=== PATIENT | female | born 1930 | race American Indian/Alaskan Native ===

== ENCOUNTER 2017-04-06 13:00 | Inpatient (IN) | payer MEDICARE, BC ==
[2017-04-06] MEDS ORDERED: Lidocaine 5% Patch TD STA (13:55)
--- NOTE | 2017-04-06 14:09 | ED PDOC ---
Arrival/HPI - General Chief Complaint: Back Pain Time Seen by Provider: 04/06/17 13:21 Historian: Patient, Family - History of Present Illness Narrative History of Present Illness (Text): 04/06/17 13:48 A 87 year old female, whose past medical history includes Parkinson's, hypertension and hyperlipidemia, presents to the emergency department complaining of lower back pain. Per family, patient had trouble getting up yesterday due to sudden back pain. Family contacted PMD and was told to receive X-Rays and MRI. While patient was about to have MRI done, she began experiencing severe pain and fell straight down to the floor and was assisted by family member. Also, when patient had to lay back for X-Ray process, patient was unable to lay flat down due to back pain. PMD was contacted afterwards and directed them to go to the ER. Patient was brought in by wheelchair and does not use a walker. Patient denies of any loss of consciousness, chest pain, shortness of breath, urinary output changes, or any other complaints. Family is uncertain if patient has had any prior injuries. Also, family states patient last had bloodwork done in July and has no history of kidney problems. PMD: Dr. Codie Chowdary Time/Duration: 24 hours Symptom Onset: Sudden Symptom Course: Unchanged Past Medical History - Provider Review Nursing Documentation Reviewed: Yes - Cardiac Hx Cardiac Disorders: Yes Hx Hypertension: Yes - Pulmonary Hx Respiratory Disorders: No - Neurological Hx Neurological Disorder: Yes Hx Parkinson's Disease: Yes - HEENT Hx HEENT Disorder: No - Renal Hx Renal Disorder: No - Endocrine/Metabolic Hx Endocrine Disorders: No - Hematological/Oncological Hx Blood Disorders: No - Integumentary Hx Dermatological Disorder: No - Musculoskeletal/Rheumatological Hx Falls: No - Gastrointestinal Hx Gastrointestinal Disorders: No - Genitourinary/Gynecological Hx Genitourinary Disorders: No - Psychiatric Hx Psychophysiologic Disorder: No Hx Substance Use: No - Surgical History Other/Comment: eye surgeryfatty tissue removed from both eyelids Family/Social History - Physician Review Nursing Documentation Reviewed: Yes Family/Social History: No Known Family HX Smoking Status: Never Smoked Hx Alcohol Use: No Hx Substance Use: No Allergies/Home Meds Allergies/Adverse Reactions: Allergies No Known Allergies Allergy (Verified 10/08/15 12:55) Home Medications: Home Meds Medication Instructions Recorded Confirmed Carbidopa/Levodopa 50/200 CR 50 mg PO DAILY 10/08/15 04/06/17 [Sinemet CR] Losartan/Hydrochlorothiazide 100 mg PO DAILY 10/08/15 04/06/17 [Losartan-Hctz 100-12.5 mg Tab] Simvastatin 20 mg PO DAILY 10/08/15 04/06/17 Aspirin 81 mg PO DAILY 04/06/17 04/06/17 Review of Systems - Physician Review All systems were reviewed & negative as marked: Yes - Review of Systems Respiratory: absent: SOB Cardiovascular: absent: Chest Pain Genitourinary Female: absent: Urine Output Changes Musculoskeletal: Back Pain (lower back pain) Neurological: absent: Other (no loss of consciousness) Physical Exam Vital Signs Reviewed: Yes Vital Signs Temp Pulse Resp BP Pulse Ox 04/06/17 18:35 59 L 16 140/82 17 L 04/06/17 16:00 56 L 16 164/87 H 97 04/06/17 13:17 97.7 F 59 L 20 118/74 99 Temperature: Afebrile Blood Pressure: Normal Pulse: Regular Respiratory Rate: Normal Appearance: Positive for: Well-Appearing Pain Distress: None Mental Status: Positive for: Alert and Oriented X 3 - Systems Exam Head: Present: Atraumatic, Normocephalic Pupils: Present: PERRL Extroacular Muscles: Present: EOMI Conjunctiva: Present: Normal Mouth: Present: Moist Mucous Membranes Nose (External): Present: Atraumatic Nose (Internal): Present: Normal Inspection Neck: Present: Normal Range of Motion. No: MIDLINE TENDERNESS Respiratory/Chest: Present: Clear to Auscultation, Good Air Exchange. No: Respiratory Distress, Accessory Muscle Use Cardiovascular: Present: Regular Rate and Rhythm, Normal S1, S2. No: Murmurs Abdomen: Present: Normal Bowel Sounds. No: Tenderness, Distention, Peritoneal Signs Back: Present: Midline Tenderness (Lumbar midline tenderness), Paraspinal Tenderness (Lumbar) Upper Extremity: Present: Normal Inspection, Normal ROM, NORMAL PULSES. No: Cyanosis, Edema Lower Extremity: Present: Normal Inspection, NORMAL PULSES, Normal ROM Neurological: Present: GCS=15, CN II-XII Intact, Speech Normal, Motor Func Grossly Intact, Normal Sensory Function. No: Gait Normal Skin: Present: Warm, Dry, Normal Color. No: Rashes Psychiatric: Present: Alert, Oriented x 3, Normal Insight, Normal Concentration Medical Decision Making ED Course and Treatment: 04/06/17 13:54 Impression: 87 year old female with lower back pain. Physical exam shows lumbar midline tenderness; and ROM decreased. Differential Diagnosis included but are not limited to: Lumbar Herniation vs. Strain Plan: -- Tylenol -- Toradol -- Lidoderm -- Reassess and disposition Prior Visits: Notes and results from previous visits were reviewed. Patient was last seen here in the emergency department on 10/08/2015 for right-sided numbness and generalized weakness. Patient was admitted. Progress Notes: Lumbar and Pelvis xray negative for acute fracture. MRI lumbar negative for acute fracture. I attempted to have patient walk and she was unable to walk at her baseline and continued to have pain. Tramadol was ordered for additional pain control. Dr. Thorne agreed to place her on her service but she will admit to Dr. Hernandez who admits to the hospitalists. I discussed case with Dr. Beth Ruiz who accepted the case. Oxy sat is not 17. That is a type. 97%RA oxy sat - Medication Orders Current Medication Orders: Heparin Sodium (Porcine) (Heparin) 5,000 units SC Q12 [facility] PRN Reason: Protocol Ketorolac Tromethamine (Toradol) 15 mg IVP Q6 PRN PRN Reason: Pain, severe (8-10) Lidocaine (Lidoderm) 1 ea TD DAILY [facility] Naproxen (Anaprox Ds) 550 mg PO BID PRN PRN Reason: Pain, moderate (4-7) Pantoprazole Sodium (Protonix Ec Tab) 40 mg PO 0600 [facility] Discontinued Medications Acetaminophen (Tylenol 325mg Tab) 975 mg PO STAT STA Stop: 04/06/17 13:56 Last Admin: 04/06/17 14:12 Dose: 975 mg [facility] Pain/Vitals Document 04/06/17 14:12 SF (Rec: 04/06/17 14:12 [place] [facility] [id number][place] Pain Reassessment Is This A Pain ReAssessment? Yes Sleep Is patient sleeping during reassessment? No Presence of Pain Presence of Pain Yes Location Pain Location Body Site Back Re-Assess: MAR Pain/Vitals Document 04/06/17 15:12 SF (Rec: 04/06/17 18:09 SF [facility] [id number]) Pain Reassessment Is This A Pain ReAssessment? Yes Sleep Is patient sleeping during reassessment? No Presence of Pain Presence of Pain No Ketorolac Tromethamine (Toradol) 30 mg IM STAT STA Stop: 04/06/17 13:56 Last Admin: 04/06/17 14:13 Dose: 30 mg MAR Pain Assessment Document 04/06/17 14:13 SF (Rec: 04/06/17 14:13 SF [facility] [id number]) Pain Reassessment Is this a pain reassessment? Yes Sleep Is patient sleeping during reassessment? No Presence of Pain Presence of Pain Yes IM Administration Charges Document 04/06/17 14:13 SF (Rec: 04/06/17 14:13 SF [facility] [id number]) Injection Site MAR Injection Site Left Deltoid Charges for Administration # of IM Administrations 1 Re-Assess: MAR Pain Assessment Document 04/06/17 15:13 SF (Rec: 04/06/17 18:09 SF [facility] [id number]) Pain Reassessment Is this a pain reassessment? Yes Sleep Is patient sleeping during reassessment? No Presence of Pain Presence of Pain No Lidocaine (Lidoderm) 1 ea TD STAT STA Stop: 04/06/17 13:56 Last Admin: 04/06/17 14:12 Dose: 1 ea MAR Transdermal Patch Site Document 04/06/17 14:12 SF (Rec: 04/06/17 14:13 SF [facility] [id number]) Transdermal Patch Site Transdermal Patch Site Left Lower Back - Scribe Statement The provider has reviewed the documentation as recorded by the Buzz Morelos Provider Scribe Attestation: All medical record entries made by the Buzz were at my direction and personally dictated by me. I have reviewed the chart and agree that the record accurately reflects my personal performance of the history, physical exam, medical decision making, and the department course for this patient. I have also personally directed, reviewed, and agree with the discharge instructions and disposition. Disposition/Present on Arrival - Present on Arrival Any Indicators Present on Arrival: No History of DVT/PE: No History of Uncontrolled Diabetes: No Urinary Catheter: No History of Decub. Ulcer: No History Surgical Site Infection Following: None - Disposition Have Diagnosis and Disposition been Completed?: Yes Diagnosis: Intractable back pain Disposition: HOSPITALIZED Disposition Time: 15:22 Patient Plan: Admission Patient Problems: Current Active Problems Problem Status Onset Intractable back pain Acute Condition: FAIR
[2017-04-06] MEDS ORDERED: Naproxen 550 mg Tab PO PRN (17:36)
--- NOTE | 2017-04-06 17:59 | CP.PCM.HP ---
<Bryan Lnua - Last Filed: 04/06/17 17:50> History of Present Illness - History of Present Illness History of Present Illness: Dr. Nieves Service CC: Low Back Pain Pt is a 87 F with a PMHx of Parkinsons, HTN, and HLD that [place] [facility] [place] with complaints of acute low back pain. Pt states that the low back pain began last night in the evening while trying to stand up from a seated position at which time she felt a sharp pain in her lower back rated at a 8/10 without radiation that hindered her from being able to get up on her own. Pt has a good support system, and her son was able to help ambulate her to the bed where she was again unable to find a comfortable position due to the pain. Pt was previously scheduled for a flushot at her PMD and during the visit was suggested that she go [place] [facility] [place]. While at the imaging center, the patient stated that her legs "gave out" due to the pain and was brought to the floor to her kneed by her son without hitting her head or loss of consciousness. Pt was seen and examined in the ER. Pt denied fever, chills, sob , chest pains, abdominal pains, n/v/d/c, urinary or fecal incontinence or any alarm symptoms. PMHx: Parkinsons, HTN, and HLD PSHx: Eyelid surgery Famhx: Noncontributory SHx: Denied tobacco/etoh/ illicits. Lives home alone with good support system with family nearby. Ambulates on her own with shuffling Allergies: NKDA Meds: Sinemet, lipitor, asa, losartan/hctz, PMD: Dr. Desouza Present on Admission - Present on Admission Any Indicators Present on Admission: No Review of Systems - Review of Systems Review of Systems: as per HPI otherwise Negative Past Patient History - Past Social History Smoking Status: Never Smoked - CARDIAC Hx Cardiac Disorders: Yes Hx Hypertension: Yes - PULMONARY Hx Respiratory Disorders: No - NEUROLOGICAL Hx Neurological Disorder: Yes Hx Parkinson's Disease: Yes - HEENT Hx HEENT Problems: No - RENAL Hx Chronic Kidney Disease: No - ENDOCRINE/METABOLIC Hx Endocrine Disorders: No - HEMATOLOGICAL/ONCOLOGICAL Hx Blood Disorders: No - INTEGUMENTARY Hx Dermatological Problems: No - MUSCULOSKELETAL/RHEUMATOLOGICAL Hx Falls: No - GASTROINTESTINAL Hx Gastrointestinal Disorders: No - GENITOURINARY/GYNECOLOGICAL Hx Genitourinary Disorders: No - PSYCHIATRIC Hx Psychophysiologic Disorder: No Hx Substance Use: No - SURGICAL HISTORY Other/Comment: eye surgeryfatty tissue removed from both eyelids Meds Allergies/Adverse Reactions: Allergies Allergy/AdvReac Type Severity Reaction Status Date / Time No Known Allergies Allergy Verified 10/08/15 12:55 Physical Exam - Constitutional Appears: No Acute Distress - Head Exam Head Exam: ATRAUMATIC, NORMAL INSPECTION, NORMOCEPHALIC - Eye Exam Eye Exam: EOMI, Normal appearance, PERRL - ENT Exam ENT Exam: Mucous Membranes Moist, Normal Exam - Neck Exam Neck exam: Positive for: Normal Inspection - Respiratory Exam Respiratory Exam: Clear to Auscultation Bilateral, NORMAL BREATHING PATTERN - Cardiovascular Exam Cardiovascular Exam: REGULAR RHYTHM, +S1, +S2 - GI/Abdominal Exam GI & Abdominal Exam: Normal Bowel Sounds, Soft. absent: Tenderness - Extremities Exam Extremities exam: Positive for: normal inspection - Back Exam Back exam: paraspinal tenderness, tenderness, vertebral tenderness - Neurological Exam Neurological exam: Alert, CN II-XII Intact, Normal Gait, Oriented x3, Reflexes Normal - Psychiatric Exam Psychiatric exam: Normal Affect, Normal Mood - Skin Skin Exam: Dry, Intact, Normal Color, Warm Results - Vital Signs Recent Vital Signs: Last Vital Signs Temp 97.7 F 04/06/17 13:17 Pulse 56 L 04/06/17 16:00 Resp 16 04/06/17 16:00 BP 164/87 H 04/06/17 16:00 Pulse Ox 97 04/06/17 16:00 Assessment & Plan - Assessment and Plan (Free Text) Assessment: 87 F with PMHx of HTN, Parkinsons, and HLD, admitted for intractable low back pain Intractable Low back pain - MRI/Lumbar XRay demonstrated chronic L3 compression deformity at endplate - Pain control: naproxen, toradol, lidoderm patch - Reassess, consider pain management - PT/OT Eval HTN - Stable, continue to monitor - Continue home meds - losartan/hctz HLD - fu lipid panel - continue home meds - lipitor Parkinson's - continue home meds - Sinemet GI/DVT ppx: Protonix, Heparin Seen reviewed and discussed with attending <Artemio Nieves - Last Filed: 04/06/17 19:02> Results - Vital Signs Recent Vital Signs: Last Vital Signs Temp 97.7 F 04/06/17 13:17 Pulse 59 L 04/06/17 18:35 Resp 16 04/06/17 18:35 BP 140/82 04/06/17 18:35 Pulse Ox 17 L 04/06/17 18:35 - Labs Result Diagrams: 04/06/17 18:20 04/06/17 18:08 Labs: Laboratory Results - last 24 hr 04/06/17 04/06/17 04/06/17 18:08 18:20 18:20 WBC 11.2 H D RBC 4.47 Hgb 13.5 Hct 40.1 MCV 89.7 MCH 30.2 MCHC 33.7 RDW 13.1 Plt Count 161 MPV 10.3 Gran % 60.6 Lymph % (Auto) 28.5 Hamilton % (Auto) 7.9 H Eos % (Auto) 2.8 Baso % (Auto) 0.2 Gran # 6.80 H Lymph # 3.2 Hamilton # 0.9 H Eos # 0.3 Baso # 0.02 APTT 33.1 H Sodium 141 Potassium 3.6 Chloride 102 Carbon Dioxide 31 Anion Gap 12 BUN 31 H Creatinine 1.2 Est GFR ( Amer) 52 Est GFR (Non-Af Amer) 43 Random Glucose 95 Calcium 9.5 Phosphorus 3.8 Magnesium 1.8 Triglycerides 88 Cholesterol 177 HDL Cholesterol 80 H Attending/Attestation - Attestation I have personally seen and examined this patient.: Yes I have fully participated in the care of the patient.: Yes I have reviewed all pertinent clinical information: Yes Notes (Text): 04/06/17 18:58 87 year old female with past medical history of hypertension, dyslipidemia and Parkinson's who presents with acute onset of low back pain. LXR and MRI reviewed showing mild chronic L3 compression deformity. Will continue with analgesics as above. PT evaluation requested as well. Continue with home medications for hypertension and dyslipidemia. Family is at bedside and questions were answered. Artemio Nieves MD Hospitalist.
[2017-04-06 18:29] LABS: BASO # 0.02 K/mm3 (0.0-2.0); BASO % 0.2 % (0.0-3.0); EOS # 0.3 (0.0-0.7); EOS % 2.8 % (1.5-5.0); GRAN # 6.8 (1.4-6.5); GRAN % 60.6 % (50.0-68.0); HEMATOCRIT 40.1 % (36.0-48.0); LYMPH # 3.2 (1.2-3.4); LYMPH % 28.5 % (22.0-35.0); MEAN CELL VOLUME 89.7 fl (80.0-105.0); MEAN CORPUSCULAR HEMOGLOBIN 30.2 pg (25.0-35.0); MEAN CORPUSCULAR HGB CONC 33.7 g/dl (31.0-37.0); MEAN PLATELET VOLUME 10.3 fl (7.0-11.0); MONO # 0.9 (0.1-0.6); MONO % 7.9 % (1.0-6.0); RED CELL DISTRIBUTION WIDTH 13.1 % (11.5-14.5); WHITE BLOOD COUNT 11.2 10^3/ul (4.5-11.0)
[2017-04-06 18:52] LABS: CALCIUM 9.5 mg/dL (8.4-10.5); MAGNESIUM 1.8 mg/dL (1.7-2.2); PHOSPHOROUS 3.8 mg/dL (2.5-4.5); POTASSIUM 3.6 mmol/L (3.6-5.0)
[2017-04-06 20:53] VITALS: BMI 23.9
[2017-04-06] MEDS ORDERED: Influenza Vaccine 60 mcg/0.5 mL SYR (4YR UP) IM ONE (20:54)
[2017-04-06] MEDS ORDERED: Pneumococcal 23-Valent Vaccine IM ONE (20:54)
[2017-04-07] MEDS: Pantoprazole 40 mg EC Tab PO SCH (05:56)
[2017-04-07 07:30] LABS: BASO # 0.02 K/mm3 (0.0-2.0); BASO % 0.3 % (0.0-3.0); EOS # 0.3 (0.0-0.7); EOS % 3.9 % (1.5-5.0); GRAN # 4.9 (1.4-6.5); GRAN % 63.2 % (50.0-68.0); HEMATOCRIT 35.9 % (36.0-48.0); LYMPH % 25.4 % (22.0-35.0); MEAN CELL VOLUME 89.1 fl (80.0-105.0); MEAN CORPUSCULAR HEMOGLOBIN 29.8 pg (25.0-35.0); MEAN CORPUSCULAR HGB CONC 33.4 g/dl (31.0-37.0); MEAN PLATELET VOLUME 10.4 fl (7.0-11.0); MONO # 0.6 (0.1-0.6); MONO % 7.2 % (1.0-6.0); RED CELL DISTRIBUTION WIDTH 13.1 % (11.5-14.5); WHITE BLOOD COUNT 7.8 10^3/ul (4.5-11.0)
[2017-04-07 07:40] LABS: ALB/GLOB RATIO 1.2 (1.1-1.8); BILIRUBIN,TOTAL 0.8 mg/dL (0.2-1.3); CALCIUM 9.2 mg/dL (8.4-10.5); MAGNESIUM 1.9 mg/dL (1.7-2.2); PHOSPHOROUS 4.9 mg/dL (2.5-4.5); TOTAL PROTEIN 7.1 g/dL (5.8-8.3)
[2017-04-07] MEDS: Carbidopa/Levodopa 50/200 CR PO SCH (09:39)
[2017-04-07] MEDS: Lidocaine 5% Patch TD SCH (09:43)
--- NOTE | 2017-04-07 10:44 | RAD ---
HISTORY: ro pna COMPARISON: 10/08/2015 FINDINGS: LUNGS: No active pulmonary disease. Linear scarring at the left lung base PLEURA: No significant pleural effusion identified, no pneumothorax apparent. CARDIOVASCULAR: Normal. OSSEOUS STRUCTURES: No significant abnormalities. VISUALIZED UPPER ABDOMEN: Normal. OTHER FINDINGS: None. IMPRESSION: No active disease.
--- NOTE | 2017-04-07 12:59 | CP.PCM.PN ---
<Mustapha Herrera - Last Filed: 04/07/17 12:53> Subjective - Date & Time of Evaluation Date of Evaluation: 04/07/17 Time of Evaluation: 12:53 - Subjective Subjective: Pt seen and examined at bedside. Pt doing well overnight with no acute complaints. Pt reports improvement in back pain on her pain medication. Denies CP, SOB, N/V/D, fever, chills. Objective - Vital Signs/Intake and Output Vital Signs (last 24 hours): Temp Pulse Resp BP Pulse Ox 98.9 F 82 18 149/72 94 L 04/07/17 07:00 04/07/17 07:00 04/07/17 07:00 04/07/17 07:00 04/07/17 07:00 Intake and Output: 04/07/17 04/07/17 06:59 18:59 Intake Total 360 Balance 360 - Medications Medications: Current Medications Aspirin (Ecotrin) 81 mg PO DAILY [facility] Last Admin: 04/07/17 09:39 Dose: 81 mg Atorvastatin Calcium (Lipitor) 10 mg PO DIN [facility] Carbidopa/Levodopa (Sinemet Cr) 1 tab PO DAILY [facility] Last Admin: 04/07/17 09:39 Dose: 1 tab Heparin Sodium (Porcine) (Heparin) 5,000 units SC Q12 [facility] PRN Reason: Protocol Last Admin: 04/06/17 22:00 Dose: Not Given Ketorolac Tromethamine (Toradol) 15 mg IVP Q6 PRN PRN Reason: Pain, severe (8-10) Lidocaine (Lidoderm) 1 ea TD DAILY [facility] Last Admin: 04/07/17 09:43 Dose: 1 ea Naproxen (Anaprox Ds) 550 mg PO BID PRN PRN Reason: Pain, moderate (4-7) Pantoprazole Sodium (Protonix Ec Tab) 40 mg PO 0600 [facility] Last Admin: 04/07/17 05:56 Dose: Not Given - Labs Labs: 04/07/17 07:27 04/07/17 07:27 APTT 33.1 Seconds (23.7-30.8) H 04/06/17 18:20 - Constitutional Appears: Non-toxic, No Acute Distress - Head Exam Head Exam: ATRAUMATIC, NORMAL INSPECTION, NORMOCEPHALIC - ENT Exam ENT Exam: Mucous Membranes Moist - Respiratory Exam Respiratory Exam: Clear to Ausculation Bilateral, NORMAL BREATHING PATTERN. absent: Rales, Rhonchi, Wheezes - Cardiovascular Exam Cardiovascular Exam: RRR, +S1, +S2 - GI/Abdominal Exam GI & Abdominal Exam: Soft, Normal Bowel Sounds. absent: Tenderness - Extremities Exam Extremities Exam: Normal Inspection. absent: Calf Tenderness, Pedal Edema - Back Exam Back Exam: paraspinal tenderness (On left lumbar area. Hypertonic paraspinal muscles) - Neurological Exam Neurological Exam: Alert, Awake, Oriented x3 - Psychiatric Exam Psychiatric exam: Normal Affect, Normal Mood - Skin Skin Exam: Intact, Normal Color, Warm Assessment and Plan - Assessment and Plan (Free Text) Plan: 87 y/o F with PMH of HTN, Parkinsons, and HLD presented with intractable low back pain. Pt will also continue IV pain medications. Pt will require TCU stay for further rehabilitation. Intractable Low back pain - MRI/Lumbar XRay demonstrated chronic L3 compression deformity at endplate - Continue naproxen, toradol, lidoderm patch - Continue PT HTN - BP stable - Continue losartan/hctz HLD - WNL - Continue Lipitor Parkinson's - Restart Sinemet - Continue to monitor GI/DVT ppx - Protonix - Heparin Sharon, PGY-2 <Artemio Nieves - Last Filed: 04/07/17 14:03> Objective - Vital Signs/Intake and Output Vital Signs (last 24 hours): Temp Pulse Resp BP Pulse Ox 98.9 F 82 18 149/72 94 L 04/07/17 07:00 04/07/17 07:00 04/07/17 07:00 04/07/17 07:00 04/07/17 07:00 - Medications Medications: Current Medications Aspirin (Ecotrin) 81 mg PO DAILY [facility] Last Admin: 04/07/17 09:39 Dose: 81 mg Atorvastatin Calcium (Lipitor) 10 mg PO DIN [facility] Carbidopa/Levodopa (Sinemet Cr) 1 tab PO DAILY [facility] Last Admin: 04/07/17 09:39 Dose: 1 tab Heparin Sodium (Porcine) (Heparin) 5,000 units SC Q12 [facility] PRN Reason: Protocol Last Admin: 04/06/17 22:00 Dose: Not Given Ketorolac Tromethamine (Toradol) 15 mg IVP Q6 PRN PRN Reason: Pain, severe (8-10) Lidocaine (Lidoderm) 1 ea TD DAILY [facility] Last Admin: 04/07/17 09:43 Dose: 1 ea Naproxen (Anaprox Ds) 550 mg PO BID PRN PRN Reason: Pain, moderate (4-7) Pantoprazole Sodium (Protonix Ec Tab) 40 mg PO 0600 [facility] Last Admin: 04/07/17 05:56 Dose: Not Given - Labs Labs: APTT 33.1 Seconds (23.7-30.8) H 04/06/17 18:20 Attending/Attestation - Attestation I have personally seen and examined this patient.: Yes I have fully participated in the care of the patient.: Yes I have reviewed all pertinent clinical information, including history, physical exam and plan: Yes Notes (Text): 04/07/17 14:01 87 year old female with past medical history of hypertension, dyslipidemia and Parkinson's who presented with acute onset of low back pain. LXR and MRI showed mild chronic L3 compression deformity. Continue with analgesics as above. She reports pain has improved but complains of weakness. She was seen by PT this morning who is currently recommending TCU. Continue with home medications for hypertension and dyslipidemia. She is on sinemet for history of Parkinson's. Artemio Nieves MD Hospitalist.
[2017-04-08] MEDS: Pantoprazole 40 mg EC Tab PO SCH (05:30)
--- NOTE | 2017-04-08 09:47 | CP.PCM.PN ---
<LisandraNicoletten - Last Filed: 04/08/17 09:48> Subjective - Date & Time of Evaluation Date of Evaluation: 04/08/17 Time of Evaluation: 08:45 - Subjective Subjective: Patient was seen and examined at bedside. Per nursing no acute events occurred overnight. The patient denies any chest pain, shortness of breath, nausea, vomiting, changes in vision, lightheadedness, dizziness, abdominal pain or any other complaints. Objective - Vital Signs/Intake and Output Vital Signs (last 24 hours): Temp Pulse Resp BP Pulse Ox 97.9 F 87 20 164/84 H 95 04/08/17 08:00 04/08/17 08:00 04/08/17 08:00 04/08/17 08:00 04/08/17 08:00 Intake and Output: 04/08/17 04/08/17 06:59 18:59 Intake Total 120 Balance 120 - Medications Medications: Current Medications Aspirin (Ecotrin) 81 mg PO DAILY [facility] Last Admin: 04/07/17 09:39 Dose: 81 mg Atorvastatin Calcium (Lipitor) 10 mg PO DIN [facility] Last Admin: 04/07/17 17:21 Dose: 10 mg Carbidopa/Levodopa (Sinemet Cr) 1 tab PO DAILY [facility] Last Admin: 04/07/17 09:39 Dose: 1 tab Heparin Sodium (Porcine) (Heparin) 5,000 units SC Q12 [facility] PRN Reason: Protocol Last Admin: 04/06/17 22:00 Dose: Not Given Ketorolac Tromethamine (Toradol) 15 mg IVP Q6 PRN PRN Reason: Pain, severe (8-10) Lidocaine (Lidoderm) 1 ea TD DAILY [facility] Last Admin: 04/07/17 09:43 Dose: 1 ea Naproxen (Anaprox Ds) 550 mg PO BID PRN PRN Reason: Pain, moderate (4-7) Pantoprazole Sodium (Protonix Ec Tab) 40 mg PO 0600 [facility] Last Admin: 04/08/17 05:30 Dose: 40 mg - Labs Labs: APTT 33.1 Seconds (23.7-30.8) H 04/06/17 18:20 - Head Exam Head Exam: ATRAUMATIC, NORMAL INSPECTION, NORMOCEPHALIC - Eye Exam Eye Exam: EOMI, Normal appearance, PERRL. absent: Periorbital tenderness Pupil Exam: NORMAL ACCOMODATION, PERRL. absent: Irregular, Unequal - ENT Exam ENT Exam: Mucous Membranes Moist, Normal Exam. absent: Normal External Ear Exam , Normal Oropharynx, TM's Normal Bilaterally - Neck Exam Neck Exam: Normal Inspection. absent: Lymphadenopathy, Thyromegaly - Respiratory Exam Respiratory Exam: Clear to Ausculation Bilateral, NORMAL BREATHING PATTERN. absent: Chest Wall Tenderness, Prolonged Expiratory Phase, Respiratory Distress - Cardiovascular Exam Cardiovascular Exam: REGULAR RHYTHM, RRR, +S1, +S2. absent: Gallop, Rubs - GI/Abdominal Exam GI & Abdominal Exam: Soft, Normal Bowel Sounds. absent: Rigid, Tenderness, Hyperactive Bowel Sounds - Extremities Exam Extremities Exam: Full ROM, Normal Capillary Refill, Normal Inspection. absent : Joint Swelling, Pedal Edema, Tenderness - Back Exam Back Exam: NORMAL INSPECTION. absent: CVA tenderness (L), CVA tenderness (R), paraspinal tenderness - Neurological Exam Neurological Exam: Alert, Awake - Psychiatric Exam Psychiatric exam: Normal Affect, Normal Mood - Skin Skin Exam: Dry, Intact Assessment and Plan - Assessment and Plan (Free Text) Assessment: 87 y/o F with PMH of HTN, Parkinsons, and HLD presented with intractable low back pain. Pt will also continue IV pain medications. Pt will require TCU stay for further rehabilitation. Plan: Intractable Low back pain - MRI/Lumbar XRay demonstrated chronic L3 compression deformity at endplate - Continue naproxen, toradol, lidoderm patch - Continue PT -Awaiting placement for rehab. HTN - BP stable - Continue losartan/hctz HLD - WNL - Continue Lipitor Parkinson's - Continue Sinemet - Continue to monitor GI/DVT ppx - Protonix - Heparin <Artemio Nieves - Last Filed: 04/08/17 19:04> Objective - Vital Signs/Intake and Output Vital Signs (last 24 hours): Temp Pulse Resp BP Pulse Ox 98.5 F 60 18 118/63 98 04/08/17 16:00 04/08/17 16:00 04/08/17 16:00 04/08/17 16:00 04/08/17 16:00 Intake and Output: 04/08/17 04/09/17 18:59 06:59 Intake Total 480 Balance 480 - Medications Medications: Current Medications Aspirin (Ecotrin) 81 mg PO DAILY [facility] Last Admin: 04/08/17 10:28 Dose: 81 mg Atorvastatin Calcium (Lipitor) 10 mg PO DIN [facility] Last Admin: 04/08/17 16:51 Dose: 10 mg Carbidopa/Levodopa (Sinemet Cr) 1 tab PO DAILY [facility] Last Admin: 04/08/17 10:32 Dose: 1 tab Heparin Sodium (Porcine) (Heparin) 5,000 units SC Q12 [facility] PRN Reason: Protocol Last Admin: 04/08/17 10:30 Dose: 5,000 units Ketorolac Tromethamine (Toradol) 15 mg IVP Q6 PRN PRN Reason: Pain, severe (8-10) Lidocaine (Lidoderm) 1 ea TD DAILY [facility] Last Admin: 04/08/17 10:29 Dose: 1 ea Naproxen (Anaprox Ds) 550 mg PO BID PRN PRN Reason: Pain, moderate (4-7) Pantoprazole Sodium (Protonix Ec Tab) 40 mg PO 0600 [facility] Last Admin: 04/08/17 05:30 Dose: 40 mg - Labs Labs: APTT 33.1 Seconds (23.7-30.8) H 04/06/17 18:20 Attending/Attestation - Attestation I have personally seen and examined this patient.: Yes I have fully participated in the care of the patient.: Yes I have reviewed all pertinent clinical information, including history, physical exam and plan: Yes Notes (Text): 04/08/17 19:03 87 year old female with past medical history of hypertension, dyslipidemia and Parkinson's who presented with acute onset of low back pain. Lumbar xray and MRI showed mild chronic L3 compression deformity. Continue with analgesics as above. PT is recommending TCU. Continue with home medications for hypertension and dyslipidemia. She is on sinemet for history of Parkinson's. Artemio Nieves MD Hospitalist.
[2017-04-08] MEDS: Lidocaine 5% Patch TD SCH (10:29)
[2017-04-08] MEDS: Carbidopa/Levodopa 50/200 CR PO SCH (10:32)
[2017-04-09] MEDS: Pantoprazole 40 mg EC Tab PO SCH (08:36)
--- NOTE | 2017-04-09 08:59 | CP.PCM.PN ---
<LisandraNicoletten - Last Filed: 04/09/17 09:02> Subjective - Date & Time of Evaluation Date of Evaluation: 04/09/17 Time of Evaluation: 07:57 - Subjective Subjective: Patient seen and examined at bedside. Per nursing staff no acute events occurred overnight. The patient is tolerating diet with no complaints. The patient denies any chest pain, shortness of breath, lightheadedness, dizziness, changes in vision, headaches, syncopal episodes, nausea, vomiting, or any other complaints. Objective - Vital Signs/Intake and Output Vital Signs (last 24 hours): Temp Pulse Resp BP Pulse Ox 98.5 F 60 18 118/63 98 04/08/17 16:00 04/08/17 16:00 04/08/17 16:00 04/08/17 16:00 04/08/17 16:00 Intake and Output: 04/09/17 04/09/17 06:59 18:59 Intake Total 240 Balance 240 - Medications Medications: Current Medications Aspirin (Ecotrin) 81 mg PO DAILY [facility] Last Admin: 04/08/17 10:28 Dose: 81 mg Atorvastatin Calcium (Lipitor) 10 mg PO DIN [facility] Last Admin: 04/08/17 16:51 Dose: 10 mg Carbidopa/Levodopa (Sinemet Cr) 1 tab PO DAILY [facility] Last Admin: 04/08/17 10:32 Dose: 1 tab Heparin Sodium (Porcine) (Heparin) 5,000 units SC Q12 [facility] PRN Reason: Protocol Last Admin: 04/08/17 21:27 Dose: 5,000 units Ketorolac Tromethamine (Toradol) 15 mg IVP Q6 PRN PRN Reason: Pain, severe (8-10) Lidocaine (Lidoderm) 1 ea TD DAILY [facility] Last Admin: 04/08/17 10:29 Dose: 1 ea Naproxen (Anaprox Ds) 550 mg PO BID PRN PRN Reason: Pain, moderate (4-7) Pantoprazole Sodium (Protonix Ec Tab) 40 mg PO 0600 [facility] Last Admin: 04/09/17 08:36 Dose: 40 mg - Labs Labs: APTT 33.1 Seconds (23.7-30.8) H 04/06/17 18:20 - Head Exam Head Exam: ATRAUMATIC, NORMAL INSPECTION, NORMOCEPHALIC - Eye Exam Eye Exam: EOMI, Normal appearance, PERRL Pupil Exam: NORMAL ACCOMODATION, PERRL. absent: Irregular, Unequal - ENT Exam ENT Exam: Mucous Membranes Moist, Normal Exam. absent: Normal Oropharynx, TM's Normal Bilaterally - Neck Exam Neck Exam: Full ROM, Normal Inspection. absent: Lymphadenopathy, Thyromegaly - Respiratory Exam Respiratory Exam: Clear to Ausculation Bilateral, NORMAL BREATHING PATTERN. absent: Chest Wall Tenderness, Prolonged Expiratory Phase, Respiratory Distress - Cardiovascular Exam Cardiovascular Exam: REGULAR RHYTHM, RRR, +S1, +S2. absent: Gallop, Rubs - GI/Abdominal Exam GI & Abdominal Exam: Soft, Normal Bowel Sounds. absent: Rigid, Hyperactive Bowel Sounds - Extremities Exam Extremities Exam: absent: Full ROM - Back Exam Back Exam: NORMAL INSPECTION. absent: CVA tenderness (L), CVA tenderness (R), paraspinal tenderness - Neurological Exam Neurological Exam: Alert, Awake, Oriented x3. absent: Normal Gait - Psychiatric Exam Psychiatric exam: Normal Affect, Normal Mood - Skin Skin Exam: Dry, Intact Assessment and Plan - Assessment and Plan (Free Text) Assessment: 87 y/o F with PMH of HTN, Parkinsons, and HLD presented with intractable low back pain. Pt will also continue IV pain medications. Pt will require TCU stay for further rehabilitation. Plan: Intractable Low back pain - MRI/Lumbar XRay demonstrated chronic L3 compression deformity at endplate - Continue naproxen, toradol, lidoderm patch - Continue PT -Awaiting placement for rehab. HTN - BP stable - Continue losartan/hctz HLD - WNL - Continue Lipitor Parkinson's - Continue Sinemet - Continue to monitor GI/DVT ppx - Protonix - Heparin <Artemio Nieves - Last Filed: 04/09/17 18:32> Objective - Vital Signs/Intake and Output Vital Signs (last 24 hours): Temp Pulse Resp BP Pulse Ox 98.2 F 82 18 142/81 99 04/09/17 16:00 04/09/17 16:00 04/09/17 16:00 04/09/17 16:00 04/09/17 16:00 Intake and Output: 04/09/17 04/09/17 06:59 18:59 Intake Total 240 480 Balance 240 480 - Medications Medications: Current Medications Aspirin (Ecotrin) 81 mg PO DAILY [facility] Last Admin: 04/09/17 10:30 Dose: 81 mg Atorvastatin Calcium (Lipitor) 10 mg PO DIN [facility] Last Admin: 04/09/17 17:35 Dose: 10 mg Carbidopa/Levodopa (Sinemet Cr) 1 tab PO DAILY [facility] Last Admin: 04/09/17 10:30 Dose: 1 tab Heparin Sodium (Porcine) (Heparin) 5,000 units SC Q12 [facility] PRN Reason: Protocol Last Admin: 04/09/17 10:30 Dose: 5,000 units Ketorolac Tromethamine (Toradol) 15 mg IVP Q6 PRN PRN Reason: Pain, severe (8-10) Lidocaine (Lidoderm) 1 ea TD DAILY [facility] Last Admin: 04/09/17 10:31 Dose: 1 ea Naproxen (Anaprox Ds) 550 mg PO BID PRN PRN Reason: Pain, moderate (4-7) Pantoprazole Sodium (Protonix Ec Tab) 40 mg PO 0600 [facility] Last Admin: 04/09/17 08:36 Dose: 40 mg - Labs Labs: APTT 33.1 Seconds (23.7-30.8) H 04/06/17 18:20 Attending/Attestation - Attestation I have personally seen and examined this patient.: Yes I have fully participated in the care of the patient.: Yes I have reviewed all pertinent clinical information, including history, physical exam and plan: Yes Notes (Text): 04/09/17 18:31 87 year old female with past medical history of hypertension, dyslipidemia and Parkinson's who presented with acute onset of low back pain. Lumbar xray and MRI showed mild chronic L3 compression deformity. Continue with analgesics as above. She reports her pain has improved. However still complains of weakness. Pending TCU placement tomorrow. Continue with home medications for hypertension and dyslipidemia. She is on sinemet for history of Parkinson's. Artemio Nieves MD Hospitalist.
[2017-04-09] MEDS: Carbidopa/Levodopa 50/200 CR PO SCH (10:30)
[2017-04-09] MEDS: Lidocaine 5% Patch TD SCH (10:31)
[2017-04-10 01:17] VITALS: RESP 20
[2017-04-10] MEDS: Pantoprazole 40 mg EC Tab PO SCH (05:47)
[2017-04-10 07:50] VITALS: BP 158/81; PULSE 60; TEMP 98.1; O2SAT 97
--- NOTE | 2017-04-10 08:11 | PQF GENQUE ---
This form is a permanent part of the medical record Dr. Nieves, Patient admitted with c/o severe low back pain. Your documentation notes chronic L3 compression deformity. Could you clarify if you suspect this as the cause of back pain, unable to determine? Clarification of your documentation is requested to better reflect the severity of illness and intensity of treatment of your patient. Indicators present [] Specify: [] [] Specify: [] [] Specify: [] [] Specify: [] Location in the medical record that reflects the above clinical findings: [] Treatment Provided: [] PHYSICIAN'S RESPONSE Based on your medical judgment of the clinical indicators outlined above please clarify the following: [] Practitioner response [] If unable to determine, please check the box, sign and date. Present On Admission (POA) Indicator: [] Present at the time of admission [] Not present at the time of admission [] Clinically Undetermined MRI findings likely causing or contributing to her back pain. In responding to this query, please exercise your independent professional judgment. The fact that a question is asked does not imply that any particular answer is desired or expected. Thank you for your clarification on this documentation. If you have any questions please call:[ ] * Thank you, [ ]Sheba Davila [facility] #[id number] professor of poultry science [employer]
[2017-04-10] MEDS: Lidocaine 5% Patch TD SCH (10:22)
[2017-04-10] MEDS: Carbidopa/Levodopa 50/200 CR PO SCH (10:23)
--- NOTE | 2017-04-10 10:56 | CP.PCM.DIS ---
<Mustapha Herrera - Last Filed: 04/10/17 10:44> Provider - Provider Date of Admission: 04/07/17 12:52 Attending physician: Yenny Cavanaugh MD Primary care physician: Codie Desouza MD Time Spent in preparation of Discharge (in minutes): 45 Diagnosis - Discharge Diagnosis (1) Muscular deconditioning Status: Acute (2) Hyperlipidemia Status: Chronic (3) Hypertension Status: Chronic (4) Parkinson disease Status: Chronic Hospital Course - Lab Results Lab Results: Most Recent Lab Values WBC 7.8 10^3/ul (4.5-11.0) D 04/07/17 07:27 RBC 4.03 10^6/uL (3.5-6.1) 04/07/17 07:27 Hgb 12.0 g/dL (12.0-16.0) 04/07/17 07:27 Hct 35.9 % (36.0-48.0) L 04/07/17 07:27 MCV 89.1 fl (80.0-105.0) 04/07/17 07:27 MCH 29.8 pg (25.0-35.0) 04/07/17 07:27 MCHC 33.4 g/dl (31.0-37.0) 04/07/17 07:27 RDW 13.1 % (11.5-14.5) 04/07/17 07:27 Plt Count 214 10^3/uL (120.0-450.0) 04/07/17 07:27 MPV 10.4 fl (7.0-11.0) 04/07/17 07:27 Gran % 63.2 % (50.0-68.0) 04/07/17 07:27 Lymph % (Auto) 25.4 % (22.0-35.0) 04/07/17 07:27 [place] % (Auto) 7.2 % (1.0-6.0) H 04/07/17 07:27 Eos % (Auto) 3.9 % (1.5-5.0) 04/07/17 07:27 Baso % (Auto) 0.3 % (0.0-3.0) 04/07/17 07:27 Gran # 4.90 (1.4-6.5) 04/07/17 07:27 Lymph # 2.0 (1.2-3.4) 04/07/17 07:27 [place] # 0.6 (0.1-0.6) 04/07/17 07:27 Eos # 0.3 (0.0-0.7) 04/07/17 07:27 Baso # 0.02 K/mm3 (0.0-2.0) 04/07/17 07:27 APTT 33.1 Seconds (23.7-30.8) H 04/06/17 18:20 Sodium 142 mmol/L (132-148) 04/07/17 07:27 Potassium 4.0 mmol/L (3.6-5.0) 04/07/17 07:27 Chloride 105 mmol/L (95-110) 04/07/17 07:27 Carbon Dioxide 30 mmol/L (21-33) 04/07/17 07:27 Anion Gap 11 (10-20) 04/07/17 07:27 BUN 34 mg/dL (7-21) H 04/07/17 07:27 Creatinine 1.2 mg/dL (0.7-1.2) 04/07/17 07:27 Est GFR ( Amer) 52 04/07/17 07:27 Est GFR (Non-Af Amer) 43 04/07/17 07:27 Random Glucose 91 mg/dL (70-110) 04/07/17 07:27 Calcium 9.2 mg/dL (8.4-10.5) 04/07/17 07:27 Phosphorus 4.9 mg/dL (2.5-4.5) H 04/07/17 07:27 Magnesium 1.9 mg/dL (1.7-2.2) 04/07/17 07:27 Total Bilirubin 0.8 mg/dL (0.2-1.3) 04/07/17 07:27 AST 34 U/L (14-36) 04/07/17 07:27 ALT 29 U/L (7-56) 04/07/17 07:27 Alkaline Phosphatase 65 U/L (38-126) 04/07/17 07:27 Total Protein 7.1 g/dL (5.8-8.3) 04/07/17 07:27 Albumin 3.9 g/dL (3.0-4.8) 04/07/17 07:27 Globulin 3.2 gm/dL 04/07/17 07:27 Albumin/Globulin Ratio 1.2 (1.1-1.8) 04/07/17 07:27 Triglycerides 88 mg/dL (35-160) 04/06/17 18:08 Cholesterol 177 mg/dL (130-200) 04/06/17 18:08 LDL Cholesterol Direct 58 mg/dL (0-129) 04/06/17 18:08 HDL Cholesterol 80 mg/dL (29-60) H 04/06/17 18:08 - Hospital Course Hospital Course: 87 y/o F with PMH of HTN, HLD, and Parkinson's disease initially presented with acute lower back pain. Lumbar X-ray and Lumbar MRI displayed a chronic L3 compression deformity. The day after admission patient admitted to resolution of back pain. Patient was seen by physical therapy who recommended patient go to TCU for further therapy for her deconditioning. Pt will continue Sinemet for Parkinson's disease. Discharge Exam - Head Exam Head Exam: ATRAUMATIC, NORMAL INSPECTION, NORMOCEPHALIC - Eye Exam Eye Exam: EOMI, Normal appearance - Respiratory Exam Respiratory Exam: NORMAL BREATHING PATTERN, UNREMARKABLE - Cardiovascular Exam Cardiovascular Exam: RRR, +S1, +S2 - GI/Abdominal Exam GI & Abdominal Exam: Normal Bowel Sounds, Soft. absent: Tenderness - Extremities Exam Extremities exam: normal inspection - Neurological Exam Neurological exam: Alert, CN II-XII Intact, Oriented x3 - Psychiatric Exam Psychiatric exam: Normal Affect, Normal Mood - Skin Skin Exam: Intact, Normal Color, Warm Discharge Plan - Follow Up Plan Condition: FAIR Disposition: TRANSF TO SNF Instructions: Pneumococcal Vaccine for Adults (DC), Pain Management in the Elderly (DC), Parkinson Disease (DC), Non-pharmacological Pain Management Therapies for Adults (GEN), Chronic Pain (DC), Influenza Vaccine (DC), Chronic Hypertension (DC), Hypertension (DC), Hypertension (GEN), Fall Prevention (DC) Additional Instructions: Discharge to TCU Referrals: Codie Chowdary MD [Primary Care Provider] - <Yenny Cavanaugh - Last Filed: 04/11/17 12:36> Provider - Provider Date of Admission: 04/07/17 12:52 Attending physician: Yenny Cavanaugh MD Primary care physician: Codie Desouza MD Hospital Course - Lab Results Lab Results: Most Recent Lab Values WBC 7.8 10^3/ul (4.5-11.0) D 04/07/17 07: RBC 4.03 10^6/uL (3.5-6.1) 04/07/17 07: Hgb 12.0 g/dL (12.0-16.0) 04/07/17 07: Hct 35.9 % (36.0-48.0) L 04/07/17 07: MCV 89.1 fl (80.0-105.0) 04/07/17 07: MCH 29.8 pg (25.0-35.0) 04/07/17 07: MCHC 33.4 g/dl (31.0-37.0) 04/07/17: RDW 13.1 % (11.5-14.5) 04/07/17: Plt Count 214 10^3/uL (120.0-450.0) 04/07/17 07: MPV 10.4 fl (7.0-11.0) 04/07/17 07: Gran % 63.2 % (50.0-68.0) 04/07/17 07: Lymph % (Auto) 25.4 % (22.0-35.0) 04/07/17 07: [place] % (Auto) 7.2 % (1.0-6.0) H 04/07/17: Eos % (Auto) 3.9 % (1.5-5.0) 04/07/17 07: Baso % (Auto) 0.3 % (0.0-3.0) 04/07/17 07: Gran # 4.90 (1.4-6.5) 04/07/17 07: Lymph # 2.0 (1.2-3.4) 04/07/17 07:27 [place] # 0.6 (0.1-0.6) 04/07/17 07: Eos # 0.3 (0.0-0.7) 04/07/17 07: Baso # 0.02 K/mm3 (0.0-2.0) 04/07/17 07:27 APTT 33.1 Seconds (23.7-30.8) H 04/06/17 18:20 Sodium 142 mmol/L (132-148) 04/07/17 07:27 Potassium 4.0 mmol/L (3.6-5.0) 04/07/17 07:27 Chloride 105 mmol/L (95-110) 04/07/17 07:27 Carbon Dioxide 30 mmol/L (21-33) 04/07/17 07:27 Anion Gap 11 (10-20) 04/07/17 07:27 BUN 34 mg/dL (7-21) H 04/07/17 07:27 Creatinine 1.2 mg/dL (0.7-1.2) 04/07/17 07:27 Est GFR ( Amer) 52 04/07/17 07:27 Est GFR (Non-Af Amer) 43 04/07/17 07:27 Random Glucose 91 mg/dL (70-110) 04/07/17 07:27 Calcium 9.2 mg/dL (8.4-10.5) 04/07/17 07:27 Phosphorus 4.9 mg/dL (2.5-4.5) H 04/07/17 07:27 Magnesium 1.9 mg/dL (1.7-2.2) 04/07/17 07:27 Total Bilirubin 0.8 mg/dL (0.2-1.3) 04/07/17 07:27 AST 34 U/L (14-36) 04/07/17 07:27 ALT 29 U/L (7-56) 04/07/17 07:27 Alkaline Phosphatase 65 U/L (38-126) 04/07/17 07:27 Total Protein 7.1 g/dL (5.8-8.3) 04/07/17 07:27 Albumin 3.9 g/dL (3.0-4.8) 04/07/17 07:27 Globulin 3.2 gm/dL 04/07/17 07:27 Albumin/Globulin Ratio 1.2 (1.1-1.8) 04/07/17 07:27 Triglycerides 88 mg/dL (35-160) 04/06/17 18:08 Cholesterol 177 mg/dL (130-200) 04/06/17 18:08 LDL Cholesterol Direct 58 mg/dL (0-129) 04/06/17 18:08 HDL Cholesterol 80 mg/dL (29-60) H 04/06/17 18:08 Attending/Attestation - Attestation I have personally seen and examined this patient.: Yes I have fully participated in the care of the patient.: Yes I have reviewed all pertinent clinical information, including history, physical exam and plan: Yes Notes (Text): 04/11/17 12:34 Patient was seen and examined with medical information officer. Agreed with resident assessment and plan. 87 year old female with past medical history of hypertension, dyslipidemia and Parkinson's who presented with acute onset of low back pain. Lumbar xray and MRI showed mild chronic L3 compression deformity. Her pain has improved. However still complains of weakness. Patient will be discharged to TCU for rehabilitation. Continue with home medications for hypertension , dyslipidemia. and Parkinson's. Management plan was discussed in detail with patient Education was provided.
--- NOTE | 2017-04-13 06:32 | PQF GENQUE ---
This form is a permanent part of the medical record Dr. Cavanaugh, Clarification of your documentation is requested to better reflect the severity of illness and intensity of treatment of your patient. Indicators present: Patient admitted with c/o low back pain. Your documentation note in the D/S chronic compression deformity. Could you clarify if you suspect this as the cause of back pain. [] Specify: [] [] Specify: [] [] Specify: [] [] Specify: [] Location in the medical record that reflects the above clinical findings: [] Treatment Provided: [] PHYSICIAN'S RESPONSE yes Mild compression deformity of L 1 is most likely the cause of back pain Based on your medical judgment of the clinical indicators outlined above please clarify the following: [] Practitioner response [] If unable to determine, please check the box, sign and date. Present On Admission (POA) Indicator: yes [] Present at the time of admission [] Not present at the time of admission [] Clinically Undetermined In responding to this query, please exercise your independent professional judgment. The fact that a question is asked does not imply that any particular answer is desired or expected. Thank you for your clarification on this documentation. If you have any questions please call:[ ] * Thank you, [ ]BERNARD CARLISLEcasualty claims supervisor ALDAIR
== END 2017-04-10 16:00 | DRG 552 ==
LOC: ED 13:00 → ERH 15:22 → 5RSO 19:24 → OBSVTOIN 04-07 12:52
PROVIDERS: ADMIT Hospitalist; ATTEND Internal Medicine
DX: M43.8X6 Other specified deforming dorsopathies, lumbar region (principal); G20 Parkinson's disease; I10 Essential (primary) hypertension; E78.5 Hyperlipidemia, unspecified

== ENCOUNTER 2017-04-10 16:03 | Inpatient (IN) | payer OTHER, BC ==
[2017-04-10 16:48] VITALS: BMI 24.7
[2017-04-10] MEDS: Naproxen 550 mg Tab PO SCH (18:27)
[2017-04-10] MEDS ORDERED: Influenza Vaccine 60 mcg/0.5 mL SYR (4YR UP) IM ONE (20:18)
[2017-04-10] MEDS ORDERED: Pneumococcal 23-Valent Vaccine IM ONE (20:18)
[2017-04-11] MEDS: Pantoprazole 40 mg EC Tab PO SCH (06:03)
[2017-04-11] MEDS: Naproxen 550 mg Tab PO SCH ×2 (10:47→17:12)
[2017-04-11] MEDS: Lidocaine 5% Patch TD SCH (10:49)
[2017-04-11] MEDS: Carbidopa/Levodopa 50/200 CR PO SCH (10:53)
--- NOTE | 2017-04-11 13:11 | CP.PCM.HP ---
<Josue House - Last Filed: 04/11/17 13:18> History of Present Illness - History of Present Illness History of Present Illness: 87 F with a PMHx of Parkinsons, HTN, and HLD that presented to the [facility] ED with complaints of acute low back pain. Pt states that the low back pain began the other night in the evening while trying to stand up from a seated position at which time she felt a sharp pain in her lower back rated at a 8/10 without radiation that hindered her from being able to get up on her own. Pt has a good support system, and her son was able to help ambulate her to the bed where she was again unable to find a comfortable position due to the pain. Pt was previously scheduled for a flushot at her [facility] and during the visit was suggested that she go to [facility] for lumbar imaging. While at the imaging center, the patient stated that her legs "gave out" due to the pain and was brought to the floor to her kneed by her son without hitting her head or loss of consciousness. Pt was seen and examined in the ER. Pt denied fever, chills, sob , chest pains, abdominal pains, n/v/d/c, urinary or fecal incontinence or any alarm symptoms. Lumbar X-ray and Lumbar MRI displayed a chronic L3 compression deformity. The day after admission patient admitted to resolution of back pain. Patient was seen by physical therapy who recommended patient go to TCU for further therapy for her deconditioning. Pt will continue Sinemet for Parkinson's disease. PMHx: Parkinsons, HTN, and HLD PSHx: Eyelid surgery Famhx: Noncontributory SHx: Denied tobacco/etoh/ illicits. Lives home alone with good support system with family nearby. Ambulates on her own with shuffling Allergies: NKDA Meds: Sinemet, lipitor, asa, losartan/hctz, PMD: Dr. Desouza Present on Admission - Present on Admission Any Indicators Present on Admission: No Review of Systems - Review of Systems All systems: reviewed and no additional remarkable complaints except - Constitutional Constitutional: As Per HPI Past Patient History - Past Social History Smoking Status: Never Smoked - CARDIAC Hx Hypercholesterolemia: Yes Hx Hypertension: Yes - PULMONARY Hx Respiratory Disorders: No - NEUROLOGICAL Hx Neurological Disorder: Yes Hx Parkinson's Disease: Yes - HEENT Hx HEENT Problems: Yes (eyeglasses) Other/Comment: eye sx fatty tissue removed from both eyelids - RENAL Hx Chronic Kidney Disease: No - ENDOCRINE/METABOLIC Hx Endocrine Disorders: No - HEMATOLOGICAL/ONCOLOGICAL Hx Blood Disorders: No - INTEGUMENTARY Hx Dermatological Problems: No - MUSCULOSKELETAL/RHEUMATOLOGICAL Hx Falls: No - GASTROINTESTINAL Hx Gastrointestinal Disorders: No - GENITOURINARY/GYNECOLOGICAL Hx Genitourinary Disorders: No Hx Reproductive Disorders: No - PSYCHIATRIC Hx Substance Use: No - SURGICAL HISTORY Other/Comment: eye surgeryfatty tissue removed from both eyelids Meds Allergies/Adverse Reactions: Allergies Allergy/AdvReac Type Severity Reaction Status Date / Time No Known Allergies Allergy Verified 04/10/17 17:21 Physical Exam - Constitutional Appears: Non-toxic, No Acute Distress - Eye Exam Eye Exam: EOMI. absent: Scleral icterus - ENT Exam ENT Exam: Mucous Membranes Moist - Respiratory Exam Respiratory Exam: NORMAL BREATHING PATTERN. absent: Accessory Muscle Use, Respiratory Distress - Cardiovascular Exam Cardiovascular Exam: +S1, +S2. absent: Bradycardia, Tachycardia - GI/Abdominal Exam GI & Abdominal Exam: Normal Bowel Sounds, Soft. absent: Distended, Rigid, Tenderness - Extremities Exam Extremities exam: Positive for: normal inspection. Negative for: calf tenderness - Neurological Exam Neurological exam: Alert - Psychiatric Exam Psychiatric exam: Flat Affect - Skin Skin Exam: Normal Color Results - Vital Signs Recent Vital Signs: Last Vital Signs Temp 98.7 F 04/10/17 20:07 Pulse 65 04/10/17 20:07 Resp 16 04/10/17 20:07 BP 174/84 H 04/10/17 20:07 Pulse Ox Assessment & Plan - Assessment and Plan (Free Text) Assessment: 87F admitted to TCU 2/2 deconditioning Intractable Low back pain MRI/Lumbar XRay demonstrated chronic L3 compression deformity at endplate Continue naproxen, toradol, lidoderm patch Continue PT In Transitional Care Unit for deconditioning HTN BP stable Continue losartan/hctz HLD WNL Continue Lipitor Parkinson's Continue Sinemet Continue to monitor GI/DVT ppx Protonix Heparin <Yenny Cavanaugh - Last Filed: 04/11/17 13:35> Results - Vital Signs Recent Vital Signs: Last Vital Signs Temp 98.7 F 04/10/17 20:07 Pulse 65 04/10/17 20:07 Resp 16 04/10/17 20:07 BP 174/84 H 04/10/17 20:07 Pulse Ox Attending/Attestation - Attestation I have personally seen and examined this patient.: Yes I have fully participated in the care of the patient.: Yes I have reviewed all pertinent clinical information: Yes Notes (Text): 04/11/17 13:35 Patient was seen and examined with medical sales associate. Agreed with resident assessment and plan. 87 year old female with past medical history of hypertension, dyslipidemia and Parkinson's who presented with acute onset of low back pain. Lumbar xray and MRI showed mild chronic L3 compression deformity. Her pain has improved. However still complains of weakness. Patient will be discharged to TCU for rehabilitation. Continue with home medications for hypertension , dyslipidemia. and Parkinson's. Management plan was discussed in detail with patient Education was provided.
[2017-04-11 17:46] LABS: BASO # 0.02 K/mm3 (0.0-2.0); BASO % 0.2 % (0.0-3.0); EOS # 0.4 (0.0-0.7); EOS % 4.7 % (1.5-5.0); GRAN # 5.5 (1.4-6.5); GRAN % 58.3 % (50.0-68.0); HEMATOCRIT 34.1 % (36.0-48.0); LYMPH % 31.5 % (22.0-35.0); MEAN CELL VOLUME 89.3 fl (80.0-105.0); MEAN CORPUSCULAR HEMOGLOBIN 29.8 pg (25.0-35.0); MEAN CORPUSCULAR HGB CONC 33.4 g/dl (31.0-37.0); MEAN PLATELET VOLUME 9.5 fl (7.0-11.0); MONO # 0.5 (0.1-0.6); MONO % 5.3 % (1.0-6.0); RED CELL DISTRIBUTION WIDTH 13.1 % (11.5-14.5); WHITE BLOOD COUNT 9.4 10^3/ul (4.5-11.0)
[2017-04-11 17:55] LABS: ALB/GLOB RATIO 1.1 (1.1-1.8); BILIRUBIN,TOTAL 0.4 mg/dL (0.2-1.3); MAGNESIUM 1.7 mg/dL (1.7-2.2); PHOSPHOROUS 3.5 mg/dL (2.5-4.5); POTASSIUM 4.3 mmol/L (3.6-5.0); TOTAL PROTEIN 6.5 g/dL (5.8-8.3)
[2017-04-12] MEDS: Pantoprazole 40 mg EC Tab PO SCH (06:18)
[2017-04-12] MEDS ORDERED: [UNRECOGNIZED DRUG - OTHER] PO SCH (10:00)
[2017-04-12] MEDS ORDERED: LOSARTAN PO SCH (10:00)
[2017-04-12] MEDS ORDERED: HYDROCHLOROTHIAZIDE PO SCH (10:00)
[2017-04-12] MEDS: Lidocaine 5% Patch TD SCH (11:25)
[2017-04-12] MEDS: Carbidopa/Levodopa 50/200 CR PO SCH (11:29)
[2017-04-12] MEDS: Naproxen 550 mg Tab PO SCH (18:05)
[2017-04-13] MEDS: Pantoprazole 40 mg EC Tab PO SCH (05:44)
[2017-04-13] MEDS: Naproxen 550 mg Tab PO SCH ×2 (09:49→17:28)
[2017-04-13] MEDS: Carbidopa/Levodopa 50/200 CR PO SCH (09:50)
[2017-04-13] MEDS: Lidocaine 5% Patch TD SCH (11:39)
--- NOTE | 2017-04-13 13:11 | CP.PCM.PN ---
<Josue House - Last Filed: 04/13/17 13:11> Subjective - Date & Time of Evaluation Date of Evaluation: 04/13/17 Time of Evaluation: 10:00 - Subjective Subjective: Medicine Note Patient Seen and examined at bedside this morning. no acute events overnight. tolerating current diet. denies pain. states she is actively participating in physical therapy in the transitional care unit. denies fevers chills chest pain shortness of breath nausea vomiting diarrhea. Objective - Vital Signs/Intake and Output Vital Signs (last 24 hours): Temp Pulse Resp BP Pulse Ox 97.8 F 61 12 171/77 H 98 04/13/17 10:57 04/13/17 10:57 04/13/17 10:57 04/13/17 10:57 04/13/17 10:57 - Medications Medications: Current Medications Aspirin (Ecotrin) 81 mg PO 0800 [facility] Last Admin: 04/13/17 09:49 Dose: 81 mg Atorvastatin Calcium (Lipitor) 10 mg PO DIN [facility] Last Admin: 04/12/17 18:04 Dose: 10 mg Carbidopa/Levodopa (Sinemet Cr) 1 tab PO DAILY [facility] Last Admin: 04/13/17 09:50 Dose: 1 tab Heparin Sodium (Porcine) (Heparin) 5,000 units SC Q12 [facility] PRN Reason: Protocol Last Admin: 04/13/17 09:57 Dose: 5,000 units Hydrochlorothiazide (Microzide) 12.5 mg PO DAILY [facility] Last Admin: 04/13/17 09:50 Dose: 12.5 mg Ketorolac Tromethamine (Toradol) 15 mg IVP Q6 PRN PRN Reason: Pain, severe (8-10) Lidocaine (Lidoderm) 1 ea TD DAILY [facility] Last Admin: 04/13/17 11:39 Dose: 1 ea Losartan Potassium (Cozaar) 100 mg PO DAILY [facility] Last Admin: 04/13/17 09:49 Dose: 100 mg Naproxen (Anaprox Ds) 550 mg PO 0800,1800 [facility] Last Admin: 04/13/17 09:49 Dose: 550 mg Pantoprazole Sodium (Protonix Ec Tab) 40 mg PO 0600 [facility] Last Admin: 04/13/17 05:44 Dose: 40 mg - Labs Labs: 04/11/17 17:35 04/11/17 17:35 - Constitutional Appears: Non-toxic, No Acute Distress - Head Exam Head Exam: ATRAUMATIC - Eye Exam Eye Exam: EOMI. absent: Scleral icterus - ENT Exam ENT Exam: Mucous Membranes Moist - Respiratory Exam Respiratory Exam: NORMAL BREATHING PATTERN. absent: Accessory Muscle Use, Chest Wall Tenderness, Respiratory Distress - Cardiovascular Exam Cardiovascular Exam: +S1, +S2. absent: Bradycardia, Tachycardia - GI/Abdominal Exam GI & Abdominal Exam: Soft. absent: Distended, Tenderness - Neurological Exam Neurological Exam: Alert, Awake - Psychiatric Exam Psychiatric exam: Flat Affect - Skin Skin Exam: Normal Color, Warm Assessment and Plan - Assessment and Plan (Free Text) Assessment: 87 year old female with past medical history of hypertension, dyslipidemia and Parkinson's who presented with acute onset of low back pain. Lumbar xray and MRI showed mild chronic L3 compression deformity. patient in TCU for rehab. Plan: Intractable Low back pain MRI/Lumbar XRay demonstrated chronic L3 compression deformity at endplate Continue naproxen, toradol, lidoderm patch Continue PT In Transitional Care Unit for physical rehabilitation HTN BP stable Continue losartan/hctz HLD WNL Continue Lipitor Parkinson's Continue Sinemet Continue to monitor GI/DVT ppx Protonix Heparin labs q2-3 days Josue House PGY1 <Yenny Cavanaugh - Last Filed: 04/13/17 14:50> Objective - Vital Signs/Intake and Output Vital Signs (last 24 hours): Temp Pulse Resp BP Pulse Ox 97.8 F 61 12 171/77 H 98 04/13/17 14:00 04/13/17 14:00 04/13/17 14:00 04/13/17 14:00 04/13/17 10:57 - Medications Medications: Current Medications Aspirin (Ecotrin) 81 mg PO 0800 [facility] Last Admin: 04/13/17 09:49 Dose: 81 mg Atorvastatin Calcium (Lipitor) 10 mg PO DIN [facility] Last Admin: 04/12/17 18:04 Dose: 10 mg Carbidopa/Levodopa (Sinemet Cr) 1 tab PO DAILY [facility] Last Admin: 04/13/17 09:50 Dose: 1 tab Heparin Sodium (Porcine) (Heparin) 5,000 units SC Q12 [facility] PRN Reason: Protocol Last Admin: 04/13/17 09:57 Dose: 5,000 units Hydrochlorothiazide (Microzide) 12.5 mg PO DAILY [facility] Last Admin: 04/13/17 09:50 Dose: 12.5 mg Lidocaine (Lidoderm) 1 ea TD DAILY [facility] Last Admin: 04/13/17 11:39 Dose: 1 ea Losartan Potassium (Cozaar) 100 mg PO DAILY [facility] Last Admin: 04/13/17 09:49 Dose: 100 mg Naproxen (Anaprox Ds) 550 mg PO 0800,1800 [facility] Last Admin: 04/13/17 09:49 Dose: 550 mg Pantoprazole Sodium (Protonix Ec Tab) 40 mg PO 0600 [facility] Last Admin: 04/13/17 05:44 Dose: 40 mg - Labs Labs: 04/11/17 17:35 04/11/17 17:35 Attending/Attestation - Attestation I have personally seen and examined this patient.: Yes I have fully participated in the care of the patient.: Yes I have reviewed all pertinent clinical information, including history, physical exam and plan: Yes Notes (Text): 04/13/17 14:49 Patient was seen and examined with medical laboratory assistant. Agreed with resident assessment and plan. Patient blood pressure is running high this morning, we will stop NSAID. We will monitor and adjust medications. Management plan was discussed in detail with patient Education was provided.
[2017-04-14] MEDS: Pantoprazole 40 mg EC Tab PO SCH (05:18)
[2017-04-14 07:56] LABS: BASO # 0.02 K/mm3 (0.0-2.0); BASO % 0.2 % (0.0-3.0); EOS # 0.5 (0.0-0.7); EOS % 5.8 % (1.5-5.0); GRAN # 4.51 (1.4-6.5); GRAN % 50.3 % (50.0-68.0); HEMATOCRIT 35.6 % (36.0-48.0); LYMPH # 3.2 (1.2-3.4); LYMPH % 35.8 % (22.0-35.0); MEAN CELL VOLUME 89.7 fl (80.0-105.0); MEAN CORPUSCULAR HEMOGLOBIN 29.5 pg (25.0-35.0); MEAN CORPUSCULAR HGB CONC 32.9 g/dl (31.0-37.0); MEAN PLATELET VOLUME 9.4 fl (7.0-11.0); MONO # 0.7 (0.1-0.6); MONO % 7.9 % (1.0-6.0); RED CELL DISTRIBUTION WIDTH 13.2 % (11.5-14.5)
[2017-04-14 08:03] LABS: ALB/GLOB RATIO 1.2 (1.1-1.8); BILIRUBIN,TOTAL 0.3 mg/dL (0.2-1.3); CALCIUM 9.2 mg/dL (8.4-10.5); POTASSIUM 4.3 mmol/L (3.6-5.0); TOTAL PROTEIN 6.7 g/dL (5.8-8.3)
[2017-04-14] MEDS: Carbidopa/Levodopa 50/200 CR PO SCH (10:11)
[2017-04-14] MEDS: Lidocaine 5% Patch TD SCH (10:11)
[2017-04-15] MEDS: Pantoprazole 40 mg EC Tab PO SCH (06:22)
[2017-04-15] MEDS: Carbidopa/Levodopa 50/200 CR PO SCH (09:01)
[2017-04-15] MEDS: Lidocaine 5% Patch TD SCH (09:01)
--- NOTE | 2017-04-15 11:25 | CP.PCM.PN ---
<Pierce Ortiz - Last Filed: 04/15/17 11:26> Subjective - Date & Time of Evaluation Date of Evaluation: 04/15/17 Time of Evaluation: 08:15 - Subjective Subjective: Medicine Progress Note: Pt seen and examined at bedside. No Acute events overnight. Pt states that she is doing well with P.T. Denies any hip pain. Pt denies any f/c, sob, palpitations, cp, abd pain, n/v/d. Objective - Vital Signs/Intake and Output Vital Signs (last 24 hours): Temp Pulse Resp BP Pulse Ox 97.5 F L 61 20 90/60 L 95 04/14/17 22:00 04/14/17 22:00 04/14/17 22:00 04/14/17 22:00 04/14/17 22:00 - Medications Medications: Current Medications Acetaminophen (Tylenol 325mg Tab) 650 mg PO Q6H PRN PRN Reason: Pain, moderate (4-7) Aspirin (Ecotrin) 81 mg PO 0800 [facility] Last Admin: 04/15/17 09:00 Dose: 81 mg Atorvastatin Calcium (Lipitor) 10 mg PO DIN [facility] Last Admin: 04/14/17 17:10 Dose: 10 mg Carbidopa/Levodopa (Sinemet Cr) 1 tab PO DAILY [facility] Last Admin: 04/15/17 09:01 Dose: 1 tab Heparin Sodium (Porcine) (Heparin) 5,000 units SC 0600,1800 [facility] PRN Reason: Protocol Last Admin: 04/15/17 06:20 Dose: 5,000 units Hydrochlorothiazide (Microzide) 12.5 mg PO DAILY [facility] Last Admin: 04/14/17 10:11 Dose: 12.5 mg Lidocaine (Lidoderm) 1 ea TD DAILY [facility] Last Admin: 04/15/17 09:01 Dose: 1 ea Losartan Potassium (Cozaar) 100 mg PO DAILY [facility] Last Admin: 04/15/17 09:01 Dose: 100 mg Pantoprazole Sodium (Protonix Ec Tab) 40 mg PO 0600 [facility] Last Admin: 04/15/17 06:22 Dose: 40 mg - Labs Labs: 04/14/17 07:48 04/14/17 07:48 - Constitutional Appears: No Acute Distress - Head Exam Head Exam: ATRAUMATIC, NORMOCEPHALIC - Eye Exam Eye Exam: EOMI, PERRL - ENT Exam ENT Exam: Mucous Membranes Moist - Respiratory Exam Respiratory Exam: Clear to Ausculation Bilateral. absent: Rales, Rhonchi, Wheezes - Cardiovascular Exam Cardiovascular Exam: REGULAR RHYTHM, RRR, +S1, +S2 - GI/Abdominal Exam GI & Abdominal Exam: Soft. absent: Tenderness - Extremities Exam Extremities Exam: absent: Calf Tenderness, Pedal Edema - Neurological Exam Neurological Exam: Alert, Awake, Oriented x3 - Psychiatric Exam Psychiatric exam: Normal Affect, Normal Mood - Skin Skin Exam: Intact, Warm Assessment and Plan - Assessment and Plan (Free Text) Assessment: 87 year old female with past medical history of hypertension, dyslipidemia and Parkinson's who presented with acute onset of low back pain. Lumbar xray and MRI showed mild chronic L3 compression deformity. Patient in TCU for rehab and deconditioning. 1. TCU for Weakness and deconditioning - Cont PT 2. Intractable Low back pain -MRI/Lumbar XRay demonstrated chronic L3 compression deformity at endplate -Continue naproxen, toradol, lidoderm patch 3. HTN -BP 90s/60s -Will dec Losartan from 100mg --> 75mg -Continue losartan/hctz 4. HLD -WNL -Continue Lipitor 5. Parkinson's -Continue Sinemet -Continue to monitor 6. GI/DVT ppx -Protonix -HSQ Pt and plan was seen, reviewed and discussed in detail with Dr Cavanaugh. <Yenny Cavanaugh - Last Filed: 04/16/17 11:43> Objective - Vital Signs/Intake and Output Vital Signs (last 24 hours): Temp Pulse Resp BP Pulse Ox 98.4 F 69 14 121/92 H 97 04/15/17 16:00 04/15/17 16:00 04/15/17 16:00 04/15/17 16:00 04/15/17 16:00 - Labs Labs: 04/14/17 07:48 04/14/17 07:48 Attending/Attestation - Attestation I have personally seen and examined this patient.: Yes I have fully participated in the care of the patient.: Yes I have reviewed all pertinent clinical information, including history, physical exam and plan: Yes Notes (Text): 04/16/17 11:41 Patient was seen and examined with medical director/head team physician. 87 year old female with past medical history of hypertension, dyslipidemia and Parkinson's was admitted to hospital with acute onset of low back pain. Lumbar xray and MRI showed mild chronic L3 compression deformity. Her pain has improved. However still complains of weakness. Patient was admitted to TCU for rehabilitation. Blood pressure is running low, we will DC HCTZ.We will reduce Losartan dose to 50 mg po daily. Management plan was discussed in detail with patient Education was provided.
--- NOTE | 2017-04-15 16:41 | CP.PCM.DIS ---
<Pierce Ortiz - Last Filed: 04/15/17 16:36> Provider - Provider Date of Admission: 04/10/17 16:03 Attending physician: Yenny Cavanaugh MD Primary care physician: Codie Desouza MD Time Spent in preparation of Discharge (in minutes): 40 Hospital Course - Lab Results Lab Results: Most Recent Lab Values WBC 9.0 10^3/ul (4.5-11.0) 04/14/17 07:48 RBC 3.97 10^6/uL (3.5-6.1) 04/14/17 07:48 Hgb 11.7 g/dL (12.0-16.0) L 04/14/17 07:48 Hct 35.6 % (36.0-48.0) L 04/14/17 07:48 MCV 89.7 fl (80.0-105.0) 04/14/17 07:48 MCH 29.5 pg (25.0-35.0) 04/14/17 07:48 MCHC 32.9 g/dl (31.0-37.0) 04/14/17 07:48 RDW 13.2 % (11.5-14.5) 04/14/17 07:48 Plt Count 235 10^3/uL (120.0-450.0) 04/14/17 07:48 MPV 9.4 fl (7.0-11.0) 04/14/17 07:48 Gran % 50.3 % (50.0-68.0) 04/14/17 07:48 Lymph % (Auto) 35.8 % (22.0-35.0) H 04/14/17 07:48 [place] % (Auto) 7.9 % (1.0-6.0) H 04/14/17 07:48 Eos % (Auto) 5.8 % (1.5-5.0) H 04/14/17 07:48 Baso % (Auto) 0.2 % (0.0-3.0) 04/14/17 07:48 Gran # 4.51 (1.4-6.5) 04/14/17 07:48 Lymph # 3.2 (1.2-3.4) 04/14/17 07:48 [place] # 0.7 (0.1-0.6) H 04/14/17 07:48 Eos # 0.5 (0.0-0.7) 04/14/17 07:48 Baso # 0.02 K/mm3 (0.0-2.0) 04/14/17 07:48 Sodium 140 mmol/L (132-148) 04/14/17 07:48 Potassium 4.3 mmol/L (3.6-5.0) 04/14/17 07:48 Chloride 103 mmol/L (98-107) 04/14/17 07:48 Carbon Dioxide 29 mmol/L (21-33) 04/14/17 07:48 Anion Gap 12 (-20) 04/14/17 07:48 BUN 30 mg/dL (7-21) H 04/14/17 07:48 Creatinine 1.1 mg/dL (0.7-1.2) 04/14/17 07:48 Est GFR ( Amer) 57 04/14/17 07:48 Est GFR (Non-Af Amer) 47 04/14/17 07:48 Random Glucose 106 mg/dL (70-110) 04/14/17 07:48 Calcium 9.2 mg/dL (8.4-10.5) 04/14/17 07:48 Phosphorus 3.5 mg/dL (2.5-4.5) 04/11/17 17:35 Magnesium 1.7 mg/dL (1.7-2.2) 04/11/17 17:35 Total Bilirubin 0.3 mg/dL (0.2-1.3) 04/14/17 07:48 AST 88 U/L (14-36) H D 04/14/17 07:48 ALT 70 U/L (7-56) H 04/14/17 07:48 Alkaline Phosphatase 69 U/L (38-126) 04/14/17 07:48 Total Protein 6.7 g/dL (5.8-8.3) 04/14/17 07:48 Albumin 3.6 g/dL (3.0-4.8) 04/14/17 07:48 Globulin 3.1 gm/dL 04/14/17 07:48 Albumin/Globulin Ratio 1.2 (1.1-1.8) 04/14/17 07:48 - Hospital Course Hospital Course: 87 y/o F with PMH of HTN, HLD, and Parkinson's disease initially presented to the ED with acute onset lower back pain. Lumbar X-ray and Lumbar MRI displayed a chronic L3 compression deformity. Following day after the admission to the hospital the patient admitted to resolution of her back pain. Pt was subsequently evaluated and treated by physical therapy who recommended patient go to TCU for further therapy due to her weakness and deconditioning. PT completed a few days at the TCU. Pt blood pressure has been running low 100/70 and Losartan was reduced to 50mg daily. Today the pt states that she feels much better and want to go home accompanied byt her family members. No complaints at this time. Discharge Exam - Head Exam Head Exam: ATRAUMATIC, NORMOCEPHALIC - Eye Exam Eye Exam: EOMI, PERRL - ENT Exam ENT Exam: Mucous Membranes Moist - Respiratory Exam Respiratory Exam: Clear to PA & Lateral. absent: Rales, Rhonchi, Wheezes - Cardiovascular Exam Cardiovascular Exam: REGULAR RHYTHM, RRR, +S1, +S2 - GI/Abdominal Exam GI & Abdominal Exam: Soft. absent: Tenderness - Neurological Exam Neurological exam: Alert, Oriented x3 - Psychiatric Exam Psychiatric exam: Normal Affect, Normal Mood - Skin Skin Exam: Dry, Intact, Warm Discharge Plan - Discharge Medications Prescriptions: Losartan [Cozaar] 50 mg PO DAILY #30 tab - Follow Up Plan Condition: IMPROVED Disposition: HOME/ ROUTINE Instructions: Transient Ischemic Attack (DC), Hypertension (DC), Fall Prevention (DC) Additional Instructions: Continue prescribed medications by MD. Follow up within 3-4 days. If your symptoms recur come back to the ED. Take your BP twice daily and if systolic BP is greater than 110 than hold the Losartan 50mg that day. Discontinue HCTZ. Referrals: Codie Chowdary MD [Primary Care Provider] - <Yenny Cavanaugh - Last Filed: 04/16/17 11:46> Provider - Provider Date of Admission: 04/10/17 16:03 Attending physician: Yenny Cavanaugh MD Primary care physician: Codie Desouza MD Hospital Course - Lab Results Lab Results: Most Recent Lab Values WBC 9.0 10^3/ul (4.5-11.0) 04/14/17 07:48 RBC 3.97 10^6/uL (3.5-6.1) 04/14/17 07:48 Hgb 11.7 g/dL (12.0-16.0) L 04/14/17 07:48 Hct 35.6 % (36.0-48.0) L 04/14/17 07:48 MCV 89.7 fl (80.0-105.0) 04/14/17 07:48 MCH 29.5 pg (25.0-35.0) 04/14/17 07:48 MCHC 32.9 g/dl (31.0-37.0) 04/14/17 07:48 RDW 13.2 % (11.5-14.5) 04/14/17 07:48 Plt Count 235 10^3/uL (120.0-450.0) 04/14/17 07:48 MPV 9.4 fl (7.0-11.0) 04/14/17 07:48 Gran % 50.3 % (50.0-68.0) 04/14/17 07:48 Lymph % (Auto) 35.8 % (22.0-35.0) H 04/14/17 07:48 [place] % (Auto) 7.9 % (1.0-6.0) H 04/14/17 07:48 Eos % (Auto) 5.8 % (1.5-5.0) H 04/14/17 07:48 Baso % (Auto) 0.2 % (0.0-3.0) 04/14/17 07:48 Gran # 4.51 (1.4-6.5) 04/14/17 07:48 Lymph # 3.2 (1.2-3.4) 04/14/17 07:48 [place] # 0.7 (0.1-0.6) H 04/14/17 07:48 Eos # 0.5 (0.0-0.7) 04/14/17 07:48 Baso # 0.02 K/mm3 (0.0-2.0) 04/14/17 07:48 Sodium 140 mmol/L (132-148) 04/14/17 07:48 Potassium 4.3 mmol/L (3.6-5.0) 04/14/17 07:48 Chloride 103 mmol/L (98-107) 04/14/17 07:48 Carbon Dioxide 29 mmol/L (21-33) 04/14/17 07:48 Anion Gap 12 (-20) 04/14/17 07:48 BUN 30 mg/dL (7-21) H 04/14/17 07:48 Creatinine 1.1 mg/dL (0.7-1.2) 04/14/17 07:48 Est GFR ( Amer) 57 04/14/17 07:48 Est GFR (Non-Af Amer) 47 04/14/17 07:48 Random Glucose 106 mg/dL (70-110) 04/14/17 07:48 Calcium 9.2 mg/dL (8.4-10.5) 04/14/17 07:48 Phosphorus 3.5 mg/dL (2.5-4.5) 04/11/17 17:35 Magnesium 1.7 mg/dL (1.7-2.2) 04/11/17 17:35 Total Bilirubin 0.3 mg/dL (0.2-1.3) 04/14/17 07:48 AST 88 U/L (14-36) H D 04/14/17 07:48 ALT 70 U/L (7-56) H 04/14/17 07:48 Alkaline Phosphatase 69 U/L (38-126) 04/14/17 07:48 Total Protein 6.7 g/dL (5.8-8.3) 04/14/17 07:48 Albumin 3.6 g/dL (3.0-4.8) 04/14/17 07:48 Globulin 3.1 gm/dL 04/14/17 07:48 Albumin/Globulin Ratio 1.2 (1.1-1.8) 04/14/17 07:48 Attending/Attestation - Attestation I have personally seen and examined this patient.: Yes I have fully participated in the care of the patient.: Yes I have reviewed all pertinent clinical information, including history, physical exam and plan: Yes Notes (Text): 04/16/17 11:44 Patient was seen and examined with director medical surgical. 87 year old female with past medical history of hypertension, dyslipidemia and Parkinson's was admitted to hospital with acute onset of low back pain. Lumbar xray and MRI showed mild chronic L3 compression deformity. Her pain has improved. Patient was admitted to TCU for rehabilitation. Blood pressure is running low,Patient is asymptomatic, we have discontinued HCTZ, Losartan dose is reduced to 50 mg po daily. Patient has been advised to check her blood pressure every day and keep record for PCP. Management plan was discussed in detail with patient Education was provided.
[2017-04-15 16:56] VITALS: BP 121/92; PULSE 69; RESP 14; TEMP 98.4; O2SAT 97
== END 2017-04-15 17:13 | disposition home or self-care (01) | DRG 561 ==
LOC: TRCU 16:03
PROVIDERS: ADMIT Internal Medicine; ATTEND Internal Medicine
PROC: F07Z9FZ Gait Training/Functional Ambulation Treatment using Assistive, Adaptive, Supportive or Protective Equipment (ICD-10-PCS; principal; 2017-04-11)
PROC: F07M6ZZ Therapeutic Exercise Treatment of Musculoskeletal System - Whole Body (ICD-10-PCS; 2017-04-11)
PROC: F08Z2ZZ Grooming/Personal Hygiene Treatment (ICD-10-PCS; 2017-04-11)
PROC: F08Z1ZZ Dressing Techniques Treatment (ICD-10-PCS; 2017-04-11)
PROC: F08Z0ZZ Bathing/Showering Techniques Treatment (ICD-10-PCS; 2017-04-11)
DX: M48.56XD Collapsed vertebra, not elsewhere classified, lumbar region, subsequent encounter for fracture with routine healing (principal); G20 Parkinson's disease; E78.5 Hyperlipidemia, unspecified; I10 Essential (primary) hypertension; E78.00 Pure hypercholesterolemia, unspecified

== ENCOUNTER 2017-05-21 10:51 | Inpatient (IN) | payer MEDICARE, BC ==
[2017-05-21 11:49] LABS: BASO # 0.01 K/mm3 (0.0-2.0); BASO % 0.1 % (0.0-3.0); EOS # 0.1 (0.0-0.7); EOS % 0.7 % (1.5-5.0); GRAN % 76.7 % (50.0-68.0); HEMATOCRIT 39.7 % (36.0-48.0); LYMPH # 1.9 (1.2-3.4); LYMPH % 16.5 % (22.0-35.0); MEAN CELL VOLUME 90.8 fl (80.0-105.0); MEAN CORPUSCULAR HEMOGLOBIN 30.2 pg (25.0-35.0); MEAN CORPUSCULAR HGB CONC 33.2 g/dl (31.0-37.0); MEAN PLATELET VOLUME 9.6 fl (7.0-11.0); MONO # 0.7 (0.1-0.6); RED CELL DISTRIBUTION WIDTH 13.4 % (11.5-14.5); WHITE BLOOD COUNT 11.7 10^3/ul (4.5-11.0)
[2017-05-21 11:54] LABS: INR 1.08 (0.93-1.08)
--- NOTE | 2017-05-21 11:57 | ED PDOC ---
Arrival/HPI - History of Present Illness Time/Duration: 1-3 hours Symptom Onset: Sudden Symptom Course: Unchanged Activities at Onset: Rest, Light Context: Home <Carlos Manuel Matthews - Last Filed: 05/21/17 14:28> <Surjit Hart DO - Last Filed: 05/21/17 18:58> - General Chief Complaint: Weakness/Neurological Deficit Time Seen by Provider: 05/21/17 10:55 - History of Present Illness Narrative History of Present Illness (Text): 05/21/17 11:49 Mrs. Caldwell is an 87 year old AA female with a past medical history significant for Parkinson's Disease, HTN, HLD and chronic back pain who [place] [facility] [place] after she was found to be generally weak, leaning on her left side and unable to lift herself up from her bed. Patient was accompanied by her son, [id number] and niece who report that this AM at approximately 0915 they woke patient from her sleep at which point they noticed that patient was leaning on her left side and with difficulty lifting herself from her bed. Family also reports that once they assisted patient to her feet, she was unable to put her right foot into her slipper. Family notes that at 2030 last evening, patient was at her baseline health status with none of the previously mentioned symptoms present. Of note, at baseline patient is able to ambulate with some assistance on an occasional basis but has no difficulty getting out of bed or dressing herself. Family endorses left sided facial droop but denies any confusion, changes in behavior or slurred speech. Patient denies any fever, chills, headache, changes in her hearing/smell/vision, numbness/tingling/ weakness of her face or extremities, neck pain, neck stiffness, dysphagia, chest pain, palpitation, SOB, cough, abdominal pain, N/V/D/C, or any burning/ pain with urination. (Carlos Manuel Matthews) Past Medical History - Provider Review Nursing Documentation Reviewed: Yes - Travel History Have you recently traveled outside [place] w/in the past 3 mons?: No - Past History Past History: No Previous - Infectious Disease Hx of Infectious Diseases: None - Reproductive Menopause: Yes - Cardiac Hx Hypertension: Yes - Pulmonary Hx Respiratory Disorders: No - Neurological Hx Neurological Disorder: Yes Hx Parkinson's Disease: Yes - HEENT Hx HEENT Disorder: Yes (eyeglasses) Other/Comment: eye sx fatty tissue removed from both eyelids - Renal Hx Renal Disorder: No - Endocrine/Metabolic Hx Endocrine Disorders: No - Hematological/Oncological Hx Blood Disorders: No - Integumentary Hx Dermatological Disorder: No - Musculoskeletal/Rheumatological Hx Falls: No - Gastrointestinal Hx Gastrointestinal Disorders: No - Genitourinary/Gynecological Hx Genitourinary Disorders: No Hx Reproductive Disorders: No - Psychiatric Hx Psychophysiologic Disorder: No Hx Substance Use: No - Surgical History Other/Comment: eye surgeryfatty tissue removed from both eyelids - Anesthesia Hx Anesthesia Reactions: No <Carlos Manuel Matthews - Last Filed: 05/21/17 14:28> Family/Social History - Physician Review Nursing Documentation Reviewed: Yes Family/Social History: No Known Family HX Smoking Status: Never Smoked Hx Alcohol Use: No Hx Substance Use: No <Carlos Manuel Matthews - Last Filed: 05/21/17 14:28> Allergies/Home Meds <Carlos Manuel aMtthews - Last Filed: 05/21/17 14:28> <Surjit Hart DO - Last Filed: 05/21/17 18:58> Allergies/Adverse Reactions: Allergies No Known Allergies Allergy (Verified 05/21/17 11:09) Home Medications: Home Meds Medication Instructions Recorded Confirmed Carbidopa/Levodopa 50/200 CR 50 mg PO DAILY 10/08/15 05/21/17 [Sinemet CR] Simvastatin 20 mg PO DAILY 10/08/15 05/21/17 Aspirin 81 mg PO DAILY 04/06/17 05/21/17 Review of Systems - Physician Review All systems were reviewed & negative as marked: Yes - Review of Systems Constitutional: Normal. absent: Fevers, Night Sweats Eyes: Normal. absent: Vision Changes ENT: Normal. absent: Hearing Changes, Voice Changes Respiratory: Normal. absent: SOB Cardiovascular: Normal. absent: Chest Pain, Palpitations, Syncope Gastrointestinal: Normal. absent: Abdominal Pain, Constipation, Diarrhea, Nausea, Vomiting Genitourinary Female: Normal. absent: Dysuria Musculoskeletal: Normal. absent: Arthralgias, Back Pain, Neck Pain, Myalgias Skin: Normal. absent: Rash Neurological: Focal Weakness (R foot), Gait Changes (Unable to lift herself from bed), Facial Droop (L side). absent: Normal, Headache, Dizziness, Speech Changes, Seizure Endocrine: Normal Hemo/Lymphatic: Normal Psychiatric: Normal <Carlos Manuel Matthews - Last Filed: 05/21/17 14:28> Physical Exam Vital Signs Reviewed: Yes Temperature: Afebrile Blood Pressure: Hypertensive Pulse: Regular Respiratory Rate: Normal Appearance: Positive for: Well-Appearing, Non-Toxic, Comfortable Pain Distress: None Mental Status: Positive for: Alert and Oriented X 3 Finger Stick Blood Glucose: 122 - Systems Exam Head: Present: Atraumatic, Normocephalic. No: Tenderness, Contusion, Swelling, Ecchymosis, Abrasion, Laceration Pupils: Present: PERRL. No: Sluggish, Non-Reactive, Pinpoint Extroacular Muscles: Present: EOMI. No: Gaze Palsy, Entrapment Conjunctiva: Present: Normal. No: Injected, Icteric Mouth: Present: Moist Mucous Membranes. No: Drooling Pharnyx: Present: Normal. No: ERYTHEMA, EXUDATE, TONSILS ENLARGED, Uvular Deviation Nose (External): Present: Atraumatic Nose (Internal): Present: Normal Inspection Neck: Present: Normal Range of Motion, Trachea Midline. No: Meningeal Signs, MIDLINE TENDERNESS, Paraspinal Tenderness, JVD, Lymphadenopathy Respiratory/Chest: Present: Clear to Auscultation, Good Air Exchange. No: Respiratory Distress, Accessory Muscle Use Cardiovascular: Present: Regular Rate and Rhythm, Normal S1, S2, Peripheal Pulses Present. No: Murmurs Abdomen: Present: Normal Bowel Sounds. No: Tenderness, Distention, Peritoneal Signs Back: Present: Normal Inspection. No: CVA Tenderness, Midline Tenderness, Paraspinal Tenderness Upper Extremity: Present: NORMAL PULSES, Neurovascularly Intact, Capillary Refill < 2s, Other (Resting tremor of R hand). No: Normal Inspection, Cyanosis , Edema, Tenderness, Swelling, Erythema, Temperature Abnormalties, Deformity Lower Extremity: Present: Normal Inspection, NORMAL PULSES, Capillary Refill < 2 s. No: Edema, CALF TENDERNESS, Cyanosis, Aleksander's Sign, Tenderness, Swelling, Erythema, Deformity, Temperature Abnormalties, Neurovascularly Intact Neurological: Present: GCS=15, CN II-XII Intact, Speech Normal, Motor Func Grossly Intact, Normal Sensory Function. No: Memory Normal (Difficulty with orientation to place) Skin: Present: Warm, Dry, Normal Color. No: Rashes Lymphatic: No: Cervical Adenopathy Psychiatric: Present: Alert, Normal Insight, Normal Concentration. No: Oriented x 3 (Difficulty with orientation to place) <Carlos Manuel Matthews - Last Filed: 05/21/17 14:28> Vital Signs Temp Pulse Resp BP Pulse Ox 05/21/17 14:31 87 18 180/88 H 05/21/17 14:05 87 17 180/88 H 98 05/21/17 12:55 89 183/102 H 05/21/17 12:39 88 18 209/113 H 100 05/21/17 11:15 97 F L 81 17 191/100 H 100 Medical Decision Making - Lab Interpretations I have reviewed the lab results: Yes Interpretation: All labs normal - RAD Interpretation Obstetrics Technician: ED Physician, Radiologist - EKG Interpretation Interpreted by ED Physician: Yes Type: 12 lead EKG <ByronCarlos Manuel - Last Filed: 05/21/17 14:28> - Critical Care Critical Care Minutes: 60 minutes <Surjit Hart DO - Last Filed: 05/21/17 18:58> ED Course and Treatment: 05/21/17 12:05 Impression: 87 year old AA female with a past medical history significant for Parkinson's Disease, HTN, HLD and chronic back pain who [place] [facility] [place] after she was found to be generally weak, leaning on her left side and unable to lift herself up from her bed Plan: -CBC, CMP, Coags, UA, Troponin -EKG -Chest X-Ray -CT Head w/o contrast -Reassess and disposition Prior Visits: 03/2017: Patient seen and evaluated for back pain 09/2015: Patient seen and evaluated for TIA 05/21/17 13:[address] Floyd Estrada and his recommendations are to give patient full aspirin (325mg) and to send patient for Carotid Doppler US and Brain MRI. Dr. Abhishek Estrada to follow up with patient while admitted [place] [facility] 05/21/17 13:[address] Hernandez who is covering for patients PMD, Dr. Desouza. Dr. Hernandez stated that she be admitted under hospitalist team. Spoke to Dr. Nieves and he agreed to admit patient to tele with the previously mentioned workup recommended by Dr. Floyd Estrada. (Carlos Manuel Matthews) Patient Seen With Resident: In agreement with resident note which contains more details about the patient. Patient was seen and evaluated with resident. Came up with plan and treatment together. (Surjit Hart DO) - Lab Interpretations Lab Results: 05/21/17 11:12 05/21/17 11:12 Lab Results 05/21/17 11:12: PT 11.9, INR 1.08, APTT 34.0 05/21/17 11:12: WBC 11.7 H D, RBC 4.37, Hgb 13.2, Hct 39.7, MCV 90.8, MCH 30.2, MCHC 33.2, RDW 13.4, Plt Count 264, MPV 9.6, Gran % 76.7 H, Lymph % (Auto) 16.5 L, [place] % (Auto) 6.0, Eos % (Auto) 0.7 L, Baso % (Auto) 0.1, Gran # 9.00 H, Lymph # 1.9, Alpine # 0.7 H, Eos # 0.1, Baso # 0.01 05/21/17 11:12: Sodium 141, Potassium 4.0, Chloride 105, Carbon Dioxide 28, Anion Gap 12, BUN 20, Creatinine 0.9, Est GFR ( Amer) > 60, Est GFR (Non- Af Amer) 60, Random Glucose 107, Calcium 9.7, Total Bilirubin 0.8, AST 35, ALT 35, Alkaline Phosphatase 87, Troponin I 0.02 D, Total Protein 7.8, Albumin 4.2 , Globulin 3.6, Albumin/Globulin Ratio 1.2 - RAD Interpretation Radiology Orders: 05/21/17 11:14 HEAD W/O CONTRAST [CT] Stat 05/21/17 11:15 CHEST PORTABLE [RAD] Stat 05/21/17 13:29 BRAIN WITHOUT CONTRAST [MRI] Stat CAROTID & VERTEBRAL DUPLEX [US] Stat - EKG Interpretation EKG Interpretation (Text): 05/21/17 12:08 NSR, Normal Intervals, No ST-T segment changes, No T-Wave abnormalities (Carlos Manuel Matthews) - Medication Orders Current Medication Orders: Aspirin (Aspirin) 325 mg PO DAILY ELLE Atorvastatin Calcium (Lipitor) 20 mg PO DIN ELLE Carbidopa/Levodopa (Sinemet Cr) 1 tab PO DAILY ELLE Enoxaparin Sodium (Lovenox) 40 mg SC DAILY ELLE PRN Reason: Protocol Hydralazine HCl (Apresoline) 10 mg IVP Q6 PRN PRN Reason: Systolic Blood Pressure Losartan Potassium (Cozaar) 50 mg PO DAILY ELLE Pantoprazole Sodium (Protonix Inj) 40 mg IVP DAILY ELLE Discontinued Medications Aspirin (Aspirin) 325 mg PO STAT STA Stop: 05/21/17 13:19 Last Admin: 05/21/17 13:28 Dose: 325 mg Carbidopa/Levodopa (Sinemet Cr) 1 tab PO STAT STA Stop: 05/21/17 13:21 Last Admin: 05/21/17 13:32 Dose: 1 tab Losartan Potassium (Cozaar) 50 mg PO STAT STA Stop: 05/21/17 12:49 Last Admin: 05/21/17 12:55 Dose: 50 mg MAR Pulse and Blood Pressure Document 05/21/17 12:55 SE (Rec: 05/21/17 12:55 SE [id number]) Pulse Pulse Rate (60-90) 89 Blood Pressure Blood Pressure (100/60-150/90) 183/102 NIHSS Scale (Mcgrann) Time Performed: 11:30 - How Severe is the Stoke Baseline Level of Consciousness: 0=Alert LOC to Questions: 0=Both comments correct LOC to commands: 0=Obeys both correctly Best Gaze: 0=Normal Visual: 0=No visual loss Facial: 1=Minor asymmetry Motor Arm - Left: 0=No drift Motor Arm - Right: 1=Drift noted before 10 sec Motor Leg - Left: 1=Drift before 5 sec Motor Leg - Right: 1=Drift before 5 sec Limb Ataxia: 1=Present Upper or Lower Sensory: 0=Normal Best Language: 0=No aphasia Dysarthia: 0=Normal articulation Extinction & Inattention (Neglect): 0=Normal, no object Score: 5 Risk Level: Mod Stroke Risk <Carlos Manuel Matthews - Last Filed: 05/21/17 14:28> rTPA Inclusion/Exclusion - Refusal of Treatment Patient Refused Treatment: No - Inclusion Criteria for Altepase Patient is 18 years or Older: Yes The Clinical Diagnosis of Ischemic Stroke That is Causing a Potentially Disabling Neurological Deficit: No Time of Onset is Well Established to be Less Than 270 Minute Before Treatment Would Begin: No Risk/Benefit Discussed With Patient/Family Member Present: Yes <Carlos Manuel Matthews - Last Filed: 05/21/17 14:28> - Exclusion Criteria for Altepase Uncontrolled Hypertension at Time of Treatment (Systolic BP above 185 or Diastolic BP above 110 mmHg): No Less Than 3 Months Had a Recent: Intracranial (DENIES) History of: Intracranial hemorrhage (DENIES) Active Internal Bleeding: No Known Bleeding Diathesis Including but Not Limited to: Platelets Below 100,000/ mm,PTT Above 40 sec After Heparin Use, Current Use of Oral Anitcoagulant With INR Greater Than 1.7 or PT Greater Than 15 secs: No Evidence of an Intracranial Hemorrhage: No Evidence of Major Acute Infarct With Signs Greater Than 1/3 MCA Territory: No Suspicion of Subarachnoid Hemorrhage on Pretreatment Evaluation Even if CT Head Negative For Hemorrhage: No <Surjit Hart DO - Last Filed: 05/21/17 18:58> - PA / OPERATIONS LIEUTENANT / Resident Statement JONH has reviewed & agrees with the documentation as recorded. JONH has examined the patient and agrees with the treatment plan. <Surjit Hart DO - Last Filed: 05/21/17 18:58> Disposition/Present on Arrival - Present on Arrival Any Indicators Present on Arrival: No History of DVT/PE: No History of Uncontrolled Diabetes: No Urinary Catheter: No History of Decub. Ulcer: No History Surgical Site Infection Following: None - Disposition Have Diagnosis and Disposition been Completed?: Yes Disposition Time: 13:46 Patient Plan: Admission, Telemetry <Carlos Manuel Matthews - Last Filed: 05/21/17 14:28> <Surjit Hart DO - Last Filed: 05/21/17 18:58> - Disposition Diagnosis: Stroke-like symptoms Disposition: HOSPITALIZED Patient Problems: Current Active Problems Problem Status Onset Stroke-like symptoms Acute Condition: STABLE
[2017-05-21 12:05] LABS: ALB/GLOB RATIO 1.2 (1.1-1.8); ALKALINE PHOSPHATASE 87 U/L (38-126); ALT/SGPT 35 U/L (7-56); AST/SGOT 35 U/L (14-36); BILIRUBIN,TOTAL 0.8 mg/dL (0.2-1.3); BLOOD UREA NITROGEN 20 mg/dL (7-21); CALCIUM 9.7 mg/dL (8.4-10.5); CARBON DIOXIDE 28 mmol/L (21-33); CHLORIDE 105 mmol/L (98-107); GFR AFRICAN-AMERICAN > 60; GLUCOSE,RANDOM 107 mg/dL (70-110); SODIUM 141 mmol/L (132-148); TOTAL PROTEIN 7.8 g/dL (5.8-8.3)
[2017-05-21 12:15] LABS: TROPONIN I 0.02 ng/mL
--- NOTE | 2017-05-21 12:22 | RAD ---
HISTORY: weakness COMPARISON: 04/07/2017 FINDINGS: LUNGS: No active pulmonary disease. PLEURA: No significant pleural effusion identified, no pneumothorax apparent. CARDIOVASCULAR: Normal. OSSEOUS STRUCTURES: No significant abnormalities. VISUALIZED UPPER ABDOMEN: Normal. OTHER FINDINGS: None. IMPRESSION: No active disease.
--- NOTE | 2017-05-21 12:45 | CT ---
PROCEDURE: CT HEAD WITHOUT CONTRAST. HISTORY: left sided weakness-last known well was last night COMPARISON: None available. TECHNIQUE: Axial computed tomography images were obtained through the head/brain without intravenous contrast. Radiation dose: Total exam DLP = 792 mGy-cm. This CT exam was performed using one or more of the following dose reduction techniques: Automated exposure control, adjustment of the mA and/or kV according to patient size, and/or use of iterative reconstruction technique. FINDINGS: HEMORRHAGE: No intracranial hemorrhage. BRAIN: No mass effect or edema. There is atrophy of the left anterior temporal lobe. Chronic microvascular changes are seen. No acute findings VENTRICLES: Unremarkable. No hydrocephalus. CALVARIUM: Unremarkable. PARANASAL SINUSES: Unremarkable as visualized. No significant inflammatory changes. MASTOID AIR CELLS: Unremarkable as visualized. No inflammatory changes. OTHER FINDINGS: None. IMPRESSION: No acute intracranial findings
[2017-05-21] MEDS ORDERED: Carbidopa/Levodopa 50/200 CR PO STA (13:20)
[2017-05-21 14:12] LABS: URINE BILIRUBIN NEGATIVE (NEGATIVE); URINE BLOOD MODERATE (NEGATIVE); URINE GLUCOSE (UA) NEGATIVE (NEGATIVE); URINE KETONE NEGATIVE (NEGATIVE); URINE LEUKOCYTE ESTERASE NEGATIVE Leu/uL (NEGATIVE); URINE PROTEIN TRACE mg/dL (<30 mg/dL); URINE UROBILINOGEN 0.2 E.U./dL (<1 E.U./dL)
[2017-05-21 14:15] LABS: URINE APPEARANCE CLEAR (CLEAR); URINE COLOR YELLOW (YELLOW)
[2017-05-21 14:21] LABS: URINE BACTERIA FEW (NEG); URINE EPITHELIAL CELLS 0 - 2 /hpf (0-5); URINE RBC 15 - 20 /hpf (0-2); URINE WBC 0 - 2 /hpf (0-6)
[2017-05-21 14:36] VITALS: BMI 27.2
--- NOTE | 2017-05-21 14:52 | CP.PCM.HP ---
<Bob Amin - Last Filed: 05/21/17 15:15> History of Present Illness - History of Present Illness History of Present Illness: H&P Hospitalist Service - Lisa Amin PGY2 HPI: Patient is a 87 year-old female with past medical history of Parkinson's, hypertension, hyperlipidemia, TIA and chronic low back pain that presented to [facility] accompanied by family with complaint of generalized weakness. Family reported that this morning they found Ms. Caldwell laying in bed slumped over to her left side and unable to get out of bed. They reported assisting her to her feet and she was able to ambulate with assistance however they noted she had a shuffling gait and left-sided facial droop. Family reported that the night prior she had no issues or complaints and is normally ambulates independently with occasional assistance and is able to dress and feed herself. Patient denied chest pain, palpitations, SOB, abdominal pain, nausea, vomiting, fever, chills, cough, headaches, blurry vision, focal weakness , numbness, tingling. 12point ROS as per HPI above otherwise negative PMHx: Parkinsons, HTN, HLD, TIA, Chronic low back pain PSHx: Eyelid surgery Allergies: NKDA Family Hx: Reviewed, non-contributory Social Hx: Denied tobacco, alcohol and illicit drug use; Lives with good support system with family nearby PMD: Dr. Desouza Present on Admission - Present on Admission Any Indicators Present on Admission: No Past Patient History - Infectious Disease Hx of Infectious Diseases: None - Past Social History Smoking Status: Never Smoked - CARDIAC Hx Hypertension: Yes - PULMONARY Hx Respiratory Disorders: No - NEUROLOGICAL Hx Neurological Disorder: Yes Hx Parkinson's Disease: Yes - HEENT Hx HEENT Problems: Yes (eyeglasses) Other/Comment: eye sx fatty tissue removed from both eyelids - RENAL Hx Chronic Kidney Disease: No - ENDOCRINE/METABOLIC Hx Endocrine Disorders: No - HEMATOLOGICAL/ONCOLOGICAL Hx Blood Disorders: No - INTEGUMENTARY Hx Dermatological Problems: No - MUSCULOSKELETAL/RHEUMATOLOGICAL Hx Falls: No - GASTROINTESTINAL Hx Gastrointestinal Disorders: No - GENITOURINARY/GYNECOLOGICAL Hx Genitourinary Disorders: No - PSYCHIATRIC Hx Psychophysiologic Disorder: No - SURGICAL HISTORY Other/Comment: eye surgeryfatty tissue removed from both eyelids - ANESTHESIA Hx Anesthesia Reactions: No Meds Allergies/Adverse Reactions: Allergies Allergy/AdvReac Type Severity Reaction Status Date / Time No Known Allergies Allergy Verified 05/21/17 11:09 Physical Exam - Constitutional Appears: Non-toxic, No Acute Distress - Head Exam Head Exam: ATRAUMATIC, NORMAL INSPECTION, NORMOCEPHALIC - Eye Exam Eye Exam: EOMI, PERRL - ENT Exam ENT Exam: Mucous Membranes Moist - Neck Exam Neck exam: Positive for: Normal Inspection. Negative for: Lymphadenopathy, Tenderness, Thyromegaly - Respiratory Exam Respiratory Exam: Clear to Auscultation Bilateral. absent: Rales, Rhonchi, Wheezes - Cardiovascular Exam Cardiovascular Exam: RRR, +S1, +S2. absent: Gallop, JVD, Rubs, Systolic Murmur - GI/Abdominal Exam GI & Abdominal Exam: Normal Bowel Sounds, Soft. absent: Distended, Firm, Guarding, Rigid, Tenderness - Extremities Exam Extremities exam: Positive for: normal inspection. Negative for: calf tenderness, pedal edema, tenderness - Neurological Exam Neurological exam: Alert, CN II-XII Intact, Oriented x3 Additional comments: awake, alert, oriented; answering questions appropriately CN2-12 grossly intact moves all extremities spontaneously no visible facial droop sensory intact throughout babinski downward going bilaterally gait deferred - Psychiatric Exam Psychiatric exam: Normal Affect, Normal Mood - Skin Skin Exam: Dry, Intact, Normal Color, Warm Results - Vital Signs Recent Vital Signs: Last Vital Signs Temp 97 F L 05/21/17 11:15 Pulse 87 05/21/17 14:31 Resp 18 05/21/17 14:31 BP 180/88 H 05/21/17 14:31 Pulse Ox 98 05/21/17 14:05 - Labs Result Diagrams: 05/21/17 11:12 05/21/17 11:12 Labs: Laboratory Results - last 24 hr 05/21/17 14:00 Urine Color Yellow Urine Appearance Clear Urine pH 6.0 Ur Specific [place] >= 1.030 Urine Protein Trace H Urine Glucose (UA) Negative Urine Ketones Negative Urine Blood Moderate H Urine Nitrate Negative Urine Bilirubin Negative Urine Urobilinogen 0.2 Ur Leukocyte Esterase Negative Urine RBC 15 - 20 Urine WBC 0 - 2 Ur Epithelial Cells 0 - 2 Urine Bacteria Few Assessment & Plan - Assessment and Plan (Free Text) Plan: 87 year-old female with history of Parkinson's, HTN, HLD and TIA presents with complaints of generalized weakness and left-sided facial droop 1. Rule out CVA vs TIA -CT Head reviewed; no acute intracranial abnormalities -CXR reviewed; no active disease -EKG reviewed; normal sinus rhythm with no acute ST-T wave changes -Brain MRI pending -Carotid doppler pending -Lipid panel and A1C pending -Patient given full dose aspirin in the ED, continue with ASA 325mg PO daily -Heart healthy diet -Neurochecks -Fall precautions -Physical therapy/Occupational therapy evaluation 2. Hypertension -Continue with losartan 50mg PO daily -Continue with hydralazine PRN with BP parameters 3. Hyperlipidemia -Continue with Lipitor 20mg PO daily pending lipid panel 4. Parkinson's -Resumed patient's home sinemet 5. GI/DVT Prophylaxis -Protonix/Lovenox Patient seen and case discussed/reviewed with attending physician, Dr. Nieves <Artemio Nieves - Last Filed: 05/21/17 15:41> Results - Vital Signs Recent Vital Signs: Last Vital Signs Temp 97 F L 05/21/17 11:15 Pulse 87 05/21/17 14:31 Resp 18 05/21/17 14:31 BP 180/88 H 05/21/17 14:31 Pulse Ox 98 05/21/17 14:05 - Labs Result Diagrams: 05/21/17 11:12 05/21/17 11:12 Labs: Laboratory Results - last 24 hr 05/21/17 05/21/17 14:00 14:35 Triglycerides 61 Cholesterol 202 H LDL Cholesterol Direct 71 HDL Cholesterol 96 H Urine Color Yellow Urine Appearance Clear Urine pH 6.0 Ur Specific [place] >= 1.030 Urine Protein Trace H Urine Glucose (UA) Negative Urine Ketones Negative Urine Blood Moderate H Urine Nitrate Negative Urine Bilirubin Negative Urine Urobilinogen 0.2 Ur Leukocyte Esterase Negative Urine RBC 15 - 20 Urine WBC 0 - 2 Ur Epithelial Cells 0 - 2 Urine Bacteria Few Attending/Attestation - Attestation I have personally seen and examined this patient.: Yes I have fully participated in the care of the patient.: Yes I have reviewed all pertinent clinical information: Yes Notes (Text): 05/21/17 15:38 87 year old female with past medical history of Parkinson's, hypertension, dyslipidemia and TIA who presents today with complaint of weakness and left sided facial droop. Admitted to rule out TIA/CVA. CT head was negative for acute findings. Carotid dopplers and MRI brain are ordered. PT evaluation and neurology evaluation is requested. Patient is already on aspirin and statin, doses will be increased. She is on losartan for hypertension; will add prn hydralazine. Family is at bedside and questions were answered. Artemio Nieves MD Hospitalist.
--- NOTE | 2017-05-21 15:10 | MRI ---
PROCEDURE: MRI BRAIN WITHOUT CONTRAST HISTORY: TIA COMPARISON: 10/09/2015 MRI of the brain TECHNIQUE: Multiplanar, multisequence MR images of the brain were obtained without intravenous contrast enhancement. FINDINGS: HEMORRHAGE: None DWI: No evidence of an acute or early subacute infarction. BRAIN PARENCHYMA: No mass effect or edema. There is focal atrophy in the left anterior temporal lobe. This is unchanged. Chronic microvascular changes are seen in the periventricular white matter. VENTRICLES: Unremarkable. No hydrocephalus. CRANIUM: Unremarkable. ORBITS: Grossly unremarkable. PARANASAL SINUSES/MASTOIDS: Clear VASCULAR SYSTEM: Skull base flow voids intact. OTHER FINDINGS: None. IMPRESSION: No acute findings
[2017-05-21 15:12] LABS: CHOLESTEROL 202 mg/dL (130-200)
--- NOTE | 2017-05-21 20:56 | CON ---
DATE: HISTORY OF PRESENT ILLNESS: This is an 87-year-old female with a past medical history of hypertension, Parkinson, hyperlipidemia, TIA and chronic back pain, brought to [facility] by a family member and found the patient was lying in bed, slept over to her left side and unable to get out of the bed and the patient also had a difficulty ambulating and left facial droop, brought to the [facility], MRI of the head was done which was negative for any acute infarct or bleed. PAST MEDICAL HISTORY: Parkinson, hypertension, TIA, chronic low back pain. PAST SURGICAL HISTORY: Eyelid surgery. ALLERGIES: NO KNOWN DRUG ALLERGIES. SOCIAL HISTORY: Does not smoke and does not drink. PHYSICAL EXAMINATION VITAL SIGNS: Blood pressure 180/88. HEENT: Normocephalic, atraumatic. NECK: Supple. NEUROLOGIC: Cranial nerve II-XII were tested. Pupils reactive. Masked face. Mild rigidity. Spontaneous movement of the extremities noted. Deep tendon reflexes are 1+. Both plantaris are downgoing. Sensory appears intact. Cerebellar and gait deferred. LABORATORY DATA: WBC 11.7, hemoglobin 13.2, hematocrit 39.7, platelets 264. Sodium 141, potassium 4, chloride 105, CO2 of 26, glucose 107, BUN 20, creatinine 0.9, and MRI of the head was done which was reported negative. Continue present management. The patient is on Sinemet. We will follow up. Dudley Estrada MD
[2017-05-22 06:25] LABS: BASO # 0.01 K/mm3 (0.0-2.0); BASO % 0.1 % (0.0-3.0); EOS # 0.2 (0.0-0.7); EOS % 2.7 % (1.5-5.0); GRAN # 4.64 (1.4-6.5); GRAN % 57.9 % (50.0-68.0); HEMATOCRIT 34.8 % (36.0-48.0); LYMPH # 2.5 (1.2-3.4); LYMPH % 31.3 % (22.0-35.0); MEAN CELL VOLUME 92.1 fl (80.0-105.0); MEAN CORPUSCULAR HEMOGLOBIN 30.4 pg (25.0-35.0); MEAN PLATELET VOLUME 9.6 fl (7.0-11.0); MONO # 0.6 (0.1-0.6); RED CELL DISTRIBUTION WIDTH 14.1 % (11.5-14.5)
[2017-05-22 07:58] LABS: ALB/GLOB RATIO 1.2 (1.1-1.8); ALKALINE PHOSPHATASE 68 U/L (38-126); ALT/SGPT 30 U/L (7-56); AST/SGOT 30 U/L (14-36); BILIRUBIN,TOTAL 0.7 mg/dL (0.2-1.3); BLOOD UREA NITROGEN 22 mg/dL (7-21); CALCIUM 9.2 mg/dL (8.4-10.5); CARBON DIOXIDE 28 mmol/L (21-33); CHLORIDE 107 mmol/L (98-107); GFR AFRICAN-AMERICAN > 60; GLUCOSE,RANDOM 87 mg/dL (70-110); POTASSIUM 4.3 mmol/L (3.6-5.0); SODIUM 140 mmol/L (132-148); TOTAL PROTEIN 6.3 g/dL (5.8-8.3)
[2017-05-22] MEDS: Dextrose 5%/0.9% NS 1,000 ML IV SCH (08:00)
[2017-05-22 08:24] LABS: ARTERIAL BLOOD GAS HCO3 28.4 mmol/L (21-28); ARTERIAL BLOOD GAS PH 7.46 (7.35-7.45)
--- NOTE | 2017-05-22 08:47 | CT ---
PROCEDURE: CT HEAD WITHOUT CONTRAST. HISTORY: RRP COMPARISON: 05/21/2017. TECHNIQUE: Axial computed tomography images were obtained through the head/brain without intravenous contrast. Radiation dose: Total exam DLP = 681.32 mGy-cm. This CT exam was performed using one or more of the following dose reduction techniques: Automated exposure control, adjustment of the mA and/or kV according to patient size, and/or use of iterative reconstruction technique. FINDINGS: HEMORRHAGE: No intracranial hemorrhage. BRAIN: Again seen are mild chronic microangiopathic changes. There is cystic encephalomalacia in the left anterior temporal lobe and ex vacuo dilatation of the left frontal horn. There is no mass, mass effect or abnormal extra-axial fluid collection. VENTRICLES: There is mild age-related global parenchymal volume loss and proportionate enlargement of the ventricles and cortical sulci. CALVARIUM: The skull base and calvarium are normal. PARANASAL SINUSES: Predominantly clear. MASTOID AIR CELLS: Predominantly clear. OTHER FINDINGS: None. IMPRESSION: No acute intracranial abnormality. Left anterior temporal cystic encephalomalacia, sequela of remote infarction. Mild chronic microangiopathic changes and mild age-related global parenchymal volume loss.
--- NOTE | 2017-05-22 09:49 | CARD ---
APPROVED REPORT EKG Measurement Heart [id number] <Conclusion> Normal sinus rhythm Mild NSSTW changes No change
[2017-05-22] MEDS ORDERED: Enoxaparin 30 mg Syringe SC SCH (10:00)
--- NOTE | 2017-05-22 10:05 | CP.PCM.PN ---
<Aj Thomson - Last Filed: 05/22/17 11:57> Subjective - Date & Time of Evaluation Date of Evaluation: 05/22/17 Time of Evaluation: 09:15 - Subjective Subjective: Subjective: Patient seen and examined at bedside. Resting comfortably in bed. [employer] was called on patient this AM for AMS. Patient was taken to CT. CT read showed no acute intracranial abnormality, left anterior temporal cystic encephalomalacia, sequela of remote infarction,and mild chronic microangiopathic changes and mild age-related global parenchymal volume loss. Patient states that her cognition has improved relative to baseline. Offers no new complaints at this time. As per patients daughter in law, Melody Caldwell, the patient is back at her baseline. Denies fever, chills, chest pain, shortness of breath, abdominal pain , nausea, vomiting, diarrhea, constipation, and urinary symptoms. Physical Examination: - Constitutional Appears: Non-toxic, No Acute Distress - Head Exam Head Exam: ATRAUMATIC, NORMAL INSPECTION, NORMOCEPHALIC - Eye Exam Eye Exam: EOMI, PERRL - ENT Exam ENT Exam: Mucous Membranes Moist - Neck Exam Neck exam: Positive for: Normal Inspection. Negative for: Lymphadenopathy, Tenderness, Thyromegaly - Respiratory Exam Respiratory Exam: Clear to Auscultation Bilateral. absent: Rales, Rhonchi, Wheezes - Cardiovascular Exam Cardiovascular Exam: RRR, +S1, +S2. absent: Gallop, JVD, Rubs, Systolic Murmur - GI/Abdominal Exam GI & Abdominal Exam: Normal Bowel Sounds, Soft. absent: Distended, Firm, Guarding, Rigid, Tenderness - Extremities Exam Extremities exam: Positive for: normal inspection. Negative for: calf tenderness, pedal edema, tenderness - Neurological Exam Neurological exam: Patient is awake, alert, aao x [address], responds to verbal stimuli, answers questions appropriately, follows commands, and moves extremities spontaneously, CN II-XII grossly intact, no visible facial droop, sensory intact throughout - Psychiatric Exam Psychiatric exam: Normal Affect, Normal Mood - Skin Skin Exam: Dry, Intact, Normal Color, Warm Assessment and Plan: Patient is a 87 year-old female with a past medical history of Parkinson's disease, HTN, HLD and TIA who is admitted for evaluation and treatment of generalized weakness and left-sided facial droop Altered Mental Status - CT Head reviewed 05/17/17- no acute intracranial abnormalities - CXR reviewed; no active disease - Brain MRI- no acute findings - Brain MRA pending - Carotid doppler pending - Lipid panel reviewed- elevated CHL and high HDL - continue with ASA 325mg PO daily - Heart healthy diet - Neurochecks - Fall precautions - Physical therapy/Occupational therapy evaluation- appreciate recommendations - neurology consulted- appreciate recommendations Hypertension - BPs trended, reviewed, and appreciated, will continue to monitor closely - Continue with losartan 50mg PO daily - Continue with hydralazine PRN with BP parameters Hyperlipidemia - Continue with Lipitor 20mg PO Parkinson's - c/w sinemet GI/DVT Prophylaxis - Protonix - Lovenox Deconditioning - physical therapy consulted- appreciate recommendations Patient seen, case discussed with, and plan approved by attending physician, Dr. Zuniga. Objective - Vital Signs/Intake and Output Vital Signs (last 24 hours): Temp Pulse Resp BP Pulse Ox 98.2 F 78 18 130/73 96 05/22/17 06:00 05/22/17 06:00 05/22/17 06:00 05/22/17 06:00 05/22/17 06:00 Intake and Output: 05/22/17 05/22/17 06:59 18:59 Intake Total 0 Output Total 0 Balance 0 - Medications Medications: Current Medications Aspirin (Aspirin) 325 mg PO DAILY [facility] Atorvastatin Calcium (Lipitor) 20 mg PO DIN [facility] Carbidopa/Levodopa (Sinemet Cr) 1 tab PO DAILY [facility] Enoxaparin Sodium (Lovenox) 40 mg SC DAILY [facility] PRN Reason: Protocol Hydralazine HCl (Apresoline) 10 mg IVP Q6 PRN PRN Reason: Systolic Blood Pressure Dextrose/Sodium Chloride (Dextrose 5%/0.9% Ns 1000 Ml) 1,000 mls @ 75 mls/hr IV .[id number] [facility] Losartan Potassium (Cozaar) 50 mg PO DAILY [facility] Pantoprazole Sodium (Protonix Inj) 40 mg IVP DAILY [facility] - Labs Labs: 05/22/17 05:30 05/22/17 05:30 PT 11.9 SECONDS (9.4-12.5) 05/21/17 11:12 INR 1.08 (0.93-1.08) 05/21/17 11:12 APTT 34.0 Seconds (25.1-36.5) 05/21/17 11:12 <Aldair Zuniga - Last Filed: 05/22/17 16:48> Objective - Vital Signs/Intake and Output Vital Signs (last 24 hours): Temp Pulse Resp BP Pulse Ox 97.9 F 64 19 135/65 96 05/22/17 12:00 05/22/17 15:33 05/22/17 12:00 05/22/17 15:33 05/22/17 06:00 Intake and Output: 05/22/17 05/22/17 06:59 18:59 Intake Total 0 Output Total 0 Balance 0 - Medications Medications: Current Medications Aspirin (Aspirin) 325 mg PO DAILY [facility] Last Admin: 05/22/17 12:28 Dose: 325 mg Atorvastatin Calcium (Lipitor) 20 mg PO DIN [facility] Carbidopa/Levodopa (Sinemet Cr) 1 tab PO DAILY [facility] Last Admin: 05/22/17 12:28 Dose: 1 tab Enoxaparin Sodium (Lovenox) 40 mg SC DAILY [facility] PRN Reason: Protocol Last Admin: 05/22/17 12:35 Dose: 40 mg Hydralazine HCl (Apresoline) 10 mg IVP Q6 PRN PRN Reason: Systolic Blood Pressure Dextrose/Sodium Chloride (Dextrose 5%/0.9% Ns 1000 Ml) 1,000 mls @ 75 mls/hr IV .[id number] [facility] Last Admin: 05/22/17 08:00 Dose: 75 mls/hr Losartan Potassium (Cozaar) 50 mg PO DAILY [facility] Last Admin: 05/22/17 12:29 Dose: 50 mg Pantoprazole Sodium (Protonix Inj) 40 mg IVP DAILY [facility] Last Admin: 05/22/17 12:33 Dose: 40 mg - Labs Labs: 05/22/17 05:30 05/22/17 05:30 PT 11.9 SECONDS (9.4-12.5) 05/21/17 11:12 INR 1.08 (0.93-1.08) 05/21/17 11:12 APTT 34.0 Seconds (25.1-36.5) 05/21/17 11:12 Attending/Attestation - Attestation I have personally seen and examined this patient.: Yes I have fully participated in the care of the patient.: Yes I have reviewed all pertinent clinical information, including history, physical exam and plan: Yes Notes (Text): 05/22/17 16:39 Attending note; Patient seen and examined with resident this morning for rapid response. Patient had an episode of unresponsiveness. Vitals stable. Lab work reviewed. Stat CT scan showed no acute infarct. 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 Chronic microangiopathic changes with global volume loss noted. MRI and MRA is did not show any acute event. Case discussed with neurologist Dr. Estrada in detail. Parkinson's with gait instability/and dementia; continue Sinemet. Physical therapy evaluation requested. Possible subacute rehabilitation placement. case management social worker evaluation appreciated for discharge planning. The diagnosis and treatment plan discussed with patient's son, [id number] in detail. Upon discharge the patient will follow-up with PMD DR. Desouza. 05/22/17 16:48
--- NOTE | 2017-05-22 10:25 | CP.PCM.CON ---
<Queenie Ansari - Last Filed: 05/22/17 10:11> History of Present Illness - History of Present Illness History of Present Illness: Patient was seen at bedside with her daughter in attendance. She had an episode of unresponsiveness this AM and is lethargic and disoriented. She is able to recall the year and her name, but not where she is, the date, or who the president is. Patient has no history of psychiatric difficulties or ever being on any psychiatric medication. She denies any current psychiatric symptoms. She has been diagnosed in the past with Alzheimer's and has been living independently with almost constant family support. Daughter concurs that her mother has been doing well and does not have any need for psychiatric intervention at this time. Will sign off on this patient, please call if there are any further needs. Past Patient History - Infectious Disease Hx of Infectious Diseases: None - Past Social History Smoking Status: Never Smoked - CARDIAC Hx Hypertension: Yes - PULMONARY Hx Respiratory Disorders: No - NEUROLOGICAL Hx Neurological Disorder: Yes Hx Parkinson's Disease: Yes - HEENT Hx HEENT Problems: Yes (eyeglasses) Other/Comment: eye sx fatty tissue removed from both eyelids - RENAL Hx Chronic Kidney Disease: No - ENDOCRINE/METABOLIC Hx Endocrine Disorders: No - HEMATOLOGICAL/ONCOLOGICAL Hx Blood Disorders: No - INTEGUMENTARY Hx Dermatological Problems: No - MUSCULOSKELETAL/RHEUMATOLOGICAL Hx Falls: No - GASTROINTESTINAL Hx Gastrointestinal Disorders: No - GENITOURINARY/GYNECOLOGICAL Hx Genitourinary Disorders: No - PSYCHIATRIC Hx Psychophysiologic Disorder: No - SURGICAL HISTORY Other/Comment: eye surgeryfatty tissue removed from both eyelids - ANESTHESIA Hx Anesthesia Reactions: No Meds Allergies/Adverse Reactions: Allergies Allergy/AdvReac Type Severity Reaction Status Date / Time No Known Allergies Allergy Verified 05/21/17 11:09 - Medications Medications: Current Medications Aspirin (Aspirin) 325 mg PO DAILY [facility] Atorvastatin Calcium (Lipitor) 20 mg PO DIN [facility] Carbidopa/Levodopa (Sinemet Cr) 1 tab PO DAILY [facility] Enoxaparin Sodium (Lovenox) 40 mg SC DAILY [facility] PRN Reason: Protocol Hydralazine HCl (Apresoline) 10 mg IVP Q6 PRN PRN Reason: Systolic Blood Pressure Dextrose/Sodium Chloride (Dextrose 5%/0.9% Ns 1000 Ml) 1,000 mls @ 75 mls/hr IV .[id number] [facility] Losartan Potassium (Cozaar) 50 mg PO DAILY [facility] Pantoprazole Sodium (Protonix Inj) 40 mg IVP DAILY [facility] Results - Vital Signs Recent Vital Signs: Last Vital Signs Temp 98.2 F 05/22/17 06:00 Pulse 78 05/22/17 06:00 Resp 18 05/22/17 06:00 BP 130/73 05/22/17 06:00 Pulse Ox 96 05/22/17 06:00 - Labs Result Diagrams: 05/22/17 05:30 05/22/17 05:30 Labs: Laboratory Results - last 24 hr 05/21/17 05/21/17 05/22/17 14:00 14:35 05:30 WBC 8.0 D RBC 3.78 Hgb 11.5 L Hct 34.8 L MCV 92.1 MCH 30.4 MCHC 33.0 RDW 14.1 Plt Count 263 MPV 9.6 Gran % 57.9 Lymph % (Auto) 31.3 [place] % (Auto) 8.0 H Eos % (Auto) 2.7 Baso % (Auto) 0.1 Gran # 4.64 Lymph # 2.5 [place] # 0.6 Eos # 0.2 Baso # 0.01 pCO2 pO2 HCO3 ABG pH ABG Total CO2 ABG O2 Saturation ABG Base Excess ABG Potassium Glucose Lactate FiO2 Sodium Potassium Chloride Carbon Dioxide Anion Gap BUN Creatinine Est GFR ( Amer) Est GFR (Non-Af Amer) Random Glucose Calcium Total Bilirubin AST ALT Alkaline Phosphatase Total Protein Albumin Globulin Albumin/Globulin Ratio Triglycerides 61 Cholesterol 202 H LDL Cholesterol Direct 71 HDL Cholesterol 96 H Arterial Blood Potassium Urine Color Yellow Urine Appearance Clear Urine pH 6.0 Ur Specific [place] >= 1.030 Urine Protein Trace H Urine Glucose (UA) Negative Urine Ketones Negative Urine Blood Moderate H Urine Nitrate Negative Urine Bilirubin Negative Urine Urobilinogen 0.2 Ur Leukocyte Esterase Negative Urine RBC 15 - 20 Urine WBC 0 - 2 Ur Epithelial Cells 0 - 2 Urine Bacteria Few 05/22/17 05/22/17 05:30 08:20 WBC RBC Hgb Hct MCV MCH MCHC RDW Plt Count MPV Gran % Lymph % (Auto) [place] % (Auto) Eos % (Auto) Baso % (Auto) Gran # Lymph # [place] # Eos # Baso # pCO2 40 pO2 100.0 HCO3 28.4 H ABG pH 7.46 H ABG Total CO2 29.6 H ABG O2 Saturation 98.6 H ABG Base Excess 4.2 H ABG Potassium 3.7 Glucose 96 Lactate 0.9 FiO2 28.0 Sodium 140 141.0 Potassium 4.3 Chloride 107 109.0 H Carbon Dioxide 28 Anion Gap 10 BUN 22 H Creatinine 0.9 Est GFR ( Amer) > 60 Est GFR (Non-Af Amer) 60 Random Glucose 87 Calcium 9.2 Total Bilirubin 0.7 AST 30 ALT 30 Alkaline Phosphatase 68 Total Protein 6.3 Albumin 3.4 Globulin 2.9 Albumin/Globulin Ratio 1.2 Triglycerides Cholesterol LDL Cholesterol Direct HDL Cholesterol Arterial Blood Potassium 3.7 Urine Color Urine Appearance Urine pH Ur Specific [place] Urine Protein Urine Glucose (UA) Urine Ketones Urine Blood Urine Nitrate Urine Bilirubin Urine Urobilinogen Ur Leukocyte Esterase Urine RBC Urine WBC Ur Epithelial Cells Urine Bacteria <Symone Castro - Last Filed: 05/23/17 09:17> History of Present Illness - History of Present Illness History of Present Illness: [employer]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 pt is slowly improving there is no agitation/aggression pt's family does not want psychiatric services at this time. Temp Pulse Resp BP Pulse Ox 98.5 F 77 16 174/86 H 95 05/23/17 06:00 05/23/17 06:00 05/23/17 06:00 05/23/17 06:00 05/23/17 06:00 05/23/17 06:00 05/23/17 06:00 Lab Results 05/23/17 06:00: Sodium 141, Potassium 3.9, Chloride 108 H, Carbon Dioxide 26, Anion Gap 11, BUN 19, Creatinine 1.0, Est GFR ( Amer) > 60, Est GFR (Non- Af Amer) 53, Random Glucose 127 H, Calcium 8.5, Total Bilirubin 0.4, AST 31, ALT 39, Alkaline Phosphatase 59, Total Protein 6.5, Albumin 3.3, Globulin 3.2, Albumin/Globulin Ratio 1.0 L 05/23/17 06:00: WBC 9.3, RBC 3.80, Hgb 11.3 L, Hct 34.9 L, MCV 91.8, MCH 29.7, MCHC 32.4, RDW 13.9, Plt Count 238, MPV 9.7, Gran % 65.4, Lymph % (Auto) 24.5, [place] % (Auto) 6.8 H, Eos % (Auto) 3.1, Baso % (Auto) 0.2, Gran # 6.07, Lymph # 2.3, [place] # 0.6, Eos # 0.3, Baso # 0.02 05/22/17 08:20: pCO2 40, pO2 100.0, HCO3 28.4 H, ABG pH 7.46 H, ABG Total CO2 29.6 H, ABG O2 Saturation 98.6 H, ABG Base Excess 4.2 H, ABG Potassium 3.7, Glucose 96, Lactate 0.9, FiO2 28.0, Sodium 141.0, Chloride 109.0 H, Arterial Blood Potassium 3.7 05/22/17 06:00: Troponin I < 0.01 D 05/22/17 05:30: Sodium 140, Potassium 4.3, Chloride 107, Carbon Dioxide 28, Anion Gap 10, BUN 22 H, Creatinine 0.9, Est GFR ( Amer) > 60, Est GFR ( Non-Af Amer) 60, Random Glucose 87, Calcium 9.2, Total Bilirubin 0.7, AST 30, ALT 30, Alkaline Phosphatase 68, Total Protein 6.3, Albumin 3.4, Globulin 2.9, Albumin/Globulin Ratio 1.2 05/22/17 05:30: WBC 8.0 D, RBC 3.78, Hgb 11.5 L, Hct 34.8 L, MCV 92.1, MCH 30.4 , MCHC 33.0, RDW 14.1, Plt Count 263, MPV 9.6, Gran % 57.9, Lymph % (Auto) 31.3 , [place] % (Auto) 8.0 H, Eos % (Auto) 2.7, Baso % (Auto) 0.1, Gran # 4.64, Lymph # 2.5, [place] # 0.6, Eos # 0.2, Baso # 0.01 05/21/17 14:35: Hemoglobin A1c 5.5 05/21/17 14:35: Triglycerides 61, Cholesterol 202 H, LDL Cholesterol Direct 71, HDL Cholesterol 96 H 05/21/17 14:00: Urine Color Yellow, Urine Appearance Clear, Urine pH 6.0, Ur Specific [place] >= 1.030, Urine Protein Trace H, Urine Glucose (UA) Negative, Urine Ketones Negative, Urine Blood Moderate H, Urine Nitrate Negative, Urine Bilirubin Negative, Urine Urobilinogen 0.2, Ur Leukocyte Esterase Negative, Urine RBC 15 - 20, Urine WBC 0 - 2, Ur Epithelial Cells 0 - 2, Urine Bacteria Few 05/21/17 11:12: PT 11.9, INR 1.08, APTT 34.0 05/21/17 11:12: WBC 11.7 H D, RBC 4.37, Hgb 13.2, Hct 39.7, MCV 90.8, MCH 30.2, MCHC 33.2, RDW 13.4, Plt Count 264, MPV 9.6, Gran % 76.7 H, Lymph % (Auto) 16.5 L, [place] % (Auto) 6.0, Eos % (Auto) 0.7 L, Baso % (Auto) 0.1, Gran # 9.00 H, Lymph # 1.9, [place] # 0.7 H, Eos # 0.1, Baso # 0.01 05/21/17 11:12: Sodium 141, Potassium 4.0, Chloride 105, Carbon Dioxide 28, Anion Gap 12, BUN 20, Creatinine 0.9, Est GFR ( Amer) > 60, Est GFR (Non- Af Amer) 60, Random Glucose 107, Calcium 9.7, Total Bilirubin 0.8, AST 35, ALT 35, Alkaline Phosphatase 87, Troponin I 0.02 D, Total Protein 7.8, Albumin 4.2 , Globulin 3.6, Albumin/Globulin Ratio 1.2 Dx: delirium due to a multiple medical issues. discuss with tx plan. should you have any questions please call me back. Meds - Medications Medications: Current Medications Aspirin (Aspirin) 325 mg PO DAILY [facility] Last Admin: 05/22/17 12:28 Dose: 325 mg Atorvastatin Calcium (Lipitor) 20 mg PO DIN [facility] Last Admin: 05/22/17 18:14 Dose: 20 mg Carbidopa/Levodopa (Sinemet Cr) 1 tab PO DAILY [facility] Last Admin: 05/22/17 12:28 Dose: 1 tab Enoxaparin Sodium (Lovenox) 40 mg SC DAILY [facility] PRN Reason: Protocol Last Admin: 05/22/17 12:35 Dose: 40 mg Hydralazine HCl (Apresoline) 10 mg IVP Q6 PRN PRN Reason: Systolic Blood Pressure Dextrose/Sodium Chloride (Dextrose 5%/0.9% Ns 1000 Ml) 1,000 mls @ 75 mls/hr IV .[id number] [facility] Last Admin: 05/23/17 06:25 Dose: 75 mls/hr Losartan Potassium (Cozaar) 50 mg PO DAILY [facility] Last Admin: 05/22/17 12:29 Dose: 50 mg Pantoprazole Sodium (Protonix Inj) 40 mg IVP DAILY [facility] Last Admin: 05/22/17 12:33 Dose: 40 mg Results - Vital Signs Recent Vital Signs: Last Vital Signs Temp 98.5 F 05/23/17 06:00 Pulse 77 05/23/17 06:00 Resp 16 05/23/17 06:00 BP 174/86 H 05/23/17 06:00 Pulse Ox 95 05/23/17 06:00 - Labs Result Diagrams: 05/23/17 06:00 05/23/17 06:00 Labs: Laboratory Results - last 24 hr 05/21/17 05/22/17 05/23/17 14:35 06:00 06:00 WBC 9.3 RBC 3.80 Hgb 11.3 L Hct 34.9 L MCV 91.8 MCH 29.7 MCHC 32.4 RDW 13.9 Plt Count 238 MPV 9.7 Gran % 65.4 Lymph % (Auto) 24.5 [place] % (Auto) 6.8 H Eos % (Auto) 3.1 Baso % (Auto) 0.2 Gran # 6.07 Lymph # 2.3 [place] # 0.6 Eos # 0.3 Baso # 0.02 Sodium Potassium Chloride Carbon Dioxide Anion Gap BUN Creatinine Est GFR ( Amer) Est GFR (Non-Af Amer) Random Glucose Hemoglobin A1c 5.5 Calcium Total Bilirubin AST ALT Alkaline Phosphatase Troponin I < 0.01 D Total Protein Albumin Globulin Albumin/Globulin Ratio 05/23/17 06:00 WBC RBC Hgb Hct MCV MCH MCHC RDW Plt Count MPV Gran % Lymph % (Auto) [place] % (Auto) Eos % (Auto) Baso % (Auto) Gran # Lymph # [place] # Eos # Baso # Sodium 141 Potassium 3.9 Chloride 108 H Carbon Dioxide 26 Anion Gap 11 BUN 19 Creatinine 1.0 Est GFR ( Amer) > 60 Est GFR (Non-Af Amer) 53 Random Glucose 127 H Hemoglobin A1c Calcium 8.5 Total Bilirubin 0.4 AST 31 ALT 39 Alkaline Phosphatase 59 Troponin I Total Protein 6.5 Albumin 3.3 Globulin 3.2 Albumin/Globulin Ratio 1.0 L
--- NOTE | 2017-05-22 10:25 | CP.PCM.PN ---
Addendum entered and electronically signed by Daisy Palumbo DO 05/22/17 17:42 : EEG reviewed, normal Original Note: <Daisy Palumbo - Last Filed: 05/22/17 17:35> Subjective - Date & Time of Evaluation Date of Evaluation: 05/22/17 Time of Evaluation: 10:16 - Subjective Subjective: PGY-2 Neurology progress note for Dr. Estrada's service Patient seen and examined at bedside. 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 Patient was not responding to verbal or pain stimuli. Vitals and AM lab reviewed. Head CT was done which showed no abnormalities, and chronic changes. Patient became responsive after some time. She was alert and oriented to person, place. Objective - Vital Signs/Intake and Output Vital Signs (last 24 hours): Temp Pulse Resp BP Pulse Ox 98.2 F 78 18 130/73 96 05/22/17 06:00 05/22/17 06:00 05/22/17 06:00 05/22/17 06:00 05/22/17 06:00 Intake and Output: 05/22/17 05/22/17 06:59 18:59 Intake Total 0 Output Total 0 Balance 0 - Medications Medications: Current Medications Aspirin (Aspirin) 325 mg PO DAILY [facility] Atorvastatin Calcium (Lipitor) 20 mg PO DIN [facility] Carbidopa/Levodopa (Sinemet Cr) 1 tab PO DAILY [facility] Enoxaparin Sodium (Lovenox) 40 mg SC DAILY [facility] PRN Reason: Protocol Hydralazine HCl (Apresoline) 10 mg IVP Q6 PRN PRN Reason: Systolic Blood Pressure Dextrose/Sodium Chloride (Dextrose 5%/0.9% Ns 1000 Ml) 1,000 mls @ 75 mls/hr IV .[id number] [facility] Losartan Potassium (Cozaar) 50 mg PO DAILY [facility] Pantoprazole Sodium (Protonix Inj) 40 mg IVP DAILY [facility] - Labs Labs: 05/22/17 05:30 05/22/17 05:30 PT 11.9 SECONDS (9.4-12.5) 05/21/17 11:12 INR 1.08 (0.93-1.08) 05/21/17 11:12 APTT 34.0 Seconds (25.1-36.5) 05/21/17 11:12 Assessment and Plan - Assessment and Plan (Free Text) Assessment: 87 yo female with PMH of Parkinson, HTN, TIA, chronic back pain presents with left sided weakness and had episode of unresponsiveness most likely due to cognitive impairment secondary to Parkinson. - MRA was unremarkable - MRI unremarkable - CT was unchanged - avoid sedative medication - PT/OT - consider Subacute rehab - continue asa and Lipitor - psych evaluation thank you for the consult, please reconsult in needed case reviewed and discussed with attending, Dr Estrada <Too Estrada - Last Filed: 05/22/17 21:57> Objective - Vital Signs/Intake and Output Vital Signs (last 24 hours): Temp Pulse Resp BP Pulse Ox 97.9 F 73 17 135/65 96 05/22/17 18:00 05/22/17 18:00 05/22/17 18:00 05/22/17 15:33 05/22/17 06:00 - Medications Medications: Current Medications Aspirin (Aspirin) 325 mg PO DAILY [facility] Last Admin: 05/22/17 12:28 Dose: 325 mg Atorvastatin Calcium (Lipitor) 20 mg PO DIN [facility] Last Admin: 05/22/17 18:14 Dose: 20 mg Carbidopa/Levodopa (Sinemet Cr) 1 tab PO DAILY [facility] Last Admin: 05/22/17 12:28 Dose: 1 tab Enoxaparin Sodium (Lovenox) 40 mg SC DAILY [facility] PRN Reason: Protocol Last Admin: 05/22/17 12:35 Dose: 40 mg Hydralazine HCl (Apresoline) 10 mg IVP Q6 PRN PRN Reason: Systolic Blood Pressure Dextrose/Sodium Chloride (Dextrose 5%/0.9% Ns 1000 Ml) 1,000 mls @ 75 mls/hr IV .[id number] [facility] Last Admin: 05/22/17 08:00 Dose: 75 mls/hr Losartan Potassium (Cozaar) 50 mg PO DAILY [facility] Last Admin: 05/22/17 12:29 Dose: 50 mg Pantoprazole Sodium (Protonix Inj) 40 mg IVP DAILY [facility] Last Admin: 05/22/17 12:33 Dose: 40 mg - Labs Labs: 05/22/17 05:30 05/22/17 05:30 PT 11.9 SECONDS (9.4-12.5) 05/21/17 11:12 INR 1.08 (0.93-1.08) 05/21/17 11:12 APTT 34.0 Seconds (25.1-36.5) 05/21/17 11:12 Attending/Attestation - Attestation I have personally seen and examined this patient.: Yes I have fully participated in the care of the patient.: Yes I have reviewed all pertinent clinical information, including history, physical exam and plan: Yes
--- NOTE | 2017-05-22 11:04 | MRI ---
PROCEDURE: MRI BRAIN WITHOUT CONTRAST HISTORY: unresponsive COMPARISON: MRI 05/21/2017 TECHNIQUE: Multiplanar, multisequence MR images of the brain were obtained without intravenous contrast enhancement. FINDINGS: HEMORRHAGE: None DWI: No evidence of an acute or early subacute infarction. BRAIN PARENCHYMA: No mass effect or edema. Mild chronic microvascular changes are seen in the periventricular white matter. Chronic atrophy in the left anterior temporal lobe. VENTRICLES: Unremarkable. No hydrocephalus. CRANIUM: Unremarkable. ORBITS: Grossly unremarkable. PARANASAL SINUSES/MASTOIDS: Clear VASCULAR SYSTEM: Skull base flow voids intact. OTHER FINDINGS: None. IMPRESSION: No acute findings
--- NOTE | 2017-05-22 11:10 | MRI ---
PROCEDURE: Magnetic Resonance Angiography Brain HISTORY: unresponsive COMPARISON: None available. TECHNIQUE: 3D time of flight MR angiography of the intracranial arteries was performed. Rotating maximum intensity projection images were generated. FINDINGS: INTERNAL CAROTID ARTERIES: Unremarkable. The skull base, petrous, cavernous and supraclinoid segments are bilaterally widely patient. ANTERIOR CEREBRAL ARTERIES: The anterior cerebral arteries are small in caliber and faintly visualized. MIDDLE CEREBRAL ARTERIES: Unremarkable. M1 and M2 segments are widely patent. Perisylvian branches grossly symmetric. POSTERIOR CIRCULATION: Basilar Artery: Unremarkable. Distal Vertebral Arteries: Unremarkable. Posterior Cerebral Arteries: Unremarkable. Posterior Inferior Cerebellar Arteries: Unremarkable. ANEURYSM/ VASCULAR MALFORMATIONS: None. OTHER FINDINGS: None. IMPRESSION: The anterior cerebral arteries are small in caliber and faintly visualized. The remainder the study is unremarkable
[2017-05-22] MEDS: Carbidopa/Levodopa 50/200 CR PO SCH (12:28)
[2017-05-22] MEDS: Enoxaparin 40 mg Syringe SC SCH (12:35)
--- NOTE | 2017-05-22 16:45 | US ---
PROCEDURE: Bilateral carotid artery duplex ultrasound HISTORY: Carotid stenosis TIA PHYSICIAN(S): Ministerio George MD. TECHNIQUE: Duplex sonography and color-flow Doppler were used to evaluate the carotid bifurcations and limited segments of the vertebral arteries bilaterally. FINDINGS: There is mild focal heterogeneous echogenic plaque noted at the carotid bifurcations bilaterally. The peak systolic velocity in the proximal right internal carotid artery is 59 cm/sec. This corresponds to a 20 to 39% proximal right ICA stenosis. Normal systolic velocities are noted in the proximal right external carotid artery. There is antegrade flow in the right vertebral artery. The peak systolic velocity in the proximal left internal carotid artery is 61 cm/sec. This corresponds to a 20 to 39% proximal left ICA stenosis. Normal systolic velocities are noted in the proximal left external carotid artery. There is antegrade flow in the left vertebral artery. IMPRESSION: 1. Bilateral 20-39% proximal ICA stenoses. 2. Antegrade flow in both vertebral arteries.
--- NOTE | 2017-05-22 18:24 | EEG ---
DATE: 05/22/2017 CONDITION OF THE RECORDING: Drowsy EEG. DIAGNOSIS: Altered mental status. MEDICATIONS: Reviewed by nurse's reconciliation sheet. INTERPRETATION: This is a 16-channel [employer] recording. The background activity was composed of 8 cycles per second. There was small amount of beta activity of 16 to 20 cycles per second seen in this recording. There was small amount of theta activity of 5 to 7 cycles per second seen in this tracing. Drowsiness was characterized by mixed beta and theta activities. Sleep was characterized by vertex transient waves, sleep spindles, and bilateral slowing. Photic stimulation showed no change in the tracing. No paroxysmal activity is noted in this recording. CONCLUSION: This is a normal drowsy EEG. No evidence of any epileptiform activity. Please clinically correlate. Too Estrada MD
--- NOTE | 2017-05-22 18:26 | PCM.RRT ---
OTHER SPATIAL SCIENTIST Nurse Assessment - Situation Date: 05/22/17 Time OTHER SPATIAL SCIENTIST was called: 07:46 OTHER SPATIAL SCIENTIST Responder Arrival Time: 07:47 OTHER SPATIAL SCIENTIST Location:: [address] [place] [address] Room Number: 270-1 OTHER SPATIAL SCIENTIST Reason for Call: Not Responding to Urgent Treatment, Change in Mental Status OTHER SPATIAL SCIENTIST Called By: RN - IV IV Inserted during OTHER SPATIAL SCIENTIST?: No IV Fluids Initiated During OTHER SPATIAL SCIENTIST?: D50.9NS@75ml/hr - Respiratory Oxygen Delivery Method: Nasal Cannula @L/min Oxygen Flow Rate: 2 Received Nebulizer Treatments:: No Was the Patient Ventilated with Bag/Mask 100% O2?: No Secretions Suctioned?: No Was the Patient Intubated?: No Was the Patient Placed on a Ventilator?: No - Medication Medications Administered During OTHER SPATIAL SCIENTIST: n/a - Diagnostic Test Ordered EKG: Yes Chest X-Ray: No CT Scan: Yes - Stat Labs Ordered OTHER SPATIAL SCIENTIST Stat Labs Ordered: TROPONIN CPR started during OTHER SPATIAL SCIENTIST?: No - Vital Signs Vital Sign: Rapid Response Vital Sign Blood Pressure 143/62 Pulse Rate 74 Respiratory Rate 20 Temperature 98.4 F Oxygen Saturation 97 - Finger Stick Blood Glucose Finger Stick Blood Glucose: 100 - Time OTHER SPATIAL SCIENTIST Ended Time OTHER SPATIAL SCIENTIST Ended: 08:00 - Vital Signs at end of OTHER SPATIAL SCIENTIST Vital Signs at end of OTHER SPATIAL SCIENTIST: Rapid Response End Vital Sign Blood Pressure 145/75 Pulse Rate 74 Respiratory Rate 18 Temperature 98.4 F O2 Sat by Pulse Oximetry 100 - Recommendations Notifications: Attending Physician - Respiratory Oxygen Delivery Method: Nasal Cannula @L/min Oxygen Flow Rate: 2 - Head Head Exam: ATRAUMATIC, NORMAL INSPECTION, NORMOCEPHALIC - Eyes Eye Exam: EOMI, Normal appearance, PERRL. absent: Periorbital tenderness - Respiratory Exam Respiratory Exam: Clear to Ausculation Bilateral, NORMAL BREATHING PATTERN. absent: Chest Wall Tenderness, Prolonged Expiratory Phase, Respiratory Distress - Cardiovascular Exam Cardiovascular Exam: REGULAR RHYTHM, +S1, +S2 - GI/Abdominal Exam GI & Abdominal Exam: Soft, Normal Bowel Sounds. absent: Hyperactive Bowel Sounds - Neurological Exam Neurological Exam: Altered - Extremities Exam Extremities Exam: absent: Joint Swelling, Pedal Edema, Tenderness Plan - Assessment of Findings&Treatment Plan 87 yo female with PMH of Parkinson, HTN, TIA, chronic back pain presents with left sided weakness and had episode of unresponsiveness most likely due to cognitive impairment secondary to Parkinson. As a result a rapid response was called. The patient was reassessed with a new set of vitals and labs including: -STAT Head CT -Repeat CBC, CMP -Repeat vital signs. -STAT EKG -Neurology was consulted. -Patient's PMD was notified. -IV fluids started D5 ns @75mls/hr
--- NOTE | 2017-05-22 19:05 | CARD ---
APPROVED REPORT EKG Measurement Heart [id number] <Conclusion> Sinus rhythm with aberrantly conducted APCs Otherwise normal ECG
[2017-05-23] MEDS: Dextrose 5%/0.9% NS 1,000 ML IV SCH ×2 (06:25→11:57)
[2017-05-23 06:58] LABS: BASO # 0.02 K/mm3 (0.0-2.0); BASO % 0.2 % (0.0-3.0); EOS # 0.3 (0.0-0.7); EOS % 3.1 % (1.5-5.0); GRAN # 6.07 (1.4-6.5); GRAN % 65.4 % (50.0-68.0); HEMATOCRIT 34.9 % (36.0-48.0); LYMPH # 2.3 (1.2-3.4); LYMPH % 24.5 % (22.0-35.0); MEAN CELL VOLUME 91.8 fl (80.0-105.0); MEAN CORPUSCULAR HEMOGLOBIN 29.7 pg (25.0-35.0); MEAN CORPUSCULAR HGB CONC 32.4 g/dl (31.0-37.0); MEAN PLATELET VOLUME 9.7 fl (7.0-11.0); MONO # 0.6 (0.1-0.6); MONO % 6.8 % (1.0-6.0); RED CELL DISTRIBUTION WIDTH 13.9 % (11.5-14.5); WHITE BLOOD COUNT 9.3 10^3/ul (4.5-11.0)
[2017-05-23 07:29] LABS: ALKALINE PHOSPHATASE 59 U/L (38-126); ALT/SGPT 39 U/L (7-56); AST/SGOT 31 U/L (14-36); BILIRUBIN,TOTAL 0.4 mg/dL (0.2-1.3); BLOOD UREA NITROGEN 19 mg/dL (7-21); CALCIUM 8.5 mg/dL (8.4-10.5); CARBON DIOXIDE 26 mmol/L (21-33); CHLORIDE 108 mmol/L (98-107); GFR AFRICAN-AMERICAN > 60; GLUCOSE,RANDOM 127 mg/dL (70-110); POTASSIUM 3.9 mmol/L (3.6-5.0); SODIUM 141 mmol/L (132-148); TOTAL PROTEIN 6.5 g/dL (5.8-8.3)
[2017-05-23] MEDS: Carbidopa/Levodopa 50/200 CR PO SCH (10:19)
[2017-05-23] MEDS: Enoxaparin 40 mg Syringe SC SCH (10:21)
--- NOTE | 2017-05-23 11:26 | CP.PCM.PN ---
<Aj Thomson - Last Filed: 05/23/17 11:19> Subjective - Date & Time of Evaluation Date of Evaluation: 05/23/17 Time of Evaluation: 07:40 - Subjective Subjective: Subjective: Patient seen and examined at bedside. Resting comfortably in bed eating breakfast. No acute events overnight. Patient states she is doing well. Offers no new complaints at this time. Denies fever, chills, chest pain, shortness of breath, abdominal pain, nausea, vomiting, diarrhea, constipation, and urinary symptoms. 12-point review of systems negative except as indicated in the HPI Physical Examination: - Constitutional Appears: Non-toxic, No Acute Distress - Head Exam Head Exam: ATRAUMATIC, NORMAL INSPECTION, NORMOCEPHALIC - Eye Exam Eye Exam: EOMI, PERRL - ENT Exam ENT Exam: Mucous Membranes Moist - Neck Exam Neck exam: Positive for: Normal Inspection. Negative for: Lymphadenopathy, Tenderness, Thyromegaly - Respiratory Exam Respiratory Exam: Clear to Auscultation Bilateral. absent: Rales, Rhonchi, Wheezes - Cardiovascular Exam Cardiovascular Exam: RRR, +S1, +S2. absent: Gallop, JVD, Rubs, Systolic Murmur - GI/Abdominal Exam GI & Abdominal Exam: Normal Bowel Sounds, Soft. absent: Distended, Firm, Guarding, Rigid, Tenderness - Extremities Exam Extremities exam: Positive for: normal inspection. Negative for: calf tenderness, pedal edema, tenderness - Neurological Exam Neurological exam: Patient is awake, alert, aao x [address], responds to verbal stimuli, answers questions appropriately, follows commands, and moves extremities spontaneously, CN II-XII grossly intact, no visible facial droop, sensory intact throughout - Psychiatric Exam Psychiatric exam: Normal Affect, Normal Mood - Skin Skin Exam: Dry, Intact, Normal Color, Warm Assessment and Plan: Patient is a 87 year-old female with a past medical history of Parkinson's disease, HTN, HLD and TIA who is admitted for evaluation and treatment of generalized weakness and left-sided facial droop Altered Mental Status - CT Head reviewed 05/17/17- no acute intracranial abnormalities - CXR reviewed; no active disease - Brain MRI- no acute findings - Brain MRA- no acute findings - Carotid Doppler- pending - Lipid panel reviewed- elevated CHL and high HDL - continue with ASA 325mg PO daily - Heart healthy diet - Neurochecks - Fall precautions - Physical therapy/Occupational therapy evaluation- appreciate recommendations - Neurology consulted- appreciate recommendations, EEG- normal drowsy results, no epileptic activity noted - Psychiatry consulted- no acute psych intervention needed Hypertension - BPs trended, reviewed, and appreciated, will continue to monitor closely - Continue with losartan 50mg PO daily - Continue with hydralazine PRN with BP parameters Hyperlipidemia - Continue with Lipitor 20mg PO Parkinson's - c/w sinemet GI/DVT Prophylaxis - Protonix - Lovenox Deconditioning - physical therapy consulted- recommend LUIS - case management consulted- appreciate recommendations Patient seen, case discussed with, and plan approved by attending physician, Dr. Zuniga. Objective - Vital Signs/Intake and Output Vital Signs (last 24 hours): Temp Pulse Resp BP Pulse Ox 98.5 F 84 16 154/90 H 95 05/23/17 06:00 05/23/17 10:24 05/23/17 06:00 05/23/17 10:24 05/23/17 06:00 Intake and Output: 05/23/17 05/23/17 06:59 18:59 Intake Total 1200 Balance 1200 - Medications Medications: Current Medications Aspirin (Aspirin) 325 mg PO DAILY [facility] Last Admin: 05/23/17 10:19 Dose: 325 mg Atorvastatin Calcium (Lipitor) 20 mg PO DIN [facility] Last Admin: 05/22/17 18:14 Dose: 20 mg Carbidopa/Levodopa (Sinemet Cr) 1 tab PO DAILY [facility] Last Admin: 05/23/17 10:19 Dose: 1 tab Enoxaparin Sodium (Lovenox) 40 mg SC DAILY [facility] PRN Reason: Protocol Last Admin: 05/23/17 10:21 Dose: 40 mg Hydralazine HCl (Apresoline) 10 mg IVP Q6 PRN PRN Reason: Systolic Blood Pressure Dextrose/Sodium Chloride (Dextrose 5%/0.9% Ns 1000 Ml) 1,000 mls @ 75 mls/hr IV .[id number] [facility] Last Admin: 05/23/17 06:25 Dose: 75 mls/hr Losartan Potassium (Cozaar) 50 mg PO DAILY [facility] Last Admin: 05/23/17 10:24 Dose: 50 mg Pantoprazole Sodium (Protonix Inj) 40 mg IVP DAILY [facility] Last Admin: 05/23/17 10:21 Dose: 40 mg - Labs Labs: 05/23/17 06:00 05/23/17 06:00 PT 11.9 SECONDS (9.4-12.5) 05/21/17 11:12 INR 1.08 (0.93-1.08) 05/21/17 11:12 APTT 34.0 Seconds (25.1-36.5) 05/21/17 11:12 <Aldair Zuniga - Last Filed: 05/23/17 13:49> Objective - Vital Signs/Intake and Output Vital Signs (last 24 hours): Temp Pulse Resp BP Pulse Ox 97.4 F L 91 H 16 143/78 95 05/23/17 12:00 05/23/17 12:00 05/23/17 12:00 05/23/17 12:00 05/23/17 06:00 Intake and Output: 05/23/17 05/23/17 06:59 18:59 Intake Total 1200 Balance 1200 - Medications Medications: Current Medications Aspirin (Aspirin) 325 mg PO DAILY [facility] Last Admin: 05/23/17 10:19 Dose: 325 mg Atorvastatin Calcium (Lipitor) 20 mg PO DIN [facility] Last Admin: 05/22/17 18:14 Dose: 20 mg Carbidopa/Levodopa (Sinemet Cr) 1 tab PO DAILY [facility] Last Admin: 05/23/17 10:19 Dose: 1 tab Enoxaparin Sodium (Lovenox) 40 mg SC DAILY [facility] PRN Reason: Protocol Last Admin: 05/23/17 10:21 Dose: 40 mg Hydralazine HCl (Apresoline) 10 mg IVP Q6 PRN PRN Reason: Systolic Blood Pressure Dextrose/Sodium Chloride (Dextrose 5%/0.9% Ns 1000 Ml) 1,000 mls @ 75 mls/hr IV .[id number] [facility] Last Admin: 05/23/17 11:57 Dose: 75 mls/hr Losartan Potassium (Cozaar) 50 mg PO DAILY [facility] Last Admin: 05/23/17 10:24 Dose: 50 mg Pantoprazole Sodium (Protonix Ec Tab) 40 mg PO DAILY [facility] - Labs Labs: 05/23/17 06:00 05/23/17 06:00 PT 11.9 SECONDS (9.4-12.5) 05/21/17 11:12 INR 1.08 (0.93-1.08) 05/21/17 11:12 APTT 34.0 Seconds (25.1-36.5) 05/21/17 11:12 Attending/Attestation - Attestation I have personally seen and examined this patient.: Yes I have fully participated in the care of the patient.: Yes I have reviewed all pertinent clinical information, including history, physical exam and plan: Yes Notes (Text): Attending note; Patient seen and examined with resident. Patient is a 87 year old female with past medical history of Parkinson's, hypertension, dyslipidemia and CVA who presents today with complaint of weakness and left sided facial droop. CT scan showed no acute infarct. 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 Chronic microangiopathic changes with global volume loss noted. MRI Showed no acute infarct and MRA is normal. Case discussed with neurologist Dr. Estrada in detail. Parkinson's with gait instability/and dementia; continue Sinemet. Physical therapy evaluation appreciated. warm in worker evaluation appreciated for discharge planning. possible transfer to [facility] tomorrow. Upon discharge the patient will follow-up with PMD DR. Desouza.
[2017-05-24 06:02] LABS: BASO # 0.02 K/mm3 (0.0-2.0); BASO % 0.2 % (0.0-3.0); EOS # 0.4 (0.0-0.7); EOS % 5.3 % (1.5-5.0); GRAN # 5.17 (1.4-6.5); GRAN % 61.7 % (50.0-68.0); HEMATOCRIT 34.6 % (36.0-48.0); LYMPH # 2.1 (1.2-3.4); LYMPH % 24.8 % (22.0-35.0); MEAN CELL VOLUME 92.5 fl (80.0-105.0); MEAN CORPUSCULAR HEMOGLOBIN 29.7 pg (25.0-35.0); MEAN CORPUSCULAR HGB CONC 32.1 g/dl (31.0-37.0); MEAN PLATELET VOLUME 9.9 fl (7.0-11.0); MONO # 0.7 (0.1-0.6); RED CELL DISTRIBUTION WIDTH 13.9 % (11.5-14.5); WHITE BLOOD COUNT 8.4 10^3/ul (4.5-11.0)
[2017-05-24 06:27] VITALS: O2SAT 98
[2017-05-24 07:26] LABS: ALKALINE PHOSPHATASE 56 U/L (38-126); ALT/SGPT 30 U/L (7-56); AST/SGOT 34 U/L (14-36); BILIRUBIN,TOTAL 0.5 mg/dL (0.2-1.3); BLOOD UREA NITROGEN 14 mg/dL (7-21); CALCIUM 8.4 mg/dL (8.4-10.5); CARBON DIOXIDE 27 mmol/L (21-33); CHLORIDE 108 mmol/L (98-107); GFR AFRICAN-AMERICAN > 60; GLUCOSE,RANDOM 114 mg/dL (70-110); POTASSIUM 3.9 mmol/L (3.6-5.0); SODIUM 139 mmol/L (132-148); TOTAL PROTEIN 6.2 g/dL (5.8-8.3)
[2017-05-24] MEDS: Enoxaparin 40 mg Syringe SC SCH (09:02)
[2017-05-24] MEDS: Carbidopa/Levodopa 50/200 CR PO SCH (09:02)
[2017-05-24] MEDS ORDERED: Pantoprazole 40 mg EC Tab PO SCH (10:00)
--- NOTE | 2017-05-24 11:24 | CP.PCM.DIS ---
<Aj Thomson - Last Filed: 05/24/17 11:17> Provider - Provider Date of Admission: 05/21/17 13:43 Attending physician: Aldair Zuniga MD Time Spent in preparation of Discharge (in minutes): 45 Diagnosis - Discharge Diagnosis (1) Muscular deconditioning Status: Chronic Priority: Medium (2) TIA (transient ischemic attack) Status: Acute Priority: High (3) Hyperlipidemia Status: Chronic Priority: Medium (4) Hypertension Status: Chronic Priority: Medium (5) Parkinson disease Status: Chronic Priority: Medium Hospital Course - Lab Results Lab Results: Micro Results 05/21/17 14:00 Urine Urine Culture - Final Corynebacterium Species Most Recent Lab Values WBC 8.4 10^3/ul (4.5-11.0) 05/24/17 05:30 RBC 3.74 10^6/uL (3.5-6.1) 05/24/17 05:30 Hgb 11.1 g/dL (12.0-16.0) L 05/24/17 05:30 Hct 34.6 % (36.0-48.0) L 05/24/17 05:30 MCV 92.5 fl (80.0-105.0) 05/24/17 05:30 MCH 29.7 pg (25.0-35.0) 05/24/17 05:30 MCHC 32.1 g/dl (31.0-37.0) 05/24/17 05:30 RDW 13.9 % (11.5-14.5) 05/24/17 05:30 Plt Count 239 10^3/uL (120.0-450.0) 05/24/17 05:30 MPV 9.9 fl (7.0-11.0) 05/24/17 05:30 Gran % 61.7 % (50.0-68.0) 05/24/17 05:30 Lymph % (Auto) 24.8 % (22.0-35.0) 05/24/17 05:30 [place] % (Auto) 8.0 % (1.0-6.0) H 05/24/17 05:30 Eos % (Auto) 5.3 % (1.5-5.0) H 05/24/17 05:30 Baso % (Auto) 0.2 % (0.0-3.0) 05/24/17 05:30 Gran # 5.17 (1.4-6.5) 05/24/17 05:30 Lymph # 2.1 (1.2-3.4) 05/24/17 05:30 [place] # 0.7 (0.1-0.6) H 05/24/17 05:30 Eos # 0.4 (0.0-0.7) 05/24/17 05:30 Baso # 0.02 K/mm3 (0.0-2.0) 05/24/17 05:30 PT 11.9 SECONDS (9.4-12.5) 05/21/17 11:12 INR 1.08 (0.93-1.08) 05/21/17 11:12 APTT 34.0 Seconds (25.1-36.5) 05/21/17 11:12 pCO2 40 mm/Hg (35-45) 05/22/17 08:20 pO2 100.0 mm/Hg (80-100) 05/22/17 08:20 HCO3 28.4 mmol/L (21-28) H 05/22/17 08:20 ABG pH 7.46 (7.35-7.45) H 05/22/17 08:20 ABG Total CO2 29.6 mmol.L (22-28) H 05/22/17 08:20 ABG O2 Saturation 98.6 % (95-98) H 05/22/17 08:20 ABG Base Excess 4.2 mmol/L (-2.0-3.0) H 05/22/17 08:20 ABG Potassium 3.7 mmol/L (3.6-5.2) 05/22/17 08:20 Sodium 141.0 mmol/L (132-148) 05/22/17 08:20 Chloride 109.0 mmol/L (98-107) H 05/22/17 08:20 Glucose 96 mg/dl (65-105) 05/22/17 08:20 Lactate 0.9 mmol/L (0.7-2.1) 05/22/17 08:20 FiO2 28.0 % 05/22/17 08:20 Sodium 139 mmol/L (132-148) 05/24/17 05:30 Potassium 3.9 mmol/L (3.6-5.0) 05/24/17 05:30 Chloride 108 mmol/L (98-107) H 05/24/17 05:30 Carbon Dioxide 27 mmol/L (21-33) 05/24/17 05:30 Anion Gap 9 (10-20) L 05/24/17 05:30 BUN 14 mg/dL (7-21) 05/24/17 05:30 Creatinine 0.9 mg/dl (0.7-1.2) 05/24/17 05:30 Est GFR ( Amer) > 60 05/24/17 05:30 Est GFR (Non-Af Amer) 60 05/24/17 05:30 Random Glucose 114 mg/dL (70-110) H 05/24/17 05:30 Hemoglobin A1c 5.5 % (4.2-6.5) 05/21/17 14:35 Calcium 8.4 mg/dL (8.4-10.5) 05/24/17 05:30 Total Bilirubin 0.5 mg/dL (0.2-1.3) 05/24/17 05:30 AST 34 U/L (14-36) 05/24/17 05:30 ALT 30 U/L (7-56) 05/24/17 05:30 Alkaline Phosphatase 56 U/L (38-126) 05/24/17 05:30 Troponin I < 0.01 ng/mL D 05/22/17 06:00 Total Protein 6.2 g/dL (5.8-8.3) 05/24/17 05:30 Albumin 3.1 g/dL (3.0-4.8) 05/24/17 05:30 Globulin 3.1 gm/dL 05/24/17 05:30 Albumin/Globulin Ratio 1.0 (1.1-1.8) L 05/24/17 05:30 Triglycerides 61 mg/dL (35-160) 05/21/17 14:35 Cholesterol 202 mg/dL (130-200) H 05/21/17 14:35 LDL Cholesterol Direct 71 mg/dL (0-129) 05/21/17 14:35 HDL Cholesterol 96 mg/dL (29-60) H 05/21/17 14:35 Arterial Blood Potassium 3.7 mmol/L (3.6-5.2) 05/22/17 08:20 Urine Color Yellow (YELLOW) 05/21/17 14:00 Urine Appearance Clear (CLEAR) 05/21/17 14:00 Urine pH 6.0 (4.7-8.0) 05/21/17 14:00 Ur Specific [place] >= 1.030 (1.005-1.035) 05/21/17 14:00 Urine Protein Trace mg/dL (<30 mg/dL) H 05/21/17 14:00 Urine Glucose (UA) Negative mg/dL (NEGATIVE) 05/21/17 14:00 Urine Ketones Negative mg/dL (NEGATIVE) 05/21/17 14:00 Urine Blood Moderate (NEGATIVE) H 05/21/17 14:00 Urine Nitrate Negative (NEGATIVE) 05/21/17 14:00 Urine Bilirubin Negative (NEGATIVE) 05/21/17 14:00 Urine Urobilinogen 0.2 E.U./dL (<1 E.U./dL) 05/21/17 14:00 Ur Leukocyte Esterase Negative Yoselyn/uL (NEGATIVE) 05/21/17 14:00 Urine RBC 15 - 20 /hpf (0-2) 05/21/17 14:00 Urine WBC 0 - 2 /hpf (0-6) 05/21/17 14:00 Ur Epithelial Cells 0 - 2 /hpf (0-5) 05/21/17 14:00 Urine Bacteria Few (NEG) 05/21/17 14:00 - Hospital Course Hospital Course: Patient is a 87 year-old female with a past medical history of Parkinson's disease, HTN, HLD and TIA who is admitted for evaluation and treatment of generalized weakness and left-sided facial droop. With the use of physical examinations, lab work, and imaging the patient was diagnosed with and treated for altered mental status, TIA, along with the patients chronic medical conditions. During their hospital stay the patient was seen by neurology, psychiatry, and physical therapy whose recommendations were both appreciated and utilized in the care for this patient. During their hospital stay the patient underwent a head CT, chest x-ray, brain MRI, head MRA, carotid artery ultrasound, and EEG which were reviewed, appreciated, and utilized in the management of the patients clinical course. Patient was treated with antihypertensive medications, anticogulants, amongst other empiric/therapeutic medications. During the hospital stay there was a rapid response that was called on the patient for AMS. Patient was taken to CT. CT read showed no acute intracranial abnormality, left anterior temporal cystic encephalomalacia, sequela of remote infarction,and mild chronic microangiopathic changes and mild age-related global parenchymal volume loss. Patient's cognition improved to baseline. Physicla therapy recommended subacute rehabilitation and patient has been accepted. At this time the patient is medically stable for discharge to [facility]. Patient understands and appreciates discharge plan. Patient instructed to follow up with primary care physicians and referrals within three to five days from discharge. Furthermore, the patient is instructed to take medications as prescribed and to return to emergency room for evaluation of intractable headache, fever, chills, dizziness, chest pain, shortness of breath, abdominal pain, nausea, vomiting, diarrhea, constipation, and urinary symptoms. This is a brief summary of the patients hospital course. Please see patient chart for full details. Discharge Exam - Head Exam Head Exam: ATRAUMATIC, NORMAL INSPECTION, NORMOCEPHALIC - Additional Findings Additional findings: - Constitutional Appears: Non-toxic, No Acute Distress - Head Exam Head Exam: ATRAUMATIC, NORMAL INSPECTION, NORMOCEPHALIC - Eye Exam Eye Exam: EOMI, PERRL - ENT Exam ENT Exam: Mucous Membranes Moist - Neck Exam Neck exam: Positive for: Normal Inspection. Negative for: Lymphadenopathy, Tenderness, Thyromegaly - Respiratory Exam Respiratory Exam: Clear to Auscultation Bilateral. absent: Rales, Rhonchi, Wheezes - Cardiovascular Exam Cardiovascular Exam: RRR, +S1, +S2. absent: Gallop, JVD, Rubs, Systolic Murmur - GI/Abdominal Exam GI & Abdominal Exam: Normal Bowel Sounds, Soft. absent: Distended, Firm, Guarding, Rigid, Tenderness - Extremities Exam Extremities exam: Positive for: normal inspection. Negative for: calf tenderness, pedal edema, tenderness - Neurological Exam Neurological exam: Patient is awake, alert, responds to verbal stimuli, answers questions appropriately, follows commands, and moves extremities spontaneously, CN II-XII grossly intact, no visible facial droop, sensory intact throughout - Psychiatric Exam Psychiatric exam: Normal Affect, Normal Mood - Skin Skin Exam: Dry, Intact, Normal Color, Warm Discharge Plan - Discharge Medications Prescriptions: Aspirin [Adult Low Dose Aspirin EC] 81 mg PO DAILY 30 Days tablet. Memantine [Namenda] 5 mg PO BID #30 tab - Follow Up Plan Condition: STABLE Disposition: TRANSF TO SNF Patient education suggested?: Yes Instructions: Transient Ischemic Attack (DC) Additional Instructions: Patient Instructions: Take medications as prescribed. New medication includes Memantine 5mg 1 tablet orally twice a day Follow up with PMD and referrals within three to five days from discharge. Return to the emergency room for evaluation of intractable headache, fever, chills, dizziness, chest pain, shortness of breath, abdominal pain, nausea, vomiting, diarrhea, constipation, and urinary symptoms. <Aldair Zuniga - Last Filed: 05/24/17 15:33> Provider - Provider Date of Admission: 05/21/17 13:43 Attending physician: Aldair Zuniga MD Hospital Course - Lab Results Lab Results: Micro Results 05/21/17 14:00 Urine Urine Culture - Final Corynebacterium Species Most Recent Lab Values WBC 8.4 10^3/ul (4.5-11.0) 05/24/17 05:30 RBC 3.74 10^6/uL (3.5-6.1) 05/24/17 05:30 Hgb 11.1 g/dL (12.0-16.0) L 05/24/17 05:30 Hct 34.6 % (36.0-48.0) L 05/24/17 05:30 MCV 92.5 fl (80.0-105.0) 05/24/17 05:30 MCH 29.7 pg (25.0-35.0) 05/24/17 05:30 MCHC 32.1 g/dl (31.0-37.0) 05/24/17 05:30 RDW 13.9 % (11.5-14.5) 05/24/17 05:30 Plt Count 239 10^3/uL (120.0-450.0) 05/24/17 05:30 MPV 9.9 fl (7.0-11.0) 05/24/17 05:30 Gran % 61.7 % (50.0-68.0) 05/24/17 05:30 Lymph % (Auto) 24.8 % (22.0-35.0) 05/24/17 05:30 [place] % (Auto) 8.0 % (1.0-6.0) H 05/24/17 05:30 Eos % (Auto) 5.3 % (1.5-5.0) H 05/24/17 05:30 Baso % (Auto) 0.2 % (0.0-3.0) 05/24/17 05:30 Gran # 5.17 (1.4-6.5) 05/24/17 05:30 Lymph # 2.1 (1.2-3.4) 05/24/17 05:30 [place] # 0.7 (0.1-0.6) H 05/24/17 05:30 Eos # 0.4 (0.0-0.7) 05/24/17 05:30 Baso # 0.02 K/mm3 (0.0-2.0) 05/24/17 05:30 PT 11.9 SECONDS (9.4-12.5) 05/21/17 11:12 INR 1.08 (0.93-1.08) 05/21/17 11:12 APTT 34.0 Seconds (25.1-36.5) 05/21/17 11:12 pCO2 40 mm/Hg (35-45) 05/22/17 08:20 pO2 100.0 mm/Hg (80-100) 05/22/17 08:20 HCO3 28.4 mmol/L (21-28) H 05/22/17 08:20 ABG pH 7.46 (7.35-7.45) H 05/22/17 08:20 ABG Total CO2 29.6 mmol.L (22-28) H 05/22/17 08:20 ABG O2 Saturation 98.6 % (95-98) H 05/22/17 08:20 ABG Base Excess 4.2 mmol/L (-2.0-3.0) H 05/22/17 08:20 ABG Potassium 3.7 mmol/L (3.6-5.2) 05/22/17 08:20 Sodium 141.0 mmol/L (132-148) 05/22/17 08:20 Chloride 109.0 mmol/L (98-107) H 05/22/17 08:20 Glucose 96 mg/dl (65-105) 05/22/17 08:20 Lactate 0.9 mmol/L (0.7-2.1) 05/22/17 08:20 FiO2 28.0 % 05/22/17 08:20 Sodium 139 mmol/L (132-148) 05/24/17 05:30 Potassium 3.9 mmol/L (3.6-5.0) 05/24/17 05:30 Chloride 108 mmol/L (98-107) H 05/24/17 05:30 Carbon Dioxide 27 mmol/L (21-33) 05/24/17 05:30 Anion Gap 9 (10-20) L 05/24/17 05:30 BUN 14 mg/dL (7-21) 05/24/17 05:30 Creatinine 0.9 mg/dl (0.7-1.2) 05/24/17 05:30 Est GFR ( Amer) > 60 05/24/17 05:30 Est GFR (Non-Af Amer) 60 05/24/17 05:30 Random Glucose 114 mg/dL (70-110) H 05/24/17 05:30 Hemoglobin A1c 5.5 % (4.2-6.5) 05/21/17 14:35 Calcium 8.4 mg/dL (8.4-10.5) 05/24/17 05:30 Total Bilirubin 0.5 mg/dL (0.2-1.3) 05/24/17 05:30 AST 34 U/L (14-36) 05/24/17 05:30 ALT 30 U/L (7-56) 05/24/17 05:30 Alkaline Phosphatase 56 U/L (38-126) 05/24/17 05:30 Troponin I < 0.01 ng/mL D 05/22/17 06:00 Total Protein 6.2 g/dL (5.8-8.3) 05/24/17 05:30 Albumin 3.1 g/dL (3.0-4.8) 05/24/17 05:30 Globulin 3.1 gm/dL 05/24/17 05:30 Albumin/Globulin Ratio 1.0 (1.1-1.8) L 05/24/17 05:30 Triglycerides 61 mg/dL (35-160) 05/21/17 14:35 Cholesterol 202 mg/dL (130-200) H 05/21/17 14:35 LDL Cholesterol Direct 71 mg/dL (0-129) 05/21/17 14:35 HDL Cholesterol 96 mg/dL (29-60) H 05/21/17 14:35 Arterial Blood Potassium 3.7 mmol/L (3.6-5.2) 05/22/17 08:20 Urine Color Yellow (YELLOW) 05/21/17 14:00 Urine Appearance Clear (CLEAR) 05/21/17 14:00 Urine pH 6.0 (4.7-8.0) 05/21/17 14:00 Ur Specific [place] >= 1.030 (1.005-1.035) 05/21/17 14:00 Urine Protein Trace mg/dL (<30 mg/dL) H 05/21/17 14:00 Urine Glucose (UA) Negative mg/dL (NEGATIVE) 05/21/17 14:00 Urine Ketones Negative mg/dL (NEGATIVE) 05/21/17 14:00 Urine Blood Moderate (NEGATIVE) H 05/21/17 14:00 Urine Nitrate Negative (NEGATIVE) 05/21/17 14:00 Urine Bilirubin Negative (NEGATIVE) 05/21/17 14:00 Urine Urobilinogen 0.2 E.U./dL (<1 E.U./dL) 05/21/17 14:00 Ur Leukocyte Esterase Negative Yoselyn/uL (NEGATIVE) 05/21/17 14:00 Urine RBC 15 - 20 /hpf (0-2) 05/21/17 14:00 Urine WBC 0 - 2 /hpf (0-6) 05/21/17 14:00 Ur Epithelial Cells 0 - 2 /hpf (0-5) 05/21/17 14:00 Urine Bacteria Few (NEG) 05/21/17 14:00 Attending/Attestation - Attestation I have personally seen and examined this patient.: Yes I have fully participated in the care of the patient.: Yes I have reviewed all pertinent clinical information, including history, physical exam and plan: Yes Notes (Text): 05/24/17 15:29 Attending note; Patient seen and examined with resident. Patient is a 87 year old female with past medical history of Parkinson's, hypertension, dyslipidemia and CVA who presents today with complaint of weakness and left sided facial droop. CT scan showed no acute infarct. 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 Chronic microangiopathic changes with global volume loss noted. MRI Showed no acute infarct and MRA is normal. Case discussed with neurologist Dr. Estrada in detail. Parkinson's with gait instability/and dementia; continue Sinemet. Physical therapy evaluation appreciated. workers compensation examiner evaluation appreciated for discharge planning. transfer to [facility] today. Upon discharge the patient will follow-up with PMD DR. Desouza. diagnosis; Parkinson's disease Dementia Gait instability hypertension CVA
[2017-05-24 12:16] VITALS: BP 120/70; PULSE 95; RESP 20; TEMP 97.9
== END 2017-05-24 13:39 | DRG 69 ==
LOC: ED 10:51 → ERH 13:43 → 2RSO 15:10
PROVIDERS: ADMIT Internal Medicine; ATTEND Internal Medicine
DX: G45.9 Transient cerebral ischemic attack, unspecified (principal); G20 Parkinson's disease; G93.89 Other specified disorders of brain; G30.9 Alzheimer's disease, unspecified; F02.80 Dementia in other diseases classified elsewhere, unspecified severity, without behavioral disturbance, psychotic disturbance, mood disturbance, and anxiety; E78.5 Hyperlipidemia, unspecified; I10 Essential (primary) hypertension; Z86.73 Personal history of transient ischemic attack (TIA), and cerebral infarction without residual deficits; Z79.82 Long term (current) use of aspirin; Z79.899 Other long term (current) drug therapy; R40.2411 Glasgow coma scale score 13-15, in the field [EMT or ambulance]; R53.1 Weakness; G89.29 Other chronic pain; M54.9 Dorsalgia, unspecified

== ENCOUNTER 2017-08-07 06:50 | Inpatient (IN) | payer MEDICARE, BC ==
[2017-08-07] MEDS ORDERED: Vancomycin 1gm in NS 250ml 1 GM/250 ML BAG IVPB STA (07:37)
[2017-08-07] MEDS ORDERED: Piperacillin/Tazobact 3.375 gm 100 ML IVPB STA (07:37)
--- NOTE | 2017-08-07 07:46 | ED PDOC ---
Arrival/HPI - General Chief Complaint: Weakness/Neurological Deficit Time Seen by Provider: 08/07/17 07:11 Historian: Family - History of Present Illness Narrative History of Present Illness (Text): 08/07/17 07:42 87 year old female, with past medical history of Parkinson's, hypertension, TIA , chronic back pain, and hyperlipidemia, presents to the Emergency department with daughter complaining of increased confusion, generalized weakness and poor appetite for past 2 days. As per daughter patient appear to be more confused than baseline bringing her to the Emergency department today. Limited history provided. Patient is verbal but confused according to daughter. Patient lives at home with daughter. PMD: Protoczek Time/Duration: < week Symptom Onset: Gradual Symptom Course: Unchanged Activities at Onset: Light Context: Home Past Medical History - Provider Review Nursing Documentation Reviewed: Yes - Past History Past History: No Previous - Infectious Disease Hx of Infectious Diseases: None - Cardiac Hx Hypertension: Yes - Pulmonary Hx Respiratory Disorders: No - Neurological Hx Neurological Disorder: Yes Hx Parkinson's Disease: Yes - HEENT Hx HEENT Disorder: Yes (eyeglasses) Other/Comment: eye sx fatty tissue removed from both eyelids - Renal Hx Renal Disorder: No - Endocrine/Metabolic Hx Endocrine Disorders: No - Hematological/Oncological Hx Blood Disorders: No - Integumentary Hx Dermatological Disorder: No - Musculoskeletal/Rheumatological Hx Falls: No - Gastrointestinal Hx Gastrointestinal Disorders: No - Genitourinary/Gynecological Hx Genitourinary Disorders: No - Psychiatric Hx Psychophysiologic Disorder: No Hx Substance Use: No - Surgical History Other/Comment: eye surgeryfatty tissue removed from both eyelids - Anesthesia Hx Anesthesia Reactions: No Family/Social History - Physician Review Nursing Documentation Reviewed: Yes Family/Social History: No Known Family HX Smoking Status: Never Smoked Hx Alcohol Use: No Hx Substance Use: No Allergies/Home Meds Allergies/Adverse Reactions: Allergies No Known Allergies Allergy (Verified 05/21/17 11:09) Home Medications: Home Meds Medication Instructions Recorded Confirmed Carbidopa/Levodopa 50/200 CR 50 mg PO DAILY 10/08/15 08/07/17 [Sinemet CR] Simvastatin 20 mg PO DAILY 10/08/15 08/07/17 Cefuroxime Axetil [Cefuroxime] 500 mg PO BID 08/07/17 08/07/17 Pantoprazole [Protonix] 40 mg PO DAILY 08/07/17 08/07/17 hydrALAZINE [hydralazine 10 mg PO QID 08/07/17 08/07/17 Hydrochloride] Review of Systems - Physician Review All systems were reviewed & negative as marked: Yes - Review of Systems Systems not reviewed;Unavailable: Other (Confusion) Constitutional: Normal Eyes: Normal Respiratory: Normal Cardiovascular: Normal Gastrointestinal: Appetite Changes (poor appetite ) Musculoskeletal: Other (generalized weakness) Skin: Normal Neurological: Other (Increased confusion) Physical Exam Vital Signs Reviewed: Yes Vital Signs Temp Pulse Pulse Resp BP Pulse Ox 08/07/17 14:00 89 18 117/52 L 96 08/07/17 12:00 92 H 18 110/59 L 96 08/07/17 11:00 86 18 100/59 L 97 08/07/17 10:45 92 H 18 108/44 L 97 08/07/17 10:20 98.9 F 96 H 16 107/55 L 108 H 08/07/17 09:00 90 18 117/70 98 08/07/17 07:35 92 H 08/07/17 07:12 97.8 F 08/07/17 07:09 95 H 18 128/80 97 Temperature: Afebrile Blood Pressure: Normal Pulse: Regular Respiratory Rate: Normal Appearance: Positive for: Well-Appearing, Non-Toxic, Comfortable Pain Distress: None Mental Status: Positive for: Confused Finger Stick Blood Glucose: 168 - Systems Exam Head: Present: Atraumatic, Normocephalic Pupils: Present: PERRL Extroacular Muscles: Present: EOMI Conjunctiva: Present: Normal Mouth: Present: Moist Mucous Membranes Neck: Present: Normal Range of Motion Respiratory/Chest: Present: Clear to Auscultation, Good Air Exchange. No: Respiratory Distress, Accessory Muscle Use Cardiovascular: Present: Regular Rate and Rhythm, Normal S1, S2. No: Murmurs Abdomen: Present: Normal Bowel Sounds. No: Tenderness, Distention, Peritoneal Signs Back: Present: Decubitus Ulcer (stage 4 sacral decubitus with purulent discharge ) Upper Extremity: Present: Normal Inspection. No: Cyanosis, Edema Lower Extremity: Present: Normal Inspection. No: Edema Neurological: Present: GCS=15, CN II-XII Intact, Speech Normal, Other (awake but slow confused responses. No nonfocal deficits.) Skin: Present: Warm, Dry, Normal Color. No: Rashes Psychiatric: Present: Alert, Other (Confused) Medical Decision Making ED Course and Treatment: 08/07/17 08:01 Impression: 87 year old female presents to the Emergency department for generalized weakness and confusion. Plan: -- CT of Head -- EKG -- Labs -- Chest X-ray -- IV Fluids -- Blood Culture -- Urine Culture -- Wound Culture -- Reassess and disposition Progress Notes: 08/07/17 10:21 Code Sepsis called. 08/07/17 10:23 Chest X-ray reviewed by radiologist, shows no active pulmonary disease. CT of head reviewed by radiologist, shows no acute intracranial abnormality. Moderate chronic microangiopathic changes and mild age-related global parenchymal volume loss. 08/08/17 11:07 pt seen with resident. ams.sacral descrub. tx iv antibotics, hemodynamic stable for telel. accepted by hospitilis.t - Lab Interpretations Microbiology Results: Microbiology Results 08/07/17 09:30 Blood Blood Culture - Preliminary NO GROWTH AFTER 24 HOURS 08/07/17 09:20 Blood Blood Culture - Preliminary NO GROWTH AFTER 24 HOURS Lab Results: 08/07/17 09:30 08/07/17 09:30 Lab Results 08/07/17 09:30: pO2 27 L, VBG pH 7.37, VBG pCO2 52.0, VBG HCO3 30.1 H, VBG Total CO2 31.7 H, VBG O2 Sat (Calc) 50.7, VBG Base Excess 3.6 H, VBG Potassium 3.4 L, Sodium 153.0 H, Chloride 115.0 H, Glucose 194 H, Lactate 3.3 H, FiO2 21.0 , Venous Blood Potassium 3.4 L 08/07/17 09:30: Sodium 155 H, Chloride 112 H, Potassium 3.4 L, Carbon Dioxide 30 , Anion Gap 18, BUN 42 H, Creatinine 1.3 H, Est GFR ( Amer) 47, Est GFR ( Non-Af Amer) 39, Random Glucose 185 H, Calcium 9.1, Magnesium 2.4 H, Total Bilirubin 0.7, AST 86 H D, ALT 15, Alkaline Phosphatase 174 H D, Lactate Dehydrogenase 817 H, Total Creatine Kinase 350 H, CK-MB (CK-2) 1.9, CK-MB (CK-2 ) % Cancelled, Troponin I < 0.01, Total Protein 7.7, Albumin 3.2, Globulin 4.6, Albumin/Globulin Ratio 0.7 L 08/07/17 09:30: PT 16.3 H, INR 1.41 H, APTT 42.8 H 08/07/17 09:30: WBC 35.0 H* D, RBC 4.19, Hgb 12.1, Hct 37.6, MCV 89.7, MCH 28.9 , MCHC 32.2, RDW 14.4, Plt Count 410, MPV 9.6, Gran % 94.8 H, Lymph % (Auto) 3.4 L, [place] % (Auto) 1.7, Eos % (Auto) 0.0 L, Baso % (Auto) 0.1, Gran # 33.12 H , Lymph # (Auto) 1.2, [place] # (Auto) 0.6, Eos # (Auto) 0.0, Baso # (Auto) 0.04, Neutrophils % (Manual) 92 H, Band Neutrophils % 3 H, Lymphocytes % (Manual) 4 L , Monocytes % (Manual) 1, Platelet Evaluation Normal, Anisocytosis (manual) Slight, ESR 124 H - RAD Interpretation Radiology Orders: 08/07/17 07:35 HEAD W/O CONTRAST [CT] Stat CHEST PORTABLE [RAD] Stat Formwork Carpenter: Radiologist - Medication Orders Current Medication Orders: Acetaminophen (Tylenol 325mg Tab) 650 mg PO Q6H PRN PRN Reason: Fever >100.4 F Albuterol Sulfate (Albuterol 0.083% Inhal Kerri (2.5 Mg/3 Ml) Ud) 2.5 mg IH Q2H PRN PRN Reason: Shortness of Breath Aspirin (Ecotrin) 81 mg PO DAILY [facility] Last Admin: 08/08/17 10:11 Dose: Not Given Non-Admin Reason: Patient Lethargic Atorvastatin Calcium (Lipitor) 10 mg PO DIN [facility] Carbidopa/Levodopa (Sinemet Cr) 1 tab PO DAILY [facility] Last Admin: 08/08/17 10:12 Dose: Not Given Non-Admin Reason: Patient Lethargic Collagenase (Santyl) 0 gm TOP DAILY [facility] Last Admin: 08/08/17 10:12 Dose: 1 applic Heparin Sodium (Porcine) (Heparin) 5,000 units SC Q12 [facility] PRN Reason: Protocol Last Admin: 08/08/17 09:52 Dose: 5,000 units Subcutaneous Administrations Document 08/08/17 09:52 KMS (Rec: 08/08/17 09:[id number]) Charges for Administration # of Subcutaneous Administrations 1 Meropenem/Sodium Chloride (Meropenem 1g/Ns 100ml Ivpb) 1 gm in 100 mls @ 100 mls/hr IVPB Q12 [facility] PRN Reason: Protocol Last Admin: 08/08/17 09:54 Dose: 100 mls/hr eMAR Start Stop Document 08/08/17 09:54 KMS (Rec: 08/08/17 09:54 [id number]) Intravenous Solution Start Date 08/08/17 Start Time 09:54 End Date 08/08/17 End time 11:24 Total Infusion Time 90 Dextrose/Sodium Chloride (Dextrose 5%/0.45% Ns 1000 Ml) 1,000 mls @ 100 mls/hr IV .Q10H [facility] Losartan Potassium (Cozaar) 50 mg PO DAILY [facility] Memantine (Namenda) 5 mg PO BID [facility] Last Admin: 08/08/17 10:11 Dose: Not Given Non-Admin Reason: Patient Lethargic Multivitamins/Minerals (Therapeutic-M Tab) 1 tab PO 0800 [facility] Last Admin: 08/08/17 08:00 Dose: Not Given Non-Admin Reason: Patient Lethargic Pantoprazole Sodium (Protonix Inj) 40 mg IVP DAILY [facility] Last Admin: 08/08/17 09:55 Dose: 40 mg IVP Administration Document 08/08/17 09:55 KMS (Rec: 08/08/17 09:55 [id number]) Charges for Administration # of IVP Administrations 1 Zinc Sulfate (Zinc Sulfate 220 Mg Cap) 220 mg PO DAILY [facility] Last Admin: 08/08/17 10:13 Dose: Not Given Non-Admin Reason: Patient Lethargic Discontinued Medications Vancomycin HCl (Vancomycin 1gm) 1 gm in 250 mls @ 167 mls/hr IVPB STAT STA PRN Reason: Protocol Stop: 08/07/17 09:06 Last Admin: 08/07/17 12:03 Dose: 167 mls/hr eMAR Start Stop Document 08/07/17 12:03 CONSUMER LOAN SPECIALIST (Rec: 08/07/17 12:07 CONSUMER LOAN SPECIALIST [id number]) Intravenous Solution Start Date 08/07/17 Start Time 12:07 End Date 08/07/17 End time 13:37 Total Infusion Time 90 Piperacillin Sod/Tazobactam Sod (Zosyn 3.375 In Ns 100ml) 100 mls @ 200 mls/hr IVPB STAT STA PRN Reason: Protocol Stop: 08/07/17 08:06 Last Admin: 08/07/17 10:31 Dose: 200 mls/hr eMAR Start Stop Document 08/07/17 10:31 CON[employer] LOAN SPECIALIST (Rec: 08/07/17 10:32 [id number] Intravenous Solution Start Date 08/07/17 Start Time 10:32 End Date 08/07/17 End time 11:02 Total Infusion Time 30 Sodium Chloride (Sodium Chloride 0.9%) 500 mls @ 999 mls/hr IV .Q31M STA Stop: 08/07/17 08:20 Last Admin: 08/07/17 10:32 Dose: 999 mls/hr eMAR Start Stop Document 08/07/17 10:32 [facility] (Rec: 08/07/17 10:33 [id number][facility] Intravenous Solution Start Date 08/07/17 Start Time 10:33 End Date 08/07/17 End time 11:02 Total Infusion Time 29 Sodium Chloride (Sodium Chloride 0.9%) 1,000 mls @ 100 mls/hr IV .Q10H [facility] Last Admin: 08/08/17 10:13 Dose: 100 mls/hr eMAR Start Stop Document 08/08/17 10:13 KM (Rec: 08/08/17 10:13 KMS [id number]) Intravenous Solution Start Date 08/08/17 Start Time 10:13 Sodium Chloride (Sodium Chloride 0.9%) 500 mls @ 999 mls/hr IV .Q31M STA Stop: 08/07/17 13:34 Last Admin: 08/07/17 13:44 Dose: 999 mls/hr eMAR Start Stop Document 08/07/17 13:44 [facility] (Rec: 08/07/17 13:44 [id number]) Intravenous Solution Start Date 08/07/17 Start Time 13:44 End Date 08/07/17 End time 14:44 Total Infusion Time 60 Potassium Chloride (Potassium Chloride 10 Meq/100 Ml) 10 meq in 100 mls @ 50 mls/hr IVPB ONCE ONE Stop: 08/07/17 16:53 Last Admin: 08/07/17 16:18 Dose: 50 mls/hr eMAR Start Stop Document 08/07/17 16:18 KMS (Rec: 08/07/17 16:18 KMS [id number]) Intravenous Solution Start Date 08/07/17 Start Time 16:18 End Date 08/07/17 End time 18:18 Total Infusion Time 120 Potassium Chloride (Potassium Chloride 10 Meq/100 Ml) 10 meq in 100 mls @ 50 mls/hr IVPB ONCE ONE Stop: 08/08/17 10:37 Last Admin: 08/08/17 09:53 Dose: 50 mls/hr eMAR Start Stop Document 08/08/17 09:53 KMS (Rec: 08/08/17 09:53 KMS [id number]) Intravenous Solution Start Date 08/08/17 Start Time 09:53 End Date 08/08/17 End time 11:53 Total Infusion Time 120 Potassium Chloride (Potassium Chloride 10 Meq/100 Ml) 10 meq in 100 mls @ 50 mls/hr IVPB ONCE ONE Stop: 08/08/17 10:37 Pneumococcal Polyvalent Vaccine (Pneumovax 23 Vaccine) 0.5 ml IM .ONCE ONE Stop: 08/07/17 17:37 - PA / DOCTOR OF NAPRAPATHY / Resident Statement MD/DO has examined the patient and agrees with the treatment plan. - Scribe Statement The provider has reviewed the documentation as recorded by the Josephibjayant Fernandez. All medical record entries made by the Josephibjayant were at my direction and personally dictated by me. I have reviewed the chart and agree that the record accurately reflects my personal performance of the history, physical exam, medical decision making, and the department course for this patient. I have also personally directed, reviewed, and agree with the discharge instructions and disposition. Disposition/Present on Arrival - Present on Arrival Any Indicators Present on Arrival: No History of DVT/PE: No History of Uncontrolled Diabetes: No Urinary Catheter: No History of Decub. Ulcer: No History Surgical Site Infection Following: None - Disposition Have Diagnosis and Disposition been Completed?: Yes Diagnosis: Altered mental status, Sepsis Disposition: HOSPITALIZED Disposition Time: 10:00 Condition: FAIR
[2017-08-07] MEDS ORDERED: Sodium Chloride 0.9% 500 ML IV STA ×2 (07:50→13:04)
[2017-08-07 09:54] LABS: VENOUS BLOOD GAS BASE EXCESS 3.6 mmol/L (0.0-2.0); VENOUS BLOOD GAS PO2 27 mm/Hg (30-55); VENOUS BLOOD PH 7.37 (7.32-7.43)
[2017-08-07 09:57] LABS: BASO # 0.04 K/mm3 (0.0-2.0); BASO % 0.1 % (0.0-3.0); GRAN # 33.12 (1.4-6.5); GRAN % 94.8 % (50.0-68.0); HEMOGLOBIN 12.1 g/dL (12.0-16.0); LYMPH # 1.2 (1.2-3.4); LYMPH % 3.4 % (22.0-35.0); MEAN CELL VOLUME 89.7 fl (80.0-105.0); MEAN CORPUSCULAR HEMOGLOBIN 28.9 pg (25.0-35.0); MEAN CORPUSCULAR HGB CONC 32.2 g/dl (31.0-37.0); MEAN PLATELET VOLUME 9.6 fl (7.0-11.0); MONO # 0.6 (0.1-0.6); MONO % 1.7 % (1.0-6.0); PLATELET COUNT 410 10^3/uL (120.0-450.0); RBC 4.19 10^6/uL (3.5-6.1); RED CELL DISTRIBUTION WIDTH 14.4 % (11.5-14.5)
--- NOTE | 2017-08-07 10:08 | RAD ---
HISTORY: Weakness COMPARISON: 05/21/2017. FINDINGS: LUNGS: The lungs are well inflated. There is atelectasis/scarring in the lower lobes. No focal consolidation. PLEURA: No significant pleural effusion identified, no pneumothorax apparent. CARDIOVASCULAR: The heart is normal in size. Atherosclerotic aortic arch calcifications are present. OSSEOUS STRUCTURES: No significant abnormalities. VISUALIZED UPPER ABDOMEN: Normal. OTHER FINDINGS: None. IMPRESSION: No active pulmonary disease.
[2017-08-07 10:15] LABS: ALB/GLOB RATIO 0.7 (1.1-1.8); ALBUMIN 3.2 g/dL (3.0-4.8); ALT/SGPT 15 U/L (7-56); AST/SGOT 86 U/L (14-36); BLOOD UREA NITROGEN 42 mg/dL (7-21); CALCIUM 9.1 mg/dL (8.4-10.5); GFR AFRICAN-AMERICAN 47; GFR NON-AFRICAN AMERICAN 39; INR 1.41 (0.93-1.08); MAGNESIUM 2.4 mg/dL (1.7-2.2); PARTIAL THROMBOPLASTIN TIME 42.8 Seconds (25.1-36.5); PROTHROMBIN TIME 16.3 SECONDS (9.4-12.5)
--- NOTE | 2017-08-07 10:16 | CT ---
PROCEDURE: CT HEAD WITHOUT CONTRAST. HISTORY: Altered mental status COMPARISON: 05/22/2017. TECHNIQUE: Axial computed tomography images were obtained through the head/brain without intravenous contrast. Radiation dose: Total exam DLP = 681.32 mGy-cm. This CT exam was performed using one or more of the following dose reduction techniques: Automated exposure control, adjustment of the mA and/or kV according to patient size, and/or use of iterative reconstruction technique. FINDINGS: HEMORRHAGE: No intracranial hemorrhage. BRAIN: Again seen is cystic encephalomalacia in the left anterior temporal lobe and mild ex vacuo dilatation of the temporal horn. There are moderate chronic microangiopathic changes. There is no mass, mass effect or abnormal extra-axial fluid collection. VENTRICLES: There is mild global parenchymal volume loss and proportionate enlargement of the ventricles and cortical sulci. CALVARIUM: Unremarkable. PARANASAL SINUSES: Predominantly clear. MASTOID AIR CELLS: Predominantly clear. OTHER FINDINGS: None. IMPRESSION: No acute intracranial abnormality. Moderate chronic microangiopathic changes and mild age-related global parenchymal volume loss.
[2017-08-07 10:19] LABS: TROPONIN I < 0.01 ng/mL
[2017-08-07 10:30] LABS: BAND 3 % (0-2); LYMPHOCYTE 4 % (22.0-35.0); MONOCYTE 1 % (1.0-6.0); NEUTROPHIL 92 % (50.0-70.0)
[2017-08-07 10:31] LABS: ANISOCYTOSIS SLIGHT
[2017-08-07 10:32] LABS: PLATELET ESTIMATE NORMAL (NORMAL)
[2017-08-07 10:40] LABS: CK-MB 1.9 ng/mL (0.0-3.6)
[2017-08-07] MEDS ORDERED: Albuterol 0.083% Inhal Sol (2.5 mg/3 mL) UD IH PRN (11:24)
[2017-08-07 11:35] LABS: PH,URINE 5.5 (4.7-8.0); URINE BILIRUBIN NEGATIVE (NEGATIVE); URINE BLOOD TRACE-INTACT (NEGATIVE); URINE GLUCOSE (UA) 250 mg/dL (NEGATIVE); URINE LEUKOCYTE ESTERASE NEGATIVE Leu/uL (NEGATIVE); URINE NITRATE NEGATIVE (NEGATIVE); URINE PROTEIN 30 mg/dL (<30 mg/dL); URINE UROBILINOGEN 0.2 E.U./dL (<1 E.U./dL)
[2017-08-07 11:36] LABS: URINE APPEARANCE CLEAR (CLEAR); URINE COLOR YELLOW (YELLOW)
[2017-08-07 11:38] LABS: URINE BACTERIA MANY (NEG); URINE WBC 0 - 2 /hpf (0-6)
[2017-08-07 11:39] LABS: URINE AMORPHOUS SEDIMENT FEW; URINE COARSE GRANULAR CAST TRACE /hpf (0-2)
[2017-08-07] MEDS: Sodium Chloride 0.9% 1,000 ML IV SCH ×2 (12:07→22:39)
[2017-08-07 12:52] LABS: VENOUS BLOOD GAS BASE EXCESS 2.8 mmol/L (0.0-2.0); VENOUS BLOOD GAS PO2 70 mm/Hg (30-55); VENOUS BLOOD PH 7.39 (7.32-7.43)
--- NOTE | 2017-08-07 13:14 | CP.PCM.HP ---
<CherylValeri - Last Filed: 08/07/17 14:16> History of Present Illness - History of Present Illness History of Present Illness: H&P for Hospitalist, Curry Luna PGY2 This is an 87yo female with past medical history of Parkinson's, HTN, HLD, TIA who came to ED for AMS x 1 day. As per family, patient has been having subjective fevers and sweats for 1 week. The patient has noted to have sacral decubitus ulcer. She saw her PMD, Dr. Desouza who put who on Cefuroxime 500mg BID and has been on it for 1 week for her ulcer. Since then, the patient has not been feeling well. She has been lethargic with poor PO intake. As per family , who is at bedside, said her baseline mentation is A&O x 1, but has been lethargic and sleeping all day. Patient is resting in bed and arousable and following commands, but not answering to questions. DEBBI could not be obtained. Past medical history: Dementia, Parkinson's, HTN, HLD, TIA, Chronic low back pain Past surgical history: Eyelid surgery Home meds: Hydralazine 10mg QID, ASA 81mg, Sinement 50/200 1 tab daily, Losartan 50mg daily, Namenda 5mg BID, Simvastatin 20mg daily Allergies: NKDA Social Hx: Denied tobacco, alcohol and illicit drug use; Lives with family PMD: Dr. Desouza [facility] Present on Admission - Present on Admission Any Indicators Present on Admission: Yes Decubitus Ulcer Present: Yes Decubitus Ulcer Stage: Unstageable Review of Systems - Review of Systems All systems: reviewed and no additional remarkable complaints except Review of Systems: Pt lethargic. ROS could not be obtained. As per family, patient was having subjective fevers, sweating and poor po intake. Past Patient History - Infectious Disease Hx of Infectious Diseases: None - Past Social History Smoking Status: Never Smoked - CARDIAC Hx Hypertension: Yes - PULMONARY Hx Respiratory Disorders: No - NEUROLOGICAL Hx Neurological Disorder: Yes Hx Parkinson's Disease: Yes - HEENT Hx HEENT Problems: Yes (eyeglasses) Other/Comment: eye sx fatty tissue removed from both eyelids - RENAL Hx Chronic Kidney Disease: No - ENDOCRINE/METABOLIC Hx Endocrine Disorders: No - HEMATOLOGICAL/ONCOLOGICAL Hx Blood Disorders: No - INTEGUMENTARY Hx Dermatological Problems: No - MUSCULOSKELETAL/RHEUMATOLOGICAL Hx Falls: No - GASTROINTESTINAL Hx Gastrointestinal Disorders: No - GENITOURINARY/GYNECOLOGICAL Hx Genitourinary Disorders: No - PSYCHIATRIC Hx Psychophysiologic Disorder: No Hx Substance Use: No - SURGICAL HISTORY Other/Comment: eye surgeryfatty tissue removed from both eyelids - ANESTHESIA Hx Anesthesia Reactions: No Meds Allergies/Adverse Reactions: Allergies Allergy/AdvReac Type Severity Reaction Status Date / Time No Known Allergies Allergy Verified 05/21/17 11:09 Physical Exam - Constitutional Appears: No Acute Distress - Head Exam Head Exam: ATRAUMATIC, NORMAL INSPECTION, NORMOCEPHALIC - Eye Exam Eye Exam: PERRL Pupil Exam: NORMAL ACCOMODATION, PERRL - ENT Exam ENT Exam: Mucous Membranes Dry - Respiratory Exam Respiratory Exam: Clear to Auscultation Bilateral, NORMAL BREATHING PATTERN. absent: Rales, Rhonchi, Wheezes - Cardiovascular Exam Cardiovascular Exam: REGULAR RHYTHM, +S1, +S2. absent: Gallop, Rubs, Systolic Murmur - GI/Abdominal Exam GI & Abdominal Exam: Normal Bowel Sounds, Soft, Tenderness. absent: Mass, Rebound, Rigid - Extremities Exam Extremities exam: Negative for: calf tenderness, pedal edema Additional comments: R heel bed sore - Back Exam Additional comments: sacral decubitus ulcer- unstageable - Neurological Exam Neurological exam: CN II-XII Intact - Skin Skin Exam: Dry, Warm Results - Vital Signs Recent Vital Signs: Last Vital Signs Temp 97.8 F 08/07/17 07:12 Pulse 95 H 08/07/17 07:09 Resp 18 08/07/17 07:09 BP 128/80 08/07/17 07:09 Pulse Ox 97 08/07/17 07:09 - Labs Result Diagrams: 08/07/17 09:30 08/07/17 09:30 Labs: Laboratory Results - last 24 hr 08/07/17 08/07/17 11:00 12:45 pO2 70 H VBG pH 7.39 VBG pCO2 47.0 VBG HCO3 28.5 H VBG Total CO2 29.9 H VBG O2 Sat (Calc) 94.8 H VBG Base Excess 2.8 H VBG Potassium 3.6 Sodium 153.0 H Chloride 118.0 H Glucose 184 H Lactate 3.2 H FiO2 21.0 Venous Blood Potassium 3.6 Urine Color Yellow Urine Appearance Clear Urine pH 5.5 Ur Specific [place] 1.025 Urine Protein 30 H Urine Glucose (UA) 250 H Urine Ketones Negative Urine Blood Trace-intact H Urine Nitrate Negative Urine Bilirubin Negative Urine Urobilinogen 0.2 Ur Leukocyte Esterase Negative Urine RBC 2 - 5 Urine WBC 0 - 2 Ur Epithelial Cells 6 - 8 Amorphous Sediment Few Urine Bacteria Many Coarse Granular Casts Trace H Urine Other Uyeast Assessment & Plan - Assessment and Plan (Free Text) Assessment: This is an 87yo female with past medical history of Parkinson's, HTN, HLD, TIA admitted for sepsis secondary to sacral decubitus ulcer as well as hypernatremia secondary to poor PO intake. Plan: 1. Sepsis - secondary to sacral decubitus ulcer unstageable - Lactate: 3.2 - ID consulted- recommended Merrem and Vanc - Surgery consulted for wound debridement - Pt passed bedside swallow-NPO for now- will start diet once more awake - NS@100 - will check for flu - PCT, wound culture, blood culture pending - Multivitamin, Zinc - Tylenol prn fever 2. LEONARDA and Hypernatremia - Secondary to poor PO intake - Will continue NS@100 - Cr: 1.3- will continue to monitor 3. HTN - BP normal - Will hold BP meds for now (Losartan and Hydralazine) 4. HLD - Continue ASA and Lipitor 5. Parkinson's - Sinemet, Namenda - PT eval GI ppx: Protonix DVT ppx: SCDs Case seen, discussed and reviewed with attending. Curry Luna PGY2 - Date & Time Date: 08/07/17 Time: 14:51 <Bill Ruiz - Last Filed: 08/08/17 17:17> Results - Vital Signs Recent Vital Signs: Last Vital Signs Temp 98.4 F 08/08/17 12:00 Pulse 90 08/08/17 09:00 Resp 19 08/08/17 12:00 BP 116/65 08/08/17 12:00 Pulse Ox 97 08/08/17 09:00 - Labs Result Diagrams: 08/08/17 06:30 08/08/17 06:30 Labs: Laboratory Results - last 24 hr 02/12/18 02/13/18 02/13/18 12:35 06:30 06:30 WBC 25.4 H* D RBC 3.71 Hgb 10.2 L Hct 32.9 L MCV 88.7 MCH 27.5 MCHC 31.0 RDW 14.6 H Plt Count 369 MPV 9.7 Gran % 92.2 H Lymph % (Auto) 5.6 L [place] % (Auto) 2.1 Eos % (Auto) 0.0 L Baso % (Auto) 0.1 Gran # 23.39 H Lymph # (Auto) 1.4 [place] # (Auto) 0.5 Eos # (Auto) 0.0 Baso # (Auto) 0.03 Sodium 158 H* Potassium 3.2 L Chloride 121 H Carbon Dioxide 25 Anion Gap 15 BUN 38 H Creatinine 1.0 Est GFR ( Amer) > 60 Est GFR (Non-Af Amer) 53 Random Glucose 152 H Serum Osmolality Calcium 8.4 Total Bilirubin 0.4 AST 60 H D ALT 23 Alkaline Phosphatase 125 Total Protein 6.2 Albumin 2.4 L Globulin 3.8 Albumin/Globulin Ratio 0.6 L Procalcitonin 1.87 H 08/08/17 12:00 WBC RBC Hgb Hct MCV MCH MCHC RDW Plt Count MPV Gran % Lymph % (Auto) [place] % (Auto) Eos % (Auto) Baso % (Auto) Gran # Lymph # (Auto) [place] # (Auto) Eos # (Auto) Baso # (Auto) Sodium Potassium Chloride Carbon Dioxide Anion Gap BUN Creatinine Est GFR ( Amer) Est GFR (Non-Af Amer) Random Glucose Serum Osmolality 339 H Calcium Total Bilirubin AST ALT Alkaline Phosphatase Total Protein Albumin Globulin Albumin/Globulin Ratio Procalcitonin Attending/Attestation - Attestation I have personally seen and examined this patient.: Yes I have fully participated in the care of the patient.: Yes I have reviewed all pertinent clinical information: Yes Notes (Text): I have seen and examined the patient at bedside. Agree with the above note with the following additions/ exceptions: Briefly this is 87 year old female with history of Parkinson's, advanced dementia, HTN, HLD, TIA who was admitted for AMS. Family also reports fever, chills, diaphoresis and found to have sacral decubitus ulcer (unstageable) which is most likely the source of fever. Will do panculture. Will check procal, blood culture, urine culture. Start meropenem and vancomycin. Will consult ID and surgery. She also has LEONARDA, dehydration and hypernatremia. Will start IVF. Will consult palliative care. Prior to admission , she needed assistance with ADL's and IADL's. Upon discharge patient will follow up with Dr Carter.
[2017-08-07] MEDS: Meropenem 1g/NS 100mL IVPB 1 GM/100 ML PIGGYBACK IVPB SCH (13:40)
[2017-08-07] MEDS ORDERED: Albuterol 0.083% Inhal Sol (2.5 mg/3 mL) UD IH SCH (14:00)
--- NOTE | 2017-08-07 14:22 | PCM.SEPTIC ---
Sepsis Progress Note - Reassessment Type Date of Evaluation: 08/07/17 Time of Evaluation: 14:20 Reassessment Type: Non-invasive reassessment - Non Invasive Reassessment Were the most recent vital sign reviewed: Yes Vital Sign (Latest): Temp Pulse Resp BP Pulse Ox 97.8 F 95 H 18 128/80 97 08/07/17 07:12 08/07/17 07:09 08/07/17 07:09 08/07/17 07:09 08/07/17 07:09 Cardiovascular: Yes: Regular Rate, Rhythm Respiratory: Yes: Normal Breath Sounds. No: Crackles, Rhonchi, Wheezing Capillary Refill: Normal (Less than 2 sec) Pulses: Normal Posterior Tibialis Skin: Warm, Dry
--- NOTE | 2017-08-07 15:08 | CARD ---
APPROVED REPORT EKG Measurement Heart [id number] <Conclusion> Normal sinus rhythm NSSTW changes
--- NOTE | 2017-08-07 15:37 | CP.PCM.PN ---
Objective - Vital Signs/Intake and Output Vital Signs (last 24 hours): Temp Pulse Resp BP Pulse Ox 98.9 F 89 18 117/52 L 96 08/07/17 10:20 08/07/17 14:00 08/07/17 14:00 08/07/17 14:00 08/07/17 14:00 - Medications Medications: Current Medications Acetaminophen (Tylenol 650 Mg Supp) 650 mg RC Q6H PRN PRN Reason: Fever >100.4 F Albuterol Sulfate (Albuterol 0.083% Inhal Kerri (2.5 Mg/3 Ml) Ud) 2.5 mg IH Q2H PRN PRN Reason: Shortness of Breath Aspirin (Ecotrin) 81 mg PO DAILY [facility] Atorvastatin Calcium (Lipitor) 10 mg PO DIN [facility] Carbidopa/Levodopa (Sinemet Cr) 1 tab PO DAILY [facility] Heparin Sodium (Porcine) (Heparin) 5,000 units SC Q12 [facility] PRN Reason: Protocol Sodium Chloride (Sodium Chloride 0.9%) 1,000 mls @ 100 mls/hr IV .Q10H [facility] Last Admin: 08/07/17 12:07 Dose: 100 mls/hr Meropenem/Sodium Chloride (Meropenem 1g/Ns 100ml Ivpb) 1 gm in 100 mls @ 100 mls/hr IVPB Q12 [facility] PRN Reason: Protocol Last Admin: 08/07/17 13:40 Dose: 100 mls/hr Potassium Chloride (Potassium Chloride 10 Meq/100 Ml) 10 meq in 100 mls @ 50 mls/hr IVPB ONCE ONE Stop: 08/07/17 16:53 Losartan Potassium (Cozaar) 50 mg PO DAILY [facility] Memantine (Namenda) 5 mg PO BID [facility] Multivitamins/Minerals (Therapeutic-M Tab) 1 tab PO 0800 [facility] Pantoprazole Sodium (Protonix Inj) 40 mg IVP DAILY [facility] Zinc Sulfate (Zinc Sulfate 220 Mg Cap) 220 mg PO DAILY [facility] - Labs Labs: PT 16.3 SECONDS (9.4-12.5) H 08/07/17 09:30 INR 1.41 (0.93-1.08) H 08/07/17 09:30 APTT 42.8 Seconds (25.1-36.5) H 08/07/17 09:30
--- NOTE | 2017-08-07 15:40 | CP.PCM.CON ---
<Marcus Valderrama Vikas - Last Filed: 08/07/17 17:01> History of Present Illness - History of Present Illness History of Present Illness: Surgery consult note for Dr. Guzman - Marcus Valderrama DO, PGY - 1 Reason For Consult: Sacral Decubitus Ulcer HPI: 87 year old female with a past medical history of HTN, HLD, TIA and Parkinson's presents with altered mental status X 1 day. Surgery was consulted for evaluation of a sacral decubitus ulcer. Patient history is limited 2/2 mental status. Patient's primary doctor gave her cefuroxime 500 bid for the ulcer about a week ago, but patient has since become lethargic and has been sleeping much of the day (per chart review and per family). Past medical history: Dementia, Parkinson's, HTN, HLD, TIA, Chronic low back pain Past surgical history: Eyelid surgery Home meds: Hydralazine 10mg QID, ASA 81mg, Sinement 50/200 1 tab daily, Losartan 50mg daily, Namenda 5mg BID, Simvastatin 20mg daily Allergies: NKDA Social Hx: Denied tobacco, alcohol and illicit drug use; Lives with family PMD: Dr. Desouza Pharm: [facility] Review of Systems: Limited 2/2 patient's mental status. Past Patient History - Infectious Disease Hx of Infectious Diseases: None - Past Social History Smoking Status: Never Smoked - CARDIAC Hx Hypertension: Yes - PULMONARY Hx Respiratory Disorders: No - NEUROLOGICAL Hx Neurological Disorder: Yes Hx Parkinson's Disease: Yes - HEENT Hx HEENT Problems: Yes (eyeglasses) Other/Comment: eye sx fatty tissue removed from both eyelids - RENAL Hx Chronic Kidney Disease: No - ENDOCRINE/METABOLIC Hx Endocrine Disorders: No - HEMATOLOGICAL/ONCOLOGICAL Hx Blood Disorders: No - INTEGUMENTARY Hx Dermatological Problems: No - MUSCULOSKELETAL/RHEUMATOLOGICAL Hx Falls: No - GASTROINTESTINAL Hx Gastrointestinal Disorders: No - GENITOURINARY/GYNECOLOGICAL Hx Genitourinary Disorders: No - PSYCHIATRIC Hx Psychophysiologic Disorder: No Hx Substance Use: No - SURGICAL HISTORY Other/Comment: eye surgeryfatty tissue removed from both eyelids - ANESTHESIA Hx Anesthesia Reactions: No Meds Allergies/Adverse Reactions: Allergies Allergy/AdvReac Type Severity Reaction Status Date / Time No Known Allergies Allergy Verified 05/21/17 11:09 - Medications Medications: Current Medications Acetaminophen (Tylenol 325mg Tab) 650 mg PO Q6H PRN PRN Reason: Fever >100.4 F Albuterol Sulfate (Albuterol 0.083% Inhal Kerri (2.5 Mg/3 Ml) Ud) 2.5 mg IH Q2H PRN PRN Reason: Shortness of Breath Aspirin (Ecotrin) 81 mg PO DAILY [facility] Atorvastatin Calcium (Lipitor) 10 mg PO DIN [facility] Carbidopa/Levodopa (Sinemet Cr) 1 tab PO DAILY [facility] Heparin Sodium (Porcine) (Heparin) 5,000 units SC Q12 [facility] PRN Reason: Protocol Sodium Chloride (Sodium Chloride 0.9%) 1,000 mls @ 100 mls/hr IV .Q10H [facility] Last Admin: 08/07/17 12:07 Dose: 100 mls/hr Meropenem/Sodium Chloride (Meropenem 1g/Ns 100ml Ivpb) 1 gm in 100 mls @ 100 mls/hr IVPB Q12 [facility] PRN Reason: Protocol Last Admin: 08/07/17 13:40 Dose: 100 mls/hr Potassium Chloride (Potassium Chloride 10 Meq/100 Ml) 10 meq in 100 mls @ 50 mls/hr IVPB ONCE ONE Stop: 08/07/17 16:53 Losartan Potassium (Cozaar) 50 mg PO DAILY [facility] Memantine (Namenda) 5 mg PO BID [facility] Multivitamins/Minerals (Therapeutic-M Tab) 1 tab PO 0800 [facility] Pantoprazole Sodium (Protonix Inj) 40 mg IVP DAILY [facility] Zinc Sulfate (Zinc Sulfate 220 Mg Cap) 220 mg PO DAILY [facility] Physical Exam - Additional Findings Additional findings: Physical Exam: Vital Signs as below Const'l: awake alert & oriented x 1, no acute distress Head/Neck: neck supple, no jvd, trachea midline, carotid midline, no cervical/head mass Eyes: pupils equally reactive to light and accommodation, nonicteric sclera, extraocular intact ENT: auditory acuity grossly intact, throat not congested, no nasal deformity Cardio: regular rate, regular rhythm, no murmurs rubs gallops, no carotid bruit, normal s1, s2 Pulm: no accessory muscle use, equal normal breath sounds bilaterally, clear to ausculation bilaterally Abd: soft non tender non-distended, normal bowel sounds x 4 quadrants, no palpable masses Derm: +Patient has an unstageable decubitus ulcer in the sacral and lower lumbar area (L4-S2 region) Extr: no edema, no cyanosis, no calf tenderness, no lesions, no varicosities Neuro: cranial nerves II-XII grossly intact, upper extremity and lower extremity 5/5 muscle strength bilaterally, no loss of sensation in upper extremities, lower extremities bilaterally Results - Vital Signs Recent Vital Signs: Last Vital Signs Temp 98.9 F 08/07/17 10:20 Pulse 89 08/07/17 14:00 Resp 18 08/07/17 14:00 BP 117/52 L 08/07/17 14:00 Pulse Ox 96 08/07/17 14:00 - Labs Result Diagrams: 08/07/17 09:30 08/07/17 09:30 Labs: Laboratory Results - last 24 hr 08/07/17 08/07/17 08/07/17 11:00 12:45 13:00 pO2 70 H VBG pH 7.39 VBG pCO2 47.0 VBG HCO3 28.5 H VBG Total CO2 29.9 H VBG O2 Sat (Calc) 94.8 H VBG Base Excess 2.8 H VBG Potassium 3.6 Sodium 153.0 H Chloride 118.0 H Glucose 184 H Lactate 3.2 H FiO2 21.0 Phosphorus TSH 3rd Generation 2.86 Venous Blood Potassium 3.6 Urine Color Yellow Urine Appearance Clear Urine pH 5.5 Ur Specific [place] 1.025 Urine Protein 30 H Urine Glucose (UA) 250 H Urine Ketones Negative Urine Blood Trace-intact H Urine Nitrate Negative Urine Bilirubin Negative Urine Urobilinogen 0.2 Ur Leukocyte Esterase Negative Urine RBC 2 - 5 Urine WBC 0 - 2 Ur Epithelial Cells 6 - 8 Amorphous Sediment Few Urine Bacteria Many Coarse Granular Casts Trace H Urine Other Uyeast 08/07/17 13:15 pO2 VBG pH VBG pCO2 VBG HCO3 VBG Total CO2 VBG O2 Sat (Calc) VBG Base Excess VBG Potassium Sodium Chloride Glucose Lactate FiO2 Phosphorus 4.0 TSH 3rd Generation Venous Blood Potassium Urine Color Urine Appearance Urine pH Ur Specific [place] Urine Protein Urine Glucose (UA) Urine Ketones Urine Blood Urine Nitrate Urine Bilirubin Urine Urobilinogen Ur Leukocyte Esterase Urine RBC Urine WBC Ur Epithelial Cells Amorphous Sediment Urine Bacteria Coarse Granular Casts Urine Other Assessment & Plan - Assessment and Plan (Free Text) Assessment: Assessment and Plan 85 year old female with past medical history of Parkinson's, HTN, HLD, and TIA is presenting with unstageable sacral decubitus ulcer in the L4-S2 region s/p being put on Cefuroxime for one week. Patient was septic on admission, with SIRS criteria of Tachycardia and elevated WBC count. Plan - F/u wound culture - Pain control - Wound care, dressing changes - OR for debridement - Turn Q2 - Santyl with Optiform <Edilson Guzman - Last Filed: 08/10/17 21:11> Meds - Medications Medications: Current Medications Acetaminophen (Tylenol 325mg Tab) 650 mg PO Q6H PRN PRN Reason: Fever >100.4 F Albuterol Sulfate (Albuterol 0.083% Inhal Kerri (2.5 Mg/3 Ml) Ud) 2.5 mg IH Q2H PRN PRN Reason: Shortness of Breath Aspirin (Ecotrin) 81 mg PO DAILY [facility] Last Admin: 08/08/17 10:11 Dose: Not Given Atorvastatin Calcium (Lipitor) 10 mg PO DIN [facility] Last Admin: 08/10/17 17:44 Dose: 10 mg Carbidopa/Levodopa (Sinemet Cr) 1 tab PO DAILY [facility] Last Admin: 08/10/17 09:54 Dose: Not Given Collagenase (Santyl) 0 gm TOP DAILY [facility] Last Admin: 08/10/17 09:54 Dose: Not Given Heparin Sodium (Porcine) (Heparin) 5,000 units SC Q12 [facility] PRN Reason: Protocol Last Admin: 08/10/17 21:02 Dose: 5,000 units Meropenem/Sodium Chloride (Meropenem 1g/Ns 100ml Ivpb) 1 gm in 100 mls @ 100 mls/hr IVPB Q12 [facility] PRN Reason: Protocol Last Admin: 08/10/17 21:02 Dose: 100 mls/hr Potassium Phosphate 15 mmole/ (Dextrose) 1,005 mls @ 100 mls/hr IV .Q10H3M [facility] Last Admin: 08/10/17 17:39 Dose: 100 mls/hr Losartan Potassium (Cozaar) 50 mg PO DAILY [facility] Memantine (Namenda) 5 mg PO BID [facility] Last Admin: 08/10/17 17:44 Dose: 5 mg Morphine Sulfate (Morphine) 2 mg IVP Q4H PRN PRN Reason: Pain, severe (8-10) Multivitamins/Minerals (Therapeutic-M Tab) 1 tab PO 0800 [facility] Last Admin: 08/10/17 08:27 Dose: Not Given Pantoprazole Sodium (Protonix Inj) 40 mg IVP DAILY [facility] Last Admin: 08/10/17 09:18 Dose: 40 mg Zinc Sulfate (Zinc Sulfate 220 Mg Cap) 220 mg PO DAILY [facility] Last Admin: 08/10/17 09:54 Dose: Not Given Results - Vital Signs Recent Vital Signs: Last Vital Signs Temp 98.4 F 08/10/17 18:00 Pulse 86 08/10/17 18:00 Resp 21 08/10/17 18:00 BP 124/69 08/10/17 18:00 Pulse Ox 100 08/10/17 18:00 - Labs Result Diagrams: 08/10/17 06:00 08/10/17 06:00 Labs: Laboratory Results - last 24 hr 08/09/17 08/10/17 08/10/17 12:30 05:58 06:00 WBC 25.8 H* RBC 3.35 L Hgb 9.3 L Hct 29.9 L MCV 89.3 MCH 27.8 MCHC 31.1 RDW 15.0 H Plt Count 388 MPV 9.7 Gran % 89.7 H Lymph % (Auto) 8.2 L [place] % (Auto) 1.7 Eos % (Auto) 0.3 L Baso % (Auto) 0.1 Gran # 23.12 H Lymph # (Auto) 2.1 [place] # (Auto) 0.4 Eos # (Auto) 0.1 Baso # (Auto) 0.02 Sodium Potassium Chloride Carbon Dioxide Anion Gap BUN Creatinine Est GFR ( Amer) Est GFR (Non-Af Amer) POC Glucose (mg/dL) 199 H Random Glucose Calcium Phosphorus Magnesium Total Bilirubin AST ALT Alkaline Phosphatase Total Protein Albumin Globulin Albumin/Globulin Ratio Urine Osmolality 851 Influenza Typ A,B (EIA) 08/10/17 08/10/17 08/10/17 06:00 07:30 10:04 WBC RBC Hgb Hct MCV MCH MCHC RDW Plt Count MPV Gran % Lymph % (Auto) [place] % (Auto) Eos % (Auto) Baso % (Auto) Gran # Lymph # (Auto) [place] # (Auto) Eos # (Auto) Baso # (Auto) Sodium 150 H Potassium 3.7 Chloride 117 H Carbon Dioxide 25 Anion Gap 11 BUN 27 H Creatinine 0.8 Est GFR ( Amer) > 60 Est GFR (Non-Af Amer) > 60 POC Glucose (mg/dL) 150 H Random Glucose 188 H Calcium 8.5 Phosphorus 2.4 L Magnesium 2.0 Total Bilirubin 0.2 AST 31 ALT 33 Alkaline Phosphatase 111 Total Protein 5.5 L Albumin 2.1 L Globulin 3.4 Albumin/Globulin Ratio 0.6 L Urine Osmolality Influenza Typ A,B (EIA) Negative for flu a/b Attending/Attestation - Attestation I have personally seen and examined this patient.: Yes I have fully participated in the care of the patient.: Yes I have reviewed all pertinent clinical information: Yes Notes (Text): Pt was seen and examined at bedside Agree with above note and assessment Pt with Stage 4 Sacral decubitus ulcer Labs reviewed Ass: Stage 4 Sacral decubitus ulcer Plan : Wound Debridement IV antibiotics Consent c.w current mx Plan d.w primary team in detail Risk and benefit explained in detail
--- NOTE | 2017-08-07 17:24 | CP.PCM.CON ---
History of Present Illness - History of Present Illness History of Present Illness: 87 year old female with PMH of Parkinson's disease, history of TIA, HTN, dyslipidemia, decubitus ulcer, dementia, history of eyelid surgery was brought in by family to [facility] because of decreased appetite, confusion, and weakness for the past 2-3 days. The patient has baseline confusion as per family but she is more confused and lethargic this time. They did not note any fevers, no convulsions, no vomiting, no diarrhea, no loss of consciousness. Full review of systems is unobtainable because of the patient's mental status. The patient is noted to have a sacral decubitus ulcer and was given antibiotics (cefuroxime) for this for about a week. The family notes that foul smell emanates from the ulcer. In the ED, the patient was noted to have a WBC count of 35k. Infectious Diseases consult is requested to further evaluate and manage. Review of Systems - Review of Systems All systems: reviewed and no additional remarkable complaints except (as per hPI ) Past Patient History - Infectious Disease Hx of Infectious Diseases: None - Past Social History Smoking Status: Never Smoked - CARDIAC Hx Hypertension: Yes - PULMONARY Hx Respiratory Disorders: No - NEUROLOGICAL Hx Neurological Disorder: Yes Hx Parkinson's Disease: Yes - HEENT Hx HEENT Problems: Yes (eyeglasses) Other/Comment: eye sx fatty tissue removed from both eyelids - RENAL Hx Chronic Kidney Disease: No - ENDOCRINE/METABOLIC Hx Endocrine Disorders: No - HEMATOLOGICAL/ONCOLOGICAL Hx Blood Disorders: No - INTEGUMENTARY Hx Dermatological Problems: No - MUSCULOSKELETAL/RHEUMATOLOGICAL Hx Falls: No - GASTROINTESTINAL Hx Gastrointestinal Disorders: No - GENITOURINARY/GYNECOLOGICAL Hx Genitourinary Disorders: No - PSYCHIATRIC Hx Psychophysiologic Disorder: No Hx Substance Use: No - SURGICAL HISTORY Other/Comment: eye surgeryfatty tissue removed from both eyelids - ANESTHESIA Hx Anesthesia Reactions: No Meds Allergies/Adverse Reactions: Allergies Allergy/AdvReac Type Severity Reaction Status Date / Time No Known Allergies Allergy Verified 05/21/17 11:09 - Medications Medications: Current Medications Acetaminophen (Tylenol 325mg Tab) 650 mg PO Q6H PRN PRN Reason: Fever >100.4 F Albuterol Sulfate (Albuterol 0.083% Inhal Kerri (2.5 Mg/3 Ml) Ud) 2.5 mg IH Q2H PRN PRN Reason: Shortness of Breath Albuterol Sulfate (Albuterol 0.083% Inhal Kerri (2.5 Mg/3 Ml) Ud) 2.5 mg IH [id number] [facility] Sodium Chloride (Sodium Chloride 0.9%) 1,000 mls @ 100 mls/hr IV .Q10H [facility] Pantoprazole Sodium (Protonix Inj) 40 mg IVP DAILY [facility] Physical Exam - Constitutional Appears: Other (lethargic) - Head Exam Head Exam: NORMAL INSPECTION - Respiratory Exam Respiratory Exam: Decreased Breath Sounds - Cardiovascular Exam Cardiovascular Exam: +S1, +S2 - GI/Abdominal Exam GI & Abdominal Exam: Soft. absent: Tenderness Additional comments: unstageable sacral decubitus ulcer with foul smell and areas of necrosis Results - Vital Signs Recent Vital Signs: Last Vital Signs Temp 97.8 F 08/07/17 07:12 Pulse 95 H 08/07/17 07:09 Resp 18 08/07/17 07:09 BP 128/80 08/07/17 07:09 Pulse Ox 97 08/07/17 07:09 - Labs Result Diagrams: 08/07/17 09:30 08/07/17 09:30 Labs: Laboratory Results - last 24 hr 08/07/17 11:00 Urine Color Yellow Urine Appearance Clear Urine pH 5.5 Ur Specific [place] 1.025 Urine Protein 30 H Urine Glucose (UA) 250 H Urine Ketones Negative Urine Blood Trace-intact H Urine Nitrate Negative Urine Bilirubin Negative Urine Urobilinogen 0.2 Ur Leukocyte Esterase Negative Urine RBC 2 - 5 Urine WBC 0 - 2 Ur Epithelial Cells 6 - 8 Amorphous Sediment Few Urine Bacteria Many Coarse Granular Casts Trace H Urine Other Uyeast Assessment & Plan - Assessment and Plan (Free Text) Plan: Assessment Systemic Inflammatory response Syndrome, consider severe sepsis with acute renal failure due to severe infection of sacral decubitus ulcer, R/O osteomyelitis Parkinson's disease history of TIA HTN dyslipidemia decubitus ulcer dementia history of eyelid surgery Plan Started the patient on a dose of IV Vanco and begun Merrem pending blood cx, wound cx, urine cx follow up surgery evaluation and plans for debridement, and colostomy should also be considered will monitor clinically
[2017-08-07 17:36] VITALS: BMI 21.7
[2017-08-07] MEDS ORDERED: Pneumococcal 23-Valent Vaccine IM ONE (17:36)
[2017-08-07] MEDS ORDERED: Influenza Vaccine 60 mcg/0.5 mL SYR (4YR UP) IM ONE (17:36)
[2017-08-07] MEDS: Collagenase 250 Units/gm Ointment(30 gm) TOP SCH (18:36)
[2017-08-08] MEDS: Meropenem 1g/NS 100mL IVPB 1 GM/100 ML PIGGYBACK IVPB SCH ×3 (00:01→21:27)
[2017-08-08 07:19] LABS: BASO # 0.03 K/mm3 (0.0-2.0); BASO % 0.1 % (0.0-3.0); GRAN # 23.39 (1.4-6.5); GRAN % 92.2 % (50.0-68.0); HEMOGLOBIN 10.2 g/dL (12.0-16.0); LYMPH # 1.4 (1.2-3.4); LYMPH % 5.6 % (22.0-35.0); MEAN CELL VOLUME 88.7 fl (80.0-105.0); MEAN CORPUSCULAR HEMOGLOBIN 27.5 pg (25.0-35.0); MEAN PLATELET VOLUME 9.7 fl (7.0-11.0); MONO # 0.5 (0.1-0.6); MONO % 2.1 % (1.0-6.0); RBC 3.71 10^6/uL (3.5-6.1); RED CELL DISTRIBUTION WIDTH 14.6 % (11.5-14.5)
[2017-08-08] MEDS: Sodium Chloride 0.9% 1,000 ML IV SCH ×2 (07:30→10:13)
[2017-08-08 07:33] LABS: WHITE BLOOD COUNT 25.4 10^3/ul (4.5-11.0)
[2017-08-08] MEDS: Multivitamin With Minerals Tab PO SCH (08:00)
[2017-08-08 08:07] LABS: ALB/GLOB RATIO 0.6 (1.1-1.8); ALBUMIN 2.4 g/dL (3.0-4.8); ALT/SGPT 23 U/L (7-56); AST/SGOT 60 U/L (14-36); BLOOD UREA NITROGEN 38 mg/dL (7-21); CALCIUM 8.4 mg/dL (8.4-10.5); GFR AFRICAN-AMERICAN > 60; GFR NON-AFRICAN AMERICAN 53
[2017-08-08] MEDS ORDERED: Potassium Chloride 40 mEq/30 ml LIQ UD PO ONE (08:12)
[2017-08-08] MEDS: Carbidopa/Levodopa 50/200 CR PO SCH (10:12)
[2017-08-08] MEDS: Collagenase 250 Units/gm Ointment(30 gm) TOP SCH ×2 (10:12→15:39)
--- NOTE | 2017-08-08 10:44 | CP.PCM.PN ---
<Ingris Ortiz - Last Filed: 08/08/17 19:21> Subjective - Date & Time of Evaluation Date of Evaluation: 08/08/17 Time of Evaluation: 07:00 - Subjective Subjective: Patient seen and examined at bedside this AM. Patient was awake but not interactive. Patient did not exibit any acute distress Objective - Vital Signs/Intake and Output Vital Signs (last 24 hours): Temp Pulse Resp BP Pulse Ox 98.3 F 91 H 19 109/59 L 96 08/08/17 06:00 08/08/17 06:00 08/08/17 06:00 08/08/17 06:00 08/08/17 06:00 Intake and Output: 08/08/17 08/08/17 06:59 18:59 Intake Total 1200 Output Total 1150 Balance 50 - Medications Medications: Current Medications Acetaminophen (Tylenol 325mg Tab) 650 mg PO Q6H PRN PRN Reason: Fever >100.4 F Albuterol Sulfate (Albuterol 0.083% Inhal Kerri (2.5 Mg/3 Ml) Ud) 2.5 mg IH Q2H PRN PRN Reason: Shortness of Breath Aspirin (Ecotrin) 81 mg PO DAILY [facility] Last Admin: 08/08/17 10:11 Dose: Not Given Atorvastatin Calcium (Lipitor) 10 mg PO DIN [facility] Carbidopa/Levodopa (Sinemet Cr) 1 tab PO DAILY [facility] Last Admin: 08/08/17 10:12 Dose: Not Given Collagenase (Santyl) 0 gm TOP DAILY [facility] Last Admin: 08/08/17 10:12 Dose: 1 applic Heparin Sodium (Porcine) (Heparin) 5,000 units SC Q12 [facility] PRN Reason: Protocol Last Admin: 08/08/17 09:52 Dose: 5,000 units Sodium Chloride (Sodium Chloride 0.9%) 1,000 mls @ 100 mls/hr IV .Q10H [facility] Last Admin: 08/08/17 10:13 Dose: 100 mls/hr Meropenem/Sodium Chloride (Meropenem 1g/Ns 100ml Ivpb) 1 gm in 100 mls @ 100 mls/hr IVPB Q12 [facility] PRN Reason: Protocol Last Admin: 08/08/17 09:54 Dose: 100 mls/hr Losartan Potassium (Cozaar) 50 mg PO DAILY [facility] Memantine (Namenda) 5 mg PO BID [facility] Last Admin: 08/08/17 10:11 Dose: Not Given Multivitamins/Minerals (Therapeutic-M Tab) 1 tab PO 0800 [facility] Last Admin: 08/08/17 08:00 Dose: Not Given Pantoprazole Sodium (Protonix Inj) 40 mg IVP DAILY [facility] Last Admin: 08/08/17 09:55 Dose: 40 mg Zinc Sulfate (Zinc Sulfate 220 Mg Cap) 220 mg PO DAILY [facility] Last Admin: 08/08/17 10:13 Dose: Not Given - Labs Labs: 08/08/17 06:30 08/08/17 06:30 PT 16.3 SECONDS (9.4-12.5) H 08/07/17 09:30 INR 1.41 (0.93-1.08) H 08/07/17 09:30 APTT 42.8 Seconds (25.1-36.5) H 08/07/17 09:30 - Constitutional Appears: Non-toxic, No Acute Distress - Head Exam Head Exam: ATRAUMATIC, NORMOCEPHALIC - Eye Exam Eye Exam: Normal appearance. absent: Conjunctival injection, Scleral icterus - ENT Exam ENT Exam: Mucous Membranes Moist, Normal Oropharynx - Respiratory Exam Respiratory Exam: NORMAL BREATHING PATTERN. absent: Accessory Muscle Use, Respiratory Distress - GI/Abdominal Exam GI & Abdominal Exam: absent: Distended - Rectal Exam Additional comments: Stage 4 sacral decubitus ulcer with necrotic tissue and foul odor - Extremities Exam Extremities Exam: absent: Calf Tenderness, Pedal Edema - Neurological Exam Neurological Exam: Altered, Awake - Psychiatric Exam Psychiatric exam: Flat Affect - Skin Skin Exam: Dry, Intact (except as noted above), Normal Color, Warm Assessment and Plan - Assessment and Plan (Free Text) Assessment: 87F with stage 4 sacral decubitus ulcer Plan: OR on 08/09 for sacral decubitus ulcer debridement NPO aftermidnight antibiotics per ID medical management per primary PRN pain medication BID dressing changes with santtrinidad Discussed with Dr. Megan Ortiz, PGY2 <Edilson Guzman - Last Filed: 08/10/17 21:10> Objective - Vital Signs/Intake and Output Vital Signs (last 24 hours): Temp Pulse Resp BP Pulse Ox 98.4 F 86 21 124/69 100 08/10/17 18:00 08/10/17 18:00 08/10/17 18:00 08/10/17 18:00 08/10/17 18:00 - Medications Medications: Current Medications Acetaminophen (Tylenol 325mg Tab) 650 mg PO Q6H PRN PRN Reason: Fever >100.4 F Albuterol Sulfate (Albuterol 0.083% Inhal Kerri (2.5 Mg/3 Ml) Ud) 2.5 mg IH Q2H PRN PRN Reason: Shortness of Breath Aspirin (Ecotrin) 81 mg PO DAILY [facility] Last Admin: 08/08/17 10:11 Dose: Not Given Atorvastatin Calcium (Lipitor) 10 mg PO DIN [facility] Last Admin: 08/10/17 17:44 Dose: 10 mg Carbidopa/Levodopa (Sinemet Cr) 1 tab PO DAILY [facility] Last Admin: 08/10/17 09:54 Dose: Not Given Collagenase (Santyl) 0 gm TOP DAILY [facility] Last Admin: 08/10/17 09:54 Dose: Not Given Heparin Sodium (Porcine) (Heparin) 5,000 units SC Q12 [facility] PRN Reason: Protocol Last Admin: 08/10/17 21:02 Dose: 5,000 units Meropenem/Sodium Chloride (Meropenem 1g/Ns 100ml Ivpb) 1 gm in 100 mls @ 100 mls/hr IVPB Q12 [facility] PRN Reason: Protocol Last Admin: 08/10/17 21:02 Dose: 100 mls/hr Potassium Phosphate 15 mmole/ (Dextrose) 1,005 mls @ 100 mls/hr IV .Q10H3M [facility] Last Admin: 08/10/17 17:39 Dose: 100 mls/hr Losartan Potassium (Cozaar) 50 mg PO DAILY [facility] Memantine (Namenda) 5 mg PO BID [facility] Last Admin: 08/10/17 17:44 Dose: 5 mg Morphine Sulfate (Morphine) 2 mg IVP Q4H PRN PRN Reason: Pain, severe (8-10) Multivitamins/Minerals (Therapeutic-M Tab) 1 tab PO 0800 [facility] Last Admin: 08/10/17 08:27 Dose: Not Given Pantoprazole Sodium (Protonix Inj) 40 mg IVP DAILY [facility] Last Admin: 08/10/17 09:18 Dose: 40 mg Zinc Sulfate (Zinc Sulfate 220 Mg Cap) 220 mg PO DAILY [facility] Last Admin: 08/10/17 09:54 Dose: Not Given - Labs Labs: 08/10/17 06:00 08/10/17 06:00 PT 16.3 SECONDS (9.4-12.5) H 08/07/17 09:30 INR 1.41 (0.93-1.08) H 08/07/17 09:30 APTT 42.8 Seconds (25.1-36.5) H 08/07/17 09:30 Attending/Attestation - Attestation I have personally seen and examined this patient.: Yes I have fully participated in the care of the patient.: Yes I have reviewed all pertinent clinical information, including history, physical exam and plan: Yes Notes (Text): Pt was seen and examined at bedside Agree with above note and assessment Pt with Stage 4 sacral decubitus ulcer OR for Debridement IV antibiotics Consent NPO, IVF c.w current mx Plan d.w primary team in detail Risk and benefit explained in detail
[2017-08-08] MEDS ORDERED: Dextrose 5%/0.45% NS 1,000 ML IV SCH (11:00)
--- NOTE | 2017-08-08 13:39 | CP.PCM.CON ---
History of Present Illness - History of Present Illness History of Present Illness: Palliative consult requested by Dr Colby Cavanaugh Goals of care/advance care planning 87 year old female with hsitoy of Parkinson's disease,TIA HTN, HLD who prensented with altered mental status, weakness and decreased of 2 days duration. PMHx: Parkinson disease, HTA, HTN, HLD, chronic back pain. Social History: Non smoker, no alcohol or drug use. Lives with daughter. Family History: Non contributory. Advance Care Planning: The patient does not have ab Advanced Directive. Review of Systems: As per HPI, patient is altered unable to complete review. Past Patient History - Infectious Disease Hx of Infectious Diseases: None - Past Social History Smoking Status: Never Smoked - CARDIAC Hx Hypertension: Yes - PULMONARY Hx Respiratory Disorders: No - NEUROLOGICAL Hx Neurological Disorder: Yes Hx Parkinson's Disease: Yes - HEENT Hx HEENT Problems: Yes (eyeglasses) Other/Comment: eye sx fatty tissue removed from both eyelids - RENAL Hx Chronic Kidney Disease: No - ENDOCRINE/METABOLIC Hx Endocrine Disorders: No - HEMATOLOGICAL/ONCOLOGICAL Hx Blood Disorders: No - INTEGUMENTARY Hx Dermatological Problems: No - MUSCULOSKELETAL/RHEUMATOLOGICAL Hx Falls: No - GASTROINTESTINAL Hx Gastrointestinal Disorders: No - GENITOURINARY/GYNECOLOGICAL Hx Genitourinary Disorders: No - PSYCHIATRIC Hx Psychophysiologic Disorder: No Hx Substance Use: No - SURGICAL HISTORY Other/Comment: eye surgeryfatty tissue removed from both eyelids - ANESTHESIA Hx Anesthesia Reactions: No Meds Allergies/Adverse Reactions: Allergies Allergy/AdvReac Type Severity Reaction Status Date / Time No Known Allergies Allergy Verified 05/21/17 11:09 - Medications Medications: Current Medications Acetaminophen (Tylenol 325mg Tab) 650 mg PO Q6H PRN PRN Reason: Fever >100.4 F Albuterol Sulfate (Albuterol 0.083% Inhal Kerri (2.5 Mg/3 Ml) Ud) 2.5 mg IH Q2H PRN PRN Reason: Shortness of Breath Aspirin (Ecotrin) 81 mg PO DAILY [facility] Last Admin: 08/08/17 10:11 Dose: Not Given Atorvastatin Calcium (Lipitor) 10 mg PO DIN [facility] Carbidopa/Levodopa (Sinemet Cr) 1 tab PO DAILY [facility] Last Admin: 08/08/17 10:12 Dose: Not Given Collagenase (Santyl) 0 gm TOP DAILY [facility] Last Admin: 08/08/17 10:12 Dose: 1 applic Heparin Sodium (Porcine) (Heparin) 5,000 units SC Q12 ELLE PRN Reason: Protocol Last Admin: 08/08/17 09:52 Dose: 5,000 units Meropenem/Sodium Chloride (Meropenem 1g/Ns 100ml Ivpb) 1 gm in 100 mls @ 100 mls/hr IVPB Q12 ELLE PRN Reason: Protocol Last Admin: 08/08/17 09:54 Dose: 100 mls/hr Potassium Chloride 20 meq/ (Dextrose) 1,010 mls @ 80 mls/hr IV .[id number] [facility] Losartan Potassium (Cozaar) 50 mg PO DAILY [facility] Memantine (Namenda) 5 mg PO BID [facility] Last Admin: 08/08/17 10:11 Dose: Not Given Multivitamins/Minerals (Therapeutic-M Tab) 1 tab PO 0800 [facility] Last Admin: 08/08/17 08:00 Dose: Not Given Pantoprazole Sodium (Protonix Inj) 40 mg IVP DAILY [facility] Last Admin: 08/08/17 09:55 Dose: 40 mg Zinc Sulfate (Zinc Sulfate 220 Mg Cap) 220 mg PO DAILY [facility] Last Admin: 08/08/17 10:13 Dose: Not Given Physical Exam - Constitutional Appears: Cachectic, Chronically Ill - Head Exam Head Exam: NORMAL INSPECTION - ENT Exam ENT Exam: Mucous Membranes Moist, Normal Oropharynx - Neck Exam Neck exam: Positive for: Normal Inspection - Respiratory Exam Respiratory Exam: Decreased Breath Sounds, NORMAL BREATHING PATTERN - Cardiovascular Exam Cardiovascular Exam: REGULAR RHYTHM, +S1, +S2 - GI/Abdominal Exam GI & Abdominal Exam: Normal Bowel Sounds, Soft Results - Vital Signs Recent Vital Signs: Last Vital Signs Temp 98.3 F 08/08/17 06:00 Pulse 91 H 08/08/17 06:00 Resp 19 08/08/17 06:00 BP 109/59 L 08/08/17 06:00 Pulse Ox 96 08/08/17 06:00 - Labs Result Diagrams: 08/08/17 06:30 08/08/17 06:30 Labs: Laboratory Results - last 24 hr 08/07/17 08/07/17 08/07/17 12:35 13:00 13:15 WBC RBC Hgb Hct MCV MCH MCHC RDW Plt Count MPV Gran % Lymph % (Auto) Cuming % (Auto) Eos % (Auto) Baso % (Auto) Gran # Lymph # (Auto) Cuming # (Auto) Eos # (Auto) Baso # (Auto) Sodium Potassium Chloride Carbon Dioxide Anion Gap BUN Creatinine Est GFR ( Amer) Est GFR (Non-Af Amer) Random Glucose Calcium Phosphorus 4.0 Total Bilirubin AST ALT Alkaline Phosphatase Total Protein Albumin Globulin Albumin/Globulin Ratio Procalcitonin 1.87 H TSH 3rd Generation 2.86 08/08/17 08/08/17 06:30 06:30 WBC 25.4 H* D RBC 3.71 Hgb 10.2 L Hct 32.9 L MCV 88.7 MCH 27.5 MCHC 31.0 RDW 14.6 H Plt Count 369 MPV 9.7 Gran % 92.2 H Lymph % (Auto) 5.6 L Cuming % (Auto) 2.1 Eos % (Auto) 0.0 L Baso % (Auto) 0.1 Gran # 23.39 H Lymph # (Auto) 1.4 Cuming # (Auto) 0.5 Eos # (Auto) 0.0 Baso # (Auto) 0.03 Sodium 158 H* Potassium 3.2 L Chloride 121 H Carbon Dioxide 25 Anion Gap 15 BUN 38 H Creatinine 1.0 Est GFR ( Amer) > 60 Est GFR (Non-Af Amer) 53 Random Glucose 152 H Calcium 8.4 Phosphorus Total Bilirubin 0.4 AST 60 H D ALT 23 Alkaline Phosphatase 125 Total Protein 6.2 Albumin 2.4 L Globulin 3.8 Albumin/Globulin Ratio 0.6 L Procalcitonin TSH 3rd Generation Assessment & Plan - Assessment and Plan (Free Text) Assessment: 87 year old female with history of Parkinson, TIA, dementia who is admitted with sepsis, unstageable decubiti ulcer of sacrum, leukocytosis. Patient very lethargic. Not communicative. She is scheduled for debridement of sacral wound tomorrow. VM left for son, intent to discus advance care planning and future goals of care Plan: Advance care planning
--- NOTE | 2017-08-08 13:44 | CP.PCM.PN ---
<Andrey Leiva - Last Filed: 08/08/17 15:54> Subjective - Date & Time of Evaluation Date of Evaluation: 08/08/17 Time of Evaluation: 07:50 - Subjective Subjective: Medicine progress note for Dr. Bill Ruiz Hospitalist Service Patient seen and examined at bedside. Patient remains lethargic. When asked how she was doing, she nodded her head. When asked if she had any pain, patient responded in a low voice "I don't know." Full ROS cannot be obtained. Per phone call with the patient's son, at baseline she will communicate if there is something that she needs or if something is bothering her. Per son, she has mild dementia at baseline. Objective - Vital Signs/Intake and Output Vital Signs (last 24 hours): Temp Pulse Resp BP Pulse Ox 98.3 F 91 H 19 109/59 L 96 08/08/17 06:00 08/08/17 06:00 08/08/17 06:00 08/08/17 06:00 08/08/17 06:00 Intake and Output: 08/08/17 08/08/17 06:59 18:59 Intake Total 1200 Output Total 1150 Balance 50 - Medications Medications: Current Medications Acetaminophen (Tylenol 325mg Tab) 650 mg PO Q6H PRN PRN Reason: Fever >100.4 F Albuterol Sulfate (Albuterol 0.083% Inhal Kerri (2.5 Mg/3 Ml) Ud) 2.5 mg IH Q2H PRN PRN Reason: Shortness of Breath Aspirin (Ecotrin) 81 mg PO DAILY [facility] Last Admin: 08/08/17 10:11 Dose: Not Given Atorvastatin Calcium (Lipitor) 10 mg PO DIN [facility] Carbidopa/Levodopa (Sinemet Cr) 1 tab PO DAILY [facility] Last Admin: 08/08/17 10:12 Dose: Not Given Collagenase (Santyl) 0 gm TOP DAILY [facility] [place] Last Admin: 08/08/17 10:12 Dose: 1 applic Heparin Sodium (Porcine) (Heparin) 5,000 units SC Q12 ELLE PRN Reason: Protocol Last Admin: 08/08/17 09:52 Dose: 5,000 units Meropenem/Sodium Chloride (Meropenem 1g/Ns 100ml Ivpb) 1 gm in 100 mls @ 100 mls/hr IVPB Q12 ELLE PRN Reason: Protocol Last Admin: 08/08/17 09:54 Dose: 100 mls/hr Potassium Chloride 20 meq/ (Dextrose) 1,010 mls @ 80 mls/hr IV .[id number] [facility] [place] Losartan Potassium (Cozaar) 50 mg PO DAILY [facility] Memantine (Namenda) 5 mg PO BID [facility] Last Admin: 08/08/17 10:11 Dose: Not Given Multivitamins/Minerals (Therapeutic-M Tab) 1 tab PO 0800 [facility] [place] Last Admin: 08/08/17 08:00 Dose: Not Given Pantoprazole Sodium (Protonix Inj) 40 mg IVP DAILY [facility] [place] Last Admin: 08/08/17 09:55 Dose: 40 mg Zinc Sulfate (Zinc Sulfate 220 Mg Cap) 220 mg PO DAILY [facility] Last Admin: 08/08/17 10:13 Dose: Not Given - Labs Labs: 08/08/17 06:30 08/08/17 06:30 PT 16.3 SECONDS (9.4-12.5) H 08/07/17 09:30 INR 1.41 (0.93-1.08) H 08/07/17 09:30 APTT 42.8 Seconds (25.1-36.5) H 08/07/17 09:30 - Constitutional Appears: No Acute Distress, Chronically Ill - Head Exam Head Exam: ATRAUMATIC, NORMOCEPHALIC - Eye Exam Eye Exam: Normal appearance - ENT Exam ENT Exam: Mucous Membranes Dry - Respiratory Exam Respiratory Exam: Clear to Ausculation Bilateral, NORMAL BREATHING PATTERN. absent: Rales, Rhonchi, Wheezes - Cardiovascular Exam Cardiovascular Exam: REGULAR RHYTHM, +S1, +S2 - GI/Abdominal Exam GI & Abdominal Exam: Soft, Normal Bowel Sounds. absent: Distended, Tenderness - Extremities Exam Extremities Exam: absent: Pedal Edema Additional comments: Bed sore on the right heel - Back Exam Additional comments: unstageable decubitus ulcer - Neurological Exam Neurological Exam: Alert, Awake, Oriented x3 - Skin Skin Exam: Dry, Warm Assessment and Plan - Assessment and Plan (Free Text) Plan: This is an 87yo female with past medical history of Parkinson's, HTN, HLD, TIA admitted for sepsis secondary to sacral decubitus ulcer as well as hypernatremia secondary to poor PO intake. Plan for debridement tomorrow. 1. Sepsis - secondary to sacral decubitus ulcer unstageable - Lactate: 3.2 - ID consulted- Daniel on board - Surgery consulted for wound debridement. Scheduled for 08/09/17. - Pt passed bedside swallow-NPO for now- will start diet once more awake - D5 half NS@100 mL/hour - will check for flu - PCT, wound culture pending - Blood cultures with gram negative rods - Multivitamin, Zinc - Tylenol prn fever 2. LEONARDA and Hypernatremia - Secondary to poor PO intake - Will continue D5 half NS@100 - continue to monitor 3. HTN - BP normal - Will hold BP meds for now 4. HLD - Continue ASA and Lipitor 5. Parkinson's - Sinemet, Namenda - PT eval 6. Hypokalemia - repleted - continue to monitor GI ppx: Protonix DVT ppx: Heparin (held after midnight due to procedure) SCDs Disposition: Planned for debridement in the OR tomorrow. Patient's son Zack was spoken with over the phone and updated on patient's present situation. Discussed and seen with Dr. Bill Ruiz <Bill Ruiz - Last Filed: 08/09/17 18:39> Objective - Vital Signs/Intake and Output Vital Signs (last 24 hours): Temp Pulse Resp BP Pulse Ox 98.4 F 90 15 117/88 99 08/09/17 17:04 08/09/17 17:04 08/09/17 17:04 08/09/17 17:04 08/09/17 17:04 Intake and Output: 08/09/17 08/09/17 06:59 18:59 Intake Total 0 75 Output Total 100 Balance -100 75 - Medications Medications: Current Medications Acetaminophen (Tylenol 325mg Tab) 650 mg PO Q6H PRN PRN Reason: Fever >100.4 F Albuterol Sulfate (Albuterol 0.083% Inhal Kerri (2.5 Mg/3 Ml) Ud) 2.5 mg IH Q2H PRN PRN Reason: Shortness of Breath Aspirin (Ecotrin) 81 mg PO DAILY [facility] Last Admin: 08/08/17 10:11 Dose: Not Given Atorvastatin Calcium (Lipitor) 10 mg PO DIN [facility] [place] Last Admin: 08/09/17 17:21 Dose: Not Given Carbidopa/Levodopa (Sinemet Cr) 1 tab PO DAILY [facility] Last Admin: 08/09/17 09:24 Dose: Not Given Collagenase (Santyl) 0 gm TOP DAILY [facility] [place] Last Admin: 08/09/17 11:35 Dose: Not Given Heparin Sodium (Porcine) (Heparin) 5,000 units SC Q12 ELLE PRN Reason: Protocol Last Admin: 08/08/17 21:39 Dose: 5,000 units Meropenem/Sodium Chloride (Meropenem 1g/Ns 100ml Ivpb) 1 gm in 100 mls @ 100 mls/hr IVPB Q12 ELLE PRN Reason: Protocol Last Admin: 08/09/17 09:48 Dose: 100 mls/hr Potassium Chloride 10 meq/ (Dextrose) 1,005 mls @ 100 mls/hr IV .[id number] [facility] [place] Last Admin: 08/09/17 14:06 Dose: 100 mls/hr Sodium Chloride (Sodium Chloride 0.9%) 1,000 mls @ 75 mls/hr IV .[id number] [facility] Stop: 08/09/17 19:01 Losartan Potassium (Cozaar) 50 mg PO DAILY [facility] Memantine (Namenda) 5 mg PO BID [facility] Last Admin: 08/09/17 17:21 Dose: Not Given Morphine Sulfate (Morphine) 2 mg IVP Q4H PRN PRN Reason: Pain, severe (8-10) Multivitamins/Minerals (Therapeutic-M Tab) 1 tab PO 0800 [facility] [place] Last Admin: 08/09/17 08:25 Dose: Not Given Pantoprazole Sodium (Protonix Inj) 40 mg IVP DAILY [facility] Last Admin: 08/09/17 09:48 Dose: 40 mg Zinc Sulfate (Zinc Sulfate 220 Mg Cap) 220 mg PO DAILY [facility] Last Admin: 08/09/17 09:24 Dose: Not Given - Labs Labs: 08/09/17 06:30 08/09/17 06:30 PT 16.3 SECONDS (9.4-12.5) H 08/07/17 09:30 INR 1.41 (0.93-1.08) H 08/07/17 09:30 APTT 42.8 Seconds (25.1-36.5) H 08/07/17 09:30 Attending/Attestation - Attestation I have personally seen and examined this patient.: Yes I have fully participated in the care of the patient.: Yes I have reviewed all pertinent clinical information, including history, physical exam and plan: Yes Notes (Text): I have seen and examined the patient at bedside. Agree with the above note with the following additions/ exceptions: Briefly this is 87 year old female with history of Parkinson's, advanced dementia, HTN, HLD, TIA who was admitted for AMS. Family also reports fever, chills, diaphoresis and found to have sacral decubitus ulcer (unstageable) which is most likely the source of fever. Blood cultures are growing GNR. Wound and urine cultures pending. Patient still feels very weak and fatigued. Continue meropenem and vancomycin. ID, nephro and surgery consult appreciated. Patient is scheduled for sacral wound debridement in OR tomorrow. She also has LEONARDA, dehydration and hypernatremia. Continue hypotonic fluids. Continue to hold BP meds and keep NPO until patient is more awake, alert and passes swallow eval. Awaiting palliative care consult. Prior to admission, she needed assistance with ADL's and IADL's. Upon discharge patient will follow up with Dr Carter. Dr Bill Ruiz
[2017-08-08] MEDS: Lactated Ringer's 1,000 ML IV SCH (21:26)
--- NOTE | 2017-08-09 01:59 | CON ---
DATE: 08/08/2017 The patient is admitted for Dr. Ruiz. FAMILY PHYSICIAN: Codie Chowdary MD REFERRING MD: Dr. Ruiz. REASON FOR CONSULTATION: Evaluation of the patient with an elevated BUN, elevated sodium in the setting of an infected sacral decubitus, who is unknown to me. HISTORY OF PRESENT ILLNESS: The patient is an 87-year-old black female who has advanced dementia, she speaks a very little. History of Parkinson disease, history of hypertension, history of hyperlipidemia. The patient is admitted to the hospital with an altered mental status, hypernatremia, elevated BUN, mild elevation of creatinine and severe leukocytosis. The patient is found to have a large infected sacral decubitus stage IV. On admission, the patient's sodium level was 155, today is 158. Potassium level was 3.4, today is 3.2. Magnesium level was 2.4. BUN was 38, today 42 and on admission, her baseline BUN is less than 20. Creatinine was 1.3 on admission, today 1.0 which is at baseline levels. TSH level was normal. The patient's white blood cell count on admission was extremely elevated at 35,000. The patient had been started on empiric antibiotics. All cultures are pending. We are asked to evaluate the patient for her hypernatremia, prerenal azotemia and volume depletion. 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 MEDICATIONS AT HOME: Include that of hydralazine, simvastatin, Protonix, Namenda, losartan, cefuroxime, Sinemet, and baby aspirin. ALLERGIES: NO KNOWN ALLERGIES TO MEDICATIONS. CURRENT MEDICATIONS IN HOSPITAL: Include that of albuterol, losartan, D5 half-normal saline, Ecotrin, heparin, Lipitor, meropenem, Namenda, Protonix, Santyl, Sinemet, multivitamins, Tylenol, and zinc. SOCIAL HISTORY: From the chart, no history of cigarette smoking, no history of alcohol use. FAMILY HISTORY: Unobtainable from the patient. REVIEW OF SYSTEMS: Unobtainable from the patient. PHYSICAL EXAMINATION GENERAL: The patient is currently seen on 3-R. She is lying supine in bed. She is n.p.o. She remains on hypotonic IV fluid administration. She has an indwelling Farrar catheter. VITAL SIGNS: Blood pressure 109/59, pulse of 91, temperature 98.3 with a respiratory rate of 19, pulse ox is 96%. HEENT: Showed eyes to be closed. NECK: Supple with no neck vein distention. No thyromegaly, no lymphadenopathy, no bruits. CHEST: Clear to auscultation and percussion. No rales, no rhonchi or wheezing. CARDIOVASCULAR: Shows a regular rate and rhythm without murmurs, rubs or gallops noted. ABDOMEN: Soft. Bowel sounds normal. No rebound, guarding or masses. EXTREMITIES: Show no lower extremity cyanosis, clubbing or edema. Distal lower extremity pulses are 1 to 2+ bilaterally. : The patient has an indwelling Farrar catheter. BACK: Positive dressing over a large area covering a stage IV infected sacral decubitus. NEUROLOGIC: It was difficult to obtain as the patient is noncommunicative. IMAGING: Admitting head CT scan showed no acute changes. Admitting chest x-ray showed no acute pulmonary disease. Admitting EKG showed normal sinus rhythm with no acute ST or T-wave changes. LABORATORY DATA: CBC on admission; white blood cell count 35,000, today [id number] . Hemoglobin with hydration is down from 12.1-10.2. Platelet count is normal at 369,000. Chemistries; sodium today 158, up from 155. Potassium is low at 3.2. The patient received K riders earlier this morning. Chloride 121. BUN 38, down from 42; creatinine 1.3 yesterday, 1.0 today. Glucose is 152. Calcium 8.4, phosphorus 4.0, magnesium level is 2.4. Mild elevation of her AST. Otherwise liver enzymes are normal. Albumin is low at 2.4. Blood gas from yesterday showed a pH of 7.39, pO2 of 70 with a pCO2 of 30. Urine showed trace protein, 2-5 red blood cells, no significant white blood cells. Microbiology; blood cultures are negative at 24 hours. Decubitus gram stain initial result showed gram-negative rods and gram-positive cocci in clusters. ASSESSMENT: 1. Acute renal failure in a patient with no past history of chronic kidney disease. The patient is prerenal in nature. She is also hypernatremic, these all speaks for volume depletion and dehydration. I suggest placing the patient on hypotonic fluids without any saline at all. This will help correct her mild hypernatremia. She is currently n.p.o. so oral fluid hydration is possible. I will obtain a urine sodium and urine creatinine. In all likelihood of fractional secretion of sodium is low. 2. History of hypertension. Blood pressure medications are currently on hold. The patient remains borderline hypotensive. Once her BUN and creatinine fall to baseline range, it would be safe to give her back her angiotensin receptor dhaval. 3. History of Parkinson disease. The patient will continue present medication. 4. History of progressive dementia. This appears to be stable. The patient may be restarted back on medications. 5. Infected sacral decubitus. Cultures are pending. Gram stain initial report as noted above. The patient remains on empiric antibiotic therapy, white blood cell count is falling. 6. Hyperlipidemia. The patient was restarted back on statin therapy. 7. History of anemia. In all likelihood, we will continue her IV fluid hydration. Her hemoglobin will fall. I will check her iron levels, B12 and folate levels. PLAN: 1. Plan is outlined above. 2. Continue to monitor accurate I's and O's and daily labs. 3. Adjust antibiotics, pending final culture and sensitivities. 4. I expect her BUN and creatinine to return to baseline levels with appropriate hydration. 5. We will add potassium to her IV fluids. 6. For right now, a Farrar catheter in place. Thank you for letting us to partake and share in the care of your patient. Santos Friedman MD MTDDarien
[2017-08-09] MEDS: Collagenase 250 Units/gm Ointment(30 gm) TOP SCH ×2 (04:01→11:35)
--- NOTE | 2017-08-09 04:30 | PN ---
DATE: 08/08/2017 SUBJECTIVE: The patient is in bed in no acute distress, nontoxic. PHYSICAL EXAMINATION: VITAL SIGNS: Temperature is 98, blood pressure is 130/17, respiratory rate 18. HEENT: Unremarkable. NECK: Supple. LUNGS: Decreased breath sounds. HEART: Normal S1, S2. ABDOMEN: Soft. LABORATORY EXAMINATION: Reveals a white count of 25,000, hemoglobin of 10, platelets of 369. BUN of 38, creatinine of 1.0. Procalcitonin is 1.87. Urinalysis is noted. Microbiology reveals the blood cultures are gram-negative parker. Urine culture is gram-negative parker. Decubitus ulcer is gram-negative parker and gram-positive cocci. Review of orders reveals the patient to be on meropenem. ASSESSMENT/PLAN: This is an 87-year-old female who was seen early this morning in room 374, bed 2, with severe sepsis with gram-negative parker bacteremia and gram-negative rods in the urine culture with acute renal failure and sacral decubitus ulcer infection, Parkinson's, transient ischemic attack, hypertension, dyslipidemia. We will continue the patient on meropenem and local wound care pending identification and sensitivity of the gram-negative parker in the blood in the urine. The patient is also receiving local wound care and we will follow with you. Davy Casas MD
[2017-08-09] MEDS: Lactated Ringer's 1,000 ML IV SCH (07:04)
[2017-08-09 07:22] LABS: BASO # 0.03 K/mm3 (0.0-2.0); BASO % 0.1 % (0.0-3.0); EOS % 0.1 % (1.5-5.0); GRAN # 23.25 (1.4-6.5); GRAN % 91.6 % (50.0-68.0); LYMPH # 1.5 (1.2-3.4); LYMPH % 5.9 % (22.0-35.0); MEAN CELL VOLUME 89.1 fl (80.0-105.0); MEAN CORPUSCULAR HGB CONC 31.4 g/dl (31.0-37.0); MEAN PLATELET VOLUME 9.9 fl (7.0-11.0); MONO # 0.6 (0.1-0.6); MONO % 2.3 % (1.0-6.0); RBC 3.57 10^6/uL (3.5-6.1); RED CELL DISTRIBUTION WIDTH 14.7 % (11.5-14.5)
[2017-08-09 07:32] LABS: WHITE BLOOD COUNT 25.4 10^3/ul (4.5-11.0)
[2017-08-09 08:01] LABS: ALB/GLOB RATIO 0.6 (1.1-1.8); ALBUMIN 2.3 g/dL (3.0-4.8); ALT/SGPT 23 U/L (7-56); AST/SGOT 34 U/L (14-36); BLOOD UREA NITROGEN 35 mg/dL (7-21); CALCIUM 8.6 mg/dL (8.4-10.5); GFR AFRICAN-AMERICAN > 60; GFR NON-AFRICAN AMERICAN 60; MAGNESIUM 2.3 mg/dL (1.7-2.2)
[2017-08-09] MEDS: Multivitamin With Minerals Tab PO SCH (08:25)
[2017-08-09] MEDS: Carbidopa/Levodopa 50/200 CR PO SCH (09:24)
[2017-08-09] MEDS: Meropenem 1g/NS 100mL IVPB 1 GM/100 ML PIGGYBACK IVPB SCH ×2 (09:48→21:31)
[2017-08-09 13:27] LABS: CREATININE,RANDOM URINE 85 mg/dL
--- NOTE | 2017-08-09 13:45 | CP.PCM.PN ---
Subjective - Date & Time of Evaluation Date of Evaluation: 08/09/17 Time of Evaluation: 13:00 - Subjective Subjective: Somnolent. Objective - Vital Signs/Intake and Output Vital Signs (last 24 hours): Temp Pulse Resp BP Pulse Ox 98.4 F 90 18 150/82 98 08/09/17 12:00 08/09/17 12:00 08/09/17 12:00 08/09/17 12:00 08/09/17 12:00 Intake and Output: 08/09/17 08/09/17 06:59 18:59 Intake Total 0 Output Total 100 Balance -100 - Medications Medications: Current Medications Acetaminophen (Tylenol 325mg Tab) 650 mg PO Q6H PRN PRN Reason: Fever >100.4 F Albuterol Sulfate (Albuterol 0.083% Inhal Kerri (2.5 Mg/3 Ml) Ud) 2.5 mg IH Q2H PRN PRN Reason: Shortness of Breath Aspirin (Ecotrin) 81 mg PO DAILY [facility] Last Admin: 08/08/17 10:11 Dose: Not Given Atorvastatin Calcium (Lipitor) 10 mg PO DIN [facility] Last Admin: 08/08/17 17:20 Dose: Not Given Carbidopa/Levodopa (Sinemet Cr) 1 tab PO DAILY [facility] Last Admin: 08/09/17 09:24 Dose: Not Given Collagenase (Santyl) 0 gm TOP DAILY [facility] Last Admin: 08/09/17 11:35 Dose: Not Given Heparin Sodium (Porcine) (Heparin) 5,000 units SC Q12 ELLE PRN Reason: Protocol Last Admin: 08/08/17 21:39 Dose: 5,000 units Meropenem/Sodium Chloride (Meropenem 1g/Ns 100ml Ivpb) 1 gm in 100 mls @ 100 mls/hr IVPB Q12 ELLE PRN Reason: Protocol Last Admin: 08/09/17 09:48 Dose: 100 mls/hr Potassium Chloride 10 meq/ (Dextrose) 1,005 mls @ 100 mls/hr IV .Q10H3M [facility] Losartan Potassium (Cozaar) 50 mg PO DAILY [facility] Memantine (Namenda) 5 mg PO BID [facility] Last Admin: 08/09/17 09:24 Dose: Not Given Multivitamins/Minerals (Therapeutic-M Tab) 1 tab PO 0800 [facility] Last Admin: 02/14/18 08:25 Dose: Not Given Pantoprazole Sodium (Protonix Inj) 40 mg IVP DAILY [facility] Last Admin: 08/09/17 09:48 Dose: 40 mg Zinc Sulfate (Zinc Sulfate 220 Mg Cap) 220 mg PO DAILY [facility] Last Admin: 08/09/17 09:24 Dose: Not Given - Labs Labs: 08/09/17 06:30 08/09/17 06:30 PT 16.3 SECONDS (9.4-12.5) H 08/07/17 09:30 INR 1.41 (0.93-1.08) H 08/07/17 09:30 APTT 42.8 Seconds (25.1-36.5) H 08/07/17 09:30 - Constitutional Appears: No Acute Distress, Chronically Ill - Head Exam Head Exam: NORMOCEPHALIC - Eye Exam Eye Exam: Normal appearance, PERRL - ENT Exam ENT Exam: Mucous Membranes Moist - Respiratory Exam Respiratory Exam: Decreased Breath Sounds, NORMAL BREATHING PATTERN - Cardiovascular Exam Cardiovascular Exam: REGULAR RHYTHM, +S1, +S2 - GI/Abdominal Exam GI & Abdominal Exam: Soft, Hypoactive Bowel Sounds - Skin Skin Exam: Dry, Pallor Assessment and Plan - Assessment and Plan (Free Text) Assessment: 87 year old female admitted with history of dementia, Parkinson Disease, HTN, HLD who is admitted with altered mental status,sepsis, LEONARDA on chronic CKD, hypernatremia. I spoke with patients giuliano Montaño via phone. Son understands mother medical situation and guarded prognosis. Discussion regarding future goals of care ensued. Explained that even with aggressive medical interventions, his mother may not rebound and return to prior performance status. Also explained that if her condition continued to decline that further conversation regarding whether to continue life prolonging measures or transition to comfort care would have to be established. I specifically asked if his mother has an Advanced Directive. Son states that she does and that he would bring a copy. Psychosocial support given. Son and I to meet within the next few days to discuss goals of care and advance care planning. Time spent in goals of care discussion, 30 minutes Plan: Palliative support in establishing goals of care and advance care planning
[2017-08-09] MEDS ORDERED: Lidocaine 1% Inj (20ml) ONE (15:43)
[2017-08-09] MEDS ORDERED: Bupivacaine 0.5% Inj(30mL) ONE (15:43)
[2017-08-09] MEDS ORDERED: Propofol 10 mg/ml Inj (20 ML) ONE (15:48)
[2017-08-09] MEDS ORDERED: Lidocaine 2% Inj (20ml) ONE (15:58)
[2017-08-09] MEDS ORDERED: Liquid Adhesive TOP ONE (16:29)
--- NOTE | 2017-08-09 16:49 | PN ---
DATE: 08/09/2017 SUBJECTIVE: The patient is seen lying in bed. She is unresponsive. Family member is at bedside. PHYSICAL EXAMINATION: GENERAL: Elderly lady, lying in bed. VITAL SIGNS: Blood pressure 150/82, heart rate 90, respiratory rate 18, temperature 98.4. HEENT: Normocephalic, atraumatic, positive pallor. NECK: Supple, no JVD. LUNGS: Bilateral equal air entry, bilateral equal expansion, no rales. CARDIAC: S1 and S2, regular rate and rhythm, no murmur, no rub. ABDOMEN: Obese, distended, soft, nontender, bowel sounds present. EXTREMITIES: No lower extremity edema. LABORATORY DATA: WBC 25, hemoglobin 10, hematocrit 32, platelets 423. Sodium 158, potassium 3.5, chloride 123, CO2 of 25, BUN 35, creatinine 0.9, glucose 149, calcium 8.6, phosphorus 3.0, magnesium 2.3, albumin 2.3. Urine culture, E-coli. Wound culture, E-coli plus Enterococcus. Blood culture, gram-negative rods. CURRENT MEDICATIONS: Proventil inhaler, Cozaar 50, dextrose at 100, Ecotrin, heparin, Lipitor, meropenem 1 g q. 12, Namenda 5 b.i.d., Protonix, Sinemet, Tylenol. ASSESSMENT: 1. Severe hypernatremia, dehydration. 2. Hypokalemia. 3. Sepsis. 4. Gram-negative urinary tract infection and bacteremia. 5. Unstageable sacral ulcer. PLAN: 1. Continue hypotonic fluids. 2. Add potassium to IV fluids. 3. Continue antibiotics. 4. Monitor H and H. Sharonda Del Rio MD
--- NOTE | 2017-08-09 16:59 | PCM.SURG1 ---
Surgeon's Initial Post Op Note - Surgeon's Notes Surgeon: Dr. Guzman Consumer Experience Consultant: Ingris Ortiz PGY2 Type of Anesthesia: IV Sedation Pre-Operative Diagnosis: Stage 4 Sacral decubitus ulcer Operative Findings: Stage 4 sacral decubitus ulcer with necrotic tissue extending into the sacrum, perirectum, and distal into the left gluteus. Multiple pockets of purulent fluid. See full operative report Post-Operative Diagnosis: Stage 4 sacral decubitus ulcer, osteomyelitis of the sacrum, perirectal and gluteal abscess Operation Performed: Sharp and blunt debridement of stage 4 sacral decubitus ulcer, sacral debridement, incision and drainage of left gluteal and perirectal abscess. Wound vac placement Specimen/Specimens Removed: Wound cultures, debrided tissue Estimated Blood Loss: EBL {In ML}: 5 Blood Products Given: N/A Drains Used: Wound Vac (With surgicel in the wound bed) Date of Surgery/Procedure: 08/09/17 Time of Surgery/Procedure: 15:30
[2017-08-09] MEDS ORDERED: Sodium Chloride 0.9% 1,000 ML IV SCH (17:00)
[2017-08-09] MEDS ORDERED: Morphine 2 mg/ml ISec IVP PRN (17:06)
--- NOTE | 2017-08-09 17:51 | CP.PCM.PN ---
<Andrey Leiva S - Last Filed: 08/09/17 18:46> Subjective - Date & Time of Evaluation Date of Evaluation: 08/09/17 Time of Evaluation: 07:20 - Subjective Subjective: Medicine progress note for Dr. Bill Ruiz Hospitalist Service Patient seen and examined at bedside. Patient remains lethargic. She was arousable to stimuli minimally in the morning; however, on rounds she opened her eyes and spoke very briefly. ROS unable to ascertain due to present status. Objective - Vital Signs/Intake and Output Vital Signs (last 24 hours): Temp Pulse Resp BP Pulse Ox 98.4 F 90 15 117/88 99 08/09/17 17:04 08/09/17 17:04 08/09/17 17:04 08/09/17 17:04 08/09/17 17:04 Intake and Output: 08/09/17 08/09/17 06:59 18:59 Intake Total 0 75 Output Total 100 Balance -100 75 - Medications Medications: Current Medications Acetaminophen (Tylenol 325mg Tab) 650 mg PO Q6H PRN PRN Reason: Fever >100.4 F Albuterol Sulfate (Albuterol 0.083% Inhal Kerri (2.5 Mg/3 Ml) Ud) 2.5 mg IH Q2H PRN PRN Reason: Shortness of Breath Aspirin (Ecotrin) 81 mg PO DAILY [facility] Last Admin: 08/08/17 10:11 Dose: Not Given Atorvastatin Calcium (Lipitor) 10 mg PO DIN [facility] Last Admin: 08/09/17 17:21 Dose: Not Given Carbidopa/Levodopa (Sinemet Cr) 1 tab PO DAILY [facility] Last Admin: 08/09/17 09:24 Dose: Not Given Collagenase (Santyl) 0 gm TOP DAILY [facility] Last Admin: 08/09/17 11:35 Dose: Not Given Heparin Sodium (Porcine) (Heparin) 5,000 units SC Q12 ELLE PRN Reason: Protocol Last Admin: 08/08/17 21:39 Dose: 5,000 units Meropenem/Sodium Chloride (Meropenem 1g/Ns 100ml Ivpb) 1 gm in 100 mls @ 100 mls/hr IVPB Q12 ELLE PRN Reason: Protocol Last Admin: 08/09/17 09:48 Dose: 100 mls/hr Potassium Chloride 10 meq/ (Dextrose) 1,005 mls @ 100 mls/hr IV .Q10H3M [facility] Last Admin: 08/09/17 14:06 Dose: 100 mls/hr Sodium Chloride (Sodium Chloride 0.9%) 1,000 mls @ 75 mls/hr IV .Q01E95P [facility] Stop: 08/09/17 19:01 Losartan Potassium (Cozaar) 50 mg PO DAILY [facility] Memantine (Namenda) 5 mg PO BID [facility] Last Admin: 08/09/17 17:21 Dose: Not Given Morphine Sulfate (Morphine) 2 mg IVP Q4H PRN PRN Reason: Pain, severe (8-10) Multivitamins/Minerals (Therapeutic-M Tab) 1 tab PO 0800 [facility] Last Admin: 08/09/17 08:25 Dose: Not Given Pantoprazole Sodium (Protonix Inj) 40 mg IVP DAILY [facility] Last Admin: 08/09/17 09:48 Dose: 40 mg Zinc Sulfate (Zinc Sulfate 220 Mg Cap) 220 mg PO DAILY [facility] Last Admin: 08/09/17 09:24 Dose: Not Given - Labs Labs: 08/09/17 06:30 08/09/17 06:30 PT 16.3 SECONDS (9.4-12.5) H 08/07/17 09:30 INR 1.41 (0.93-1.08) H 08/07/17 09:30 APTT 42.8 Seconds (25.1-36.5) H 08/07/17 09:30 - Constitutional Appears: No Acute Distress, Chronically Ill - Head Exam Head Exam: ATRAUMATIC, NORMOCEPHALIC - Eye Exam Eye Exam: Normal appearance - ENT Exam ENT Exam: Mucous Membranes Dry - Respiratory Exam Respiratory Exam: Clear to Ausculation Bilateral, NORMAL BREATHING PATTERN. absent: Rales, Rhonchi, Wheezes - Cardiovascular Exam Cardiovascular Exam: REGULAR RHYTHM, +S1, +S2 - GI/Abdominal Exam GI & Abdominal Exam: Soft, Normal Bowel Sounds. absent: Distended, Tenderness - Extremities Exam Extremities Exam: absent: Pedal Edema Additional comments: Right heel bed sore - Back Exam Additional comments: unstageable decubitus ulcer - Neurological Exam Additional comments: Lethargic - Skin Skin Exam: Dry, Warm Assessment and Plan - Assessment and Plan (Free Text) Assessment: This is an 87yo female with past medical history of Parkinson's, HTN, HLD, TIA admitted for sepsis secondary to sacral decubitus ulcer as well as hypernatremia secondary to poor PO intake. Debridement performed in the OR on . Per report, Stage 4 sacral decubitus ulcer, osteomyelitis of the sacrum, perirectal and gluteal abscess. 1. Sepsis - secondary to sacral decubitus ulcer stage 4 per surgery with evidence of osteomyelitis of the sacrum, perirectal and gluteal abscess - Lactate: 3.2 - ID consulted- Merrem on board - Surgery consulted for wound debridement. - Pt passed bedside swallow-NPO for now- will start diet once more awake - D5 half NS@100 mL/hour - will check for flu - urine cultures grew E. coli - decubitus culture grew E.coli and E. faecalis - Blood cultures with gram negative rods - Multivitamin, Zinc - Tylenol prn fever 2. LEONARDA and Hypernatremia - Secondary to poor PO intake - Will continue D5 half NS@100 - continue to monitor 3. HTN - BP normal - Will hold BP meds for now 4. HLD - Continue ASA and Lipitor 5. Parkinson's - Sinemet, Namenda - PT eval 6. Hypokalemia - repleted - continue to monitor GI ppx: Protonix DVT ppx: Heparin (held due to procedure), SCDs Disposition: In the OR, Stage 4 sacral decubitus ulcer, osteomyelitis of the sacrum, perirectal and gluteal abscess was found. Follow up with palliative care. Patient does have an advanced directive which will be reviewed in future family meeting. Discussed and seen with Dr. Bill Ruiz <Bill Ruiz - Last Filed: 08/10/17 09:12> Objective - Vital Signs/Intake and Output Vital Signs (last 24 hours): Temp Pulse Resp BP Pulse Ox 99.1 F 88 19 123/64 100 08/10/17 06:00 08/10/17 06:00 08/10/17 06:00 08/10/17 06:00 08/10/17 06:00 Intake and Output: 08/10/17 08/10/17 06:59 18:59 Intake Total 1104 Balance 1104 - Medications Medications: Current Medications Acetaminophen (Tylenol 325mg Tab) 650 mg PO Q6H PRN PRN Reason: Fever >100.4 F Albuterol Sulfate (Albuterol 0.083% Inhal Kerri (2.5 Mg/3 Ml) Ud) 2.5 mg IH Q2H PRN PRN Reason: Shortness of Breath Aspirin (Ecotrin) 81 mg PO DAILY [facility] Last Admin: 08/08/17 10:11 Dose: Not Given Atorvastatin Calcium (Lipitor) 10 mg PO DIN [facility] Last Admin: 08/09/17 17:21 Dose: Not Given Carbidopa/Levodopa (Sinemet Cr) 1 tab PO DAILY [facility] Last Admin: 08/09/17 09:24 Dose: Not Given Collagenase (Santyl) 0 gm TOP DAILY [facility] Last Admin: 08/09/17 11:35 Dose: Not Given Heparin Sodium (Porcine) (Heparin) 5,000 units SC Q12 [facility]LE PRN Reason: Protocol Last Admin: 08/08/17 21:39 Dose: 5,000 units Meropenem/Sodium Chloride (Meropenem 1g/Ns 100ml Ivpb) 1 gm in 100 mls @ 100 mls/hr IVPB Q12 [facility] PRN Reason: Protocol Last Admin: 08/09/17 21:31 Dose: 100 mls/hr Potassium Chloride 10 meq/ (Dextrose) 1,005 mls @ 100 mls/hr IV .Q10H3M [facility] Last Admin: 08/10/17 01:25 Dose: 100 mls/hr Potassium Phosphate 15 mmole/ (Dextrose) 255 mls @ 42.5 mls/hr IVPB ONCE ONE Stop: 08/10/17 13:43 Losartan Potassium (Cozaar) 50 mg PO DAILY [facility] Memantine (Namenda) 5 mg PO BID [facility] Last Admin: 08/09/17 17:21 Dose: Not Given Morphine Sulfate (Morphine) 2 mg IVP Q4H PRN PRN Reason: Pain, severe (8-10) Multivitamins/Minerals (Therapeutic-M Tab) 1 tab PO 0800 [facility] Last Admin: 08/10/17 08:27 Dose: Not Given Pantoprazole Sodium (Protonix Inj) 40 mg IVP DAILY [facility] Last Admin: 08/09/17 09:48 Dose: 40 mg Zinc Sulfate (Zinc Sulfate 220 Mg Cap) 220 mg PO DAILY [facility] Last Admin: 08/09/17 09:24 Dose: Not Given - Labs Labs: 08/10/17 06:00 08/10/17 06:00 PT 16.3 SECONDS (9.4-12.5) H 08/07/17 09:30 INR 1.41 (0.93-1.08) H 08/07/17 09:30 APTT 42.8 Seconds (25.1-36.5) H 08/07/17 09:30 Attending/Attestation - Attestation I have personally seen and examined this patient.: Yes I have fully participated in the care of the patient.: Yes I have reviewed all pertinent clinical information, including history, physical exam and plan: Yes Notes (Text): I have seen and examined the patient at bedside. Agree with the above note with the following additions/ exceptions: Briefly this is 87 year old female with history of Parkinson's, advanced dementia, HTN, HLD, TIA who was admitted for AMS. Family also reports fever, chills, diaphoresis and found to have sacral decubitus ulcer (unstageable) which is most likely the source of fever. Blood cultures are growing GNR. Wound culture reveals Ecoli and E Fecalis. Urine culture revealed EColi. Patient still feels very weak, fatigued and just open her eyes when her name is called. Continue meropenem and vancomycin. ID, nephro and surgery consult appreciated. Patient underwent sacral wound debridement and she was found to have osteomyelitis of sacrum, preeti rectal and gluteal abscess. She also had LENOARDA and dehydration which is improving. She continue to have hyponatremia. Continue IVF. Continue to hold BP meds and keep NPO until patient is more awake, alert and passes swallow eval. Awaiting palliative care consult. Prognosis is poor. Prior to admission, she needed assistance with ADL' s and IADL's. Upon discharge patient will follow up with Dr Carter. Dr Bill Ruiz
--- NOTE | 2017-08-09 22:43 | PN ---
DATE: 08/09/2017 SUBJECTIVE: The patient is in bed, in no acute distress. PHYSICAL EXAMINATION: VITAL SIGNS: Temperature is 98, blood pressure is 117/80, respiratory rate of 18. HEENT: Unremarkable. NECK: Supple. LUNGS: Have decreased breath sounds. HEART: Normal S1, S2. ABDOMEN: Soft, nontender. LABORATORY EXAMINATION: Reveals a white count of 25,000, hemoglobin of 10, and platelets of 423. BUN of 35, creatinine of 0.9 and procalcitonin is 1.87. Urinalysis is noted and microbiology reveals the blood cultures have gram-negative parker. Further identification and sensitivity is pending. Urine culture is E. coli and is relatively sensitive E. coli and the decubitus ulcer with E. coli and Enterococcus. Review of orders reveals the patient to be on meropenem and patient is scheduled for surgery today with drainage of the gluteal abscess and perirectal abscess drainage . ASSESSMENT AND PLAN: An 87-year-old female who was seen early this morning in [facility], bed 2 with severe sepsis and gram-negative parker bacteremia and Escherichia coli in the urine and status post drainage and debridement of an abscess of the decubitus ulcer in a patient with Parkinson's and transient ischemic attack and hypertension, dyslipidemia. We will continue the meropenem. We will waiting for the identification of gram-negative parker in the blood and we will make further recommendation. Davy Casas MD
[2017-08-10 07:07] LABS: ALB/GLOB RATIO 0.6 (1.1-1.8); ALBUMIN 2.1 g/dL (3.0-4.8); ALT/SGPT 33 U/L (7-56); AST/SGOT 31 U/L (14-36); BLOOD UREA NITROGEN 27 mg/dL (7-21); CALCIUM 8.5 mg/dL (8.4-10.5); GFR AFRICAN-AMERICAN > 60; GFR NON-AFRICAN AMERICAN > 60
[2017-08-10 07:12] LABS: BASO # 0.02 K/mm3 (0.0-2.0); BASO % 0.1 % (0.0-3.0); EOS # 0.1 (0.0-0.7); EOS % 0.3 % (1.5-5.0); GRAN # 23.12 (1.4-6.5); GRAN % 89.7 % (50.0-68.0); HEMOGLOBIN 9.3 g/dL (12.0-16.0); LYMPH # 2.1 (1.2-3.4); LYMPH % 8.2 % (22.0-35.0); MEAN CELL VOLUME 89.3 fl (80.0-105.0); MEAN CORPUSCULAR HEMOGLOBIN 27.8 pg (25.0-35.0); MEAN CORPUSCULAR HGB CONC 31.1 g/dl (31.0-37.0); MEAN PLATELET VOLUME 9.7 fl (7.0-11.0); MONO # 0.4 (0.1-0.6); MONO % 1.7 % (1.0-6.0); RBC 3.35 10^6/uL (3.5-6.1)
[2017-08-10] MEDS ORDERED: Potassium Phosphate 15 MMOLE in Dextrose 5% In Water 250 ML IVPB ONE (07:44)
[2017-08-10 08:01] LABS: WHITE BLOOD COUNT 25.8 10^3/ul (4.5-11.0)
[2017-08-10] MEDS: Multivitamin With Minerals Tab PO SCH (08:27)
[2017-08-10] MEDS: Meropenem 1g/NS 100mL IVPB 1 GM/100 ML PIGGYBACK IVPB SCH ×2 (09:18→21:02)
--- NOTE | 2017-08-10 09:39 | CP.PCM.PN ---
Subjective - Date & Time of Evaluation Date of Evaluation: 08/10/17 Time of Evaluation: 07:00 - Subjective Subjective: Patient seen and examined at bedside. No adverse events overnight. Wound vac is functioning well with no leak and minimal output. Objective - Vital Signs/Intake and Output Vital Signs (last 24 hours): Temp Pulse Resp BP Pulse Ox 99.1 F 88 19 123/64 100 08/10/17 06:00 08/10/17 06:00 08/10/17 06:00 08/10/17 06:00 08/10/17 06:00 Intake and Output: 08/10/17 08/10/17 06:59 18:59 Intake Total 1104 Balance 1104 - Medications Medications: Current Medications Acetaminophen (Tylenol 325mg Tab) 650 mg PO Q6H PRN PRN Reason: Fever >100.4 F Albuterol Sulfate (Albuterol 0.083% Inhal Kerri (2.5 Mg/3 Ml) Ud) 2.5 mg IH Q2H PRN PRN Reason: Shortness of Breath Aspirin (Ecotrin) 81 mg PO DAILY [facility] Last Admin: 08/08/17 10:11 Dose: Not Given Atorvastatin Calcium (Lipitor) 10 mg PO DIN [facility] Last Admin: 08/09/17 17:21 Dose: Not Given Carbidopa/Levodopa (Sinemet Cr) 1 tab PO DAILY [facility] Last Admin: 08/09/17 09:24 Dose: Not Given Collagenase (Santyl) 0 gm TOP DAILY [facility] Last Admin: 08/09/17 11:35 Dose: Not Given Heparin Sodium (Porcine) (Heparin) 5,000 units SC Q12 [facility] PRN Reason: Protocol Last Admin: 08/08/17 21:39 Dose: 5,000 units Meropenem/Sodium Chloride (Meropenem 1g/Ns 100ml Ivpb) 1 gm in 100 mls @ 100 mls/hr IVPB Q12 [facility] PRN Reason: Protocol Last Admin: 08/10/17 09:18 Dose: 100 mls/hr Potassium Chloride 10 meq/ (Dextrose) 1,005 mls @ 100 mls/hr IV .Q10H3M [facility] Last Admin: 08/10/17 01:25 Dose: 100 mls/hr Potassium Phosphate 15 mmole/ (Dextrose) 255 mls @ 42.5 mls/hr IVPB ONCE ONE Stop: 08/10/17 13:43 Last Admin: 08/10/17 09:17 Dose: 42.5 mls/hr Losartan Potassium (Cozaar) 50 mg PO DAILY [facility] Memantine (Namenda) 5 mg PO BID [facility] Last Admin: 08/09/17 17:21 Dose: Not Given Morphine Sulfate (Morphine) 2 mg IVP Q4H PRN PRN Reason: Pain, severe (8-10) Multivitamins/Minerals (Therapeutic-M Tab) 1 tab PO 0800 [facility] Last Admin: 08/10/17 08:27 Dose: Not Given Pantoprazole Sodium (Protonix Inj) 40 mg IVP DAILY [facility] Last Admin: 08/10/17 09:18 Dose: 40 mg Zinc Sulfate (Zinc Sulfate 220 Mg Cap) 220 mg PO DAILY [facility] Last Admin: 08/09/17 09:24 Dose: Not Given - Labs Labs: 08/10/17 06:00 08/10/17 06:00 PT 16.3 SECONDS (9.4-12.5) H 08/07/17 09:30 INR 1.41 (0.93-1.08) H 08/07/17 09:30 APTT 42.8 Seconds (25.1-36.5) H 08/07/17 09:30 - Constitutional Appears: No Acute Distress, Chronically Ill - Head Exam Head Exam: ATRAUMATIC, NORMOCEPHALIC - ENT Exam ENT Exam: Mucous Membranes Moist, Normal Oropharynx - Respiratory Exam Respiratory Exam: NORMAL BREATHING PATTERN. absent: Accessory Muscle Use, Respiratory Distress - Cardiovascular Exam Cardiovascular Exam: RRR - GI/Abdominal Exam GI & Abdominal Exam: absent: Distended - Rectal Exam Rectal Exam: NORMAL INSPECTION - Extremities Exam Extremities Exam: absent: Calf Tenderness, Pedal Edema - Back Exam Additional comments: Stage 4 sacral decubitus ulcer extending into left gluteal abscess with wound vac in place with good seal, no sign of bleeding - Neurological Exam Neurological Exam: Altered - Psychiatric Exam Psychiatric exam: Flat Affect - Skin Skin Exam: Dry, Intact (except for as noted above), Normal Color, Warm Assessment and Plan - Assessment and Plan (Free Text) Assessment: 87F POD#1 s/p debridement of stage 4 sacral decubitus ulcer and left gluteal/ perirectal abscess with wound vac placement Plan: -Countinue wound vac to continuous suction -Change wound vac every three days--08/12 next -Monitor closely for bleeding -trend daily CBC -continue antibiotics per cultures sensitivites per ID -F/U wound culture results -May restart DVT ppx Discussed with Dr. Megan Ortiz, PGY2
[2017-08-10] MEDS: Collagenase 250 Units/gm Ointment(30 gm) TOP SCH (09:54)
[2017-08-10] MEDS: Carbidopa/Levodopa 50/200 CR PO SCH (09:54)
--- NOTE | 2017-08-10 11:14 | CT ---
PROCEDURE: CT HEAD WITHOUT CONTRAST. HISTORY: altered mental status, nonresponsive COMPARISON: Head CT 08/07/2017 and brain MRI 05/22/2017. TECHNIQUE: Axial computed tomography images were obtained through the head/brain without intravenous contrast. Radiation dose: Total exam DLP = 760.70 mGy-cm. This CT exam was performed using one or more of the following dose reduction techniques: Automated exposure control, adjustment of the mA and/or kV according to patient size, and/or use of iterative reconstruction technique. FINDINGS: HEMORRHAGE: No intracranial hemorrhage. BRAIN: Good corticomedullary differentiation is seen. Diffuse expansion of the ventriculosulcal and cisternal spaces is appreciated with white matter lucency compatible with diffuse cerebral atrophy and chronic microangiopathy. No suspicious extra-axial fluid collection is identified and the midline brain anatomy appears grossly nonfocal as imaged. There is no mass effect throughout. VENTRICLES: Unremarkable. No hydrocephalus. CALVARIUM: Unremarkable. PARANASAL SINUSES: Unremarkable as visualized. No significant inflammatory changes. MASTOID AIR CELLS: Unremarkable as visualized. No inflammatory changes. OTHER FINDINGS: None. IMPRESSION: Reiterated age related neuro degenerative changes are appreciated which appear age-appropriate once again. No definitive acute intracranial findings by standard CT criteria. Follow-up MRI is available if clinically warranted.
--- NOTE | 2017-08-10 11:32 | CP.PCM.PN ---
<Andrey Leiva S - Last Filed: 08/10/17 19:00> Subjective - Date & Time of Evaluation Date of Evaluation: 08/10/17 Time of Evaluation: 07:10 - Subjective Subjective: Medicine progress note for Dr. Bill Ruiz Hospitalist Service Patient seen and examined at bedside. Patient remains lethargic. She was arousable to stimuli minimally and was able to open her eyes but could not vocalize audible words. Cannot obtain ROS due to acuity of condition. Objective - Vital Signs/Intake and Output Vital Signs (last 24 hours): Temp Pulse Resp BP Pulse Ox 99.1 F 88 19 123/64 100 08/10/17 06:00 08/10/17 06:00 08/10/17 06:00 08/10/17 06:00 08/10/17 06:00 Intake and Output: 08/10/17 08/10/17 06:59 18:59 Intake Total 1104 Balance 1104 - Medications Medications: Current Medications Acetaminophen (Tylenol 325mg Tab) 650 mg PO Q6H PRN PRN Reason: Fever >100.4 F Albuterol Sulfate (Albuterol 0.083% Inhal Kerri (2.5 Mg/3 Ml) Ud) 2.5 mg IH Q2H PRN PRN Reason: Shortness of Breath Aspirin (Ecotrin) 81 mg PO DAILY [facility] Last Admin: 08/08/17 10:11 Dose: Not Given Atorvastatin Calcium (Lipitor) 10 mg PO DIN [facility] Last Admin: 08/09/17 17:21 Dose: Not Given Carbidopa/Levodopa (Sinemet Cr) 1 tab PO DAILY [facility] Last Admin: 08/10/17 09:54 Dose: Not Given Collagenase (Santyl) 0 gm TOP DAILY [facility] Last Admin: 08/10/17 09:54 Dose: Not Given Heparin Sodium (Porcine) (Heparin) 5,000 units SC Q12 [facility] PRN Reason: Protocol Last Admin: 08/08/17 21:39 Dose: 5,000 units Meropenem/Sodium Chloride (Meropenem 1g/Ns 100ml Ivpb) 1 gm in 100 mls @ 100 mls/hr IVPB Q12 [facility] PRN Reason: Protocol Last Admin: 08/10/17 09:18 Dose: 100 mls/hr Potassium Chloride 10 meq/ (Dextrose) 1,005 mls @ 100 mls/hr IV .Q10H3M [facility] Last Admin: 08/10/17 01:25 Dose: 100 mls/hr Potassium Phosphate 15 mmole/ (Dextrose) 255 mls @ 42.5 mls/hr IVPB ONCE ONE Stop: 08/10/17 13:43 Last Admin: 08/10/17 09:17 Dose: 42.5 mls/hr Losartan Potassium (Cozaar) 50 mg PO DAILY [facility] Memantine (Namenda) 5 mg PO BID [facility] Last Admin: 08/10/17 09:54 Dose: Not Given Morphine Sulfate (Morphine) 2 mg IVP Q4H PRN PRN Reason: Pain, severe (8-10) Multivitamins/Minerals (Therapeutic-M Tab) 1 tab PO 0800 [facility] Last Admin: 08/10/17 08:27 Dose: Not Given Pantoprazole Sodium (Protonix Inj) 40 mg IVP DAILY [facility] Last Admin: 08/10/17 09:18 Dose: 40 mg Zinc Sulfate (Zinc Sulfate 220 Mg Cap) 220 mg PO DAILY [facility] Last Admin: 08/10/17 09:54 Dose: Not Given - Labs Labs: 08/10/17 06:00 08/10/17 06:00 PT 16.3 SECONDS (9.4-12.5) H 08/07/17 09:30 INR 1.41 (0.93-1.08) H 08/07/17 09:30 APTT 42.8 Seconds (25.1-36.5) H 08/07/17 09:30 - Constitutional Appears: No Acute Distress, Chronically Ill - Head Exam Head Exam: ATRAUMATIC, NORMOCEPHALIC - Eye Exam Eye Exam: Normal appearance - ENT Exam ENT Exam: Mucous Membranes Dry - Respiratory Exam Respiratory Exam: Clear to Ausculation Bilateral, NORMAL BREATHING PATTERN. absent: Rales, Rhonchi, Wheezes - Cardiovascular Exam Cardiovascular Exam: REGULAR RHYTHM, +S1, +S2 - GI/Abdominal Exam GI & Abdominal Exam: Soft, Normal Bowel Sounds. absent: Distended, Tenderness - Extremities Exam Additional comments: right heel bed sore - Back Exam Additional comments: sacral ulcer status post debridement on 08/10/[address] - Neurological Exam Additional comments: lethargic - Skin Skin Exam: Dry, Warm Assessment and Plan - Assessment and Plan (Free Text) Assessment: This is an 87yo female with past medical history of Parkinson's, HTN, HLD, TIA admitted for sepsis secondary to sacral decubitus ulcer as well as hypernatremia secondary to poor PO intake. Debridement performed in the OR on . Per report, Stage 4 sacral decubitus ulcer, osteomyelitis of the sacrum, perirectal and gluteal abscess. Patient lethargic more than before today, and repeat Head CT was ordered but did not show any changes. Dobhoff tube placed and tube feeds started. 1. Sepsis - secondary to sacral decubitus ulcer stage 4 per surgery with evidence of osteomyelitis of the sacrum, perirectal and gluteal abscess - Lactate: 3.2 - ID consulted- Merrem on board - Surgery consulted for wound debridement. - Failed swallow eval. - Dobhoff tube placed and tube feeds started - D5 half NS@100 mL/hour - urine cultures grew E. coli - decubitus culture grew E.coli and E. faecalis - Blood cultures with gram negative rods - Multivitamin, Zinc - Tylenol prn fever 2. LEONARDA and Hypernatremia - Secondary to poor PO intake - Per nephrology, D5W with potassium @100 cc/hour - Nephrology consult - urine osmolality 851 - continue to monitor 3. HTN - BP normal - Will hold BP meds for now considering trend in vitals 4. HLD - Continue ASA and Lipitor 5. Parkinson's - Sinemet, Namenda - PT eval 6. Hypokalemia - continue to monitor 7. Hypophosphatemia - repleted - continue to monitor GI ppx: Protonix DVT ppx: Heparin, SCDs Disposition: Stage 4 sacral decubitus ulcer, osteomyelitis of the sacrum, perirectal and gluteal abscess was found. Follow up with palliative care. Patient does have an advanced directive which will be reviewed in family meeting. Dobhoff tube placed and tube feeds started. Peen and discussed with Dr. Bill Ruiz. <Bill Ruiz - Last Filed: 08/11/17 16:20> Objective - Vital Signs/Intake and Output Vital Signs (last 24 hours): Temp Pulse Resp BP Pulse Ox 98.0 F 89 20 177/70 H 100 08/11/17 12:00 08/11/17 12:00 08/11/17 12:00 08/11/17 12:00 08/11/17 06:00 Intake and Output: 08/11/17 08/11/17 06:59 18:59 Intake Total 1500 Output Total 600 Balance 900 - Medications Medications: Current Medications Acetaminophen (Tylenol 325mg Tab) 650 mg PO Q6H PRN PRN Reason: Fever >100.4 F Last Admin: 08/10/17 21:26 Dose: 650 mg Albuterol Sulfate (Albuterol 0.083% Inhal Kerri (2.5 Mg/3 Ml) Ud) 2.5 mg IH Q2H PRN PRN Reason: Shortness of Breath Aspirin (Ecotrin) 81 mg PO DAILY [facility] Last Admin: 08/11/17 09:01 Dose: 81 mg Atorvastatin Calcium (Lipitor) 10 mg PO DIN [facility] Last Admin: 08/10/17 17:44 Dose: 10 mg Carbidopa/Levodopa (Sinemet Cr) 1 tab PO DAILY [facility] Last Admin: 08/11/17 09:01 Dose: 1 tab Collagenase (Santyl) 0 gm TOP DAILY [facility] Last Admin: 08/10/17 09:54 Dose: Not Given Docusate Sodium (Colace Liquid) 100 mg PO TID [facility] Heparin Sodium (Porcine) (Heparin) 5,000 units SC Q12 [facility] PRN Reason: Protocol Last Admin: 08/11/17 09:14 Dose: 5,000 units Meropenem/Sodium Chloride (Meropenem 1g/Ns 100ml Ivpb) 1 gm in 100 mls @ 100 mls/hr IVPB Q12 [facility] PRN Reason: Protocol Last Admin: 08/11/17 09:01 Dose: 100 mls/hr Losartan Potassium (Cozaar) 50 mg PO DAILY [facility] Memantine (Namenda) 5 mg PO BID [facility] Last Admin: 08/11/17 09:01 Dose: 5 mg Morphine Sulfate (Morphine) 2 mg IVP Q4H PRN PRN Reason: Pain, severe (8-10) Multivitamins/Minerals (Therapeutic-M Tab) 1 tab PO 0800 [facility] Last Admin: 08/11/17 09:01 Dose: 1 tab Pantoprazole Sodium (Protonix Inj) 40 mg IVP DAILY [facility] Last Admin: 08/11/17 09:00 Dose: 40 mg Polyethylene Glycol (Miralax) 17 gm PO BID [facility] Zinc Sulfate (Zinc Sulfate 220 Mg Cap) 220 mg PO DAILY [facility] Last Admin: 08/11/17 09:01 Dose: 220 mg - Labs Labs: 08/11/17 06:30 08/11/17 06:30 PT 16.3 SECONDS (9.4-12.5) H 08/07/17 09:30 INR 1.41 (0.93-1.08) H 08/07/17 09:30 APTT 42.8 Seconds (25.1-36.5) H 08/07/17 09:30 Attending/Attestation - Attestation I have personally seen and examined this patient.: Yes I have fully participated in the care of the patient.: Yes I have reviewed all pertinent clinical information, including history, physical exam and plan: Yes Notes (Text): I have seen and examined the patient at bedside. Agree with the above note with the following additions/ exceptions: Briefly this is 87 year old female with history of Parkinson's, advanced dementia, HTN, HLD, TIA who was admitted for AMS. Family also reports fever, chills, diaphoresis and found to have sacral decubitus ulcer which is most likely the source of fever. Blood cultures are growing GNR. Wound culture reveals Ecoli and E Fecalis. Urine culture revealed EColi. Patient still feels very weak, fatigued and not opening her eyes. VS all within normal limits. Blood sugars are also normal. Repeat CT head ordered which did not show any changes. Continue meropenem and vancomycin. ID, nephro and surgery consult appreciated. Patient underwent sacral wound debridement and she was found to have osteomyelitis of sacrum, preeti rectal and gluteal abscess. She also had LEONARDA and dehydration which has resolved. She continue to have hyponatremia which is improving with IVF. Continue to hold BP meds and keep NPO until patient is more awake, alert and passes swallow eval. Palliative care consult appreciated. Patient has advance directive and family is going to bring that soon. Prognosis is poor. Prior to admission, she needed assistance with ADL 's and IADL's. Upon discharge patient will follow up with Dr Carter. Dr Bill Ruiz
[2017-08-10 11:48] LABS: OSMOLALITY,URINE 851 mosm/kg (300-1000)
--- NOTE | 2017-08-10 15:18 | RAD ---
HISTORY: s/p DB COMPARISON: 08/07/2017. FINDINGS: The nasogastric tube terminates in the stomach. LUNGS: The right lung is well inflated and clear. There is left basilar airspace disease. PLEURA: Small left pleural effusion. No significant right pleural effusion identified, no pneumothorax apparent. CARDIOVASCULAR: Normal. OSSEOUS STRUCTURES: No significant abnormalities. VISUALIZED UPPER ABDOMEN: Normal. OTHER FINDINGS: None. IMPRESSION: Left basilar atelectasis/ pneumonia and small left pleural effusion. Follow-up is advised.
[2017-08-10] MEDS: WATER IV SCH (17:39)
[2017-08-10] MEDS: POTASSIUM PHOSPHATE IV SCH (17:39)
[2017-08-10] MEDS: DEXTROSE IV SCH (17:39)
--- NOTE | 2017-08-10 18:54 | PN ---
DATE: 08/10/2017 SUBJECTIVE: Patient is seen lying in bed. She is lethargic, she is barely arousable. Daughter is at the bedside. PHYSICAL EXAMINATION: GENERAL: An elderly lady, lying in bed. VITAL SIGNS: Blood pressure 137/77, heart rate 86, respiratory rate 18, temperature 99, T-max is 99.1. HEENT: Normocephalic, atraumatic, positive pallor. NECK: Supple, no JVD. LUNGS: Bilateral equal air entry, no rales. CARDIAC: S1, S2. Regular rate and rhythm. No murmur, no rub. ABDOMEN: Obese, distended, soft, nontender, bowel sounds present. EXTREMITIES: No lower extremity edema. INTAKE AND OUTPUT: 1179/not charted. LABORATORY DATA: WBC 25.8, hemoglobin 9, hematocrit 30, platelets 388. Sodium 150, potassium 3.7, chloride 117, CO2 of 25, BUN 27, creatinine 0.8, glucose 188, calcium 8.5, phosphorus 2.4, magnesium 2.0, albumin 2.1. ASSESSMENT: 1. Sepsis. 2. Escherichia coli urinary tract infection. 3. Escherichia coli and enterococcal wound infection. 4. Status post debridement of sacral wound. 5. Sacral osteomyelitis. 6. Hypernatremia, resolving. 7. Hypokalemia. 8. Hypophosphatemia. PLAN: 1. Continue antibiotics as per ID recommendations. 2. Continue wound care. 3. Continue hypotonic fluids. 4. Add potassium phosphate to IV fluids. Sharonda Del Rio MD
--- NOTE | 2017-08-11 02:14 | PN ---
DATE: 08/10/2017 SUBJECTIVE: Patient was seen earlier today in 374, bed 2. No fevers and no chills. PHYSICAL EXAMINATION: VITAL SIGNS: Temperature of 100.4, respiratory rate of 21, and heart rate of 86. HEENT: Unremarkable. NECK: Supple. LUNGS: Have decreased breath sounds. HEART: Normal S1, S2. ABDOMEN: Soft, nontender. LABORATORY EXAMINATION: Reveals a white count of 25,000. BUN of 27, creatinine of 0.8, and procalcitonin is 1.87. Urinalysis is noted and influenza is negative. Microbiology reveals the decubitus culture, E. coli and Enterococcus. Urine culture is E. coli. ASSESSMENT AND PLAN: An 87-year-old female with severe sepsis with Escherichia coli in the urine cultures as the source and the patient with Parkinson's, transient ischemic attack, hypertension, dyslipidemia. In the blood cultures, Prevotella loescheii, gram-negative parker, and one bottle with Escherichia coli in the urine. Sacral cultures with Escherichia coli and Enterococcus. Further identification of gram-negative rods in the blood in one bottle. We will continue the meropenem. Davy Casas MD
[2017-08-11] MEDS: WATER IV SCH (03:36)
[2017-08-11] MEDS: DEXTROSE IV SCH (03:36)
[2017-08-11] MEDS: POTASSIUM PHOSPHATE IV SCH (03:36)
--- NOTE | 2017-08-11 06:33 | OP ---
PROCEDURE DATE: 08/09/2017 PREOPERATIVE DIAGNOSIS: Infected sacral decubitus ulcer. POSTOPERATIVE DIAGNOSES: 1. Sacral decubitus ulcer. 2. Sacral, gluteal and perirectal abscess. PROCEDURES DONE: 1. Excisional debridement of sacral decubitus ulcer, 15 x 15 x 5 cm in size. 2. Drainage of sacral abscess. 3. Incision and drainage of perirectal abscess. 4. Incision and drainage of the left gluteal abscess. 5. Excision of the infected redundant skin and subcutaneous tissue of the sacral and perineal area. 6. Negative pressure wound VAC therapy, more than 15 cm2 area. SURGEON: Edilson Guzman M.D. [employer]: [facility], PGY-2 resident. TYPE OF ANESTHESIA: General endotracheal tube anesthesia. ESTIMATED BLOOD LOSS: Around 50 mL. DRAINS: The wound VAC was placed as a drain. COMPLICATIONS: None. INTRAOPERATIVE FINDINGS: The patient had sacral decubitus ulcer of approximately 8 x 10 cm size with necrotic wound edges. The patient also had sacral abscess that was extending to left gluteal region as well as the perirectal area. The patient also had extensive infected skin and subcutaneous tissue surrounding the decubitus ulcer. DESCRIPTION OF PROCEDURE: On intraoperative steps, this is an 87-year-old female who was diagnosed with infected sacral decubitus ulcer, and the patient's family was consented for excisional debridement as well as a drainage of the abscess. Patient was brought to the OR, placed in the left lateral position. The perineal area was prepped and draped in the usual sterile fashion and local anesthesia was injected, sedation was given. The necrotic tissue was first excised. Patient was found to have a large amount of pus underneath the sacral area that was also debrided. The infected skin and subcutaneous tissue deep to the ulcer area was also debrided. The patient had extension of the abscess into the left gluteal region, that was debrided and drained. Patient also had extension of the abscess to the perirectal area that was also debrided and drained. After proper hemostasis and after complete drainage of all the abscesses and debridement of all the areas of infected tissue as well as the redundant skin edges, the pulse lavage was done to clean the area and the hemostasis was achieved. The negative pressure wound VAC therapy was applied. The wound VAC was connected to the suction and there was a good seal. After that, the patient was sent to the Postanesthesia Care Unit in stable condition. Count of the instrument and gauze was correct. There was no apparent complication. The patient was reversed from sedation. Patient tolerated the procedure well. Edilson Guzman MD
[2017-08-11 07:11] LABS: BASO # 0.02 K/mm3 (0.0-2.0); BASO % 0.1 % (0.0-3.0); EOS # 0.1 (0.0-0.7); EOS % 0.4 % (1.5-5.0); GRAN # 24.4 (1.4-6.5); GRAN % 89.4 % (50.0-68.0); HEMOGLOBIN 9.9 g/dL (12.0-16.0); LYMPH # 2.2 (1.2-3.4); LYMPH % 7.9 % (22.0-35.0); MEAN CELL VOLUME 88.2 fl (80.0-105.0); MEAN CORPUSCULAR HEMOGLOBIN 27.7 pg (25.0-35.0); MEAN CORPUSCULAR HGB CONC 31.4 g/dl (31.0-37.0); MONO # 0.6 (0.1-0.6); MONO % 2.2 % (1.0-6.0); RBC 3.57 10^6/uL (3.5-6.1); RED CELL DISTRIBUTION WIDTH 14.7 % (11.5-14.5)
[2017-08-11 07:28] LABS: WHITE BLOOD COUNT 27.3 10^3/ul (4.5-11.0)
[2017-08-11 07:55] LABS: ALB/GLOB RATIO 0.6 (1.1-1.8); ALBUMIN 2.1 g/dL (3.0-4.8); ALT/SGPT 45 U/L (7-56); AST/SGOT 79 U/L (14-36); BLOOD UREA NITROGEN 21 mg/dL (7-21); CALCIUM 7.8 mg/dL (8.4-10.5); GFR AFRICAN-AMERICAN > 60; GFR NON-AFRICAN AMERICAN > 60; MAGNESIUM 1.8 mg/dL (1.7-2.2)
[2017-08-11] MEDS: Multivitamin With Minerals Tab PO SCH (09:01)
[2017-08-11] MEDS: Carbidopa/Levodopa 50/200 CR PO SCH (09:01)
[2017-08-11] MEDS: Meropenem 1g/NS 100mL IVPB 1 GM/100 ML PIGGYBACK IVPB SCH ×2 (09:01→21:37)
--- NOTE | 2017-08-11 09:07 | CARD ---
APPROVED REPORT EXAM: Two-dimensional and M-mode echocardiogram with Doppler and color Doppler. Other Information Quality : GoodRhythm : INDICATION R/O CHF 2D DIMENSIONS Left Atrium (2D)3.6 (1.6-4.0cm)IVSd1.0 (0.7-1.1cm) LVDd4.1 (3.9-5.9cm)LVOT Diameter1.8 (1.8-2.4cm) PWd1.0 (0.7-1.1cm)LVDs2.8 (2.5-4.0cm) FS (%) 31.4 %LVEF (%)59.0 (>50%) M-Mode DIMENSIONS Aortic Root2.70 (2.2-3.7cm)Aortic Cusp Exc.0.90 (1.5-2.0cm) Aortic Valve AoV Peak Xbyyxtok542.0cm/sAoV VTI39.9cmLVOT Peak Qdpjfatp22.8cm/s LVOT VTI20.70cmAVA (VMAX)1.65iq9BOV (VTI)1.32cm2 Mitral Valve MV E Rctlqewi75.0cm/sMV A Bkuybywr289.0cm/sE/A ratio0.9 TDI Lateral E' Peak V6.34cm/sMedial E' Peak V5.85cm/sE/Lateral E'14.4 E/Medial E'15.6 Pulmonary Valve PV Peak Nzlagarr69.9cm/sPV Peak Grad.2mmHg Tricuspid Valve TR Peak Srvnaxhu339yb/sRAP DDLESZBJ42zySsVH Peak Gr.44mmHg [id number] LEFT VENTRICLE The left ventricle is normal size. There is normal left ventricular wall thickness. The left ventricular function is normal. The left ventricular ejection fraction is within the normal range. There is normal LV segmental wall motion. RIGHT VENTRICLE The right ventricle is normal size. ATRIA The left atrium size is normal. The right atrium size is normal. The interatrial septum is intact with no evidence for an atrial septal defect. AORTIC VALVE The aortic valve is moderately calcified. MITRAL VALVE The mitral valve is normal in structure. Mitral regurgitation is mild. TRICUSPID VALVE The tricuspid valve is normal in structure. There is trace to mild tricuspid regurgitation. There is moderate pulmonary hypertension. PULMONIC VALVE The pulmonic valve is not well visualized. GREAT VESSELS The aortic root is normal in size. PERICARDIAL EFFUSION There is no pericardial effusion. <Conclusion> The left ventricle is normal size. There is normal left ventricular wall thickness. The left ventricular function is normal. The aortic valve is moderately calcified. Aortic sclerosis. Mitral regurgitation is mild. There is trace to mild tricuspid regurgitation. There is moderate pulmonary hypertension.
--- NOTE | 2017-08-11 09:48 | CP.PCM.PN ---
<Andrey Leiva - Last Filed: 08/11/17 13:58> Subjective - Date & Time of Evaluation Date of Evaluation: 08/11/17 Time of Evaluation: 07:00 - Subjective Subjective: Medicine progress note for Dr. Bill Ruiz Hospitalist Service Patient seen and examined at bedside. Patient remains somnolent and lethargic. Could not arouse her from sleep this morning. Unable to obtain ROS. Objective - Vital Signs/Intake and Output Vital Signs (last 24 hours): Temp Pulse Resp BP Pulse Ox 99.2 F 84 20 120/68 100 08/11/17 06:00 08/11/17 06:00 08/11/17 06:00 08/11/17 06:00 08/11/17 06:00 Intake and Output: 08/11/17 08/11/17 06:59 18:59 Intake Total 1500 Output Total 600 Balance 900 - Medications Medications: Current Medications Acetaminophen (Tylenol 325mg Tab) 650 mg PO Q6H PRN PRN Reason: Fever >100.4 F Last Admin: 08/10/17 21:26 Dose: 650 mg Albuterol Sulfate (Albuterol 0.083% Inhal Kerri (2.5 Mg/3 Ml) Ud) 2.5 mg IH Q2H PRN PRN Reason: Shortness of Breath Aspirin (Ecotrin) 81 mg PO DAILY [facility] Last Admin: 08/11/17 09:01 Dose: 81 mg Atorvastatin Calcium (Lipitor) 10 mg PO DIN [facility] Last Admin: 08/10/17 17:44 Dose: 10 mg Carbidopa/Levodopa (Sinemet Cr) 1 tab PO DAILY [facility] Last Admin: 08/11/17 09:01 Dose: 1 tab Collagenase (Santyl) 0 gm TOP DAILY [facility] Last Admin: 08/10/17 09:54 Dose: Not Given Heparin Sodium (Porcine) (Heparin) 5,000 units SC Q12 [facility] PRN Reason: Protocol Last Admin: 08/11/17 09:14 Dose: 5,000 units Meropenem/Sodium Chloride (Meropenem 1g/Ns 100ml Ivpb) 1 gm in 100 mls @ 100 mls/hr IVPB Q12 [facility] PRN Reason: Protocol Last Admin: 08/11/17 09:01 Dose: 100 mls/hr Losartan Potassium (Cozaar) 50 mg PO DAILY [facility] Memantine (Namenda) 5 mg PO BID [facility] Last Admin: 08/11/17 09:01 Dose: 5 mg Morphine Sulfate (Morphine) 2 mg IVP Q4H PRN PRN Reason: Pain, severe (8-10) Multivitamins/Minerals (Therapeutic-M Tab) 1 tab PO 0800 [facility] Last Admin: 08/11/17 09:01 Dose: 1 tab Pantoprazole Sodium (Protonix Inj) 40 mg IVP DAILY [facility] Last Admin: 08/11/17 09:00 Dose: 40 mg Zinc Sulfate (Zinc Sulfate 220 Mg Cap) 220 mg PO DAILY [facility] Last Admin: 08/11/17 09:01 Dose: 220 mg - Labs Labs: 08/11/17 06:30 08/11/17 06:30 PT 16.3 SECONDS (9.4-12.5) H 08/07/17 09:30 INR 1.41 (0.93-1.08) H 08/07/17 09:30 APTT 42.8 Seconds (25.1-36.5) H 08/07/17 09:30 - Constitutional Appears: No Acute Distress, Chronically Ill - Head Exam Head Exam: ATRAUMATIC, NORMOCEPHALIC - Eye Exam Eye Exam: Normal appearance - ENT Exam ENT Exam: Mucous Membranes Dry - Respiratory Exam Respiratory Exam: Clear to Ausculation Bilateral, NORMAL BREATHING PATTERN. absent: Rales, Rhonchi, Wheezes - Cardiovascular Exam Cardiovascular Exam: REGULAR RHYTHM, +S1, +S2 - GI/Abdominal Exam GI & Abdominal Exam: Distended, Soft, Normal Bowel Sounds. absent: Tenderness - Extremities Exam Additional comments: right heel bed sore - Back Exam Additional comments: sacral ulcer status post debridement on 08/10/[address] - Neurological Exam Neurological Exam: Altered - Skin Skin Exam: Dry, Warm Assessment and Plan - Assessment and Plan (Free Text) Assessment: This is an 87yo female with past medical history of Parkinson's, HTN, HLD, TIA admitted for sepsis secondary to sacral decubitus ulcer as well as hypernatremia secondary to poor PO intake. Debridement performed in the OR on . Per report, Stage 4 sacral decubitus ulcer, osteomyelitis of the sacrum, perirectal and gluteal abscess. Patient lethargic more than before today, and repeat Head CT was ordered but did not show any changes. Dobhoff tube placed and tube feeds started. Per family, they request all possible intervention for now. 1. Sepsis - secondary to sacral decubitus ulcer stage 4 per surgery with evidence of osteomyelitis of the sacrum, perirectal and gluteal abscess - Lactate: 3.2 - ID consulted- Corinerem on board - Surgery consulted for wound debridement. - Failed swallow eval. - Dobhoff tube placed and tube feeds started - D5 half NS@100 mL/hour - urine cultures grew E. coli - decubitus culture grew E.coli and E. faecalis - Blood cultures with gram negative rods - Multivitamin, Zinc - Tylenol prn fever 2. LEONARDA and Hypernatremia - Secondary to poor PO intake - Per nephrology, D5W with potassium @100 cc/hour - Nephrology consult - urine osmolality 851 - continue to monitor 3. HTN - BP normal - Will hold BP meds for now considering trend in vitals 4. HLD - Continue ASA and Lipitor 5. Parkinson's - Sinemet, Namenda - PT eval 6. Hypokalemia - continue to monitor 7. Hypophosphatemia - repleted - continue to monitor 8. Abdominal Distention - Possibly due to constipation--miralax added - Follow up CT chest/abdomen/pelvis with IV & PO contrast GI ppx: Protonix DVT ppx: Heparin, SCDs Disposition: Stage 4 sacral decubitus ulcer, osteomyelitis of the sacrum, perirectal and gluteal abscess was found. Per family, they wish for full code at this time. They will consider PEG tube at a later date. Due to abdominal distention, CT scan was ordered. Seen and discussed with Dr. Bill Ruiz. <Bill Ruiz - Last Filed: 08/11/17 16:56> Objective - Vital Signs/Intake and Output Vital Signs (last 24 hours): Temp Pulse Resp BP Pulse Ox 98.0 F 91 H 20 177/70 H 100 08/11/17 12:00 08/11/17 14:00 08/11/17 12:00 08/11/17 12:00 08/11/17 06:00 Intake and Output: 08/11/17 08/11/17 06:59 18:59 Intake Total 1500 Output Total 600 Balance 900 - Medications Medications: Current Medications Acetaminophen (Tylenol 325mg Tab) 650 mg PO Q6H PRN PRN Reason: Fever >100.4 F Last Admin: 08/10/17 21:26 Dose: 650 mg Albuterol Sulfate (Albuterol 0.083% Inhal Kerri (2.5 Mg/3 Ml) Ud) 2.5 mg IH Q2H PRN PRN Reason: Shortness of Breath Aspirin (Ecotrin) 81 mg PO DAILY [facility] Last Admin: 08/11/17 09:01 Dose: 81 mg Atorvastatin Calcium (Lipitor) 10 mg PO DIN [facility] Last Admin: 08/10/17 17:44 Dose: 10 mg Carbidopa/Levodopa (Sinemet Cr) 1 tab PO DAILY [facility] Last Admin: 08/11/17 09:01 Dose: 1 tab Collagenase (Santyl) 0 gm TOP DAILY [facility] Last Admin: 08/10/17 09:54 Dose: Not Given Docusate Sodium (Colace Liquid) 100 mg PO TID [facility] Last Admin: 08/11/17 16:07 Dose: 100 mg Heparin Sodium (Porcine) (Heparin) 5,000 units SC Q12 [facility] PRN Reason: Protocol Last Admin: 08/11/17 09:14 Dose: 5,000 units Meropenem/Sodium Chloride (Meropenem 1g/Ns 100ml Ivpb) 1 gm in 100 mls @ 100 mls/hr IVPB Q12 [facility] PRN Reason: Protocol Last Admin: 08/11/17 09:01 Dose: 100 mls/hr Losartan Potassium (Cozaar) 50 mg PO DAILY [facility] Memantine (Namenda) 5 mg PO BID [facility] Last Admin: 08/11/17 09:01 Dose: 5 mg Morphine Sulfate (Morphine) 2 mg IVP Q4H PRN PRN Reason: Pain, severe (8-10) Multivitamins/Minerals (Therapeutic-M Tab) 1 tab PO 0800 [facility] Last Admin: 08/11/17 09:01 Dose: 1 tab Pantoprazole Sodium (Protonix Inj) 40 mg IVP DAILY [facility] Last Admin: 08/11/17 09:00 Dose: 40 mg Polyethylene Glycol (Miralax) 17 gm PO BID [facility] Zinc Sulfate (Zinc Sulfate 220 Mg Cap) 220 mg PO DAILY [facility] Last Admin: 08/11/17 09:01 Dose: 220 mg - Labs Labs: 08/11/17 06:30 08/11/17 06:30 PT 16.3 SECONDS (9.4-12.5) H 08/07/17 09:30 INR 1.41 (0.93-1.08) H 08/07/17 09:30 APTT 42.8 Seconds (25.1-36.5) H 08/07/17 09:30 Attending/Attestation - Attestation I have personally seen and examined this patient.: Yes I have fully participated in the care of the patient.: Yes I have reviewed all pertinent clinical information, including history, physical exam and plan: Yes Notes (Text): I have seen and examined the patient at bedside. Agree with the above note with the following additions/ exceptions: Briefly this is 87 year old female with history of Parkinson's, advanced dementia, HTN, HLD, TIA who was admitted for AMS. Family reported fever, chills, diaphoresis and found to have sacral decubitus ulcer which is most likely the source of fever. One of Blood cultures bottle grew prevotella. Wound culture reveals Ecoli and E Fecalis. Intraoperative cultures are pending. Urine culture revealed EColi. Patient still feels very weak, fatigued. VS all within normal limits. Last night patient had a temp off 100.4. Continue meropenem. Vancomycin was stopped. ID, nephro and surgery consult appreciated. Patient underwent sacral wound debridement and she was found to have osteomyelitis of sacrum, preeti rectal and gluteal abscess. Wound vac in place. Today her leukocytosis got worse. Will order CT abdomen and pelvis. Patient may need further debridement as per surgery team. She also had LEONARDA and dehydration which has resolved. Her hyponatremia has resolved as well. Continue to hold BP meds and keep NPO until patient is more awake, alert and passes swallow eval. Palliative care consult appreciated. Patient has advance directive and this was discussed with the family. Patient is full code as of now. Prognosis is poor. Prior to admission, she needed assistance with ADL's and IADL's. Upon discharge patient will follow up with Dr Carter. Dr Bill Ruiz
[2017-08-11] MEDS ORDERED: Barium Sulfate Susp 2.1% w/v, 2.0% w/w 450 mL Bottle PO ONE (10:38)
--- NOTE | 2017-08-11 11:26 | CP.PCM.PN ---
<Inrgis Ortiz - Last Filed: 08/11/17 12:39> Subjective - Date & Time of Evaluation Date of Evaluation: 08/11/17 Time of Evaluation: 10:30 - Subjective Subjective: Patient seen and examined at bedside. Patient had a fever of 100.4 overnight which has resolved. Wound vac is functioning well. Patient has abdominal distension and grimaces when she is palpated. Last BM was yesterday. Discussed clinical course, current status, pending results and plans at length with son in the room who had many questions and concerns. Paulette Su with palliative was present for the conversation. Objective - Vital Signs/Intake and Output Vital Signs (last 24 hours): Temp Pulse Resp BP Pulse Ox 99.2 F 84 20 120/68 100 08/11/17 06:00 08/11/17 06:00 08/11/17 06:00 08/11/17 06:00 08/11/17 06:00 Intake and Output: 08/11/17 08/11/17 06:59 18:59 Intake Total 1500 Output Total 600 Balance 900 - Medications Medications: Current Medications Acetaminophen (Tylenol 325mg Tab) 650 mg PO Q6H PRN PRN Reason: Fever >100.4 F Last Admin: 08/10/17 21:26 Dose: 650 mg Albuterol Sulfate (Albuterol 0.083% Inhal Kerri (2.5 Mg/3 Ml) Ud) 2.5 mg IH Q2H PRN PRN Reason: Shortness of Breath Aspirin (Ecotrin) 81 mg PO DAILY [facility] Last Admin: 08/11/17 09:01 Dose: 81 mg Atorvastatin Calcium (Lipitor) 10 mg PO DIN [facility] Last Admin: 08/10/17 17:44 Dose: 10 mg Carbidopa/Levodopa (Sinemet Cr) 1 tab PO DAILY [facility] Last Admin: 08/11/17 09:01 Dose: 1 tab Collagenase (Santyl) 0 gm TOP DAILY [facility] Last Admin: 08/10/17 09:54 Dose: Not Given Heparin Sodium (Porcine) (Heparin) 5,000 units SC Q12 [facility] PRN Reason: Protocol Last Admin: 08/11/17 09:14 Dose: 5,000 units Meropenem/Sodium Chloride (Meropenem 1g/Ns 100ml Ivpb) 1 gm in 100 mls @ 100 mls/hr IVPB Q12 [facility] PRN Reason: Protocol Last Admin: 08/11/17 09:01 Dose: 100 mls/hr Losartan Potassium (Cozaar) 50 mg PO DAILY [facility] Memantine (Namenda) 5 mg PO BID [facility] Last Admin: 08/11/17 09:01 Dose: 5 mg Morphine Sulfate (Morphine) 2 mg IVP Q4H PRN PRN Reason: Pain, severe (8-10) Multivitamins/Minerals (Therapeutic-M Tab) 1 tab PO 0800 [facility] Last Admin: 08/11/17 09:01 Dose: 1 tab Pantoprazole Sodium (Protonix Inj) 40 mg IVP DAILY [facility] Last Admin: 08/11/17 09:00 Dose: 40 mg Zinc Sulfate (Zinc Sulfate 220 Mg Cap) 220 mg PO DAILY [facility] Last Admin: 08/11/17 09:01 Dose: 220 mg - Labs Labs: 08/11/17 06:30 08/11/17 06:30 PT 16.3 SECONDS (9.4-12.5) H 08/07/17 09:30 INR 1.41 (0.93-1.08) H 08/07/17 09:30 APTT 42.8 Seconds (25.1-36.5) H 08/07/17 09:30 - Constitutional Appears: No Acute Distress - Head Exam Head Exam: ATRAUMATIC, NORMOCEPHALIC - Eye Exam Eye Exam: Normal appearance. absent: Conjunctival injection, Scleral icterus - ENT Exam ENT Exam: Mucous Membranes Moist Additional comments: dobhoff tube in place in the left nares - Respiratory Exam Respiratory Exam: NORMAL BREATHING PATTERN. absent: Accessory Muscle Use, Respiratory Distress - GI/Abdominal Exam GI & Abdominal Exam: Distended (moderate lower abdominal distension), Soft, Tenderness (BL LQ) - Extremities Exam Extremities Exam: absent: Calf Tenderness, Pedal Edema - Back Exam Additional comments: unable to assess sacral wound--patient had just received a bolus of contrast through the nasogastric dobhoff and was concerned for aspiration risk. Wound vac is in place without leak - Neurological Exam Neurological Exam: Altered - Psychiatric Exam Psychiatric exam: Flat Affect Additional comments: not interactive - Skin Skin Exam: Dry, Intact (except for sacral wound), Normal Color, Warm Assessment and Plan - Assessment and Plan (Free Text) Assessment: 87F POD#2 s/p debridement of stage 4 sacral decubitus ulcer and left gluteal/ perirectal abscess with wound vac placement WBC increased from 25.8 to 27.3 Low grade fever last night abdominal pain Plan: -Countinue wound vac to continuous suction -Change wound vac every three days--08/12 next. Further surgical planning pending appearance of wound--may need further surgical debridement this hospitalzation -trend daily CBC -continue antibiotics per cultures sensitivities and ID recs -F/U intra-operative wound culture results: gran negative rods -F/U CT chest abdomen pelvis with PO and IV contrast Discussed with Dr. Megan Ortiz, PGY2 <Edilson Guzman - Last Filed: 08/15/17 20:37> Objective - Vital Signs/Intake and Output Vital Signs (last 24 hours): Temp Pulse Resp BP Pulse Ox 97.5 F L 80 18 139/68 99 08/15/17 12:00 08/15/17 12:00 08/15/17 12:00 08/15/17 12:00 08/15/17 09:49 Intake and Output: 08/15/17 08/16/17 18:59 06:59 Intake Total 0 Output Total 450 Balance -450 - Medications Medications: Current Medications Acetaminophen (Tylenol 650mg/20.3ml Solution Ud) 650 mg NG Q6H PRN PRN Reason: Fever >100.4 F Last Admin: 08/12/17 01:38 Dose: 650 mg Albuterol Sulfate (Albuterol 0.083% Inhal Kerri (2.5 Mg/3 Ml) Ud) 2.5 mg IH Q2H PRN PRN Reason: Shortness of Breath Last Admin: 08/12/17 14:05 Dose: 2.5 mg Aspirin (Ecotrin) 81 mg PO DAILY [facility] Last Admin: 08/15/17 10:23 Dose: Not Given Atorvastatin Calcium (Lipitor) 10 mg PO DIN [facility] Last Admin: 08/15/17 17:46 Dose: Not Given Carbidopa/Levodopa (Sinemet Cr) 1 tab PO DAILY [facility] Last Admin: 08/15/17 10:24 Dose: Not Given Collagenase (Santyl) 0 gm TOP DAILY [facility] Last Admin: 08/15/17 10:47 Dose: Not Given Heparin Sodium (Porcine) (Heparin) 5,000 units SC Q12 [facility] PRN Reason: Protocol Last Admin: 08/15/17 10:46 Dose: 5,000 units Meropenem/Sodium Chloride (Meropenem 1g/Ns 100ml Ivpb) 1 gm in 100 mls @ 100 mls/hr IVPB Q12 [facility] PRN Reason: Protocol Last Admin: 08/15/17 10:46 Dose: 100 mls/hr Potassium Phosphate 10 mmole/ (Dextrose/Sodium Chloride) 1,003.3333 mls @ 75 mls/hr IV .[id number] [facility] Last Admin: 08/15/17 19:37 Dose: 75 mls/hr Losartan Potassium (Cozaar) 50 mg PO DAILY [facility] Memantine (Namenda) 5 mg PO BID [facility] Last Admin: 08/15/17 10:23 Dose: Not Given Multivitamins/Minerals (Therapeutic-M Tab) 1 tab PO 0800 [facility] Last Admin: 08/15/17 08:00 Dose: Not Given Ondansetron HCl (Zofran Inj) 4 mg IVP ONCE PRN PRN Reason: Nausea/Vomiting Pantoprazole Sodium (Protonix Inj) 40 mg IVP DAILY [facility] Last Admin: 08/15/17 10:46 Dose: 40 mg Zinc Sulfate (Zinc Sulfate 220 Mg Cap) 220 mg PO DAILY [facility] Last Admin: 08/15/17 10:24 Dose: Not Given - Labs Labs: 08/15/17 13:30 08/15/17 13:30 PT 16.3 SECONDS (9.4-12.5) H 08/07/17 09:30 INR 1.41 (0.93-1.08) H 08/07/17 09:30 APTT 42.8 Seconds (25.1-36.5) H 08/07/17 09:30 Attending/Attestation - Attestation I have personally seen and examined this patient.: Yes I have fully participated in the care of the patient.: Yes I have reviewed all pertinent clinical information, including history, physical exam and plan: Yes Notes (Text): Pt was seen and examined at bedside Agree with above note and assessment Local wound care c/w IV antibiotics Plan d.w primary team in detail.
--- NOTE | 2017-08-11 12:26 | CP.PCM.PN ---
Subjective - Date & Time of Evaluation Date of Evaluation: 08/11/17 Time of Evaluation: 11:00 - Subjective Subjective: Briefly opens eyes when name is called. Objective - Vital Signs/Intake and Output Vital Signs (last 24 hours): Temp Pulse Resp BP Pulse Ox 99.2 F 84 20 120/68 100 08/11/17 06:00 08/11/17 06:00 08/11/17 06:00 08/11/17 06:00 08/11/17 06:00 Intake and Output: 08/11/17 08/11/17 06:59 18:59 Intake Total 1500 Output Total 600 Balance 900 - Medications Medications: Current Medications Acetaminophen (Tylenol 325mg Tab) 650 mg PO Q6H PRN PRN Reason: Fever >100.4 F Last Admin: 08/10/17 21:26 Dose: 650 mg Albuterol Sulfate (Albuterol 0.083% Inhal Kerri (2.5 Mg/3 Ml) Ud) 2.5 mg IH Q2H PRN PRN Reason: Shortness of Breath Aspirin (Ecotrin) 81 mg PO DAILY [facility] Last Admin: 08/11/17 09:01 Dose: 81 mg Atorvastatin Calcium (Lipitor) 10 mg PO DIN [facility] Last Admin: 08/10/17 17:44 Dose: 10 mg Carbidopa/Levodopa (Sinemet Cr) 1 tab PO DAILY [facility] Last Admin: 08/11/17 09:01 Dose: 1 tab Collagenase (Santyl) 0 gm TOP DAILY [facility] Last Admin: 08/10/17 09:54 Dose: Not Given Docusate Sodium (Colace Liquid) 100 mg PO TID [facility] Heparin Sodium (Porcine) (Heparin) 5,000 units SC Q12 [facility] PRN Reason: Protocol Last Admin: 08/11/17 09:14 Dose: 5,000 units Meropenem/Sodium Chloride (Meropenem 1g/Ns 100ml Ivpb) 1 gm in 100 mls @ 100 mls/hr IVPB Q12 [facility] PRN Reason: Protocol Last Admin: 08/11/17 09:01 Dose: 100 mls/hr Losartan Potassium (Cozaar) 50 mg PO DAILY [facility] Memantine (Namenda) 5 mg PO BID [facility] Last Admin: 08/11/17 09:01 Dose: 5 mg Morphine Sulfate (Morphine) 2 mg IVP Q4H PRN PRN Reason: Pain, severe (8-10) Multivitamins/Minerals (Therapeutic-M Tab) 1 tab PO 0800 [facility] Last Admin: 08/11/17 09:01 Dose: 1 tab Pantoprazole Sodium (Protonix Inj) 40 mg IVP DAILY [facility] Last Admin: 08/11/17 09:00 Dose: 40 mg Polyethylene Glycol (Miralax) 17 gm PO BID [facility] Zinc Sulfate (Zinc Sulfate 220 Mg Cap) 220 mg PO DAILY [facility] Last Admin: 08/11/17 09:01 Dose: 220 mg - Labs Labs: 08/11/17 06:30 08/11/17 06:30 PT 16.3 SECONDS (9.4-12.5) H 08/07/17 09:30 INR 1.41 (0.93-1.08) H 08/07/17 09:30 APTT 42.8 Seconds (25.1-36.5) H 08/07/17 09:30 - Constitutional Appears: Chronically Ill - Head Exam Head Exam: NORMAL INSPECTION - Eye Exam Eye Exam: Normal appearance, PERRL - ENT Exam ENT Exam: Mucous Membranes Moist - Neck Exam Neck Exam: Normal Inspection - Respiratory Exam Respiratory Exam: Decreased Breath Sounds, NORMAL BREATHING PATTERN - Cardiovascular Exam Cardiovascular Exam: REGULAR RHYTHM, +S1, +S2 - GI/Abdominal Exam GI & Abdominal Exam: Firm, Tenderness, Hypoactive Bowel Sounds - Extremities Exam Extremities Exam: Normal Capillary Refill, Normal Inspection - Neurological Exam Neurological Exam: Altered - Skin Skin Exam: Dry, Warm Assessment and Plan - Assessment and Plan (Free Text) Assessment: 87 year old female with history of Parkinson disease, dementia, HTN who is admitted with sepsis, dehydrations,sacral ulcer s/p debridement, wound vac. Patients son Danyel and daughter in law Melody at bedside. Family has received input and treatment plans from surgical and medical teams. Son expressed frustration at having to deal with so many medical personnel. States he finds it difficult to determine priorities and goals of care based upon so much input. After lengthy discussion family indicated that they only want to deal with each problem as it develops. Family has been prepared for worst case scenario and verbalize understanding that patient is extremely ill and that despite medical interventions she may not improve. Family fully aware of possible outcomes and burdens involved in treatment measures. The patients Advance Directive is reviewed, it states that patient wants all life prolonging measures to be done until she reaches point of irreversible or terminal status. Therefore, she does want CPR/intubation>> withdrawal of life prolonging measures will occur at the point her condition is irreversible. Spiritual support offered. Time spent in goals of care and advance care planning discussion with family, 45 minutes Plan: Palliative support in establishing goals of care.
[2017-08-11] MEDS ORDERED: Iohexol 350 MG/100 ML VIAL ONE (13:51)
--- NOTE | 2017-08-11 16:49 | CT ---
PROCEDURE: CT Chest, Abdomen and Pelvis with intravenous contrast HISTORY: firm abdomen COMPARISON: No prior CT available for comparison. TECHNIQUE: Following oral and intravenous contrast administration, a CT examination of the abdomen and pelvis performed from the domes of the diaphragms to the symphysis pubis with reformatted datasets provided not only axial but also sagittal and coronal series. IV dose administered: Omnipaque 350, 100 cc Radiation dose: Total exam DLP = 789.92 mGy-cm. This CT exam was performed using one or more of the following dose reduction techniques: Automated exposure control, adjustment of the mA and/or kV according to patient size, and/or use of iterative reconstruction technique. FINDINGS: CT CHEST WITH CONTRAST: LUNGS: Limited dependent atelectasis appreciate the bilateral lower lobes. No definite alveolar infiltrate bilaterally. Two 3 mm nodules are seen very faintly at the right upper lobe in image 38 series 4 laterally. MEDIASTINUM: Thoracic inlet is remarkable only for nasogastric tube identified extending into the stomach with the tip not captured in this examination. Retained food or debris mildly distends the mid to distal esophagus. No significant lymphadenopathy. Normal caliber aorta and pulmonary arterial trunk. Relatively prominent for coronary artery calcifications are identified with cardiac size normal. Central airways appear clear. LYMPH NODES: As above. PLEURA: Trace bilateral pleural effusions are identified. No pneumothorax. BONES: Unremarkable. OTHER FINDINGS: None. CT ABDOMEN AND PELVIS: LIVER: Hepatic steatosis is noted diffusely. An 8 mm lucency seen the right lobe in the periphery laterally, too small to characterize. GALLBLADDER AND BILE DUCTS: Gallbladder is contracted and otherwise appears unremarkable. PANCREAS: Unremarkable. No gross lesion or ductal dilatation. SPLEEN: Unremarkable. ADRENALS: Unremarkable. No mass. KIDNEYS AND URETERS: Unremarkable. No hydronephrosis. No solid mass. VASCULATURE: Unremarkable. No aortic aneurysm. BOWEL: A nasogastric tube is identified terminating in the gastric fundus with a nonspecific lucency appreciated near the tip. The stomach is mildly distended with gas and retained oral contrast material/food. There is no bowel obstruction appreciated. Moderate retained fecal material seen at the left greater the right hemicolon with impaction of the rectum up to 8.5 cm. APPENDIX: Not clearly identified. Consider possible prior appendectomy. No CT evidence of appendicitis at this time peer PERITONEUM: Unremarkable. No free fluid. No free air. LYMPH NODES: Unremarkable. No enlarged lymph nodes. BLADDER: Urinary bladder is decompressed by Farrar catheter with the wall poorly evaluated. Pericystic reaction is in question may indicate an element of cystitis. Clinically correlate further. REPRODUCTIVE: Prior hysterectomy suggested. BONES: Sacral decubitus ulcer is identified with an element of presacral edema as well as edema superficial to the distal coccyx and sacrum. No overt bony erosion is appreciated to suggest infectious or inflammatory changes of the distal sacrum and coccyx. There is also trace reactive change seen at the posterior mid left buttocks extending into the left gluteus leslie muscle will peripheral enhancement surrounds lower density tissue suspicious for phlegmon though a small loculated abscess is not excluded. This area measures approximately 2.2 x 4.4 cm. OTHER FINDINGS: None. IMPRESSION: Trace bilateral pleural effusions are identified with minimal bilateral dependent atelectasis. No definite alveolar infiltrate pneumothorax or significant lymphadenopathy. 2 tiny pulmonary nodule seen the right upper lobe which are faint and could reflect atelectasis. Follow-up chest CT recommended in 1 year nevertheless. Nasogastric tube terminates in the gastric viscus which is partially decompressed. [id number] fecal impaction is encountered. No bowel obstruction, measure edema or ascites. Prior hysterectomy. Farrar catheter decompression of the urinary bladder with wall difficult to evaluate. Mural thickening is not excluded and trace pericystic reaction could reflect an element of cystitis. Clinically correlate. Other etiologies are possible as well. The sacral decubitus ulcers identified with edema extending superficial to the coccyx and distal sacrum as well as the presacral space without overt erosive bony change or periosteal reaction to suggest potential osteomyelitis. MRI is available follow-up as clinically warranted. 4.4 cm phlegmon is favored over abscess at the left gluteus leslie muscle versus myositis. Further clinical correlation is recommended here.
[2017-08-11] MEDS: Collagenase 250 Units/gm Ointment(30 gm) TOP SCH (17:43)
[2017-08-11] MEDS: POLYETHYLENE GLYCOL 3350 17 GM/Dose PACKET PO SCH (18:19)
[2017-08-11 18:41] LABS: PH,URINE 5.5 (4.7-8.0); URINE BILIRUBIN NEGATIVE (NEGATIVE); URINE BLOOD SMALL (NEGATIVE); URINE GLUCOSE (UA) 250 mg/dL (NEGATIVE); URINE LEUKOCYTE ESTERASE NEGATIVE Leu/uL (NEGATIVE); URINE NITRATE NEGATIVE (NEGATIVE); URINE PROTEIN 30 mg/dL (<30 mg/dL); URINE UROBILINOGEN 0.2 E.U./dL (<1 E.U./dL)
[2017-08-11 18:44] LABS: URINE APPEARANCE SL CLOUDY (CLEAR); URINE COLOR YELLOW (YELLOW)
[2017-08-11 18:54] LABS: URINE RBC 0 - 2 /hpf (0-2)
[2017-08-11 18:55] LABS: URINE BACTERIA MANY (NEG); URINE URIC ACID CRYSTALS OCC /hpf
--- NOTE | 2017-08-11 22:25 | PN ---
DATE: 08/11/2017 SUBJECTIVE: Patient was in bed, was seen early this morning in room 374, bed 2. Did have a fever last night. Overall, the patient's condition is poor. PHYSICAL EXAMINATION: VITAL SIGNS: Temperature is 100.4, blood pressure is 170/70, respiratory rate of 20, and heart rate of 91. HEENT: Unremarkable. NECK: Supple. LUNGS: Have decreased breath sounds. HEART: Normal S1, S2. ABDOMEN: Soft, nontender. LABORATORY EXAMINATION: Reveals a white count of 27,000, hemoglobin of 9, platelets of 376, with 89% granulocytosis, sed rate 124. Chemistry revels a BUN of 21, creatinine of 0.7, procalcitonin is 1.87. Urinalysis is noted. Influenza is negative. Blood cultures are negative from the 08/07/2017. Laboratory examination is noted. Patient had a CAT scan of the chest and CAT scan of the abdomen. There is hepatic steatosis. Gallbladder is contracted - unremarkable. The lungs; no definitive alveolar infiltrates, there are 2 nodules, which are 3 mm. Sacral decubiti - presacral area. The patient's operative note from the 08/09/2017 was reviewed. Tammy note is reviewed. Dr. Ortiz' note is reviewed. Review of the microbiology reveals the sacral is gram-negative rods, wound culture is E. coli, and there is also Enterococcus. E. coli in the urine is pansensitive. ASSESSMENT AND PLAN: An 87-year-old female with severe sepsis with Escherichia coli in the urine culture; the patient with Parkinson's, transient ischemic attack, hypertension, dyslipidemia. Blood cultures; Providencia in the blood, gram-negative parker in one bottle. Also Escherichia coli in the urine with sacral cultures with Escherichia coli, currently on meropenem. We will repeat hills cultures, blood, urine and sputum culture. Blood culture from the 08/07/2017 does show that the patient is sensitive to penicillin by beta-lactamase testing. We will renew the meropenem. Overall prognosis is quite poor for this patient with sepsis and bacteremia, with decubitus ulcer and leukocytosis. Most likely may need further debridement. Davy Casas MD
[2017-08-12] MEDS ORDERED: Acetaminophen 650mg/20.3ml solution UD NG PRN (01:32)
[2017-08-12 08:28] LABS: BASO # 0.04 K/mm3 (0.0-2.0); BASO % 0.2 % (0.0-3.0); EOS # 0.1 (0.0-0.7); EOS % 0.3 % (1.5-5.0); GRAN # 22.87 (1.4-6.5); GRAN % 88.4 % (50.0-68.0); HEMOGLOBIN 10.6 g/dL (12.0-16.0); LYMPH # 2.3 (1.2-3.4); MEAN CELL VOLUME 87.5 fl (80.0-105.0); MEAN CORPUSCULAR HEMOGLOBIN 28.1 pg (25.0-35.0); MEAN CORPUSCULAR HGB CONC 32.1 g/dl (31.0-37.0); MEAN PLATELET VOLUME 10.2 fl (7.0-11.0); MONO # 0.6 (0.1-0.6); MONO % 2.1 % (1.0-6.0); RBC 3.77 10^6/uL (3.5-6.1); RED CELL DISTRIBUTION WIDTH 14.7 % (11.5-14.5)
[2017-08-12 08:41] LABS: WHITE BLOOD COUNT 25.9 10^3/ul (4.5-11.0)
[2017-08-12 09:01] LABS: ALB/GLOB RATIO 0.6 (1.1-1.8); ALBUMIN 2.2 g/dL (3.0-4.8); ALT/SGPT 42 U/L (7-56); AST/SGOT 61 U/L (14-36); BLOOD UREA NITROGEN 19 mg/dL (7-21); GFR AFRICAN-AMERICAN > 60; GFR NON-AFRICAN AMERICAN > 60; MAGNESIUM 1.8 mg/dL (1.7-2.2)
[2017-08-12] MEDS ORDERED: Albuterol-Ipratrop 3 mg / 0.5 (3 ml) UD IH STA (09:29)
[2017-08-12] MEDS: Collagenase 250 Units/gm Ointment(30 gm) TOP SCH (10:07)
[2017-08-12] MEDS: POLYETHYLENE GLYCOL 3350 17 GM/Dose PACKET PO SCH ×2 (10:08→18:02)
[2017-08-12] MEDS: Carbidopa/Levodopa 50/200 CR PO SCH (10:17)
[2017-08-12] MEDS: Meropenem 1g/NS 100mL IVPB 1 GM/100 ML PIGGYBACK IVPB SCH ×2 (10:21→22:29)
--- NOTE | 2017-08-12 10:21 | CP.PCM.PN ---
<Ingris Ortiz - Last Filed: 08/12/17 18:26> Subjective - Date & Time of Evaluation Date of Evaluation: 08/12/17 Time of Evaluation: 08:30 - Subjective Subjective: Patient seen and examined at bedside this AM. Patient had fevers overnight, resolved this AM. Patient was noted to be in mild respiratory distress with increased respiratory effort but saturating 100%. Primary was called and a CXR ordered. Wound vac was changed at bedside with good seal attained. Patient tolerated the procedure well. Objective - Vital Signs/Intake and Output Vital Signs (last 24 hours): Temp Pulse Resp BP Pulse Ox 99.4 F 89 20 136/76 100 08/12/17 05:43 08/12/17 05:43 08/12/17 05:43 08/12/17 05:43 08/12/17 05:43 Intake and Output: 08/12/17 08/12/17 06:59 18:59 Intake Total 630 0 Output Total 450 450 Balance 180 -450 - Medications Medications: Current Medications Acetaminophen (Tylenol 650mg/20.3ml Solution Ud) 650 mg NG Q6H PRN PRN Reason: Fever >100.4 F Last Admin: 08/12/17 01:38 Dose: 650 mg Albuterol Sulfate (Albuterol 0.083% Inhal Kerri (2.5 Mg/3 Ml) Ud) 2.5 mg IH Q2H PRN PRN Reason: Shortness of Breath Aspirin (Ecotrin) 81 mg PO DAILY [facility] Last Admin: 08/11/17 09:01 Dose: 81 mg Atorvastatin Calcium (Lipitor) 10 mg PO DIN [facility] Last Admin: 08/11/17 18:19 Dose: 10 mg Carbidopa/Levodopa (Sinemet Cr) 1 tab PO DAILY [facility] Last Admin: 08/11/17 09:01 Dose: 1 tab Collagenase (Santyl) 0 gm TOP DAILY [facility] Last Admin: 08/12/17 10:07 Dose: Not Given Docusate Sodium (Colace Liquid) 100 mg PO TID [facility] Last Admin: 08/12/17 10:08 Dose: Not Given Heparin Sodium (Porcine) (Heparin) 5,000 units SC Q12 [facility] PRN Reason: Protocol Last Admin: 08/11/17 21:36 Dose: 5,000 units Meropenem/Sodium Chloride (Meropenem 1g/Ns 100ml Ivpb) 1 gm in 100 mls @ 100 mls/hr IVPB Q12 [facility] PRN Reason: Protocol Last Admin: 08/11/17 21:37 Dose: 100 mls/hr Losartan Potassium (Cozaar) 50 mg PO DAILY [facility] Memantine (Namenda) 5 mg PO BID [facility] Last Admin: 08/11/17 18:19 Dose: 5 mg Morphine Sulfate (Morphine) 2 mg IVP Q4H PRN PRN Reason: Pain, severe (8-10) Multivitamins/Minerals (Therapeutic-M Tab) 1 tab PO 0800 [facility] Last Admin: 08/11/17 09:01 Dose: 1 tab Pantoprazole Sodium (Protonix Inj) 40 mg IVP DAILY [facility] Last Admin: 08/11/17 09:00 Dose: 40 mg Polyethylene Glycol (Miralax) 17 gm PO BID [facility] Last Admin: 08/12/17 10:08 Dose: Not Given Zinc Sulfate (Zinc Sulfate 220 Mg Cap) 220 mg PO DAILY [facility] Last Admin: 08/11/17 09:01 Dose: 220 mg - Labs Labs: 08/12/17 08:00 08/12/17 08:00 PT 16.3 SECONDS (9.4-12.5) H 08/07/17 09:30 INR 1.41 (0.93-1.08) H 08/07/17 09:30 APTT 42.8 Seconds (25.1-36.5) H 08/07/17 09:30 - Constitutional Appears: In Acute Distress, Chronically Ill - Eye Exam Eye Exam: Normal appearance. absent: Conjunctival injection, Scleral icterus - ENT Exam ENT Exam: Mucous Membranes Moist, Normal Oropharynx - Respiratory Exam Respiratory Exam: Accessory Muscle Use, Wheezes, Respiratory Distress. absent: NORMAL BREATHING PATTERN - Cardiovascular Exam Cardiovascular Exam: Tachycardia - GI/Abdominal Exam GI & Abdominal Exam: Soft. absent: Distended, Tenderness - Back Exam Additional comments: stage 4 sacral decubitus ulcer approximately 10 cm in widest diameter down to the sacrum. Area of necrotic tissue at the base and the inferior left pole with purulent fluid openly draining from opened left gluteal abscess. no further areas of fluctuance or induration were appreciated. - Neurological Exam Neurological Exam: Altered - Psychiatric Exam Psychiatric exam: Flat Affect - Skin Skin Exam: Dry, Intact (except as noted above), Normal Color, Warm Assessment and Plan - Assessment and Plan (Free Text) Assessment: 87F POD#3 s/p debridement of stage 4 sacral decubitus ulcer and left gluteal/ perirectal abscess with wound vac placement changed wound vac at bedside revealing persistent necrotic tissue Plan: -Continue wound vac to continuous suction -OR on 08/15 for further debridement of sacral decubitus ulcer. -trend daily CBC -continue antibiotics per cultures sensitivities and ID recs -F/U intra-operative wound culture results: gran negative rods so far -Spoke with patient's son Zack on the phone extensively explaning the patient's current medical state, need for more surgery. Explained that patient has multiple serious medical problems going on right now including UTI and new poor respiratory status and is not currently improving despite aggressive treatment. Stated the patient has poor prognosis for recovery even with surgery and may not survive anesthesia. Son expressed understanding and stated he still wanted to proceed with surgery next week. He gave phone consent and spoke to two nurses who witnessed the consent in writing. Discussed with Dr. Megan Ortiz, PGY2 <Bill Ruiz - Last Filed: 08/13/17 14:53> Objective - Vital Signs/Intake and Output Vital Signs (last 24 hours): Temp Pulse Resp BP Pulse Ox 98.5 F 92 H 18 111/68 98 08/13/17 06:00 08/13/17 10:00 08/13/17 06:00 08/13/17 06:00 08/13/17 06:00 Intake and Output: 08/13/17 08/13/17 06:59 18:59 Intake Total 460 0 Output Total 300 Balance 460 -300 - Medications Medications: Current Medications Acetaminophen (Tylenol 650mg/20.3ml Solution Ud) 650 mg NG Q6H PRN PRN Reason: Fever >100.4 F Last Admin: 08/12/17 01:38 Dose: 650 mg Albuterol Sulfate (Albuterol 0.083% Inhal Kerri (2.5 Mg/3 Ml) Ud) 2.5 mg IH Q2H PRN PRN Reason: Shortness of Breath Last Admin: 08/12/17 14:05 Dose: 2.5 mg Aspirin (Ecotrin) 81 mg PO DAILY [facility] Last Admin: 08/13/17 10:25 Dose: 81 mg Atorvastatin Calcium (Lipitor) 10 mg PO DIN [facility] Last Admin: 08/12/17 18:07 Dose: 10 mg Carbidopa/Levodopa (Sinemet Cr) 1 tab PO DAILY [facility] Last Admin: 08/13/17 10:25 Dose: 1 tab Collagenase (Santyl) 0 gm TOP DAILY [facility] Last Admin: 08/13/17 11:29 Dose: Not Given Docusate Sodium (Colace Liquid) 100 mg PO TID [facility] Last Admin: 08/13/17 10:25 Dose: 100 mg Heparin Sodium (Porcine) (Heparin) 5,000 units SC Q12 [facility] PRN Reason: Protocol Last Admin: 08/13/17 10:25 Dose: 5,000 units Meropenem/Sodium Chloride (Meropenem 1g/Ns 100ml Ivpb) 1 gm in 100 mls @ 100 mls/hr IVPB Q12 [facility] PRN Reason: Protocol Last Admin: 08/13/17 10:25 Dose: 100 mls/hr Potassium Chloride/Dextrose/Sod Cl (Potassium Chl 40 Meq In D5-1/2ns) 1,000 mls @ 100 mls/hr IV .Q10H [facility] Losartan Potassium (Cozaar) 50 mg PO DAILY [facility] Memantine (Namenda) 5 mg PO BID [facility] Last Admin: 08/13/17 10:25 Dose: 5 mg Morphine Sulfate (Morphine) 2 mg IVP Q4H PRN PRN Reason: Pain, severe (8-10) Multivitamins/Minerals (Therapeutic-M Tab) 1 tab PO 0800 [facility] Last Admin: 08/13/17 07:58 Dose: 1 tab Pantoprazole Sodium (Protonix Inj) 40 mg IVP DAILY [facility] Last Admin: 08/13/17 10:25 Dose: 40 mg Polyethylene Glycol (Miralax) 17 gm PO BID [facility] Last Admin: 08/13/17 10:25 Dose: 17 gm Zinc Sulfate (Zinc Sulfate 220 Mg Cap) 220 mg PO DAILY [facility] Last Admin: 08/13/17 10:25 Dose: 220 mg - Labs Labs: 08/13/17 07:00 08/13/17 07:00 PT 16.3 SECONDS (9.4-12.5) H 08/07/17 09:30 INR 1.41 (0.93-1.08) H 08/07/17 09:30 APTT 42.8 Seconds (25.1-36.5) H 08/07/17 09:30 <Edilson Guzman - Last Filed: 08/15/17 20:38> Objective - Vital Signs/Intake and Output Vital Signs (last 24 hours): Temp Pulse Resp BP Pulse Ox 97.5 F L 80 18 139/68 99 08/15/17 12:00 08/15/17 12:00 08/15/17 12:00 08/15/17 12:00 08/15/17 09:49 Intake and Output: 08/15/17 08/16/17 18:59 06:59 Intake Total 0 Output Total 450 Balance -450 - Medications Medications: Current Medications Acetaminophen (Tylenol 650mg/20.3ml Solution Ud) 650 mg NG Q6H PRN PRN Reason: Fever >100.4 F Last Admin: 08/12/17 01:38 Dose: 650 mg Albuterol Sulfate (Albuterol 0.083% Inhal Kerri (2.5 Mg/3 Ml) Ud) 2.5 mg IH Q2H PRN PRN Reason: Shortness of Breath Last Admin: 08/12/17 14:05 Dose: 2.5 mg Aspirin (Ecotrin) 81 mg PO DAILY [facility] Last Admin: 08/15/17 10:23 Dose: Not Given Atorvastatin Calcium (Lipitor) 10 mg PO DIN [facility] Last Admin: 08/15/17 17:46 Dose: Not Given Carbidopa/Levodopa (Sinemet Cr) 1 tab PO DAILY [facility] Last Admin: 08/15/17 10:24 Dose: Not Given Collagenase (Santyl) 0 gm TOP DAILY [facility] Last Admin: 08/15/17 10:47 Dose: Not Given Heparin Sodium (Porcine) (Heparin) 5,000 units SC Q12 [facility] PRN Reason: Protocol Last Admin: 08/15/17 10:46 Dose: 5,000 units Meropenem/Sodium Chloride (Meropenem 1g/Ns 100ml Ivpb) 1 gm in 100 mls @ 100 mls/hr IVPB Q12 [facility] PRN Reason: Protocol Last Admin: 08/15/17 10:46 Dose: 100 mls/hr Potassium Phosphate 10 mmole/ (Dextrose/Sodium Chloride) 1,003.3333 mls @ 75 mls/hr IV .[id number] [facility] Last Admin: 08/15/17 19:37 Dose: 75 mls/hr Losartan Potassium (Cozaar) 50 mg PO DAILY [facility] Memantine (Namenda) 5 mg PO BID [facility] Last Admin: 08/15/17 10:23 Dose: Not Given Multivitamins/Minerals (Therapeutic-M Tab) 1 tab PO 0800 [facility] Last Admin: 08/15/17 08:00 Dose: Not Given Ondansetron HCl (Zofran Inj) 4 mg IVP ONCE PRN PRN Reason: Nausea/Vomiting Pantoprazole Sodium (Protonix Inj) 40 mg IVP DAILY [facility] Last Admin: 08/15/17 10:46 Dose: 40 mg Zinc Sulfate (Zinc Sulfate 220 Mg Cap) 220 mg PO DAILY [facility] Last Admin: 08/15/17 10:24 Dose: Not Given - Labs Labs: 08/15/17 13:30 08/15/17 13:30 PT 16.3 SECONDS (9.4-12.5) H 08/07/17 09:30 INR 1.41 (0.93-1.08) H 08/07/17 09:30 APTT 42.8 Seconds (25.1-36.5) H 08/07/17 09:30 Attending/Attestation - Attestation I have personally seen and examined this patient.: Yes I have fully participated in the care of the patient.: Yes I have reviewed all pertinent clinical information, including history, physical exam and plan: Yes Notes (Text): Pt was seen and examined at bedside Agree with above note and assessment Local wound care Redebridement on Monday Consent c/w IV antibiotics
[2017-08-12] MEDS: Multivitamin With Minerals Tab PO SCH (10:24)
--- NOTE | 2017-08-12 10:36 | RAD ---
HISTORY: labored breathing COMPARISON: 08/10/2017 FINDINGS: LUNGS: No active pulmonary disease. PLEURA: No significant pleural effusion identified, no pneumothorax apparent. CARDIOVASCULAR: Normal heart size. No congestive change. Nasogastric feeding tube extends beneath the diaphragm. OSSEOUS STRUCTURES: No significant abnormalities. VISUALIZED UPPER ABDOMEN: Normal. OTHER FINDINGS: None. IMPRESSION: No active disease.
--- NOTE | 2017-08-12 12:08 | CP.PCM.PN ---
<Jesus Alberto Watt - Last Filed: 08/12/17 13:54> Subjective - Date & Time of Evaluation Date of Evaluation: 08/12/17 Time of Evaluation: 09:00 - Subjective Subjective: Patient seen and evaluated at bedside. Patient seems less responsive than yesterday and is noted to have labor breathing. Discussed with nurse, pulse ox is 100%, chest X-ray was ordered, and duoneb treatment was given. Objective - Vital Signs/Intake and Output Vital Signs (last 24 hours): Temp Pulse Resp BP Pulse Ox 99.4 F 89 20 136/76 100 08/12/17 05:43 08/12/17 05:43 08/12/17 05:43 08/12/17 05:43 08/12/17 05:43 Intake and Output: 08/12/17 08/12/17 06:59 18:59 Intake Total 630 0 Output Total 450 450 Balance 180 -450 - Medications Medications: Current Medications Acetaminophen (Tylenol 650mg/20.3ml Solution Ud) 650 mg NG Q6H PRN PRN Reason: Fever >100.4 F Last Admin: 08/12/17 01:38 Dose: 650 mg Albuterol Sulfate (Albuterol 0.083% Inhal Kerri (2.5 Mg/3 Ml) Ud) 2.5 mg IH Q2H PRN PRN Reason: Shortness of Breath Aspirin (Ecotrin) 81 mg PO DAILY [facility] Last Admin: 08/12/17 10:18 Dose: 81 mg Atorvastatin Calcium (Lipitor) 10 mg PO DIN [facility] Last Admin: 08/11/17 18:19 Dose: 10 mg Carbidopa/Levodopa (Sinemet Cr) 1 tab PO DAILY [facility] Last Admin: 08/12/17 10:17 Dose: 1 tab Collagenase (Santyl) 0 gm TOP DAILY [facility] Last Admin: 08/12/17 10:07 Dose: Not Given Docusate Sodium (Colace Liquid) 100 mg PO TID [facility] Last Admin: 08/12/17 10:08 Dose: Not Given Heparin Sodium (Porcine) (Heparin) 5,000 units SC Q12 [facility] PRN Reason: Protocol Last Admin: 08/12/17 10:20 Dose: 5,000 units Meropenem/Sodium Chloride (Meropenem 1g/Ns 100ml Ivpb) 1 gm in 100 mls @ 100 mls/hr IVPB Q12 [facility]LE PRN Reason: Protocol Last Admin: 08/12/17 10:21 Dose: 100 mls/hr Losartan Potassium (Cozaar) 50 mg PO DAILY [facility] Memantine (Namenda) 5 mg PO BID [facility] Last Admin: 08/12/17 10:18 Dose: 5 mg Morphine Sulfate (Morphine) 2 mg IVP Q4H PRN PRN Reason: Pain, severe (8-10) Multivitamins/Minerals (Therapeutic-M Tab) 1 tab PO 0800 [facility] Last Admin: 08/12/17 10:24 Dose: 1 tab Pantoprazole Sodium (Protonix Inj) 40 mg IVP DAILY [facility] Last Admin: 08/12/17 10:21 Dose: 40 mg Polyethylene Glycol (Miralax) 17 gm PO BID [facility] Last Admin: 08/12/17 10:08 Dose: Not Given Zinc Sulfate (Zinc Sulfate 220 Mg Cap) 220 mg PO DAILY [facility] Last Admin: 08/12/17 10:24 Dose: 220 mg - Labs Labs: 08/12/17 08:00 08/12/17 08:00 PT 16.3 SECONDS (9.4-12.5) H 08/07/17 09:30 INR 1.41 (0.93-1.08) H 08/07/17 09:30 APTT 42.8 Seconds (25.1-36.5) H 08/07/17 09:30 - Constitutional Appears: Non-toxic, No Acute Distress - Head Exam Head Exam: ATRAUMATIC, NORMAL INSPECTION, NORMOCEPHALIC - Eye Exam Eye Exam: EOMI, Normal appearance - ENT Exam ENT Exam: Mucous Membranes Moist, Normal Exam - Neck Exam Neck Exam: Normal Inspection - Respiratory Exam Respiratory Exam: Clear to Ausculation Bilateral, NORMAL BREATHING PATTERN - Cardiovascular Exam Cardiovascular Exam: REGULAR RHYTHM, +S1 - GI/Abdominal Exam GI & Abdominal Exam: Soft, Diminished Bowel Sounds - Extremities Exam Additional comments: right heel bed sore - Back Exam Additional comments: sacral ulcer status post debridement on 08/10/[address] - Neurological Exam Neurological Exam: Altered. absent: Alert, Oriented x3 - Skin Skin Exam: Normal Color, Warm Assessment and Plan - Assessment and Plan (Free Text) Assessment: This is an 87yo female with past medical history of Parkinson's, HTN, HLD, TIA admitted for sepsis secondary to sacral decubitus ulcer as well as hypernatremia secondary to poor PO intake. Debridement performed in the OR on . Per report, Stage 4 sacral decubitus ulcer, osteomyelitis of the sacrum, perirectal and gluteal abscess. Patient lethargic more than before today, and repeat Head CT was ordered but did not show any changes. Dobhoff tube placed and tube feeds started. Per family, they request all possible intervention for now. Plan: 1. Sepsis - secondary to sacral decubitus ulcer stage 4 per surgery with evidence of osteomyelitis of the sacrum, perirectal and gluteal abscess - Lactate: 3.2 - ID consulted- Merrem on board - Surgery consulted for wound debridement. - Failed swallow eval. - Dobhoff tube placed and tube feeds were started however will hold off on tube feedings until aspiration has been ruled out. - urine cultures grew E. coli - decubitus culture grew E.coli and E. faecalis - Blood cultures with gram negative rods - Multivitamin, Zinc - Tylenol prn fever - Patient experienced labored breathing, duonebs given and CXR ordered; will follow up with results 2. LEONARDA and Hypernatremia - Secondary to poor PO intake - D5W @100 cc/hour - Nephrology consulted - urine osmolality 851 - continue to monitor 3. HTN - BP normal - Will hold BP meds for now considering trend in vitals 4. HLD - Continue ASA and Lipitor 5. Parkinson's - Sinemet, Namenda - PT eval 6. Hypokalemia - resolved 7. Hypophosphatemia - repleted - continue to monitor 8. Abdominal Distention - Possibly due to constipation--miralax added - Follow up CT chest/abdomen/pelvis with IV & PO contrast GI ppx: Protonix DVT ppx: Heparin, SCDs Disposition: Stage 4 sacral decubitus ulcer, osteomyelitis of the sacrum, perirectal and gluteal abscess was found. Per family, they wish for full code at this time. They will consider PEG tube at a later date. Due to abdominal distention, CT scan was ordered. Seen and discussed with Dr. Bill Ruiz. <Bill Ruiz - Last Filed: 08/12/17 14:23> Objective - Vital Signs/Intake and Output Vital Signs (last 24 hours): Temp Pulse Resp BP Pulse Ox 98.0 F 94 H 20 117/68 100 08/12/17 12:00 08/12/17 12:00 08/12/17 12:00 08/12/17 12:00 08/12/17 05:43 Intake and Output: 08/12/17 08/12/17 06:59 18:59 Intake Total 630 0 Output Total 450 450 Balance 180 -450 - Medications Medications: Current Medications Acetaminophen (Tylenol 650mg/20.3ml Solution Ud) 650 mg NG Q6H PRN PRN Reason: Fever >100.4 F Last Admin: 08/12/17 01:38 Dose: 650 mg Albuterol Sulfate (Albuterol 0.083% Inhal Kerri (2.5 Mg/3 Ml) Ud) 2.5 mg IH Q2H PRN PRN Reason: Shortness of Breath Aspirin (Ecotrin) 81 mg PO DAILY [facility] Last Admin: 08/12/17 10:18 Dose: 81 mg Atorvastatin Calcium (Lipitor) 10 mg PO DIN [facility] Last Admin: 08/11/17 18:19 Dose: 10 mg Carbidopa/Levodopa (Sinemet Cr) 1 tab PO DAILY [facility] Last Admin: 08/12/17 10:17 Dose: 1 tab Collagenase (Santyl) 0 gm TOP DAILY [facility] Last Admin: 08/12/17 10:07 Dose: Not Given Docusate Sodium (Colace Liquid) 100 mg PO TID [facility] Last Admin: 08/12/17 13:12 Dose: Not Given Heparin Sodium (Porcine) (Heparin) 5,000 units SC Q12 [facility] PRN Reason: Protocol Last Admin: 08/12/17 10:20 Dose: 5,000 units Meropenem/Sodium Chloride (Meropenem 1g/Ns 100ml Ivpb) 1 gm in 100 mls @ 100 mls/hr IVPB Q12 [facility] PRN Reason: Protocol Last Admin: 08/12/17 10:21 Dose: 100 mls/hr Dextrose (Dextrose 5% In Water 1000 Ml) 1,000 mls @ 100 mls/hr IV .Q10H [facility] Losartan Potassium (Cozaar) 50 mg PO DAILY [facility] Memantine (Namenda) 5 mg PO BID [facility] Last Admin: 08/12/17 10:18 Dose: 5 mg Morphine Sulfate (Morphine) 2 mg IVP Q4H PRN PRN Reason: Pain, severe (8-10) Multivitamins/Minerals (Therapeutic-M Tab) 1 tab PO 0800 [facility] Last Admin: 08/12/17 10:24 Dose: 1 tab Pantoprazole Sodium (Protonix Inj) 40 mg IVP DAILY [facility] Last Admin: 08/12/17 10:21 Dose: 40 mg Polyethylene Glycol (Miralax) 17 gm PO BID [facility] Last Admin: 08/12/17 10:08 Dose: Not Given Zinc Sulfate (Zinc Sulfate 220 Mg Cap) 220 mg PO DAILY [facility] Last Admin: 08/12/17 10:24 Dose: 220 mg - Labs Labs: 08/12/17 08:00 08/12/17 08:00 PT 16.3 SECONDS (9.4-12.5) H 08/07/17 09:30 INR 1.41 (0.93-1.08) H 08/07/17 09:30 APTT 42.8 Seconds (25.1-36.5) H 08/07/17 09:30 Attending/Attestation - Attestation I have personally seen and examined this patient.: Yes I have fully participated in the care of the patient.: Yes I have reviewed all pertinent clinical information, including history, physical exam and plan: Yes Notes (Text): I have seen and examined the patient at bedside. Agree with the above note with the following additions/ exceptions: Briefly this is 87 year old female with history of Parkinson's, advanced dementia, HTN, HLD, TIA who was admitted for AMS. Family reported fever, chills, diaphoresis and found to have sacral decubitus ulcer which is most likely the source of fever. One of Blood cultures bottle grew prevotella. Wound culture reveals Ecoli and E Fecalis. Intraoperative cultures grew EColi. Urine culture revealed EColi. Patient still feels very weak, fatigued. VS all within normal limits. She has been having persistent fevers. Last night patient had a temp of 101.5. CT abdomen and pelvis was not significant. Continue meropenem. . Patient underwent sacral wound debridement and she was found to have osteomyelitis of sacrum, preeti rectal and gluteal abscess. Wound vac in place. Patient may need further debridement. She also had LEONARDA and dehydration which has resolved. Her hyponatremia has resolved as well. Continue to hold BP meds and keep NPO until patient is more awake, alert and passes swallow eval. Palliative care consult appreciated. Patient has advance directive and this was discussed with the family. Patient is full code as of now. Patient has labored breathing today. Sats are 100%. Will do CXR and hold feeds for now. Prognosis is poor. Upon discharge patient will follow up with Dr Carter. Dr Bill Ruiz
--- NOTE | 2017-08-12 14:11 | PN ---
DATE: 08/12/2017 SUBJECTIVE: The patient is seen lying in bed. She is lethargic, moans or grimaces to deep pain. PHYSICAL EXAMINATION GENERAL: Elderly lady lying in bed. VITAL SIGNS: Blood pressure 136/76, heart rate 89, respiratory rate 20, temperature 99.4, T-max is 101.5. HEENT: Normocephalic, atraumatic, positive pallor. NECK: Supple, no JVD. LUNGS: Bilateral equal air entry, bilateral equal expansion. CARDIAC: S1 and S2, regular rate and rhythm, no murmur, no rub. ABDOMEN: Soft, nondistended, nontender, bowel sounds present. EXTREMITIES: A 1+ pitting edema of the lower extremities. INTAKE AND OUTPUT: 630/450. LABORATORY DATA: WBC , hemoglobin 10.6, hematocrit 33, platelets 308. Sodium 138, potassium 3.9, chloride 107, CO2 of 24, BUN 19, creatinine 0.7, glucose 168, calcium 8.0, phosphorus 3.1, magnesium 1.8, AST 61, ALT 42, albumin 2.2. Chest x-ray; no active disease. CURRENT MEDICATIONS: Albuterol, Colace, losartan 50, Ecotrin, heparin, Lipitor 10, meropenem 1 g q. 12, MiraLax, morphine, Namenda, Protonix, carbidopa, Tylenol, zinc sulfate. ASSESSMENT: 1. Hypernatremia, resolved, secondary to dehydration. 2. Sepsis. 3. Escherichia coli urinary tract infection. 4. Sacral osteomyelitis. 5. Parkinson's. 6. Dementia. 7. Hypertension. PLAN: 1. The patient is febrile again, repeat cultures? 2. Continue antibiotics for osteomyelitis. 3. Blood pressure is well-controlled, continue current antihypertensives including Cozaar 50. 4. The patient is stable from the renal standpoint. Sharonda Del Rio MD
[2017-08-12 17:39] LABS: ARTERIAL BLOOD GAS HCO3 22.2 mmol/L (21-28); ARTERIAL BLOOD GAS HEMOGLOBIN 10.1 g/dL (11.7-17.4); ARTERIAL BLOOD GAS O2 CAPACITY 14.1 mL/dl (16-24); ARTERIAL BLOOD GAS O2 CONTENT 13.9 ML/dl (15-23); ARTERIAL BLOOD GAS O2 SAT 98.7 % (95-98); ARTERIAL BLOOD GAS PCO2 32 mm/Hg (35-45); ARTERIAL BLOOD GAS PH 7.45 (7.35-7.45); ARTERIAL BLOOD GAS TCO2 23.2 mmol.L (22-28)
--- NOTE | 2017-08-13 02:05 | PN ---
DATE: 08/12/2017 SUBJECTIVE: Patient is in bed, in no acute distress, nontoxic. PHYSICAL EXAMINATION: VITAL SIGNS: Temperature is 99, T-max is 101, heart rate of 102, blood pressure is 136/70, respiratory rate of 20. HEENT: Unremarkable. NECK: Supple. LUNGS: Have decreased breath sound. HEART: Normal S1, S2. ABDOMEN: Soft. LABORATORY DATA: Reveals white count of 25,900, hemoglobin of 10. BUN of 19, creatinine of 0.7, procalcitonin 0.69. Urinalysis is noted. Serology is noted. Microbiology reveals the patient's decubitus culture is noted; the blood cultures are noted. Stool for C. diff. antigen and toxin are negative. Patient's chest x-ray: Lung, no active disease. ASSESSMENT AND PLAN: She is an 87-year-old female, admitted with severe sepsis with Escherichia coli in the urine, Parkinson disease, transient ischemic attack, hypertension, dyslipidemia. Blood cultures are positive for Providencia gram-negative parker in the blood and leucocytosis with sepsis and bacteriemia, decubitus ulcer, and persistent leukocytosis. Overall prognosis quiet poor. We will continue meropenem. Local wound care. Davy Casas MD
[2017-08-13 07:53] LABS: BASO # 0.02 K/mm3 (0.0-2.0); BASO % 0.1 % (0.0-3.0); EOS # 0.1 (0.0-0.7); EOS % 0.4 % (1.5-5.0); GRAN # 17.33 (1.4-6.5); GRAN % 87.3 % (50.0-68.0); LYMPH # 1.9 (1.2-3.4); LYMPH % 9.4 % (22.0-35.0); MEAN CELL VOLUME 86.2 fl (80.0-105.0); MEAN CORPUSCULAR HEMOGLOBIN 27.5 pg (25.0-35.0); MEAN CORPUSCULAR HGB CONC 31.9 g/dl (31.0-37.0); MEAN PLATELET VOLUME 9.4 fl (7.0-11.0); MONO # 0.6 (0.1-0.6); MONO % 2.8 % (1.0-6.0); RBC 3.27 10^6/uL (3.5-6.1); RED CELL DISTRIBUTION WIDTH 14.5 % (11.5-14.5); WHITE BLOOD COUNT 19.9 10^3/ul (4.5-11.0)
[2017-08-13] MEDS: Multivitamin With Minerals Tab PO SCH (07:58)
[2017-08-13 08:23] LABS: ALB/GLOB RATIO 0.6 (1.1-1.8); ALBUMIN 2.1 g/dL (3.0-4.8); CALCIUM 8.2 mg/dL (8.4-10.5); MAGNESIUM 2.1 mg/dL (1.7-2.2)
[2017-08-13] MEDS: Meropenem 1g/NS 100mL IVPB 1 GM/100 ML PIGGYBACK IVPB SCH ×2 (10:25→21:18)
[2017-08-13] MEDS: POLYETHYLENE GLYCOL 3350 17 GM/Dose PACKET PO SCH ×2 (10:25→18:14)
[2017-08-13] MEDS: Carbidopa/Levodopa 50/200 CR PO SCH (10:25)
[2017-08-13] MEDS: Collagenase 250 Units/gm Ointment(30 gm) TOP SCH (11:29)
--- NOTE | 2017-08-13 13:08 | CP.PCM.PN ---
<Jesus Alberto Watt - Last Filed: 08/13/17 13:23> Subjective - Date & Time of Evaluation Date of Evaluation: 08/13/17 Time of Evaluation: 08:15 - Subjective Subjective: Patient seen and examined at bedside. Labored breathing continues however is improving. Patient arousable this morning. Opened her eyes and said she is fine when asked how she is doing. ROS unobtainable due to patient's mentation. Objective - Vital Signs/Intake and Output Vital Signs (last 24 hours): Temp Pulse Resp BP Pulse Ox 98.5 F 92 H 18 111/68 98 08/13/17 06:00 08/13/17 10:00 08/13/17 06:00 08/13/17 06:00 08/13/17 06:00 Intake and Output: 08/13/17 08/13/17 06:59 18:59 Intake Total 460 0 Output Total 300 Balance 460 -300 - Medications Medications: Current Medications Acetaminophen (Tylenol 650mg/20.3ml Solution Ud) 650 mg NG Q6H PRN PRN Reason: Fever >100.4 F Last Admin: 08/12/17 01:38 Dose: 650 mg Albuterol Sulfate (Albuterol 0.083% Inhal Kerri (2.5 Mg/3 Ml) Ud) 2.5 mg IH Q2H PRN PRN Reason: Shortness of Breath Last Admin: 08/12/17 14:05 Dose: 2.5 mg Aspirin (Ecotrin) 81 mg PO DAILY [facility] Last Admin: 08/13/17 10:25 Dose: 81 mg Atorvastatin Calcium (Lipitor) 10 mg PO DIN [facility] Last Admin: 08/12/17 18:07 Dose: 10 mg Carbidopa/Levodopa (Sinemet Cr) 1 tab PO DAILY [facility] Last Admin: 08/13/17 10:25 Dose: 1 tab Collagenase (Santyl) 0 gm TOP DAILY [facility] Last Admin: 08/13/17 11:29 Dose: Not Given Docusate Sodium (Colace Liquid) 100 mg PO TID [facility] Last Admin: 08/13/17 10:25 Dose: 100 mg Heparin Sodium (Porcine) (Heparin) 5,000 units SC Q12 [facility] PRN Reason: Protocol Last Admin: 08/13/17 10:25 Dose: 5,000 units Meropenem/Sodium Chloride (Meropenem 1g/Ns 100ml Ivpb) 1 gm in 100 mls @ 100 mls/hr IVPB Q12 [facility] PRN Reason: Protocol Last Admin: 08/13/17 10:25 Dose: 100 mls/hr Potassium Chloride (Potassium Chloride 20 Meq/100 Ml) 20 meq in 100 mls @ 50 mls/hr IVPB Q2H [facility] Stop: 08/13/17 13:14 Last Admin: 08/13/17 10:24 Dose: 50 mls/hr Potassium Chloride/Dextrose/Sod Cl (Potassium Chl 40 Meq In D5-1/2ns) 1,000 mls @ 100 mls/hr IV .Q10H [facility] Losartan Potassium (Cozaar) 50 mg PO DAILY [facility] Memantine (Namenda) 5 mg PO BID [facility] Last Admin: 08/13/17 10:25 Dose: 5 mg Morphine Sulfate (Morphine) 2 mg IVP Q4H PRN PRN Reason: Pain, severe (8-10) Multivitamins/Minerals (Therapeutic-M Tab) 1 tab PO 0800 [facility] Last Admin: 08/13/17 07:58 Dose: 1 tab Pantoprazole Sodium (Protonix Inj) 40 mg IVP DAILY [facility] Last Admin: 08/13/17 10:25 Dose: 40 mg Polyethylene Glycol (Miralax) 17 gm PO BID [facility] Last Admin: 08/13/17 10:25 Dose: 17 gm Zinc Sulfate (Zinc Sulfate 220 Mg Cap) 220 mg PO DAILY [facility] Last Admin: 08/13/17 10:25 Dose: 220 mg - Labs Labs: 08/13/17 07:00 08/13/17 07:00 PT 16.3 SECONDS (9.4-12.5) H 08/07/17 09:30 INR 1.41 (0.93-1.08) H 08/07/17 09:30 APTT 42.8 Seconds (25.1-36.5) H 08/07/17 09:30 - Constitutional Appears: Non-toxic, No Acute Distress - Head Exam Head Exam: ATRAUMATIC, NORMAL INSPECTION, NORMOCEPHALIC - Eye Exam Eye Exam: Normal appearance - ENT Exam ENT Exam: Mucous Membranes Dry - Neck Exam Neck Exam: Normal Inspection - Respiratory Exam Respiratory Exam: Clear to Ausculation Bilateral, NORMAL BREATHING PATTERN. absent: Rales, Rhonchi, Wheezes - Cardiovascular Exam Cardiovascular Exam: REGULAR RHYTHM, +S1, +S2 - GI/Abdominal Exam GI & Abdominal Exam: Soft, Diminished Bowel Sounds - Back Exam Additional comments: sacral ulcer status post debridement with wound vac in place - Neurological Exam Neurological Exam: Alert, Awake, CN II-XII Intact - Skin Skin Exam: Normal Color, Warm Assessment and Plan - Assessment and Plan (Free Text) Assessment: This is an 87yo female with past medical history of Parkinson's, HTN, HLD, TIA admitted for sepsis secondary to sacral decubitus ulcer as well as hypernatremia secondary to poor PO intake. Debridement performed in the OR on . Per report, Stage 4 sacral decubitus ulcer, osteomyelitis of the sacrum, perirectal and gluteal abscess. Patient lethargic more than before today, and repeat Head CT was ordered but did not show any changes. Dobhoff tube placed and tube feeds started. Per family, they request all possible intervention for now. Plan: 1. Sepsis - secondary to sacral decubitus ulcer stage 4 per surgery with evidence of osteomyelitis of the sacrum, perirectal and gluteal abscess - Lactate: 3.2 - ID consulted- Merrem on board - As per surgery patient will undergo tentative debridement tomorrow - Failed swallow eval. - Dobhoff tube placed and tube feeds will continue at an increased rate since aspiration is ruled out - urine cultures grew E. coli - decubitus culture grew E.coli and E. faecalis - Blood cultures with gram negative rods - Continue with multivitamin, Zinc - Tylenol prn fever - Patient experienced labored breathing, duonebs given and CXR ordered is negative - Patient's white blood cell count is down trending and patient had been afebrile. Continue to monitor. 2. LEONARDA and Hypernatremia - Secondary to poor PO intake, creatinine is bumping up, patient will be placed on IVF - Nephrology consulted - urine osmolality 851 - continue to monitor 3. HTN - BP normal - Will hold BP meds for now considering trend in vitals 4. HLD - Continue ASA and Lipitor 5. Parkinson's - Sinemet, Namenda - PT eval 6. Hypokalemia - continue to monitor and replete, check mag 7. Hypophosphatemia - repleted - continue to monitor 8. Abdominal Distention - Possibly due to constipation--miralax added - Follow up CT chest/abdomen/pelvis with IV & PO contrast GI ppx: Protonix DVT ppx: Heparin, SCDs Disposition: Stage 4 sacral decubitus ulcer, osteomyelitis of the sacrum, perirectal and gluteal abscess was found. Per family, they wish for full code at this time. They will consider PEG tube at a later date. Due to abdominal distention, CT scan was ordered. Seen and discussed with Dr. Bill Ruiz. <Bill Ruiz B - Last Filed: 08/13/17 14:41> Objective - Vital Signs/Intake and Output Vital Signs (last 24 hours): Temp Pulse Resp BP Pulse Ox 98.5 F 92 H 18 111/68 98 08/13/17 06:00 08/13/17 10:00 08/13/17 06:00 08/13/17 06:00 08/13/17 06:00 Intake and Output: 08/13/17 08/13/17 06:59 18:59 Intake Total 460 0 Output Total 300 Balance 460 -300 - Medications Medications: Current Medications Acetaminophen (Tylenol 650mg/20.3ml Solution Ud) 650 mg NG Q6H PRN PRN Reason: Fever >100.4 F Last Admin: 08/12/17 01:38 Dose: 650 mg Albuterol Sulfate (Albuterol 0.083% Inhal Kerri (2.5 Mg/3 Ml) Ud) 2.5 mg IH Q2H PRN PRN Reason: Shortness of Breath Last Admin: 08/12/17 14:05 Dose: 2.5 mg Aspirin (Ecotrin) 81 mg PO DAILY [facility] Last Admin: 08/13/17 10:25 Dose: 81 mg Atorvastatin Calcium (Lipitor) 10 mg PO DIN [facility] Last Admin: 08/12/17 18:07 Dose: 10 mg Carbidopa/Levodopa (Sinemet Cr) 1 tab PO DAILY [facility] Last Admin: 08/13/17 10:25 Dose: 1 tab Collagenase (Santyl) 0 gm TOP DAILY [facility] Last Admin: 08/13/17 11:29 Dose: Not Given Docusate Sodium (Colace Liquid) 100 mg PO TID [facility] Last Admin: 08/13/17 10:25 Dose: 100 mg Heparin Sodium (Porcine) (Heparin) 5,000 units SC Q12 [facility] PRN Reason: Protocol Last Admin: 08/13/17 10:25 Dose: 5,000 units Meropenem/Sodium Chloride (Meropenem 1g/Ns 100ml Ivpb) 1 gm in 100 mls @ 100 mls/hr IVPB Q12 [facility] PRN Reason: Protocol Last Admin: 08/13/17 10:25 Dose: 100 mls/hr Potassium Chloride/Dextrose/Sod Cl (Potassium Chl 40 Meq In D5-1/2ns) 1,000 mls @ 100 mls/hr IV .Q10H [facility] Losartan Potassium (Cozaar) 50 mg PO DAILY [facility] Memantine (Namenda) 5 mg PO BID [facility] Last Admin: 08/13/17 10:25 Dose: 5 mg Morphine Sulfate (Morphine) 2 mg IVP Q4H PRN PRN Reason: Pain, severe (8-10) Multivitamins/Minerals (Therapeutic-M Tab) 1 tab PO 0800 [facility] Last Admin: 08/13/17 07:58 Dose: 1 tab Pantoprazole Sodium (Protonix Inj) 40 mg IVP DAILY [facility] Last Admin: 08/13/17 10:25 Dose: 40 mg Polyethylene Glycol (Miralax) 17 gm PO BID [facility] Last Admin: 08/13/17 10:25 Dose: 17 gm Zinc Sulfate (Zinc Sulfate 220 Mg Cap) 220 mg PO DAILY [facility] Last Admin: 08/13/17 10:25 Dose: 220 mg - Labs Labs: 08/13/17 07:00 08/13/17 07:00 PT 16.3 SECONDS (9.4-12.5) H 08/07/17 09:30 INR 1.41 (0.93-1.08) H 08/07/17 09:30 APTT 42.8 Seconds (25.1-36.5) H 08/07/17 09:30 Attending/Attestation - Attestation I have personally seen and examined this patient.: Yes I have fully participated in the care of the patient.: Yes I have reviewed all pertinent clinical information, including history, physical exam and plan: Yes Notes (Text): I have seen and examined the patient at bedside. Agree with the above note with the following additions/ exceptions: Briefly this is 87 year old female with history of Parkinson's, advanced dementia, HTN, HLD, TIA who was admitted for AMS. Family reported fever, chills, diaphoresis and found to have sacral decubitus ulcer which was most likely the source of fever. One of Blood cultures bottle grew prevotella. Wound culture reveals Ecoli and E Fecalis. Intraoperative cultures grew EColi. Urine culture revealed EColi. Patient still feels very weak, fatigued. VS all within normal limits. She has been afebrile since yesterday. Leukocytosis also improved slightly. CT abdomen and pelvis was not significant. Continue meropenem. Patient underwent sacral wound debridement and she was found to have osteomyelitis of sacrum, preeti rectal and gluteal abscess. Wound vac in place. Plan for possible further debridement tomorrow. She also had LEONARDA and dehydration which has resolved. Her hyponatremia has resolved as well. Continue to hold BP meds and keep NPO until patient is more awake, alert and passes swallow eval. Palliative care consult appreciated. Patient has advance directive and this was discussed with the family. Patient is full code as of now. Prognosis is poor. Upon discharge patient will follow up with Dr Carter. Dr Bill Ruiz
--- NOTE | 2017-08-13 21:45 | PN ---
DATE: 08/13/2017 SUBJECTIVE: The patient is in bed in no acute distress, nontoxic. PHYSICAL EXAMINATION: VITAL SIGNS: On exam, temperature is 98, blood pressure is 111/60, respiratory rate of 12. HEENT: Unremarkable. NECK: Supple. LUNGS: Decreased breath sounds. HEART: Normal S1, S2. ABDOMEN: Soft, nontender. LABORATORY DATA: Reveals the patient's white count of 19,900, hemoglobin of 9, platelets of 471. Chemistries reveals BUN of 32, creatinine of 1.1, and procalcitonin of 0.69. Urinalysis is noted, and influenza is negative. ASSESSMENT AND PLAN: This is an 87-year-old female admitted with severe sepsis, Escherichia coli in the urine, Parkinson's disease, transient ischemic attack, hypertension, dyslipidemia. The patient had positive blood cultures for Providencia. The patient has leukocytosis, sepsis and bacteremia, decubitus ulcers, and persistent leukocytosis on meropenem. The patient may be having intermittent aspirations. Overall, prognosis quite poor for this patient. She did have a temperature of 101.5 yesterday and blood cultures from day before are negative, and stool for Clostridium difficile toxin and antigen are negative. Should consider hospice setting in this patient, who has poor quality of life. Davy Casas MD
[2017-08-14 07:36] LABS: BASO # 0.02 K/mm3 (0.0-2.0); BASO % 0.1 % (0.0-3.0); EOS # 0.1 (0.0-0.7); EOS % 0.5 % (1.5-5.0); GRAN # 13.4 (1.4-6.5); GRAN % 81.4 % (50.0-68.0); HEMOGLOBIN 8.8 g/dL (12.0-16.0); LYMPH # 2.4 (1.2-3.4); LYMPH % 14.8 % (22.0-35.0); MEAN CELL VOLUME 85.8 fl (80.0-105.0); MEAN CORPUSCULAR HEMOGLOBIN 27.8 pg (25.0-35.0); MEAN CORPUSCULAR HGB CONC 32.4 g/dl (31.0-37.0); MEAN PLATELET VOLUME 9.3 fl (7.0-11.0); MONO # 0.5 (0.1-0.6); MONO % 3.2 % (1.0-6.0); RBC 3.17 10^6/uL (3.5-6.1); RED CELL DISTRIBUTION WIDTH 14.6 % (11.5-14.5); WHITE BLOOD COUNT 16.5 10^3/ul (4.5-11.0)
[2017-08-14 08:34] LABS: ALB/GLOB RATIO 0.6 (1.1-1.8); ALBUMIN 2.1 g/dL (3.0-4.8); ALT/SGPT 59 U/L (7-56); AST/SGOT 99 U/L (14-36); BLOOD UREA NITROGEN 31 mg/dL (7-21); CALCIUM 7.8 mg/dL (8.4-10.5); GFR AFRICAN-AMERICAN > 60; GFR NON-AFRICAN AMERICAN 60
--- NOTE | 2017-08-14 08:34 | PN ---
DATE: 08/11/2017 SUBJECTIVE: The patient is seen lying in bed. She is lethargic, minimally responsive, not really following commands. PHYSICAL EXAMINATION: GENERAL: Obese elderly lady, lying in bed. VITAL SIGNS: Blood pressure 120/68, heart rate 84, respiratory rate 20, temperature 99.2. HEENT: Normocephalic, atraumatic, positive pallor. NECK: Supple, no JVD. LUNGS: Bilateral equal air entry, no rales. CARDIAC: S1 and S2, regular rate and rhythm, no murmur, no rub. ABDOMEN: Soft, nondistended, nontender, bowel sounds present. EXTREMITIES: Trace lower extremity edema. INTAKE AND OUTPUT: 1500/600. LABORATORY DATA: WBC 27, hemoglobin 9.9, hematocrit 32, platelets 376. Sodium 142, potassium 4.1, chloride 109, CO2 of 24, BUN 21, creatinine 0.7, glucose 228, calcium 7.8, albumin 2.1, corrected calcium is 9.2, phosphorus 3.8, magnesium 1.8, AST 79, ALT 45. CURRENT MEDICATIONS: Colace, Cozaar 50, Ecotrin, heparin, Lipitor, meropenem 1 g q. 12, MiraLax, morphine, Namenda, Protonix, carbidopa, multivitamins, Tylenol, zinc sulfate. ASSESSMENT AND PLAN: 1. Severe sepsis. 2. Hypernatremia secondary to dehydration, resolving. 3. Sacral decubitus with osteomyelitis. 4. Parkinson's disease. 5. Dementia. 6. Hypertension. PLAN: 1. The patient is off IV fluids now, sodium is normal. 2. Continue antibiotics as per ID recommendations. 3. Avoid nephrotoxins. 4. Continue current antihypertensives. Sharonda Del Rio MD
[2017-08-14] MEDS: Carbidopa/Levodopa 50/200 CR PO SCH (09:17)
[2017-08-14] MEDS: Multivitamin With Minerals Tab PO SCH (09:17)
--- NOTE | 2017-08-14 09:51 | CP.PCM.PN ---
Subjective - Date & Time of Evaluation Date of Evaluation: 08/14/17 Time of Evaluation: 09:48 - Subjective Subjective: General surgery progress note for Dr. Guzman Patient seen and examined at bedside. No acute complaints, had a soft bowel movement this am. Objective - Vital Signs/Intake and Output Vital Signs (last 24 hours): Temp Pulse Resp BP Pulse Ox 98.1 F 78 20 117/57 L 98 08/13/17 22:10 08/14/17 03:13 08/13/17 22:10 08/13/17 22:10 08/13/17 22:10 Intake and Output: 08/14/17 08/14/17 06:59 18:59 Intake Total 0 Output Total 900 Balance -900 - Medications Medications: Current Medications Acetaminophen (Tylenol 650mg/20.3ml Solution Ud) 650 mg NG Q6H PRN PRN Reason: Fever >100.4 F Last Admin: 08/12/17 01:38 Dose: 650 mg Albuterol Sulfate (Albuterol 0.083% Inhal Kerri (2.5 Mg/3 Ml) Ud) 2.5 mg IH Q2H PRN PRN Reason: Shortness of Breath Last Admin: 08/12/17 14:05 Dose: 2.5 mg Aspirin (Ecotrin) 81 mg PO DAILY [facility] Last Admin: 08/14/17 09:18 Dose: Not Given Atorvastatin Calcium (Lipitor) 10 mg PO DIN [facility] Last Admin: 08/13/17 18:14 Dose: 10 mg Carbidopa/Levodopa (Sinemet Cr) 1 tab PO DAILY [facility] Last Admin: 08/14/17 09:17 Dose: Not Given Collagenase (Santyl) 0 gm TOP DAILY [facility] Last Admin: 08/13/17 11:29 Dose: Not Given Heparin Sodium (Porcine) (Heparin) 5,000 units SC Q12 ELLE PRN Reason: Protocol Last Admin: 08/13/17 21:17 Dose: 5,000 units Meropenem/Sodium Chloride (Meropenem 1g/Ns 100ml Ivpb) 1 gm in 100 mls @ 100 mls/hr IVPB Q12 ELLE PRN Reason: Protocol Last Admin: 08/13/17 21:18 Dose: 100 mls/hr Potassium Chloride/Dextrose/Sod Cl (Potassium Chl 40 Meq In D5-1/2ns) 1,000 mls @ 100 mls/hr IV .Q10H [facility] Losartan Potassium (Cozaar) 50 mg PO DAILY [facility] Memantine (Namenda) 5 mg PO BID [facility] Last Admin: 08/14/17 09:18 Dose: Not Given Multivitamins/Minerals (Therapeutic-M Tab) 1 tab PO 0800 [facility] Last Admin: 08/14/17 09:17 Dose: Not Given Pantoprazole Sodium (Protonix Inj) 40 mg IVP DAILY [facility] Last Admin: 08/14/17 09:18 Dose: Not Given Zinc Sulfate (Zinc Sulfate 220 Mg Cap) 220 mg PO DAILY [facility] Last Admin: 08/14/17 09:18 Dose: Not Given - Labs Labs: 08/14/17 07:00 08/14/17 07:00 PT 16.3 SECONDS (9.4-12.5) H 08/07/17 09:30 INR 1.41 (0.93-1.08) H 08/07/17 09:30 APTT 42.8 Seconds (25.1-36.5) H 08/07/17 09:30 - Constitutional Appears: Well - Head Exam Head Exam: ATRAUMATIC, NORMAL INSPECTION, NORMOCEPHALIC - Eye Exam Eye Exam: EOMI, Normal appearance, PERRL Pupil Exam: NORMAL ACCOMODATION, PERRL - ENT Exam ENT Exam: Mucous Membranes Moist, Normal Exam - Neck Exam Neck Exam: Full ROM, Normal Inspection. absent: Lymphadenopathy - Respiratory Exam Respiratory Exam: Clear to Ausculation Bilateral, NORMAL BREATHING PATTERN - Cardiovascular Exam Cardiovascular Exam: REGULAR RHYTHM, +S1, +S2. absent: Murmur - GI/Abdominal Exam GI & Abdominal Exam: Soft, Normal Bowel Sounds. absent: Tenderness - Rectal Exam Rectal Exam: NORMAL INSPECTION - Extremities Exam Extremities Exam: Full ROM, Normal Capillary Refill, Normal Inspection. absent : Joint Swelling, Pedal Edema - Back Exam Back Exam: NORMAL INSPECTION - Neurological Exam Neurological Exam: Alert, Awake, CN II-XII Intact, Normal Gait, Oriented x3 - Psychiatric Exam Psychiatric exam: Normal Affect, Normal Mood - Skin Skin Exam: Dry, Intact, Normal Color, Warm Assessment and Plan - Assessment and Plan (Free Text) Assessment: Assessment and Plan 87F POD#3 s/p debridement of stage 4 sacral decubitus ulcer and left gluteal/ perirectal abscess with wound vac placement changed wound vac at bedside revealing persistent necrotic tissue Plan: -Continue wound vac to continuous suction -OR on 08/15 for further debridement of sacral decubitus ulcer. -trend daily CBC -continue antibiotics per cultures sensitivities and ID recs -F/U intra-operative wound culture results: gran negative rods so far -NPO after midnight tonight
[2017-08-14] MEDS: Potassium Chl 40 mEq in D5-1/2 1,000 ML IV SCH ×2 (11:19→22:36)
[2017-08-14] MEDS: Collagenase 250 Units/gm Ointment(30 gm) TOP SCH (11:22)
--- NOTE | 2017-08-14 11:52 | CP.PCM.CON ---
<Bhupinder Thomson - Last Filed: 08/14/17 12:01> History of Present Illness - History of Present Illness History of Present Illness: PGY4 Initial GI Consult Christina Caldwell is a 87F w/ hx of Parkinson's disease, history of TIA, HTN, dyslipidemia, decubitus ulcer, dementia, history of eyelid surgery was brought in by family to [facility] because of decreased appetite, confusion, and weakness. The patient has baseline confusion as per family but she is more confused and lethargic this time. They did not note any fevers, no convulsions, no vomiting, no diarrhea, no loss of consciousness. Full review of systems is unobtainable because of the patient's mental status. GI was consulted due to profuse diarrhea. The pt was initially diagnosed with having a fecal impaction based on CT abd on 08/11/17. She was placed on laxatives and stool softners. She then proceeded to have a large amout of stool oupt over the weekend. At this time, the primary medical team and nursing report large volume of liquid stool with contamination of sacral decubitus ulcers. Pt opens her eyes and denies megan pain , but cannot make any meaningful conversation. The patient is noted to have a sacral decubitus ulcer and was given antibiotics (cefuroxime) for this for about a week. The family notes that foul smell emanates from the ulcer. She has been started on merem and vanco. PMHx: Parkinson disease, HTA, HTN, HLD, chronic back pain. Social History: Non smoker, no alcohol or drug use. Lives with daughter. Family History: Non contributory. Endo hx: unknown ROS: could not be conducted Past Patient History - Infectious Disease Hx of Infectious Diseases: None - Past Social History Smoking Status: Never Smoked - CARDIAC Hx Hypertension: Yes - PULMONARY Hx Respiratory Disorders: No - NEUROLOGICAL Hx Neurological Disorder: Yes Hx Parkinson's Disease: Yes - HEENT Hx HEENT Problems: Yes (eyeglasses) Other/Comment: eye sx fatty tissue removed from both eyelids - RENAL Hx Chronic Kidney Disease: No - ENDOCRINE/METABOLIC Hx Endocrine Disorders: No - HEMATOLOGICAL/ONCOLOGICAL Hx Blood Transfusions: No Hx Blood Transfusion Reaction: No - INTEGUMENTARY Hx Dermatological Problems: No - MUSCULOSKELETAL/RHEUMATOLOGICAL Hx Falls: No - GASTROINTESTINAL Hx Gastrointestinal Disorders: No - GENITOURINARY/GYNECOLOGICAL Hx Genitourinary Disorders: No - PSYCHIATRIC Hx Psychophysiologic Disorder: No Hx Substance Use: No - SURGICAL HISTORY Hx Surgeries: No - ANESTHESIA Hx Anesthesia Reactions: No Hx Malignant Hyperthermia: No Meds Allergies/Adverse Reactions: Allergies Allergy/AdvReac Type Severity Reaction Status Date / Time No Known Allergies Allergy Verified 05/21/17 11:09 - Medications Medications: Current Medications Acetaminophen (Tylenol 650mg/20.3ml Solution Ud) 650 mg NG Q6H PRN PRN Reason: Fever >100.4 F Last Admin: 08/12/17 01:38 Dose: 650 mg Albuterol Sulfate (Albuterol 0.083% Inhal Kerri (2.5 Mg/3 Ml) Ud) 2.5 mg IH Q2H PRN PRN Reason: Shortness of Breath Last Admin: 08/12/17 14:05 Dose: 2.5 mg Aspirin (Ecotrin) 81 mg PO DAILY [facility] Last Admin: 08/14/17 09:18 Dose: Not Given Atorvastatin Calcium (Lipitor) 10 mg PO DIN [facility] Last Admin: 08/13/17 18:14 Dose: 10 mg Carbidopa/Levodopa (Sinemet Cr) 1 tab PO DAILY [facility] Last Admin: 08/14/17 09:17 Dose: Not Given Collagenase (Santyl) 0 gm TOP DAILY [facility] Last Admin: 08/14/17 11:22 Dose: Not Given Heparin Sodium (Porcine) (Heparin) 5,000 units SC Q12 ELLE PRN Reason: Protocol Last Admin: 08/14/17 11:18 Dose: 5,000 units Meropenem/Sodium Chloride (Meropenem 1g/Ns 100ml Ivpb) 1 gm in 100 mls @ 100 mls/hr IVPB Q12 ELLE PRN Reason: Protocol Last Admin: 08/13/17 21:18 Dose: 100 mls/hr Potassium Chloride/Dextrose/Sod Cl (Potassium Chl 40 Meq In D5-1/2ns) 1,000 mls @ 100 mls/hr IV .Q10H [facility] Last Admin: 08/14/17 11:19 Dose: 100 mls/hr Losartan Potassium (Cozaar) 50 mg PO DAILY [facility] Memantine (Namenda) 5 mg PO BID [facility] Last Admin: 08/14/17 09:18 Dose: Not Given Multivitamins/Minerals (Therapeutic-M Tab) 1 tab PO 0800 [facility] Last Admin: 08/14/17 09:17 Dose: Not Given Pantoprazole Sodium (Protonix Inj) 40 mg IVP DAILY [facility] Last Admin: 08/14/17 09:18 Dose: Not Given Zinc Sulfate (Zinc Sulfate 220 Mg Cap) 220 mg PO DAILY [facility] Last Admin: 08/14/17 09:18 Dose: Not Given Physical Exam - Constitutional Appears: No Acute Distress, Confused, Chronically Ill - Head Exam Head Exam: ATRAUMATIC, NORMOCEPHALIC - Eye Exam Eye Exam: Normal appearance - Respiratory Exam Respiratory Exam: Clear to Auscultation Bilateral, NORMAL BREATHING PATTERN. absent: Rales, Rhonchi, Wheezes, Respiratory Distress - Cardiovascular Exam Cardiovascular Exam: REGULAR RHYTHM, +S1, +S2 - GI/Abdominal Exam GI & Abdominal Exam: Normal Bowel Sounds, Soft. absent: Distended, Firm, Organomegaly, Rebound, Rigid - Rectal Exam Additional comments: large amount of liquid stool noted - Extremities Exam Extremities exam: Negative for: joint swelling, pedal edema - Neurological Exam Neurological exam: Altered - Psychiatric Exam Psychiatric exam: Normal Affect, Normal Mood - Skin Skin Exam: Dry, Intact, Normal Color, Warm Results - Vital Signs Recent Vital Signs: Last Vital Signs Temp 98.1 F 08/13/17 22:10 Pulse 78 08/14/17 03:13 Resp 20 08/13/17 22:10 BP 117/57 L 08/13/17 22:10 Pulse Ox 98 08/13/17 22:10 - Labs Result Diagrams: 08/14/17 07:00 08/14/17 07:00 Labs: Laboratory Results - last 24 hr 08/14/17 08/14/17 07:00 07:00 WBC 16.5 H RBC 3.17 L Hgb 8.8 L Hct 27.2 L MCV 85.8 MCH 27.8 MCHC 32.4 RDW 14.6 H Plt Count 514 H MPV 9.3 Gran % 81.4 H Lymph % (Auto) 14.8 L [place] % (Auto) 3.2 Eos % (Auto) 0.5 L Baso % (Auto) 0.1 Gran # 13.40 H Lymph # (Auto) 2.4 [place] # (Auto) 0.5 Eos # (Auto) 0.1 Baso # (Auto) 0.02 Sodium 138 Potassium 3.5 L Chloride 107 Carbon Dioxide 24 Anion Gap 11 BUN 31 H Creatinine 0.9 Est GFR ( Amer) > 60 Est GFR (Non-Af Amer) 60 Random Glucose 120 H Calcium 7.8 L Total Bilirubin 0.3 AST 99 H D ALT 59 H Alkaline Phosphatase 119 Total Protein 5.7 L Albumin 2.1 L Globulin 3.6 Albumin/Globulin Ratio 0.6 L Assessment & Plan - Assessment and Plan (Free Text) Assessment: Christina Caldwell is a 87F w/ hx of Parkinson's disease, history of TIA, HTN, dyslipidemia, decubitus ulcer, dementia, history of eyelid surgery was brought in by family to [facility] [place] because of decreased appetite, confusion, and weakness. Consulted for diarrhea Acute diarrhea, etiology: unknown; DDx: infectous (c.diff neg), abx induced, overflow, laxative induced Sacral Decubitus TME Dysphagia due to AMS Plan: -recommend flexiseal -stool culture, c. diff 08/12 neg -if neg for infectous w/u, can consider imodium -if rectal oupt decreases in the next 24hrs, restart feeds via NG -NPO due to AMS -abx as per ID -if pt continues to have sig liquid stool consider abd xray to eval for stool burden -poor pronosis D/W Dr. Buckner <Kemar Buckner - Last Filed: 08/14/17 12:39> Meds - Medications Medications: Current Medications Acetaminophen (Tylenol 650mg/20.3ml Solution Ud) 650 mg NG Q6H PRN PRN Reason: Fever >100.4 F Last Admin: 08/12/17 01:38 Dose: 650 mg Albuterol Sulfate (Albuterol 0.083% Inhal Kerri (2.5 Mg/3 Ml) Ud) 2.5 mg IH Q2H PRN PRN Reason: Shortness of Breath Last Admin: 08/12/17 14:05 Dose: 2.5 mg Aspirin (Ecotrin) 81 mg PO DAILY [facility] Last Admin: 08/14/17 09:18 Dose: Not Given Atorvastatin Calcium (Lipitor) 10 mg PO DIN [facility] Last Admin: 08/13/17 18:14 Dose: 10 mg Carbidopa/Levodopa (Sinemet Cr) 1 tab PO DAILY [facility] Last Admin: 08/14/17 09:17 Dose: Not Given Collagenase (Santyl) 0 gm TOP DAILY [facility] Last Admin: 08/14/17 11:22 Dose: Not Given Heparin Sodium (Porcine) (Heparin) 5,000 units SC Q12 ELLE PRN Reason: Protocol Last Admin: 08/14/17 11:18 Dose: 5,000 units Meropenem/Sodium Chloride (Meropenem 1g/Ns 100ml Ivpb) 1 gm in 100 mls @ 100 mls/hr IVPB Q12 ELLE PRN Reason: Protocol Last Admin: 08/13/17 21:18 Dose: 100 mls/hr Potassium Chloride/Dextrose/Sod Cl (Potassium Chl 40 Meq In D5-1/2ns) 1,000 mls @ 100 mls/hr IV .Q10H [facility] Last Admin: 08/14/17 11:19 Dose: 100 mls/hr Losartan Potassium (Cozaar) 50 mg PO DAILY [facility] Memantine (Namenda) 5 mg PO BID [facility] Last Admin: 08/14/17 09:18 Dose: Not Given Multivitamins/Minerals (Therapeutic-M Tab) 1 tab PO 0800 [facility] Last Admin: 08/14/17 09:17 Dose: Not Given Pantoprazole Sodium (Protonix Inj) 40 mg IVP DAILY [facility] Last Admin: 08/14/17 09:18 Dose: Not Given Zinc Sulfate (Zinc Sulfate 220 Mg Cap) 220 mg PO DAILY [facility] Last Admin: 08/14/17 09:18 Dose: Not Given Results - Vital Signs Recent Vital Signs: Last Vital Signs Temp 98.1 F 08/13/17 22:10 Pulse 78 08/14/17 03:13 Resp 20 08/13/17 22:10 BP 117/57 L 08/13/17 22:10 Pulse Ox 98 08/13/17 22:10 - Labs Result Diagrams: 08/14/17 07:00 08/14/17 07:00 Labs: Laboratory Results - last 24 hr 08/14/17 08/14/17 07:00 07:00 WBC 16.5 H RBC 3.17 L Hgb 8.8 L Hct 27.2 L MCV 85.8 MCH 27.8 MCHC 32.4 RDW 14.6 H Plt Count 514 H MPV 9.3 Gran % 81.4 H Lymph % (Auto) 14.8 L [place] % (Auto) 3.2 Eos % (Auto) 0.5 L Baso % (Auto) 0.1 Gran # 13.40 H Lymph # (Auto) 2.4 [place] # (Auto) 0.5 Eos # (Auto) 0.1 Baso # (Auto) 0.02 Sodium 138 Potassium 3.5 L Chloride 107 Carbon Dioxide 24 Anion Gap 11 BUN 31 H Creatinine 0.9 Est GFR ( Amer) > 60 Est GFR (Non-Af Amer) 60 Random Glucose 120 H Calcium 7.8 L Total Bilirubin 0.3 AST 99 H D ALT 59 H Alkaline Phosphatase 119 Total Protein 5.7 L Albumin 2.1 L Globulin 3.6 Albumin/Globulin Ratio 0.6 L Attending/Attestation - Attestation I have personally seen and examined this patient.: Yes I have fully participated in the care of the patient.: Yes I have reviewed all pertinent clinical information: Yes Notes (Text): 08/14/17 12:29 I have seen and examined patient with GI fellow. Agree with above documentation with the following additions. In brief, this is an 87 year old female with history of parkinson's disease, dementia, HTN, TIA who was initially brought to hospital by family members due to progressive lethargy, failure to thrive, and poor PO intake. She is not able to participate in meaningful discussion, additional information was obtained via discussion with nursing staff, chart review, and conversation with family members. She was noted to have a significant sacral decubitus ulcer which is currently being treated with wound vac and antibiotic therapy. GI called for evaluation of diarrhea. Initially she was constipated and had fecal impaction, was given multiple laxative agents by medical team and now has developed multiple loose bowel movements. There is no reported abdominal pain, nausea, vomiting, or rectal bleeding. Unclear regarding prior endoscopic history. Review of vitals from today are normal. Family history: reviewed, no documented GI malignancies Parkinson's disease, dementia HTN TIA Sacral decubitus ulcer Fecal impaction, s/p medical therapy now with loose frequent bowel movements, overflow incontinence CT imaging from few days prior reviewed by me showing large distal fecal impaction with colon dilation - Suggest insertion of rectal tube given frequent loose bowel movements and ongoing therapy for sacral decubitus ulcer - Continue with antibiotic therapy - Obtain stool studies - Monitor stool output, can likely resume tube feeding - Will continue to monitor patient clinical course
--- NOTE | 2017-08-14 13:19 | PN ---
DATE: SUBJECTIVE: The patient is currently seen, sleeping in bed, non-communicative. She remains on IV antibiotic therapy for her urinary tract infection, sacral decubitus and possible osteomyelitis. MEDICATIONS: Medication list reviewed. The patient is on albuterol, aspirin, heparin, Lipitor, meropenem, Namenda, IV fluids with potassium chloride, Protonix, Santyl, Sinemet, Therapeutic-M tablets, Tylenol p.r.n. and zinc. OBJECTIVE INTAKE/OUTPUT: Intake not charted, output 1200. The patient has a Farrar catheter. VITAL SIGNS: Blood pressure is 117/57, temperature 98.1, respiratory rate 20 with a pulse of 90. Oxygen saturation is 98%. HEENT: Exam shows her to be normocephalic, atraumatic. Conjunctivae are pale. Sclerae are nonicteric. NECK: No neck vein distention. CHEST: Clear to auscultation and percussion. No rales. No rhonchi or wheezing. CARDIOVASCULAR: Shows a regular rate and rhythm without audible murmurs, rubs, or gallops. ABDOMEN: Soft. Bowel sounds normal. No rebound, no guarding. No masses. EXTREMITIES: Show no lower extremity pitting edema with the patient lying supine in bed. No cyanosis or clubbing. BACK: Positive dressing over a large area covering a stage IV infected sacral decubitus. NEUROLOGICAL: The patient is unresponsive to verbal communication. LABORATORY DATA AND IMAGING DATA: Labs today, CBC: White blood cell count down to 16.5. Hemoglobin low at 8.8 with hydration. Platelet count is 514,000. Chemistry shows sodium of 138, potassium of 3.5, chloride of 107 with a CO2 of 24. BUN is trending slightly higher at 31. BUN on admission was 42, which fell to 19 with hydration and is now back to 31. Creatinine was 1.3 at admission, it dropped as low as 0.7, now it is up to 0.9. Glucose is 120. Calcium 7.8 with an albumin of 2.1, corrects to normal. Phosphorus and magnesium are normal. Mild elevation of her liver enzymes. Microbiology: Urine cultures are positive for E-coli. Sacral decubitus wound cultures are positive for E-coli and enterococcus. Blood cultures are negative at 48 hours. C. diff is negative. ASSESSMENT 1. Status post hypernatremia secondary to dehydration, sodium had dropped from a high of 158 down to 138. 2. Acute renal failure, for the most part resolved. The patient is once again becoming prerenal; hence, she was started on IV fluid hydration. It is unclear whether the patient is taking in adequate amounts of hydration. 3. Borderline to mild hypokalemia. Cautiously supplement potassium and intravenous fluids. 4. History of Escherichia coli urinary tract infection. 5. History of Escherichia coli Enterococcus sacral decubitus infected ulcer with possible osteomyelitis. 6. History of Parkinson disease. 7. History of progressive dementia. 8. History of hyperlipidemia. 9. History of anemia, which will likely worsen with IV fluid hydration. PLAN 1. Continue to monitor labs closely. 2. Continue to monitor accurate Is and Os now that the patient is back on IV fluid hydration. 3. Complete a course of antibiotic therapy for treatment of her urinary tract infection, infected sacral decubitus and possible osteomyelitis. 4. Expect her BUN and creatinine to return back to baseline range with IV fluid hydration. Santos Friedman MD [id number]
[2017-08-14] MEDS: Meropenem 1g/NS 100mL IVPB 1 GM/100 ML PIGGYBACK IVPB SCH ×2 (14:16→22:34)
--- NOTE | 2017-08-14 14:50 | CP.PCM.PN ---
<Andrey Leiva - Last Filed: 08/14/17 14:47> Subjective - Date & Time of Evaluation Date of Evaluation: 08/14/17 Time of Evaluation: 07:20 - Subjective Subjective: Medicine progress note for Dr. Zuniga Hospitalist Service Patient seen and examined. Patient is lethargic and somnolent. Unable to obtain ROS. Per nursing staff, patient had 5 bouts of diarrhea overnight. Objective - Vital Signs/Intake and Output Vital Signs (last 24 hours): Temp Pulse Resp BP Pulse Ox 99 F 79 20 120/50 L 98 08/14/17 12:00 08/14/17 12:00 08/14/17 12:00 08/14/17 12:00 08/13/17 22:10 Intake and Output: 08/14/17 08/14/17 06:59 18:59 Intake Total 0 Output Total 900 Balance -900 - Medications Medications: Current Medications Acetaminophen (Tylenol 650mg/20.3ml Solution Ud) 650 mg NG Q6H PRN PRN Reason: Fever >100.4 F Last Admin: 08/12/17 01:38 Dose: 650 mg Albuterol Sulfate (Albuterol 0.083% Inhal Kerri (2.5 Mg/3 Ml) Ud) 2.5 mg IH Q2H PRN PRN Reason: Shortness of Breath Last Admin: 08/12/17 14:05 Dose: 2.5 mg Aspirin (Ecotrin) 81 mg PO DAILY [facility] Last Admin: 08/14/17 09:18 Dose: Not Given Atorvastatin Calcium (Lipitor) 10 mg PO DIN [facility] Last Admin: 08/13/17 18:14 Dose: 10 mg Carbidopa/Levodopa (Sinemet Cr) 1 tab PO DAILY [facility] Last Admin: 08/14/17 09:17 Dose: Not Given Collagenase (Santyl) 0 gm TOP DAILY [facility] Last Admin: 08/14/17 11:22 Dose: Not Given Heparin Sodium (Porcine) (Heparin) 5,000 units SC Q12 [facility] PRN Reason: Protocol Last Admin: 08/14/17 11:18 Dose: 5,000 units Meropenem/Sodium Chloride (Meropenem 1g/Ns 100ml Ivpb) 1 gm in 100 mls @ 100 mls/hr IVPB Q12 [facility] PRN Reason: Protocol Last Admin: 08/14/17 14:16 Dose: 100 mls/hr Potassium Chloride/Dextrose/Sod Cl (Potassium Chl 40 Meq In D5-1/2ns) 1,000 mls @ 100 mls/hr IV .Q10H [facility] Last Admin: 08/14/17 11:19 Dose: 100 mls/hr Losartan Potassium (Cozaar) 50 mg PO DAILY [facility] Memantine (Namenda) 5 mg PO BID [facility] Last Admin: 08/14/17 09:18 Dose: Not Given Multivitamins/Minerals (Therapeutic-M Tab) 1 tab PO 0800 [facility] Last Admin: 08/14/17 09:17 Dose: Not Given Pantoprazole Sodium (Protonix Inj) 40 mg IVP DAILY [facility] Last Admin: 08/14/17 09:18 Dose: Not Given Zinc Sulfate (Zinc Sulfate 220 Mg Cap) 220 mg PO DAILY [facility] Last Admin: 08/14/17 09:18 Dose: Not Given - Labs Labs: 08/14/17 07:00 08/14/17 07:00 PT 16.3 SECONDS (9.4-12.5) H 08/07/17 09:30 INR 1.41 (0.93-1.08) H 08/07/17 09:30 APTT 42.8 Seconds (25.1-36.5) H 08/07/17 09:30 - Constitutional Appears: No Acute Distress - Head Exam Head Exam: ATRAUMATIC, NORMOCEPHALIC - Eye Exam Eye Exam: Normal appearance - ENT Exam ENT Exam: Mucous Membranes Moist - Respiratory Exam Respiratory Exam: Clear to Ausculation Bilateral, NORMAL BREATHING PATTERN. absent: Rales, Rhonchi, Wheezes - Cardiovascular Exam Cardiovascular Exam: REGULAR RHYTHM, +S1, +S2 - GI/Abdominal Exam GI & Abdominal Exam: Soft. absent: Distended, Firm, Tenderness - Exam Additional comments: Farrar in place with sincere colored urine - Extremities Exam Extremities Exam: absent: Pedal Edema - Back Exam Additional comments: Wound vac over stage 4 decubitus sacral ulcer actively draining - Neurological Exam Neurological Exam: Altered - Skin Skin Exam: Normal Color, Warm Assessment and Plan - Assessment and Plan (Free Text) Assessment: This is an 87yo female with past medical history of Parkinson's, HTN, HLD, TIA admitted for sepsis secondary to sacral decubitus ulcer as well as hypernatremia secondary to poor PO intake. Debridement performed in the OR on . Per report, Stage 4 sacral decubitus ulcer, osteomyelitis of the sacrum, perirectal and gluteal abscess. Patient lethargic more than before today, and repeat Head CT was ordered but did not show any changes. Dobhoff tube placed and tube feeds started. Per family, they request all possible intervention for now. Plan: 1. Sepsis - secondary to sacral decubitus ulcer stage 4 per surgery with evidence of osteomyelitis of the sacrum, perirectal and gluteal abscess - Lactate: 3.2 - ID consulted- Merrem on board - As per surgery patient will undergo tentative debridement tomorrow - Failed swallow eval. - Dobhoff tube placed for medications and tube feeds (tube feeds held due to diarrhea) - urine cultures grew E. coli - decubitus culture grew E.coli and E. faecalis - Blood cultures with gram negative rods - Continue with multivitamin, Zinc - Tylenol prn fever - Patient experienced labored breathing over the weekend, duonebs given and CXR ordered is negative - Patient is for further debridement tomorrow in the OR. 2. LEONARDA and Hypernatremia - Secondary to poor PO intake, - Continue IV fluids with D5 half NS with potassium - Nephrology consulted - urine osmolality 851 - continue to monitor 3. HTN - BP normal - Will hold BP meds for now considering trend in vitals 4. HLD - Continue ASA and Lipitor 5. Parkinson's Disease - Sinemet, Namenda - PT eval 6. Hypokalemia - continue to monitor and replete, check mag 7. Hypophosphatemia - repleted - continue to monitor 8. Abdominal Distention - Possibly due to constipation - CT chest/abdomen/pelvis with IV & PO contrast showed proximal impaction - Miralax and colace discontinued due to diarrhea - tube feeds held for now - GI consulted, recommendations appreciated GI ppx: Protonix DVT ppx: Heparin, SCDs Disposition: Stage 4 sacral decubitus ulcer, osteomyelitis of the sacrum, perirectal and gluteal abscess was found. Per family, they wish for full code at this time. They will consider PEG tube at a later date. Patient with multiple bouts of diarrhea. Tube feeds held. NPO after midnight for further debridement in OR tomorrow. Seen and discussed with Dr. Zuniga <Aldair Zuniga - Last Filed: 08/14/17 17:17> Objective - Vital Signs/Intake and Output Vital Signs (last 24 hours): Temp Pulse Resp BP Pulse Ox 99 F 79 20 120/50 L 98 08/14/17 12:00 08/14/17 12:00 08/14/17 12:00 08/14/17 12:00 08/13/17 22:10 Intake and Output: 08/14/17 08/14/17 06:59 18:59 Intake Total 0 Output Total 900 Balance -900 - Medications Medications: Current Medications Acetaminophen (Tylenol 650mg/20.3ml Solution Ud) 650 mg NG Q6H PRN PRN Reason: Fever >100.4 F Last Admin: 08/12/17 01:38 Dose: 650 mg Albuterol Sulfate (Albuterol 0.083% Inhal Kerri (2.5 Mg/3 Ml) Ud) 2.5 mg IH Q2H PRN PRN Reason: Shortness of Breath Last Admin: 08/12/17 14:05 Dose: 2.5 mg Aspirin (Ecotrin) 81 mg PO DAILY [facility] Last Admin: 08/14/17 09:18 Dose: Not Given Atorvastatin Calcium (Lipitor) 10 mg PO DIN [facility] Last Admin: 08/13/17 18:14 Dose: 10 mg Carbidopa/Levodopa (Sinemet Cr) 1 tab PO DAILY [facility] Last Admin: 08/14/17 09:17 Dose: Not Given Collagenase (Santyl) 0 gm TOP DAILY [facility] Last Admin: 08/14/17 11:22 Dose: Not Given Heparin Sodium (Porcine) (Heparin) 5,000 units SC Q12 [facility] PRN Reason: Protocol Last Admin: 08/14/17 11:18 Dose: 5,000 units Meropenem/Sodium Chloride (Meropenem 1g/Ns 100ml Ivpb) 1 gm in 100 mls @ 100 mls/hr IVPB Q12 [facility] PRN Reason: Protocol Last Admin: 08/14/17 14:16 Dose: 100 mls/hr Potassium Chloride/Dextrose/Sod Cl (Potassium Chl 40 Meq In D5-1/2ns) 1,000 mls @ 100 mls/hr IV .Q10H [facility] Last Admin: 08/14/17 11:19 Dose: 100 mls/hr Losartan Potassium (Cozaar) 50 mg PO DAILY [facility] Memantine (Namenda) 5 mg PO BID [facility] Last Admin: 08/14/17 09:18 Dose: Not Given Multivitamins/Minerals (Therapeutic-M Tab) 1 tab PO 0800 [facility] Last Admin: 08/14/17 09:17 Dose: Not Given Pantoprazole Sodium (Protonix Inj) 40 mg IVP DAILY [facility] Last Admin: 08/14/17 09:18 Dose: Not Given Zinc Sulfate (Zinc Sulfate 220 Mg Cap) 220 mg PO DAILY [facility] Last Admin: 08/14/17 09:18 Dose: Not Given - Labs Labs: 08/14/17 07:00 08/14/17 07:00 PT 16.3 SECONDS (9.4-12.5) H 08/07/17 09:30 INR 1.41 (0.93-1.08) H 08/07/17 09:30 APTT 42.8 Seconds (25.1-36.5) H 08/07/17 09:30 Attending/Attestation - Attestation I have personally seen and examined this patient.: Yes I have fully participated in the care of the patient.: Yes I have reviewed all pertinent clinical information, including history, physical exam and plan: Yes Notes (Text): 08/14/17 17:12 attending note; Patient seen and examined with resident. Patient is a 87 year old female with history of Parkinson's, advanced dementia, hypertension, hyperlipidemia, TIA is admitted for altered mental status secondary to sepsis. Patient has sacral decubitus ulcer .status post debridement and wound VAC placement. Continue meropenem. osteomyelitis of sacrum, preeti rectal and gluteal abscess. Wound vac in place. Plan for another debridement tomorrow. Wound culture reveals E.coli and E.Fecalis. Intraoperative cultures grew EColi. Urine culture revealed EColi. advanced dementia; not communicating well. Currently has NG tube. Possibility of PEG placement discussed with patient's family in detail. Palliative care consult appreciated. Patient has advance directive and this was discussed with the family. Patient is full code as of now. Prognosis is poor. Upon discharge patient will follow up with Dr. Carter. Prognosis is poor. Case discussed with director social for discharge planning.
--- NOTE | 2017-08-14 16:19 | CP.PCM.PN ---
Subjective - Date & Time of Evaluation Date of Evaluation: 08/14/17 Time of Evaluation: 11:25 - Subjective Subjective: Having diarrhea, no fevers. Objective - Vital Signs/Intake and Output Vital Signs (last 24 hours): Temp Pulse Resp BP Pulse Ox 98.1 F 78 20 117/57 L 98 08/13/17 22:10 08/14/17 03:13 08/13/17 22:10 08/13/17 22:10 08/13/17 22:10 Intake and Output: 08/14/17 08/14/17 06:59 18:59 Intake Total 0 Output Total 900 Balance -900 - Medications Medications: Current Medications Acetaminophen (Tylenol 650mg/20.3ml Solution Ud) 650 mg NG Q6H PRN PRN Reason: Fever >100.4 F Last Admin: 08/12/17 01:38 Dose: 650 mg Albuterol Sulfate (Albuterol 0.083% Inhal Kerri (2.5 Mg/3 Ml) Ud) 2.5 mg IH Q2H PRN PRN Reason: Shortness of Breath Last Admin: 08/12/17 14:05 Dose: 2.5 mg Aspirin (Ecotrin) 81 mg PO DAILY [facility] Last Admin: 08/14/17 09:18 Dose: Not Given Atorvastatin Calcium (Lipitor) 10 mg PO DIN [facility] Last Admin: 08/13/17 18:14 Dose: 10 mg Carbidopa/Levodopa (Sinemet Cr) 1 tab PO DAILY [facility] Last Admin: 08/14/17 09:17 Dose: Not Given Collagenase (Santyl) 0 gm TOP DAILY [facility] Last Admin: 08/13/17 11:29 Dose: Not Given Heparin Sodium (Porcine) (Heparin) 5,000 units SC Q12 [facility] PRN Reason: Protocol Last Admin: 08/13/17 21:17 Dose: 5,000 units Meropenem/Sodium Chloride (Meropenem 1g/Ns 100ml Ivpb) 1 gm in 100 mls @ 100 mls/hr IVPB Q12 [facility] PRN Reason: Protocol Last Admin: 08/13/17 21:18 Dose: 100 mls/hr Potassium Chloride/Dextrose/Sod Cl (Potassium Chl 40 Meq In D5-1/2ns) 1,000 mls @ 100 mls/hr IV .Q10H [facility] Losartan Potassium (Cozaar) 50 mg PO DAILY [facility] Memantine (Namenda) 5 mg PO BID [facility] Last Admin: 08/14/17 09:18 Dose: Not Given Multivitamins/Minerals (Therapeutic-M Tab) 1 tab PO 0800 [facility] Last Admin: 08/14/17 09:17 Dose: Not Given Pantoprazole Sodium (Protonix Inj) 40 mg IVP DAILY [facility] Last Admin: 08/14/17 09:18 Dose: Not Given Zinc Sulfate (Zinc Sulfate 220 Mg Cap) 220 mg PO DAILY [facility] Last Admin: 08/14/17 09:18 Dose: Not Given - Labs Labs: 08/14/17 07:00 08/14/17 07:00 PT 16.3 SECONDS (9.4-12.5) H 08/07/17 09:30 INR 1.41 (0.93-1.08) H 08/07/17 09:30 APTT 42.8 Seconds (25.1-36.5) H 08/07/17 09:30 - Constitutional Appears: Chronically Ill - Head Exam Head Exam: NORMAL INSPECTION - Respiratory Exam Respiratory Exam: Decreased Breath Sounds - Cardiovascular Exam Cardiovascular Exam: +S1, +S2 - GI/Abdominal Exam GI & Abdominal Exam: Soft. absent: Tenderness Assessment and Plan - Assessment and Plan (Free Text) Plan: Assessment Systemic Inflammatory response Syndrome, consider severe sepsis with acute renal failure due to severe infection of sacral decubitus ulcer, R/O osteomyelitis, growing E. coli R/O recurrent aspiration diarrhea, probably antibiotic associated Parkinson's disease history of TIA HTN dyslipidemia decubitus ulcer dementia history of eyelid surgery Plan continue Merrem day 8 stool for C. diff. negative overall prognosis is poor - should consider hospice
[2017-08-15] MEDS: Potassium Chl 40 mEq in D5-1/2 1,000 ML IV SCH ×3 (05:11→15:44)
[2017-08-15] MEDS ORDERED: Lidocaine 1% Inj (20ml) ONE (07:36)
[2017-08-15] MEDS ORDERED: Bupivacaine 0.5% Inj(30mL) ONE (07:36)
[2017-08-15] MEDS ORDERED: Etomidate 20 mg/10ml Inj IV ONE (07:39)
[2017-08-15] MEDS ORDERED: ePHEDrine 50 mg/ml Inj ONE (07:49)
[2017-08-15] MEDS ORDERED: Phenylephrine 10 mg/ml Inj ONE (07:49)
[2017-08-15] MEDS: Multivitamin With Minerals Tab PO SCH (08:00)
[2017-08-15] MEDS ORDERED: Liquid Adhesive TOP ONE (09:05)
[2017-08-15] MEDS ORDERED: HYDROmorphone 0.5 mg/0.5 ml ISec IVP PRN (09:21)
--- NOTE | 2017-08-15 09:22 | PCM.SURG1 ---
Surgeon's Initial Post Op Note - Surgeon's Notes Surgeon: Megan Ems Educator: Johanna PGY3 Type of Anesthesia: IV Sedation, Local Pre-Operative Diagnosis: Stage IV Sacral decubitus ulcer Operative Findings: necrotic tissue and R gluteal abscess Post-Operative Diagnosis: Stage IV decubitus and R gluteal abscess Operation Performed: debirdement of decubitus and I&D of abscess Specimen/Specimens Removed: none Estimated Blood Loss: EBL {In ML}: 20 Blood Products Given: N/A Drains Used: Wound Vac Post-Op Condition: Good Date of Surgery/Procedure: 08/15/17 Time of Surgery/Procedure: 09:22
[2017-08-15] MEDS: Carbidopa/Levodopa 50/200 CR PO SCH (10:24)
[2017-08-15] MEDS: Meropenem 1g/NS 100mL IVPB 1 GM/100 ML PIGGYBACK IVPB SCH ×2 (10:46→22:53)
[2017-08-15] MEDS: Collagenase 250 Units/gm Ointment(30 gm) TOP SCH (10:47)
--- NOTE | 2017-08-15 13:11 | CP.PCM.CON ---
<Bhupinder Thomson - Last Filed: 08/15/17 13:14> History of Present Illness - History of Present Illness History of Present Illness: PGY4 GI follow-up Pt seen and examined bedside obtunded no response other than spontaneous eye opening as per RN, no acute events overnight still NPO pulled NG tube last night ROS: 10 point ROS could not be conducted Past Patient History - Infectious Disease Hx of Infectious Diseases: None - Past Social History Smoking Status: Never Smoked - CARDIAC Hx Hypertension: Yes - PULMONARY Hx Respiratory Disorders: No - NEUROLOGICAL Hx Neurological Disorder: Yes Hx Parkinson's Disease: Yes - HEENT Hx HEENT Problems: Yes (eyeglasses) Other/Comment: eye sx fatty tissue removed from both eyelids - RENAL Hx Chronic Kidney Disease: No - ENDOCRINE/METABOLIC Hx Endocrine Disorders: No - HEMATOLOGICAL/ONCOLOGICAL Hx Blood Transfusions: No Hx Blood Transfusion Reaction: No - INTEGUMENTARY Hx Dermatological Problems: No - MUSCULOSKELETAL/RHEUMATOLOGICAL Hx Falls: No - GASTROINTESTINAL Hx Gastrointestinal Disorders: No - GENITOURINARY/GYNECOLOGICAL Hx Genitourinary Disorders: No - PSYCHIATRIC Hx Psychophysiologic Disorder: No Hx Substance Use: No - SURGICAL HISTORY Hx Surgeries: No - ANESTHESIA Hx Anesthesia Reactions: No Hx Malignant Hyperthermia: No Meds Allergies/Adverse Reactions: Allergies Allergy/AdvReac Type Severity Reaction Status Date / Time No Known Allergies Allergy Verified 05/21/17 11:09 - Medications Medications: Current Medications Acetaminophen (Tylenol 650mg/20.3ml Solution Ud) 650 mg NG Q6H PRN PRN Reason: Fever >100.4 F Last Admin: 08/12/17 01:38 Dose: 650 mg Albuterol Sulfate (Albuterol 0.083% Inhal Kerri (2.5 Mg/3 Ml) Ud) 2.5 mg IH Q2H PRN PRN Reason: Shortness of Breath Last Admin: 08/12/17 14:05 Dose: 2.5 mg Aspirin (Ecotrin) 81 mg PO DAILY [facility] Last Admin: 08/15/17 10:23 Dose: Not Given Atorvastatin Calcium (Lipitor) 10 mg PO DIN [facility] Last Admin: 08/14/17 18:00 Dose: Not Given Carbidopa/Levodopa (Sinemet Cr) 1 tab PO DAILY [facility] Last Admin: 08/15/17 10:24 Dose: Not Given Collagenase (Santyl) 0 gm TOP DAILY [facility] Last Admin: 08/15/17 10:47 Dose: Not Given Heparin Sodium (Porcine) (Heparin) 5,000 units SC Q12 [facility] PRN Reason: Protocol Last Admin: 08/15/17 10:46 Dose: 5,000 units Meropenem/Sodium Chloride (Meropenem 1g/Ns 100ml Ivpb) 1 gm in 100 mls @ 100 mls/hr IVPB Q12 [facility] PRN Reason: Protocol Last Admin: 08/15/17 10:46 Dose: 100 mls/hr Potassium Chloride/Dextrose/Sod Cl (Potassium Chl 40 Meq In D5-1/2ns) 1,000 mls @ 100 mls/hr IV .Q10H [facility] Last Admin: 08/15/17 05:11 Dose: Not Given Losartan Potassium (Cozaar) 50 mg PO DAILY [facility] Memantine (Namenda) 5 mg PO BID [facility] Last Admin: 08/15/17 10:23 Dose: Not Given Multivitamins/Minerals (Therapeutic-M Tab) 1 tab PO 0800 [facility] Last Admin: 08/15/17 08:00 Dose: Not Given Ondansetron HCl (Zofran Inj) 4 mg IVP ONCE PRN PRN Reason: Nausea/Vomiting Pantoprazole Sodium (Protonix Inj) 40 mg IVP DAILY [facility] Last Admin: 08/15/17 10:46 Dose: 40 mg Zinc Sulfate (Zinc Sulfate 220 Mg Cap) 220 mg PO DAILY [facility] Last Admin: 08/15/17 10:24 Dose: Not Given Physical Exam - Constitutional Appears: No Acute Distress, Cachectic, Chronically Ill - Head Exam Head Exam: ATRAUMATIC, NORMOCEPHALIC - Eye Exam Eye Exam: Normal appearance - ENT Exam ENT Exam: Mucous Membranes Moist - Neck Exam Neck exam: Positive for: Normal Inspection - Respiratory Exam Respiratory Exam: Clear to Auscultation Bilateral, NORMAL BREATHING PATTERN. absent: Rales, Rhonchi, Wheezes, Respiratory Distress - Cardiovascular Exam Cardiovascular Exam: REGULAR RHYTHM, +S1, +S2 - GI/Abdominal Exam GI & Abdominal Exam: Normal Bowel Sounds, Soft. absent: Distended, Firm, Guarding, Hernia, Pulsatile Mass, Rigid - Extremities Exam Extremities exam: Negative for: joint swelling, pedal edema - Neurological Exam Neurological exam: Altered - Skin Skin Exam: Dry, Intact, Normal Color, Warm Results - Vital Signs Recent Vital Signs: Last Vital Signs Temp 97.5 F L 02/20/18 12:00 Pulse 80 08/15/17 12:00 Resp 18 08/15/17 12:00 BP 139/68 08/15/17 12:00 Pulse Ox 99 08/15/17 09:49 - Labs Result Diagrams: 08/14/17 07:00 08/14/17 07:00 Assessment & Plan - Assessment and Plan (Free Text) Assessment: Christina Caldwell is a 87F w/ hx of Parkinson's disease, history of TIA, HTN, dyslipidemia, decubitus ulcer, dementia, history of eyelid surgery was brought in by family to [facility] [place] because of decreased appetite, confusion, and weakness. Consulted for diarrhea Acute diarrhea, DDx: infectous (c.diff neg), abx induced, overflow, laxative induced Sacral Decubitus TME Dysphagia due to AMS Plan: -stool culture pending, c. diff 08/12 neg -spoke to son on the phone and discussed possible PEG tube -as per son, they will have a family discussion and decide by tomorrow -Keep NPO -do not insert another NG at this time -abx as per ID -if pt continues to have sig liquid stool consider abd xray to eval for stool burden -poor prognosis D/W Dr. Richardson <Ye Richardson - Last Filed: 08/15/17 14:06> Meds - Medications Medications: Current Medications Acetaminophen (Tylenol 650mg/20.3ml Solution Ud) 650 mg NG Q6H PRN PRN Reason: Fever >100.4 F Last Admin: 08/12/17 01:38 Dose: 650 mg Albuterol Sulfate (Albuterol 0.083% Inhal Kerri (2.5 Mg/3 Ml) Ud) 2.5 mg IH Q2H PRN PRN Reason: Shortness of Breath Last Admin: 08/12/17 14:05 Dose: 2.5 mg Aspirin (Ecotrin) 81 mg PO DAILY [facility] Last Admin: 08/15/17 10:23 Dose: Not Given Atorvastatin Calcium (Lipitor) 10 mg PO DIN [facility] Last Admin: 08/14/17 18:00 Dose: Not Given Carbidopa/Levodopa (Sinemet Cr) 1 tab PO DAILY [facility] Last Admin: 08/15/17 10:24 Dose: Not Given Collagenase (Santyl) 0 gm TOP DAILY [facility] Last Admin: 08/15/17 10:47 Dose: Not Given Heparin Sodium (Porcine) (Heparin) 5,000 units SC Q12 [facility] PRN Reason: Protocol Last Admin: 08/15/17 10:46 Dose: 5,000 units Meropenem/Sodium Chloride (Meropenem 1g/Ns 100ml Ivpb) 1 gm in 100 mls @ 100 mls/hr IVPB Q12 [facility] PRN Reason: Protocol Last Admin: 08/15/17 10:46 Dose: 100 mls/hr Potassium Chloride/Dextrose/Sod Cl (Potassium Chl 40 Meq In D5-1/2ns) 1,000 mls @ 100 mls/hr IV .Q10H [facility] Last Admin: 08/15/17 05:11 Dose: Not Given Losartan Potassium (Cozaar) 50 mg PO DAILY [facility] Memantine (Namenda) 5 mg PO BID [facility] Last Admin: 08/15/17 10:23 Dose: Not Given Multivitamins/Minerals (Therapeutic-M Tab) 1 tab PO 0800 [facility] Last Admin: 08/15/17 08:00 Dose: Not Given Ondansetron HCl (Zofran Inj) 4 mg IVP ONCE PRN PRN Reason: Nausea/Vomiting Pantoprazole Sodium (Protonix Inj) 40 mg IVP DAILY [facility] Last Admin: 08/15/17 10:46 Dose: 40 mg Zinc Sulfate (Zinc Sulfate 220 Mg Cap) 220 mg PO DAILY [facility] Last Admin: 08/15/17 10:24 Dose: Not Given Results - Vital Signs Recent Vital Signs: Last Vital Signs Temp 97.5 F L 08/15/17 12:00 Pulse 80 08/15/17 12:00 Resp 18 08/15/17 12:00 BP 139/68 08/15/17 12:00 Pulse Ox 99 08/15/17 09:49 - Labs Result Diagrams: 08/15/17 13:30 08/15/17 13:30 Labs: Laboratory Results - last 24 hr 08/15/17 08/15/17 13:30 13:30 WBC 17.0 H RBC 3.18 L Hgb 8.8 L Hct 29.2 L MCV 91.8 D MCH 27.7 MCHC 30.1 L RDW 14.7 H Plt Count 581 H MPV 9.2 Gran % 82.9 H Lymph % (Auto) 12.8 L Tate % (Auto) 3.6 Eos % (Auto) 0.6 L Baso % (Auto) 0.1 Gran # 14.10 H Lymph # (Auto) 2.2 Tate # (Auto) 0.6 Eos # (Auto) 0.1 Baso # (Auto) 0.02 Sodium 139 Potassium 4.3 Chloride 108 H Carbon Dioxide 26 Anion Gap 8 L BUN 17 Creatinine 0.7 Est GFR ( Amer) > 60 Est GFR (Non-Af Amer) > 60 Random Glucose 121 H Calcium 7.6 L Phosphorus 2.2 L Magnesium 1.8 Total Bilirubin 0.3 AST 129 H D ALT 89 H Alkaline Phosphatase 100 Total Protein 5.4 L Albumin 2.0 L Globulin 3.4 Albumin/Globulin Ratio 0.6 L Attending/Attestation - Attestation I have personally seen and examined this patient.: Yes I have fully participated in the care of the patient.: Yes I have reviewed all pertinent clinical information: Yes Notes (Text): 08/15/17 14:05 87 year old female with h/o Parkinson's disease, HTN, HLD, h/o TIA, dementia a/ w failure to thrive and fecal impaction. 1. Failure to thrive 2. Fecal impaction Plan: -d/w family the role to PEG -they are deciding -they understand it doesn't change course of dementia, but would allow feeding/ medications
[2017-08-15 13:44] LABS: BASO # 0.02 K/mm3 (0.0-2.0); BASO % 0.1 % (0.0-3.0); EOS # 0.1 (0.0-0.7); EOS % 0.6 % (1.5-5.0); GRAN # 14.1 (1.4-6.5); GRAN % 82.9 % (50.0-68.0); HEMOGLOBIN 8.8 g/dL (12.0-16.0); LYMPH # 2.2 (1.2-3.4); LYMPH % 12.8 % (22.0-35.0); MEAN CELL VOLUME 91.8 fl (80.0-105.0); MEAN CORPUSCULAR HEMOGLOBIN 27.7 pg (25.0-35.0); MEAN CORPUSCULAR HGB CONC 30.1 g/dl (31.0-37.0); MEAN PLATELET VOLUME 9.2 fl (7.0-11.0); MONO # 0.6 (0.1-0.6); MONO % 3.6 % (1.0-6.0); RBC 3.18 10^6/uL (3.5-6.1); RED CELL DISTRIBUTION WIDTH 14.7 % (11.5-14.5)
[2017-08-15 13:49] LABS: ALB/GLOB RATIO 0.6 (1.1-1.8); ALT/SGPT 89 U/L (7-56); AST/SGOT 129 U/L (14-36); BLOOD UREA NITROGEN 17 mg/dL (7-21); CALCIUM 7.6 mg/dL (8.4-10.5); GFR AFRICAN-AMERICAN > 60; GFR NON-AFRICAN AMERICAN > 60; MAGNESIUM 1.8 mg/dL (1.7-2.2)
--- NOTE | 2017-08-15 14:51 | CP.PCM.PN ---
<Andrey Leiva - Last Filed: 08/15/17 14:48> Subjective - Date & Time of Evaluation Date of Evaluation: 08/15/17 Time of Evaluation: 11:00 - Subjective Subjective: Medicine progress note for Dr. Zuniga Hospitalist Service Patient seen and examined at bedside after repeat incision and drainage earlier in the morning. Patient was able to respond to us on rounds in a weak voice. She remains lethargic, speaks minimally, and thus unable to ascertain ROS. Objective - Vital Signs/Intake and Output Vital Signs (last 24 hours): Temp Pulse Resp BP Pulse Ox 97.5 F L 80 18 139/68 99 08/15/17 12:00 08/15/17 12:00 08/15/17 12:00 08/15/17 12:00 08/15/17 09:49 Intake and Output: 08/15/17 08/15/17 06:59 18:59 Intake Total 1200 0 Output Total 1050 Balance 150 0 - Medications Medications: Current Medications Acetaminophen (Tylenol 650mg/20.3ml Solution Ud) 650 mg NG Q6H PRN PRN Reason: Fever >100.4 F Last Admin: 08/12/17 01:38 Dose: 650 mg Albuterol Sulfate (Albuterol 0.083% Inhal Kerri (2.5 Mg/3 Ml) Ud) 2.5 mg IH Q2H PRN PRN Reason: Shortness of Breath Last Admin: 08/12/17 14:05 Dose: 2.5 mg Aspirin (Ecotrin) 81 mg PO DAILY [facility] Last Admin: 08/15/17 10:23 Dose: Not Given Atorvastatin Calcium (Lipitor) 10 mg PO DIN [facility] Last Admin: 08/14/17 18:00 Dose: Not Given Carbidopa/Levodopa (Sinemet Cr) 1 tab PO DAILY [facility] Last Admin: 08/15/17 10:24 Dose: Not Given Collagenase (Santyl) 0 gm TOP DAILY [facility] Last Admin: 08/15/17 10:47 Dose: Not Given Heparin Sodium (Porcine) (Heparin) 5,000 units SC Q12 ELLE PRN Reason: Protocol Last Admin: 08/15/17 10:46 Dose: 5,000 units Meropenem/Sodium Chloride (Meropenem 1g/Ns 100ml Ivpb) 1 gm in 100 mls @ 100 mls/hr IVPB Q12 ELLE PRN Reason: Protocol Last Admin: 08/15/17 10:46 Dose: 100 mls/hr Potassium Chloride/Dextrose/Sod Cl (Potassium Chl 40 Meq In D5-1/2ns) 1,000 mls @ 100 mls/hr IV .Q10H [facility] Last Admin: 08/15/17 05:11 Dose: Not Given Losartan Potassium (Cozaar) 50 mg PO DAILY [facility] Memantine (Namenda) 5 mg PO BID [facility] Last Admin: 08/15/17 10:23 Dose: Not Given Multivitamins/Minerals (Therapeutic-M Tab) 1 tab PO 0800 [facility] Last Admin: 08/15/17 08:00 Dose: Not Given Ondansetron HCl (Zofran Inj) 4 mg IVP ONCE PRN PRN Reason: Nausea/Vomiting Pantoprazole Sodium (Protonix Inj) 40 mg IVP DAILY [facility] Last Admin: 08/15/17 10:46 Dose: 40 mg Zinc Sulfate (Zinc Sulfate 220 Mg Cap) 220 mg PO DAILY [facility] Last Admin: 08/15/17 10:24 Dose: Not Given - Labs Labs: 08/15/17 13:30 08/15/17 13:30 PT 16.3 SECONDS (9.4-12.5) H 08/07/17 09:30 INR 1.41 (0.93-1.08) H 08/07/17 09:30 APTT 42.8 Seconds (25.1-36.5) H 08/07/17 09:30 - Constitutional Appears: No Acute Distress - Head Exam Head Exam: ATRAUMATIC, NORMOCEPHALIC - Eye Exam Eye Exam: EOMI, Normal appearance - ENT Exam ENT Exam: Mucous Membranes Moist - Respiratory Exam Respiratory Exam: Clear to Ausculation Bilateral, NORMAL BREATHING PATTERN. absent: Rales, Rhonchi, Wheezes - Cardiovascular Exam Cardiovascular Exam: REGULAR RHYTHM, +S1, +S2 - GI/Abdominal Exam GI & Abdominal Exam: Soft, Normal Bowel Sounds. absent: Distended, Firm, Guarding, Tenderness - Exam Additional comments: Farrar with sincere colored urine - Extremities Exam Extremities Exam: absent: Pedal Edema - Back Exam Additional comments: Wound vac in place actively draining over region of sacral ulcer - Neurological Exam Neurological Exam: Altered - Psychiatric Exam Additional comments: Lethargic - Skin Skin Exam: Warm Assessment and Plan - Assessment and Plan (Free Text) Assessment: This is an 87yo female with past medical history of Parkinson's, HTN, HLD, TIA admitted for sepsis secondary to sacral decubitus ulcer as well as hypernatremia secondary to poor PO intake. Debridement performed in the OR on . Per report, Stage 4 sacral decubitus ulcer, osteomyelitis of the sacrum, perirectal and gluteal abscess. Patient lethargic more than before today, and repeat Head CT was ordered but did not show any changes. Per family, they request all possible intervention for now. Family to decide on PEG tube soon. Plan: 1. Sepsis - secondary to sacral decubitus ulcer stage 4 per surgery with evidence of osteomyelitis of the sacrum, perirectal and gluteal abscess - Lactate: 3.2 - ID consulted- Merrem on board - As per surgery patient will undergo tentative debridement tomorrow - Failed swallow eval. - Patient pulled Dobhoff tube out overnight--hold per GI for possible PEG tube - urine cultures grew E. coli - decubitus culture grew E.coli and E. faecalis - Blood cultures with gram negative rods - Continue with multivitamin, Zinc - Tylenol prn fever - Samples from the first debridement on 08/09/17 resulted in gangrenous necrosis and granulation tissue formation - Patient underwent repeat debridement on 08/15/17 2. LEONARDA and Hypernatremia - Secondary to poor PO intake, - Continue IV fluids with D5 half NS with potassium - Nephrology consulted - urine osmolality 851 - continue to monitor 3. HTN - Normotensive - Will hold BP meds for now considering trend in vitals 4. HLD - Continue ASA and Lipitor 5. Parkinson's Disease - Sinemet, Namenda - PT eval 6. Hypokalemia - continue to monitor and replete, check mag 7. Hypophosphatemia - repleted - continue to monitor 8. Abdominal Distention - Possibly due to constipation - CT chest/abdomen/pelvis with IV & PO contrast showed proximal impaction - Miralax and colace discontinued due to diarrhea - GI consulted, recommendations appreciated - Disimpaction performed by surgery at bedside GI ppx: Protonix DVT ppx: Heparin, SCDs Disposition: Stage 4 sacral decubitus ulcer, osteomyelitis of the sacrum, perirectal and gluteal abscess per surgery. Per family, they wish for full code at this time. Patient went to the OR on 08/15/17 for another debridement. Surgery performed fecal disimpaction at bedside on 08/15/17. Per GI, family now evaluating PEG tube placement currently. Seen and discussed with Dr. Zuniga <Aldair Zuniga - Last Filed: 08/15/17 18:16> Objective - Vital Signs/Intake and Output Vital Signs (last 24 hours): Temp Pulse Resp BP Pulse Ox 97.5 F L 80 18 139/68 99 08/15/17 12:00 08/15/17 12:00 08/15/17 12:00 08/15/17 12:00 08/15/17 09:49 Intake and Output: 08/15/17 08/15/17 06:59 18:59 Intake Total 1200 0 Output Total 1050 Balance 150 0 - Medications Medications: Current Medications Acetaminophen (Tylenol 650mg/20.3ml Solution Ud) 650 mg NG Q6H PRN PRN Reason: Fever >100.4 F Last Admin: 08/12/17 01:38 Dose: 650 mg Albuterol Sulfate (Albuterol 0.083% Inhal Kerir (2.5 Mg/3 Ml) Ud) 2.5 mg IH Q2H PRN PRN Reason: Shortness of Breath Last Admin: 08/12/17 14:05 Dose: 2.5 mg Aspirin (Ecotrin) 81 mg PO DAILY [facility] Last Admin: 08/15/17 10:23 Dose: Not Given Atorvastatin Calcium (Lipitor) 10 mg PO DIN [facility] Last Admin: 08/14/17 18:00 Dose: Not Given Carbidopa/Levodopa (Sinemet Cr) 1 tab PO DAILY [facility] Last Admin: 08/15/17 10:24 Dose: Not Given Collagenase (Santyl) 0 gm TOP DAILY [facility] Last Admin: 08/15/17 10:47 Dose: Not Given Heparin Sodium (Porcine) (Heparin) 5,000 units SC Q12 [facility]LE PRN Reason: Protocol Last Admin: 08/15/17 10:46 Dose: 5,000 units Meropenem/Sodium Chloride (Meropenem 1g/Ns 100ml Ivpb) 1 gm in 100 mls @ 100 mls/hr IVPB Q12 [facility] PRN Reason: Protocol Last Admin: 08/15/17 10:46 Dose: 100 mls/hr Potassium Chloride/Dextrose/Sod Cl (Potassium Chl 40 Meq In D5-1/2ns) 1,000 mls @ 100 mls/hr IV .Q10H [facility] Last Admin: 08/15/17 15:44 Dose: 100 mls/hr Losartan Potassium (Cozaar) 50 mg PO DAILY [facility] Memantine (Namenda) 5 mg PO BID [facility] Last Admin: 08/15/17 10:23 Dose: Not Given Multivitamins/Minerals (Therapeutic-M Tab) 1 tab PO 0800 [facility] Last Admin: 08/15/17 08:00 Dose: Not Given Ondansetron HCl (Zofran Inj) 4 mg IVP ONCE PRN PRN Reason: Nausea/Vomiting Pantoprazole Sodium (Protonix Inj) 40 mg IVP DAILY [facility] Last Admin: 08/15/17 10:46 Dose: 40 mg Zinc Sulfate (Zinc Sulfate 220 Mg Cap) 220 mg PO DAILY [facility] Last Admin: 08/15/17 10:24 Dose: Not Given - Labs Labs: 08/15/17 13:30 08/15/17 13:30 PT 16.3 SECONDS (9.4-12.5) H 08/07/17 09:30 INR 1.41 (0.93-1.08) H 08/07/17 09:30 APTT 42.8 Seconds (25.1-36.5) H 08/07/17 09:30 Attending/Attestation - Attestation I have personally seen and examined this patient.: Yes I have fully participated in the care of the patient.: Yes I have reviewed all pertinent clinical information, including history, physical exam and plan: Yes Notes (Text): 08/15/17 16:35 attending note; Patient seen and examined with resident. Patient is a 87 year old female with history of Parkinson's, advanced dementia, hypertension, hyperlipidemia, TIA is admitted for altered mental status secondary to sepsis. Patient has sacral decubitus ulcer .status post debridement and wound VAC placement. s/p second debridement today. Wound VAC in place. Continue meropenem. osteomyelitis of sacrum, preeti rectal and gluteal abscess. Wound culture reveals E.coli and E.Fecalis. Intraoperative cultures grew EColi. Urine culture revealed EColi. advanced dementia; not communicating well. failed swallow evaluation. Needs PEG tube placement for feeding. GI evaluation appreciated. Dr. Richardson discussed with family for possible PEG placement tomorrow. Family to decide about PEG placement. patient needs long-term anti-biotics. Will discuss possible PICC line placement. case discussed with geriatric social worker for discharge planning. Upon discharge patient will follow up with Dr. Carter. Prognosis is poor. Case discussed with geriatric social worker for discharge planning.
[2017-08-15] MEDS ORDERED: POTASSIUM CHL IV SCH (17:12)
[2017-08-15] MEDS ORDERED: POTASSIUM PHOSPHATE IV SCH (17:12)
[2017-08-15] MEDS ORDERED: D5 IV SCH (17:12)
--- NOTE | 2017-08-15 17:20 | CP.PCM.PN ---
Subjective - Date & Time of Evaluation Date of Evaluation: 08/15/17 Time of Evaluation: 11:10 - Subjective Subjective: Lethargic, no fevers. Objective - Vital Signs/Intake and Output Vital Signs (last 24 hours): Temp Pulse Resp BP Pulse Ox 97.9 F 81 18 121/60 100 08/15/17 07:23 08/15/17 07:23 08/15/17 07:23 08/15/17 07:23 08/15/17 07:23 Intake and Output: 08/15/17 08/15/17 06:59 18:59 Intake Total 1200 Output Total 1050 Balance 150 - Medications Medications: Current Medications Acetaminophen (Tylenol 650mg/20.3ml Solution Ud) 650 mg NG Q6H PRN PRN Reason: Fever >100.4 F Last Admin: 08/12/17 01:38 Dose: 650 mg Albuterol Sulfate (Albuterol 0.083% Inhal Kerri (2.5 Mg/3 Ml) Ud) 2.5 mg IH Q2H PRN PRN Reason: Shortness of Breath Last Admin: 08/12/17 14:05 Dose: 2.5 mg Aspirin (Ecotrin) 81 mg PO DAILY [facility] Last Admin: 08/14/17 09:18 Dose: Not Given Atorvastatin Calcium (Lipitor) 10 mg PO DIN [facility] Last Admin: 08/14/17 18:00 Dose: Not Given Carbidopa/Levodopa (Sinemet Cr) 1 tab PO DAILY [facility] Last Admin: 08/14/17 09:17 Dose: Not Given Collagenase (Santyl) 0 gm TOP DAILY [facility] Last Admin: 08/14/17 11:22 Dose: Not Given Heparin Sodium (Porcine) (Heparin) 5,000 units SC Q12 [facility] PRN Reason: Protocol Last Admin: 08/14/17 22:34 Dose: 5,000 units Meropenem/Sodium Chloride (Meropenem 1g/Ns 100ml Ivpb) 1 gm in 100 mls @ 100 mls/hr IVPB Q12 [facility] PRN Reason: Protocol Last Admin: 08/14/17 22:34 Dose: 100 mls/hr Potassium Chloride/Dextrose/Sod Cl (Potassium Chl 40 Meq In D5-1/2ns) 1,000 mls @ 100 mls/hr IV .Q10H [facility] Last Admin: 08/15/17 05:11 Dose: Not Given Losartan Potassium (Cozaar) 50 mg PO DAILY [facility] Memantine (Namenda) 5 mg PO BID [facility] Last Admin: 08/14/17 18:00 Dose: Not Given Multivitamins/Minerals (Therapeutic-M Tab) 1 tab PO 0800 [facility] Last Admin: 08/14/17 09:17 Dose: Not Given Pantoprazole Sodium (Protonix Inj) 40 mg IVP DAILY [facility] Last Admin: 08/14/17 09:18 Dose: Not Given Zinc Sulfate (Zinc Sulfate 220 Mg Cap) 220 mg PO DAILY [facility] Last Admin: 08/14/17 09:18 Dose: Not Given - Labs Labs: 08/14/17 07:00 08/14/17 07:00 PT 16.3 SECONDS (9.4-12.5) H 08/07/17 09:30 INR 1.41 (0.93-1.08) H 08/07/17 09:30 APTT 42.8 Seconds (25.1-36.5) H 08/07/17 09:30 - Constitutional Appears: Chronically Ill - Head Exam Head Exam: NORMAL INSPECTION - Respiratory Exam Respiratory Exam: Decreased Breath Sounds - Cardiovascular Exam Cardiovascular Exam: +S1, +S2 - GI/Abdominal Exam GI & Abdominal Exam: Soft. absent: Tenderness Assessment and Plan - Assessment and Plan (Free Text) Plan: Assessment Systemic Inflammatory response Syndrome, consider severe sepsis with acute renal failure due to severe infection of sacral decubitus ulcer, R/O osteomyelitis, growing E. coli, for debridement today R/O recurrent aspiration diarrhea, probably antibiotic associated Parkinson's disease history of TIA HTN dyslipidemia decubitus ulcer dementia history of eyelid surgery Plan continue Merrem day 9 - follow up results of debridement scheduled today stool for C. diff. negative overall prognosis is poor - should consider hospice
[2017-08-15] MEDS: [UNRECOGNIZED DRUG - OTHER] IV SCH (19:37)
[2017-08-15] MEDS: DEXTROSE IV SCH (19:37)
[2017-08-15] MEDS: POTASSIUM PHOSPHATE IV SCH (19:37)
--- NOTE | 2017-08-15 21:19 | PN ---
DATE: SUBJECTIVE: Patient is currently seen lying supine in bed. Eyes are closed. She is unresponsive to me. Family is in the room. She is continuing to receive IV antibiotic therapy for urinary tract infection, sacral decubitus, and possible osteomyelitis. She is scheduled for transfer to and she is scheduled for placement of a PEG tube tomorrow. NG tube was removed. Patient is felt to be high-aspiration risk and is not receiving any oral hydration or nutrition at present. MEDICATIONS: Medication list reviewed. Patient is on albuterol; losartan; Ecotrin; heparin; Lipitor; meropenem; Namenda; IV fluids with potassium chloride, which will be switched over to potassium phosphorus; Protonix; Santyl; Sinemet; Therapeutic-M tabs; p.r.n. Tylenol; zinc; and Zofran p.r.n. OBJECTIVE: INTAKE AND OUTPUT: Intake 1200, output 1500. VITAL SIGNS: Blood pressure is 139/68, temperature 97.5, respiratory rate 18 with a pulse of 80. HEENT: Exam shows her eyes to be closed. NECK: No neck vein distention. CHEST: Clear to auscultation and percussion. No rales, rhonchi, or wheezing. CARDIOVASCULAR: Regular rate and rhythm without audible murmurs, rubs, or gallops. ABDOMEN: Soft. Bowel sounds normal. No rebound or guarding. No masses. EXTREMITIES: Show no lower extremity edema. No cyanosis or clubbing. BACK: Exam shows dressing over a large area covering a stage IV infected sacral decubitus. NEUROLOGICAL: Patient is unresponsive to verbal communication. LABORATORY DATA AND IMAGING STUDIES: CBC: Today, white blood cell count is 17.0 with a hemoglobin of 8.8 and a platelet count of 581,000. Chemistry shows normal electrolytes. Sodium 139, potassium 4.3, chloride 108 with a CO2 of 26, BUN is down to 17 with a creatinine of 0.7. Her renal parameters are normal. Glucose is 121. Calcium 7.6, corrected to normal for an albumin of 2.0. Phosphorus is low at 2.2 with a magnesium level of 1.9. Mild elevation of her liver enzymes. Microbiology: Urine was positive for yeast. Sacral decubitus is positive for E. coli and enterococcus. ASSESSMENT: 1. Status post acute renal failure status post hypernatremia. This is all felt to be secondary to dehydration. Patient will continue on hypotonic fluid administration, pending placement of a PEG tube tomorrow. 2. History of Escherichia coli urinary tract infection; history of Escherichia coli and enterococcus sacral decubitus with possible osteomyelitis. Patient will complete a course of antibiotics for both of these. 3. History of Parkinson's disease with dementia. Patient is currently non-communicative and nonresponsive to me. 4. History of hyperlipidemia. 5. History of anemia, which has worsened with IV fluid hydration. Hemoglobin is now down to 8.8. PLAN: 1. Continue to monitor labs on a regular basis. 2. I have switched patient to potassium, phosphorus supplement in place of KCl in her hypotonic IV fluids. 3. Agree with placement of a PEG tube as patient requires nutrition and oral hydration. This would allow us to discontinue IV fluid hydration. 4. Complete a course of antibiotics for her UTI, infected sacral decubitus, and possible osteomyelitis. Santos Friedman MD
--- NOTE | 2017-08-16 07:51 | OP ---
PROCEDURE DATE: 08/15/2017 PREOPERATIVE DIAGNOSES: 1. Stage IV sacral decubitus ulcer. 2. Right gluteal abscess. 3. Dementia. POSTOPERATIVE DIAGNOSES: 1. Stage IV sacral decubitus ulcer. 2. Right gluteal abscess. 3. Dementia. PROCEDURE DONE: 1. Excisional debridement of the stage IV sacral decubitus ulcer. 2. Incision and drainage of the right gluteal abscess. 3. Incision and drainage of deep muscular gluteal abscess with excisional debridement of the soft tissue of the gluteal region. SURGEON: Edilson Guzman MD WIRE THREADER: Surjit Jo PGY-3 resident. ANESTHESIA: Local anesthesia plus sedation. ESTIMATED BLOOD LOSS: Around 20 mL. DRAINS: The wound VAC was placed as a drain. COMPLICATIONS: None. INTRAOPERATIVE FINDINGS: The patient had approximately 10 x 10 x 5 cm sacral decubitus ulcer with one extension of the right gluteal abscess. There was also another deep intramuscular abscess on the right gluteal region and the excisional debridement of the soft tissue as well as surrounding muscles was done. DESCRIPTION OF PROCEDURE: On intraoperative steps, this is an 87-year-old female who was operated last week for excisional debridement of stage IV sacral decubitus ulcer with right gluteal abscess as well as perirectal abscess I and D. The patient's family was consented for the re-debridement of the wound as well as debridement of the soft tissue as well as I and D of the remaining abscess. Patient was brought to the OR, placed in the left lateral position. Local anesthesia was injected, sedation was given, and excisional debridement of the muscles and necrotic tissue was done. The right gluteal abscess was drained and was debrided. Patient was found to have a deep right gluteal abscess, deep to the gluteus muscles and that abscess was also drained and the cavity was debrided. Now, the extra necrotic muscles as well as the soft tissue from the gluteal as well as deep muscular abscess was debrided, and hemostasis was achieved. The wound VAC placed and tunneled to the right gluteal abscess as well as to the right deep intramuscular abscess and the wound VAC was connected to the suction, and there was no leak and hemostasis was achieved. The pulsed irrigation of the wound was done before placing the wound VAC. After that, the patient was sent to the Postanesthesia Care Unit in stable condition. The patient was reversed from sedation. Patient tolerated the procedure well. Count of the instrument and gauze was correct. There was no apparent complication. Edilson Guzman MD MTDDarien
[2017-08-16 08:46] LABS: BASO # 0.02 K/mm3 (0.0-2.0); BASO % 0.1 % (0.0-3.0); EOS # 0.1 (0.0-0.7); GRAN # 11.03 (1.4-6.5); HEMOGLOBIN 8.3 g/dL (12.0-16.0); LYMPH # 2.3 (1.2-3.4); LYMPH % 16.2 % (22.0-35.0); MEAN CELL VOLUME 86.8 fl (80.0-105.0); MEAN CORPUSCULAR HGB CONC 32.3 g/dl (31.0-37.0); MEAN PLATELET VOLUME 8.8 fl (7.0-11.0); MONO # 0.5 (0.1-0.6); MONO % 3.7 % (1.0-6.0); RBC 2.96 10^6/uL (3.5-6.1); RED CELL DISTRIBUTION WIDTH 14.4 % (11.5-14.5)
[2017-08-16] MEDS: Multivitamin With Minerals Tab PO SCH (08:57)
[2017-08-16 09:07] LABS: ALB/GLOB RATIO 0.6 (1.1-1.8); ALBUMIN 1.9 g/dL (3.0-4.8); ALT/SGPT 79 U/L (7-56); AST/SGOT 103 U/L (14-36); BLOOD UREA NITROGEN 12 mg/dL (7-21); CALCIUM 7.7 mg/dL (8.4-10.5); GFR AFRICAN-AMERICAN > 60; GFR NON-AFRICAN AMERICAN > 60; MAGNESIUM 1.7 mg/dL (1.7-2.2)
[2017-08-16] MEDS: Meropenem 1g/NS 100mL IVPB 1 GM/100 ML PIGGYBACK IVPB SCH ×2 (09:48→21:10)
[2017-08-16 10:15] LABS: INR 1.21 (0.93-1.08)
[2017-08-16] MEDS ORDERED: Benzocaine/Butamben/Tetracai 14-2-2% TOP Spray TOP ONE (10:20)
[2017-08-16] MEDS ORDERED: Midazolam 2 MG/2 ML VIAL ONE (10:28)
[2017-08-16] MEDS ORDERED: Flumazenil 0.1 mg/ml Inj (5ml) IVP ONE (10:28)
[2017-08-16] MEDS ORDERED: Etomidate 20 mg/10ml Inj IV ONE (10:33)
--- NOTE | 2017-08-16 11:33 | CP.PCM.PN ---
Subjective - Date & Time of Evaluation Date of Evaluation: 08/16/17 Objective - Vital Signs/Intake and Output Vital Signs (last 24 hours): Temp Pulse Resp BP Pulse Ox 98.9 F 100 H 22 139/65 100 08/16/17 10:23 08/16/17 10:23 08/16/17 10:23 08/16/17 10:23 08/16/17 10:23 Intake and Output: 08/16/17 08/16/17 06:59 18:59 Intake Total 0 Output Total 950 Balance -950 - Medications Medications: Current Medications Acetaminophen (Tylenol 650mg/20.3ml Solution Ud) 650 mg NG Q6H PRN PRN Reason: Fever >100.4 F Last Admin: 08/12/17 01:38 Dose: 650 mg Albuterol Sulfate (Albuterol 0.083% Inhal Kerri (2.5 Mg/3 Ml) Ud) 2.5 mg IH Q2H PRN PRN Reason: Shortness of Breath Last Admin: 08/12/17 14:05 Dose: 2.5 mg Aspirin (Ecotrin) 81 mg PO DAILY [facility] Last Admin: 08/15/17 10:23 Dose: Not Given Atorvastatin Calcium (Lipitor) 10 mg PO DIN [facility] Last Admin: 08/15/17 17:46 Dose: Not Given Carbidopa/Levodopa (Sinemet Cr) 1 tab PO DAILY [facility] Last Admin: 08/15/17 10:24 Dose: Not Given Collagenase (Santyl) 0 gm TOP DAILY [facility] Last Admin: 08/15/17 10:47 Dose: Not Given Heparin Sodium (Porcine) (Heparin) 5,000 units SC Q12 [facility] PRN Reason: Protocol Last Admin: 08/15/17 22:53 Dose: 5,000 units Meropenem/Sodium Chloride (Meropenem 1g/Ns 100ml Ivpb) 1 gm in 100 mls @ 100 mls/hr IVPB Q12 [facility] PRN Reason: Protocol Last Admin: 08/15/17 22:53 Dose: 100 mls/hr Potassium Phosphate 10 mmole/ (Dextrose/Sodium Chloride) 1,003.3333 mls @ 75 mls/hr IV .[id number] [facility] Last Admin: 08/15/17 19:37 Dose: 75 mls/hr Losartan Potassium (Cozaar) 50 mg PO DAILY [facility] Memantine (Namenda) 5 mg PO BID [facility] Last Admin: 08/15/17 21:12 Dose: Not Given Multivitamins/Minerals (Therapeutic-M Tab) 1 tab PO 0800 [facility] Last Admin: 08/16/17 08:57 Dose: Not Given Ondansetron HCl (Zofran Inj) 4 mg IVP ONCE PRN PRN Reason: Nausea/Vomiting Pantoprazole Sodium (Protonix Inj) 40 mg IVP DAILY [facility] Last Admin: 08/15/17 10:46 Dose: 40 mg Zinc Sulfate (Zinc Sulfate 220 Mg Cap) 220 mg PO DAILY [facility] Last Admin: 08/15/17 10:24 Dose: Not Given - Labs Labs: 08/16/17 08:10 08/16/17 08:10 PT 14.0 SECONDS (9.4-12.5) H 08/16/17 10:00 INR 1.21 (0.93-1.08) H 08/16/17 10:00 APTT 42.8 Seconds (25.1-36.5) H 08/07/17 09:30
[2017-08-16 12:04] LABS: HEPATITIS B SURFACE AG Negative (NEGATIVE)
[2017-08-16 12:09] LABS: HEPATITIS A IGM NEGATIVE (NEGATIVE); HEPATITIS B CORE AB NEGATIVE (NEGATIVE)
[2017-08-16 12:21] LABS: HEPATITIS C ANTIBODY NEGATIVE (NEGATIVE)
[2017-08-16] MEDS: Carbidopa/Levodopa 50/200 CR PO SCH (12:38)
[2017-08-16] MEDS: Collagenase 250 Units/gm Ointment(30 gm) TOP SCH (12:38)
--- NOTE | 2017-08-16 13:56 | CP.PCM.PN ---
<CaliAndrey S - Last Filed: 08/16/17 15:42> Subjective - Date & Time of Evaluation Date of Evaluation: 08/16/17 Time of Evaluation: 07:00 - Subjective Subjective: Medicine progress note for Dr. Zuniga Hospitalist Service Patient seen and examined at bedside. Could not arouse patient during encounter. Could not obtain ROS. Objective - Vital Signs/Intake and Output Vital Signs (last 24 hours): Temp Pulse Resp BP Pulse Ox 98 F 86 16 155/76 H 100 08/16/17 12:11 08/16/17 12:11 08/16/17 12:11 08/16/17 12:11 08/16/17 12:11 Intake and Output: 08/16/17 08/16/17 06:59 18:59 Intake Total 0 Output Total 950 Balance -950 - Medications Medications: Current Medications Acetaminophen (Tylenol 650mg/20.3ml Solution Ud) 650 mg NG Q6H PRN PRN Reason: Fever >100.4 F Last Admin: 08/12/17 01:38 Dose: 650 mg Albuterol Sulfate (Albuterol 0.083% Inhal Kerri (2.5 Mg/3 Ml) Ud) 2.5 mg IH Q2H PRN PRN Reason: Shortness of Breath Last Admin: 08/12/17 14:05 Dose: 2.5 mg Aspirin (Ecotrin) 81 mg PO DAILY [facility] Last Admin: 08/16/17 12:37 Dose: Not Given Atorvastatin Calcium (Lipitor) 10 mg PO DIN [facility] Last Admin: 08/15/17 17:46 Dose: Not Given Carbidopa/Levodopa (Sinemet Cr) 1 tab PO DAILY [facility] Last Admin: 08/16/17 12:38 Dose: Not Given Collagenase (Santyl) 0 gm TOP DAILY [facility] Last Admin: 08/16/17 12:38 Dose: Not Given Heparin Sodium (Porcine) (Heparin) 5,000 units SC Q12 [facility] PRN Reason: Protocol Last Admin: 08/16/17 12:37 Dose: Not Given Meropenem/Sodium Chloride (Meropenem 1g/Ns 100ml Ivpb) 1 gm in 100 mls @ 100 mls/hr IVPB Q12 [place] PRN Reason: Protocol Last Admin: 08/16/17 09:48 Dose: 100 mls/hr Potassium Phosphate 10 mmole/ (Dextrose/Sodium Chloride) 1,003.3333 mls @ 75 mls/hr IV .[id number] [facility] Last Admin: 08/15/17 19:37 Dose: 75 mls/hr Losartan Potassium (Cozaar) 50 mg PO DAILY [facility] Memantine (Namenda) 5 mg PO BID [facility] Last Admin: 08/16/17 12:37 Dose: Not Given Multivitamins/Minerals (Therapeutic-M Tab) 1 tab PO 0800 [facility] Last Admin: 08/16/17 08:57 Dose: Not Given Ondansetron HCl (Zofran Inj) 4 mg IVP ONCE PRN PRN Reason: Nausea/Vomiting Pantoprazole Sodium (Protonix Inj) 40 mg IVP DAILY [facility] Last Admin: 08/16/17 09:48 Dose: 40 mg Zinc Sulfate (Zinc Sulfate 220 Mg Cap) 220 mg PO DAILY [facility] Last Admin: 08/16/17 12:38 Dose: Not Given - Labs Labs: 08/16/17 08:10 08/16/17 08:10 PT 14.0 SECONDS (9.4-12.5) H 08/16/17 10:00 INR 1.21 (0.93-1.08) H 08/16/17 10:00 APTT 42.8 Seconds (25.1-36.5) H 08/07/17 09:30 - Constitutional Appears: No Acute Distress, Chronically Ill - Head Exam Head Exam: ATRAUMATIC, NORMOCEPHALIC - Eye Exam Eye Exam: Normal appearance - ENT Exam ENT Exam: Mucous Membranes Moist - Respiratory Exam Respiratory Exam: Clear to Ausculation Bilateral, NORMAL BREATHING PATTERN. absent: Rales, Rhonchi, Wheezes - Cardiovascular Exam Cardiovascular Exam: REGULAR RHYTHM, +S1, +S2 - GI/Abdominal Exam GI & Abdominal Exam: Soft, Normal Bowel Sounds. absent: Distended, Firm, Tenderness - Exam Additional comments: Farrar in place with sincere colored urine - Extremities Exam Extremities Exam: absent: Pedal Edema - Back Exam Additional comments: Wound vac in place actively draining over region of sacral ulcer - Neurological Exam Neurological Exam: Altered - Psychiatric Exam Additional comments: Lethargic - Skin Skin Exam: Warm Assessment and Plan - Assessment and Plan (Free Text) Assessment: This is an 87yo female with past medical history of Parkinson's, HTN, HLD, TIA admitted for sepsis secondary to sacral decubitus ulcer as well as hypernatremia secondary to poor PO intake. Debridement performed in the OR on . Per report, Stage 4 sacral decubitus ulcer, osteomyelitis of the sacrum, perirectal and gluteal abscess. Patient lethargic more than before today, and repeat Head CT was ordered but did not show any changes. Per family, they request all possible intervention for now. Patient is for PEG tube later today and is pending PICC line placement for long-term antibiotics. Plan: 1. Sepsis - secondary to sacral decubitus ulcer stage 4 per surgery with evidence of osteomyelitis of the sacrum, perirectal and gluteal abscess - Lactate: 3.2 - ID consulted- Merrem on board (day 10) - As per surgery patient will undergo tentative debridement tomorrow - Failed swallow eval. - urine cultures grew E. coli - decubitus culture grew E.coli and E. faecalis - Blood cultures with gram negative rods - Continue with multivitamin, Zinc - Tylenol prn fever - Samples from the first debridement on 08/09/17 resulted in gangrenous necrosis and granulation tissue formation - Patient underwent repeat debridement on 08/15/17.--No further debridement per surgery (outpatient follow up with Dr. Guzman in 2 weeks) 2. LEONARDA and Hypernatremia - Secondary to poor PO intake, - Continue IV fluids with D5 half NS with potassium - Nephrology consulted - urine osmolality 851 - continue to monitor 3. HTN - Normotensive - Will hold BP meds for now considering trend in vitals 4. HLD - Continue ASA and Lipitor 5. Parkinson's Disease - Sinemet, Namenda - PT eval 6. Hypokalemia - continue to monitor and replete, check mag 7. Hypophosphatemia - repleted - continue to monitor 8. Abdominal Distention - Possibly due to constipation - CT chest/abdomen/pelvis with IV & PO contrast showed proximal impaction - Miralax and colace discontinued due to diarrhea - GI consulted, recommendations appreciated - Disimpaction performed by surgery at bedside on 08/15/17 GI ppx: Protonix DVT ppx: Heparin, SCDs Disposition: Stage 4 sacral decubitus ulcer, osteomyelitis of the sacrum, perirectal and gluteal abscess per surgery. Per family, they wish for full code at this time. Patient went to the OR on 08/15/17 for another debridement. Surgery performed fecal disimpaction at bedside on 08/15/17. Patient is for PEG tube later today and is pending PICC line placement for custodial antibiotics. Awaiting full ID recommendations for antibiotics as this will affect discharge planning. Seen and discussed with Dr. Zuniga <Aldair Zuniga - Last Filed: 08/16/17 18:50> Objective - Vital Signs/Intake and Output Vital Signs (last 24 hours): Temp Pulse Resp BP Pulse Ox 98.3 F 72 20 147/82 99 08/16/17 16:00 08/16/17 16:00 08/16/17 16:00 08/16/17 16:00 08/16/17 16:00 Intake and Output: 08/16/17 08/16/17 06:59 18:59 Intake Total 0 Output Total 950 Balance -950 - Medications Medications: Current Medications Acetaminophen (Tylenol 650mg/20.3ml Solution Ud) 650 mg NG Q6H PRN PRN Reason: Fever >100.4 F Last Admin: 08/12/17 01:38 Dose: 650 mg Albuterol Sulfate (Albuterol 0.083% Inhal Kerri (2.5 Mg/3 Ml) Ud) 2.5 mg IH Q2H PRN PRN Reason: Shortness of Breath Last Admin: 08/12/17 14:05 Dose: 2.5 mg Aspirin (Ecotrin) 81 mg PO DAILY [facility] Last Admin: 08/16/17 12:37 Dose: Not Given Atorvastatin Calcium (Lipitor) 10 mg PO DIN [facility] Last Admin: 08/16/17 18:16 Dose: 10 mg Carbidopa/Levodopa (Sinemet Cr) 1 tab PO DAILY [facility] Last Admin: 08/16/17 12:38 Dose: Not Given Collagenase (Santyl) 0 gm TOP DAILY [facility] Last Admin: 08/16/17 12:38 Dose: Not Given Heparin Sodium (Porcine) (Heparin) 5,000 units SC Q12 [facility] PRN Reason: Protocol Last Admin: 08/16/17 12:37 Dose: Not Given Meropenem/Sodium Chloride (Meropenem 1g/Ns 100ml Ivpb) 1 gm in 100 mls @ 100 mls/hr IVPB Q12 [place] PRN Reason: Protocol Last Admin: 02/21/18 09:48 Dose: 100 mls/hr Potassium Phosphate 10 mmole/ (Dextrose/Sodium Chloride) 1,003.3333 mls @ 75 mls/hr IV .[id number] [facility] Last Admin: 08/15/17 19:37 Dose: 75 mls/hr Losartan Potassium (Cozaar) 50 mg PO DAILY [facility] Memantine (Namenda) 5 mg PO BID [facility] Last Admin: 08/16/17 18:16 Dose: 5 mg Multivitamins/Minerals (Therapeutic-M Tab) 1 tab PO 0800 [facility] Last Admin: 08/16/17 08:57 Dose: Not Given Ondansetron HCl (Zofran Inj) 4 mg IVP ONCE PRN PRN Reason: Nausea/Vomiting Pantoprazole Sodium (Protonix Inj) 40 mg IVP DAILY [facility] Last Admin: 08/16/17 09:48 Dose: 40 mg Zinc Sulfate (Zinc Sulfate 220 Mg Cap) 220 mg PO DAILY [facility] Last Admin: 08/16/17 12:38 Dose: Not Given - Labs Labs: 08/16/17 08:10 08/16/17 08:10 PT 14.0 SECONDS (9.4-12.5) H 08/16/17 10:00 INR 1.21 (0.93-1.08) H 08/16/17 10:00 APTT 42.8 Seconds (25.1-36.5) H 08/07/17 09:30 Attending/Attestation - Attestation I have personally seen and examined this patient.: Yes I have fully participated in the care of the patient.: Yes I have reviewed all pertinent clinical information, including history, physical exam and plan: Yes Notes (Text): 08/16/17 18:49 attending note; Patient seen and examined with resident. Patient is a 87 year old female with history of Parkinson's, advanced dementia, hypertension, hyperlipidemia, TIA is admitted for altered mental status secondary to sepsis. Patient has sacral decubitus ulcer .status post debridement and wound VAC placement. s/p second debridement today. Wound VAC in place. Continue meropenem. osteomyelitis of sacrum, preeti rectal and gluteal abscess. Wound culture reveals E.coli and E.Fecalis. Intraoperative cultures grew EColi. Urine culture revealed EColi. advanced dementia; not communicating well. failed swallow evaluation. Status post PEG tube placement. patient needs long-term anti-biotics. Case discussed with son in detail for PICC line placement. PICC line team informed. case discussed with social work professor for discharge planning. Upon discharge patient will follow up with Dr. Carter. Prognosis is poor. Case discussed with social work professor for discharge planning.
--- NOTE | 2017-08-16 16:15 | CP.PCM.PN ---
Subjective - Date & Time of Evaluation Date of Evaluation: 08/16/17 Time of Evaluation: 12:00 - Subjective Subjective: Patient was seen and examined at bedside. Patient had a PEG tube placed and was in no acute distress but minimally interactive. Per nursing wound inferior portion of wound vac was not sealed D/T soiling with stool but was replaced by wound care nursing. Wound vac was in place with good suction at time of exam. Objective - Vital Signs/Intake and Output Vital Signs (last 24 hours): Temp Pulse Resp BP Pulse Ox 98 F 86 16 155/76 H 100 08/16/17 12:11 08/16/17 12:11 08/16/17 12:11 08/16/17 12:11 08/16/17 12:11 Intake and Output: 08/16/17 08/16/17 06:59 18:59 Intake Total 0 Output Total 950 Balance -950 - Medications Medications: Current Medications Acetaminophen (Tylenol 650mg/20.3ml Solution Ud) 650 mg NG Q6H PRN PRN Reason: Fever >100.4 F Last Admin: 08/12/17 01:38 Dose: 650 mg Albuterol Sulfate (Albuterol 0.083% Inhal Kerri (2.5 Mg/3 Ml) Ud) 2.5 mg IH Q2H PRN PRN Reason: Shortness of Breath Last Admin: 08/12/17 14:05 Dose: 2.5 mg Aspirin (Ecotrin) 81 mg PO DAILY [facility] Last Admin: 08/16/17 12:37 Dose: Not Given Atorvastatin Calcium (Lipitor) 10 mg PO DIN [facility] Last Admin: 08/15/17 17:46 Dose: Not Given Carbidopa/Levodopa (Sinemet Cr) 1 tab PO DAILY [facility] Last Admin: 08/16/17 12:38 Dose: Not Given Collagenase (Santyl) 0 gm TOP DAILY [facility] Last Admin: 08/16/17 12:38 Dose: Not Given Heparin Sodium (Porcine) (Heparin) 5,000 units SC Q12 [place] PRN Reason: Protocol Last Admin: 08/16/17 12:37 Dose: Not Given Meropenem/Sodium Chloride (Meropenem 1g/Ns 100ml Ivpb) 1 gm in 100 mls @ 100 mls/hr IVPB Q12 [place] PRN Reason: Protocol Last Admin: 08/16/17 09:48 Dose: 100 mls/hr Potassium Phosphate 10 mmole/ (Dextrose/Sodium Chloride) 1,003.3333 mls @ 75 mls/hr IV .[id number] [facility] Last Admin: 08/15/17 19:37 Dose: 75 mls/hr Losartan Potassium (Cozaar) 50 mg PO DAILY [facility] Memantine (Namenda) 5 mg PO BID [facility] Last Admin: 08/16/17 12:37 Dose: Not Given Multivitamins/Minerals (Therapeutic-M Tab) 1 tab PO 0800 [facility] Last Admin: 08/16/17 08:57 Dose: Not Given Ondansetron HCl (Zofran Inj) 4 mg IVP ONCE PRN PRN Reason: Nausea/Vomiting Pantoprazole Sodium (Protonix Inj) 40 mg IVP DAILY [facility] Last Admin: 08/16/17 09:48 Dose: 40 mg Zinc Sulfate (Zinc Sulfate 220 Mg Cap) 220 mg PO DAILY [facility] Last Admin: 08/16/17 12:38 Dose: Not Given - Labs Labs: 08/16/17 08:10 08/16/17 08:10 PT 14.0 SECONDS (9.4-12.5) H 08/16/17 10:00 INR 1.21 (0.93-1.08) H 08/16/17 10:00 APTT 42.8 Seconds (25.1-36.5) H 08/07/17 09:30 - Constitutional Appears: No Acute Distress, Chronically Ill - Head Exam Head Exam: ATRAUMATIC, NORMOCEPHALIC - Eye Exam Eye Exam: Normal appearance. absent: Conjunctival injection, Scleral icterus - ENT Exam ENT Exam: Mucous Membranes Moist, Normal Oropharynx - Respiratory Exam Respiratory Exam: NORMAL BREATHING PATTERN. absent: Accessory Muscle Use, Respiratory Distress - GI/Abdominal Exam GI & Abdominal Exam: absent: Distended - Neurological Exam Neurological Exam: Altered - Skin Skin Exam: Dry, Normal Color, Warm Assessment and Plan - Assessment and Plan (Free Text) Assessment: 87F s/p 2 sacral wound debridement's and wound vac placement for sacral ducubitus ulcers with gluteal abscesses Plan: -Continue wound vac to 125mmHg continuous suction. Will change on Monday if patient is still here -Continue antibiotics per ID -Management per primary -No further surgical debridement necessary this hospitalization -Once patient is discharged the wound vac must be continued on continuous 125mmHg suction and changed every three days. The wound has three areas of foam that must be replaced during changes--the central wound over the sacrum with an extension laterally into the left buttock and inferiorly along the left gluteal fold. Discussed with Dr. Megan Ortiz, PGY2
--- NOTE | 2017-08-16 22:24 | PN ---
DATE: 08/16/2017 SUBJECTIVE: The patient is seen lying in bed. She does not appear to be in discomfort, but she is nonverbal. She is just back from PEG placement. PHYSICAL EXAMINATION: GENERAL: Elderly lady lying in bed. VITAL SIGNS: Blood pressure 155/76, heart rate 86, respiratory rate 16, and temperature 98. HEENT: Normocephalic, atraumatic. NECK: Supple, no JVD. LUNGS: Bilateral equal air entry, no rales. CARDIAC: S1, S2. Regular rate and rhythm. No murmur, no rub. ABDOMEN: Soft, nondistended, nontender, bowel sounds present. EXTREMITIES: No lower extremity edema. INTAKE AND OUTPUT: . LABORATORY DATA: WBC 14, hemoglobin 8.3, hematocrit 26, platelets 535. Sodium 137, potassium 4.4, chloride 105, CO2 of 27, BUN 12, creatinine 0.6, glucose 109, calcium 7.7, phosphorus 2.6, magnesium 1.7. AST 103, ALT 109. Urine culture, yeast. CURRENT MEDICATIONS: Cozaar 50, Ecotrin, heparin, insulin, Lipitor, meropenem, Namenda, D5 half-normal saline with 10 millimoles of potassium phosphate, Protonix, Sinemet, Tylenol, zinc, and Zofran. ASSESSMENT: 1. Resolved hypernatremia. 2. Severe sepsis. 3. Wound infection/sacral osteomyelitis. 4. Advanced dementia. 5. Resolved hypokalemia. 6. Resolved hypophosphatemia. 7. Severe malnutrition/hypoalbuminemia. PLAN: 1. Continue IV fluids for the time being. 2. Start PEG feeds when able. 3. Continue antibiotics as per ID recommendations. 4. Monitor urine output and electrolytes. Sharonda Del Rio MD
[2017-08-17] MEDS: POTASSIUM PHOSPHATE IV SCH (03:20)
[2017-08-17] MEDS: DEXTROSE IV SCH (03:20)
[2017-08-17] MEDS: [UNRECOGNIZED DRUG - OTHER] IV SCH (03:20)
[2017-08-17 07:07] LABS: BASO # 0.01 K/mm3 (0.0-2.0); BASO % 0.1 % (0.0-3.0); EOS # 0.2 (0.0-0.7); EOS % 1.1 % (1.5-5.0); GRAN # 10.55 (1.4-6.5); GRAN % 78.6 % (50.0-68.0); HEMOGLOBIN 7.9 g/dL (12.0-16.0); LYMPH # 2.1 (1.2-3.4); LYMPH % 15.9 % (22.0-35.0); MEAN CORPUSCULAR HEMOGLOBIN 27.6 pg (25.0-35.0); MEAN CORPUSCULAR HGB CONC 32.1 g/dl (31.0-37.0); MEAN PLATELET VOLUME 8.6 fl (7.0-11.0); MONO # 0.6 (0.1-0.6); MONO % 4.3 % (1.0-6.0); RBC 2.86 10^6/uL (3.5-6.1); RED CELL DISTRIBUTION WIDTH 14.4 % (11.5-14.5); WHITE BLOOD COUNT 13.4 10^3/ul (4.5-11.0)
[2017-08-17 07:32] LABS: ALB/GLOB RATIO 0.6 (1.1-1.8); ALBUMIN 1.9 g/dL (3.0-4.8); ALT/SGPT 61 U/L (7-56); AST/SGOT 69 U/L (14-36); BLOOD UREA NITROGEN 8 mg/dL (7-21); CALCIUM 7.4 mg/dL (8.4-10.5); GFR AFRICAN-AMERICAN > 60; GFR NON-AFRICAN AMERICAN > 60; MAGNESIUM 1.6 mg/dL (1.7-2.2)
[2017-08-17 08:18] LABS: CERULOPLASMIN 25 mg/dL (18-53)
[2017-08-17 08:23] VITALS: O2SAT 98
[2017-08-17] MEDS ORDERED: Magnesium Sulfate 1 gm in D5W 1 GM/100 ML BAG IVPB ONE (08:34)
--- NOTE | 2017-08-17 08:53 | CP.PCM.PN ---
<Bhupinder Thomson - Last Filed: 08/17/17 08:54> Subjective - Date & Time of Evaluation Date of Evaluation: 08/17/17 Time of Evaluation: 07:00 - Subjective Subjective: PGY4 GI Progress Note Pt seen and examined bedside No meaningful communication Response to painful stimuli ROS: could not be conducted Objective - Vital Signs/Intake and Output Vital Signs (last 24 hours): Temp Pulse Resp BP Pulse Ox 98.0 F 89 20 119/66 98 08/17/17 07:30 08/17/17 07:30 08/17/17 07:30 08/17/17 07:30 08/17/17 07:30 Intake and Output: 08/17/17 08/17/17 06:59 18:59 Intake Total 890 Output Total 550 Balance 340 - Medications Medications: Current Medications Acetaminophen (Tylenol 650mg/20.3ml Solution Ud) 650 mg NG Q6H PRN PRN Reason: Fever >100.4 F Last Admin: 08/12/17 01:38 Dose: 650 mg Albuterol Sulfate (Albuterol 0.083% Inhal Kerri (2.5 Mg/3 Ml) Ud) 2.5 mg IH Q2H PRN PRN Reason: Shortness of Breath Last Admin: 08/12/17 14:05 Dose: 2.5 mg Aspirin (Ecotrin) 81 mg PO DAILY [facility] Last Admin: 08/16/17 12:37 Dose: Not Given Atorvastatin Calcium (Lipitor) 10 mg PO DIN [facility] Last Admin: 08/16/17 18:16 Dose: 10 mg Carbidopa/Levodopa (Sinemet Cr) 1 tab PO DAILY [facility] Last Admin: 08/16/17 12:38 Dose: Not Given Collagenase (Santyl) 0 gm TOP DAILY [facility] Last Admin: 08/16/17 12:38 Dose: Not Given Heparin Sodium (Porcine) (Heparin) 5,000 units SC Q12 [place] PRN Reason: Protocol Last Admin: 08/16/17 21:07 Dose: 5,000 units Meropenem/Sodium Chloride (Meropenem 1g/Ns 100ml Ivpb) 1 gm in 100 mls @ 100 mls/hr IVPB Q12 [place] PRN Reason: Protocol Last Admin: 08/16/17 21:10 Dose: 100 mls/hr Potassium Phosphate 10 mmole/ (Dextrose/Sodium Chloride) 1,003.3333 mls @ 75 mls/hr IV .[id number] [facility] Last Admin: 08/17/17 03:20 Dose: 75 mls/hr Magnesium Sulfate/Dextrose (Magnesium Sulfate 1 Gm/100 Ml D5w) 1 gm in 100 mls @ 100 mls/hr IVPB ONCE ONE Stop: 08/17/17 09:33 Losartan Potassium (Cozaar) 50 mg PO DAILY [facility] Memantine (Namenda) 5 mg PO BID [facility] Last Admin: 08/16/17 18:16 Dose: 5 mg Multivitamins/Minerals (Therapeutic-M Tab) 1 tab PO 0800 [facility] Last Admin: 08/16/17 08:57 Dose: Not Given Ondansetron HCl (Zofran Inj) 4 mg IVP ONCE PRN PRN Reason: Nausea/Vomiting Pantoprazole Sodium (Protonix Inj) 40 mg IVP DAILY [facility] Last Admin: 08/16/17 09:48 Dose: 40 mg Zinc Sulfate (Zinc Sulfate 220 Mg Cap) 220 mg PO DAILY [facility] Last Admin: 08/16/17 12:38 Dose: Not Given - Labs Labs: 08/17/17 06:20 08/17/17 06:20 PT 14.0 SECONDS (9.4-12.5) H 08/16/17 10:00 INR 1.21 (0.93-1.08) H 08/16/17 10:00 APTT 42.8 Seconds (25.1-36.5) H 08/07/17 09:30 - Head Exam Head Exam: ATRAUMATIC, NORMOCEPHALIC - Eye Exam Eye Exam: Normal appearance - ENT Exam ENT Exam: Normal Exam - Neck Exam Neck Exam: Normal Inspection - Respiratory Exam Respiratory Exam: Clear to Ausculation Bilateral, NORMAL BREATHING PATTERN. absent: Decreased Breath Sounds, Prolonged Expiratory Phase, Rales, Rhonchi, Wheezes - Cardiovascular Exam Cardiovascular Exam: REGULAR RHYTHM, +S1, +S2 - GI/Abdominal Exam GI & Abdominal Exam: Soft, Normal Bowel Sounds. absent: Tenderness, Diminished Bowel Sounds, Hernia, Hyperactive Bowel Sounds Additional comments: PEG insertion site is intact, no induration, no discharge - Extremities Exam Extremities Exam: Normal Capillary Refill, Normal Inspection. absent: Pedal Edema, Tenderness - Neurological Exam Neurological Exam: Alert, Awake, Oriented x3 - Psychiatric Exam Psychiatric exam: Normal Affect, Normal Mood - Skin Skin Exam: Intact, Normal Color, Warm Assessment and Plan - Assessment and Plan (Free Text) Assessment: Christina Caldwell is a 87F w/ hx of Parkinson's disease, history of TIA, HTN, dyslipidemia, decubitus ulcer, dementia, history of eyelid surgery was brought in by family to [facility] [place] because of decreased appetite, confusion, and weakness. s/p PEG POD #1 Fecal impaction, s/p disimpaction Overflow diarrhea, resolved Sacral Decubitus TME Dysphagia due to AMS Plan: -will start miralax BID -continue abx as per primary team -would continue bowel regiment at home of miralax BID -recommend sap functional analyst follow-up for feeds -can use peg for feeds, meds , and water -will sign off D/W Dr. Richardson <Ye Richardson - Last Filed: 08/17/17 11:58> Objective - Vital Signs/Intake and Output Vital Signs (last 24 hours): Temp Pulse Resp BP Pulse Ox 98.0 F 89 20 119/66 98 08/17/17 07:30 08/17/17 10:27 08/17/17 07:30 08/17/17 10:27 08/17/17 07:30 Intake and Output: 08/17/17 08/17/17 06:59 18:59 Intake Total 890 Output Total 550 Balance 340 - Medications Medications: Current Medications Acetaminophen (Tylenol 650mg/20.3ml Solution Ud) 650 mg NG Q6H PRN PRN Reason: Fever >100.4 F Last Admin: 08/12/17 01:38 Dose: 650 mg Albuterol Sulfate (Albuterol 0.083% Inhal Kerri (2.5 Mg/3 Ml) Ud) 2.5 mg IH Q2H PRN PRN Reason: Shortness of Breath Last Admin: 08/12/17 14:05 Dose: 2.5 mg Aspirin (Ecotrin) 81 mg PO DAILY [facility] Last Admin: 08/17/17 10:26 Dose: 81 mg Atorvastatin Calcium (Lipitor) 10 mg PO DIN [facility] Last Admin: 08/16/17 18:16 Dose: 10 mg Carbidopa/Levodopa (Sinemet Cr) 1 tab PO DAILY [facility] Last Admin: 08/17/17 10:27 Dose: 1 tab Collagenase (Santyl) 0 gm TOP DAILY [facility] Last Admin: 08/17/17 11:43 Dose: Not Given Heparin Sodium (Porcine) (Heparin) 5,000 units SC Q12 [place] PRN Reason: Protocol Last Admin: 08/17/17 10:28 Dose: 5,000 units Meropenem/Sodium Chloride (Meropenem 1g/Ns 100ml Ivpb) 1 gm in 100 mls @ 100 mls/hr IVPB Q12 [place] PRN Reason: Protocol Last Admin: 08/17/17 11:43 Dose: 100 mls/hr Losartan Potassium (Cozaar) 50 mg PO DAILY [facility] Last Admin: 08/17/17 10:27 Dose: 50 mg Memantine (Namenda) 5 mg PO BID [facility] Last Admin: 08/17/17 10:27 Dose: 5 mg Multivitamins/Minerals (Therapeutic-M Tab) 1 tab PO 0800 [facility] Last Admin: 08/17/17 10:29 Dose: 1 tab Ondansetron HCl (Zofran Inj) 4 mg IVP ONCE PRN PRN Reason: Nausea/Vomiting Pantoprazole Sodium (Protonix Inj) 40 mg IVP DAILY [facility] Last Admin: 08/17/17 10:28 Dose: 40 mg Zinc Sulfate (Zinc Sulfate 220 Mg Cap) 220 mg PO DAILY [facility] Last Admin: 08/17/17 10:28 Dose: 220 mg - Labs Labs: 08/17/17 06:20 08/17/17 06:20 PT 14.0 SECONDS (9.4-12.5) H 08/16/17 10:00 INR 1.21 (0.93-1.08) H 08/16/17 10:00 APTT 42.8 Seconds (25.1-36.5) H 08/07/17 09:30 Attending/Attestation - Attestation I have personally seen and examined this patient.: Yes I have fully participated in the care of the patient.: Yes I have reviewed all pertinent clinical information, including history, physical exam and plan: Yes Notes (Text): 08/17/17 11:57 87 year old female with h/o PD, TIA, HTN, HLD, Demenita, bed ridden a/w failure to thrive s/p PEG. 1. Failure to thrive 2. S/P PEG 3. Constipation Plan: -bumper loosened to 3 cm -tolerating tube feeds -no signs of complications -recommend bowel regimen for constipation considering impaction on admission -will sign off
--- NOTE | 2017-08-17 10:12 | RAD ---
HISTORY: PICC placement COMPARISON: 08/12/2017 FINDINGS: LUNGS: No active pulmonary disease. PLEURA: No significant pleural effusion identified, no pneumothorax apparent. CARDIOVASCULAR: Normal. OSSEOUS STRUCTURES: No significant abnormalities. VISUALIZED UPPER ABDOMEN: Normal. OTHER FINDINGS: None. IMPRESSION: The right-sided PICC line is in satisfactory position with the tip at the caval atrial junction
[2017-08-17] MEDS: Carbidopa/Levodopa 50/200 CR PO SCH (10:27)
[2017-08-17] MEDS: Multivitamin With Minerals Tab PO SCH (10:29)
[2017-08-17] MEDS: Meropenem 1g/NS 100mL IVPB 1 GM/100 ML PIGGYBACK IVPB SCH (11:43)
[2017-08-17] MEDS: Collagenase 250 Units/gm Ointment(30 gm) TOP SCH (11:43)
[2017-08-17] MEDS ORDERED: POLYETHYLENE GLYCOL 3350 17 GM/Dose PACKET PO SCH (12:19)
--- NOTE | 2017-08-17 12:41 | CP.PCM.PN ---
Subjective - Date & Time of Evaluation Date of Evaluation: 08/16/17 Time of Evaluation: 11:35 - Subjective Subjective: Comfortable, soft stools, no fevers. Objective - Vital Signs/Intake and Output Vital Signs (last 24 hours): Temp Pulse Resp BP Pulse Ox 98.1 F 82 20 116/56 L 100 08/16/17 08:10 08/16/17 08:10 08/16/17 08:10 08/16/17 08:10 08/16/17 08:10 Intake and Output: 08/16/17 08/16/17 06:59 18:59 Intake Total 0 Output Total 950 Balance -950 - Medications Medications: Current Medications Acetaminophen (Tylenol 650mg/20.3ml Solution Ud) 650 mg NG Q6H PRN PRN Reason: Fever >100.4 F Last Admin: 08/12/17 01:38 Dose: 650 mg Albuterol Sulfate (Albuterol 0.083% Inhal Kerri (2.5 Mg/3 Ml) Ud) 2.5 mg IH Q2H PRN PRN Reason: Shortness of Breath Last Admin: 08/12/17 14:05 Dose: 2.5 mg Aspirin (Ecotrin) 81 mg PO DAILY [facility] Last Admin: 08/15/17 10:23 Dose: Not Given Atorvastatin Calcium (Lipitor) 10 mg PO DIN [facility] Last Admin: 08/15/17 17:46 Dose: Not Given Carbidopa/Levodopa (Sinemet Cr) 1 tab PO DAILY [facility] Last Admin: 08/15/17 10:24 Dose: Not Given Collagenase (Santyl) 0 gm TOP DAILY [facility] Last Admin: 08/15/17 10:47 Dose: Not Given Heparin Sodium (Porcine) (Heparin) 5,000 units SC Q12 ELLE PRN Reason: Protocol Last Admin: 08/15/17 22:53 Dose: 5,000 units Meropenem/Sodium Chloride (Meropenem 1g/Ns 100ml Ivpb) 1 gm in 100 mls @ 100 mls/hr IVPB Q12 ELLE PRN Reason: Protocol Last Admin: 08/15/17 22:53 Dose: 100 mls/hr Potassium Phosphate 10 mmole/ (Dextrose/Sodium Chloride) 1,003.3333 mls @ 75 mls/hr IV .[id number] [facility] Last Admin: 08/15/17 19:37 Dose: 75 mls/hr Losartan Potassium (Cozaar) 50 mg PO DAILY [facility] Memantine (Namenda) 5 mg PO BID [facility] Last Admin: 08/15/17 21:12 Dose: Not Given Multivitamins/Minerals (Therapeutic-M Tab) 1 tab PO 0800 [facility] Last Admin: 08/16/17 08:57 Dose: Not Given Ondansetron HCl (Zofran Inj) 4 mg IVP ONCE PRN PRN Reason: Nausea/Vomiting Pantoprazole Sodium (Protonix Inj) 40 mg IVP DAILY [facility] Last Admin: 08/15/17 10:46 Dose: 40 mg Zinc Sulfate (Zinc Sulfate 220 Mg Cap) 220 mg PO DAILY [facility] Last Admin: 08/15/17 10:24 Dose: Not Given - Labs Labs: 08/16/17 08:10 08/15/17 13:30 PT 16.3 SECONDS (9.4-12.5) H 08/07/17 09:30 INR 1.41 (0.93-1.08) H 08/07/17 09:30 APTT 42.8 Seconds (25.1-36.5) H 08/07/17 09:30 - Constitutional Appears: Chronically Ill, Other (lethargic) - Head Exam Head Exam: NORMAL INSPECTION - Neck Exam Neck Exam: absent: Meningismus - Respiratory Exam Respiratory Exam: Decreased Breath Sounds - Cardiovascular Exam Cardiovascular Exam: +S1, +S2 - GI/Abdominal Exam GI & Abdominal Exam: Soft. absent: Tenderness Assessment and Plan - Assessment and Plan (Free Text) Plan: Assessment Systemic Inflammatory response Syndrome, consider severe sepsis with acute renal failure due to severe infection of sacral decubitus ulcer, R/O osteomyelitis, growing E. coli, S/P debridement POD #1 R/O recurrent aspiration diarrhea, probably antibiotic associated Parkinson's disease history of TIA HTN dyslipidemia decubitus ulcer dementia history of eyelid surgery Plan continue Merrem day 10 - follow up results of debridement - should get 4-6 weeks of antibiotics with weekly ESR, CRP, CBC, CMP while on antibiotics stool for C. diff. negative overall prognosis is poor - should consider hospice
--- NOTE | 2017-08-17 15:07 | CP.PCM.DIS ---
<Andrey Leiva - Last Filed: 08/17/17 15:59> Provider - Provider Date of Admission: 08/07/17 10:53 Attending physician: Aldair Zuniga MD Primary care physician: Codie Desouza MD Consults: Palliative: [place] Surgery: Dr. Guzman Infectious Disease: Dr. Casas Nephrology: Dr. Del Rio Time Spent in preparation of Discharge (in minutes): 50 Diagnosis - Discharge Diagnosis (1) Sacral decubitus ulcer, stage IV Status: Acute (2) Osteomyelitis of sacrum Status: Suspected Priority: High (3) Perirectal abscess Status: Acute Priority: High (4) Gluteal abscess Status: Acute Priority: High (5) Altered mental status Status: Acute Priority: High (6) Sepsis Status: Acute Priority: High (7) Dementia Status: Chronic Priority: Medium (8) Hyperlipidemia Status: Chronic Priority: Medium (9) Hypertension Status: Chronic Priority: Medium (10) Parkinson disease Status: Chronic Priority: Medium Hospital Course - Lab Results Lab Results: Micro Results 08/11/17 18:08 Blood Blood Culture - Final NO GROWTH AFTER 5 DAYS 08/11/17 18:08 Blood Gram Stain - Final TEST NOT PERFORMED 08/11/17 18:08 Blood Blood Culture - Final NO GROWTH AFTER 5 DAYS 08/11/17 18:08 Blood Gram Stain - Final TEST NOT PERFORMED 08/13/17 22:00 Stool C. difficile Antigen & Toxin A,B (M - Final 08/11/17 18:10 Urine Urine Culture - Final Yeast Species 08/09/17 17:09 Sacral Gram Stain - Final 08/09/17 17:09 Sacral Anaerobic Culture - Final NO ANAEROBES ISOLATED. 08/09/17 17:09 Sacral Wound Culture - Final Escherichia Coli 08/12/17 07:00 Stool C. difficile Antigen & Toxin A,B (M - Final 08/07/17 11:00 Decubitus - First Gram Stain - Final 08/07/17 11:00 Decubitus - First Wound Culture - Final Escherichia Coli Enterococcus Faecalis 08/07/17 11:00 Urine Urine Culture - Final Escherichia Coli Most Recent Lab Values WBC 13.4 10^3/ul (4.5-11.0) H 08/17/17 06:20 RBC 2.86 10^6/uL (3.5-6.1) L 08/17/17 06:20 Hgb 7.9 g/dL (12.0-16.0) L 08/17/17 06:20 Hct 24.6 % (36.0-48.0) L 08/17/17 06:20 MCV 86.0 fl (80.0-105.0) 08/17/17 06:20 MCH 27.6 pg (25.0-35.0) 08/17/17 06:20 MCHC 32.1 g/dl (31.0-37.0) 08/17/17 06:20 RDW 14.4 % (11.5-14.5) 08/17/17 06:20 Plt Count 555 10^3/uL (120.0-450.0) H 08/17/17 06:20 MPV 8.6 fl (7.0-11.0) 08/17/17 06:20 Gran % 78.6 % (50.0-68.0) H 08/17/17 06:20 Lymph % (Auto) 15.9 % (22.0-35.0) L 08/17/17 06:20 [place] % (Auto) 4.3 % (1.0-6.0) 08/17/17 06:20 Eos % (Auto) 1.1 % (1.5-5.0) L 08/17/17 06:20 Baso % (Auto) 0.1 % (0.0-3.0) 08/17/17 06:20 Gran # 10.55 (1.4-6.5) H 08/17/17 06:20 Lymph # (Auto) 2.1 (1.2-3.4) 08/17/17 06:20 [place] # (Auto) 0.6 (0.1-0.6) 08/17/17 06:20 Eos # (Auto) 0.2 (0.0-0.7) 08/17/17 06:20 Baso # (Auto) 0.01 K/mm3 (0.0-2.0) 08/17/17 06:20 Neutrophils % (Manual) 92 % (50.0-70.0) H 08/07/17 09:30 Band Neutrophils % 3 % (0-2) H 08/07/17 09:30 Lymphocytes % (Manual) 4 % (22.0-35.0) L 08/07/17 09:30 Monocytes % (Manual) 1 % (1.0-6.0) 08/07/17 09:30 Platelet Evaluation Normal (NORMAL) 08/07/17 09:30 Anisocytosis (manual) Slight 08/07/17 09:30 ESR 124 mm/hr (0.0-20.0) H 08/07/17 09:30 PT 14.0 SECONDS (9.4-12.5) H 08/16/17 10:00 INR 1.21 (0.93-1.08) H 08/16/17 10:00 APTT 42.8 Seconds (25.1-36.5) H 08/07/17 09:30 pCO2 32 mm/Hg (35-45) L 08/12/17 17:30 pO2 127.0 mm/Hg (80-100) H 08/12/17 17:30 HCO3 22.2 mmol/L (21-28) 08/12/17 17:30 ABG pH 7.45 (7.35-7.45) 08/12/17 17:30 ABG Total CO2 23.2 mmol.L (22-28) 08/12/17 17:30 ABG O2 Saturation 98.7 % (95-98) H 08/12/17 17:30 ABG O2 Content 13.9 ML/dl (15-23) L 08/12/17 17:30 ABG Base Excess -1.3 mmol/L (-2.0-3.0) 08/12/17 17:30 ABG Hemoglobin 10.1 g/dL (11.7-17.4) L 08/12/17 17:30 ABG Carboxyhemoglobin 1.0 % (0.5-1.5) 08/12/17 17:30 POC ABG HHb (Measured) 1.3 % (0-5) 08/12/17 17:30 ABG Methemoglobin 1.2 % (0.0-3.0) 08/12/17 17:30 ABG O2 Capacity 14.1 mL/dl (16-24) L 08/12/17 17:30 VBG pH 7.39 (7.32-7.43) 08/07/17 12:45 VBG pCO2 47.0 (40-60) 08/07/17 12:45 VBG HCO3 28.5 mmol/l (21-28) H 08/07/17 12:45 VBG Total CO2 29.9 mmol.L (22-28) H 08/07/17 12:45 VBG O2 Sat (Calc) 94.8 % (40-65) H 08/07/17 12:45 VBG Base Excess 2.8 mmol/L (0.0-2.0) H 08/07/17 12:45 VBG Potassium 3.6 mmol/L (3.6-5.2) 08/07/17 12:45 Hgb O2 Saturation 96.5 % (95.0-98.0) 08/12/17 17:30 Sodium 153.0 mmol/L (132-148) H 08/07/17 12:45 Chloride 118.0 mmol/L (98-107) H 08/07/17 12:45 Glucose 184 mg/dl (65-105) H 08/07/17 12:45 Lactate 3.2 mmol/L (0.7-2.1) H 08/07/17 12:45 FiO2 32.0 % 08/12/17 17:30 Sodium 135 mmol/L (132-148) 08/17/17 06:20 Potassium 3.8 mmol/L (3.6-5.0) 08/17/17 06:20 Chloride 100 mmol/L (98-107) 08/17/17 06:20 Carbon Dioxide 31 mmol/L (21-33) 08/17/17 06:20 Anion Gap 8 (10-20) L 08/17/17 06:20 BUN 8 mg/dL (7-21) 08/17/17 06:20 Creatinine 0.6 mg/dl (0.7-1.2) L 08/17/17 06:20 Est GFR ( Amer) > 60 08/17/17 06:20 Est GFR (Non-Af Amer) > 60 08/17/17 06:20 POC Glucose (mg/dL) 162 mg/dL (65-110) H 08/10/17 20:58 Random Glucose 121 mg/dL (70-110) H 08/17/17 06:20 Serum Osmolality 339 mosm/kg (272-300) H 08/08/17 12:00 Lactic Acid 1.4 mmol/L (0.7-2.1) 08/12/17 17:50 Calcium 7.4 mg/dL (8.4-10.5) L 08/17/17 06:20 Phosphorus 3.1 mg/dL (2.5-4.5) 08/17/17 06:20 Magnesium 1.6 mg/dL (1.7-2.2) L 08/17/17 06:20 Total Bilirubin 0.2 mg/dL (0.2-1.3) 08/17/17 06:20 AST 69 U/L (14-36) H D 08/17/17 06:20 ALT 61 U/L (7-56) H 08/17/17 06:20 Alkaline Phosphatase 92 U/L (38-126) 08/17/17 06:20 Lactate Dehydrogenase 817 U/L (333-699) H 08/07/17 09:30 Total Creatine Kinase 350 U/L (35-230) H 08/07/17 09:30 CK-MB (CK-2) 1.9 ng/mL (0.0-3.6) 08/07/17 09:30 CK-MB (CK-2) % Cancelled 08/07/17 09:30 Troponin I < 0.01 ng/mL 08/07/17 09:30 Total Protein 5.0 g/dL (5.8-8.3) L 08/17/17 06:20 Albumin 1.9 g/dL (3.0-4.8) L 08/17/17 06:20 Globulin 3.2 gm/dL 08/17/17 06:20 Albumin/Globulin Ratio 0.6 (1.1-1.8) L 08/17/17 06:20 Ceruloplasmin 25 mg/dL (18-53) 08/16/17 08:10 Procalcitonin 0.69 NG/ML (0.19-0.49) H 08/11/17 18:08 TSH 3rd Generation 2.86 mIU/mL (0.46-4.68) 08/07/17 13:00 Venous Blood Potassium 3.6 mmol/L (3.6-5.2) 08/07/17 12:45 Urine Color Yellow (YELLOW) 08/11/17 18:10 Urine Appearance Sl cloudy (CLEAR) 08/11/17 18:10 Urine pH 5.5 (4.7-8.0) 08/11/17 18:10 Ur Specific [place] 1.015 (1.005-1.035) 08/11/17 18:10 Urine Protein 30 mg/dL (<30 mg/dL) H 08/11/17 18:10 Urine Glucose (UA) 250 mg/dL (NEGATIVE) H 08/11/17 18:10 Urine Ketones Negative mg/dL (NEGATIVE) 08/11/17 18:10 Urine Blood Small (NEGATIVE) H 08/11/17 18:10 Urine Nitrate Negative (NEGATIVE) 08/11/17 18:10 Urine Bilirubin Negative (NEGATIVE) 08/11/17 18:10 Urine Urobilinogen 0.2 E.U./dL (<1 E.U./dL) 08/11/17 18:10 Ur Leukocyte Esterase Negative Yoselyn/uL (NEGATIVE) 08/11/17 18:10 Urine RBC 0 - 2 /hpf (0-2) 08/11/17 18:10 Urine WBC 2 - 5 /hpf (0-6) 08/11/17 18:10 Ur Epithelial Cells 1 - 3 /hpf (0-5) 08/11/17 18:10 Uric Acid Crystals Occ /hpf 08/11/17 18:10 Amorphous Sediment Few 08/07/17 11:00 Urine Bacteria Many (NEG) 08/11/17 18:10 Coarse Granular Casts Trace /hpf (0-2) H 08/07/17 11:00 Urine Other Uyeast 08/11/17 18:10 Urine Osmolality 851 mosm/kg (300-1000) 08/09/17 12:30 Ur Random Creatinine 85 mg/dL 08/09/17 12:30 Ur Random Sodium < 5 meq/L 08/09/17 12:30 IgG 1701.0 mg/dL (700.0-1600.0) H 08/16/17 08:10 Anti-Mitochondrial Ab Negative (Negative) 08/16/17 08:10 Hepatitis A IgM Ab Negative (NEGATIVE) 08/16/17 08:10 Hep Bs Antigen Negative (NEGATIVE) 08/16/17 08:10 Hep B Core IgM Ab Negative (NEGATIVE) 08/16/17 08:10 Hepatitis C Antibody Negative (NEGATIVE) 08/16/17 08:10 Influenza Typ A,B (EIA) Negative for flu a/b (NEGATIVE) 08/10/17 07:30 - Hospital Course Hospital Course: Initial History of Present Illness on 08/07/17: "This is an 87yo female with past medical history of Parkinson's, HTN, HLD, TIA who came to ED for AMS x 1 day. As per family, patient has been having subjective fevers and sweats for 1 week. The patient has noted to have sacral decubitus ulcer. She saw her PMD, Dr. Desouza who put who on Cefuroxime 500mg BID and has been on it for 1 week for her ulcer. Since then, the patient has not been feeling well. She has been lethargic with poor PO intake. As per family , who is at bedside, said her baseline mentation is A&O x 1, but has been lethargic and sleeping all day. Patient is resting in bed and arousable and following commands, but not answering to questions. DEBBI could not be obtained." Hospital Course: Patient admitted for altered mental status due to sacral wound ulcer. Patient taken to the operating room for debridement on 08/09/17 of stage 4 sacral decubitus ulcer and left gluteal/perirectal abscess. There was clinical suspicion of osteomyelitis on the sacrum seen during the debridement per surgery. Pathology report from debridement on 08/09/17 reveals ulceration, marked acute inflammation, gangrenous necrosis and granulation tissue formation. Wound vac was placed and changed every 3 days. Patient was started on IV Merrem which continued for discharge to complete 6 week course. Sacral wound grew E.coli and E. Faecalis. Urine cultures grew E. coli. Patient underwent a second debridement on 08/15/17. Patient received PEG tube placement on 08/16/17, and a PICC line was placed on 08/17/17. Patient discharged to [facility] and will follow up with Dr. Desouza thereafter. This is a summary of the hospital course. For more information, refer to the medical records. Discharge Exam - Head Exam Head Exam: ATRAUMATIC, NORMOCEPHALIC - Eye Exam Eye Exam: Normal appearance - ENT Exam ENT Exam: Mucous Membranes Moist - Respiratory Exam Respiratory Exam: Clear to PA & Lateral, NORMAL BREATHING PATTERN. absent: Rales, Rhonchi, Wheezes - Cardiovascular Exam Cardiovascular Exam: REGULAR RHYTHM, +S1, +S2 - GI/Abdominal Exam GI & Abdominal Exam: Normal Bowel Sounds, Soft. absent: Distended, Guarding, Tenderness Additional comments: PEG tube in place on right side of the abdomen with no overt signs of infection at the site of insertion - Exam Additional comments: Farrar in place draining light yellow urine - Extremities Exam Extremities exam: pedal pulses present Additional comments: Right arm PICC line with no overt signs of infection - Back Exam Additional comments: Wound vac in place actively draining over region of sacral ulcer - Neurological Exam Additional comments: Awake at times but overall lethargic - Psychiatric Exam Additional comments: Lethargic - Skin Skin Exam: Dry, Warm Discharge Plan - Discharge Medications Prescriptions: Meropenem 1g/NS 100mL IVPB 1 gm IV Q12H 32 Days #64 piggyback - Follow Up Plan Condition: STABLE Disposition: TRANSF TO SNF Instructions: Pressure Sores, Sepsis in Adults, Altered Mental Status (DC), Flu Vaccine, Wound Infection, Negative Pressure Wound Therapy Additional Instructions: 1. Continue Merrem for to complete full 6 week course. 2. Weekly ESR, CRP, CBC, CMP while on antibiotics. 3. The wound vac must be continued on continuous 125mmHg suction and changed every three days. The wound has three areas of foam that must be replaced during changes--the central wound over the sacrum with an extension laterally into the left buttock and inferiorly along the left gluteal fold 4. Take all medications as directed. 5. Follow up with PMD Dr. Desouza. 6. Continue peg tube feedings to 30 ml/hr with 200 cc flush q6h, goal is to advance to 45 ml/hr as tolerated. Referrals: Codie Chowdary MD [Primary Care Provider] - <Aldair Zuniga - Last Filed: 08/18/17 16:44> Provider - Provider Date of Admission: 08/07/17 10:53 Attending physician: Aldair Zuniga MD Primary care physician: Codie Desouza MD Hospital Course - Lab Results Lab Results: Micro Results 08/11/17 18:08 Blood Blood Culture - Final NO GROWTH AFTER 5 DAYS 08/11/17 18:08 Blood Gram Stain - Final TEST NOT PERFORMED 08/11/17 18:08 Blood Blood Culture - Final NO GROWTH AFTER 5 DAYS 08/11/17 18:08 Blood Gram Stain - Final TEST NOT PERFORMED 08/13/17 22:00 Stool C. difficile Antigen & Toxin A,B (M - Final 08/11/17 18:10 Urine Urine Culture - Final Yeast Species 08/09/17 17:09 Sacral Gram Stain - Final 08/09/17 17:09 Sacral Anaerobic Culture - Final NO ANAEROBES ISOLATED. 08/09/17 17:09 Sacral Wound Culture - Final Escherichia Coli 08/12/17 07:00 Stool C. difficile Antigen & Toxin A,B (M - Final 08/07/17 11:00 Decubitus - First Gram Stain - Final 08/07/17 11:00 Decubitus - First Wound Culture - Final Escherichia Coli Enterococcus Faecalis 08/07/17 11:00 Urine Urine Culture - Final Escherichia Coli Most Recent Lab Values WBC 13.4 10^3/ul (4.5-11.0) H 08/17/17 06:20 RBC 2.86 10^6/uL (3.5-6.1) L 08/17/17 06:20 Hgb 7.9 g/dL (12.0-16.0) L 08/17/17 06:20 Hct 24.6 % (36.0-48.0) L 08/17/17 06:20 MCV 86.0 fl (80.0-105.0) 08/17/17 06:20 MCH 27.6 pg (25.0-35.0) 08/17/17 06:20 MCHC 32.1 g/dl (31.0-37.0) 08/17/17 06:20 RDW 14.4 % (11.5-14.5) 08/17/17 06:20 Plt Count 555 10^3/uL (120.0-450.0) H 08/17/17 06:20 MPV 8.6 fl (7.0-11.0) 08/17/17 06:20 Gran % 78.6 % (50.0-68.0) H 08/17/17 06:20 Lymph % (Auto) 15.9 % (22.0-35.0) L 08/17/17 06:20 [place] % (Auto) 4.3 % (1.0-6.0) 08/17/17 06:20 Eos % (Auto) 1.1 % (1.5-5.0) L 08/17/17 06:20 Baso % (Auto) 0.1 % (0.0-3.0) 08/17/17 06:20 Gran # 10.55 (1.4-6.5) H 08/17/17 06:20 Lymph # (Auto) 2.1 (1.2-3.4) 08/17/17 06:20 [place] # (Auto) 0.6 (0.1-0.6) 08/17/17 06:20 Eos # (Auto) 0.2 (0.0-0.7) 08/17/17 06:20 Baso # (Auto) 0.01 K/mm3 (0.0-2.0) 08/17/17 06:20 Neutrophils % (Manual) 92 % (50.0-70.0) H 08/07/17 09:30 Band Neutrophils % 3 % (0-2) H 08/07/17 09:30 Lymphocytes % (Manual) 4 % (22.0-35.0) L 08/07/17 09:30 Monocytes % (Manual) 1 % (1.0-6.0) 08/07/17 09:30 Platelet Evaluation Normal (NORMAL) 08/07/17 09:30 Anisocytosis (manual) Slight 08/07/17 09:30 ESR 124 mm/hr (0.0-20.0) H 08/07/17 09:30 PT 14.0 SECONDS (9.4-12.5) H 08/16/17 10:00 INR 1.21 (0.93-1.08) H 08/16/17 10:00 APTT 42.8 Seconds (25.1-36.5) H 08/07/17 09:30 pCO2 32 mm/Hg (35-45) L 08/12/17 17:30 pO2 127.0 mm/Hg (80-100) H 08/12/17 17:30 HCO3 22.2 mmol/L (21-28) 08/12/17 17:30 ABG pH 7.45 (7.35-7.45) 08/12/17 17:30 ABG Total CO2 23.2 mmol.L (22-28) 08/12/17 17:30 ABG O2 Saturation 98.7 % (95-98) H 08/12/17 17:30 ABG O2 Content 13.9 ML/dl (15-23) L 08/12/17 17:30 ABG Base Excess -1.3 mmol/L (-2.0-3.0) 08/12/17 17:30 ABG Hemoglobin 10.1 g/dL (11.7-17.4) L 08/12/17 17:30 ABG Carboxyhemoglobin 1.0 % (0.5-1.5) 08/12/17 17:30 POC ABG HHb (Measured) 1.3 % (0-5) 08/12/17 17:30 ABG Methemoglobin 1.2 % (0.0-3.0) 08/12/17 17:30 ABG O2 Capacity 14.1 mL/dl (16-24) L 08/12/17 17:30 VBG pH 7.39 (7.32-7.43) 08/07/17 12:45 VBG pCO2 47.0 (40-60) 08/07/17 12:45 VBG HCO3 28.5 mmol/l (21-28) H 08/07/17 12:45 VBG Total CO2 29.9 mmol.L (22-28) H 08/07/17 12:45 VBG O2 Sat (Calc) 94.8 % (40-65) H 08/07/17 12:45 VBG Base Excess 2.8 mmol/L (0.0-2.0) H 08/07/17 12:45 VBG Potassium 3.6 mmol/L (3.6-5.2) 08/07/17 12:45 Hgb O2 Saturation 96.5 % (95.0-98.0) 08/12/17 17:30 Sodium 153.0 mmol/L (132-148) H 08/07/17 12:45 Chloride 118.0 mmol/L (98-107) H 08/07/17 12:45 Glucose 184 mg/dl (65-105) H 08/07/17 12:45 Lactate 3.2 mmol/L (0.7-2.1) H 08/07/17 12:45 FiO2 32.0 % 08/12/17 17:30 Sodium 135 mmol/L (132-148) 08/17/17 06:20 Potassium 3.8 mmol/L (3.6-5.0) 08/17/17 06:20 Chloride 100 mmol/L (98-107) 08/17/17 06:20 Carbon Dioxide 31 mmol/L (21-33) 08/17/17 06:20 Anion Gap 8 (10-20) L 08/17/17 06:20 BUN 8 mg/dL (7-21) 08/17/17 06:20 Creatinine 0.6 mg/dl (0.7-1.2) L 08/17/17 06:20 Est GFR ( Amer) > 60 08/17/17 06:20 Est GFR (Non-Af Amer) > 60 08/17/17 06:20 POC Glucose (mg/dL) 162 mg/dL (65-110) H 08/10/17 20:58 Random Glucose 121 mg/dL (70-110) H 08/17/17 06:20 Serum Osmolality 339 mosm/kg (272-300) H 08/08/17 12:00 Lactic Acid 1.4 mmol/L (0.7-2.1) 08/12/17 17:50 Calcium 7.4 mg/dL (8.4-10.5) L 08/17/17 06:20 Phosphorus 3.1 mg/dL (2.5-4.5) 08/17/17 06:20 Magnesium 1.6 mg/dL (1.7-2.2) L 08/17/17 06:20 Total Bilirubin 0.2 mg/dL (0.2-1.3) 08/17/17 06:20 AST 69 U/L (14-36) H D 08/17/17 06:20 ALT 61 U/L (7-56) H 08/17/17 06:20 Alkaline Phosphatase 92 U/L (38-126) 08/17/17 06:20 Lactate Dehydrogenase 817 U/L (333-699) H 08/07/17 09:30 Total Creatine Kinase 350 U/L (35-230) H 08/07/17 09:30 CK-MB (CK-2) 1.9 ng/mL (0.0-3.6) 08/07/17 09:30 CK-MB (CK-2) % Cancelled 08/07/17 09:30 Troponin I < 0.01 ng/mL 08/07/17 09:30 Total Protein 5.0 g/dL (5.8-8.3) L 08/17/17 06:20 Albumin 1.9 g/dL (3.0-4.8) L 08/17/17 06:20 Globulin 3.2 gm/dL 08/17/17 06:20 Albumin/Globulin Ratio 0.6 (1.1-1.8) L 08/17/17 06:20 Ceruloplasmin 25 mg/dL (18-53) 08/16/17 08:10 Procalcitonin 0.69 NG/ML (0.19-0.49) H 08/11/17 18:08 TSH 3rd Generation 2.86 mIU/mL (0.46-4.68) 08/07/17 13:00 Venous Blood Potassium 3.6 mmol/L (3.6-5.2) 08/07/17 12:45 Urine Color Yellow (YELLOW) 08/11/17 18:10 Urine Appearance Sl cloudy (CLEAR) 08/11/17 18:10 Urine pH 5.5 (4.7-8.0) 08/11/17 18:10 Ur Specific [place] 1.015 (1.005-1.035) 08/11/17 18:10 Urine Protein 30 mg/dL (<30 mg/dL) H 08/11/17 18:10 Urine Glucose (UA) 250 mg/dL (NEGATIVE) H 08/11/17 18:10 Urine Ketones Negative mg/dL (NEGATIVE) 08/11/17 18:10 Urine Blood Small (NEGATIVE) H 08/11/17 18:10 Urine Nitrate Negative (NEGATIVE) 08/11/17 18:10 Urine Bilirubin Negative (NEGATIVE) 08/11/17 18:10 Urine Urobilinogen 0.2 E.U./dL (<1 E.U./dL) 08/11/17 18:10 Ur Leukocyte Esterase Negative Yoselyn/uL (NEGATIVE) 08/11/17 18:10 Urine RBC 0 - 2 /hpf (0-2) 08/11/17 18:10 Urine WBC 2 - 5 /hpf (0-6) 08/11/17 18:10 Ur Epithelial Cells 1 - 3 /hpf (0-5) 08/11/17 18:10 Uric Acid Crystals Occ /hpf 08/11/17 18:10 Amorphous Sediment Few 08/07/17 11:00 Urine Bacteria Many (NEG) 08/11/17 18:10 Coarse Granular Casts Trace /hpf (0-2) H 08/07/17 11:00 Urine Other Uyeast 08/11/17 18:10 Urine Osmolality 851 mosm/kg (300-1000) 08/09/17 12:30 Ur Random Creatinine 85 mg/dL 08/09/17 12:30 Ur Random Sodium < 5 meq/L 08/09/17 12:30 IgG 1701.0 mg/dL (700.0-1600.0) H 08/16/17 08:10 Anti-Mitochondrial Ab Negative (Negative) 08/16/17 08:10 Smooth Muscle Ab Titer 1:20 Titer (< 1:20) H 08/16/17 08:10 Anti-Smooth Muscle Ab Positive (Negative) H 08/16/17 08:10 Hepatitis A IgM Ab Negative (NEGATIVE) 08/16/17 08:10 Hep Bs Antigen Negative (NEGATIVE) 08/16/17 08:10 Hep B Core IgM Ab Negative (NEGATIVE) 08/16/17 08:10 Hepatitis C Antibody Negative (NEGATIVE) 08/16/17 08:10 Influenza Typ A,B (EIA) Negative for flu a/b (NEGATIVE) 08/10/17 07:30 Attending/Attestation - Attestation I have personally seen and examined this patient.: Yes I have fully participated in the care of the patient.: Yes I have reviewed all pertinent clinical information, including history, physical exam and plan: Yes Notes (Text): 08/18/17 16:43 attending note; Patient seen and examined with resident. Patient is a 87 year old female with history of Parkinson's, advanced dementia, hypertension, hyperlipidemia, TIA is admitted for altered mental status secondary to sepsis. Patient has sacral decubitus ulcer .status post debridement and wound VAC placement. s/p second debridement today. Wound VAC in place. Treated with IV meropenem. Clinical osteomyelitis of sacrum and preeti rectal and gluteal abscess. Patient will complete 6 weeks of IV anti-biotics. advanced dementia; not communicating well. failed swallow evaluation. Status post PEG tube placement. Continue feeding. Transfer to rehabilitation today. Upon discharge patient will follow up with Dr. Carter. Prognosis is poor. Case discussed with patient's son in detail.
--- NOTE | 2017-08-17 17:22 | CP.PCM.PN ---
Subjective - Date & Time of Evaluation Date of Evaluation: 08/17/17 Time of Evaluation: 06:20 - Subjective Subjective: Patient seen and examined this AM. Patient in no distress. Wound vac functioning with no leaks. Objective - Vital Signs/Intake and Output Vital Signs (last 24 hours): Temp Pulse Resp BP Pulse Ox 98.0 F 89 20 119/66 98 08/17/17 07:30 08/17/17 10:27 08/17/17 07:30 08/17/17 10:27 08/17/17 07:30 Intake and Output: 08/17/17 08/17/17 06:59 18:59 Intake Total 890 Output Total 550 Balance 340 - Medications Medications: Current Medications Acetaminophen (Tylenol 650mg/20.3ml Solution Ud) 650 mg NG Q6H PRN PRN Reason: Fever >100.4 F Last Admin: 08/12/17 01:38 Dose: 650 mg Albuterol Sulfate (Albuterol 0.083% Inhal Kerri (2.5 Mg/3 Ml) Ud) 2.5 mg IH Q2H PRN PRN Reason: Shortness of Breath Last Admin: 08/12/17 14:05 Dose: 2.5 mg Aspirin (Ecotrin) 81 mg PO DAILY [facility] Last Admin: 08/17/17 10:26 Dose: 81 mg Atorvastatin Calcium (Lipitor) 10 mg PO DIN [facility] Last Admin: 08/16/17 18:16 Dose: 10 mg Carbidopa/Levodopa (Sinemet Cr) 1 tab PO DAILY [facility] Last Admin: 08/17/17 10:27 Dose: 1 tab Collagenase (Santyl) 0 gm TOP DAILY [facility] Last Admin: 08/17/17 11:43 Dose: Not Given Heparin Sodium (Porcine) (Heparin) 5,000 units SC Q12 [facility] PRN Reason: Protocol Last Admin: 08/17/17 10:28 Dose: 5,000 units Meropenem/Sodium Chloride (Meropenem 1g/Ns 100ml Ivpb) 1 gm in 100 mls @ 100 mls/hr IVPB Q12 [facility] PRN Reason: Protocol Last Admin: 08/17/17 11:43 Dose: 100 mls/hr Losartan Potassium (Cozaar) 50 mg PO DAILY [facility] Last Admin: 08/17/17 10:27 Dose: 50 mg Memantine (Namenda) 5 mg PO BID [facility] Last Admin: 08/17/17 10:27 Dose: 5 mg Multivitamins/Minerals (Therapeutic-M Tab) 1 tab PO 0800 [facility] Last Admin: 08/17/17 10:29 Dose: 1 tab Ondansetron HCl (Zofran Inj) 4 mg IVP ONCE PRN PRN Reason: Nausea/Vomiting Pantoprazole Sodium (Protonix Inj) 40 mg IVP DAILY [facility] Last Admin: 08/17/17 10:28 Dose: 40 mg Polyethylene Glycol (Miralax) 17 gm PO DAILY [facility] Zinc Sulfate (Zinc Sulfate 220 Mg Cap) 220 mg PO DAILY [facility] Last Admin: 08/17/17 10:28 Dose: 220 mg - Labs Labs: 08/17/17 06:20 08/17/17 06:20 PT 14.0 SECONDS (9.4-12.5) H 08/16/17 10:00 INR 1.21 (0.93-1.08) H 08/16/17 10:00 APTT 42.8 Seconds (25.1-36.5) H 08/07/17 09:30 - Constitutional Appears: Non-toxic, No Acute Distress - Head Exam Head Exam: ATRAUMATIC, NORMOCEPHALIC - Eye Exam Eye Exam: Normal appearance - ENT Exam ENT Exam: Mucous Membranes Moist, Normal Oropharynx - Respiratory Exam Respiratory Exam: NORMAL BREATHING PATTERN. absent: Accessory Muscle Use, Respiratory Distress - Neurological Exam Neurological Exam: Altered - Psychiatric Exam Psychiatric exam: Flat Affect, Normal Mood Assessment and Plan - Assessment and Plan (Free Text) Assessment: 87F s/p 2 sacral wound debridement's and wound vac placement for sacral ducubitus ulcers with gluteal abscesses Plan: -Continue wound vac to 125mmHg continuous suction. -Continue antibiotics per ID -Management per primary -No further surgical debridement necessary this hospitalization. Patient is clear for D/C to LTAC from a surgical perspective -Once patient is discharged the wound vac must be continued on continuous 125mmHg suction and changed every three days. The wound has three areas of foam that must be replaced during changes--the central wound over the sacrum with an extension laterally into the left buttock and inferiorly along the left gluteal fold. -No indication for surgical follow up. Wound care to be performed by LTAC center Discussed with Dr. Megan Ortiz, PGY2
[2017-08-17 21:02] VITALS: BP 101/54; PULSE 85; RESP 16; TEMP 98.2
[2017-08-18] MEDS ORDERED: POLYETHYLENE GLYCOL 3350 17 GM/Dose PACKET PO SCH (10:00)
--- NOTE | 2017-08-18 15:07 | PN ---
DATE: 08/17/2017 SUBJECTIVE: The patient is seen lying in bed. She is awake, eyes are open, but she does not respond. She does not appear to be in any kind of distress. PHYSICAL EXAMINATION: VITAL SIGNS: Blood pressure 119/66, heart rate 89, respiratory rate 20, temperature 98. HEENT: Normocephalic, atraumatic. NECK: Supple, no JVD. LUNGS: Bilateral equal air entry, no rales. CARDIAC: S1 and S2, regular rate and rhythm, no murmur, no rub. ABDOMEN: Obese, distended, soft, nontender, bowel sounds present, positive PEG. EXTREMITIES: No lower extremity edema. INTAKE AND OUTPUT: 890/550. LABORATORY DATA: WBC 13, hemoglobin 7.9, hematocrit 25, platelets 555. Sodium 135, potassium 3.8, chloride 100, CO2 of 31, BUN 8, creatinine 0.6, glucose 121, calcium 7.4, albumin 1.9, corrected calcium is 8.8. MEDICATIONS: List reviewed. ASSESSMENT: 1. Resolved hyponatremia. 2. Status post severe sepsis. 3. Sacral osteomyelitis. 4. Severe malnutrition. 5. Non-insulin dependent diabetes mellitus. 6. Hypertension. 7. Dementia. PLAN: 1. Push free fluids via PEG. 2. Monitor euglycemia. 3. Increase protein intake. 4. No objection to discharge Sharonda Del Rio MD
== END 2017-08-17 21:56 | DRG 853 ==
LOC: ED 06:50 → ERH 10:53 → 3RSO 15:25 → 5RNO 08-15 17:47
PROVIDERS: ADMIT Hospitalist; ATTEND Internal Medicine
PROC: 0D9P0ZZ Drainage of Rectum, Open Approach (ICD-10-PCS; 2017-08-09)
PROC: 0J990ZZ Drainage of Buttock Subcutaneous Tissue and Fascia, Open Approach (ICD-10-PCS; 2017-08-09)
PROC: 0JB70ZZ Excision of Back Subcutaneous Tissue and Fascia, Open Approach (ICD-10-PCS; principal; 2017-08-09 14:15)
PROC: 0JB70ZZ Excision of Back Subcutaneous Tissue and Fascia, Open Approach (ICD-10-PCS; 2017-08-15)
PROC: 0K9N0ZZ Drainage of Right Hip Muscle, Open Approach (ICD-10-PCS; 2017-08-15)
PROC: 0DB68ZX Excision of Stomach, Via Natural or Artificial Opening Endoscopic, Diagnostic (ICD-10-PCS; 2017-08-16)
PROC: 0DH68UZ Insertion of Feeding Device into Stomach, Via Natural or Artificial Opening Endoscopic (ICD-10-PCS; 2017-08-16)
PROC: 02HV33Z Insertion of Infusion Device into Superior Vena Cava, Percutaneous Approach (ICD-10-PCS; 2017-08-17)
PROC: B548ZZA Ultrasonography of Superior Vena Cava, Guidance (ICD-10-PCS; 2017-08-17)
DX: A41.9 Sepsis, unspecified organism (principal); E43 Unspecified severe protein-calorie malnutrition; L89.150 Pressure ulcer of sacral region, unstageable; L89.154 Pressure ulcer of sacral region, stage 4; N17.9 Acute kidney failure, unspecified; E11.22 Type 2 diabetes mellitus with diabetic chronic kidney disease; L89.314 Pressure ulcer of right buttock, stage 4; G20 Parkinson's disease; E83.39 Other disorders of phosphorus metabolism; R13.10 Dysphagia, unspecified; E11.52 Type 2 diabetes mellitus with diabetic peripheral angiopathy with gangrene; E87.0 Hyperosmolality and hypernatremia; N39.0 Urinary tract infection, site not specified; E87.1 Hypo-osmolality and hyponatremia; K61.1 Rectal abscess; L02.31 Cutaneous abscess of buttock; M46.28 Osteomyelitis of vertebra, sacral and sacrococcygeal region; M60.009 Infective myositis, unspecified site; E86.0 Dehydration; F03.90 Unspecified dementia, unspecified severity, without behavioral disturbance, psychotic disturbance, mood disturbance, and anxiety; R65.20 Severe sepsis without septic shock; E78.5 Hyperlipidemia, unspecified; E87.6 Hypokalemia; I12.9 Hypertensive chronic kidney disease with stage 1 through stage 4 chronic kidney disease, or unspecified chronic kidney disease; K56.41 Fecal impaction; N18.9 Chronic kidney disease, unspecified; R62.7 Adult failure to thrive; Z79.82 Long term (current) use of aspirin; Z86.73 Personal history of transient ischemic attack (TIA), and cerebral infarction without residual deficits; Z87.440 Personal history of urinary (tract) infections; B95.2 Enterococcus as the cause of diseases classified elsewhere; B96.20 Unspecified Escherichia coli [E. coli] as the cause of diseases classified elsewhere; K44.9 Diaphragmatic hernia without obstruction or gangrene

== ENCOUNTER 2017-11-04 18:01 | Inpatient (IN) | payer MEDICARE, BC ==
--- NOTE | 2017-11-04 19:53 | ED PDOC ---
Arrival/HPI - General Historian: Patient <Emi Avina A - Last Filed: 11/04/17 22:44> <Hernán Ellington - Last Filed: 11/05/17 11:05> - General Chief Complaint: Fever Time Seen by Provider: 11/04/17 18:20 - History of Present Illness Narrative History of Present Illness (Text): 11/04/17 19:45 87yo female with PMhx of Parkinson's, hypertension , TIA who was bib EMS for complaint of fever and odorous diarrhea x 2days. The daughter by the bedside states patient developed left sided upper back abscess and fever overnight. States she was seen today by a visiting nurse who advised them to bring her to ED. States the diarrhea has been odorous for 2days now. Per the daughter, patient came back from a rehab center last week. Patient denies chest pain, abdominal pain, nausea, vomiting, headache, any other complaint. (Emi Avina A) Past Medical History - Provider Review Nursing Documentation Reviewed: Yes - Past History Past History: No Previous - Infectious Disease Hx of Infectious Diseases: None - Reproductive Menopause: Yes - Cardiac Hx Pacemaker: No - Pulmonary Hx Respiratory Disorders: No - Neurological Hx Neurological Disorder: Yes Hx Parkinson's Disease: Yes - HEENT Hx HEENT Disorder: Yes (eyeglasses) Other/Comment: eye sx fatty tissue removed from both eyelids - Renal Hx Renal Disorder: No - Endocrine/Metabolic Hx Endocrine Disorders: No - Hematological/Oncological Hx Cancer: No - Integumentary Hx Dermatological Disorder: No - Musculoskeletal/Rheumatological Hx Falls: No - Gastrointestinal Hx Diarrhea: Yes - Genitourinary/Gynecological Hx Genitourinary Disorders: No - Psychiatric Hx Psychophysiologic Disorder: No Hx Substance Use: No - Surgical History Hx Mastectomy: No - Anesthesia Hx Anesthesia Reactions: No Hx Malignant Hyperthermia: No <Emi Avina A - Last Filed: 11/04/17 22:44> Family/Social History - Physician Review Nursing Documentation Reviewed: Yes Family/Social History: Unknown Family HX Smoking Status: Never Smoked Hx Alcohol Use: No Hx Substance Use: No <Emi Avina A - Last Filed: 11/04/17 22:44> Allergies/Home Meds <Emi Avina A - Last Filed: 11/04/17 22:44> <Chandana,Hernán - Last Filed: 11/05/17 11:05> Allergies/Adverse Reactions: Allergies No Known Allergies Allergy (Verified 11/04/17 18:10) Home Medications: Home Meds Medication Instructions Recorded Confirmed Carbidopa/Levodopa 50/200 CR 50 mg PO DAILY 10/08/15 11/04/17 [Sinemet CR] Simvastatin 20 mg PO DAILY 10/08/15 11/04/17 Pantoprazole [Protonix EC Tab] 40 mg PO DAILY 08/07/17 11/04/17 Review of Systems - Physician Review All systems were reviewed & negative as marked: Yes - Review of Systems Constitutional: Fevers Eyes: Normal ENT: Normal Respiratory: Normal Cardiovascular: Normal Gastrointestinal: Diarrhea. absent: Abdominal Pain, Constipation, Nausea, Vomiting, Hematochezia, Hematemesis Genitourinary Female: Normal Musculoskeletal: Normal Skin: Abscess Neurological: Normal Endocrine: Normal Hemo/Lymphatic: Normal Psychiatric: Normal <Diru,Happiness A - Last Filed: 11/04/17 22:44> Physical Exam Vital Signs Reviewed: Yes Temperature: Febrile Blood Pressure: Normal Pulse: Tachycardic Respiratory Rate: Normal Appearance: Positive for: Well-Appearing, Non-Toxic, Comfortable Pain Distress: None Mental Status: Positive for: Alert and Oriented X 3 - Systems Exam Head: Present: Atraumatic, Normocephalic Pupils: Present: PERRL Extroacular Muscles: Present: EOMI Conjunctiva: Present: Normal Mouth: Present: Moist Mucous Membranes Neck: Present: Normal Range of Motion Respiratory/Chest: Present: Clear to Auscultation, Good Air Exchange. No: Respiratory Distress, Accessory Muscle Use Cardiovascular: Present: Regular Rate and Rhythm, Normal S1, S2. No: Murmurs Abdomen: Present: Normal Bowel Sounds, Feeding Tubes (No erythema. No discharge. No sign of infection). No: Tenderness, Distention, Peritoneal Signs , Rebound, Guarding, McBurney's Point Tender, Rovsing's Sign Present Back: Present: Normal Inspection Upper Extremity: Present: Normal Inspection. No: Cyanosis, Edema Lower Extremity: Present: Normal Inspection. No: Edema Neurological: Present: GCS=15, CN II-XII Intact, Speech Normal Skin: Present: Warm, Dry, Normal Color, Abscess (Approximately 2 x 2cm area of induration with overlyaing erytehma. Warmth to touch to left sided upper back). No: Rashes Psychiatric: Present: Alert, Oriented x 3, Normal Insight, Normal Concentration <FabriceEmi A - Last Filed: 11/04/17 22:44> Vital Signs Temp Pulse Resp BP Pulse Ox 11/04/17 23:47 91 H 18 122/59 L 99 11/04/17 22:30 99.9 F H 11/04/17 22:08 90 18 123/62 98 11/04/17 19:24 99 H 18 127/57 L 98 11/04/17 18:21 99.9 F H 107 H 18 129/58 L 99 Medical Decision Making <FabriceEmi A - Last Filed: 11/04/17 22:44> <Hernán Ellington - Last Filed: 11/05/17 11:05> ED Course and Treatment: 11/04/17 21:25 PT who present to ED for fever and diarrhea x 2days. Pt was had low temp on arrival and Tylenol was ordered. Leukocytosis was noted and potassium was repleted. She was hydrated in ED. Lactic was 2.1 and pt was tachy in ED with leukocytosis. Code sepsis was called. Rocephin and Flagyl was ordered for UTI/Cellulitis and possible C. diff. Culture was collected to r/o C. Diff. CXr NAD EKG NSR @100bpm PT will be admitted for IV abx. Case was DW Dr. Ruiz and pt was accepted to the service. (FabriceEmi A) - Lab Interpretations Lab Results: 11/04/17 19:00 11/04/17 19:00 Lab Results 11/04/17 20:35: Urine Color Yellow, Urine Appearance Cloudy, Urine pH 7.5, Ur Specific [place] 1.020, Urine Protein 100 H, Urine Glucose (UA) 500 H, Urine Ketones Negative, Urine Blood Large H, Urine Nitrate Positive H, Urine Bilirubin Negative, Urine Urobilinogen 0.2, Ur Leukocyte Esterase Large H, Urine RBC Tntc, Urine WBC Tntc, Ur Epithelial Cells 10 - 12, Urine Bacteria Many 11/04/17 19:00: Sodium 139, Chloride 99, Potassium 3.3 L, Carbon Dioxide 30, Anion Gap 13, BUN 17, Creatinine 0.5 L, Est GFR ( Amer) > 60, Est GFR ( Non-Af Amer) > 60, Random Glucose 158 H, Calcium 8.2 L, Phosphorus 2.1 L, Magnesium 1.8, Total Bilirubin 0.1 L, AST 37 H D, ALT 28, Alkaline Phosphatase 93, Troponin I < 0.01, Total Protein 7.0, Albumin 2.9 L, Globulin 4.1, Albumin/ Globulin Ratio 0.7 L 11/04/17 19:00: pO2 63 H, VBG pH 7.50 H, VBG pCO2 42.0, VBG HCO3 32.8 H, VBG Total CO2 34.1 H, VBG O2 Sat (Calc) 95.8 H, VBG Base Excess 8.7 H, VBG Potassium 3.3 L, Sodium 135.0, Chloride 101.0, Glucose 168 H, Lactate 2.1, FiO2 21.0, Venous Blood Potassium 3.3 L 11/04/17 19:00: PT 13.4 H, INR 1.17 H, APTT 33.5 11/04/17 19:00: WBC 16.3 H D, RBC 3.38 L, Hgb 9.2 L, Hct 28.5 L, MCV 84.3, MCH 27.2, MCHC 32.3, RDW 15.8 H, Plt Count 509 H, MPV 9.0, Gran % 79.1 H, Lymph % ( Auto) 13.7 L, [place] % (Auto) 6.2 H, Eos % (Auto) 0.9 L, Baso % (Auto) 0.1, Gran # 12.90 H, Lymph # (Auto) 2.2, [place] # (Auto) 1.0 H, Eos # (Auto) 0.2, Baso # ( Auto) 0.02 - RAD Interpretation Radiology Orders: 11/04/17 18:21 CHEST PORTABLE [RAD] Stat - Medication Orders Current Medication Orders: Aspirin (Ecotrin) 81 mg PO DAILY [facility] Carbidopa/Levodopa (Sinemet Cr) 1 tab PO DAILY [facility] Collagenase (Santyl) 0 gm TOP DAILY [facility] Piperacillin Sod/Tazobactam Sod (Zosyn 3.375 In Ns 100ml) 100 mls @ 200 mls/hr IVPB Q6 [facility] PRN Reason: Protocol Stop: 11/12/17 00:01 Last Admin: 11/05/17 08:24 Dose: 200 mls/hr eMAR Start Stop Document 11/05/17 08:24 MJ (Rec: 11/05/17 08:25 MJ [id number]) Intravenous Solution Start Date 11/05/17 Start Time 08:25 End Date 11/05/17 End time 08:55 Total Infusion Time 30 Metronidazole (Flagyl) 500 mg in 100 mls @ 100 mls/hr IVPB Q8 [facility] PRN Reason: Protocol Last Admin: 11/05/17 06:02 Dose: 100 mls/hr eMAR Start Stop Document 11/05/17 06:02 MJ (Rec: 11/05/17 06:02 MJ [id number]) Intravenous Solution Start Date 11/05/17 Start Time 06:02 End Date 11/05/17 End time 07:02 Total Infusion Time 60 Losartan Potassium (Cozaar) 50 mg PO DAILY [facility] Memantine (Namenda) 5 mg PO BID [facility] Multivitamins/Minerals (Therapeutic-M Tab) 1 tab PO 0800 [facility] Pantoprazole Sodium (Protonix Inj) 40 mg IVP DAILY [facility] Zinc Sulfate (Zinc Sulfate 220 Mg Cap) 220 mg PO DAILY [facility] Discontinued Medications Acetaminophen (Tylenol 650 Mg Supp) 650 mg RC STAT STA Stop: 11/04/17 21:18 Last Admin: 11/04/17 22:30 Dose: 650 mg MAR Pain/Vitals Document 11/04/17 22:30 AD (Rec: 11/04/17 22:30 AD [id number]) Vitals Temperature (97.6 F-99.6 F) 99.9 F Temperature Source Rectal Re-Assess: JOSEFINA Pain/Vitals Document 11/04/17 23:30 MJ (Rec: 11/05/17 05:23 MJ [id number]) Pain Reassessment Is This A Pain ReAssessment? Yes Sleep Is patient sleeping during reassessment? Yes Sodium Chloride (Sodium Chloride 0.9%) 1,000 mls @ 250 mls/hr IV .Q4H ONE Stop: 11/05/17 00:00 Last Admin: 11/04/17 20:42 Dose: 250 mls/hr eMAR Start Stop Document 11/04/17 20:42 AD (Rec: 11/04/17 20:43 AD [id number]) Intravenous Solution Start Date 11/04/17 Start Time 20:43 Metronidazole (Flagyl) 500 mg in 100 mls @ 100 mls/hr IVPB STAT STA PRN Reason: Protocol Stop: 11/04/17 21:54 Last Admin: 11/04/17 22:41 Dose: 100 mls/hr eMAR Start Stop Document 11/04/17 22:41 AD (Rec: 11/04/17 22:41 AD [id number]) Intravenous Solution Start Date 11/04/17 Start Time 22:41 Ceftriaxone Sodium (Rocephin 1 Gram Ivpb) 1 gm in 100 mls @ 200 mls/hr IVPB STAT STA PRN Reason: Protocol Stop: 11/04/17 21:24 Last Admin: 11/04/17 21:20 Dose: 200 mls/hr eMAR Start Stop Document 11/04/17 21:20 AD (Rec: 11/04/17 21:30 AD [id number]) Intravenous Solution Start Date 11/04/17 Start Time 21:30 Potassium Chloride (Potassium Chloride 20 Meq/100 Ml) 20 meq in 100 mls @ 50 mls/hr IVPB ONCE ONE Stop: 11/04/17 23:05 Last Admin: 11/04/17 22:41 Dose: 50 mls/hr eMAR Start Stop Document 11/04/17 22:41 AD (Rec: 11/04/17 22:41 AD [id number]) Intravenous Solution Start Date 11/04/17 Start Time 22:41 - PA / [employer] / Resident Statement / has examined the patient and agrees with the treatment plan. <Hernán Ellington - Last Filed: 11/05/17 11:05> Disposition/Present on Arrival - Present on Arrival Any Indicators Present on Arrival: No History of DVT/PE: No History of Uncontrolled Diabetes: No Urinary Catheter: No History of Decub. Ulcer: No History Surgical Site Infection Following: None - Disposition Have Diagnosis and Disposition been Completed?: Yes Disposition Time: 21:20 <Emi Avina - Last Filed: 11/04/17 22:44> <Hernán Ellington - Last Filed: 11/05/17 11:05> - Disposition Diagnosis: Urinary tract infection, Cellulitis, Diarrhea, Leukocytosis Disposition: HOSPITALIZED Patient Problems: Current Active Problems Problem Status Onset Cellulitis Acute Diarrhea Acute Leukocytosis Acute Urinary tract infection Acute Condition: FAIR
[2017-11-04] MEDS ORDERED: Sodium Chloride 0.9% 1,000 ML IV ONE (20:01)
[2017-11-04 20:17] LABS: BASO # 0.02 K/mm3 (0.0-2.0); BASO % 0.1 % (0.0-3.0); EOS # 0.2 (0.0-0.7); EOS % 0.9 % (1.5-5.0); GRAN # 12.9 (1.4-6.5); GRAN % 79.1 % (50.0-68.0); HEMOGLOBIN 9.2 g/dL (12.0-16.0); LYMPH # 2.2 (1.2-3.4); LYMPH % 13.7 % (22.0-35.0); MEAN CELL VOLUME 84.3 fl (80.0-105.0); MEAN CORPUSCULAR HEMOGLOBIN 27.2 pg (25.0-35.0); MEAN CORPUSCULAR HGB CONC 32.3 g/dl (31.0-37.0); MONO % 6.2 % (1.0-6.0); RBC 3.38 10^6/uL (3.5-6.1); RED CELL DISTRIBUTION WIDTH 15.8 % (11.5-14.5); WHITE BLOOD COUNT 16.3 10^3/ul (4.5-11.0)
[2017-11-04 20:22] LABS: VENOUS BLOOD GAS BASE EXCESS 8.7 mmol/L (0.0-2.0); VENOUS BLOOD GAS PO2 63 mm/Hg (30-55)
[2017-11-04 20:28] LABS: INR 1.17 (0.93-1.08); PARTIAL THROMBOPLASTIN TIME 33.5 Seconds (25.1-36.5); PROTHROMBIN TIME 13.4 SECONDS (9.4-12.5)
[2017-11-04 20:31] LABS: ALB/GLOB RATIO 0.7 (1.1-1.8); ALBUMIN 2.9 g/dL (3.0-4.8); ALT/SGPT 28 U/L (7-56); AST/SGOT 37 U/L (14-36); BLOOD UREA NITROGEN 17 mg/dL (7-21); CALCIUM 8.2 mg/dL (8.4-10.5); GFR NON-AFRICAN AMERICAN > 60
[2017-11-04 20:40] LABS: TROPONIN I < 0.01 ng/mL
[2017-11-04] MEDS ORDERED: cefTRIAXone 1 gm 1 GM/100 ML BAG IVPB STA (20:55)
[2017-11-04] MEDS ORDERED: metroNIDAZOLE IV 500 mg/100 ml 500 MG/100 ML BAG IVPB STA (20:55)
[2017-11-04 21:00] LABS: PH,URINE 7.5 (4.7-8.0); URINE BILIRUBIN NEGATIVE (NEGATIVE); URINE BLOOD LARGE (NEGATIVE); URINE GLUCOSE (UA) 500 mg/dL (NEGATIVE); URINE LEUKOCYTE ESTERASE LARGE Leu/uL (NEGATIVE); URINE PROTEIN 100 mg/dL (<30 mg/dL); URINE UROBILINOGEN 0.2 E.U./dL (<1 E.U./dL)
[2017-11-04 21:02] LABS: URINE APPEARANCE CLOUDY (CLEAR); URINE COLOR YELLOW (YELLOW)
[2017-11-04 21:11] LABS: URINE RBC TNTC /hpf (0-2); URINE WBC TNTC /hpf (0-6)
[2017-11-04 21:12] LABS: URINE BACTERIA MANY (NEG)
--- NOTE | 2017-11-04 21:42 | CP.PCM.HP ---
<Juan Blanco - Last Filed: 11/04/17 23:29> History of Present Illness - History of Present Illness History of Present Illness: CC: Diarrhea HPI: Patient is a 87 year old AA female with past medical history of Dementia, Parkinson's diseaes, HTN, HLD, TIA, chronic back pain, sacral ulcer who is brought in be her family with concern for acute diarrhea and increased fatigue. Patient is somnolent and with limited participation in interview. Family at bedside and provides majority of history. [facility] after [place] [facility] [place] for [place]. Patient had been home for five days when she began to have diarrhea for the past 48 hours. Patient family reports patient wears diapers and that 2 days prior she had 3-4 episodes of loose stool and with in the past 24 hours she has had an increase in loose watery stool. Family described stool as liquid, yellow, without blood and some bubbling. Patient family states patient has not had any complaints of headache, chest pain, shortness of breath, abdominal pain, fever, chills, nausea, vomiting, weakness, focal deficits. 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 Desouza Pharm: [facility] Present on Admission - Present on Admission Any Indicators Present on Admission: Yes Urinary Catheter: No Decubitus Ulcer Present: Yes Decubitus Ulcer Location: Sacrum Decubitus Ulcer Stage: II (Wound vac in place, c/d/i) Review of Systems - Review of Systems All systems: reviewed and no additional remarkable complaints except (as mentioned in HPI) Past Patient History - Infectious Disease Hx of Infectious Diseases: None - Past Social History Smoking Status: Never Smoked Alcohol: None Drugs: Denies Home Situation {Lives}: With Family - CARDIAC Hx Pacemaker: No - PULMONARY Hx Respiratory Disorders: No - NEUROLOGICAL Hx Neurological Disorder: Yes Hx Parkinson's Disease: Yes - HEENT Hx HEENT Problems: Yes (eyeglasses) Other/Comment: eye sx fatty tissue removed from both eyelids - RENAL Hx Chronic Kidney Disease: No - ENDOCRINE/METABOLIC Hx Endocrine Disorders: No - HEMATOLOGICAL/ONCOLOGICAL Hx Cancer: No - INTEGUMENTARY Hx Dermatological Problems: No - MUSCULOSKELETAL/RHEUMATOLOGICAL Hx Falls: No - GASTROINTESTINAL Hx Diarrhea: Yes - GENITOURINARY/GYNECOLOGICAL Hx Genitourinary Disorders: No - PSYCHIATRIC Hx Psychophysiologic Disorder: No Hx Substance Use: No - SURGICAL HISTORY Hx Mastectomy: No - ANESTHESIA Hx Anesthesia Reactions: No Hx Malignant Hyperthermia: No Meds Allergies/Adverse Reactions: Allergies Allergy/AdvReac Type Severity Reaction Status Date / Time No Known Allergies Allergy Verified 11/04/17 18:10 Physical Exam - Constitutional Appears: Non-toxic, No Acute Distress - Head Exam Head Exam: ATRAUMATIC, NORMAL INSPECTION, NORMOCEPHALIC - Eye Exam Eye Exam: PERRL. absent: Conjunctival injection, Nystagmus, Periorbital tenderness - ENT Exam ENT Exam: Mucous Membranes Dry - Respiratory Exam Respiratory Exam: Clear to Auscultation Bilateral, NORMAL BREATHING PATTERN. absent: Rhonchi, Wheezes - Cardiovascular Exam Cardiovascular Exam: RRR, +S1, +S2, Systolic Murmur - GI/Abdominal Exam GI & Abdominal Exam: Normal Bowel Sounds, Soft. absent: Distended, Firm, Guarding, Tenderness Additional comments: PEG tube in place with dressing intact - Extremities Exam Extremities exam: Positive for: normal capillary refill. Negative for: calf tenderness Additional comments: weight offloading boots in place b/l, trace edema b/l - Back Exam Additional comments: Sacral decubius ulcer with wound vac in place, dressing is c/d/i, skin discolaration noted around lower back Raised abscess with mild fluctuation noted on left posterior thoracic/scapula - Neurological Exam Neurological exam: Alert - Psychiatric Exam Additional comments: lethargic - Skin Skin Exam: Dry, Warm Additional comments: skin discolaration noted on lower back Results - Vital Signs Recent Vital Signs: Last Vital Signs Temp 99.9 F H 11/04/17 18:21 Pulse 99 H 11/04/17 19:24 Resp 18 11/04/17 19:24 BP 127/57 L 11/04/17 19:24 Pulse Ox 98 11/04/17 19:24 - Labs Result Diagrams: 11/04/17 19:00 11/04/17 19:00 Labs: Laboratory Results - last 24 hr 11/04/17 11/04/17 11/04/17 19:00 19:00 19:00 WBC 16.3 H D RBC 3.38 L Hgb 9.2 L Hct 28.5 L MCV 84.3 MCH 27.2 MCHC 32.3 RDW 15.8 H Plt Count 509 H MPV 9.0 Gran % 79.1 H Lymph % (Auto) 13.7 L [place] % (Auto) 6.2 H Eos % (Auto) 0.9 L Baso % (Auto) 0.1 Gran # 12.90 H Lymph # (Auto) 2.2 [place] # (Auto) 1.0 H Eos # (Auto) 0.2 Baso # (Auto) 0.02 PT 13.4 H INR 1.17 H APTT 33.5 pO2 63 H VBG pH 7.50 H VBG pCO2 42.0 VBG HCO3 32.8 H VBG Total CO2 34.1 H VBG O2 Sat (Calc) 95.8 H VBG Base Excess 8.7 H VBG Potassium 3.3 L Sodium 135.0 Chloride 101.0 Glucose 168 H Lactate 2.1 FiO2 21.0 Potassium Carbon Dioxide Anion Gap BUN Creatinine Est GFR ( Amer) Est GFR (Non-Af Amer) Random Glucose Calcium Phosphorus Magnesium Total Bilirubin AST ALT Alkaline Phosphatase Troponin I Total Protein Albumin Globulin Albumin/Globulin Ratio Venous Blood Potassium 3.3 L Urine Color Urine Appearance Urine pH Ur Specific [place] Urine Protein Urine Glucose (UA) Urine Ketones Urine Blood Urine Nitrate Urine Bilirubin Urine Urobilinogen Ur Leukocyte Esterase Urine RBC Urine WBC Ur Epithelial Cells Urine Bacteria 11/04/17 11/04/17 19:00 20:35 WBC RBC Hgb Hct MCV MCH MCHC RDW Plt Count MPV Gran % Lymph % (Auto) [place] % (Auto) Eos % (Auto) Baso % (Auto) Gran # Lymph # (Auto) [place] # (Auto) Eos # (Auto) Baso # (Auto) PT INR APTT pO2 VBG pH VBG pCO2 VBG HCO3 VBG Total CO2 VBG O2 Sat (Calc) VBG Base Excess VBG Potassium Sodium 139 Chloride 99 Glucose Lactate FiO2 Potassium 3.3 L Carbon Dioxide 30 Anion Gap 13 BUN 17 Creatinine 0.5 L Est GFR ( Amer) > 60 Est GFR (Non-Af Amer) > 60 Random Glucose 158 H Calcium 8.2 L Phosphorus 2.1 L Magnesium 1.8 Total Bilirubin 0.1 L AST 37 H D ALT 28 Alkaline Phosphatase 93 Troponin I < 0.01 Total Protein 7.0 Albumin 2.9 L Globulin 4.1 Albumin/Globulin Ratio 0.7 L Venous Blood Potassium Urine Color Yellow Urine Appearance Cloudy Urine pH 7.5 Ur Specific [place] 1.020 Urine Protein 100 H Urine Glucose (UA) 500 H Urine Ketones Negative Urine Blood Large H Urine Nitrate Positive H Urine Bilirubin Negative Urine Urobilinogen 0.2 Ur Leukocyte Esterase Large H Urine RBC Tntc Urine WBC Tntc Ur Epithelial Cells 10 - 12 Urine Bacteria Many Assessment & Plan - Assessment and Plan (Free Text) Assessment: 87 year old AA female with past medical history of Dementia, Parkinson's diseaes , HTN, HLD, TIA, chronic back pain, sacral ulcer who is brought in be her family with concern for acute diarrhea and increased fatigue. Patient found to have SIRS with infectious source of UTI v. diarrhea v. chronic sacral ulcer. Patient admitted for IV abx, fluids and further management. Plan: Sepsis SIRS plus supected infection - Lactate 2.1, tachycardia, elevated WBC 16.3 - UA showing positive leuk est, nitrate - Diarrhea, suspected C.diff - Chronic sacral wound with wound vac in place - Abscess noted left scapula - BP stable, IV 250mL maintenance fluids - IV antibiotics - General surgery consult, for possible abscess drainage - C. diff - Blood, sputum, wound cultures - ID consult, appreciate recs Hx of Parkinsons - continue home meds HTN - Continue home meds DVT ppx: SCDs GI PPX: Protonix Case and plan discussed with attending - Date & Time Date: 11/04/17 Time: 23:14 <Ricky Ruiz - Last Filed: 11/05/17 22:29> Results - Vital Signs Recent Vital Signs: Last Vital Signs Temp 99.6 F 11/05/17 17:53 Pulse 86 11/05/17 17:53 Resp 18 11/05/17 01:58 BP 112/61 11/05/17 17:53 Pulse Ox 99 05/12/18 23:49 - Labs Result Diagrams: 11/05/17 06:00 11/05/17 06:00 Labs: Laboratory Results - last 24 hr 11/04/17 11/05/17 11/05/17 22:50 06:00 06:00 WBC 15.4 H RBC 3.29 L Hgb 8.7 L Hct 27.8 L MCV 84.5 MCH 26.4 MCHC 31.3 RDW 15.7 H Plt Count 509 H MPV 8.9 Gran % 76.4 H Lymph % (Auto) 15.5 L [place] % (Auto) 6.4 H Eos % (Auto) 1.6 Baso % (Auto) 0.1 Gran # 11.80 H Lymph # (Auto) 2.4 [place] # (Auto) 1.0 H Eos # (Auto) 0.2 Baso # (Auto) 0.02 PT 14.4 H INR 1.25 H pO2 122 H VBG pH 7.51 H VBG pCO2 40.0 VBG HCO3 31.9 H VBG Total CO2 33.1 H VBG O2 Sat (Calc) 99.8 H VBG Base Excess 8.2 H VBG Potassium 3.1 L Sodium 136.0 Chloride 103.0 Glucose 137 H Lactate 1.2 FiO2 21.0 Potassium Carbon Dioxide Anion Gap BUN Creatinine Est GFR ( Amer) Est GFR (Non-Af Amer) POC Glucose (mg/dL) Random Glucose Calcium Total Bilirubin AST ALT Alkaline Phosphatase Total Protein Albumin Globulin Albumin/Globulin Ratio Venous Blood Potassium 3.1 L 11/05/17 11/05/17 11/05/17 06:00 06:37 11:09 WBC RBC Hgb Hct MCV MCH MCHC RDW Plt Count MPV Gran % Lymph % (Auto) [place] % (Auto) Eos % (Auto) Baso % (Auto) Gran # Lymph # (Auto) [place] # (Auto) Eos # (Auto) Baso # (Auto) PT INR pO2 VBG pH VBG pCO2 VBG HCO3 VBG Total CO2 VBG O2 Sat (Calc) VBG Base Excess VBG Potassium Sodium 144 Chloride 105 Glucose Lactate FiO2 Potassium 3.8 Carbon Dioxide 29 Anion Gap 14 BUN 13 Creatinine 0.5 L Est GFR ( Amer) > 60 Est GFR (Non-Af Amer) > 60 POC Glucose (mg/dL) 115 H 101 Random Glucose 122 H Calcium 8.4 Total Bilirubin 0.2 AST 34 ALT 26 Alkaline Phosphatase 89 Total Protein 6.3 Albumin 2.6 L Globulin 3.7 Albumin/Globulin Ratio 0.7 L Venous Blood Potassium 11/05/17 11/05/17 16:04 21:00 WBC RBC Hgb Hct MCV MCH MCHC RDW Plt Count MPV Gran % Lymph % (Auto) [place] % (Auto) Eos % (Auto) Baso % (Auto) Gran # Lymph # (Auto) [place] # (Auto) Eos # (Auto) Baso # (Auto) PT INR pO2 VBG pH VBG pCO2 VBG HCO3 VBG Total CO2 VBG O2 Sat (Calc) VBG Base Excess VBG Potassium Sodium Chloride Glucose Lactate FiO2 Potassium Carbon Dioxide Anion Gap BUN Creatinine Est GFR ( Amer) Est GFR (Non-Af Amer) POC Glucose (mg/dL) 112 H 114 H Random Glucose Calcium Total Bilirubin AST ALT Alkaline Phosphatase Total Protein Albumin Globulin Albumin/Globulin Ratio Venous Blood Potassium
--- NOTE | 2017-11-04 22:48 | CP.PCM.CON ---
<Ant Rae - Last Filed: 11/05/17 06:10> History of Present Illness - History of Present Illness History of Present Illness: General Surgery Consult For Dr. Guzman Reason for Consult: back abscess, sacral wound 87F with past medical history that includes Dementia, Parkinson's disease, HTN, HLD, TIA, chronic back pain, sacral ulcer with wound vac who was admitted for diarrhea and sepsis. Patient was seen and examined in the ED. Patient is poor historian due to medical history. Family was bedside and provided the history. Patient was discharged 5 days ago from [facility] rehab facility. She was at [facility] for approximately 100 days. Patient was discharged from [facility] in July where she was admitted for sepsis. During that admission she also had a large sacral wound that was debrided with wound vac application. Sacral wound has decreased in size since then with negative pressure therapy. Patient has had diarrhea for the past 48 hours. Family reports 3-4 episodes of loose stool per day. Over the last day has had it has turned into loose watery stool (yellow and non-bloody). ROS unobtainable due to clinical condition. PMD: Dr. 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, Physcial therapy bi-weekly, needs assistance with all ADLs Review of Systems - Review of Systems Systems not reviewed;Unavailable: Acuity of Condition, Dementia Past Patient History - Infectious Disease Hx of Infectious Diseases: None - Past Social History Smoking Status: Never Smoked - CARDIAC Hx Pacemaker: No - PULMONARY Hx Respiratory Disorders: No - NEUROLOGICAL Hx Neurological Disorder: Yes Hx Parkinson's Disease: Yes - HEENT Hx HEENT Problems: Yes (eyeglasses) Other/Comment: eye sx fatty tissue removed from both eyelids - RENAL Hx Chronic Kidney Disease: No - ENDOCRINE/METABOLIC Hx Endocrine Disorders: No - HEMATOLOGICAL/ONCOLOGICAL Hx Cancer: No - INTEGUMENTARY Hx Dermatological Problems: No - MUSCULOSKELETAL/RHEUMATOLOGICAL Hx Falls: No - GASTROINTESTINAL Hx Diarrhea: Yes - GENITOURINARY/GYNECOLOGICAL Hx Genitourinary Disorders: No - PSYCHIATRIC Hx Psychophysiologic Disorder: No Hx Substance Use: No - SURGICAL HISTORY Hx Mastectomy: No - ANESTHESIA Hx Anesthesia Reactions: No Hx Malignant Hyperthermia: No Meds Allergies/Adverse Reactions: Allergies Allergy/AdvReac Type Severity Reaction Status Date / Time No Known Allergies Allergy Verified 11/04/17 18:10 - Medications Medications: Current Medications Sodium Chloride (Sodium Chloride 0.9%) 1,000 mls @ 250 mls/hr IV .Q4H ONE Stop: 11/05/17 00:00 Last Admin: 11/04/17 20:42 Dose: 250 mls/hr Potassium Chloride (Potassium Chloride 20 Meq/100 Ml) 20 meq in 100 mls @ 50 mls/hr IVPB ONCE ONE Stop: 11/04/17 23:05 Last Admin: 11/04/17 22:41 Dose: 50 mls/hr Physical Exam - Constitutional Appears: Confused, Chronically Ill - Head Exam Head Exam: ATRAUMATIC, NORMOCEPHALIC - Eye Exam Eye Exam: EOMI, Normal appearance - ENT Exam ENT Exam: Mucous Membranes Dry - Neck Exam Neck exam: Negative for: Tenderness - Respiratory Exam Respiratory Exam: NORMAL BREATHING PATTERN - Cardiovascular Exam Cardiovascular Exam: REGULAR RHYTHM - GI/Abdominal Exam GI & Abdominal Exam: Normal Bowel Sounds, Soft. absent: Distended, Guarding, Rebound, Rigid, Tenderness Additional comments: PEG tube in place with dressing around base - Extremities Exam Extremities exam: Positive for: normal capillary refill Additional comments: heel offloading boots in place bilaterally trace edema on bilateral lower extremities - Back Exam Additional comments: sacral wound with wound vac applied - Neurological Exam Neurological exam: Altered - Psychiatric Exam Psychiatric exam: Flat Affect - Skin Skin Exam: Dry, Warm Additional comments: Left scapula raised lesion with erythema, induration and no fluctuation noted skin discolaration/ecchymosis noted on lower back Results - Vital Signs Recent Vital Signs: Last Vital Signs Temp 99.9 F H 11/04/17 22:30 Pulse 90 11/04/17 22:08 Resp 18 11/04/17 22:08 BP 123/62 11/04/17 22:08 Pulse Ox 98 11/04/17 22:08 - Labs Result Diagrams: 11/04/17 19:00 11/04/17 19:00 Assessment & Plan - Assessment and Plan (Free Text) Assessment: 87 F with back abscess, sacral wound with wound vac, UTI and sepsis Plan: -NPO -IV antibiotics as per ID -IV fluids -Continue negative pressure therapy -Wound culture and Blood culture -f/u Stool studies -Warm compresses to back lesion -Further recommendations as per Dr. Megan Rae PGY1 - Date & Time Date: 11/04/17 Time: 11:00 <Edilson Guzman - Last Filed: 11/11/17 19:20> Results - Vital Signs Recent Vital Signs: Last Vital Signs Temp 97.5 F L 11/08/17 14:00 Pulse 80 11/08/17 14:00 Resp 20 11/08/17 14:00 BP 139/78 11/08/17 14:00 Pulse Ox 99 11/08/17 14:00 - Labs Result Diagrams: 11/08/17 07:20 11/08/17 07:20 Attending/Attestation - Attestation I have personally seen and examined this patient.: Yes I have fully participated in the care of the patient.: Yes I have reviewed all pertinent clinical information: Yes Notes (Text): Pt was seen and examined at bedside Agree with above note and assessment Pt with Sacral decubitus ulcer Wound vac is on Labs and radiology reviewed Wound care consult Frequent turning of position Plan d.w nurse at bedside
[2017-11-04 22:56] LABS: VENOUS BLOOD GAS BASE EXCESS 8.2 mmol/L (0.0-2.0); VENOUS BLOOD GAS PO2 122 mm/Hg (30-55); VENOUS BLOOD PH 7.51 (7.32-7.43)
[2017-11-04] MEDS ORDERED: Vancomycin 1gm in NS 250ml 1 GM/250 ML BAG IVPB SCH (23:30)
[2017-11-04] MEDS ORDERED: Ciprofloxacin 400mg/200ml D5W 400 MG/200 ML BAG IVPB SCH (23:30)
[2017-11-05] MEDS: Piperacillin/Tazobact 3.375 gm 100 ML IVPB SCH ×5 (01:20→23:18)
[2017-11-05 02:26] VITALS: BMI 21.9
--- NOTE | 2017-11-05 02:52 | PCM.SEPTIC ---
Sepsis Progress Note - Reassessment Type Date of Evaluation: 11/05/17 Time of Evaluation: 01:58 Reassessment Type: Non-invasive reassessment - Non Invasive Reassessment Were the most recent vital sign reviewed: Yes Vital Sign (Latest): Temp Pulse Resp BP Pulse Ox 98.2 F 93 H 18 120/60 99 11/05/17 01:58 11/05/17 01:58 11/05/17 01:58 11/05/17 01:58 11/04/17 23:49 Cardiovascular: Yes: Regular Rate, Rhythm Respiratory: Yes: Normal Breath Sounds. No: Rales, Rhonchi, Wheezing Capillary Refill: Normal (Less than 2 sec) Skin: Warm, Dry, Other
[2017-11-05] MEDS ORDERED: metroNIDAZOLE IV 500 mg/100 ml 500 MG/100 ML BAG IVPB SCH (06:00)
[2017-11-05] MEDS: metroNIDAZOLE IV 500 mg/100 ml 500 MG/100 ML BAG IVPB SCH ×2 (06:02→14:03)
[2017-11-05 07:08] LABS: BASO # 0.02 K/mm3 (0.0-2.0); BASO % 0.1 % (0.0-3.0); EOS # 0.2 (0.0-0.7); EOS % 1.6 % (1.5-5.0); GRAN # 11.8 (1.4-6.5); GRAN % 76.4 % (50.0-68.0); HEMOGLOBIN 8.7 g/dL (12.0-16.0); LYMPH # 2.4 (1.2-3.4); LYMPH % 15.5 % (22.0-35.0); MEAN CELL VOLUME 84.5 fl (80.0-105.0); MEAN CORPUSCULAR HEMOGLOBIN 26.4 pg (25.0-35.0); MEAN CORPUSCULAR HGB CONC 31.3 g/dl (31.0-37.0); MEAN PLATELET VOLUME 8.9 fl (7.0-11.0); MONO % 6.4 % (1.0-6.0); RBC 3.29 10^6/uL (3.5-6.1); RED CELL DISTRIBUTION WIDTH 15.7 % (11.5-14.5); WHITE BLOOD COUNT 15.4 10^3/ul (4.5-11.0)
[2017-11-05 07:28] LABS: ALB/GLOB RATIO 0.7 (1.1-1.8); ALBUMIN 2.6 g/dL (3.0-4.8); ALT/SGPT 26 U/L (7-56); AST/SGOT 34 U/L (14-36); BLOOD UREA NITROGEN 13 mg/dL (7-21); CALCIUM 8.4 mg/dL (8.4-10.5); GFR NON-AFRICAN AMERICAN > 60
[2017-11-05 07:29] LABS: INR 1.25 (0.93-1.08); PROTHROMBIN TIME 14.4 SECONDS (9.4-12.5)
--- NOTE | 2017-11-05 09:35 | RAD ---
HISTORY: Sepsis Patient COMPARISON: Comparison chest 08/17/2017 FINDINGS: LUNGS: No active pulmonary disease. PLEURA: No significant pleural effusion identified, no pneumothorax apparent. CARDIOVASCULAR: Heart appears mildly enlarged. OSSEOUS STRUCTURES: No significant abnormalities. VISUALIZED UPPER ABDOMEN: Normal. OTHER FINDINGS: None. IMPRESSION: Mild cardiomegaly. No acute infiltrates.
--- NOTE | 2017-11-05 09:45 | CARD ---
APPROVED REPORT EKG Measurement Heart [id number] <Conclusion> Normal sinus rhythm PRWP Improved repolarization c/w ECG 08/07/17
[2017-11-05] MEDS: Multivitamin With Minerals Tab PO SCH (10:14)
[2017-11-05] MEDS: Carbidopa/Levodopa 50/200 CR PO SCH (10:15)
[2017-11-05] MEDS: Collagenase 250 Units/gm Ointment(30 gm) TOP SCH (11:56)
--- NOTE | 2017-11-05 12:03 | CP.PCM.PN ---
<Yuliana Macias - Last Filed: 11/05/17 11:53> Subjective - Date & Time of Evaluation Date of Evaluation: 11/05/17 Time of Evaluation: 11:54 - Subjective Subjective: Yuliana Macias, PGY1, Progress Note for Dr Nieves: Patient seen and examined at bedside. No acute events overnight. Pt answering few questions, has a history of dementia (at baseline), denies fever, chills, pain, any further diarrheal episodes since admission, weakness, leg swelling, abdominal pain, cp, sob. Objective - Vital Signs/Intake and Output Vital Signs (last 24 hours): Temp Pulse Resp BP Pulse Ox 98.2 F 85 18 112/63 99 11/05/17 01:58 11/05/17 10:15 11/05/17 01:58 11/05/17 10:15 11/04/17 23:49 Intake and Output: 11/05/17 11/05/17 06:59 18:59 Output Total 100 Balance -100 - Medications Medications: Current Medications Aspirin (Ecotrin) 81 mg PO DAILY [facility] Last Admin: 11/05/17 10:15 Dose: 81 mg Carbidopa/Levodopa (Sinemet Cr) 1 tab PO DAILY [facility] Last Admin: 11/05/17 10:15 Dose: 1 tab Collagenase (Santyl) 0 gm TOP DAILY [facility] Piperacillin Sod/Tazobactam Sod (Zosyn 3.375 In Ns 100ml) 100 mls @ 200 mls/hr IVPB Q6 [facility] PRN Reason: Protocol Stop: 11/12/17 00:01 Last Admin: 11/05/17 08:24 Dose: 200 mls/hr Metronidazole (Flagyl) 500 mg in 100 mls @ 100 mls/hr IVPB Q8 [facility] PRN Reason: Protocol Last Admin: 11/05/17 06:02 Dose: 100 mls/hr Losartan Potassium (Cozaar) 50 mg PO DAILY [facility] Last Admin: 11/05/17 10:15 Dose: 50 mg Memantine (Namenda) 5 mg PO BID [facility] Last Admin: 11/05/17 10:15 Dose: 5 mg Multivitamins/Minerals (Therapeutic-M Tab) 1 tab PO 0800 [facility] Last Admin: 11/05/17 10:14 Dose: 1 tab Pantoprazole Sodium (Protonix Inj) 40 mg IVP DAILY [facility] Last Admin: 11/05/17 10:15 Dose: 40 mg Zinc Sulfate (Zinc Sulfate 220 Mg Cap) 220 mg PO DAILY [facility] Last Admin: 11/05/17 10:15 Dose: 220 mg - Labs Labs: 11/05/17 06:00 11/05/17 06:00 PT 14.4 SECONDS (9.4-12.5) H 11/05/17 06:00 INR 1.25 (0.93-1.08) H 11/05/17 06:00 APTT 33.5 Seconds (25.1-36.5) 11/04/17 19:00 - Constitutional Appears: Non-toxic, No Acute Distress, Older Than Stated Age, Chronically Ill - Head Exam Head Exam: ATRAUMATIC, NORMOCEPHALIC - Eye Exam Eye Exam: EOMI, PERRL. absent: Conjunctival injection, Nystagmus, Scleral icterus Pupil Exam: NORMAL ACCOMODATION, PERRL. absent: Fixed, Irregular, Unequal - ENT Exam ENT Exam: Mucous Membranes Dry - Neck Exam Neck Exam: Full ROM - Respiratory Exam Respiratory Exam: Clear to Ausculation Bilateral, NORMAL BREATHING PATTERN. absent: Accessory Muscle Use, Chest Wall Tenderness, Rhonchi, Wheezes, Respiratory Distress, Stridor - Cardiovascular Exam Cardiovascular Exam: RRR, +S1, +S2. absent: Murmur - GI/Abdominal Exam GI & Abdominal Exam: Soft, Normal Bowel Sounds. absent: Distended, Firm, Tenderness, Mass, Organomegaly, Rebound Additional comments: + PEG tube in place, dressing on, clean, dry - Extremities Exam Extremities Exam: Full ROM, Normal Inspection. absent: Calf Tenderness, Pedal Edema - Back Exam Back Exam: NORMAL INSPECTION Additional comments: left scapula raised lesion, mild induration and erythema, no fluctuance noted. - Neurological Exam Neurological Exam: Awake (oriented to self, at baseline) - Psychiatric Exam Psychiatric exam: Normal Affect, Normal Mood - Skin Skin Exam: Dry, Normal Color, Warm Assessment and Plan - Assessment and Plan (Free Text) Assessment: 87 year old female with past medical history of Dementia, Parkinson's diseaes, HTN, HLD, TIA, chronic back pain, sacral ulcer, presents for diarrhea and increasing fatigue. Pt found to be septic, 2/2 likely UTI: Sepsis: 2/2 likely UTI vs less likely intraabominal (C diff vs bacterial/viral gastroenteritis) vs infected sacral ulcer/left scapula lesion - lactate trended down. leukocytosis mildly improved, afebrile. - UA showing positive leuk est, nitrate, pending urine culture - No further episodes of diarrhea since admission. monitor. send for c diff/ stool culture - discussed with nursing staff. - Chronic sacral wound with wound vac in place, Surgery on board, unlikely infected, will change wound vac tomorrow. - Zosyn. Will discuss with ID regarding discontinuing Flagyl. - General surgery consult appreciated - F/u Blood, sputum, wound cultures, procal - ID consult, appreciate recs Hx of Parkinsons - continue home meds HTN - Continue home meds DVT ppx: SCDs GI PPX: Protonix Case and plan discussed with attending Dr Nieves. Yuliana Macias, PGY1 <Artemio Nieves - Last Filed: 11/05/17 12:34> Objective - Vital Signs/Intake and Output Vital Signs (last 24 hours): Temp Pulse Resp BP Pulse Ox 98.2 F 85 18 112/63 99 11/05/17 01:58 11/05/17 10:15 11/05/17 01:58 11/05/17 10:15 11/04/17 23:49 Intake and Output: 11/05/17 11/05/17 06:59 18:59 Output Total 100 Balance -100 - Medications Medications: Current Medications Aspirin (Ecotrin) 81 mg PO DAILY [facility] Last Admin: 11/05/17 10:15 Dose: 81 mg Carbidopa/Levodopa (Sinemet Cr) 1 tab PO DAILY [facility] Last Admin: 11/05/17 10:15 Dose: 1 tab Collagenase (Santyl) 0 gm TOP DAILY [facility] Last Admin: 11/05/17 11:56 Dose: Not Given Piperacillin Sod/Tazobactam Sod (Zosyn 3.375 In Ns 100ml) 100 mls @ 200 mls/hr IVPB Q6 [facility] PRN Reason: Protocol Stop: 11/12/17 00:01 Last Admin: 11/05/17 08:24 Dose: 200 mls/hr Metronidazole (Flagyl) 500 mg in 100 mls @ 100 mls/hr IVPB Q8 [facility] PRN Reason: Protocol Last Admin: 11/05/17 06:02 Dose: 100 mls/hr Losartan Potassium (Cozaar) 50 mg PO DAILY [facility] Last Admin: 11/05/17 10:15 Dose: 50 mg Memantine (Namenda) 5 mg PO BID [facility] Last Admin: 11/05/17 10:15 Dose: 5 mg Multivitamins/Minerals (Therapeutic-M Tab) 1 tab PO 0800 [facility] Last Admin: 11/05/17 10:14 Dose: 1 tab Pantoprazole Sodium (Protonix Inj) 40 mg IVP DAILY [facility] Last Admin: 11/05/17 10:15 Dose: 40 mg Zinc Sulfate (Zinc Sulfate 220 Mg Cap) 220 mg PO DAILY [facility] Last Admin: 11/05/17 10:15 Dose: 220 mg - Labs Labs: 11/05/17 06:00 11/05/17 06:00 PT 14.4 SECONDS (9.4-12.5) H 11/05/17 06:00 INR 1.25 (0.93-1.08) H 11/05/17 06:00 APTT 33.5 Seconds (25.1-36.5) 11/04/17 19:00 Attending/Attestation - Attestation I have personally seen and examined this patient.: Yes I have fully participated in the care of the patient.: Yes I have reviewed all pertinent clinical information, including history, physical exam and plan: Yes Notes (Text): 11/05/17 12:30 87 year old female with past medical history of dementia, Parkinson's disease, hypertension and sacral ulcer with wound vac presented with diarrhea and fatigue. She was admitted for sepsis with UTI and started on iv antibiotics. Will follow up on cultures and stool studies. Surgery is also following for chronic sacral ulcer with wound vac care. Artemio Nieves MD Hospitalist.
--- NOTE | 2017-11-05 14:12 | CP.PCM.CON ---
History of Present Illness - History of Present Illness History of Present Illness: 87 year old female with PMH of Parkinson's disease, dementia, history of TIA, HTN, dyslipidemia, decubitus ulcer, dementia, history of eyelid surgery was admitted in 2017 in [facility] because of infected decubitus ulcer and was recommended to have 4-6 weeks of antibiotics together with local wound care, wound vacuum. The patient has been staying in a rehab center and the patient was noted to have loose bowel movement as well as lethargy. There was note of trend of hyperthermia as well. The patient on presentation is lethargic and full review of systems is difficult to obtain. Since being admitted the patient has not had bowel movements. On admission, the patient is noted to have leukocytosis. Patient continues to have the sacral wound vacuum in place. Infectious Diseases consult is requested to further evaluate and manage. Review of Systems - Review of Systems All systems: reviewed and no additional remarkable complaints except (as per HPI ) Past Patient History - Infectious Disease Hx of Infectious Diseases: None - Past Social History Smoking Status: Never Smoked Alcohol: None Drugs: Denies Home Situation {Lives}: With Family - CARDIAC Hx Pacemaker: No - PULMONARY Hx Respiratory Disorders: No - NEUROLOGICAL Hx Neurological Disorder: Yes Hx Parkinson's Disease: Yes - HEENT Hx HEENT Problems: Yes (eyeglasses) Other/Comment: eye sx fatty tissue removed from both eyelids - RENAL Hx Chronic Kidney Disease: No - ENDOCRINE/METABOLIC Hx Endocrine Disorders: No - HEMATOLOGICAL/ONCOLOGICAL Hx Cancer: No - INTEGUMENTARY Hx Dermatological Problems: No - MUSCULOSKELETAL/RHEUMATOLOGICAL Hx Falls: No - GASTROINTESTINAL Hx Diarrhea: Yes - GENITOURINARY/GYNECOLOGICAL Hx Genitourinary Disorders: No - PSYCHIATRIC Hx Psychophysiologic Disorder: No Hx Substance Use: No - SURGICAL HISTORY Hx Mastectomy: No - ANESTHESIA Hx Anesthesia Reactions: No Hx Malignant Hyperthermia: No Meds Allergies/Adverse Reactions: Allergies Allergy/AdvReac Type Severity Reaction Status Date / Time No Known Allergies Allergy Verified 11/04/17 18:10 - Medications Medications: Current Medications Aspirin (Ecotrin) 81 mg PO DAILY [facility] Carbidopa/Levodopa (Sinemet Cr) 1 tab PO DAILY [facility] Collagenase (Santyl) 0 gm TOP DAILY [facility] Sodium Chloride (Sodium Chloride 0.9%) 1,000 mls @ 250 mls/hr IV .Q4H ONE Stop: 11/05/17 00:00 Last Admin: 11/04/17 20:42 Dose: 250 mls/hr Losartan Potassium (Cozaar) 50 mg PO DAILY [facility] Memantine (Namenda) 5 mg PO BID [facility] Multivitamins/Minerals (Therapeutic-M Tab) 1 tab PO 0800 [facility] Pantoprazole Sodium (Protonix Inj) 40 mg IVP DAILY [facility] Zinc Sulfate (Zinc Sulfate 220 Mg Cap) 220 mg PO DAILY [facility] Physical Exam - Constitutional Appears: Chronically Ill, Other (somewhat lethargic) - Neck Exam Neck exam: Negative for: Meningismus - Respiratory Exam Respiratory Exam: Decreased Breath Sounds - Cardiovascular Exam Cardiovascular Exam: +S1, +S2 - GI/Abdominal Exam GI & Abdominal Exam: Soft. absent: Tenderness - Extremities Exam Additional comments: wound vacuum in place over the sacral area Results - Vital Signs Recent Vital Signs: Last Vital Signs Temp 99.9 F H 11/04/17 22:30 Pulse 90 11/04/17 22:08 Resp 18 11/04/17 22:08 BP 123/62 11/04/17 22:08 Pulse Ox 98 11/04/17 22:08 - Labs Result Diagrams: 11/05/17 06:00 11/05/17 06:00 Labs: Laboratory Results - last 24 hr 11/04/17 22:50 pO2 122 H VBG pH 7.51 H VBG pCO2 40.0 VBG HCO3 31.9 H VBG Total CO2 33.1 H VBG O2 Sat (Calc) 99.8 H VBG Base Excess 8.2 H VBG Potassium 3.1 L Sodium 136.0 Chloride 103.0 Glucose 137 H Lactate 1.2 FiO2 21.0 Venous Blood Potassium 3.1 L Assessment & Plan - Assessment and Plan (Free Text) Plan: Assessment Systemic Inflammatory response Syndrome, consider sepsis due to sacral decubitus ulcer, as well as UTI R/O recurrent aspiration diarrhea, probably antibiotic associated Parkinson's disease history of TIA HTN dyslipidemia decubitus ulcer dementia history of eyelid surgery Plan started Vancomycin and Zosyn pending blood, urine, wound cx follow up plans of Surgery for the sacral wound - patient has had 4-6 weeks of antibiotics for the ulcer earlier this year follow up stool for C. diff. overall prognosis is poor - should consider hospice
[2017-11-05] MEDS: Vancomycin 1gm in NS 250ml 1 GM/250 ML BAG IVPB SCH (15:23)
[2017-11-06] MEDS: Vancomycin 1gm in NS 250ml 1 GM/250 ML BAG IVPB SCH ×2 (02:34→15:40)
[2017-11-06] MEDS: Piperacillin/Tazobact 3.375 gm 100 ML IVPB SCH ×4 (05:33→23:41)
[2017-11-06 07:32] LABS: BASO # 0.04 K/mm3 (0.0-2.0); BASO % 0.3 % (0.0-3.0); EOS # 0.5 (0.0-0.7); EOS % 3.7 % (1.5-5.0); GRAN # 10.7 (1.4-6.5); GRAN % 74.1 % (50.0-68.0); HEMOGLOBIN 8.3 g/dL (12.0-16.0); LYMPH # 2.5 (1.2-3.4); MEAN CELL VOLUME 85.1 fl (80.0-105.0); MEAN CORPUSCULAR HEMOGLOBIN 26.9 pg (25.0-35.0); MEAN CORPUSCULAR HGB CONC 31.7 g/dl (31.0-37.0); MEAN PLATELET VOLUME 8.8 fl (7.0-11.0); MONO # 0.7 (0.1-0.6); MONO % 4.9 % (1.0-6.0); RBC 3.08 10^6/uL (3.5-6.1); RED CELL DISTRIBUTION WIDTH 16.1 % (11.5-14.5); WHITE BLOOD COUNT 14.5 10^3/ul (4.5-11.0)
[2017-11-06 07:49] LABS: ALB/GLOB RATIO 0.7 (1.1-1.8); ALBUMIN 2.6 g/dL (3.0-4.8); ALT/SGPT 22 U/L (7-56); AST/SGOT 39 U/L (14-36); BLOOD UREA NITROGEN 16 mg/dL (7-21); CALCIUM 8.3 mg/dL (8.4-10.5); GFR NON-AFRICAN AMERICAN > 60
--- NOTE | 2017-11-06 08:17 | CP.PCM.PN ---
<Ingris Ortiz - Last Filed: 11/06/17 08:14> Subjective - Date & Time of Evaluation Date of Evaluation: 11/06/17 Time of Evaluation: 07:00 - Subjective Subjective: Pt seen and examined at bedside this AM. No adverse event overnight. Patient was afebrile. Wound vac currently not connected when we entered the room. Objective - Vital Signs/Intake and Output Vital Signs (last 24 hours): Temp Pulse Resp BP Pulse Ox 99 F 85 18 124/66 97 11/06/17 06:00 11/06/17 06:00 11/06/17 06:00 11/06/17 06:00 11/06/17 06:00 Intake and Output: 11/06/17 11/06/17 06:59 18:59 Intake Total 0 Output Total 240 Balance -240 - Medications Medications: Current Medications Acetaminophen (Tylenol 325mg Tab) 650 mg PO ONCE PRN PRN Reason: Fever >100.4 F Aspirin (Ecotrin) 81 mg PO DAILY [facility] Last Admin: 11/05/17 10:15 Dose: 81 mg Carbidopa/Levodopa (Sinemet Cr) 1 tab PO DAILY [facility] Last Admin: 11/05/17 10:15 Dose: 1 tab Collagenase (Santyl) 0 gm TOP DAILY [facility] Last Admin: 11/05/17 11:56 Dose: Not Given Piperacillin Sod/Tazobactam Sod (Zosyn 3.375 In Ns 100ml) 100 mls @ 200 mls/hr IVPB Q6 [facility] PRN Reason: Protocol Stop: 11/12/17 00:01 Last Admin: 11/06/17 05:33 Dose: 200 mls/hr Vancomycin HCl (Vancomycin 1gm) 1 gm in 250 mls @ 167 mls/hr IVPB Q12H [facility] PRN Reason: Protocol Last Admin: 11/06/17 02:34 Dose: 167 mls/hr Losartan Potassium (Cozaar) 50 mg PO DAILY [facility] Last Admin: 11/05/17 10:15 Dose: 50 mg Memantine (Namenda) 5 mg PO BID [facility] Last Admin: 11/05/17 18:59 Dose: 5 mg Multivitamins/Minerals (Therapeutic-M Tab) 1 tab PO 0800 [facility] Last Admin: 11/05/17 10:14 Dose: 1 tab Pantoprazole Sodium (Protonix Inj) 40 mg IVP DAILY [facility] Last Admin: 11/05/17 10:15 Dose: 40 mg Zinc Sulfate (Zinc Sulfate 220 Mg Cap) 220 mg PO DAILY [facility] Last Admin: 11/05/17 10:15 Dose: 220 mg - Labs Labs: 11/06/17 07:00 11/06/17 07:00 PT 14.4 SECONDS (9.4-12.5) H 11/05/17 06:00 INR 1.25 (0.93-1.08) H 11/05/17 06:00 APTT 33.5 Seconds (25.1-36.5) 11/04/17 19:00 - Constitutional Appears: Well, Non-toxic, No Acute Distress - Head Exam Head Exam: ATRAUMATIC, NORMOCEPHALIC - Eye Exam Eye Exam: Normal appearance. absent: Conjunctival injection, Scleral icterus - ENT Exam ENT Exam: Mucous Membranes Moist, Normal Oropharynx - Respiratory Exam Respiratory Exam: NORMAL BREATHING PATTERN. 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 diff test if patient has persistent diarrhea PRN pain medication Apply duoderm dressing to skin breakdown area on the scapula Discussed with Dr Megan Ortiz, PGY2 <Edilson Guzman - Last Filed: 11/11/17 19:24> Objective - Vital Signs/Intake and Output Vital Signs (last 24 hours): Temp Pulse Resp BP Pulse Ox 97.5 F L 80 20 139/78 99 11/08/17 14:00 11/08/17 14:00 11/08/17 14:00 11/08/17 14:00 11/08/17 14:00 - Labs Labs: 11/08/17 07:20 11/08/17 07:20 PT 14.4 SECONDS (9.4-12.5) H 11/05/17 06:00 INR 1.25 (0.93-1.08) H 11/05/17 06:00 APTT 33.5 Seconds (25.1-36.5) 11/04/17 19:00 Attending/Attestation - Attestation I have personally seen and examined this patient.: Yes I have fully participated in the care of the patient.: Yes I have reviewed all pertinent clinical information, including history, physical exam and plan: Yes Notes (Text): Pt was seen and examined at bedside Agree with above note and assessment Pt with Sacral decubitus ulcer Wound vac is on c.w current mx for C diff Plan d.w primary team in detail.
[2017-11-06] MEDS: Multivitamin With Minerals Tab PO SCH (08:22)
[2017-11-06] MEDS: Carbidopa/Levodopa 50/200 CR PO SCH (11:03)
--- NOTE | 2017-11-06 11:42 | CP.PCM.PN ---
Subjective - Date & Time of Evaluation Date of Evaluation: 11/06/17 Time of Evaluation: 10:25 - Subjective Subjective: Patient is a little more awake today, no fevers, not in distress, no diarrhea currently. Objective - Vital Signs/Intake and Output Vital Signs (last 24 hours): Temp Pulse Resp BP Pulse Ox 99 F 85 18 124/66 97 11/06/17 06:00 11/06/17 06:00 11/06/17 06:00 11/06/17 06:00 11/06/17 06:00 Intake and Output: 11/06/17 11/06/17 06:59 18:59 Intake Total 0 Output Total 240 Balance -240 - Medications Medications: Current Medications Acetaminophen (Tylenol 325mg Tab) 650 mg PO ONCE PRN PRN Reason: Fever >100.4 F Aspirin (Ecotrin) 81 mg PO DAILY [facility] Last Admin: 11/05/17 10:15 Dose: 81 mg Carbidopa/Levodopa (Sinemet Cr) 1 tab PO DAILY [facility] Last Admin: 11/05/17 10:15 Dose: 1 tab Collagenase (Santyl) 0 gm TOP DAILY [facility] Last Admin: 11/05/17 11:56 Dose: Not Given Piperacillin Sod/Tazobactam Sod (Zosyn 3.375 In Ns 100ml) 100 mls @ 200 mls/hr IVPB Q6 [facility] PRN Reason: Protocol Stop: 11/12/17 00:01 Last Admin: 11/06/17 05:33 Dose: 200 mls/hr Vancomycin HCl (Vancomycin 1gm) 1 gm in 250 mls @ 167 mls/hr IVPB Q12H [facility] PRN Reason: Protocol Last Admin: 11/06/17 02:34 Dose: 167 mls/hr Losartan Potassium (Cozaar) 50 mg PO DAILY [facility] Last Admin: 11/05/17 10:15 Dose: 50 mg Memantine (Namenda) 5 mg PO BID [facility] Last Admin: 11/05/17 18:59 Dose: 5 mg Multivitamins/Minerals (Therapeutic-M Tab) 1 tab PO 0800 [facility] Last Admin: 11/06/17 08:22 Dose: 1 tab Pantoprazole Sodium (Protonix Inj) 40 mg IVP DAILY [facility] Last Admin: 11/05/17 10:15 Dose: 40 mg Zinc Sulfate (Zinc Sulfate 220 Mg Cap) 220 mg PO DAILY [facility] Last Admin: 11/05/17 10:15 Dose: 220 mg - Labs Labs: 11/06/17 07:00 11/06/17 07:00 PT 14.4 SECONDS (9.4-12.5) H 11/05/17 06:00 INR 1.25 (0.93-1.08) H 11/05/17 06:00 APTT 33.5 Seconds (25.1-36.5) 11/04/17 19:00 - Constitutional Appears: Non-toxic, Chronically Ill - Head Exam Head Exam: NORMAL INSPECTION - ENT Exam ENT Exam: Mucous Membranes Moist - Neck Exam Neck Exam: absent: Meningismus - Respiratory Exam Respiratory Exam: Decreased Breath Sounds - Cardiovascular Exam Cardiovascular Exam: +S1, +S2 - GI/Abdominal Exam GI & Abdominal Exam: Soft. absent: Tenderness Assessment and Plan - Assessment and Plan (Free Text) Plan: Assessment Systemic Inflammatory response Syndrome, consider sepsis due to sacral decubitus ulcer, as well as UTI R/O recurrent aspiration diarrhea, probably antibiotic associated Parkinson's disease history of TIA HTN dyslipidemia decubitus ulcer dementia history of eyelid surgery Plan continueVancomycin and Zosyn pending blood, urine, wound cx follow up plans of Surgery for the sacral wound - patient has had 4-6 weeks of antibiotics for the ulcer earlier this year stool for C. diff. is negative overall prognosis is poor - should consider hospice
--- NOTE | 2017-11-06 15:48 | CP.PCM.PN ---
<Blake Centeno - Last Filed: 11/06/17 15:45> Subjective - Date & Time of Evaluation Date of Evaluation: 11/06/17 Time of Evaluation: 07:20 - Subjective Subjective: PGY1 Medicine Note for Dr. Zuniga Patient seen and evaluated at bedside this morning. No acute events overnight. Patient has baseline dementia. She is answering questions in yes/no only. She has no complaints at this time. Objective - Vital Signs/Intake and Output Vital Signs (last 24 hours): Temp Pulse Resp BP Pulse Ox 98.2 F 82 20 120/61 97 11/06/17 14:00 11/06/17 14:00 11/06/17 14:00 11/06/17 14:00 11/06/17 14:00 Intake and Output: 11/06/17 11/06/17 06:59 18:59 Intake Total 0 0 Output Total 240 100 Balance -240 -100 - Medications Medications: Current Medications Acetaminophen (Tylenol 325mg Tab) 650 mg PO ONCE PRN PRN Reason: Fever >100.4 F Aspirin (Ecotrin) 81 mg PO DAILY [facility] Last Admin: 11/06/17 11:03 Dose: 81 mg Carbidopa/Levodopa (Sinemet Cr) 1 tab PO DAILY [facility] Last Admin: 11/06/17 11:03 Dose: 1 tab Collagenase (Santyl) 0 gm TOP DAILY [facility] Last Admin: 11/05/17 11:56 Dose: Not Given Piperacillin Sod/Tazobactam Sod (Zosyn 3.375 In Ns 100ml) 100 mls @ 200 mls/hr IVPB Q6 [facility] PRN Reason: Protocol Stop: 11/12/17 00:01 Last Admin: 11/06/17 12:15 Dose: 200 mls/hr Vancomycin HCl (Vancomycin 1gm) 1 gm in 250 mls @ 167 mls/hr IVPB Q12H [facility] PRN Reason: Protocol Last Admin: 11/06/17 02:34 Dose: 167 mls/hr Losartan Potassium (Cozaar) 50 mg PO DAILY [facility] Last Admin: 11/06/17 11:03 Dose: 50 mg Memantine (Namenda) 5 mg PO BID [facility] Last Admin: 11/06/17 11:03 Dose: 5 mg Multivitamins/Minerals (Therapeutic-M Tab) 1 tab PO 0800 [facility] Last Admin: 11/06/17 08:22 Dose: 1 tab Pantoprazole Sodium (Protonix Inj) 40 mg IVP DAILY [facility] Last Admin: 11/06/17 11:02 Dose: 40 mg Zinc Sulfate (Zinc Sulfate 220 Mg Cap) 220 mg PO DAILY [facility] Last Admin: 11/06/17 11:03 Dose: 220 mg - Labs Labs: 11/06/17 07:00 11/06/17 07:00 PT 14.4 SECONDS (9.4-12.5) H 11/05/17 06:00 INR 1.25 (0.93-1.08) H 11/05/17 06:00 APTT 33.5 Seconds (25.1-36.5) 11/04/17 19:00 - Constitutional Appears: Non-toxic, No Acute Distress, Chronically Ill - Head Exam Head Exam: ATRAUMATIC, NORMOCEPHALIC - Eye Exam Eye Exam: EOMI, PERRL. absent: Scleral icterus - ENT Exam ENT Exam: Mucous Membranes Moist - Neck Exam Neck Exam: absent: Lymphadenopathy - Respiratory Exam Respiratory Exam: Clear to Ausculation Bilateral, NORMAL BREATHING PATTERN. absent: Accessory Muscle Use, Rales, Rhonchi, Wheezes, Respiratory Distress - Cardiovascular Exam Cardiovascular Exam: REGULAR RHYTHM, +S1, +S2 - GI/Abdominal Exam GI & Abdominal Exam: Soft, Normal Bowel Sounds. absent: Distended, Firm, Guarding, Rigid, Tenderness Additional comments: PEG tube in place - dressing c/d/i - Exam Additional comments: cavazos cath in place - Extremities Exam Extremities Exam: absent: Calf Tenderness, Pedal Edema - Back Exam Additional comments: left scapula lesion, mild induration and mild erythema, no fluctuance noted - surgery changing dressing at time of exam. - Neurological Exam Neurological Exam: Alert, Awake. absent: Oriented x3 (oriented to self only - at baseline) - Psychiatric Exam Psychiatric exam: Normal Affect, Normal Mood - Skin Skin Exam: Dry, Warm Assessment and Plan - Assessment and Plan (Free Text) Assessment: 87 year old female with past medical history of Dementia, Parkinson's diseaes, HTN, HLD, TIA, chronic back pain, sacral ulcer, presents for diarrhea and increasing fatigue. Pt found to be septic, 2/2 likely UTI. Plan: Sepsis: 2/2 likely UTI vs less likely intraabominal (C diff vs bacterial/viral gastroenteritis) vs infected sacral ulcer/left scapula lesion - lactate trended down. leukocytosis mildly improved, afebrile. - UA showing positive leuk est, nitrate, pending urine culture - No further episodes of diarrhea since admission. monitor. send for c diff/ stool culture - discussed with nursing staff. - Chronic sacral wound with wound vac in place, Surgery on board, unlikely infected. - Wound vac changed today - General surgery consult appreciated - Blood cultures - negative at 24 hours - Sputum culture - negative at 24 hour - Wound cultures - pending - C. Diff - negative - f/u stool studies - f/u procal - ID consult, appreciate recs - Vanco 1gm IVPB q12h - Zosyn 3.375gm IVPB q6h Hx of Parkinsons - continue home meds HTN - Continue home meds DVT ppx: SCDs GI PPX: Protonix Palliative Care Consulted Case discussed with Dr. Efrain Centeno PGY1 <Aldair Zuniga - Last Filed: 11/06/17 16:30> Objective - Vital Signs/Intake and Output Vital Signs (last 24 hours): Temp Pulse Resp BP Pulse Ox 98.2 F 82 20 120/61 97 11/06/17 14:00 11/06/17 14:00 11/06/17 14:00 11/06/17 14:00 11/06/17 14:00 Intake and Output: 11/06/17 11/06/17 06:59 18:59 Intake Total 0 0 Output Total 240 100 Balance -240 -100 - Medications Medications: Current Medications Acetaminophen (Tylenol 325mg Tab) 650 mg PO ONCE PRN PRN Reason: Fever >100.4 F Aspirin (Ecotrin) 81 mg PO DAILY [facility] Last Admin: 11/06/17 11:03 Dose: 81 mg Carbidopa/Levodopa (Sinemet Cr) 1 tab PO DAILY [facility] Last Admin: 11/06/17 11:03 Dose: 1 tab Collagenase (Santyl) 0 gm TOP DAILY [facility] Last Admin: 11/05/17 11:56 Dose: Not Given Piperacillin Sod/Tazobactam Sod (Zosyn 3.375 In Ns 100ml) 100 mls @ 200 mls/hr IVPB Q6 [facility] PRN Reason: Protocol Stop: 11/12/17 00:01 Last Admin: 11/06/17 12:15 Dose: 200 mls/hr Vancomycin HCl (Vancomycin 1gm) 1 gm in 250 mls @ 167 mls/hr IVPB Q12H [facility] PRN Reason: Protocol Last Admin: 11/06/17 15:40 Dose: 167 mls/hr Losartan Potassium (Cozaar) 50 mg PO DAILY [facility] Last Admin: 11/06/17 11:03 Dose: 50 mg Memantine (Namenda) 5 mg PO BID [facility] Last Admin: 11/06/17 11:03 Dose: 5 mg Multivitamins/Minerals (Therapeutic-M Tab) 1 tab PO 0800 [facility] Last Admin: 11/06/17 08:22 Dose: 1 tab Pantoprazole Sodium (Protonix Inj) 40 mg IVP DAILY [facility] Last Admin: 11/06/17 11:02 Dose: 40 mg Zinc Sulfate (Zinc Sulfate 220 Mg Cap) 220 mg PO DAILY [facility] Last Admin: 11/06/17 11:03 Dose: 220 mg - Labs Labs: 11/06/17 07:00 11/06/17 07:00 PT 14.4 SECONDS (9.4-12.5) H 11/05/17 06:00 INR 1.25 (0.93-1.08) H 11/05/17 06:00 APTT 33.5 Seconds (25.1-36.5) 11/04/17 19:00 Attending/Attestation - Attestation I have personally seen and examined this patient.: Yes I have fully participated in the care of the patient.: Yes I have reviewed all pertinent clinical information, including history, physical exam and plan: Yes Notes (Text): 11/06/17 16:24 attending note; Patient seen and examined with resident. Patient is a 87 year old female with past medical history of dementia, Parkinson 's disease, hypertension and sacral ulcer with wound vac presented with diarrhea and fatigue. She was admitted for sepsis with UTI. currently on IV vancomycin and Zosyn. Blood cultures negative so far. C. difficile is negative. Diarrhea resolved. urine culture, wound culture is pending. Continue PEG tube feeding. Surgery evaluation requested for wound VAC change. Surgery is also following for chronic sacral ulcer with wound vac care. prognosis is poor. Case discussed with social welfare clerk in detail for discharge planning. upon discharge the patient will follow-up with Dr. Desouza.
[2017-11-07] MEDS: Vancomycin 1gm in NS 250ml 1 GM/250 ML BAG IVPB SCH (04:45)
[2017-11-07] MEDS: Piperacillin/Tazobact 3.375 gm 100 ML IVPB SCH ×4 (05:39→23:31)
[2017-11-07 06:38] LABS: BASO # 0.03 K/mm3 (0.0-2.0); BASO % 0.2 % (0.0-3.0); EOS # 0.6 (0.0-0.7); EOS % 4.5 % (1.5-5.0); GRAN # 9.23 (1.4-6.5); GRAN % 73.2 % (50.0-68.0); HEMOGLOBIN 8.3 g/dL (12.0-16.0); LYMPH % 16.2 % (22.0-35.0); MEAN CELL VOLUME 84.7 fl (80.0-105.0); MEAN CORPUSCULAR HEMOGLOBIN 26.5 pg (25.0-35.0); MEAN CORPUSCULAR HGB CONC 31.3 g/dl (31.0-37.0); MEAN PLATELET VOLUME 8.4 fl (7.0-11.0); MONO # 0.7 (0.1-0.6); MONO % 5.9 % (1.0-6.0); RBC 3.13 10^6/uL (3.5-6.1); RED CELL DISTRIBUTION WIDTH 16.4 % (11.5-14.5); WHITE BLOOD COUNT 12.6 10^3/ul (4.5-11.0)
[2017-11-07 06:52] LABS: ALB/GLOB RATIO 0.7 (1.1-1.8); ALBUMIN 2.5 g/dL (3.0-4.8); ALT/SGPT 17 U/L (7-56); AST/SGOT 30 U/L (14-36); BLOOD UREA NITROGEN 15 mg/dL (7-21); CALCIUM 8.3 mg/dL (8.4-10.5); GFR NON-AFRICAN AMERICAN > 60
--- NOTE | 2017-11-07 07:58 | CP.PCM.PN ---
<Blake Centeno - Last Filed: 11/07/17 13:08> Subjective - Date & Time of Evaluation Date of Evaluation: 11/07/17 Time of Evaluation: 07:54 - Subjective Subjective: PGY1 Medicine Note for Dr. Zuniga Patient seen and examined at bedside this morning. No acute events overnight. Patient has baseline dementia. She is resting comfortably in bed answering questions in yes/no only. No episodes of diarrhea overnight. She has no complaints at this time. Objective - Vital Signs/Intake and Output Vital Signs (last 24 hours): Temp Pulse Resp BP Pulse Ox 97.6 F 82 22 127/68 98 11/07/17 06:00 11/07/17 06:00 11/07/17 06:00 11/07/17 06:00 11/07/17 06:00 Intake and Output: 11/07/17 11/07/17 06:59 18:59 Intake Total 0 0 Output Total 200 200 Balance -200 -200 - Medications Medications: Current Medications Aspirin (Ecotrin) 81 mg PO DAILY [facility] Last Admin: 11/06/17 11:03 Dose: 81 mg Carbidopa/Levodopa (Sinemet Cr) 1 tab PO DAILY [facility] Last Admin: 11/06/17 11:03 Dose: 1 tab Collagenase (Santyl) 0 gm TOP DAILY [facility] Last Admin: 11/05/17 11:56 Dose: Not Given Piperacillin Sod/Tazobactam Sod (Zosyn 3.375 In Ns 100ml) 100 mls @ 200 mls/hr IVPB Q6 [facility] PRN Reason: Protocol Stop: 11/12/17 00:01 Last Admin: 11/07/17 05:39 Dose: 200 mls/hr Vancomycin HCl (Vancomycin 1gm) 1 gm in 250 mls @ 167 mls/hr IVPB Q12H [facility] PRN Reason: Protocol Last Admin: 11/07/17 04:45 Dose: 167 mls/hr Losartan Potassium (Cozaar) 50 mg PO DAILY [facility] Last Admin: 11/06/17 11:03 Dose: 50 mg Memantine (Namenda) 5 mg PO BID [facility] Last Admin: 11/06/17 18:18 Dose: 5 mg Multivitamins/Minerals (Therapeutic-M Tab) 1 tab PO 0800 [facility] Last Admin: 11/06/17 08:22 Dose: 1 tab Pantoprazole Sodium (Protonix Inj) 40 mg IVP DAILY [facility] Last Admin: 11/06/17 11:02 Dose: 40 mg Zinc Sulfate (Zinc Sulfate 220 Mg Cap) 220 mg PO DAILY [facility] Last Admin: 11/06/17 11:03 Dose: 220 mg - Labs Labs: 11/07/17 06:15 11/07/17 06:15 PT 14.4 SECONDS (9.4-12.5) H 11/05/17 06:00 INR 1.25 (0.93-1.08) H 11/05/17 06:00 APTT 33.5 Seconds (25.1-36.5) 11/04/17 19:00 - Constitutional Appears: Non-toxic, No Acute Distress - Head Exam Head Exam: ATRAUMATIC, NORMOCEPHALIC - Eye Exam Eye Exam: EOMI, Normal appearance - ENT Exam ENT Exam: Mucous Membranes Moist - Neck Exam Neck Exam: absent: Lymphadenopathy, Tenderness - Respiratory Exam Respiratory Exam: Clear to Ausculation Bilateral, NORMAL BREATHING PATTERN. absent: Accessory Muscle Use, Rales, Rhonchi, Wheezes - Cardiovascular Exam Cardiovascular Exam: REGULAR RHYTHM, +S1, +S2 - GI/Abdominal Exam GI & Abdominal Exam: Soft, Normal Bowel Sounds. absent: Distended, Firm, Guarding, Rigid, Tenderness Additional comments: PEG tube in place, dressing is c/d/i - Exam Additional comments: cavazos cath in place - Extremities Exam Extremities Exam: Normal Inspection. absent: Calf Tenderness, Pedal Edema - Back Exam Additional comments: Left scapula lesion has dressing, c/d/i wound vac on chronic sacral decub. - Neurological Exam Neurological Exam: Alert, Awake, CN II-XII Intact, Oriented x3 - Psychiatric Exam Psychiatric exam: Normal Affect, Normal Mood - Skin Skin Exam: Dry, Warm Assessment and Plan - Assessment and Plan (Free Text) Assessment: 87 year old female with past medical history of Dementia, Parkinson's diseaes, HTN, HLD, TIA, chronic back pain, sacral ulcer, presents for diarrhea and increasing fatigue. Pt found to be septic, likely 2/2 to UTI. Plan: Sepsis: 2/2 likely UTI vs less likely intraabominal (C diff vs bacterial/viral gastroenteritis) vs infected sacral ulcer/left scapula lesion - General surgery consulted, Dr. Guzman - help appreciated - lactate trended down. - leukocytosis improving, afebrile. - No further episodes of diarrhea since admission. monitor. send for c diff/ stool culture - discussed with nursing staff. - Chronic sacral wound with wound vac in place, Surgery on board. - Wound vac changed 11/06 - UA showing positive leuk est, nitrate - Urine Culture - Proteus Mirabilis - resistant to many different antibiotics - Blood cultures - negative at 24 hours - Sputum culture - negative at 24 hour - Wound cultures - positive for Gram Neg Dawson - awaiting sensitivity - C. Diff - negative - f/u stool studies - ID consult, Dr. Salinas - help appreciated, follow up recs - Vanco 1gm IVPB q12h - Zosyn 3.375gm IVPB q6h Hx of Parkinsons - continue home meds HTN - Continue home meds DVT ppx: SCDs GI PPX: Protonix Palliative Care Consulted Dispo: Patient has a poor prognosis. Patient will need IV antibiotics for a period of time due to sensitivities. Will await sensitivity of wound culture prior to dispo recommendations. Will follow ID recommendations Case discussed with Dr. Efrain Centeno PGY1 <Aldair Zuniga - Last Filed: 11/07/17 15:37> Objective - Vital Signs/Intake and Output Vital Signs (last 24 hours): Temp Pulse Resp BP Pulse Ox 97.6 F 82 22 127/68 98 11/07/17 06:00 11/07/17 06:00 11/07/17 06:00 11/07/17 06:00 11/07/17 06:00 Intake and Output: 11/07/17 11/07/17 06:59 18:59 Intake Total 0 0 Output Total 200 350 Balance -200 -350 - Medications Medications: Current Medications Aspirin (Ecotrin) 81 mg PO DAILY [facility] Last Admin: 11/07/17 10:55 Dose: 81 mg Carbidopa/Levodopa (Sinemet Cr) 1 tab PO DAILY [facility] Last Admin: 11/07/17 10:55 Dose: 1 tab Collagenase (Santyl) 0 gm TOP DAILY [facility] Last Admin: 11/07/17 10:56 Dose: Not Given Piperacillin Sod/Tazobactam Sod (Zosyn 3.375 In Ns 100ml) 100 mls @ 200 mls/hr IVPB Q6 [facility] PRN Reason: Protocol Stop: 11/12/17 00:01 Last Admin: 11/07/17 11:01 Dose: 200 mls/hr Losartan Potassium (Cozaar) 50 mg PO DAILY [facility] Last Admin: 11/07/17 10:55 Dose: 50 mg Memantine (Namenda) 5 mg PO BID [facility] Last Admin: 11/07/17 10:55 Dose: 5 mg Multivitamins/Minerals (Therapeutic-M Tab) 1 tab PO 0800 [facility] Last Admin: 11/07/17 10:55 Dose: 1 tab Pantoprazole Sodium (Protonix Inj) 40 mg IVP DAILY [facility] Last Admin: 11/07/17 10:55 Dose: 40 mg Zinc Sulfate (Zinc Sulfate 220 Mg Cap) 220 mg PO DAILY [facility] Last Admin: 11/07/17 10:55 Dose: 220 mg - Labs Labs: 11/07/17 06:15 11/07/17 06:15 PT 14.4 SECONDS (9.4-12.5) H 11/05/17 06:00 INR 1.25 (0.93-1.08) H 11/05/17 06:00 APTT 33.5 Seconds (25.1-36.5) 11/04/17 19:00 Attending/Attestation - Attestation I have personally seen and examined this patient.: Yes I have fully participated in the care of the patient.: Yes I have reviewed all pertinent clinical information, including history, physical exam and plan: Yes Notes (Text): 11/07/17 15:34 attending note; Patient seen and examined with resident. Patient is a 87 year old female with past medical history of dementia, Parkinson 's disease, hypertension and sacral ulcer with wound vac presented with diarrhea and fatigue. She was admitted for sepsis with UTI. currently on IV vancomycin and Zosyn. Blood cultures negative so far. C. difficile is negative. Diarrhea resolved. urine culture is positive for Proteus. wound culture is growing gram-negative rods. Case discussed with ID in detail. We will plan to arrange for IV Invanz 1 g every 24 hours for 7 days. Continue PEG tube feeding. wound VAC changed. Patient recently completed 6 weeks of IV meropenem. Surgery is also following for chronic sacral ulcer with wound vac care. prognosis is poor. Case discussed with social media manager in detail for discharge planning. patient is not eligible for [facility] or LTAC. upon discharge the patient will follow-up with Dr. Desouza.
--- NOTE | 2017-11-07 08:31 | CP.PCM.PN ---
<JadSarah - Last Filed: 11/07/17 08:32> Subjective - Date & Time of Evaluation Date of Evaluation: 11/07/17 Time of Evaluation: 07:30 - Subjective Subjective: PGY1 Surgical Progress Note for Dr. Guzman Patient seen and examined at bedside. Per nursing staff, no acute events overnight. Patient resting comfortably. Denies any pain, fever, or chills. Objective - Vital Signs/Intake and Output Vital Signs (last 24 hours): Temp Pulse Resp BP Pulse Ox 97.6 F 82 22 127/68 98 11/07/17 06:00 11/07/17 06:00 11/07/17 06:00 11/07/17 06:00 11/07/17 06:00 Intake and Output: 11/07/17 11/07/17 06:59 18:59 Intake Total 0 0 Output Total 200 200 Balance -200 -200 - Medications Medications: Current Medications Aspirin (Ecotrin) 81 mg PO DAILY [facility] Last Admin: 11/06/17 11:03 Dose: 81 mg Carbidopa/Levodopa (Sinemet Cr) 1 tab PO DAILY [facility] Last Admin: 11/06/17 11:03 Dose: 1 tab Collagenase (Santyl) 0 gm TOP DAILY [facility] Last Admin: 11/05/17 11:56 Dose: Not Given Piperacillin Sod/Tazobactam Sod (Zosyn 3.375 In Ns 100ml) 100 mls @ 200 mls/hr IVPB Q6 [facility] PRN Reason: Protocol Stop: 11/12/17 00:01 Last Admin: 11/07/17 05:39 Dose: 200 mls/hr Vancomycin HCl (Vancomycin 1gm) 1 gm in 250 mls @ 167 mls/hr IVPB Q12H [facility] PRN Reason: Protocol Last Admin: 11/07/17 04:45 Dose: 167 mls/hr Losartan Potassium (Cozaar) 50 mg PO DAILY [facility] Last Admin: 11/06/17 11:03 Dose: 50 mg Memantine (Namenda) 5 mg PO BID [facility] Last Admin: 11/06/17 18:18 Dose: 5 mg Multivitamins/Minerals (Therapeutic-M Tab) 1 tab PO 0800 [facility] Last Admin: 11/06/17 08:22 Dose: 1 tab Pantoprazole Sodium (Protonix Inj) 40 mg IVP DAILY [facility] Last Admin: 11/06/17 11:02 Dose: 40 mg Zinc Sulfate (Zinc Sulfate 220 Mg Cap) 220 mg PO DAILY [facility] Last Admin: 11/06/17 11:03 Dose: 220 mg - Labs Labs: 11/07/17 06:15 11/07/17 06:15 PT 14.4 SECONDS (9.4-12.5) H 11/05/17 06:00 INR 1.25 (0.93-1.08) H 11/05/17 06:00 APTT 33.5 Seconds (25.1-36.5) 11/04/17 19:00 - Constitutional Appears: Non-toxic, No Acute Distress, Chronically Ill - Eye Exam Eye Exam: Normal appearance - ENT Exam ENT Exam: Mucous Membranes Moist - Respiratory Exam Respiratory Exam: NORMAL BREATHING PATTERN - Cardiovascular Exam Cardiovascular Exam: RRR - GI/Abdominal Exam GI & Abdominal Exam: Soft. absent: Tenderness Additional comments: G-tube in place; feeds stopped overnight, resumed later in the day - Neurological Exam Neurological Exam: Alert, Awake - Skin Additional comments: Wound vac dressing in place, appropriate seal and vacuum pressure Assessment and Plan - Assessment and Plan (Free Text) Assessment: 87F with chronic sacral wound Plan: Wound vac dressing changed yesterday; no further surgical intervention at this time Discussed with wound care nurse for continued dressing changes q2-3 days Continue antibiotics per ID PRN pain medication Do not remove exoderm dressing from scapula Discussed with Dr. Megan Street, PGY1 <Edilson Guzman - Last Filed: 11/11/17 19:27> Objective - Vital Signs/Intake and Output Vital Signs (last 24 hours): Temp Pulse Resp BP Pulse Ox 97.5 F L 80 20 139/78 99 11/08/17 14:00 11/08/17 14:00 11/08/17 14:00 11/08/17 14:00 11/08/17 14:00 - Labs Labs: 11/08/17 07:20 11/08/17 07:20 PT 14.4 SECONDS (9.4-12.5) H 11/05/17 06:00 INR 1.25 (0.93-1.08) H 11/05/17 06:00 APTT 33.5 Seconds (25.1-36.5) 11/04/17 19:00 Attending/Attestation - Attestation I have fully participated in the care of the patient.: Yes I have reviewed all pertinent clinical information, including history, physical exam and plan: Yes Notes (Text): Pt with Sacral decubitus ulcer Wound vac is on No acute surgical intervention required c.w current mx Plan d.w primary team lisa as out pt
[2017-11-07] MEDS: Multivitamin With Minerals Tab PO SCH (10:55)
[2017-11-07] MEDS: Carbidopa/Levodopa 50/200 CR PO SCH (10:55)
[2017-11-07] MEDS: Collagenase 250 Units/gm Ointment(30 gm) TOP SCH (10:56)
--- NOTE | 2017-11-07 12:08 | CP.PCM.PN ---
Subjective - Date & Time of Evaluation Date of Evaluation: 11/07/17 Time of Evaluation: 10:05 - Subjective Subjective: Comfortable in bed, arousable, but sleepy, no fevers, no diarrhea currently. Objective - Vital Signs/Intake and Output Vital Signs (last 24 hours): Temp Pulse Resp BP Pulse Ox 99 F 82 18 124/76 96 11/06/17 22:45 11/06/17 22:45 11/06/17 22:45 11/06/17 22:45 11/06/17 22:45 Intake and Output: 11/06/17 11/07/17 18:59 06:59 Intake Total 0 0 Output Total 100 200 Balance -100 -200 - Medications Medications: Current Medications Aspirin (Ecotrin) 81 mg PO DAILY [facility] Last Admin: 11/06/17 11:03 Dose: 81 mg Carbidopa/Levodopa (Sinemet Cr) 1 tab PO DAILY [facility] Last Admin: 11/06/17 11:03 Dose: 1 tab Collagenase (Santyl) 0 gm TOP DAILY [facility] Last Admin: 11/05/17 11:56 Dose: Not Given Piperacillin Sod/Tazobactam Sod (Zosyn 3.375 In Ns 100ml) 100 mls @ 200 mls/hr IVPB Q6 [facility] PRN Reason: Protocol Stop: 11/12/17 00:01 Last Admin: 11/07/17 05:39 Dose: 200 mls/hr Vancomycin HCl (Vancomycin 1gm) 1 gm in 250 mls @ 167 mls/hr IVPB Q12H [facility] PRN Reason: Protocol Last Admin: 11/07/17 04:45 Dose: 167 mls/hr Losartan Potassium (Cozaar) 50 mg PO DAILY [facility] Last Admin: 11/06/17 11:03 Dose: 50 mg Memantine (Namenda) 5 mg PO BID [facility] Last Admin: 11/06/17 18:18 Dose: 5 mg Multivitamins/Minerals (Therapeutic-M Tab) 1 tab PO 0800 [facility] Last Admin: 11/06/17 08:22 Dose: 1 tab Pantoprazole Sodium (Protonix Inj) 40 mg IVP DAILY [facility] Last Admin: 11/06/17 11:02 Dose: 40 mg Zinc Sulfate (Zinc Sulfate 220 Mg Cap) 220 mg PO DAILY [facility] Last Admin: 11/06/17 11:03 Dose: 220 mg - Labs Labs: 11/07/17 06:15 11/07/17 06:15 PT 14.4 SECONDS (9.4-12.5) H 11/05/17 06:00 INR 1.25 (0.93-1.08) H 11/05/17 06:00 APTT 33.5 Seconds (25.1-36.5) 11/04/17 19:00 - Constitutional Appears: Chronically Ill - Head Exam Head Exam: NORMAL INSPECTION - Neck Exam Neck Exam: absent: Meningismus - Respiratory Exam Respiratory Exam: Decreased Breath Sounds - Cardiovascular Exam Cardiovascular Exam: +S1, +S2 - GI/Abdominal Exam GI & Abdominal Exam: Soft. absent: Tenderness Additional comments: wound vacuum over sacral wound in place Assessment and Plan - Assessment and Plan (Free Text) Plan: Assessment sepsis due to sacral decubitus ulcer growing gram negative bacilli, as well as UTI with Proteus R/O recurrent aspiration diarrhea, probably antibiotic associated Parkinson's disease history of TIA HTN dyslipidemia decubitus ulcer dementia history of eyelid surgery Plan continue Zosyn pending final wound cx results; Proteus in urine is only sensitive to Zosyn, Carbapenems follow up plans of Surgery for the sacral wound - patient has had 4-6 weeks of antibiotics for the ulcer earlier this year stool for C. diff. is negative overall prognosis is poor - should consider hospice
[2017-11-07 21:29] VITALS: RESP 20
[2017-11-08] MEDS: Piperacillin/Tazobact 3.375 gm 100 ML IVPB SCH ×2 (05:27→12:06)
[2017-11-08 07:47] LABS: BASO # 0.02 K/mm3 (0.0-2.0); BASO % 0.2 % (0.0-3.0); EOS # 0.6 (0.0-0.7); EOS % 4.6 % (1.5-5.0); GRAN # 8.76 (1.4-6.5); GRAN % 68.9 % (50.0-68.0); HEMOGLOBIN 8.7 g/dL (12.0-16.0); LYMPH # 2.7 (1.2-3.4); LYMPH % 21.2 % (22.0-35.0); MEAN CORPUSCULAR HEMOGLOBIN 26.6 pg (25.0-35.0); MEAN CORPUSCULAR HGB CONC 31.3 g/dl (31.0-37.0); MEAN PLATELET VOLUME 8.4 fl (7.0-11.0); MONO # 0.7 (0.1-0.6); MONO % 5.1 % (1.0-6.0); RBC 3.27 10^6/uL (3.5-6.1); RED CELL DISTRIBUTION WIDTH 16.3 % (11.5-14.5); WHITE BLOOD COUNT 12.7 10^3/ul (4.5-11.0)
[2017-11-08 07:58] LABS: ALB/GLOB RATIO 0.7 (1.1-1.8); ALBUMIN 2.7 g/dL (3.0-4.8); ALT/SGPT 40 U/L (7-56); AST/SGOT 85 U/L (14-36); BLOOD UREA NITROGEN 16 mg/dL (7-21); CALCIUM 8.4 mg/dL (8.4-10.5); GFR NON-AFRICAN AMERICAN > 60
[2017-11-08] MEDS: Multivitamin With Minerals Tab PO SCH (08:17)
[2017-11-08] MEDS: Carbidopa/Levodopa 50/200 CR PO SCH (10:59)
[2017-11-08] MEDS: Collagenase 250 Units/gm Ointment(30 gm) TOP SCH (11:00)
--- NOTE | 2017-11-08 12:40 | CP.PCM.CON ---
History of Present Illness - History of Present Illness History of Present Illness: Palliative consult requested by Dr Anni Zuniga Reason:Goals of care 87 year old female with hsitory of dementia, Parkinson disease, HTN, DM, ,TIA and sacral ulcer who presented with acute diarrhea, somnolence and weakness Family denies fever, chills,shortness of breath, abdominal pain, nausea, vomiting or headache. Labs; Wbc 16.3, Hgb 9.2, PLT 509, Albumin 2.7. Urine positive for protein, nitrate, blood and leukocytes. Micro; Wound gram negative rods, Urine positive for Proteus Mirabilis. Chest x ray showed cardiomegaly, no other disease. PMHx: dementia, Parkinson's disease, TIA, HTN, DM, HLD, chronic low back pain, sacral ulcer with wound vac, C Diff, UTI's, bedbound Social History: Never smoker, no alcohol or drug use. Lives with family, recently discharged from [facility] Family History: Non contributory. Advance Care Planning: The pait has an Advanced Directive. Her son Zack is POA. Review of Systems: As per HPI, patient unable to participate in review due to AMS. Past Patient History - Infectious Disease Hx of Infectious Diseases: None - Past Social History Smoking Status: Never Smoked Alcohol: None Drugs: Denies Home Situation {Lives}: With Family - CARDIAC Hx Pacemaker: No - PULMONARY Hx Respiratory Disorders: No - NEUROLOGICAL Hx Neurological Disorder: Yes Hx Parkinson's Disease: Yes - HEENT Hx HEENT Problems: Yes (eyeglasses) Other/Comment: eye sx fatty tissue removed from both eyelids - RENAL Hx Chronic Kidney Disease: No - ENDOCRINE/METABOLIC Hx Endocrine Disorders: No - HEMATOLOGICAL/ONCOLOGICAL Hx Cancer: No - INTEGUMENTARY Hx Dermatological Problems: No - MUSCULOSKELETAL/RHEUMATOLOGICAL Hx Falls: No - GASTROINTESTINAL Hx Diarrhea: Yes - GENITOURINARY/GYNECOLOGICAL Hx Genitourinary Disorders: No - PSYCHIATRIC Hx Psychophysiologic Disorder: No Hx Substance Use: No - SURGICAL HISTORY Hx Mastectomy: No - ANESTHESIA Hx Anesthesia Reactions: No Hx Malignant Hyperthermia: No Meds Home Medications: Home Medication List Medication Instructions Recorded Confirmed Type Ertapenem 1gm in NS 50ml [Invanz] 1 gm IV DAILY #7 bag 11/08/17 Rx Allergies/Adverse Reactions: Allergies Allergy/AdvReac Type Severity Reaction Status Date / Time No Known Allergies Allergy Verified 11/04/17 18:10 - Medications Medications: Current Medications Aspirin (Ecotrin) 81 mg PO DAILY [facility] Last Admin: 11/08/17 10:59 Dose: 81 mg Carbidopa/Levodopa (Sinemet Cr) 1 tab PO DAILY [facility] Last Admin: 11/08/17 10:59 Dose: 1 tab Collagenase (Santyl) 0 gm TOP DAILY [facility] Last Admin: 11/08/17 11:00 Dose: Not Given Losartan Potassium (Cozaar) 50 mg PO DAILY [facility] Last Admin: 11/08/17 10:59 Dose: 50 mg Memantine (Namenda) 5 mg PO BID [facility] Last Admin: 11/08/17 10:59 Dose: 5 mg Multivitamins/Minerals (Therapeutic-M Tab) 1 tab PO 0800 [facility] Last Admin: 11/08/17 08:17 Dose: 1 tab Pantoprazole Sodium (Protonix Inj) 40 mg IVP DAILY [facility] Last Admin: 11/08/17 10:59 Dose: 40 mg Zinc Sulfate (Zinc Sulfate 220 Mg Cap) 220 mg PO DAILY [facility] Last Admin: 11/08/17 10:59 Dose: 220 mg Physical Exam - Constitutional Appears: Chronically Ill - Head Exam Head Exam: NORMOCEPHALIC - Eye Exam Eye Exam: Normal appearance Additional comments: fat deposits around both eyes - ENT Exam ENT Exam: Mucous Membranes Moist - Neck Exam Neck exam: Positive for: Normal Inspection - Respiratory Exam Respiratory Exam: Decreased Breath Sounds, NORMAL BREATHING PATTERN - Cardiovascular Exam Cardiovascular Exam: +S1, +S2 - GI/Abdominal Exam GI & Abdominal Exam: Normal Bowel Sounds, Soft - Exam Additional comments: incontinence - Back Exam Additional comments: wound vac to sacral decubiti - Neurological Exam Neurological exam: Altered - Skin Skin Exam: Dry - Additional Findings Additional findings: Palaitve performance scale rating 30 % Results - Vital Signs Recent Vital Signs: Last Vital Signs Temp 97 F L 11/08/17 06:00 Pulse 88 11/08/17 10:59 Resp 20 11/08/17 06:00 BP 145/76 11/08/17 10:59 Pulse Ox 96 11/08/17 06:00 - Labs Result Diagrams: 11/08/17 07:20 11/08/17 07:20 Labs: Laboratory Results - last 24 hr 11/07/17 11/07/17 11/08/17 15:41 21:11 06:13 WBC RBC Hgb Hct MCV MCH MCHC RDW Plt Count MPV Gran % Lymph % (Auto) [place] % (Auto) Eos % (Auto) Baso % (Auto) Gran # Lymph # (Auto) [place] # (Auto) Eos # (Auto) Baso # (Auto) Sodium Potassium Chloride Carbon Dioxide Anion Gap BUN Creatinine Est GFR ( Amer) Est GFR (Non-Af Amer) POC Glucose (mg/dL) 139 H 138 H 132 H Random Glucose Calcium Total Bilirubin AST ALT Alkaline Phosphatase Total Protein Albumin Globulin Albumin/Globulin Ratio 11/08/17 11/08/17 11/08/17 07:20 07:20 10:49 WBC 12.7 H RBC 3.27 L Hgb 8.7 L Hct 27.8 L MCV 85.0 MCH 26.6 MCHC 31.3 RDW 16.3 H Plt Count 601 H MPV 8.4 Gran % 68.9 H Lymph % (Auto) 21.2 L [place] % (Auto) 5.1 Eos % (Auto) 4.6 Baso % (Auto) 0.2 Gran # 8.76 H Lymph # (Auto) 2.7 [place] # (Auto) 0.7 H Eos # (Auto) 0.6 Baso # (Auto) 0.02 Sodium 147 Potassium 4.3 Chloride 112 H Carbon Dioxide 28 Anion Gap 11 BUN 16 Creatinine 0.5 L Est GFR ( Amer) > 60 Est GFR (Non-Af Amer) > 60 POC Glucose (mg/dL) 103 Random Glucose 120 H Calcium 8.4 Total Bilirubin < 0.1 L AST 85 H D ALT 40 Alkaline Phosphatase 80 Total Protein 6.5 Albumin 2.7 L Globulin 3.8 Albumin/Globulin Ratio 0.7 L Assessment & Plan - Assessment and Plan (Free Text) Assessment: 87 year old female with multiple comorbidities(see PMH) wh was admitted with sepsis, UTI, diarrhea and sacral wound. The patient and family are known to me from multiple previous admissions.The patient has an Advanced Directive which stipulates that life prolonging measures be withheld when the patient is deemed to be terminal or her condition is irreversible. The patient's son Zack is her POA. During past family meetings Zack was very clear in stating that he wants his mother to receive medical treatment. Family was not interested in hospice care. I spoke with Zack via phone today. As per our prior conversations, Zack affirms he does not want to institute DNR/DNI nor does he want hospice care. His mother is scheduled for discharge home today with visiting nurse services Time spent in goals of care discussion, 20 minutes Plan: Discharge home with VNS services Sacral wound: Ertapenem IV at home 4-6 weeks per ID. wound care.
[2017-11-08 14:53] VITALS: BP 139/78; PULSE 80; TEMP 97.5; O2SAT 99
--- NOTE | 2017-11-08 15:55 | CP.PCM.DIS ---
<Blake Centeno - Last Filed: 11/08/17 15:43> Provider - Provider Date of Admission: 11/04/17 21:18 Attending physician: Artemio Nieves MD Consults: Palliative Surg - [facility] ID - Rita Time Spent in preparation of Discharge (in minutes): 75 Hospital Course - Lab Results Lab Results: Micro Results 11/05/17 17:35 Stool Stool Culture - Final NO SALMONELLA, SHIGELLA OR CAMPYLOBACTER ISOLATED. 11/05/17 17:35 Stool C. difficile Antigen & Toxin A,B (M - Final 11/05/17 17:35 Stool Ova and Parasite Concentrate Exam - Final 11/06/17 05:20 Sacral Gram Stain - Final 11/06/17 05:20 Sacral Wound Culture - Preliminary Gram Negative Dawson Most Recent Lab Values WBC 12.7 10^3/ul (4.5-11.0) H 11/08/17 07:20 RBC 3.27 10^6/uL (3.5-6.1) L 11/08/17 07:20 Hgb 8.7 g/dL (12.0-16.0) L 11/08/17 07:20 Hct 27.8 % (36.0-48.0) L 11/08/17 07:20 MCV 85.0 fl (80.0-105.0) 11/08/17 07:20 MCH 26.6 pg (25.0-35.0) 11/08/17 07:20 MCHC 31.3 g/dl (31.0-37.0) 11/08/17 07:20 RDW 16.3 % (11.5-14.5) H 11/08/17 07:20 Plt Count 601 10^3/uL (120.0-450.0) H 11/08/17 07:20 MPV 8.4 fl (7.0-11.0) 11/08/17 07:20 Gran % 68.9 % (50.0-68.0) H 11/08/17 07:20 Lymph % (Auto) 21.2 % (22.0-35.0) L 11/08/17 07:20 [place] % (Auto) 5.1 % (1.0-6.0) 11/08/17 07:20 Eos % (Auto) 4.6 % (1.5-5.0) 11/08/17 07:20 Baso % (Auto) 0.2 % (0.0-3.0) 11/08/17 07:20 Gran # 8.76 (1.4-6.5) H 11/08/17 07:20 Lymph # (Auto) 2.7 (1.2-3.4) 11/08/17 07:20 [place] # (Auto) 0.7 (0.1-0.6) H 11/08/17 07:20 Eos # (Auto) 0.6 (0.0-0.7) 11/08/17 07:20 Baso # (Auto) 0.02 K/mm3 (0.0-2.0) 11/08/17 07:20 PT 14.4 SECONDS (9.4-12.5) H 11/05/17 06:00 INR 1.25 (0.93-1.08) H 11/05/17 06:00 APTT 33.5 Seconds (25.1-36.5) 11/04/17 19:00 pO2 122 mm/Hg (30-55) H 11/04/17 22:50 VBG pH 7.51 (7.32-7.43) H 11/04/17 22:50 VBG pCO2 40.0 (40-60) 11/04/17 22:50 VBG HCO3 31.9 mmol/l (21-28) H 11/04/17 22:50 VBG Total CO2 33.1 mmol.L (22-28) H 11/04/17 22:50 VBG O2 Sat (Calc) 99.8 % (40-65) H 11/04/17 22:50 VBG Base Excess 8.2 mmol/L (0.0-2.0) H 11/04/17 22:50 VBG Potassium 3.1 mmol/L (3.6-5.2) L 11/04/17 22:50 Sodium 136.0 mmol/L (132-148) 11/04/17 22:50 Chloride 103.0 mmol/L (98-107) 11/04/17 22:50 Glucose 137 mg/dl (65-105) H 11/04/17 22:50 Lactate 1.2 mmol/L (0.7-2.1) 11/04/17 22:50 FiO2 21.0 % 11/04/17 22:50 Sodium 147 mmol/L (132-148) 11/08/17 07:20 Potassium 4.3 mmol/L (3.6-5.0) 11/08/17 07:20 Chloride 112 mmol/L (98-107) H 11/08/17 07:20 Carbon Dioxide 28 mmol/L (21-33) 11/08/17 07:20 Anion Gap 11 (10-20) 11/08/17 07:20 BUN 16 mg/dL (7-21) 11/08/17 07:20 Creatinine 0.5 mg/dl (0.7-1.2) L 11/08/17 07:20 Est GFR ( Amer) > 60 11/08/17 07:20 Est GFR (Non-Af Amer) > 60 11/08/17 07:20 POC Glucose (mg/dL) 103 mg/dL (65-110) 11/08/17 10:49 Random Glucose 120 mg/dL (70-110) H 11/08/17 07:20 Calcium 8.4 mg/dL (8.4-10.5) 11/08/17 07:20 Phosphorus 2.1 mg/dL (2.5-4.5) L 11/04/17 19:00 Magnesium 1.8 mg/dL (1.7-2.2) 11/04/17 19:00 Total Bilirubin < 0.1 mg/dL (0.2-1.3) L 11/08/17 07:20 AST 85 U/L (14-36) H D 11/08/17 07:20 ALT 40 U/L (7-56) 11/08/17 07:20 Alkaline Phosphatase 80 U/L (38-126) 11/08/17 07:20 Troponin I < 0.01 ng/mL 11/04/17 19:00 Total Protein 6.5 g/dL (5.8-8.3) 11/08/17 07:20 Albumin 2.7 g/dL (3.0-4.8) L 11/08/17 07:20 Globulin 3.8 gm/dL 11/08/17 07:20 Albumin/Globulin Ratio 0.7 (1.1-1.8) L 11/08/17 07:20 Procalcitonin 0.13 NG/ML (0.19-0.49) L 11/04/17 19:00 Venous Blood Potassium 3.1 mmol/L (3.6-5.2) L 11/04/17 22:50 Urine Color Yellow (YELLOW) 11/04/17 20:35 Urine Appearance Cloudy (CLEAR) 11/04/17 20:35 Urine pH 7.5 (4.7-8.0) 11/04/17 20:35 Ur Specific [place] 1.020 (1.005-1.035) 11/04/17 20:35 Urine Protein 100 mg/dL (<30 mg/dL) H 11/04/17 20:35 Urine Glucose (UA) 500 mg/dL (NEGATIVE) H 11/04/17 20:35 Urine Ketones Negative mg/dL (NEGATIVE) 11/04/17 20:35 Urine Blood Large (NEGATIVE) H 11/04/17 20:35 Urine Nitrate Positive (NEGATIVE) H 11/04/17 20:35 Urine Bilirubin Negative (NEGATIVE) 11/04/17 20:35 Urine Urobilinogen 0.2 E.U./dL (<1 E.U./dL) 11/04/17 20:35 Ur Leukocyte Esterase Large Yoselyn/uL (NEGATIVE) H 11/04/17 20:35 Urine RBC Tntc /hpf (0-2) 11/04/17 20:35 Urine WBC Tntc /hpf (0-6) 11/04/17 20:35 Ur Epithelial Cells 10 - 12 /hpf (0-5) 11/04/17 20:35 Urine Bacteria Many (NEG) 11/04/17 20:35 - Hospital Course Hospital Course: As per admission documentation Patient is a 87 year old AA female with past medical history of Dementia, Parkinson's diseaes, HTN, HLD, TIA, chronic back pain, sacral ulcer who is brought in be her family with concern for acute diarrhea and increased fatigue. Patient is somnolent and with limited participation in interview. Family at bedside and provides majority of history. Patient was recently discharged from [facility] where she was for 100+ days after discharge from [facility] in 07/2017 for sepsis. Patient had been home for five days when she began to have diarrhea for the past 48 hours. Patient family reports patient wears diapers and that 2 days prior she had 3-4 episodes of loose stool and with in the past 24 hours she has had an increase in loose watery stool. Family described stool as liquid, yellow, without blood and some bubbling. Patient family states patient has not had any complaints of headache, chest pain, shortness of breath, abdominal pain, fever, chills, nausea, vomiting, weakness, focal deficits. Hospital Course Patient was admitted for diarrhea, weakness and Sepsis 2/2 to sacral decub. and UTI. Patient was found to have a UTI. Urine Culture - Proteus Mirabilis - sensitive only to Zosyn, Carbapenems. Sacral wound culture grew gram negative rods. Patient was treated for sacral decub in July 2017 with 4-6 weeks of antibiotics. Blood cultures were negative at 3 days. Patient did not have any episodes of diarrhea during her stay. Her mental status was baseline throughout her hospital stay. She was stable throughout her stay and was afebrile (outside of initial temp of 99.9 in ED). Surgery/Wound care states that sacral is greatly improved compared to her July Hospitalization and that the wound vac is working well. She was treated with vanco and zosyn during her in patient stay. She received a midline on 11/08 and received one dose of Ertapenem and was discharged home with the following instructions. Discharge Instructions 1. Patient is to be discharged home. 2. Continue Ertapenem for a complete 7 day course. 3. The wound vac must be continued on continuous 130mmHg suction and changed three times per week (M/W/). The wound has areas of foam that must be replaced during changes--the central wound over the sacrum with an extension laterally into the left buttock and inferiorly along the left gluteal fold 4. Take all medications as directed. 5. Follow up with PMD Dr. Desouza. 6. Continue peg tube feedings to 30 ml/hr with 200 cc flush q6h, goal is to advance to 45 ml/hr as tolerated. This is just a brief summary of the patient's hospital course. For full detail please see EMR. Physical Exam Appears: Non-toxic, No Acute Distress Head Exam: ATRAUMATIC, NORMOCEPHALIC Eye Exam: EOMI, Normal appearance ENT Exam: Mucous Membranes Moist Neck Exam: absent: Lymphadenopathy, Tenderness Respiratory Exam: Clear to Ausculation Bilateral, NORMAL BREATHING PATTERN. absent: Accessory Muscle Use, Rales, Rhonchi, Wheezes Cardiovascular Exam: REGULAR RHYTHM, +S1, +S2 GI & Abdominal Exam: Soft, Normal Bowel Sounds. absent: Distended, Firm, Guarding, Rigid, Tenderness Additional comments: PEG tube in place, dressing is c/d/i Exam: cavazos cath in place Extremities Exam: Normal Inspection. absent: Calf Tenderness, Pedal Edema Back Exam: Left scapula lesion has dressing, c/d/i; wound vac on chronic sacral decub. Neurological Exam: Alert, Awake, CN II-XII Intact, Oriented x3 Psychiatric exam: Normal Affect, Normal Mood Skin Exam: Dry, Warm Discharge Exam - Head Exam Head Exam: NORMOCEPHALIC Discharge Plan - Discharge Medications Prescriptions: Ertapenem 1gm in NS 50ml [Invanz] 1 gm IV DAILY #7 bag - Follow Up Plan Condition: FAIR Disposition: HOME/ ROUTINE Instructions: Sepsis in Adults, Wound Care (DC), Urinary Tract Infection in Women (DC), Cellulitis (DC), Leukocytosis (DC), Dysuria (GEN) Additional Instructions: 1. Patient is to be discharged home. 2. Continue Ertapenem for a complete 7 day course. 3. The wound vac must be continued on continuous 130mmHg suction and changed three times per week (M/W/). The wound has areas of foam that must be replaced during changes--the central wound over the sacrum with an extension laterally into the left buttock and inferiorly along the left gluteal fold 4. Take all medications as directed. 5. Follow up with PMD Dr. Desouza. 6. Continue peg tube feedings to 30 ml/hr with 200 cc flush q6h, goal is to advance to 45 ml/hr as tolerated. Referrals: [facility], [Non-Staff] - Codie Chowdary MD [Staff Provider] - <Aldair Zuniga - Last Filed: 11/08/17 16:06> Provider - Provider Date of Admission: 11/04/17 21:18 Attending physician: Artemio Nieves MD Hospital Course - Lab Results Lab Results: Micro Results 11/05/17 17:35 Stool Stool Culture - Final NO SALMONELLA, SHIGELLA OR CAMPYLOBACTER ISOLATED. 11/05/17 17:35 Stool C. difficile Antigen & Toxin A,B (M - Final 11/05/17 17:35 Stool Ova and Parasite Concentrate Exam - Final 11/06/17 05:20 Sacral Gram Stain - Final 11/06/17 05:20 Sacral Wound Culture - Preliminary Gram Negative Dawson Most Recent Lab Values WBC 12.7 10^3/ul (4.5-11.0) H 11/08/17 07:20 RBC 3.27 10^6/uL (3.5-6.1) L 11/08/17 07:20 Hgb 8.7 g/dL (12.0-16.0) L 11/08/17 07:20 Hct 27.8 % (36.0-48.0) L 11/08/17 07:20 MCV 85.0 fl (80.0-105.0) 11/08/17 07:20 MCH 26.6 pg (25.0-35.0) 11/08/17 07:20 MCHC 31.3 g/dl (31.0-37.0) 11/08/17 07:20 RDW 16.3 % (11.5-14.5) H 11/08/17 07:20 Plt Count 601 10^3/uL (120.0-450.0) H 11/08/17 07:20 MPV 8.4 fl (7.0-11.0) 11/08/17 07:20 Gran % 68.9 % (50.0-68.0) H 11/08/17 07:20 Lymph % (Auto) 21.2 % (22.0-35.0) L 11/08/17 07:20 [place] % (Auto) 5.1 % (1.0-6.0) 11/08/17 07:20 Eos % (Auto) 4.6 % (1.5-5.0) 11/08/17 07:20 Baso % (Auto) 0.2 % (0.0-3.0) 11/08/17 07:20 Gran # 8.76 (1.4-6.5) H 11/08/17 07:20 Lymph # (Auto) 2.7 (1.2-3.4) 11/08/17 07:20 [place] # (Auto) 0.7 (0.1-0.6) H 11/08/17 07:20 Eos # (Auto) 0.6 (0.0-0.7) 11/08/17 07:20 Baso # (Auto) 0.02 K/mm3 (0.0-2.0) 11/08/17 07:20 PT 14.4 SECONDS (9.4-12.5) H 11/05/17 06:00 INR 1.25 (0.93-1.08) H 11/05/17 06:00 APTT 33.5 Seconds (25.1-36.5) 11/04/17 19:00 pO2 122 mm/Hg (30-55) H 11/04/17 22:50 VBG pH 7.51 (7.32-7.43) H 11/04/17 22:50 VBG pCO2 40.0 (40-60) 11/04/17 22:50 VBG HCO3 31.9 mmol/l (21-28) H 11/04/17 22:50 VBG Total CO2 33.1 mmol.L (22-28) H 11/04/17 22:50 VBG O2 Sat (Calc) 99.8 % (40-65) H 11/04/17 22:50 VBG Base Excess 8.2 mmol/L (0.0-2.0) H 11/04/17 22:50 VBG Potassium 3.1 mmol/L (3.6-5.2) L 11/04/17 22:50 Sodium 136.0 mmol/L (132-148) 11/04/17 22:50 Chloride 103.0 mmol/L (98-107) 11/04/17 22:50 Glucose 137 mg/dl (65-105) H 11/04/17 22:50 Lactate 1.2 mmol/L (0.7-2.1) 11/04/17 22:50 FiO2 21.0 % 11/04/17 22:50 Sodium 147 mmol/L (132-148) 11/08/17 07:20 Potassium 4.3 mmol/L (3.6-5.0) 11/08/17 07:20 Chloride 112 mmol/L (98-107) H 11/08/17 07:20 Carbon Dioxide 28 mmol/L (21-33) 11/08/17 07:20 Anion Gap 11 (10-20) 11/08/17 07:20 BUN 16 mg/dL (7-21) 11/08/17 07:20 Creatinine 0.5 mg/dl (0.7-1.2) L 11/08/17 07:20 Est GFR ( Amer) > 60 11/08/17 07:20 Est GFR (Non-Af Amer) > 60 11/08/17 07:20 POC Glucose (mg/dL) 103 mg/dL (65-110) 11/08/17 10:49 Random Glucose 120 mg/dL (70-110) H 11/08/17 07:20 Calcium 8.4 mg/dL (8.4-10.5) 11/08/17 07:20 Phosphorus 2.1 mg/dL (2.5-4.5) L 11/04/17 19:00 Magnesium 1.8 mg/dL (1.7-2.2) 11/04/17 19:00 Total Bilirubin < 0.1 mg/dL (0.2-1.3) L 11/08/17 07:20 AST 85 U/L (14-36) H D 11/08/17 07:20 ALT 40 U/L (7-56) 11/08/17 07:20 Alkaline Phosphatase 80 U/L (38-126) 11/08/17 07:20 Troponin I < 0.01 ng/mL 11/04/17 19:00 Total Protein 6.5 g/dL (5.8-8.3) 11/08/17 07:20 Albumin 2.7 g/dL (3.0-4.8) L 11/08/17 07:20 Globulin 3.8 gm/dL 11/08/17 07:20 Albumin/Globulin Ratio 0.7 (1.1-1.8) L 11/08/17 07:20 Procalcitonin 0.13 NG/ML (0.19-0.49) L 11/04/17 19:00 Venous Blood Potassium 3.1 mmol/L (3.6-5.2) L 11/04/17 22:50 Urine Color Yellow (YELLOW) 11/04/17 20:35 Urine Appearance Cloudy (CLEAR) 11/04/17 20:35 Urine pH 7.5 (4.7-8.0) 11/04/17 20:35 Ur Specific [place] 1.020 (1.005-1.035) 11/04/17 20:35 Urine Protein 100 mg/dL (<30 mg/dL) H 11/04/17 20:35 Urine Glucose (UA) 500 mg/dL (NEGATIVE) H 11/04/17 20:35 Urine Ketones Negative mg/dL (NEGATIVE) 11/04/17 20:35 Urine Blood Large (NEGATIVE) H 11/04/17 20:35 Urine Nitrate Positive (NEGATIVE) H 11/04/17 20:35 Urine Bilirubin Negative (NEGATIVE) 11/04/17 20:35 Urine Urobilinogen 0.2 E.U./dL (<1 E.U./dL) 11/04/17 20:35 Ur Leukocyte Esterase Large Yoselyn/uL (NEGATIVE) H 11/04/17 20:35 Urine RBC Tntc /hpf (0-2) 11/04/17 20:35 Urine WBC Tntc /hpf (0-6) 11/04/17 20:35 Ur Epithelial Cells 10 - 12 /hpf (0-5) 11/04/17 20:35 Urine Bacteria Many (NEG) 11/04/17 20:35 Attending/Attestation - Attestation I have personally seen and examined this patient.: Yes I have fully participated in the care of the patient.: Yes I have reviewed all pertinent clinical information, including history, physical exam and plan: Yes Notes (Text): 11/08/17 16:04 attending note; Patient seen and examined with resident. Patient is a 87 year old female with past medical history of dementia, Parkinson 's disease, hypertension and sacral ulcer with wound vac presented with diarrhea and fatigue. She was admitted for sepsis with UTI. treated with IV vancomycin and Zosyn. currently on IV Invanz. ID evaluation appreciated. We will complete 7 more days of IV Invanz. Blood cultures negative so far. C. difficile is negative. Diarrhea resolved. urine culture is positive for Proteus. wound culture is growing gram-negative rods. Continue PEG tube feeding. wound VAC changed. Patient recently completed 6 weeks of IV meropenem. Surgery is also following for chronic sacral ulcer with wound vac care. prognosis is poor. Case discussed with social work coordinator in detail for discharge planning. Palliative care evaluation appreciated. Sons Zack is the healthcare proxy. He refused DNI DNR. He refused hospice. Prognosis is poor. Patient will be discharged home with home Services. support group manager evaluation appreciated. upon discharge the patient will follow-up with Dr. Desouza.
--- NOTE | 2017-11-08 19:50 | PN ---
DATE: 11/08/2017 SUBJECTIVE: The patient is seen earlier this morning in room 564, bed 1. No fevers, no chills. No abdominal pain. The patient had an uneventful night. PHYSICAL EXAMINATION: VITAL SIGNS: Temperature is 97, blood pressure is 145/70, respiratory rate of 20, heart rate of 88. HEENT: Unremarkable. NECK: Supple. LUNGS: Have decreased breath sounds. HEART: Normal S1 and S2. ABDOMEN: Soft, nontender. LABORATORY DATA: Reveals a white count of 12,700, hemoglobin of 8, platelets of 601. Chemistries are noted. BUN 16, creatinine of 0.5. Procalcitonin is 0.13. Urinalysis is noted. Microbiology reveals a Gram-negative parker from the sacrum, sensitivity is pending. Proteus mirabilis from the urine from 11/04/2017, with sensitivity to ertapenem, meropenem, amikacin. ASSESSMENT AND PLAN: This is an 87-year-old female who was seen early this morning in room 564, bed 1, with sepsis, sacral decubitus ulcer, and Proteus mirabilis urinary tract infection as the cause; on Zosyn, sensitive to carbapenem. Tammy Su's note is reviewed. Consultation, Dr. Zuniga's discharge summary is also reviewed. Case is discussed with the resident in charge of the case. The patient is to be discharged to go home on ertapenem 1 g every day as per discussion with the resident earlier today. Davy Casas MD
== END 2017-11-08 16:50 | disposition home health service (06) | DRG 872 ==
LOC: ED 18:01 → ERH 21:18 → 5RNO 11-05 00:33
PROVIDERS: ADMIT Internal Medicine; ATTEND Internal Medicine
PROC: 05HY33Z Insertion of Infusion Device into Upper Vein, Percutaneous Approach (ICD-10-PCS; principal; 2017-11-08)
DX: A41.9 Sepsis, unspecified organism (principal); L89.154 Pressure ulcer of sacral region, stage 4; N39.0 Urinary tract infection, site not specified; L02.212 Cutaneous abscess of back [any part, except buttock and flank]; B96.4 Proteus (mirabilis) (morganii) as the cause of diseases classified elsewhere; G20 Parkinson's disease; F03.90 Unspecified dementia, unspecified severity, without behavioral disturbance, psychotic disturbance, mood disturbance, and anxiety; E78.5 Hyperlipidemia, unspecified; E11.9 Type 2 diabetes mellitus without complications; Z86.73 Personal history of transient ischemic attack (TIA), and cerebral infarction without residual deficits; I11.9 Hypertensive heart disease without heart failure; I51.7 Cardiomegaly; Z93.1 Gastrostomy status; R40.2412 Glasgow coma scale score 13-15, at arrival to emergency department; R19.7 Diarrhea, unspecified; Z16.24 Resistance to multiple antibiotics; Z74.01 Bed confinement status; L89.152 Pressure ulcer of sacral region, stage 2

== ENCOUNTER 2018-07-08 16:07 | Inpatient (IN) | payer BC, MEDICARE ==
--- NOTE | 2018-07-08 16:27 | ED PDOC ---
Arrival/HPI - General Time Seen by Provider: 07/08/18 16:14 Historian: EMS EM Caveat: Dementia - History of Present Illness Narrative History of Present Illness (Text): 07/08/18 16:24 88 year old female, whose past medical history includes Dementia, Parkinson's disease, Hypertension, HLD, TIA, chronic back pain, sacral ulcer, presents to the emergency department via EMS for evaluation of low blood pressure and weakness. As per EMS, patient has a wound across her sacral area 2 months ago which was removed, but the area has been worsening. HPI and ROS limited due to patient's state of dementia. PMD: Dr. Brent Corral Past Medical History - Provider Review Nursing Documentation Reviewed: Yes - Past History Past History: No Previous - Infectious Disease Hx of Infectious Diseases: None - Cardiac Hx Pacemaker: No - Pulmonary Hx Respiratory Disorders: No - Neurological Hx Neurological Disorder: Yes Hx Parkinson's Disease: Yes - HEENT Hx HEENT Disorder: Yes (eyeglasses) Other/Comment: eye sx fatty tissue removed from both eyelids - Renal Hx Renal Disorder: No - Endocrine/Metabolic Hx Endocrine Disorders: No - Hematological/Oncological Hx Cancer: No - Integumentary Hx Dermatological Disorder: No - Musculoskeletal/Rheumatological Hx Falls: No - Gastrointestinal Hx Diarrhea: Yes - Genitourinary/Gynecological Hx Genitourinary Disorders: No - Psychiatric Hx Psychophysiologic Disorder: No Hx Substance Use: No - Surgical History Hx Mastectomy: No - Anesthesia Hx Anesthesia Reactions: No Hx Malignant Hyperthermia: No Family/Social History - Physician Review Nursing Documentation Reviewed: Yes Family/Social History: No Known Family HX Smoking Status: Never Smoked Hx Alcohol Use: No Hx Substance Use: No Allergies/Home Meds Allergies/Adverse Reactions: Allergies No Known Allergies Allergy (Verified 07/08/18 16:41) Home Medications: Home Meds Medication Instructions Recorded Confirmed RX: Carbidopa/Levodopa 50/200 CR 50 mg GT DAILY 10/08/15 11/04/17 [Sinemet CR] RX: Pantoprazole [Protonix EC Tab] 40 mg GT DAILY 08/07/17 07/08/18 Albuterol/Ipratropium [Duoneb 3 3 ml IH Q4 PRN 07/08/18 07/08/18 MG/3 Ml-0.5 MG/3 Ml 3 Ml] Ammonium Lactate [Skin Treatment] 225 gm TP 07/08/18 Atorvastatin [Lipitor] 20 mg GT DAILY 07/08/18 07/08/18 Carbidopa/Levodopa 1 each PO BID 07/08/18 [Carbidopa-Levodopa 25-100 Tab] Clopidogrel [Plavix] 75 mg GT DAILY 07/08/18 07/08/18 Collagenase [Santyl] 250 unit TP DAILY 07/08/18 07/08/18 Nystatin [Nystop] 100,000 unit TP 07/08/18 Promethazine HCl/Codeine 5 ml GT Q6 07/08/18 07/08/18 [Prometh-Codein 6.25-10 mg/5 ml] RX: Losartan [Cozaar] 50 mg GT DAILY 07/08/18 07/08/18 RX: Memantine [Namenda] 5 mg GT BID 07/08/18 07/08/18 RX: Omeprazole 10 mg GT DAILY 07/08/18 07/08/18 RX: Zinc [Zinc Sulfate 220 mg Cap] 50 mg GT DAILY 07/08/18 07/08/18 Tab A-Vit 1 tab GT DAILY 07/08/18 07/08/18 Review of Systems - Physician Review All systems were reviewed & negative as marked: Yes - Review of Systems Systems not reviewed;Unavailable: Dementia Physical Exam Vital Signs Reviewed: Yes Appearance: Positive for: Well-Appearing, Non-Toxic, Comfortable Pain Distress: None Mental Status: Positive for: other (Alert and orientedX 1 (self)) - Systems Exam Head: Present: Atraumatic, Normocephalic Pupils: Present: PERRL Extroacular Muscles: Present: EOMI Conjunctiva: Present: Normal Mouth: Present: Moist Mucous Membranes Neck: Present: Normal Range of Motion Respiratory/Chest: Present: Clear to Auscultation, Good Air Exchange. No: Respiratory Distress, Accessory Muscle Use Cardiovascular: Present: Regular Rate and Rhythm, Normal S1, S2. No: Murmurs Abdomen: Present: Feeding Tubes (G-Tube on abdomen), Other (indwelling cavazos with cloudy urine coming out). No: Tenderness, Distention, Peritoneal Signs Back: Present: Other (extensive sacral and buttocks wound ranges from Stage II to unstageable ) Upper Extremity: Present: Normal Inspection. No: Cyanosis, Edema Lower Extremity: Present: Normal Inspection. No: Edema Neurological: Present: GCS=15, CN II-XII Intact Skin: Present: Warm, Dry, Normal Color. No: Rashes Psychiatric: Present: Alert (and oritented x 1 (self)) Medical Decision Making ED Course and Treatment: 07/08/18 16:24 Impression: 88 year old female presents for evaluation of low blood pressure and weakness. Patient has a worsening sacral and buttocks wound. Plan: -- EKG -- Labs -- IV Fluids, Vancomycin, Zosyn -- Blood Culture, Urine Culture -- Urinalysis -- Reassess and disposition Prior Visits: Notes and results from previous visits were reviewed. Progress Notes: 07/08/18 16:25 EKG shows NSR at 94 BPM with normal intervals, normal axis, no ST elevation. Interpreted by ED physician. 07/08/18 17:02 Family at bedside verified reason for patient's visit. Patient given 30cc/kg NS bolus. Lab results reviewed- patient with leukocytosis, but lactate is normal. Patient with multiple possible sources of infection- UTI, pneumonia, or sacral wounds. Vanc and zosyn ivpb x1 dose each ordered for broad spectrum coverage. Blood cultures drawn prior to abx administration. 07/08/18 19:25 CXR Impression: As read by me, right lower lobe atelectasis vs infiltrates Will admit patient for further management of sepsis. 07/08/18 19:39 case discussed with medical service technician and Dr. Son who is aware and agrees with the plan. Accepts patient into hospitalist service. - Lab Interpretations I have reviewed the lab results: Yes - EKG Interpretation Interpreted by ED Physician: Yes Type: 12 lead EKG - Scribe Statement The provider has reviewed the documentation as recorded by the Buzz Jacobson Provider Scribe Attestation: All medical record entries made by the Buzz were at my direction and personally dictated by me. I have reviewed the chart and agree that the record accurately reflects my personal performance of the history, physical exam, medical decision making, and the department course for this patient. I have also personally directed, reviewed, and agree with the discharge instructions and disposition. Disposition/Present on Arrival - Present on Arrival Any Indicators Present on Arrival: Yes History of DVT/PE: No History of Uncontrolled Diabetes: No Urinary Catheter: Yes History Surgical Site Infection Following: None - Disposition Have Diagnosis and Disposition been Completed?: Yes Diagnosis: Sepsis, Sacral decubitus ulcer, stage IV, UTI (urinary tract infection) Disposition: HOSPITALIZED Disposition Time: 19:30 Condition: FAIR
[2018-07-08 16:41] VITALS: BMI 29.2
[2018-07-08] MEDS ORDERED: Sodium Chloride 0.9% 1,000 ML IV ONE (16:43)
[2018-07-08 16:57] LABS: BASO # 0.02 K/mm3 (0.0-2.0); BASO % 0.1 % (0.0-3.0); EOS % 0.1 % (1.5-5.0); GRAN # 21.54 (1.4-6.5); GRAN % 87.3 % (50.0-68.0); HEMOGLOBIN 9.7 g/dL (12.0-16.0); LYMPH # 2.4 (1.2-3.4); LYMPH % 9.6 % (22.0-35.0); MEAN CELL VOLUME 79.2 fl (80.0-105.0); MEAN CORPUSCULAR HEMOGLOBIN 26.1 pg (25.0-35.0); MEAN PLATELET VOLUME 8.1 fl (7.0-11.0); MONO # 0.7 (0.1-0.6); MONO % 2.9 % (1.0-6.0); RBC 3.71 10^6/uL (3.5-6.1); RED CELL DISTRIBUTION WIDTH 15.2 % (11.5-14.5); WHITE BLOOD COUNT 24.7 10^3/uL (4.5-11.0)
[2018-07-08 16:59] LABS: VENOUS BLOOD GAS BASE EXCESS 13.3 mmol/L (0.0-2.0); VENOUS BLOOD GAS PO2 46 mm/Hg (30-55); VENOUS BLOOD PH 7.47 (7.32-7.43)
[2018-07-08] MEDS ORDERED: Sodium Chloride 0.9% 1,000 ML IV STA (17:12)
[2018-07-08] MEDS ORDERED: Piperacillin/Tazobact 3.375 gm 100 ML IVPB STA (17:22)
[2018-07-08] MEDS ORDERED: Vancomycin 1gm in NS 250ml 1 GM/250 ML BAG IVPB STA (17:22)
[2018-07-08 18:37] LABS: BLOOD UREA NITROGEN 13 mg/dL (7-21)
[2018-07-08 18:38] LABS: ALB/GLOB RATIO 0.7 (1.1-1.8); ALBUMIN 2.4 g/dL (3.0-4.8); ALT/SGPT 21 U/L (7-56); AST/SGOT 41 U/L (14-36); CALCIUM 7.7 mg/dL (8.4-10.5); GFR NON-AFRICAN AMERICAN > 60
[2018-07-08 18:50] LABS: PH,URINE 6.5 (4.7-8.0); URINE BILIRUBIN NEGATIVE (NEGATIVE); URINE BLOOD SMALL (NEGATIVE); URINE GLUCOSE (UA) NEGATIVE (NEGATIVE); URINE LEUKOCYTE ESTERASE LARGE Leu/uL (NEGATIVE); URINE PROTEIN NEGATIVE mg/dL (<30 mg/dL); URINE UROBILINOGEN 0.2 E.U./dL (<1 E.U./dL)
[2018-07-08 18:53] LABS: URINE APPEARANCE CLOUDY (CLEAR); URINE COLOR YELLOW (YELLOW)
[2018-07-08 19:04] LABS: URINE BACTERIA FEW /hpf; URINE WBC 15 - 20 /hpf (0-6)
[2018-07-08] MEDS ORDERED: Vitamins A & D Oint UD Foilpak TOP PRN (21:14)
[2018-07-08] MEDS ORDERED: Magnesium Sulfate 2 gm/50 ml 2 GM/50 ML BAG IVPB ONE (21:14)
[2018-07-08] MEDS ORDERED: Albuterol-Ipratrop 3 mg / 0.5 (3 ml) UD IH PRN (21:39)
--- NOTE | 2018-07-08 22:58 | CP.PCM.HP ---
History of Present Illness - History of Present Illness History of Present Illness: Internal Medicine H&P (Hospitalist's Service) CC: Weakness/Hypotension/SDU/UTI HPI: Mrs. Caldwell is an 88 year old female with a past medical history significant for Parkinson's Disease, Unspecified Dementia, HTN, HLD, TIA, chronic back pain, and multiple SDU's who presented with increased fatigue and confusion for the past several days. Patient is accompanied by her family with whom she lives. Patient is alert and oriented to person and place but HPI is supplemented by family members. According to them, patient is bed bound and intermittently disoriented at baseline. Patient has been more confused and somnolent over the course of the past few days, which was noticed by the family. Although patient is intermittently disoriented at baseline, this has become more frequent during the past few days. Patient has also been noted to have slept most of the day for the past week, which is well above her normal eight hours of sleep per night approximately. Patient and family deny any inciting event or any recent changes in her routine or medications. They do report that she has skin ulcers on her shoulders, collar bones and sacrum but that these have been present for several weeks. Patient is currently without any complaints and denies any fevers, chills, headache, new dysphagia, neck pain/stiffness, chest pain, SOB, abdominal pain, N/V/D/C, changes in urine output, or any new numbness/tingling of any extremity. PMH: As stated above PSH: Eyelid Surgery Family History: Noncontributory Social History: Denies any tobacco, alcohol or illicit drug use; Lives at home with family; [employer] three times/week and home PT two times/week; Bed bound Allergies: NKDA Home Medications: Reviewed; As per AUG PMD: Dr. Desouza Pharmacy: [facility] Present on Admission - Present on Admission Any Indicators Present on Admission: Yes Decubitus Ulcer Present: Yes Review of Systems - Review of Systems Review of Systems: As stated in HPI, otherwise negative Past Patient History - Infectious Disease Hx of Infectious Diseases: None - Past Social History Smoking Status: Never Smoked - CARDIAC Hx Pacemaker: No - PULMONARY Hx Respiratory Disorders: No - NEUROLOGICAL Hx Neurological Disorder: Yes Hx Parkinson's Disease: Yes - HEENT Hx HEENT Problems: Yes (eyeglasses) Other/Comment: eye sx fatty tissue removed from both eyelids - RENAL Hx Chronic Kidney Disease: No - ENDOCRINE/METABOLIC Hx Endocrine Disorders: No - HEMATOLOGICAL/ONCOLOGICAL Hx Cancer: No - INTEGUMENTARY Hx Dermatological Problems: No - MUSCULOSKELETAL/RHEUMATOLOGICAL Hx Falls: No - GASTROINTESTINAL Hx Gastrointestinal Disorders: No - GENITOURINARY/GYNECOLOGICAL Hx Genitourinary Disorders: No - PSYCHIATRIC Hx Psychophysiologic Disorder: No - SURGICAL HISTORY Hx Mastectomy: No - ANESTHESIA Hx Anesthesia Reactions: No Hx Malignant Hyperthermia: No Meds Allergies/Adverse Reactions: Allergies Allergy/AdvReac Type Severity Reaction Status Date / Time No Known Allergies Allergy Verified 07/08/18 16:41 Physical Exam - Constitutional Appears: No Acute Distress, Confused, Chronically Ill - Head Exam Head Exam: ATRAUMATIC, NORMOCEPHALIC - Eye Exam Eye Exam: EOMI, Normal appearance, PERRL - ENT Exam ENT Exam: Mucous Membranes Dry - Neck Exam Additional comments: Approximately 2cm circular abrasion to right clavicular region with reciprocal ulceration of the soft tissue of the neck - Respiratory Exam Respiratory Exam: Clear to Auscultation Bilateral, NORMAL BREATHING PATTERN. absent: Accessory Muscle Use, Decreased Breath Sounds, Respiratory Distress - Cardiovascular Exam Cardiovascular Exam: REGULAR RHYTHM - GI/Abdominal Exam GI & Abdominal Exam: Normal Bowel Sounds, Soft. absent: Tenderness Additional comments: G-Tube present without any signs of clinical infection of surrounding soft tissues; Noted to have black appearing residue along the interior of the tubing - Extremities Exam Extremities exam: Positive for: normal capillary refill. Negative for: calf tenderness, joint swelling, pedal edema, tenderness Additional comments: Area of erythema to the most distal portion of the first digit of the LLE without any open skin wounds - Back Exam Additional comments: Multiple SDU's ranging from stage III to unstageable - Neurological Exam Neurological exam: Alert - Psychiatric Exam Psychiatric exam: Normal Affect, Normal Mood - Skin Skin Exam: Dry, Warm Results - Vital Signs Recent Vital Signs: Last Vital Signs Temp 97.9 F 07/08/18 16:15 Pulse 85 07/08/18 21:10 Resp 18 07/08/18 22:20 BP 101/57 L 07/08/18 21:10 Pulse Ox 98 07/08/18 21:20 - Labs Result Diagrams: 07/08/18 16:49 07/08/18 17:15 Labs: Laboratory Results - last 24 hr 07/08/18 07/08/18 07/08/18 16:49 16:49 17:15 WBC 24.7 H RBC 3.71 Hgb 9.7 L Hct 29.4 L MCV 79.2 L D MCH 26.1 MCHC 33.0 RDW 15.2 H Plt Count 667 H MPV 8.1 Gran % 87.3 H Lymph % (Auto) 9.6 L [place] % (Auto) 2.9 Eos % (Auto) 0.1 L Baso % (Auto) 0.1 Gran # 21.54 H Lymph # (Auto) 2.4 [place] # (Auto) 0.7 H Eos # (Auto) 0.0 Baso # (Auto) 0.02 pO2 46 VBG pH 7.47 H VBG pCO2 54.0 VBG HCO3 39.3 H VBG Total CO2 41.0 H VBG O2 Sat (Calc) 85.2 H VBG Base Excess 13.3 H VBG Potassium 4.5 Sodium 125.0 L 126 L Chloride 90.0 L 88 L D Glucose 134 H Lactate 1.7 FiO2 21.0 Potassium 2.9 L* D Carbon Dioxide 32 Anion Gap 9 L BUN 13 Creatinine 0.4 L Est GFR ( Amer) > 60 Est GFR (Non-Af Amer) > 60 Random Glucose 130 H Calcium 7.7 L Phosphorus 2.8 Magnesium 1.5 L Total Bilirubin 0.4 AST 41 H D ALT 21 Alkaline Phosphatase 117 Total Protein 5.8 Albumin 2.4 L Globulin 3.4 Albumin/Globulin Ratio 0.7 L Venous Blood Potassium 4.5 Urine Color Urine Appearance Urine pH Ur Specific [place] Urine Protein Urine Glucose (UA) Urine Ketones Urine Blood Urine Nitrate Urine Bilirubin Urine Urobilinogen Ur Leukocyte Esterase Urine RBC Urine WBC Ur Epithelial Cells Urine Bacteria 07/08/18 18:43 WBC RBC Hgb Hct MCV MCH MCHC RDW Plt Count MPV Gran % Lymph % (Auto) [place] % (Auto) Eos % (Auto) Baso % (Auto) Gran # Lymph # (Auto) [place] # (Auto) Eos # (Auto) Baso # (Auto) pO2 VBG pH VBG pCO2 VBG HCO3 VBG Total CO2 VBG O2 Sat (Calc) VBG Base Excess VBG Potassium Sodium Chloride Glucose Lactate FiO2 Potassium Carbon Dioxide Anion Gap BUN Creatinine Est GFR ( Amer) Est GFR (Non-Af Amer) Random Glucose Calcium Phosphorus Magnesium Total Bilirubin AST ALT Alkaline Phosphatase Total Protein Albumin Globulin Albumin/Globulin Ratio Venous Blood Potassium Urine Color Yellow Urine Appearance Cloudy Urine pH 6.5 Ur Specific [place] <= 1.005 Urine Protein Negative Urine Glucose (UA) Negative Urine Ketones Negative Urine Blood Small H Urine Nitrate Negative Urine Bilirubin Negative Urine Urobilinogen 0.2 Ur Leukocyte Esterase Large H Urine RBC 1 - 3 H Urine WBC 15 - 20 H Ur Epithelial Cells 1 - 3 Urine Bacteria Few Assessment & Plan - Assessment and Plan (Free Text) Assessment: 88 year old female with a past medical history significant for Parkinson's Disease, Unspecified Dementia, HTN, HLD, TIA, chronic back pain, and multiple SDU's who presented with increased fatigue and confusion for the past several days. Plan: 1. Severe Sepsis -Noted to be hypotensive, tachypneic and with leukocytosis -Likely secondary to UTI and/or SDU -Chest X-Ray pending official radiologist interpretation -S/P 4L NS in ED -Empiric Vancomycin and Zosyn (Day 1) -Normal Saline at 100mls/hr -Blood, Urine and Wound cultures pending -ID consulted, all recommendations appreciated 2. Multiple SDU's -Empiric antiobiotics as above -Air Mattress Machine -Turn and Reposition Q2H -Wound Care Referral -Surgery consulted, all recommendations appreciated 3. Hypokalemia -Potassium at 2.9 on admission -Two Potassium Riders 20meq IVPB -Will continue to monitor with daily CMP's 4. Hypomagnesemia -Magnesium at 1.5 on admission -Magnesium Sulfate 2gm IVPB once 5. History of Dysphagia -Continue to use PEG for medications -NPO Diet pending [facility] dysphagia evaluation -Dietitian Referral 6. History of Dementia -Continue home Namenda GT 7. History of HLD -Continue home Lipitor GT 8. History of TIA -Continue home Plavix GT 9. History of HTN -Holding home Cozaar in setting of hypotension GI Prophylaxis: Pepcid DVT Prophylaxis: Lovenox Diet: NPO Code Status: Full Code Patient seen and case discussed with attending, Dr. Ricky Ruiz. Carlos Manuel Matthews PGY2 - Date & Time Date: 07/08/18 Time: 22:54
[2018-07-08] MEDS: Sodium Chloride 0.9% 1,000 ML IV SCH (23:01)
[2018-07-08] MEDS: Piperacillin/Tazobact 3.375 gm 100 ML IVPB SCH (23:34)
[2018-07-09] MEDS: Piperacillin/Tazobact 3.375 gm 100 ML IVPB SCH (05:00)
[2018-07-09] MEDS: Vancomycin 1gm in NS 250ml 1 GM/250 ML BAG IVPB SCH ×2 (05:00→18:10)
--- NOTE | 2018-07-09 06:03 | CP.PCM.CON ---
History of Present Illness - History of Present Illness History of Present Illness: Surgery Consult Note- Dr. Norman Reason for consult: Sacral Decubitus Ulcer 88F pmhx significant for Parkinson's Disease, Unspecified Dementia, HTN, HLD, TIA, chronic back pain, and multiple SDU's who presented with increased fatigue and confusion for the past several days. Patient is accompanied by her family with whom she lives. Patient is alert and oriented to person and place but HPI is supplemented by family members. Patient is bed bound and intermittently disoriented at baseline. Patient has been more confused and somnolent over the course of the past few days, which was noticed by the family. Although patient is intermittently disoriented at baseline, this has become more frequent during the past few days. Patient has also been noted to have slept most of the day for the past week, which is well above her normal eight hours of sleep per night approximately. Patient was found to have large necrotic decubiti, surgery was subsequently consulted. Of note: patient had wound vac on last january that helped with the recover of her previous sacral ulcer. 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; Bed bound FH: Noncontributory Review of Systems - Review of Systems All systems: reviewed and no additional remarkable complaints except - Constitutional Constitutional: As Per HPI Past Patient History - Infectious Disease Hx of Infectious Diseases: None - Past Social History Smoking Status: Never Smoked - CARDIAC Hx Pacemaker: No - PULMONARY Hx Respiratory Disorders: No - NEUROLOGICAL Hx Neurological Disorder: Yes Hx Parkinson's Disease: Yes - HEENT Hx HEENT Problems: Yes (eyeglasses) Other/Comment: eye sx fatty tissue removed from both eyelids - RENAL Hx Chronic Kidney Disease: No - ENDOCRINE/METABOLIC Hx Endocrine Disorders: No - HEMATOLOGICAL/ONCOLOGICAL Hx Cancer: No - INTEGUMENTARY Hx Dermatological Problems: No - MUSCULOSKELETAL/RHEUMATOLOGICAL Hx Falls: No - GASTROINTESTINAL Hx Gastrointestinal Disorders: No - GENITOURINARY/GYNECOLOGICAL Hx Genitourinary Disorders: No - PSYCHIATRIC Hx Psychophysiologic Disorder: No - SURGICAL HISTORY Hx Mastectomy: No - ANESTHESIA Hx Anesthesia Reactions: No Hx Malignant Hyperthermia: No Meds Allergies/Adverse Reactions: Allergies Allergy/AdvReac Type Severity Reaction Status Date / Time No Known Allergies Allergy Verified 07/08/18 16:41 - Medications Medications: Current Medications Albuterol/Ipratropium (Duoneb 3 Mg/0.5 Mg (3 Ml) Ud) 3 ml IH Q4 PRN PRN Reason: Wheezing Atorvastatin Calcium (Lipitor) 20 mg GT DAILY [facility] Clopidogrel Bisulfate (Plavix) 75 mg GT DAILY [facility] Enoxaparin Sodium (Lovenox) 30 mg SC DAILY [facility]; Protocol Famotidine (Pepcid) 20 mg IVP DAILY [facility] Sodium Chloride (Sodium Chloride 0.9%) 1,000 mls @ 100 mls/hr IV .Q10H [facility] Last Admin: 07/08/18 23:01 Dose: 100 mls/hr Vancomycin HCl (Vancomycin 1gm) 1 gm in 250 mls @ 167 mls/hr IVPB Q12H [facility]; Protocol Last Admin: 07/09/18 05:00 Dose: 167 mls/hr Piperacillin Sod/Tazobactam Sod (Zosyn 3.375 In Ns 100ml) 100 mls @ 200 mls/hr IVPB Q6 [facility]; Protocol Stop: 07/09/18 06:29 Last Admin: 07/09/18 05:00 Dose: 200 mls/hr Losartan Potassium (Cozaar) 50 mg GT DAILY [facility] Memantine (Namenda) 5 mg GT BID [facility] Vitamin A (Vitamin A & D Oint Ud Foilpak) 1 ea TOP Q2 PRN PRN Reason: Dry mouth Zinc Sulfate (Zinc Sulfate 220 Mg Cap) 220 mg GT DAILY [facility] Physical Exam - Constitutional Appears: No Acute Distress, Chronically Ill - Head Exam Head Exam: ATRAUMATIC - Eye Exam Eye Exam: absent: Scleral icterus - ENT Exam ENT Exam: Mucous Membranes Moist - Respiratory Exam Respiratory Exam: NORMAL BREATHING PATTERN. absent: Accessory Muscle Use, Respiratory Distress - Cardiovascular Exam Cardiovascular Exam: REGULAR RHYTHM. absent: Bradycardia, Tachycardia - GI/Abdominal Exam GI & Abdominal Exam: Soft. absent: Distended, Firm, Guarding, Tenderness - Rectal Exam Additional comments: Ulcer not involving rectum - Extremities Exam Additional comments: Unstagable sacral decubitus ulcer extending bilateral approx 8cm to the left and right - Neurological Exam Neurological exam: Altered - Psychiatric Exam Psychiatric exam: Normal Affect - Skin Skin Exam: Intact, Warm Results - Vital Signs Recent Vital Signs: Last Vital Signs Temp 98.7 F 07/09/18 00:01 Pulse 73 07/09/18 02:00 Resp 18 07/09/18 00:01 BP 126/78 07/09/18 00:01 Pulse Ox 92 L 07/09/18 00:01 - Labs Result Diagrams: 07/08/18 16:49 07/08/18 17:15 Labs: Laboratory Results - last 24 hr 07/08/18 07/08/18 07/08/18 16:49 16:49 17:15 WBC 24.7 H RBC 3.71 Hgb 9.7 L Hct 29.4 L MCV 79.2 L D MCH 26.1 MCHC 33.0 RDW 15.2 H Plt Count 667 H MPV 8.1 Gran % 87.3 H Lymph % (Auto) 9.6 L [place] % (Auto) 2.9 Eos % (Auto) 0.1 L Baso % (Auto) 0.1 Gran # 21.54 H Lymph # (Auto) 2.4 [place] # (Auto) 0.7 H Eos # (Auto) 0.0 Baso # (Auto) 0.02 pO2 46 VBG pH 7.47 H VBG pCO2 54.0 VBG HCO3 39.3 H VBG Total CO2 41.0 H VBG O2 Sat (Calc) 85.2 H VBG Base Excess 13.3 H VBG Potassium 4.5 Sodium 125.0 L 126 L Chloride 90.0 L 88 L D Glucose 134 H Lactate 1.7 FiO2 21.0 Potassium 2.9 L* D Carbon Dioxide 32 Anion Gap 9 L BUN 13 Creatinine 0.4 L Est GFR ( Amer) > 60 Est GFR (Non-Af Amer) > 60 Random Glucose 130 H Calcium 7.7 L Phosphorus 2.8 Magnesium 1.5 L Total Bilirubin 0.4 AST 41 H D ALT 21 Alkaline Phosphatase 117 Total Protein 5.8 Albumin 2.4 L Globulin 3.4 Albumin/Globulin Ratio 0.7 L Venous Blood Potassium 4.5 Urine Color Urine Appearance Urine pH Ur Specific [place] Urine Protein Urine Glucose (UA) Urine Ketones Urine Blood Urine Nitrate Urine Bilirubin Urine Urobilinogen Ur Leukocyte Esterase Urine RBC Urine WBC Ur Epithelial Cells Urine Bacteria 07/08/18 18:43 WBC RBC Hgb Hct MCV MCH MCHC RDW Plt Count MPV Gran % Lymph % (Auto) [place] % (Auto) Eos % (Auto) Baso % (Auto) Gran # Lymph # (Auto) [place] # (Auto) Eos # (Auto) Baso # (Auto) pO2 VBG pH VBG pCO2 VBG HCO3 VBG Total CO2 VBG O2 Sat (Calc) VBG Base Excess VBG Potassium Sodium Chloride Glucose Lactate FiO2 Potassium Carbon Dioxide Anion Gap BUN Creatinine Est GFR ( Amer) Est GFR (Non-Af Amer) Random Glucose Calcium Phosphorus Magnesium Total Bilirubin AST ALT Alkaline Phosphatase Total Protein Albumin Globulin Albumin/Globulin Ratio Venous Blood Potassium Urine Color Yellow Urine Appearance Cloudy Urine pH 6.5 Ur Specific [place] <= 1.005 Urine Protein Negative Urine Glucose (UA) Negative Urine Ketones Negative Urine Blood Small H Urine Nitrate Negative Urine Bilirubin Negative Urine Urobilinogen 0.2 Ur Leukocyte Esterase Large H Urine RBC 1 - 3 H Urine WBC 15 - 20 H Ur Epithelial Cells 1 - 3 Urine Bacteria Few Assessment & Plan - Assessment and Plan (Free Text) Assessment: 88F w/ unstagable sacral decubitus ulcer measuring approx [id number] Plan: - Dakins solution - turn q2 - air mattress - will need medical clearance and optimization for debridement - further recs [facility] Dr. [facility]
[2018-07-09] MEDS: Meropenem IV 1 gm in NS 1 GM/50 ML BAG IVPB SCH ×4 (06:41→21:47)
[2018-07-09 07:47] LABS: ALB/GLOB RATIO 0.6 (1.1-1.8); ALBUMIN 1.9 g/dL (3.0-4.8); ALT/SGPT 30 U/L (7-56); AST/SGOT 32 U/L (14-36); BLOOD UREA NITROGEN 8 mg/dL (7-21); CALCIUM 7.3 mg/dL (8.4-10.5); GFR NON-AFRICAN AMERICAN > 60
[2018-07-09 09:07] LABS: BASO # 0.01 K/mm3 (0.0-2.0); EOS % 0.1 % (1.5-5.0); GRAN # 19.37 (1.4-6.5); GRAN % 89.3 % (50.0-68.0); HEMOGLOBIN 8.9 g/dL (12.0-16.0); LYMPH # 1.7 (1.2-3.4); LYMPH % 7.9 % (22.0-35.0); MEAN CELL VOLUME 79.1 fl (80.0-105.0); MEAN CORPUSCULAR HEMOGLOBIN 25.8 pg (25.0-35.0); MEAN CORPUSCULAR HGB CONC 32.6 g/dl (31.0-37.0); MEAN PLATELET VOLUME 7.6 fl (7.0-11.0); MONO # 0.6 (0.1-0.6); MONO % 2.7 % (1.0-6.0); RBC 3.45 10^6/uL (3.5-6.1); RED CELL DISTRIBUTION WIDTH 14.9 % (11.5-14.5); WHITE BLOOD COUNT 21.7 10^3/uL (4.5-11.0)
--- NOTE | 2018-07-09 09:42 | RAD ---
Date of service: 07/08/2018 HISTORY: Sepsis Patient COMPARISON: 11/04/2017 FINDINGS: LUNGS: There is a linear infiltrate at the right lung base. This probably represents an area of atelectasis PLEURA: No significant pleural effusion identified, no pneumothorax apparent. CARDIOVASCULAR: Aortic calcification Normal cardiac size. No pulmonary vascular congestion. OSSEOUS STRUCTURES: No significant abnormalities. VISUALIZED UPPER ABDOMEN: Normal. OTHER FINDINGS: None. IMPRESSION: There is a linear infiltrate at the right lung base. This probably represents an area of atelectasis
[2018-07-09] MEDS: Dakin's Topical 0.25%-Half Strength (480 ml) TOP SCH (09:53)
[2018-07-09] MEDS: Enoxaparin 30 mg Syringe SC SCH (10:08)
--- NOTE | 2018-07-09 13:09 | CP.PCM.PN ---
<Unruly Artis - Last Filed: 07/09/18 19:26> Subjective - Date & Time of Evaluation Date of Evaluation: 07/09/18 Time of Evaluation: 08:00 - Subjective Subjective: Unruly Artis, PGY1 Medicine Progress Note for Dr. Nieves Patient was seen and examined at bedside this morning. Patient denies cp, sob, abdominal pain. Further ROS was unable to be obtained since patient is a poor historian. She is AAOx1 to person only. No adverse overnight events. Vital signs are stable. Objective - Vital Signs/Intake and Output Vital Signs (last 24 hours): Temp Pulse Resp BP Pulse Ox 98.3 F 95 H 18 95/58 L 94 L 07/09/18 12:00 07/09/18 12:00 07/09/18 12:00 07/09/18 12:00 07/09/18 06:00 Intake and Output: 07/09/18 07/09/18 06:59 18:59 Intake Total 0 Output Total 550 Balance -550 - Medications Medications: Current Medications Albuterol/Ipratropium (Duoneb 3 Mg/0.5 Mg (3 Ml) Ud) 3 ml IH Q4 PRN PRN Reason: Wheezing Atorvastatin Calcium (Lipitor) 20 mg GT DAILY [facility] Last Admin: 07/09/18 09:59 Dose: Not Given Clopidogrel Bisulfate (Plavix) 75 mg GT DAILY [facility] Last Admin: 07/09/18 10:01 Dose: Not Given Enoxaparin Sodium (Lovenox) 30 mg SC DAILY [facility]; Protocol Last Admin: 07/09/18 10:08 Dose: 30 mg Famotidine (Pepcid) 20 mg IVP DAILY [facility] Sodium Chloride (Sodium Chloride 0.9%) 1,000 mls @ 100 mls/hr IV .Q10H [facility] Last Admin: 07/08/18 23:01 Dose: 100 mls/hr Vancomycin HCl (Vancomycin 1gm) 1 gm in 250 mls @ 167 mls/hr IVPB Q12H [facility]; Protocol Last Admin: 07/09/18 05:00 Dose: 167 mls/hr Meropenem (Merrem Iv 1 Gm Premix) 1 gm in 50 mls @ 100 mls/hr IVPB Q8 [facility]; Protocol Last Admin: 07/09/18 06:41 Dose: 100 mls/hr Losartan Potassium (Cozaar) 50 mg GT DAILY [facility] Memantine (Namenda) 5 mg GT BID [facility] Last Admin: 07/09/18 10:00 Dose: Not Given Sodium Hypochlorite (Dakins Solution 0.25%) 0 ml TOP DAILY [facility] Last Admin: 07/09/18 09:53 Dose: 1 mg Vitamin A (Vitamin A & D Oint Ud Foilpak) 1 ea TOP Q2 PRN PRN Reason: Dry mouth Last Admin: 07/09/18 10:03 Dose: 1 ea Zinc Sulfate (Zinc Sulfate 220 Mg Cap) 220 mg GT DAILY [facility] Last Admin: 07/09/18 10:02 Dose: Not Given - Labs Labs: 07/09/18 08:40 07/09/18 07:00 - Constitutional Appears: No Acute Distress - Head Exam Head Exam: ATRAUMATIC, NORMAL INSPECTION, NORMOCEPHALIC - Eye Exam Eye Exam: EOMI - ENT Exam ENT Exam: Mucous Membranes Moist - Respiratory Exam Respiratory Exam: Clear to Ausculation Bilateral. absent: Rales, Rhonchi, Wheezes - Cardiovascular Exam Cardiovascular Exam: RRR, +S1, +S2 Additional comments: Circular abrasion 3 cm at the right clavicular region. - GI/Abdominal Exam GI & Abdominal Exam: Soft, Normal Bowel Sounds. absent: Distended, Guarding, Rigid, Tenderness, Mass, Organomegaly Additional comments: G-tube is present. Black drainage is noted. - Extremities Exam Extremities Exam: Normal Capillary Refill. absent: Calf Tenderness, Joint Swelling, Pedal Edema - Neurological Exam Neurological Exam: Alert, Awake. absent: Oriented x3 - Skin Skin Exam: Dry, Intact, Normal Color, Warm - Additional Findings Additional findings: Sacral decubitis ulcer - Stage 5. 18 x12 cm. Purulent drainage is noted. Assessment and Plan - Assessment and Plan (Free Text) Assessment: Patient is a 88 y/o F with PMHx significant for Parkinson's Disease, Unspecified Dementia, HTN, HLD, TIA, chronic back pain, and multiple Sacral Decubitus ulcers who presented with increased fatigue and confusion for the past several days. Plan: Severe Sepsis 2/2 UTI vs Sacral Wound Infection - Leukocytosis trending downwards 21.7 from 24.7; remains afebrile. BP is 95/58 at this time. - c/w Vancomycin and Merrem as per ID recs - c/w NS IVF at 100mls/hr - f/u Blood, Urine and Wound cultures - UA: large LE, wbc 15-20 - CXR (07/08): linear infiltrate at the right lung base. Likely represents area of atelectasis. - Hypotensive, tachypneic and with leukocytosis in the ED. Recieved 4 L NS in the ED and started on empiric antibiotics - ID consulted, recs appreciated. Multiple Sacral Decubitus Ulcers with Large Stage 5 Sacral Ulcer - Surgery is on consult; plan is for tentative debridement and PEG tube replacement for tomorrow - c/w empiric antibiotics as per ID recs - c/w Air Mattress - c/w frequent turns and repositioning - Wound Care Referral Hx of Dysphagia with PEG in place - Surgical team is planning to replace PEG tube tomorrow - PEG is draining dark black residue - NPO Diet - S/S eval Electrolyte abnormalities Hypokalemia and Hypomagnesemia - resolved - K is now 3.6 after repletion via x2 K-riders; 2.9 on admission - Mg is 1.8 after repletion with Mg sulfate; 1.5 on admission AMS with Hx of Dementia - currently AAOx1 - c/w home Namenda GT Hx of HLD - c/w home Lipitor GT Hx of TIA - c/w home Plavix GT Hx of HTN - Holding home Cozaar in setting of hypotension GI Prophylaxis: Pepcid DVT Prophylaxis: Lovenox Diet: NPO Code Status: Full Code Palliative care is on board Dispo: Continue to monitor patient on telemetry. Palliative care is on consult. Tentative plan for sacral wound ulcer debridement and PEG tube replacement tomorrow as per surgery. Case was discussed and reviewed with Attending Physician, Dr. Nieves <Artemio Nieves - Last Filed: 07/10/18 06:50> Objective - Vital Signs/Intake and Output Vital Signs (last 24 hours): Temp Pulse Resp BP Pulse Ox 98 F 80 18 103/55 L 100 07/10/18 06:00 07/10/18 06:00 07/10/18 06:00 07/10/18 06:00 07/10/18 06:00 Intake and Output: 07/09/18 07/10/18 18:59 06:59 Intake Total 850 0 Output Total 601 775 Balance 249 -775 - Medications Medications: Current Medications Albuterol/Ipratropium (Duoneb 3 Mg/0.5 Mg (3 Ml) Ud) 3 ml IH Q4 PRN PRN Reason: Wheezing Atorvastatin Calcium (Lipitor) 20 mg GT DAILY [facility] Last Admin: 07/09/18 09:59 Dose: Not Given Clopidogrel Bisulfate (Plavix) 75 mg GT DAILY [facility] Last Admin: 07/09/18 10:01 Dose: Not Given Enoxaparin Sodium (Lovenox) 30 mg SC DAILY [facility]; Protocol Last Admin: 07/09/18 10:08 Dose: 30 mg Famotidine (Pepcid) 20 mg IVP DAILY [facility] Last Admin: 07/09/18 15:09 Dose: 20 mg Sodium Chloride (Sodium Chloride 0.9%) 1,000 mls @ 100 mls/hr IV .Q10H [facility] Last Admin: 07/10/18 04:32 Dose: 100 mls/hr Vancomycin HCl (Vancomycin 1gm) 1 gm in 250 mls @ 167 mls/hr IVPB Q12H [facility]; Protocol Last Admin: 07/10/18 05:15 Dose: 167 mls/hr Meropenem (Merrem Iv 1 Gm Premix) 1 gm in 50 mls @ 100 mls/hr IVPB Q8 [facility]; Protocol Last Admin: 07/10/18 05:00 Dose: 100 mls/hr Losartan Potassium (Cozaar) 50 mg GT DAILY [facility] Memantine (Namenda) 5 mg GT BID [facility] Last Admin: 07/09/18 18:01 Dose: Not Given Sodium Hypochlorite (Dakins Solution 0.25%) 0 ml TOP DAILY [facility] Last Admin: 07/09/18 09:53 Dose: 1 mg Vitamin A (Vitamin A & D Oint Ud Foilpak) 1 ea TOP Q2 PRN PRN Reason: Dry mouth Last Admin: 07/09/18 10:03 Dose: 1 ea Zinc Sulfate (Zinc Sulfate 220 Mg Cap) 220 mg GT DAILY [facility] Last Admin: 07/09/18 10:02 Dose: Not Given - Labs Labs: 07/09/18 08:40 07/09/18 07:00 Attending/Attestation - Attestation I have personally seen and examined this patient.: Yes I have fully participated in the care of the patient.: Yes I have reviewed all pertinent clinical information, including history, physical exam and plan: Yes Notes (Text): 07/09/18 88 year old female with past medical history of Parkinson's disease, dementia, hypertension, TIA, s/p PEG and multiple sacral decubitus ulcers who presented with sepsis likely secondary to UTI and sacral decubitus ulcers. Continue with iv antibiotics as per ID. Will follow up on cultures. Leukocyotosis is slightly improving. Procalcitonin is elevated. Surgery is also following and plan is for possible debridement and PEG tube replacement tomorrow. Palliative care evaluation was appreciated as well. Overall prognosis is guarded. Artemio Nieves MD Hospitalist.
--- NOTE | 2018-07-09 14:01 | CP.PCM.CON ---
<Pierce Ortiz - Last Filed: 07/09/18 13:56> History of Present Illness - History of Present Illness History of Present Illness: Infectious disease consult note: 88 year old female with a PMHx significant for Parkinson's Disease, dementia, HTN, HLD, TIA, chronic back pain, and multiple sacral decubiti who presented with increased fatigue and confusion. As per prior notes and patients family the patient is disoriented at baseline however is increasingly more confused over the past few days. ROS is limited however the patient denies fevers, chills, headaches, chest pain, SOB, abdominal pain, N/V/D/C. 12 Point ROS performed however limited 2/2 patients mental status PMH: As above PSH: Eyelid Surgery Family History: Deneis Social History: Denies any tobacco, alcohol or illicit drug use; Lives at home with family; Bed bound Allergies: NKDA Review of Systems - Review of Systems All systems: reviewed and no additional remarkable complaints except Past Patient History - Infectious Disease Hx of Infectious Diseases: None - Past Social History Smoking Status: Never Smoked - CARDIAC Hx Hypertension: Yes - PULMONARY Hx Respiratory Disorders: No - NEUROLOGICAL HX Cerebrovascular Accident: Yes (TIA) - HEENT Hx HEENT Problems: Yes (eyeglasses) Other/Comment: eye sx fatty tissue removed from both eyelids - RENAL Hx Chronic Kidney Disease: No - ENDOCRINE/METABOLIC Hx Endocrine Disorders: No - HEMATOLOGICAL/ONCOLOGICAL Hx Cancer: No - INTEGUMENTARY Hx Dermatological Problems: No - MUSCULOSKELETAL/RHEUMATOLOGICAL Hx Falls: No - GASTROINTESTINAL Hx Gastrointestinal Disorders: No - GENITOURINARY/GYNECOLOGICAL Hx Genitourinary Disorders: No - PSYCHIATRIC Hx Psychophysiologic Disorder: No - SURGICAL HISTORY Hx Mastectomy: No - ANESTHESIA Hx Anesthesia Reactions: No Hx Malignant Hyperthermia: No Meds Allergies/Adverse Reactions: Allergies Allergy/AdvReac Type Severity Reaction Status Date / Time No Known Allergies Allergy Verified 07/08/18 16:41 - Medications Medications: Current Medications Albuterol/Ipratropium (Duoneb 3 Mg/0.5 Mg (3 Ml) Ud) 3 ml IH Q4 PRN PRN Reason: Wheezing Atorvastatin Calcium (Lipitor) 20 mg GT DAILY [facility] Last Admin: 07/09/18 09:59 Dose: Not Given Clopidogrel Bisulfate (Plavix) 75 mg GT DAILY [facility] Last Admin: 07/09/18 10:01 Dose: Not Given Enoxaparin Sodium (Lovenox) 30 mg SC DAILY [facility]; Protocol Last Admin: 07/09/18 10:08 Dose: 30 mg Famotidine (Pepcid) 20 mg IVP DAILY [facility] Sodium Chloride (Sodium Chloride 0.9%) 1,000 mls @ 100 mls/hr IV .Q10H [facility] Last Admin: 07/08/18 23:01 Dose: 100 mls/hr Vancomycin HCl (Vancomycin 1gm) 1 gm in 250 mls @ 167 mls/hr IVPB Q12H [facility]; Protocol Last Admin: 07/09/18 05:00 Dose: 167 mls/hr Meropenem (Merrem Iv 1 Gm Premix) 1 gm in 50 mls @ 100 mls/hr IVPB Q8 [facility]; Protocol Last Admin: 07/09/18 06:41 Dose: 100 mls/hr Losartan Potassium (Cozaar) 50 mg GT DAILY [facility] Memantine (Namenda) 5 mg GT BID [facility] Last Admin: 07/09/18 10:00 Dose: Not Given Sodium Hypochlorite (Dakins Solution 0.25%) 0 ml TOP DAILY [facility] Last Admin: 07/09/18 09:53 Dose: 1 mg Vitamin A (Vitamin A & D Oint Ud Foilpak) 1 ea TOP Q2 PRN PRN Reason: Dry mouth Last Admin: 07/09/18 10:03 Dose: 1 ea Zinc Sulfate (Zinc Sulfate 220 Mg Cap) 220 mg GT DAILY [facility] Last Admin: 07/09/18 10:02 Dose: Not Given Physical Exam - Constitutional Appears: No Acute Distress - Head Exam Head Exam: ATRAUMATIC, NORMOCEPHALIC - Eye Exam Eye Exam: EOMI, PERRL - ENT Exam ENT Exam: Mucous Membranes Moist - Neck Exam Neck exam: Positive for: Normal Inspection - Respiratory Exam Respiratory Exam: Clear to Auscultation Bilateral Additional comments: no r/r/w - Cardiovascular Exam Cardiovascular Exam: REGULAR RHYTHM, +S1, +S2 - GI/Abdominal Exam GI & Abdominal Exam: Normal Bowel Sounds, Soft - Extremities Exam Extremities exam: Negative for: calf tenderness, pedal edema - Neurological Exam Neurological exam: Alert, CN II-XII Intact, Normal Gait, Oriented x3, Reflexes Normal - Psychiatric Exam Psychiatric exam: Normal Mood - Skin Skin Exam: Dry, Warm Additional comments: Large unstageable 18x 12 cm sacral decubiti Results - Vital Signs Recent Vital Signs: Last Vital Signs Temp 98.3 F 07/09/18 12:00 Pulse 95 H 07/09/18 12:00 Resp 18 07/09/18 12:00 BP 95/58 L 07/09/18 12:00 Pulse Ox 94 L 07/09/18 06:00 - Labs Result Diagrams: 07/09/18 08:40 07/09/18 07:00 Labs: Laboratory Results - last 24 hr 07/08/18 07/08/18 07/08/18 16:49 16:49 17:15 WBC 24.7 H RBC 3.71 Hgb 9.7 L Hct 29.4 L MCV 79.2 L D MCH 26.1 MCHC 33.0 RDW 15.2 H Plt Count 667 H MPV 8.1 Gran % 87.3 H Lymph % (Auto) 9.6 L [place] % (Auto) 2.9 Eos % (Auto) 0.1 L Baso % (Auto) 0.1 Gran # 21.54 H Lymph # (Auto) 2.4 [place] # (Auto) 0.7 H Eos # (Auto) 0.0 Baso # (Auto) 0.02 pO2 46 VBG pH 7.47 H VBG pCO2 54.0 VBG HCO3 39.3 H VBG Total CO2 41.0 H VBG O2 Sat (Calc) 85.2 H VBG Base Excess 13.3 H VBG Potassium 4.5 Sodium 125.0 L 126 L Chloride 90.0 L 88 L D Glucose 134 H Lactate 1.7 FiO2 21.0 Potassium 2.9 L* D Carbon Dioxide 32 Anion Gap 9 L BUN 13 Creatinine 0.4 L Est GFR ( Amer) > 60 Est GFR (Non-Af Amer) > 60 Random Glucose 130 H Calcium 7.7 L Phosphorus 2.8 Magnesium 1.5 L Total Bilirubin 0.4 AST 41 H D ALT 21 Alkaline Phosphatase 117 Total Protein 5.8 Albumin 2.4 L Globulin 3.4 Albumin/Globulin Ratio 0.7 L Procalcitonin Venous Blood Potassium 4.5 Urine Color Urine Appearance Urine pH Ur Specific [place] Urine Protein Urine Glucose (UA) Urine Ketones Urine Blood Urine Nitrate Urine Bilirubin Urine Urobilinogen Ur Leukocyte Esterase Urine RBC Urine WBC Ur Epithelial Cells Urine Bacteria 0107/09/18 07/09/18 18:43 07:00 08:40 WBC 21.7 H RBC 3.45 L Hgb 8.9 L Hct 27.3 L MCV 79.1 L MCH 25.8 MCHC 32.6 RDW 14.9 H Plt Count 635 H MPV 7.6 Gran % 89.3 H Lymph % (Auto) 7.9 L [place] % (Auto) 2.7 Eos % (Auto) 0.1 L Baso % (Auto) 0.0 Gran # 19.37 H Lymph # (Auto) 1.7 [place] # (Auto) 0.6 Eos # (Auto) 0.0 Baso # (Auto) 0.01 pO2 VBG pH VBG pCO2 VBG HCO3 VBG Total CO2 VBG O2 Sat (Calc) VBG Base Excess VBG Potassium Sodium 135 Chloride 102 Glucose Lactate FiO2 Potassium 3.6 Carbon Dioxide 26 Anion Gap 11 BUN 8 Creatinine 0.3 L Est GFR ( Amer) > 60 Est GFR (Non-Af Amer) > 60 Random Glucose 79 Calcium 7.3 L Phosphorus 2.7 Magnesium 1.8 Total Bilirubin 0.5 AST 32 ALT 30 Alkaline Phosphatase 100 Total Protein 5.0 L Albumin 1.9 L Globulin 3.0 Albumin/Globulin Ratio 0.6 L Procalcitonin Venous Blood Potassium Urine Color Yellow Urine Appearance Cloudy Urine pH 6.5 Ur Specific [place] <= 1.005 Urine Protein Negative Urine Glucose (UA) Negative Urine Ketones Negative Urine Blood Small H Urine Nitrate Negative Urine Bilirubin Negative Urine Urobilinogen 0.2 Ur Leukocyte Esterase Large H Urine RBC 1 - 3 H Urine WBC 15 - 20 H Ur Epithelial Cells 1 - 3 Urine Bacteria Few 07/09/18 08:40 WBC RBC Hgb Hct MCV MCH MCHC RDW Plt Count MPV Gran % Lymph % (Auto) [place] % (Auto) Eos % (Auto) Baso % (Auto) Gran # Lymph # (Auto) [place] # (Auto) Eos # (Auto) Baso # (Auto) pO2 VBG pH VBG pCO2 VBG HCO3 VBG Total CO2 VBG O2 Sat (Calc) VBG Base Excess VBG Potassium Sodium Chloride Glucose Lactate FiO2 Potassium Carbon Dioxide Anion Gap BUN Creatinine Est GFR ( Amer) Est GFR (Non-Af Amer) Random Glucose Calcium Phosphorus Magnesium Total Bilirubin AST ALT Alkaline Phosphatase Total Protein Albumin Globulin Albumin/Globulin Ratio Procalcitonin 0.58 H Venous Blood Potassium Urine Color Urine Appearance Urine pH Ur Specific [place] Urine Protein Urine Glucose (UA) Urine Ketones Urine Blood Urine Nitrate Urine Bilirubin Urine Urobilinogen Ur Leukocyte Esterase Urine RBC Urine WBC Ur Epithelial Cells Urine Bacteria Assessment & Plan - Assessment and Plan (Free Text) Assessment: 88 year old female with a PMHx significant for Parkinson's Disease, dementia, HTN, HLD, TIA, chronic back pain, and multiple sacral decubiti who presented with change in mental status and sepsis (tachycardic and hypotensive) 2/2 possibly UTI unlikely from sacral decubiti. - UA was positive for LE - Cont Vanc and started on Karen - D/shana Zosyn - As per surgery - plan for debridement today - F/u septic work up including blood, urine, and sputum cx - Cont to monitor Case and plan was reviewed and discussed with Dr Francisco. <Miles Francisco - Last Filed: 07/09/18 17:55> Meds - Medications Medications: Current Medications Albuterol/Ipratropium (Duoneb 3 Mg/0.5 Mg (3 Ml) Ud) 3 ml IH Q4 PRN PRN Reason: Wheezing Atorvastatin Calcium (Lipitor) 20 mg GT DAILY [facility] Last Admin: 07/09/18 09:59 Dose: Not Given Clopidogrel Bisulfate (Plavix) 75 mg GT DAILY [facility] Last Admin: 07/09/18 10:01 Dose: Not Given Enoxaparin Sodium (Lovenox) 30 mg SC DAILY [facility]; Protocol Last Admin: 07/09/18 10:08 Dose: 30 mg Famotidine (Pepcid) 20 mg IVP DAILY [facility] Last Admin: 07/09/18 15:09 Dose: 20 mg Sodium Chloride (Sodium Chloride 0.9%) 1,000 mls @ 100 mls/hr IV .Q10H [facility] Last Admin: 07/09/18 15:06 Dose: 100 mls/hr Vancomycin HCl (Vancomycin 1gm) 1 gm in 250 mls @ 167 mls/hr IVPB Q12H [facility]; Protocol Last Admin: 07/09/18 05:00 Dose: 167 mls/hr Meropenem (Merrem Iv 1 Gm Premix) 1 gm in 50 mls @ 100 mls/hr IVPB Q8 [facility]; Protocol Last Admin: 07/09/18 15:04 Dose: 100 mls/hr Losartan Potassium (Cozaar) 50 mg GT DAILY [facility] Memantine (Namenda) 5 mg GT BID [facility] Last Admin: 07/09/18 10:00 Dose: Not Given Sodium Hypochlorite (Dakins Solution 0.25%) 0 ml TOP DAILY [facility] Last Admin: 07/09/18 09:53 Dose: 1 mg Vitamin A (Vitamin A & D Oint Ud Foilpak) 1 ea TOP Q2 PRN PRN Reason: Dry mouth Last Admin: 07/09/18 10:03 Dose: 1 ea Zinc Sulfate (Zinc Sulfate 220 Mg Cap) 220 mg GT DAILY [facility] Last Admin: 07/09/18 10:02 Dose: Not Given Results - Vital Signs Recent Vital Signs: Last Vital Signs Temp 97.8 F 07/09/18 17:50 Pulse 86 07/09/18 17:50 Resp 18 07/09/18 17:50 BP 84/45 L 07/09/18 17:50 Pulse Ox 94 L 07/09/18 06:00 - Labs Result Diagrams: 07/09/18 08:40 07/09/18 07:00 Labs: Laboratory Results - last 24 hr 07/08/18 07/08/18 07/08/18 16:49 17:15 18:43 WBC RBC Hgb Hct MCV MCH MCHC RDW Plt Count MPV Gran % Lymph % (Auto) [place] % (Auto) Eos % (Auto) Baso % (Auto) Gran # Lymph # (Auto) [place] # (Auto) Eos # (Auto) Baso # (Auto) pO2 46 VBG pH 7.47 H VBG pCO2 54.0 VBG HCO3 39.3 H VBG Total CO2 41.0 H VBG O2 Sat (Calc) 85.2 H VBG Base Excess 13.3 H VBG Potassium 4.5 Sodium 125.0 L 126 L Chloride 90.0 L 88 L D Glucose 134 H Lactate 1.7 FiO2 21.0 Potassium 2.9 L* D Carbon Dioxide 32 Anion Gap 9 L BUN 13 Creatinine 0.4 L Est GFR ( Amer) > 60 Est GFR (Non-Af Amer) > 60 Random Glucose 130 H Calcium 7.7 L Phosphorus 2.8 Magnesium 1.5 L Total Bilirubin 0.4 AST 41 H D ALT 21 Alkaline Phosphatase 117 Total Protein 5.8 Albumin 2.4 L Globulin 3.4 Albumin/Globulin Ratio 0.7 L Procalcitonin Venous Blood Potassium 4.5 Urine Color Yellow Urine Appearance Cloudy Urine pH 6.5 Ur Specific [place] <= 1.005 Urine Protein Negative Urine Glucose (UA) Negative Urine Ketones Negative Urine Blood Small H Urine Nitrate Negative Urine Bilirubin Negative Urine Urobilinogen 0.2 Ur Leukocyte Esterase Large H Urine RBC 1 - 3 H Urine WBC 15 - 20 H Ur Epithelial Cells 1 - 3 Urine Bacteria Few 07/09/18 07/09/18 07/09/18 07:00 08:40 08:40 WBC 21.7 H RBC 3.45 L Hgb 8.9 L Hct 27.3 L MCV 79.1 L MCH 25.8 MCHC 32.6 RDW 14.9 H Plt Count 635 H MPV 7.6 Gran % 89.3 H Lymph % (Auto) 7.9 L [place] % (Auto) 2.7 Eos % (Auto) 0.1 L Baso % (Auto) 0.0 Gran # 19.37 H Lymph # (Auto) 1.7 [place] # (Auto) 0.6 Eos # (Auto) 0.0 Baso # (Auto) 0.01 pO2 VBG pH VBG pCO2 VBG HCO3 VBG Total CO2 VBG O2 Sat (Calc) VBG Base Excess VBG Potassium Sodium 135 Chloride 102 Glucose Lactate FiO2 Potassium 3.6 Carbon Dioxide 26 Anion Gap 11 BUN 8 Creatinine 0.3 L Est GFR ( Amer) > 60 Est GFR (Non-Af Amer) > 60 Random Glucose 79 Calcium 7.3 L Phosphorus 2.7 Magnesium 1.8 Total Bilirubin 0.5 AST 32 ALT 30 Alkaline Phosphatase 100 Total Protein 5.0 L Albumin 1.9 L Globulin 3.0 Albumin/Globulin Ratio 0.6 L Procalcitonin 0.58 H Venous Blood Potassium Urine Color Urine Appearance Urine pH Ur Specific [place] Urine Protein Urine Glucose (UA) Urine Ketones Urine Blood Urine Nitrate Urine Bilirubin Urine Urobilinogen Ur Leukocyte Esterase Urine RBC Urine WBC Ur Epithelial Cells Urine Bacteria Assessment & Plan - Assessment and Plan (Free Text) Assessment: Infectious diseases Attending Physician Attestation Patient seen and examined, discussed with medical assisting program director. I have reviewed the patient's history of present illness, past medical, social, personal and family histories, pertinent physical exam findings, course so far in this hospital admission, pertinent laboratory and imaging results. I agree with the above fi ndings, assessment and plan. In addition, started Vancomycin and Merrem, with SIRS from UTI and sacral decubitus ulcer infection. As per surgery, patient is for debridement and will follow up wound cx, as well as urine cx. Will trend WBC count.
--- NOTE | 2018-07-09 15:00 | CP.PCM.CON ---
History of Present Illness - History of Present Illness History of Present Illness: Palliate consult requested by Dr Colby Cavanaugh Reason: Goals of care 88 year old female with history of Parkinson's, dementia who was brought to ED with somnolence,confusion.The patient is bed bound. Family report her as being lethargic and as having multiple pressure ulcers on shoulders, collar bone, sacrum. Chest x ray: Linear infiltrate in right lung base which probably represents atelectasis. Espino cultures pending PMHx: Parkison's, dementia, DM,HTN, HLD, TIA, chronic low back pain, UTI's, C Diff. PSHx:Eye lid surgery, PEG, sacral ulcer debridement, wound vac. Family History: Non contributory Social History: Non smoker, no alcohol or drug use. Lives with family who are primary care takers [employer] three times a week. Advance Care Planning: The patient has an Advanced Directive. Her son Zack is her healthcare POA Review of Systems: As per HPI, the patient is altered answers some simple questions, unable to obtain comprehensive ROS Past Patient History - Infectious Disease Hx of Infectious Diseases: None - Past Social History Smoking Status: Never Smoked - CARDIAC Hx Hypertension: Yes - PULMONARY Hx Respiratory Disorders: No - NEUROLOGICAL HX Cerebrovascular Accident: Yes (TIA) - HEENT Hx HEENT Problems: Yes (eyeglasses) Other/Comment: eye sx fatty tissue removed from both eyelids - RENAL Hx Chronic Kidney Disease: No - ENDOCRINE/METABOLIC Hx Endocrine Disorders: No - HEMATOLOGICAL/ONCOLOGICAL Hx Cancer: No - INTEGUMENTARY Hx Dermatological Problems: No - MUSCULOSKELETAL/RHEUMATOLOGICAL Hx Falls: No - GASTROINTESTINAL Hx Gastrointestinal Disorders: No - GENITOURINARY/GYNECOLOGICAL Hx Genitourinary Disorders: No - PSYCHIATRIC Hx Psychophysiologic Disorder: No - SURGICAL HISTORY Hx Mastectomy: No - ANESTHESIA Hx Anesthesia Reactions: No Hx Malignant Hyperthermia: No Meds Allergies/Adverse Reactions: Allergies Allergy/AdvReac Type Severity Reaction Status Date / Time No Known Allergies Allergy Verified 07/08/18 16:41 - Medications Medications: Current Medications Albuterol/Ipratropium (Duoneb 3 Mg/0.5 Mg (3 Ml) Ud) 3 ml IH Q4 PRN PRN Reason: Wheezing Atorvastatin Calcium (Lipitor) 20 mg GT DAILY [facility] Last Admin: 07/09/18 09:59 Dose: Not Given Clopidogrel Bisulfate (Plavix) 75 mg GT DAILY [facility] Last Admin: 07/09/18 10:01 Dose: Not Given Enoxaparin Sodium (Lovenox) 30 mg SC DAILY [facility]; Protocol Last Admin: 07/09/18 10:08 Dose: 30 mg Famotidine (Pepcid) 20 mg IVP DAILY [facility] Sodium Chloride (Sodium Chloride 0.9%) 1,000 mls @ 100 mls/hr IV .Q10H [facility] Last Admin: 07/08/18 23:01 Dose: 100 mls/hr Vancomycin HCl (Vancomycin 1gm) 1 gm in 250 mls @ 167 mls/hr IVPB Q12H [facility]; Protocol Last Admin: 07/09/18 05:00 Dose: 167 mls/hr Meropenem (Merrem Iv 1 Gm Premix) 1 gm in 50 mls @ 100 mls/hr IVPB Q8 [facility]; Protocol Last Admin: 07/09/18 06:41 Dose: 100 mls/hr Losartan Potassium (Cozaar) 50 mg GT DAILY [facility] Memantine (Namenda) 5 mg GT BID [facility] Last Admin: 07/09/18 10:00 Dose: Not Given Sodium Hypochlorite (Dakins Solution 0.25%) 0 ml TOP DAILY [facility] Last Admin: 07/09/18 09:53 Dose: 1 mg Vitamin A (Vitamin A & D Oint Ud Foilpak) 1 ea TOP Q2 PRN PRN Reason: Dry mouth Last Admin: 07/09/18 10:03 Dose: 1 ea Zinc Sulfate (Zinc Sulfate 220 Mg Cap) 220 mg GT DAILY [facility] Last Admin: 07/09/18 10:02 Dose: Not Given Physical Exam - Constitutional Appears: No Acute Distress, Chronically Ill - Head Exam Head Exam: NORMOCEPHALIC - Eye Exam Eye Exam: Normal appearance, PERRL - ENT Exam ENT Exam: Mucous Membranes Moist - Respiratory Exam Respiratory Exam: Decreased Breath Sounds, NORMAL BREATHING PATTERN - Cardiovascular Exam Cardiovascular Exam: REGULAR RHYTHM, +S1, +S2 - GI/Abdominal Exam GI & Abdominal Exam: Normal Bowel Sounds, Soft Additional comments: G tube - Back Exam Additional comments: unstageable necrotic sacral decubiti extending across both buttocks - Neurological Exam Neurological exam: Altered - Skin Skin Exam: Dry, Pallor Additional comments: multiple pressures ulcers, both clavicles, scapula,hips Results - Vital Signs Recent Vital Signs: Last Vital Signs Temp 98.3 F 07/09/18 12:00 Pulse 95 H 07/09/18 12:00 Resp 18 07/09/18 12:00 BP 95/58 L 07/09/18 12:00 Pulse Ox 94 L 07/09/18 06:00 - Labs Result Diagrams: 07/10/18 07:30 07/10/18 07:30 Labs: Laboratory Results - last 24 hr 07/08/18 07/08/18 07/08/18 16:49 16:49 17:15 WBC 24.7 H RBC 3.71 Hgb 9.7 L Hct 29.4 L MCV 79.2 L D MCH 26.1 MCHC 33.0 RDW 15.2 H Plt Count 667 H MPV 8.1 Gran % 87.3 H Lymph % (Auto) 9.6 L Bourbon % (Auto) 2.9 Eos % (Auto) 0.1 L Baso % (Auto) 0.1 Gran # 21.54 H Lymph # (Auto) 2.4 [place]bon # (Auto) 0.7 H Eos # (Auto) 0.0 Baso # (Auto) 0.02 pO2 46 VBG pH 7.47 H VBG pCO2 54.0 VBG HCO3 39.3 H VBG Total CO2 41.0 H VBG O2 Sat (Calc) 85.2 H VBG Base Excess 13.3 H VBG Potassium 4.5 Sodium 125.0 L 126 L Chloride 90.0 L 88 L D Glucose 134 H Lactate 1.7 FiO2 21.0 Potassium 2.9 L* D Carbon Dioxide 32 Anion Gap 9 L BUN 13 Creatinine 0.4 L Est GFR ( Amer) > 60 Est GFR (Non-Af Amer) > 60 Random Glucose 130 H Calcium 7.7 L Phosphorus 2.8 Magnesium 1.5 L Total Bilirubin 0.4 AST 41 H D ALT 21 Alkaline Phosphatase 117 Total Protein 5.8 Albumin 2.4 L Globulin 3.4 Albumin/Globulin Ratio 0.7 L Procalcitonin Venous Blood Potassium 4.5 Urine Color Urine Appearance Urine pH Ur Specific Esmond Urine Protein Urine Glucose (UA) Urine Ketones Urine Blood Urine Nitrate Urine Bilirubin Urine Urobilinogen Ur Leukocyte Esterase Urine RBC Urine WBC Ur Epithelial Cells Urine Bacteria 07/08/18 07/09/18 07/09/18 18:43 07:00 08:40 WBC 21.7 H RBC 3.45 L Hgb 8.9 L Hct 27.3 L MCV 79.1 L MCH 25.8 MCHC 32.6 RDW 14.9 H Plt Count 635 H MPV 7.6 Gran % 89.3 H Lymph % (Auto) 7.9 L Bour[place] % (Auto) 2.7 Eos % (Auto) 0.1 L Baso % (Auto) 0.0 Gran # 19.37 H Lymph # (Auto) 1.7 Bourbon # (Auto) 0.6 Eos # (Auto) 0.0 Baso # (Auto) 0.01 pO2 VBG pH VBG pCO2 VBG HCO3 VBG Total CO2 VBG O2 Sat (Calc) VBG Base Excess VBG Potassium Sodium 135 Chloride 102 Glucose Lactate FiO2 Potassium 3.6 Carbon Dioxide 26 Anion Gap 11 BUN 8 Creatinine 0.3 L Est GFR ( Amer) > 60 Est GFR (Non-Af Amer) > 60 Random Glucose 79 Calcium 7.3 L Phosphorus 2.7 Magnesium 1.8 Total Bilirubin 0.5 AST 32 ALT 30 Alkaline Phosphatase 100 Total Protein 5.0 L Albumin 1.9 L Globulin 3.0 Albumin/Globulin Ratio 0.6 L Procalcitonin Venous Blood Potassium Urine Color Yellow Urine Appearance Cloudy Urine pH 6.5 Ur Specific Esmond <= 1.005 Urine Protein Negative Urine Glucose (UA) Negative Urine Ketones Negative Urine Blood Small H Urine Nitrate Negative Urine Bilirubin Negative Urine Urobilinogen 0.2 Ur Leukocyte Esterase Large H Urine RBC 1 - 3 H Urine WBC 15 - 20 H Ur Epithelial Cells 1 - 3 Urine Bacteria Few 07/09/18 08:40 WBC RBC Hgb Hct MCV MCH MCHC RDW Plt Count MPV Gran % Lymph % (Auto) Bourbon % (Auto) Eos % (Auto) Baso % (Auto) Gran # Lymph # (Auto) Bourbon # (Auto) Eos # (Auto) Baso # (Auto) pO2 VBG pH VBG pCO2 VBG HCO3 VBG Total CO2 VBG O2 Sat (Calc) VBG Base Excess VBG Potassium Sodium Chloride Glucose Lactate FiO2 Potassium Carbon Dioxide Anion Gap BUN Creatinine Est GFR ( Amer) Est GFR (Non-Af Amer) Random Glucose Calcium Phosphorus Magnesium Total Bilirubin AST ALT Alkaline Phosphatase Total Protein Albumin Globulin Albumin/Globulin Ratio Procalcitonin 0.58 H Venous Blood Potassium Urine Color Urine Appearance Urine pH Ur Specific Esmond Urine Protein Urine Glucose (UA) Urine Ketones Urine Blood Urine Nitrate Urine Bilirubin Urine Urobilinogen Ur Leukocyte Esterase Urine RBC Urine WBC Ur Epithelial Cells Urine Bacteria Assessment & Plan - Assessment and Plan (Free Text) Assessment: 88 year old female with history of Parkinson's, dementia, HTN, HLD, DM, C Diff, sacral ulcer who is admitted with lethargy,leukocytosis, necrotic sacral wound, infected PEG, hypokalemia. The patient is known to me from previous admissions. She is alert, denies pain. The patient has and Advanced Directive. Her son Zack is her POA. The patients AD states that she does not want to be intubated or have CPR if her condition is terminal or irreversible. In past, family has not been willing to maker her DNR/DNI because they feel she is not terminally ill. Zack is expected to visit with her later today. Will meet with him to discuss goals of care and advance care planning Plan: Goals of care Surgical debridment of sacral ulcer, PEG replacement tomorrow. Dakin"s solution to wounds Leukocytosis: Espino cultures pending, continue Vancomycin and Merrem Continue Lipitor, Cozaar, DVT prohylaxis Hypokalemia is resolved
[2018-07-09] MEDS: Sodium Chloride 0.9% 1,000 ML IV SCH (15:06)
--- NOTE | 2018-07-09 21:05 | CARD ---
APPROVED REPORT Date of service: 07/08/2018 EKG Measurement Heart [id number] <Conclusion> Normal sinus rhythm Normal ECG
[2018-07-10] MEDS: Sodium Chloride 0.9% 1,000 ML IV SCH (04:32)
[2018-07-10] MEDS: Meropenem IV 1 gm in NS 1 GM/50 ML BAG IVPB SCH ×3 (05:00→22:30)
[2018-07-10] MEDS: Vancomycin 1gm in NS 250ml 1 GM/250 ML BAG IVPB SCH ×2 (05:15→18:49)
[2018-07-10 07:41] LABS: HEMOGLOBIN 9.3 g/dL (12.0-16.0); MEAN CELL VOLUME 79.9 fl (80.0-105.0); MEAN CORPUSCULAR HEMOGLOBIN 26.3 pg (25.0-35.0); MEAN PLATELET VOLUME 7.7 fl (7.0-11.0); RBC 3.53 10^6/uL (3.5-6.1); RED CELL DISTRIBUTION WIDTH 15.3 % (11.5-14.5); WHITE BLOOD COUNT 16.8 10^3/uL (4.5-11.0)
[2018-07-10 07:50] LABS: INR 1.32; PARTIAL THROMBOPLASTIN TIME 37.9 Seconds (25.1-36.5); PROTHROMBIN TIME 15.3 SECONDS (9.4-12.5)
[2018-07-10 08:06] LABS: ALB/GLOB RATIO 0.6 (1.1-1.8); ALBUMIN 2.1 g/dL (3.0-4.8); ALT/SGPT 33 U/L (7-56); AST/SGOT 56 U/L (14-36); BLOOD UREA NITROGEN 8 mg/dL (7-21); CALCIUM 7.7 mg/dL (8.4-10.5); GFR NON-AFRICAN AMERICAN > 60
[2018-07-10] MEDS ORDERED: Bupivacaine 0.5% 50 ML IJ ONE (08:40)
[2018-07-10] MEDS ORDERED: Bacitracin Ointment 30 GM TUBE ONE (08:40)
--- NOTE | 2018-07-10 08:57 | CP.PCM.PN ---
<Pierce Ortiz - Last Filed: 07/10/18 12:48> Subjective - Date & Time of Evaluation Date of Evaluation: 07/10/18 Time of Evaluation: 07:10 - Subjective Subjective: Infectious disease progress note: Pt seen and examined at bedside. No acute events overnight. Planned for SDU debridement today and possible PEG tube replacement. Doing better otherwise, and more alert. Denies any pain. 12 Point ROS performed and neg other than stated above. Objective - Vital Signs/Intake and Output Vital Signs (last 24 hours): Temp Pulse Resp BP Pulse Ox 98 F 80 18 103/55 L 100 07/10/18 06:00 07/10/18 06:00 07/10/18 06:00 07/10/18 06:00 07/10/18 06:00 Intake and Output: 07/10/18 07/10/18 06:59 18:59 Intake Total 0 Output Total 775 Balance -775 - Medications Medications: Current Medications Albuterol/Ipratropium (Duoneb 3 Mg/0.5 Mg (3 Ml) Ud) 3 ml IH Q4 PRN PRN Reason: Wheezing Atorvastatin Calcium (Lipitor) 20 mg GT DAILY [facility] Last Admin: 07/09/18 09:59 Dose: Not Given Clopidogrel Bisulfate (Plavix) 75 mg GT DAILY [facility] Last Admin: 07/09/18 10:01 Dose: Not Given Enoxaparin Sodium (Lovenox) 30 mg SC DAILY [facility]; Protocol Last Admin: 07/09/18 10:08 Dose: 30 mg Famotidine (Pepcid) 20 mg IVP DAILY [facility] Last Admin: 07/09/18 15:09 Dose: 20 mg Vancomycin HCl (Vancomycin 1gm) 1 gm in 250 mls @ 167 mls/hr IVPB Q12H [facility]; Protocol Last Admin: 07/10/18 05:15 Dose: 167 mls/hr Meropenem (Merrem Iv 1 Gm Premix) 1 gm in 50 mls @ 100 mls/hr IVPB Q8 [facility]; Protocol Last Admin: 07/10/18 05:00 Dose: 100 mls/hr Potassium Chloride (Potassium Chloride 10 Meq/100 Ml) 10 meq in 100 mls @ 50 mls/hr IVPB Q2H [facility] Stop: 07/10/18 12:14 Last Admin: 01/15/19 08:53 Dose: 50 mls/hr Potassium Chloride 40 meq/ (Sodium Chloride) 1,020 mls @ 75 mls/hr IV .[id number] [facility] Losartan Potassium (Cozaar) 50 mg GT DAILY [facility] Memantine (Namenda) 5 mg GT BID [facility] Last Admin: 07/09/18 18:01 Dose: Not Given Sodium Hypochlorite (Dakins Solution 0.25%) 0 ml TOP DAILY [facility] Last Admin: 07/09/18 09:53 Dose: 1 mg Vitamin A (Vitamin A & D Oint Ud Foilpak) 1 ea TOP Q2 PRN PRN Reason: Dry mouth Last Admin: 07/09/18 10:03 Dose: 1 ea Zinc Sulfate (Zinc Sulfate 220 Mg Cap) 220 mg GT DAILY [facility] Last Admin: 07/09/18 10:02 Dose: Not Given - Labs Labs: 07/10/18 07:30 07/10/18 07:30 PT 15.3 SECONDS (9.4-12.5) H 07/10/18 07:30 INR 1.32 07/10/18 07:30 APTT 37.9 Seconds (25.1-36.5) H 07/10/18 07:30 - Constitutional Appears: No Acute Distress - Head Exam Head Exam: ATRAUMATIC, NORMOCEPHALIC - ENT Exam ENT Exam: Mucous Membranes Moist - Respiratory Exam Respiratory Exam: Clear to Ausculation Bilateral. absent: Rales, Rhonchi, Wheezes - Cardiovascular Exam Cardiovascular Exam: REGULAR RHYTHM, +S1, +S2 - GI/Abdominal Exam GI & Abdominal Exam: Soft. absent: Tenderness - Extremities Exam Extremities Exam: absent: Calf Tenderness, Pedal Edema - Neurological Exam Neurological Exam: Alert, Awake, Oriented x3 - Psychiatric Exam Psychiatric exam: Normal Affect, Normal Mood - Skin Skin Exam: Dry, Warm Assessment and Plan - Assessment and Plan (Free Text) Assessment: 88 year old female with a PMHx significant for Parkinson's Disease, dementia, HTN, HLD, TIA, chronic back pain, and multiple sacral decubiti who presented with change in mental status and sepsis (tachycardic and hypotensive) 2/2 possibly UTI unlikely from sacral decubiti. - Plan for debridement and PEG tube replacement today as per surgery - UA was positive for LE - Procal elevated 0.58 - Wound cx sacrum showed rare PMN and rare gram + cocci - Blood cx x 1 showed gram + cocci in clusters - Cont abx with Vanc and Karen - Cont to monitor Case and plan was reviewed and discussed with Dr Francisco. <Miles Francisco - Last Filed: 07/10/18 18:07> Objective - Vital Signs/Intake and Output Vital Signs (last 24 hours): Temp Pulse Resp BP Pulse Ox 98.2 F 91 H 18 110/55 L 95 07/10/18 13:45 07/10/18 17:39 07/10/18 13:45 07/10/18 13:45 07/10/18 13:45 Intake and Output: 07/10/18 07/10/18 06:59 18:59 Intake Total 0 0 Output Total 775 Balance -775 0 - Medications Medications: Current Medications Albuterol/Ipratropium (Duoneb 3 Mg/0.5 Mg (3 Ml) Ud) 3 ml IH Q4 PRN PRN Reason: Wheezing Atorvastatin Calcium (Lipitor) 20 mg GT DAILY [facility] Last Admin: 07/10/18 10:33 Dose: Not Given Clopidogrel Bisulfate (Plavix) 75 mg GT DAILY [facility] Last Admin: 07/09/18 10:01 Dose: Not Given Enoxaparin Sodium (Lovenox) 30 mg SC DAILY [facility]; Protocol Last Admin: 07/09/18 10:08 Dose: 30 mg Famotidine (Pepcid) 20 mg IVP DAILY [facility] Last Admin: 07/10/18 10:33 Dose: Not Given Vancomycin HCl (Vancomycin 1gm) 1 gm in 250 mls @ 167 mls/hr IVPB Q12H [facility]; Protocol Last Admin: 07/10/18 05:15 Dose: 167 mls/hr Meropenem (Merrem Iv 1 Gm Premix) 1 gm in 50 mls @ 100 mls/hr IVPB Q8 [facility]; Protocol Last Admin: 07/10/18 15:52 Dose: 100 mls/hr Potassium Chloride 40 meq/ (Sodium Chloride) 1,020 mls @ 75 mls/hr IV .[id number] [facility] Last Admin: 07/10/18 10:34 Dose: Not Given Losartan Potassium (Cozaar) 50 mg GT DAILY [facility] Memantine (Namenda) 5 mg GT BID [facility] Last Admin: 07/10/18 10:33 Dose: Not Given Metoclopramide HCl (Reglan) 10 mg IV ONCE PRN PRN Reason: Nausea/Vomiting Sodium Hypochlorite (Dakins Solution 0.25%) 0 ml TOP DAILY [facility] Last Admin: 07/10/18 10:33 Dose: Not Given Vitamin A (Vitamin A & D Oint Ud Foilpak) 1 ea TOP Q2 PRN PRN Reason: Dry mouth Last Admin: 07/09/18 10:03 Dose: 1 ea Zinc Sulfate (Zinc Sulfate 220 Mg Cap) 220 mg GT DAILY [facility] Last Admin: 07/10/18 10:35 Dose: Not Given - Labs Labs: 07/10/18 07:30 07/10/18 07:30 PT 15.3 SECONDS (9.4-12.5) H 07/10/18 07:30 INR 1.32 07/10/18 07:30 APTT 37.9 Seconds (25.1-36.5) H 07/10/18 07:30 Assessment and Plan - Assessment and Plan (Free Text) Assessment: Infectious diseases Attending Physician Attestation Patient seen and examined, discussed with medical collections representative. I have reviewed the patient's history of present illness, past medical, social, personal and family histories, pertinent physical exam findings, course so far in this hospital admission, pertinent laboratory and imaging results. I agree with the above findings, assessment and plan. In addition, continue Vancomycin and Merrem for patient with sacral decubitus ulcer infection for debridement today. Follow up O R findings and cultures. Follow up GPC clusters identification and sensitivities in the blood. Repeat blood cx.
[2018-07-10] MEDS ORDERED: A C T ELECTRONICS XX ONE (09:35)
[2018-07-10] MEDS ORDERED: Etomidate 20 mg/10ml Inj IV ONE (10:29)
[2018-07-10] MEDS ORDERED: Succinylcholine 200 mg/10 ml Inj IV ONE (10:30)
[2018-07-10] MEDS: Dakin's Topical 0.25%-Half Strength (480 ml) TOP SCH (10:33)
[2018-07-10] MEDS ORDERED: Phenylephrine 10 mg/ml Inj ONE (11:05)
[2018-07-10] MEDS ORDERED: Rocuronium 10 mg/ml (5 ml) ONE (11:25)
[2018-07-10] MEDS ORDERED: Oxychlorosene Topical 2 gm Packet TOP ONE (11:34)
[2018-07-10] MEDS ORDERED: Lactated Ringer's 1,000 ML IV SCH (13:00)
--- NOTE | 2018-07-10 13:12 | PCM.SURG1 ---
Surgeon's Initial Post Op Note - Surgeon's Notes Surgeon: Dr. Norman Grain Trimmer: PGY2 Type of Anesthesia: General Endo Pre-Operative Diagnosis: 1. non-functioning G-tube. 2. Unstagable sacral decubitus ulcer Operative Findings: see op note Post-Operative Diagnosis: Stated above Operation Performed: 1. G-tube exchanged; confirmed w/ X-ray. 2. Sacral debridement of skin, soft tissue and muscle. 3. wound vac placement Specimen/Specimens Removed: necrotic skin Estimated Blood Loss: EBL {In ML}: 8 Drains Used: Wound Vac Post-Op Condition: Fair Date of Surgery/Procedure: 07/10/18 Time of Surgery/Procedure: 13:09 (Dictation #: [id number])
--- NOTE | 2018-07-10 14:55 | RAD ---
Date of service: 07/10/2018 PROCEDURE: Fluoroscopy up to 1 hr HISTORY: G - TUBE EXCHANGE UNDER FLUOROSCOPY COMPARISON: TECHNIQUE: Fluoroscopy was provided in the operating room. 3.5 sec of fluoro time. Cumulative dose 1.11 mGy. One image submitted FINDINGS: The study shows a balloon tipped catheter in the stomach. Intraluminal position was confirmed with contrast. IMPRESSION: As above
--- NOTE | 2018-07-10 15:40 | CP.PCM.PN ---
Subjective - Date & Time of Evaluation Date of Evaluation: 07/10/18 Time of Evaluation: 15:00 - Subjective Subjective: Sedated, just returnd form OR s/p wound debridement.No acute distress. Objective - Vital Signs/Intake and Output Vital Signs (last 24 hours): Temp Pulse Resp BP Pulse Ox 98.2 F 96 H 18 110/55 L 95 07/10/18 13:45 07/10/18 13:45 07/10/18 13:45 07/10/18 13:45 07/10/18 13:45 Intake and Output: 07/10/18 07/10/18 06:59 18:59 Intake Total 0 0 Output Total 775 Balance -775 0 - Medications Medications: Current Medications Albuterol/Ipratropium (Duoneb 3 Mg/0.5 Mg (3 Ml) Ud) 3 ml IH Q4 PRN PRN Reason: Wheezing Atorvastatin Calcium (Lipitor) 20 mg GT DAILY [facility] Last Admin: 07/10/18 10:33 Dose: Not Given Clopidogrel Bisulfate (Plavix) 75 mg GT DAILY [facility] Last Admin: 07/09/18 10:01 Dose: Not Given Enoxaparin Sodium (Lovenox) 30 mg SC DAILY [facility]; Protocol Last Admin: 07/09/18 10:08 Dose: 30 mg Famotidine (Pepcid) 20 mg IVP DAILY [facility] Last Admin: 07/10/18 10:33 Dose: Not Given Vancomycin HCl (Vancomycin 1gm) 1 gm in 250 mls @ 167 mls/hr IVPB Q12H [facility]; Protocol Last Admin: 07/10/18 05:15 Dose: 167 mls/hr Meropenem (Merrem Iv 1 Gm Premix) 1 gm in 50 mls @ 100 mls/hr IVPB Q8 [facility]; Protocol Last Admin: 07/10/18 05:00 Dose: 100 mls/hr Potassium Chloride 40 meq/ (Sodium Chloride) 1,020 mls @ 75 mls/hr IV .[id number] [facility] Last Admin: 07/10/18 10:34 Dose: Not Given Losartan Potassium (Cozaar) 50 mg GT DAILY [facility] Memantine (Namenda) 5 mg GT BID [facility] Last Admin: 07/10/18 10:33 Dose: Not Given Metoclopramide HCl (Reglan) 10 mg IV ONCE PRN PRN Reason: Nausea/Vomiting Sodium Hypochlorite (Dakins Solution 0.25%) 0 ml TOP DAILY [facility] Last Admin: 07/10/18 10:33 Dose: Not Given Vitamin A (Vitamin A & D Oint Ud Foilpak) 1 ea TOP Q2 PRN PRN Reason: Dry mouth Last Admin: 07/09/18 10:03 Dose: 1 ea Zinc Sulfate (Zinc Sulfate 220 Mg Cap) 220 mg GT DAILY [facility] Last Admin: 07/10/18 10:35 Dose: Not Given - Labs Labs: 07/10/18 07:30 07/10/18 07:30 PT 15.3 SECONDS (9.4-12.5) H 07/10/18 07:30 INR 1.32 07/10/18 07:30 APTT 37.9 Seconds (25.1-36.5) H 07/10/18 07:30 - Constitutional Appears: Chronically Ill - Eye Exam Eye Exam: Normal appearance, PERRL - ENT Exam ENT Exam: Mucous Membranes Moist - Respiratory Exam Respiratory Exam: Clear to Ausculation Bilateral, NORMAL BREATHING PATTERN - Cardiovascular Exam Cardiovascular Exam: REGULAR RHYTHM, +S1, +S2 - GI/Abdominal Exam GI & Abdominal Exam: Soft Additional comments: PEG site dry, no erythema - Extremities Exam Extremities Exam: Normal Capillary Refill - Back Exam Additional comments: wound vac to sacral decubiti Assessment and Plan - Assessment and Plan (Free Text) Assessment: 88 year old female with history of Parkinson's, dementia, DM, HTN, dyspagia,C Diff who is admitted with a necrotic sacral decubitis ulcer, bacteremia, UTI and PEG replacement. I spoke with Zack MONROE via phone. Son states he spoke with surgical team and has been updated of his mother condition. Goals of care discussed. Son states that his mother is not terminally ill and wants full medical treatment of her condition. He states that her Advance Directives stipulates that in the event she is terminal or in a vegetative state, she be made DNR/ DNI Goals of care discussion with family, 15 minutes Plan: Goals of care Sepsis/ bacteremia/UTI/ sacral wound: ID recs reviewed, continue Vancomycin and Merrem Wound vac to sacrum, air mattress, multiple small ulcers continue wound care.
--- NOTE | 2018-07-10 16:17 | CP.PCM.PN ---
<Unruly Artis - Last Filed: 07/10/18 16:18> Subjective - Date & Time of Evaluation Date of Evaluation: 07/10/18 Time of Evaluation: 08:00 - Subjective Subjective: Unruly Artis PGY1 Medicine Progress Note for Dr. Nieves Patient was seen and examined at bedside this morning. Mental status is unchanged, still AAOx1 to person. No overnight events. VSS. Patient is a poor historian. Objective - Vital Signs/Intake and Output Vital Signs (last 24 hours): Temp Pulse Resp BP Pulse Ox 98.2 F 96 H 18 110/55 L 95 07/10/18 13:45 07/10/18 13:45 07/10/18 13:45 07/10/18 13:45 07/10/18 13:45 Intake and Output: 07/10/18 07/10/18 06:59 18:59 Intake Total 0 0 Output Total 775 Balance -775 0 - Medications Medications: Current Medications Albuterol/Ipratropium (Duoneb 3 Mg/0.5 Mg (3 Ml) Ud) 3 ml IH Q4 PRN PRN Reason: Wheezing Atorvastatin Calcium (Lipitor) 20 mg GT DAILY [facility] Last Admin: 07/10/18 10:33 Dose: Not Given Clopidogrel Bisulfate (Plavix) 75 mg GT DAILY [facility] Last Admin: 07/09/18 10:01 Dose: Not Given Enoxaparin Sodium (Lovenox) 30 mg SC DAILY [facility]; Protocol Last Admin: 07/09/18 10:08 Dose: 30 mg Famotidine (Pepcid) 20 mg IVP DAILY [facility] Last Admin: 07/10/18 10:33 Dose: Not Given Vancomycin HCl (Vancomycin 1gm) 1 gm in 250 mls @ 167 mls/hr IVPB Q12H [facility]; Protocol Last Admin: 07/10/18 05:15 Dose: 167 mls/hr Meropenem (Merrem Iv 1 Gm Premix) 1 gm in 50 mls @ 100 mls/hr IVPB Q8 [facility]; Protocol Last Admin: 07/10/18 15:52 Dose: 100 mls/hr Potassium Chloride 40 meq/ (Sodium Chloride) 1,020 mls @ 75 mls/hr IV .[id number] [facility] Last Admin: 07/10/18 10:34 Dose: Not Given Losartan Potassium (Cozaar) 50 mg GT DAILY [facility] Memantine (Namenda) 5 mg GT BID [facility] Last Admin: 07/10/18 10:33 Dose: Not Given Metoclopramide HCl (Reglan) 10 mg IV ONCE PRN PRN Reason: Nausea/Vomiting Sodium Hypochlorite (Dakins Solution 0.25%) 0 ml TOP DAILY [facility] Last Admin: 07/10/18 10:33 Dose: Not Given Vitamin A (Vitamin A & D Oint Ud Foilpak) 1 ea TOP Q2 PRN PRN Reason: Dry mouth Last Admin: 07/09/18 10:03 Dose: 1 ea Zinc Sulfate (Zinc Sulfate 220 Mg Cap) 220 mg GT DAILY [facility] Last Admin: 07/10/18 10:35 Dose: Not Given - Labs Labs: 07/10/18 07:30 07/10/18 07:30 PT 15.3 SECONDS (9.4-12.5) H 07/10/18 07:30 INR 1.32 07/10/18 07:30 APTT 37.9 Seconds (25.1-36.5) H 07/10/18 07:30 - Constitutional Appears: No Acute Distress - Head Exam Head Exam: ATRAUMATIC, NORMAL INSPECTION, NORMOCEPHALIC - Eye Exam Eye Exam: EOMI - ENT Exam ENT Exam: Mucous Membranes Moist - Respiratory Exam Respiratory Exam: Clear to Ausculation Bilateral. absent: Chest Wall Tenderness, Rales, Rhonchi, Wheezes - Cardiovascular Exam Cardiovascular Exam: RRR, +S1, +S2 Additional comments: Circular abrasion 3 cm at the right clavicular region. - GI/Abdominal Exam GI & Abdominal Exam: Soft, Normal Bowel Sounds. absent: Guarding, Tenderness Additional comments: G-tube is present. Black drainage is noted. - Rectal Exam Additional comments: Sacral decubitis ulcer - Stage 5. 18 x12 cm. Purulent drainage is noted. - Extremities Exam Extremities Exam: Full ROM, Normal Capillary Refill, Normal Inspection. absent: Joint Swelling, Pedal Edema - Neurological Exam Neurological Exam: Alert, Awake. absent: Oriented x3 - Skin Skin Exam: Dry, Intact, Warm Assessment and Plan - Assessment and Plan (Free Text) Assessment: Patient is a 88 y/o F with PMHx significant for Parkinson's Disease, Unspecified Dementia, HTN, HLD, TIA, chronic back pain, and multiple Sacral Decubitus ulcers who presented with increased fatigue and confusion for the past several days. Plan: Severe Sepsis 2/2 UTI vs Sacral Wound Infection - Leukocytosis trending downwards 16.8 from 21.7; remains afebrile. BP is 103/55 - c/w Vancomycin and Merrem as per ID recs - Blood cx grew gram positive cocci - c/w NS IVF at 100mls/hr - f/u Urine and Wound cultures - CXR (07/08): linear infiltrate at the right lung base. Likely represents area of atelectasis. - ID consulted, recs appreciated. Multiple Sacral Decubitus Ulcers with Large Stage 5 Sacral Ulcer - Surgery team is planning for debridement today - c/w empiric antibiotics as per ID recs - c/w Air Mattress - c/w frequent turns and repositioning - Wound Care Referral Hx of Dysphagia with PEG in place - Surgical team is planning for PEG tube replacement today since it is draining dark black residue - NPO Diet - S/S eval Hypokalemia - K is 2.9 again today; repleted. Repeat labs for the afternoon. AMS with Hx of Dementia - currently AAOx1 - c/w home Namenda GT Hx of HLD - c/w home Lipitor GT Hx of TIA - c/w home Plavix GT Hx of HTN - Holding home Cozaar in setting of hypotension GI Prophylaxis: Pepcid DVT Prophylaxis: Lovenox Diet: NPO Code Status: Full Code Palliative care is on board Dispo: Plan for debridement and PEG tube replacement today. Will continue to monitor patient. Case was discussed and reviewed with Attending Physician, Dr. Nieves <Artemio Nieves - Last Filed: 07/10/18 18:16> Objective - Vital Signs/Intake and Output Vital Signs (last 24 hours): Temp Pulse Resp BP Pulse Ox 98.2 F 91 H 18 110/55 L 95 07/10/18 13:45 07/10/18 17:39 07/10/18 13:45 07/10/18 13:45 07/10/18 13:45 Intake and Output: 07/10/18 07/10/18 06:59 18:59 Intake Total 0 0 Output Total 775 Balance -775 0 - Medications Medications: Current Medications Albuterol/Ipratropium (Duoneb 3 Mg/0.5 Mg (3 Ml) Ud) 3 ml IH Q4 PRN PRN Reason: Wheezing Atorvastatin Calcium (Lipitor) 20 mg GT DAILY [facility] Last Admin: 07/10/18 10:33 Dose: Not Given Clopidogrel Bisulfate (Plavix) 75 mg GT DAILY [facility] Last Admin: 07/09/18 10:01 Dose: Not Given Enoxaparin Sodium (Lovenox) 30 mg SC DAILY [facility]; Protocol Last Admin: 07/09/18 10:08 Dose: 30 mg Famotidine (Pepcid) 20 mg IVP DAILY [facility] Last Admin: 07/10/18 10:33 Dose: Not Given Vancomycin HCl (Vancomycin 1gm) 1 gm in 250 mls @ 167 mls/hr IVPB Q12H [facility]; Protocol Last Admin: 07/10/18 05:15 Dose: 167 mls/hr Meropenem (Merrem Iv 1 Gm Premix) 1 gm in 50 mls @ 100 mls/hr IVPB Q8 [facility]; Protocol Last Admin: 07/10/18 15:52 Dose: 100 mls/hr Potassium Chloride 40 meq/ (Sodium Chloride) 1,020 mls @ 75 mls/hr IV .[id number] [facility] Last Admin: 07/10/18 10:34 Dose: Not Given Losartan Potassium (Cozaar) 50 mg GT DAILY [facility] Memantine (Namenda) 5 mg GT BID [facility] Last Admin: 07/10/18 10:33 Dose: Not Given Metoclopramide HCl (Reglan) 10 mg IV ONCE PRN PRN Reason: Nausea/Vomiting Sodium Hypochlorite (Dakins Solution 0.25%) 0 ml TOP DAILY [facility] Last Admin: 07/10/18 10:33 Dose: Not Given Vitamin A (Vitamin A & D Oint Ud Foilpak) 1 ea TOP Q2 PRN PRN Reason: Dry mouth Last Admin: 07/09/18 10:03 Dose: 1 ea Zinc Sulfate (Zinc Sulfate 220 Mg Cap) 220 mg GT DAILY [facility] Last Admin: 07/10/18 10:35 Dose: Not Given - Labs Labs: 07/10/18 07:30 07/10/18 07:30 PT 15.3 SECONDS (9.4-12.5) H 07/10/18 07:30 INR 1.32 07/10/18 07:30 APTT 37.9 Seconds (25.1-36.5) H 07/10/18 07:30 Attending/Attestation - Attestation I have personally seen and examined this patient.: Yes I have fully participated in the care of the patient.: Yes I have reviewed all pertinent clinical information, including history, physical exam and plan: Yes Notes (Text): 07/10/18 18:15 88 year old female with past medical history of Parkinson's disease, dementia, hypertension, TIA, s/p PEG and multiple sacral decubitus ulcers who presented with sepsis likely secondary to UTI and sacral decubitus ulcers. Continue with iv antibiotics as per ID. BCX is positive for gram positive cocci. Leukocyotosis is improving. Procalcitonin is elevated. Surgery is also following and patient is for debridement, wound vac and PEG tube replacement today. Will replete and repeat potassium. Palliative care evaluation was appreciated as well. Overall prognosis is guarded. Artemio Nieves MD Hospitalist.
--- NOTE | 2018-07-11 00:45 | OP ---
PROCEDURE DATE: 07/10/2018 PREOPERATIVE DIAGNOSES: 1. Nonfunctioning gastrostomy tube. 2. Unstageable sacral decubitus ulcer. POSTOPERATIVE DIAGNOSES: 1. Nonfunctioning gastrostomy tube. 2. Unstageable stage IV sacral decubitus ulcer. OPERATIONS PERFORMED: 1. Gastrostomy tube exchange confirmed with x-ray. 2. Sacral debridement of skin, soft tissue, and muscle. 3. Wound vacuum-assisted closure placement. SURGEON: Jason Norman MD STORE DETECTIVE: Josue House DO TYPE OF ANESTHESIA: General. ESTIMATED BLOOD LOSS: 8 mL. INDICATIONS: This is an 88-year-old female, who presented to [facility]] with severe sacral decubitus ulcer, which was clearly infected. Decision was made with the account of family members to have this patient go to the OR. During the time of the examination, the G-tube was noted to have dark specks, which looked like it indicated mold. G-tube was nonfunctioning at this time. Past medical history for this patient is significant for hypertension, hyperlipidemia, TIA, chronic back pain, and multiple decubitus ulcers. The informed consent was obtained from family member, explaining the risks of this procedure. Decision was taken to take the patient to the operating room. DESCRIPTION OF PROCEDURE: The patient was taken to the operating room, placed in supine position. At this time, a time-out was taken, confirming the patient, procedure, and verifying the operative site. The patient was placed under general anesthesia. At this time, the G-tube was prepped with Betadine. A J-guidewire was placed and the old G-tube was removed. A 24-Nepali Kangaroo G-tube was placed over the guidewire. Placement was confirmed with Gastrografin and x-ray. It was noted that there was Gastrografin refluxing into the esophagus and then back down into the stomach. At this time, the patient was then laid left lateral decubitus, exposing the multiple decubitus over the sacrum and lower back. It was noted that it was pretty severe, malodorous stench that was observed. The patient was prepped and draped with Betadine in the usual sterile fashion. At this time, an incision was made, removing necrotic tissue. Wide excision with debridement of the necrotic decubitus ulcer was taken down to the presacral fascia and healthy tissue. All necrotic tissues were removed with both sharp using heavy and #15 blade. Electrocautery was used to obtain appropriate hemostasis. Then at this time, VERSAJET was used at the soft tissue and muscle assuring that appropriate healthy tissue was obtained. At the end of the sharp debridement, it was noted that the patient had three separate areas of ulcers that were cleaned appropriately, first over the sacrum extending to the left was measuring 15 cm x 10 cm x 2.5 cm deep. Moving low further off to the right, it was measured at 7 cm x 8 cm and extending superiorly was the smallest, measuring approximately 3 x 4 cm. Attention was taken back to the sacrum and the extensive debridement. Irrigation was used with combination of Dakin's and normal saline. A wound VAC was then placed using a silver sponge. A good seal was observed at this time. The patient was awoken from anesthesia and taken to the postanesthesia care unit in stable condition. At the end of the procedure, all counts were correct. Dr. Norman was present through the entirety of this case. Josue House DO Jason Norman MD
[2018-07-11] MEDS: Meropenem IV 1 gm in NS 1 GM/50 ML BAG IVPB SCH ×3 (05:23→22:24)
[2018-07-11] MEDS: Vancomycin 1gm in NS 250ml 1 GM/250 ML BAG IVPB SCH ×2 (05:24→17:30)
--- NOTE | 2018-07-11 08:17 | CP.PCM.PN ---
<Pierce Ortiz - Last Filed: 07/11/18 13:06> Subjective - Date & Time of Evaluation Date of Evaluation: 07/11/18 Time of Evaluation: 07:10 - Subjective Subjective: Infectious disease progress note: Pt seen and examined at bedside. No acute events overnight. S/p SDU debridement and G tube exchange yesterday. Denies any pain at this time. 12 Point ROS performed and neg other than stated above. Objective - Vital Signs/Intake and Output Vital Signs (last 24 hours): Temp Pulse Resp BP Pulse Ox 97.0 F L 95 H 20 116/50 L 96 07/11/18 06:00 07/11/18 06:00 07/11/18 06:00 07/11/18 06:00 07/11/18 06:00 Intake and Output: 07/11/18 07/11/18 06:59 18:59 Intake Total 1640 Output Total 65 Balance 1575 - Medications Medications: Current Medications Albuterol/Ipratropium (Duoneb 3 Mg/0.5 Mg (3 Ml) Ud) 3 ml IH Q4 PRN PRN Reason: Wheezing Atorvastatin Calcium (Lipitor) 20 mg GT DAILY [facility] Last Admin: 07/10/18 10:33 Dose: Not Given Clopidogrel Bisulfate (Plavix) 75 mg GT DAILY [facility] Last Admin: 07/09/18 10:01 Dose: Not Given Enoxaparin Sodium (Lovenox) 30 mg SC DAILY [facility]; Protocol Last Admin: 07/09/18 10:08 Dose: 30 mg Famotidine (Pepcid) 20 mg IVP DAILY [facility] Last Admin: 07/10/18 10:33 Dose: Not Given Vancomycin HCl (Vancomycin 1gm) 1 gm in 250 mls @ 167 mls/hr IVPB Q12H [facility]; Protocol Last Admin: 07/11/18 05:24 Dose: 167 mls/hr Meropenem (Merrem Iv 1 Gm Premix) 1 gm in 50 mls @ 100 mls/hr IVPB Q8 [facility]; Protocol Last Admin: 07/11/18 05:23 Dose: 100 mls/hr Potassium Chloride 40 meq/ (Sodium Chloride) 1,020 mls @ 75 mls/hr IV .[id number] [facility] Last Admin: 07/10/18 22:29 Dose: 75 mls/hr Losartan Potassium (Cozaar) 50 mg GT DAILY [facility] Memantine (Namenda) 5 mg GT BID [facility] Last Admin: 07/10/18 18:57 Dose: 5 mg Metoclopramide HCl (Reglan) 10 mg IV ONCE PRN PRN Reason: Nausea/Vomiting Sodium Hypochlorite (Dakins Solution 0.25%) 0 ml TOP DAILY [facility] Last Admin: 07/10/18 10:33 Dose: Not Given Vitamin A (Vitamin A & D Oint Ud Foilpak) 1 ea TOP Q2 PRN PRN Reason: Dry mouth Last Admin: 07/09/18 10:03 Dose: 1 ea Zinc Sulfate (Zinc Sulfate 220 Mg Cap) 220 mg GT DAILY [facility] Last Admin: 07/10/18 10:35 Dose: Not Given - Labs Labs: 07/10/18 07:30 07/10/18 07:30 PT 15.3 SECONDS (9.4-12.5) H 07/10/18 07:30 INR 1.32 07/10/18 07:30 APTT 37.9 Seconds (25.1-36.5) H 07/10/18 07:30 - Constitutional Appears: No Acute Distress - Head Exam Head Exam: ATRAUMATIC, NORMOCEPHALIC - Eye Exam Eye Exam: EOMI, PERRL - ENT Exam ENT Exam: Mucous Membranes Moist - Respiratory Exam Respiratory Exam: Clear to Ausculation Bilateral Additional comments: r/r/w - Cardiovascular Exam Cardiovascular Exam: REGULAR RHYTHM, +S1, +S2 - GI/Abdominal Exam GI & Abdominal Exam: Soft, Normal Bowel Sounds - Extremities Exam Extremities Exam: absent: Calf Tenderness, Pedal Edema - Neurological Exam Neurological Exam: Alert, Awake, Oriented x3 - Psychiatric Exam Psychiatric exam: Normal Mood - Skin Skin Exam: Dry, Warm Additional comments: SDU with dressing in place s/p debridement Assessment and Plan - Assessment and Plan (Free Text) Assessment: 88 year old female with a PMHx significant for Parkinson's Disease, dementia, HTN, HLD, TIA, chronic back pain, and multiple sacral decubiti who presented with change in mental status and sepsis (tachycardic and hypotensive) 2/2 possibly UTI unlikely from sacral decubiti. S/p debridement and PEG tube repl acement yesterday. - UA was positive for LE - Procal elevated 0.58 - Follow up OR findings and cultures. - Follow up GPC clusters identification and sensitivities in the blood. Repeat blood cx. - Wound cx sacrum showed rare gram + cocci and Gram neg parker, f/u identification and sensitivities - Blood cx x 1 showed gram + cocci in clusters, - Repeat blood cx - Cont abx with Vanc and Karen - Cont to monitor Case and plan was reviewed and discussed with Dr Francisco. <Miles Francisco - Last Filed: 07/11/18 20:50> Objective - Vital Signs/Intake and Output Vital Signs (last 24 hours): Temp Pulse Resp BP Pulse Ox 97.5 F L 90 18 137/69 96 07/11/18 18:00 07/11/18 18:00 07/11/18 18:00 07/11/18 18:00 07/11/18 06:00 Intake and Output: 07/11/18 07/12/18 18:59 06:59 Intake Total 1145 Output Total 251 Balance 894 - Medications Medications: Current Medications Albuterol/Ipratropium (Duoneb 3 Mg/0.5 Mg (3 Ml) Ud) 3 ml IH Q4 PRN PRN Reason: Wheezing Atorvastatin Calcium (Lipitor) 20 mg GT DAILY [facility] Last Admin: 07/11/18 12:03 Dose: 20 mg Clopidogrel Bisulfate (Plavix) 75 mg GT DAILY [facility] Last Admin: 07/11/18 12:03 Dose: 75 mg Enoxaparin Sodium (Lovenox) 30 mg SC DAILY [facility]; Protocol Last Admin: 07/11/18 15:32 Dose: 30 mg Famotidine (Pepcid) 20 mg IVP DAILY [facility] Last Admin: 07/11/18 12:03 Dose: 20 mg Vancomycin HCl (Vancomycin 1gm) 1 gm in 250 mls @ 167 mls/hr IVPB Q12H [facility]; Protocol Last Admin: 07/11/18 17:30 Dose: 167 mls/hr Meropenem (Merrem Iv 1 Gm Premix) 1 gm in 50 mls @ 100 mls/hr IVPB Q8 [facility]; Protocol Last Admin: 07/11/18 15:33 Dose: 100 mls/hr Losartan Potassium (Cozaar) 50 mg GT DAILY [facility] Memantine (Namenda) 5 mg GT BID [facility] Last Admin: 07/11/18 17:30 Dose: 5 mg Metoclopramide HCl (Reglan) 10 mg IV ONCE PRN PRN Reason: Nausea/Vomiting Sodium Hypochlorite (Dakins Solution 0.25%) 0 ml TOP DAILY [facility] Last Admin: 07/11/18 15:32 Dose: 1 mg Vitamin A (Vitamin A & D Oint Ud Foilpak) 1 ea TOP Q2 PRN PRN Reason: Dry mouth Last Admin: 07/09/18 10:03 Dose: 1 ea Zinc Sulfate (Zinc Sulfate 220 Mg Cap) 220 mg GT DAILY [facility] Last Admin: 07/11/18 12:03 Dose: 220 mg - Labs Labs: 07/11/18 09:00 07/11/18 09:00 PT 15.3 SECONDS (9.4-12.5) H 07/10/18 07:30 INR 1.32 07/10/18 07:30 APTT 37.9 Seconds (25.1-36.5) H 07/10/18 07:30 Assessment and Plan - Assessment and Plan (Free Text) Assessment: Infectious diseases Attending Physician Attestation Patient seen and examined, discussed with medical reviewer. I have reviewed the patient's history of present illness, past medical, social, personal and family histories, pertinent physical exam findings, course so far in this hospital admission, pertinent laboratory and imaging results. I agree with the above findings, assessment and plan. In addition, continue Vancomycin and Merrem for patient with sacral decubitus ulcer, infected S/P debridement. Follow up OR cultures. Patient also with gram positive cocci bacteremia - unclear source. Awaiting identification and sensitivities and follow up repeat blood cx.
[2018-07-11 09:04] LABS: HEMOGLOBIN 8.3 g/dL (12.0-16.0); MEAN CELL VOLUME 79.6 fl (80.0-105.0); MEAN CORPUSCULAR HGB CONC 32.7 g/dl (31.0-37.0); MEAN PLATELET VOLUME 7.5 fl (7.0-11.0); RBC 3.19 10^6/uL (3.5-6.1); RED CELL DISTRIBUTION WIDTH 15.2 % (11.5-14.5); WHITE BLOOD COUNT 18.7 10^3/uL (4.5-11.0)
[2018-07-11 09:50] LABS: ALB/GLOB RATIO 0.7 (1.1-1.8); ALT/SGPT 26 U/L (7-56); AST/SGOT 27 U/L (14-36); BLOOD UREA NITROGEN 13 mg/dL (7-21); CALCIUM 7.5 mg/dL (8.4-10.5); GFR NON-AFRICAN AMERICAN > 60
--- NOTE | 2018-07-11 12:39 | CP.PCM.PN ---
<Unruly Artis - Last Filed: 07/11/18 12:48> Subjective - Date & Time of Evaluation Date of Evaluation: 07/11/18 Time of Evaluation: 08:00 - Subjective Subjective: Unruly Artis PGY1 Medicine Progress Note for Dr. Nieves Patient was seen and examined at bedside this morning. AAOx1 and poor historian. Wound vac is in place from sacral debridement yesterday. Vital signs are stable. PEG tube was also replaced by surgery and tube feeds are currently running. Otherwise, no adverse overnight events. Objective - Vital Signs/Intake and Output Vital Signs (last 24 hours): Temp Pulse Resp BP Pulse Ox 97.0 F L 95 H 20 116/50 L 96 07/11/18 06:00 07/11/18 06:00 07/11/18 06:00 07/11/18 06:00 07/11/18 06:00 Intake and Output: 07/11/18 07/11/18 06:59 18:59 Intake Total 1640 Output Total 65 Balance 1575 - Medications Medications: Current Medications Albuterol/Ipratropium (Duoneb 3 Mg/0.5 Mg (3 Ml) Ud) 3 ml IH Q4 PRN PRN Reason: Wheezing Atorvastatin Calcium (Lipitor) 20 mg GT DAILY [facility] Last Admin: 07/11/18 12:03 Dose: 20 mg Clopidogrel Bisulfate (Plavix) 75 mg GT DAILY [facility] Last Admin: 07/11/18 12:03 Dose: 75 mg Enoxaparin Sodium (Lovenox) 30 mg SC DAILY [facility]; Protocol Last Admin: 07/09/18 10:08 Dose: 30 mg Famotidine (Pepcid) 20 mg IVP DAILY [facility] Last Admin: 07/11/18 12:03 Dose: 20 mg Vancomycin HCl (Vancomycin 1gm) 1 gm in 250 mls @ 167 mls/hr IVPB Q12H [facility]; Protocol Last Admin: 07/11/18 05:24 Dose: 167 mls/hr Meropenem (Merrem Iv 1 Gm Premix) 1 gm in 50 mls @ 100 mls/hr IVPB Q8 [facility]; Protocol Last Admin: 07/11/18 05:23 Dose: 100 mls/hr Losartan Potassium (Cozaar) 50 mg GT DAILY [facility] Memantine (Namenda) 5 mg GT BID [facility] Last Admin: 07/11/18 12:03 Dose: 5 mg Metoclopramide HCl (Reglan) 10 mg IV ONCE PRN PRN Reason: Nausea/Vomiting Sodium Hypochlorite (Dakins Solution 0.25%) 0 ml TOP DAILY [facility] Last Admin: 07/10/18 10:33 Dose: Not Given Vitamin A (Vitamin A & D Oint Ud Foilpak) 1 ea TOP Q2 PRN PRN Reason: Dry mouth Last Admin: 07/09/18 10:03 Dose: 1 ea Zinc Sulfate (Zinc Sulfate 220 Mg Cap) 220 mg GT DAILY [facility] Last Admin: 07/11/18 12:03 Dose: 220 mg - Labs Labs: 07/11/18 09:00 07/11/18 09:00 PT 15.3 SECONDS (9.4-12.5) H 07/10/18 07:30 INR 1.32 07/10/18 07:30 APTT 37.9 Seconds (25.1-36.5) H 07/10/18 07:30 - Constitutional Appears: No Acute Distress - Head Exam Head Exam: ATRAUMATIC, NORMAL INSPECTION, NORMOCEPHALIC - Eye Exam Eye Exam: EOMI, Normal appearance - ENT Exam ENT Exam: Mucous Membranes Moist - Respiratory Exam Respiratory Exam: Clear to Ausculation Bilateral. absent: Rales, Rhonchi, Wheezes - Cardiovascular Exam Cardiovascular Exam: RRR, +S1, +S2 - GI/Abdominal Exam GI & Abdominal Exam: Soft, Normal Bowel Sounds. absent: Tenderness Additional comments: G-tube in place. Replaced by surgical team yesterday. Tube feeds in effect. - Extremities Exam Extremities Exam: Full ROM, Normal Capillary Refill, Normal Inspection. absent: Joint Swelling, Pedal Edema - Neurological Exam Neurological Exam: Alert, Awake, Normal Gait. absent: Oriented x3 - Skin Skin Exam: Dry, Intact, Warm Additional comments: Sacral decubitis ulcer - Stage 5. Wound vac is in place for drainage. Assessment and Plan - Assessment and Plan (Free Text) Assessment: Patient is a 88 y/o F with PMHx significant for Parkinson's Disease, Unspecified Dementia, HTN, HLD, TIA, chronic back pain, and multiple Sacral Decubitus ulcers who presented with increased fatigue and confusion for the past several days. Patient is s/p sacral decubitus ulcer debridement with wound vac in place and replacement of PEG tube. Plan: Sepsis 2/2 Sacral Decubitus Ulcers vs UTI - s/p debridement of Stage 5 Sacral Ulcer - Stage 5 sacral ulcer debridement w/ wound vac on 07/10 - c/w IV antibiotics as per ID recs; c/w Vancomycin and Merrem - Hip decubitus and left shoulder decubitus grew gram negative rods - Blood cx grew gram positive cocci - UCx multiple species, contaminated - Leukocytosis 18.7 from 16.8; remains afebrile. BP is normotensive. - ID on consult. Recs appreciated. - Surgery on consult. Recs appreciated. - c/w Air Mattress - c/w frequent turns and repositioning - Wound Care Referral Hx of Dysphagia with PEG tube - s/p PEG tube replacement - Surgical team replaced PEG tube on 07/10 - Patient is now on tube feeds - IVF discontinued Hypokalemia - improved - K is 3.8 - Previously 2.9 prior to repletion AMS with Hx of Dementia - currently AAOx1 - c/w home Namenda GT Hx of HLD - c/w home Lipitor GT Hx of TIA - c/w home Plavix GT Hx of HTN - Holding home Cozaar in setting of hypotension - Normotensive GI Prophylaxis: Pepcid DVT Prophylaxis: Lovenox Code Status: Full Code Palliative care is on board Dispo: Continue to monitor patient. She is s/p debridement of Stage 5 sacral ulcer w/ wound vac and PEG tube replacement on 07/10. Case was discussed and reviewed with Attending Physician, Dr. Nieves <Artemio Nieves - Last Filed: 07/11/18 15:08> Objective - Vital Signs/Intake and Output Vital Signs (last 24 hours): Temp Pulse Resp BP Pulse Ox 98 F 89 18 117/56 L 96 07/11/18 12:00 07/11/18 12:00 07/11/18 12:00 07/11/18 12:00 07/11/18 06:00 Intake and Output: 07/11/18 07/11/18 06:59 18:59 Intake Total 1640 Output Total 65 Balance 1575 - Medications Medications: Current Medications Albuterol/Ipratropium (Duoneb 3 Mg/0.5 Mg (3 Ml) Ud) 3 ml IH Q4 PRN PRN Reason: Wheezing Atorvastatin Calcium (Lipitor) 20 mg GT DAILY [facility] Last Admin: 07/11/18 12:03 Dose: 20 mg Clopidogrel Bisulfate (Plavix) 75 mg GT DAILY [facility] Last Admin: 07/11/18 12:03 Dose: 75 mg Enoxaparin Sodium (Lovenox) 30 mg SC DAILY [facility]; Protocol Last Admin: 07/09/18 10:08 Dose: 30 mg Famotidine (Pepcid) 20 mg IVP DAILY [facility] Last Admin: 07/11/18 12:03 Dose: 20 mg Vancomycin HCl (Vancomycin 1gm) 1 gm in 250 mls @ 167 mls/hr IVPB Q12H [facility]; Protocol Last Admin: 07/11/18 05:24 Dose: 167 mls/hr Meropenem (Merrem Iv 1 Gm Premix) 1 gm in 50 mls @ 100 mls/hr IVPB Q8 [facility]; Protocol Last Admin: 07/11/18 05:23 Dose: 100 mls/hr Losartan Potassium (Cozaar) 50 mg GT DAILY [facility] Memantine (Namenda) 5 mg GT BID [facility] Last Admin: 07/11/18 12:03 Dose: 5 mg Metoclopramide HCl (Reglan) 10 mg IV ONCE PRN PRN Reason: Nausea/Vomiting Sodium Hypochlorite (Dakins Solution 0.25%) 0 ml TOP DAILY [facility] Last Admin: 07/10/18 10:33 Dose: Not Given Vitamin A (Vitamin A & D Oint Ud Foilpak) 1 ea TOP Q2 PRN PRN Reason: Dry mouth Last Admin: 07/09/18 10:03 Dose: 1 ea Zinc Sulfate (Zinc Sulfate 220 Mg Cap) 220 mg GT DAILY [facility] Last Admin: 07/11/18 12:03 Dose: 220 mg - Labs Labs: 07/11/18 09:00 07/11/18 09:00 PT 15.3 SECONDS (9.4-12.5) H 07/10/18 07:30 INR 1.32 07/10/18 07:30 APTT 37.9 Seconds (25.1-36.5) H 07/10/18 07:30 Attending/Attestation - Attestation I have personally seen and examined this patient.: Yes I have fully participated in the care of the patient.: Yes I have reviewed all pertinent clinical information, including history, physical exam and plan: Yes Notes (Text): 07/11/18 15:02 88 year old female with past medical history of Parkinson's disease, dementia, hypertension, TIA, s/p PEG and multiple sacral decubitus ulcers who presented with sepsis likely secondary to sacral decubitus ulcers and possible UTI. Continue with iv antibiotics as per ID. BCX is positive for gram positive cocci. Repeat blood culture is pending. UCx was contaminated. Wound culture from left shoulder grew proteus mirabilis, enterococcus faecalis and corynebacterium species. Wound culture from hip and left buttock grew acinobacter baumannii and proteus mirabilis. Leukocyotosis is slowly improving. Procalcitonin was elevated. Surgery is also following and patient is s/p debr idement, wound vac and PEG tube replacement yesterday. Niece is at bedside and updated on hospital course; awaiting son to come by. Will also discuss with adult protective caseworker / manager social services. Overall prognosis is guarded. Artemio Nieves MD Hospitalist.
[2018-07-11] MEDS: Dakin's Topical 0.25%-Half Strength (480 ml) TOP SCH (15:32)
[2018-07-11] MEDS: Enoxaparin 30 mg Syringe SC SCH (15:32)
--- NOTE | 2018-07-11 18:00 | CARD ---
APPROVED REPORT Date of service: 07/11/2018 EXAM: Two-dimensional and M-mode echocardiogram with Doppler and color Doppler. INDICATION Infection:Rule out subacute bacterial endocarditis 2D DIMENSIONS Left Atrium (2D)3.5 (1.6-4.0cm)IVSd0.8 (0.7-1.1cm) LVDd3.9 (3.9-5.9cm)LVOT Diameter1.7 (1.8-2.4cm) PWd0.7 (0.7-1.1cm)LVDs2.4 (2.5-4.0cm) FS (%) 39.8 %LVEF (%)71.1 (>50%) M-Mode DIMENSIONS Aortic Root2.50 (2.2-3.7cm)Aortic Cusp Exc.0.90 (1.5-2.0cm) Aortic Valve AoV Peak Rkeaesll848.0cm/sAoV VTI51.5cmAO Peak GR.29mmHg LVOT Peak Cicqzkhb114.0cm/sLVOT VTI22.70cmAO Mean GR.13mmHg DION (VMAX)1.23at6IIH (VTI)1.00cm2 Mitral Valve MV E Doezrily81.5cm/sMV A Wddkuxps39.3cm/sE/A ratio0.8 TDI Lateral E' Peak V9.16cm/sMedial E' Peak V10.30cm/sE/Lateral E'8.4 E/Medial E'7.4 Pulmonary Valve PV Peak Vcsjsgjf63.5cm/sPV Peak Grad.2mmHg Tricuspid Valve TR Peak Ngozzwzj831jj/sRAP EONAQYXY94zhWiHG Peak Gr.67mmHg [id number] LEFT VENTRICLE The left ventricle is normal size. There is normal left ventricular wall thickness. The left ventricular function is normal. The left ventricular ejection fraction is within the normal range. There is normal LV segmental wall motion. RIGHT VENTRICLE The right ventricle is normal size. The right ventricular systolic function is normal. ATRIA The left atrium size is normal. The right atrium is moderately dilated. The interatrial septum is intact with no evidence for an atrial septal defect. AORTIC VALVE The aortic valve is mildly calcified. No aortic regurgitation is present. There is mild valvular aortic stenosis. MITRAL VALVE The mitral valve is mildly thickened. Mitral regurgitation is moderate. TRICUSPID VALVE The tricuspid valve is normal in structure. There is severe tricuspid regurgitation. There is severe pulmonary hypertension. PULMONIC VALVE The pulmonary valve is normal in structure. There is moderate pulmonic valvular regurgitation. GREAT VESSELS The aortic root is normal in size. The IVC is normal in size and collapses >50% with inspiration. PERICARDIAL EFFUSION There is moderate left pleural effusion. There is a small pericardial effusion. <Conclusion> Dilated LA. Normal LV size and systolic function. Mild . Moderate MR. Severe TR. Severe pulmonary HTN with estimated RVSP of 77 mm Hg recorded. Small pericardial effusion. Moderate ledft pleural effusion with organized thrombus or mass noted. No clear valular vegetations seen, but if clinical suspicion for endocarditis is high, consider [facility] imaging.
[2018-07-12] MEDS: Vancomycin 1gm in NS 250ml 1 GM/250 ML BAG IVPB SCH (05:48)
[2018-07-12] MEDS: Meropenem IV 1 gm in NS 1 GM/50 ML BAG IVPB SCH ×3 (05:48→22:32)
[2018-07-12 08:58] LABS: BASO # 0.02 K/mm3 (0.0-2.0); BASO % 0.1 % (0.0-3.0); EOS # 0.3 (0.0-0.7); EOS % 1.9 % (1.5-5.0); GRAN # 13.46 (1.4-6.5); GRAN % 81.7 % (50.0-68.0); HEMOGLOBIN 8.7 g/dL (12.0-16.0); LYMPH % 12.3 % (22.0-35.0); MEAN CELL VOLUME 80.6 fl (80.0-105.0); MEAN CORPUSCULAR HGB CONC 32.2 g/dl (31.0-37.0); MEAN PLATELET VOLUME 7.8 fl (7.0-11.0); MONO # 0.7 (0.1-0.6); RBC 3.35 10^6/uL (3.5-6.1); RED CELL DISTRIBUTION WIDTH 15.7 % (11.5-14.5); WHITE BLOOD COUNT 16.5 10^3/uL (4.5-11.0)
[2018-07-12] MEDS: Enoxaparin 30 mg Syringe SC SCH (09:31)
[2018-07-12] MEDS: Dakin's Topical 0.25%-Half Strength (480 ml) TOP SCH (09:31)
[2018-07-12 09:39] LABS: ALB/GLOB RATIO 0.6 (1.1-1.8); ALBUMIN 2.1 g/dL (3.0-4.8); ALT/SGPT 20 U/L (7-56); AST/SGOT 46 U/L (14-36); BLOOD UREA NITROGEN 17 mg/dL (7-21); CALCIUM 7.6 mg/dL (8.4-10.5); GFR NON-AFRICAN AMERICAN 59
[2018-07-12] MEDS ORDERED: Magnesium Sulfate 2 gm/50 ml 2 GM/50 ML BAG IVPB ONE (10:06)
--- NOTE | 2018-07-12 12:54 | CP.PCM.PN ---
<Pierce Ortiz - Last Filed: 07/12/18 12:50> Subjective - Date & Time of Evaluation Date of Evaluation: 07/12/18 Time of Evaluation: 09:00 - Subjective Subjective: Infectious disease progress note: Pt seen and examined at bedside. No acute events overnight. Patient is more lethargic this am. Denies any pain. 12 Point ROS performed and neg other than stated above. Objective - Vital Signs/Intake and Output Vital Signs (last 24 hours): Temp Pulse Resp BP Pulse Ox 98.2 F 98 H 20 151/74 H 98 07/12/18 11:49 07/12/18 11:49 07/12/18 11:49 07/12/18 11:49 07/12/18 06:00 Intake and Output: 07/12/18 07/12/18 06:59 18:59 Intake Total 1100 Output Total 551 Balance 549 - Medications Medications: Current Medications Albuterol/Ipratropium (Duoneb 3 Mg/0.5 Mg (3 Ml) Ud) 3 ml IH Q4 PRN PRN Reason: Wheezing Atorvastatin Calcium (Lipitor) 20 mg GT DAILY [facility] Last Admin: 07/12/18 09:32 Dose: 20 mg Clopidogrel Bisulfate (Plavix) 75 mg GT DAILY [facility] Last Admin: 07/12/18 09:32 Dose: 75 mg Enoxaparin Sodium (Lovenox) 30 mg SC DAILY [facility]; Protocol Last Admin: 07/12/18 09:31 Dose: 30 mg Famotidine (Pepcid) 20 mg IVP DAILY [facility] Last Admin: 07/12/18 09:32 Dose: 20 mg Meropenem (Merrem Iv 1 Gm Premix) 1 gm in 50 mls @ 100 mls/hr IVPB Q8 [facility]; Pr otocol Last Admin: 07/12/18 05:48 Dose: 100 mls/hr Losartan Potassium (Cozaar) 50 mg GT DAILY [facility] Memantine (Namenda) 5 mg GT BID [facility] Last Admin: 07/12/18 09:32 Dose: 5 mg Metoclopramide HCl (Reglan) 10 mg IV ONCE PRN PRN Reason: Nausea/Vomiting Sodium Hypochlorite (Dakins Solution 0.25%) 0 ml TOP DAILY [facility] Last Admin: 07/12/18 09:31 Dose: 1 applic Vitamin A (Vitamin A & D Oint Ud Foilpak) 1 ea TOP Q2 PRN PRN Reason: Dry mouth Last Admin: 07/09/18 10:03 Dose: 1 ea Zinc Sulfate (Zinc Sulfate 220 Mg Cap) 220 mg GT DAILY [facility] Last Admin: 07/12/18 09:32 Dose: 220 mg - Labs Labs: 07/12/18 08:15 07/12/18 08:15 PT 15.3 SECONDS (9.4-12.5) H 07/10/18 07:30 INR 1.32 07/10/18 07:30 APTT 37.9 Seconds (25.1-36.5) H 07/10/18 07:30 - Constitutional Appears: No Acute Distress - Head Exam Head Exam: ATRAUMATIC, NORMOCEPHALIC - Eye Exam Eye Exam: EOMI - ENT Exam ENT Exam: Mucous Membranes Moist - Respiratory Exam Respiratory Exam: Clear to Ausculation Bilateral Additional comments: no r/r/w - Cardiovascular Exam Cardiovascular Exam: REGULAR RHYTHM, +S1, +S2 - GI/Abdominal Exam GI & Abdominal Exam: Soft, Normal Bowel Sounds - Extremities Exam Extremities Exam: absent: Calf Tenderness, Pedal Edema - Neurological Exam Neurological Exam: Alert, Awake - Psychiatric Exam Psychiatric exam: Normal Mood - Skin Skin Exam: Dry, Warm Additional comments: multiple SDU Assessment and Plan - Assessment and Plan (Free Text) Assessment: 88 year old female with a PMHx significant for Parkinson's Disease, dementia, HTN, HLD, TIA, chronic back pain, and multiple sacral decubiti who presented with change in mental status and sepsis (tachycardic and hypotensive) 2/2 possibly UTI unlikely from sacral decubiti. S/p debridement and PEG tube replacement yesterday. - Wound cx of sacrum/hip possible contaminates - Blood cx x 1 showed gram + cocci in clusters, - f/u Repeat blood cx - Cont abx with Vanc and Karen - Cont to monitor - Follow up OR findings and cultures. - Follow up GPC clusters identification and sensitivities in the blood. Repeat blood cx. Case and plan was reviewed and discussed with Dr Francisco. <Miles Francisco - Last Filed: 07/12/18 16:48> Objective - Vital Signs/Intake and Output Vital Signs (last 24 hours): Temp Pulse Resp BP Pulse Ox 98.2 F 98 H 20 151/74 H 98 07/12/18 11:49 07/12/18 11:49 07/12/18 11:49 07/12/18 11:49 07/12/18 06:00 Intake and Output: 07/12/18 07/12/18 06:59 18:59 Intake Total 1100 Output Total 551 Balance 549 - Medications Medications: Current Medications Albuterol/Ipratropium (Duoneb 3 Mg/0.5 Mg (3 Ml) Ud) 3 ml IH Q4 PRN PRN Reason: Wheezing Atorvastatin Calcium (Lipitor) 20 mg GT DAILY [facility] Last Admin: 07/12/18 09:32 Dose: 20 mg Clopidogrel Bisulfate (Plavix) 75 mg GT DAILY [facility] Last Admin: 07/12/18 09:32 Dose: 75 mg Enoxaparin Sodium (Lovenox) 30 mg SC DAILY [facility]; Protocol Last Admin: 07/12/18 09:31 Dose: 30 mg Famotidine (Pepcid) 20 mg IVP DAILY [facility] Last Admin: 07/12/18 09:32 Dose: 20 mg Meropenem (Merrem Iv 1 Gm Premix) 1 gm in 50 mls @ 100 mls/hr IVPB Q8 [facility]; Protocol Last Admin: 07/12/18 15:08 Dose: 100 mls/hr Losartan Potassium (Cozaar) 50 mg GT DAILY [facility] Memantine (Namenda) 5 mg GT BID [facility] Last Admin: 07/12/18 09:32 Dose: 5 mg Metoclopramide HCl (Reglan) 10 mg IV ONCE PRN PRN Reason: Nausea/Vomiting Sodium Hypochlorite (Dakins Solution 0.25%) 0 ml TOP DAILY [facility] Last Admin: 07/12/18 09:31 Dose: 1 applic Vitamin A (Vitamin A & D Oint Ud Foilpak) 1 ea TOP Q2 PRN PRN Reason: Dry mouth Last Admin: 07/09/18 10:03 Dose: 1 ea Zinc Sulfate (Zinc Sulfate 220 Mg Cap) 220 mg GT DAILY [facility] Last Admin: 07/12/18 09:32 Dose: 220 mg - Labs Labs: 07/12/18 08:15 07/12/18 08:15 PT 15.3 SECONDS (9.4-12.5) H 07/10/18 07:30 INR 1.32 07/10/18 07:30 APTT 37.9 Seconds (25.1-36.5) H 07/10/18 07:30 Assessment and Plan - Assessment and Plan (Free Text) Assessment: Infectious diseases Attending Physician Attestation Patient seen and examined, discussed with medical territory manager. I have reviewed the patient's history of present illness, past medical, social, personal and family histories, pertinent physical exam findings, course so far in this hospital admission, pertinent laboratory and imaging results. I agree with the above findings, assessment and plan. In addition, continue Vancomycin and Merrem for patient with sacral decubitus ulcers, infected S/P debridement. Follow up final OR culture results. Follow up repeat blood, identification of the bacteria in the blood.
--- NOTE | 2018-07-12 13:12 | CT ---
Date of service: 07/12/2018 PROCEDURE: CT Chest without contrast HISTORY: lung mass? COMPARISON: 08/11/2017 TECHNIQUE: Contiguous axial images were obtained through the chest without intravenous contrast enhancement. Sagittal and coronal reconstructions were performed. Radiation dose: Total exam DLP = 257.08 mGy-cm. This CT exam was performed using one or more of the following dose reduction techniques: Automated exposure control, adjustment of the mA and/or kV according to patient size, and/or use of iterative reconstruction technique. FINDINGS: LUNGS: There is an alveolar infiltrate in the right middle lobe. There is consolidation adjacent to the pleural effusions in both lower lobes. Moderate size bilateral pleural effusions MEDIASTINUM: Unremarkable thoracic aorta. No aneurysm. Normal sized heart. Main pulmonary artery unremarkable. No vascular congestion. No lymphadenopathy. Aortic calcification PLEURA: Moderate size bilateral pleural effusions BONES: No fracture. No destructive lesion. UPPER ABDOMEN: Grossly unremarkable. OTHER FINDINGS: None. IMPRESSION: There is an alveolar infiltrate in the right middle lobe. There is consolidation adjacent to the pleural effusions in both lower lobes. Moderate size bilateral pleural effusions
--- NOTE | 2018-07-12 15:11 | CP.PCM.PN ---
<Yuliana Macias - Last Filed: 07/12/18 15:11> Subjective - Date & Time of Evaluation Date of Evaluation: 07/12/18 Time of Evaluation: 13:00 - Subjective Subjective: Yuliana Macias, PGY2, Medicine Progress Note for Dr Nieves: Patient seen and examined at bedside. No acute events overnight. Patient is alert, nodding head to questions. Denies fevers, chills, pain, nausea, vomiting. Patient tolerating her tube feeds well. Objective - Vital Signs/Intake and Output Vital Signs (last 24 hours): Temp Pulse Resp BP Pulse Ox 98.2 F 98 H 20 151/74 H 98 07/12/18 11:49 07/12/18 11:49 07/12/18 11:49 07/12/18 11:49 07/12/18 06:00 Intake and Output: 07/12/18 07/12/18 06:59 18:59 Intake Total 1100 Output Total 551 Balance 549 - Medications Medications: Current Medications Albuterol/Ipratropium (Duoneb 3 Mg/0.5 Mg (3 Ml) Ud) 3 ml IH Q4 PRN PRN Reason: Wheezing Atorvastatin Calcium (Lipitor) 20 mg GT DAILY [facility] Last Admin: 07/12/18 09:32 Dose: 20 mg Clopidogrel Bisulfate (Plavix) 75 mg GT DAILY [facility] Last Admin: 07/12/18 09:32 Dose: 75 mg Enoxaparin Sodium (Lovenox) 30 mg SC DAILY [facility]; Protocol Last Admin: 07/12/18 09:31 Dose: 30 mg Famotidine (Pepcid) 20 mg IVP DAILY [facility] Last Admin: 07/12/18 09:32 Dose: 20 mg Meropenem (Merrem Iv 1 Gm Premix) 1 gm in 50 mls @ 100 mls/hr IVPB Q8 [facility]; Protocol Last Admin: 07/12/18 05:48 Dose: 100 mls/hr Losartan Potassium (Cozaar) 50 mg GT DAILY [facility] Memantine (Namenda) 5 mg GT BID [facility] Last Admin: 07/12/18 09:32 Dose: 5 mg Metoclopramide HCl (Reglan) 10 mg IV ONCE PRN PRN Reason: Nausea/Vomiting Sodium Hypochlorite (Dakins Solution 0.25%) 0 ml TOP DAILY [facility] Last Admin: 07/12/18 09:31 Dose: 1 applic Vitamin A (Vitamin A & D Oint Ud Foilpak) 1 ea TOP Q2 PRN PRN Reason: Dry mouth Last Admin: 07/09/18 10:03 Dose: 1 ea Zinc Sulfate (Zinc Sulfate 220 Mg Cap) 220 mg GT DAILY [facility] Last Admin: 07/12/18 09:32 Dose: 220 mg - Labs Labs: 07/12/18 08:15 07/12/18 08:15 PT 15.3 SECONDS (9.4-12.5) H 07/10/18 07:30 INR 1.32 07/10/18 07:30 APTT 37.9 Seconds (25.1-36.5) H 07/10/18 07:30 - Constitutional Appears: Non-toxic, No Acute Distress, Chronically Ill - Head Exam Head Exam: ATRAUMATIC, NORMOCEPHALIC - Eye Exam Eye Exam: EOMI, PERRL. absent: Conjunctival injection, Nystagmus, Scleral icterus Pupil Exam: NORMAL ACCOMODATION, PERRL - ENT Exam ENT Exam: Mucous Membranes Moist - Respiratory Exam Respiratory Exam: Decreased Breath Sounds - Cardiovascular Exam Cardiovascular Exam: RRR, +S1, +S2. absent: Murmur - GI/Abdominal Exam GI & Abdominal Exam: Soft, Normal Bowel Sounds. absent: Tenderness, Organomegaly Additional comments: G tube in place. - Extremities Exam Extremities Exam: absent: Calf Tenderness, Pedal Edema - Neurological Exam Neurological Exam: Alert, Awake - Psychiatric Exam Psychiatric exam: Normal Affect - Skin Skin Exam: Dry, Normal Color, Warm Additional comments: sacral decubitus ulcer - stage 5, wound vac in place. Assessment and Plan - Assessment and Plan (Free Text) Assessment: 88 year old female with PMHx significant for Parkinson's Disease, Unspecified Dementia, HTN, HLD, TIA, chronic back pain, and multiple Sacral Decubitus ulce rs, admitted for AMS, severe sepsis, found to have UTI, decubiti ulcers. Patient also has 1 of 2 bottles showing gram positive bacteremia, sacral ulcers polymicrobial. f/u repeat blood cultures. Patient is s/p sacral decub ulcer debridement with wound vac and replacement of PEG tube. Patient is tolerating PEG tube feeds: Sepsis 2/2 Sacral Decubitus Ulcers vs UTI - s/p debridement of Stage 5 Sacral Ulcer: - Stage 5 sacral ulcer debridement w/ wound vac on 07/10 - ID on board. C/w Vanc and Merrem. Will discuss with ID regarding duration and antibiotics. - Blood culture 07/08: 06/27 grew Peptostrep Asaccharolyticus - Left decub buttock and hip cultures grew acinetobacter baumannii and proteus mirabilis. - Left shoulder decub culture grew proteus mirabilis, enterococcus faecalis, corynebacterium - Sacral decub culture grew proteus mirabilis - Echo shows EF 71%. Dilated left atrium. Moderate MR. Severe TR. Severe pulmonary HTN with estimated RVSP 77 mmHg. Small pericardial effusion. No clear vegetation. Moderate left pleural effusion with organized thrombus or mass noted in the lung. will f/u with CAT chest. - Chest CT showed right middle lobe infiltrate (seen previously on admission CXR). Moderate bilateral pleural effusions. - urine culture neg - f/u repeat blood cultures - Surgery recs appreciated. Wound vac in place. - Air mattress, frequent turning and positioning to avoid further decub ulcers. - Wound care on board. PEG tube replacement: - patient currently tolerating tube feeds, no residuals - Surgery monitoring. appreciate recs. Hx of Dementia: - c/w home Namenda Hx of HLD: - c/w home Lipitor GT Hx of TIA: - c/w home Plavix GT Hx of HTN: - patient currently normotensive - Hold home Cozaar in setting of prior hypotension. Will monitor. GI Prophylaxis: Pepcid DVT Prophylaxis: Lovenox Code Status: Full Code Palliative care is on board Dispo: awaiting As per social work, patient can be accepted to [facility] if family is in agreement. Will discuss with family. Case was discussed and reviewed with Attending Physician, Dr. Nieves <Artemio Nieves - Last Filed: 07/12/18 16:59> Objective - Vital Signs/Intake and Output Vital Signs (last 24 hours): Temp Pulse Resp BP Pulse Ox 98.2 F 98 H 20 151/74 H 98 07/12/18 11:49 07/12/18 11:49 07/12/18 11:49 07/12/18 11:49 07/12/18 06:00 Intake and Output: 07/12/18 07/12/18 06:59 18:59 Intake Total 1100 Output Total 551 Balance 549 - Medications Medications: Current Medications Albuterol/Ipratropium (Duoneb 3 Mg/0.5 Mg (3 Ml) Ud) 3 ml IH Q4 PRN PRN Reason: Wheezing Atorvastatin Calcium (Lipitor) 20 mg GT DAILY [facility] Last Admin: 07/12/18 09:32 Dose: 20 mg Clopidogrel Bisulfate (Plavix) 75 mg GT DAILY [facility] Last Admin: 07/12/18 09:32 Dose: 75 mg Enoxaparin Sodium (Lovenox) 30 mg SC DAILY [facility]; Protocol Last Admin: 07/12/18 09:31 Dose: 30 mg Famotidine (Pepcid) 20 mg IVP DAILY [facility] Last Admin: 07/12/18 09:32 Dose: 20 mg Meropenem (Merrem Iv 1 Gm Premix) 1 gm in 50 mls @ 100 mls/hr IVPB Q8 [facility]; Protocol Last Admin: 07/12/18 15:08 Dose: 100 mls/hr Losartan Potassium (Cozaar) 50 mg GT DAILY [facility] Memantine (Namenda) 5 mg GT BID [facility] Last Admin: 07/12/18 09:32 Dose: 5 mg Metoclopramide HCl (Reglan) 10 mg IV ONCE PRN PRN Reason: Nausea/Vomiting Sodium Hypochlorite (Dakins Solution 0.25%) 0 ml TOP DAILY [facility] Last Admin: 07/12/18 09:31 Dose: 1 applic Vitamin A (Vitamin A & D Oint Ud Foilpak) 1 ea TOP Q2 PRN PRN Reason: Dry mouth Last Admin: 07/09/18 10:03 Dose: 1 ea Zinc Sulfate (Zinc Sulfate 220 Mg Cap) 220 mg GT DAILY [facility] Last Admin: 07/12/18 09:32 Dose: 220 mg - Labs Labs: 07/12/18 08:15 07/12/18 08:15 PT 15.3 SECONDS (9.4-12.5) H 07/10/18 07:30 INR 1.32 07/10/18 07:30 APTT 37.9 Seconds (25.1-36.5) H 07/10/18 07:30 Attending/Attestation - Attestation I have personally seen and examined this patient.: Yes I have fully participated in the care of the patient.: Yes I have reviewed all pertinent clinical information, including history, physical exam and plan: Yes Notes (Text): 07/12/18 16:53 88 year old female with past medical history of Parkinson's disease, dementia, hypertension, TIA, s/p PEG and multiple sacral decubitus ulcers who presented with sepsis likely secondary to sacral decubitus ulcers and possible UTI. Edwige nue with iv antibiotics as per ID. BCX is positive for gram positive cocci. Repeat blood culture is pending. UCx was contaminated. Wound culture from left shoulder grew proteus mirabilis, enterococcus faecalis and corynebacterium species. Wound culture from hip and left buttock grew acinobacter baumannii and proteus mirabilis. Leukocyotosis is slowly improving. Procalcitonin was elevated. Surgery is also following and patient is s/p debridement, wound vac and PEG tube replacement earlier this week. Echocardiogram showed small pericardial effusion, no clear vegetation, moderate left pleural effusion with ?organized thrombus or mass in the lung. This was followed up with CT chest xiomara wed showed right middle lobe infiltrate and moderate bilateral pleural effusions. Will follow up with case fitter / drug abuse social worker. Overall prognosis is guarded. Artemio Nieves MD Hospitalist.
[2018-07-13] MEDS: Meropenem IV 1 gm in NS 1 GM/50 ML BAG IVPB SCH ×3 (05:48→21:33)
--- NOTE | 2018-07-13 08:23 | CP.PCM.PN ---
<Yuliana Macias - Last Filed: 07/13/18 16:26> Subjective - Date & Time of Evaluation Date of Evaluation: 07/13/18 Time of Evaluation: 08:23 - Subjective Subjective: Yuliana Macias, PGY2, Medicine Progress Note for Dr Nieves: Patient seen and examined at bedside. No acute events overnight. Patient is alert, awake, oriented to self. Denies fevers, chills, nausea, vomiting. Patient is tolerating her tube feeds well. Patient had wound vac changed this AM with surgery team. Objective - Vital Signs/Intake and Output Vital Signs (last 24 hours): Temp Pulse Resp BP Pulse Ox 97.6 F 90 19 152/66 H 98 07/12/18 17:57 07/12/18 17:57 07/12/18 17:57 07/12/18 17:57 07/12/18 06:00 Intake and Output: 07/13/18 07/13/18 06:59 18:59 Intake Total 700 Output Total 380 Balance 320 - Medications Medications: Current Medications Albuterol/Ipratropium (Duoneb 3 Mg/0.5 Mg (3 Ml) Ud) 3 ml IH Q4 PRN PRN Reason: Wheezing Amino Acid Protein (Prostat 15 G Packet) 15 gm GT BID [facility] Atorvastatin Calcium (Lipitor) 20 mg GT DAILY [facility] Last Admin: 07/12/18 09:32 Dose: 20 mg Clopidogrel Bisulfate (Plavix) 75 mg GT DAILY [facility] Last Admin: 07/12/18 09:32 Dose: 75 mg Enoxaparin Sodium (Lovenox) 30 mg SC DAILY [facility]; Protocol Last Admin: 07/12/18 09:31 Dose: 30 mg Famotidine (Pepcid) 20 mg IVP DAILY [facility] Last Admin: 07/12/18 09:32 Dose: 20 mg Meropenem (Merrem Iv 1 Gm Premix) 1 gm in 50 mls @ 100 mls/hr IVPB Q8 [facility]; Protocol Last Admin: 07/13/18 05:48 Dose: 100 mls/hr Losartan Potassium (Cozaar) 50 mg GT DAILY [facility] Memantine (Namenda) 5 mg GT BID [facility] Last Admin: 07/12/18 18:17 Dose: 5 mg Metoclopramide HCl (Reglan) 10 mg IV ONCE PRN PRN Reason: Nausea/Vomiting Sodium Hypochlorite (Dakins Solution 0.25%) 0 ml TOP DAILY [facility] Last Admin: 07/12/18 09:31 Dose: 1 applic Vitamin A (Vitamin A & D Oint Ud Foilpak) 1 ea TOP Q2 PRN PRN Reason: Dry mouth Last Admin: 07/09/18 10:03 Dose: 1 ea Zinc Sulfate (Zinc Sulfate 220 Mg Cap) 220 mg GT DAILY [facility] Last Admin: 07/12/18 09:32 Dose: 220 mg - Labs Labs: 07/12/18 08:15 07/12/18 08:15 PT 15.3 SECONDS (9.4-12.5) H 07/10/18 07:30 INR 1.32 07/10/18 07:30 APTT 37.9 Seconds (25.1-36.5) H 07/10/18 07:30 - Additional Findings Additional findings: - Constitutional Appears: Non-toxic, No Acute Distress, Chronically Ill - Head Exam Head Exam: ATRAUMATIC, NORMOCEPHALIC - Eye Exam Eye Exam: EOMI, PERRL. absent: Conjunctival injection, Nystagmus, Scleral icterus Pupil Exam: NORMAL ACCOMODATION, PERRL - ENT Exam ENT Exam: Mucous Membranes Moist - Respiratory Exam Respiratory Exam: Decreased Breath Sounds - Cardiovascular Exam Cardiovascular Exam: RRR, +S1, +S2. absent: Murmur - GI/Abdominal Exam GI & Abdominal Exam: Soft, Normal Bowel Sounds. absent: Tenderness, Organomegaly Additional comments: G tube in place. - Extremities Exam Extremities Exam: absent: Calf Tenderness, Pedal Edema - Neurological Exam Neurological Exam: Alert, Awake - Psychiatric Exam Psychiatric exam: Normal Affect - Skin Skin Exam: Dry, Normal Color, Warm Additional comments: sacral decubitus ulcer - stage 5, wound vac in place. Assessment and Plan - Assessment and Plan (Free Text) Assessment: 88 year old female with PMHx significant for Parkinson's Disease, Unspecified Dementia, HTN, HLD, TIA, chronic back pain, and multiple Sacral Decubitus ulcers, admitted for AMS, severe sepsis, found to have UTI, decubiti ulcers. Initial blood cultures (1 of 2 bottles) positive for bacteremia, received antibiotics. Repeat blood cultures negative so far. Sacral ulcers in OR polymicrobial. Patient is s/p sacral decub ulcer debridement with wound vac and replacement of PEG tube. Patient is tolerating PEG tube feeds: Sepsis 2/2 Sacral Decubitus Ulcers vs UTI - s/p debridement of Stage 5 Sacral Ulcer: - Stage 5 sacral ulcer debridement w/ wound vac on 07/10 - ID on board. C/w Merrem. Added Amikacin. Will discuss with ID regarding duration and antibiotics. - Blood culture 07/08: 1/2 grew Peptostrep Asaccharolyticus - Repeat blood cultures 07/12: 2/2 negative x 24 hrs - Left decub buttock and hip cultures grew acinetobacter baumannii and proteus mirabilis. - Left shoulder decub culture grew proteus mirabilis, enterococcus faecalis, corynebacterium - Sacral decub culture grew proteus mirabilis - Echo shows EF 71%. Dilated left atrium. Moderate MR. Severe TR. Severe pulmonary HTN with estimated RVSP 77 mmHg. Small pericardial effusion. No clear vegetation. Moderate left pleural effusion with organized thrombus or mass noted in the lung. will f/u with CAT chest. - Chest CT showed right middle lobe infiltrate (seen previously on admission CXR). Moderate bilateral pleural effusions. - urine culture neg - f/u repeat blood cultures - Surgery recs appreciated. Wound vac in place. - Air mattress, frequent turning and positioning to avoid further decub ulcers. - Wound care on board. PEG tube replacement: - patient currently tolerating tube feeds, no residuals - Surgery monitoring. appreciate recs. Hx of Dementia: - c/w home Namenda Hx of HLD: - c/w home Lipitor GT Hx of TIA: - c/w home Plavix GT Hx of HTN: - patient currently normotensive - Hold home Cozaar in setting of prior hypotension. Will monitor. GI Prophylaxis: Pepcid DVT Prophylaxis: Lovenox Code Status: Full Code Palliative care is on board Dispo: As per social work lecturer, patient can be accepted to [facility] if family is in agreement. Will discuss with family. Case was discussed and reviewed with Attending Physician, Dr. Nieves <Artemio Nieves - Last Filed: 07/13/18 16:56> Objective - Vital Signs/Intake and Output Vital Signs (last 24 hours): Temp Pulse Resp BP Pulse Ox 97.6 F 83 18 165/89 H 98 07/13/18 12:00 07/13/18 12:00 07/13/18 12:00 07/13/18 12:00 07/12/18 06:00 Intake and Output: 07/13/18 07/13/18 06:59 18:59 Intake Total 700 Output Total 380 Balance 320 - Medications Medications: Current Medications Albuterol/Ipratropium (Duoneb 3 Mg/0.5 Mg (3 Ml) Ud) 3 ml IH Q4 PRN PRN Reason: Wheezing Amino Acid Protein (Prostat 15 G Packet) 15 gm GT BID [facility] Last Admin: 07/13/18 12:26 Dose: 15 gm Atorvastatin Calcium (Lipitor) 20 mg GT DAILY [facility] Last Admin: 07/13/18 11:34 Dose: 20 mg Clopidogrel Bisulfate (Plavix) 75 mg GT DAILY [facility] Last Admin: 07/13/18 11:34 Dose: 75 mg Enoxaparin Sodium (Lovenox) 30 mg SC DAILY [facility]; Protocol Last Admin: 07/13/18 11:35 Dose: 30 mg Famotidine (Pepcid) 20 mg IVP DAILY [facility] Last Admin: 07/13/18 11:37 Dose: 20 mg Meropenem (Merrem Iv 1 Gm Premix) 1 gm in 50 mls @ 100 mls/hr IVPB Q8 [facility]; Protocol Last Admin: 07/13/18 14:10 Dose: 100 mls/hr Losartan Potassium (Cozaar) 50 mg GT DAILY [facility] Last Admin: 07/13/18 11:41 Dose: 50 mg Memantine (Namenda) 5 mg GT BID [facility] Last Admin: 07/13/18 11:34 Dose: 5 mg Sodium Hypochlorite (Dakins Solution 0.25%) 0 ml TOP DAILY [facility] Last Admin: 07/13/18 11:25 Dose: 1 applic Vitamin A (Vitamin A & D Oint Ud Foilpak) 1 ea TOP Q2 PRN PRN Reason: Dry mouth Last Admin: 07/09/18 10:03 Dose: 1 ea Zinc Sulfate (Zinc Sulfate 220 Mg Cap) 220 mg GT DAILY [facility] Last Admin: 07/13/18 11:34 Dose: 220 mg - Labs Labs: 07/13/18 08:20 07/13/18 08:20 PT 15.3 SECONDS (9.4-12.5) H 07/10/18 07:30 INR 1.32 07/10/18 07:30 APTT 37.9 Seconds (25.1-36.5) H 07/10/18 07:30 Attending/Attestation - Attestation I have personally seen and examined this patient.: Yes I have fully participated in the care of the patient.: Yes I have reviewed all pertinent clinical information, including history, physical exam and plan: Yes Notes (Text): 07/13/18 16:51 88 year old female with past medical history of Parkinson's disease, dementia, hypertension, TIA, s/p PEG and multiple sacral decubitus ulcers who presented with sepsis likely secondary to sacral decubitus ulcers and possible UTI. Continue with iv antibiotics as per ID. Initial BCx was positive for peptostrep asaccharolyticus. Repeat blood culture is pending. UCx was contaminated. W ound culture from left shoulder grew proteus mirabilis, enterococcus faecalis and corynebacterium species. Wound culture from hip and left buttock grew acinobacter baumannii and proteus mirabilis. Leukocyotosis is slowly improving. Procalcitonin was elevated. Surgery is also following and patient is s/p debridement, wound vac and PEG tube replacement earlier this week. Echocardiogram showed small pericardial effusion, no clear vegetation, moderate left pleural effusion with ?organized thrombus or mass in the lung. This was followed up with CT chest showed showed right middle lobe infiltrate and moderate bilateral pleural effusions. Continue with iv antibiotics as per ID. Continue with wound care / vac as per surgery. Will discuss with ID antibiotics and duration for d/c planning. CMx/Sw working on d/c planning to [facility]. Overall prognosis is guarded. Artemio Nieves MD Hospitalist.
[2018-07-13 08:44] LABS: BASO # 0.02 K/mm3 (0.0-2.0); BASO % 0.1 % (0.0-3.0); EOS # 0.3 (0.0-0.7); EOS % 1.9 % (1.5-5.0); GRAN # 12.95 (1.4-6.5); GRAN % 82.3 % (50.0-68.0); LYMPH % 12.8 % (22.0-35.0); MEAN CELL VOLUME 80.5 fl (80.0-105.0); MEAN CORPUSCULAR HEMOGLOBIN 25.1 pg (25.0-35.0); MEAN CORPUSCULAR HGB CONC 31.1 g/dl (31.0-37.0); MEAN PLATELET VOLUME 7.9 fl (7.0-11.0); MONO # 0.5 (0.1-0.6); MONO % 2.9 % (1.0-6.0); RBC 3.59 10^6/uL (3.5-6.1); RED CELL DISTRIBUTION WIDTH 15.6 % (11.5-14.5); WHITE BLOOD COUNT 15.8 10^3/uL (4.5-11.0)
[2018-07-13 08:56] LABS: ALB/GLOB RATIO 0.6 (1.1-1.8); ALBUMIN 2.1 g/dL (3.0-4.8); ALT/SGPT 24 U/L (7-56); AST/SGOT 28 U/L (14-36); BLOOD UREA NITROGEN 24 mg/dL (7-21); CALCIUM 7.9 mg/dL (8.4-10.5); GFR NON-AFRICAN AMERICAN 47
--- NOTE | 2018-07-13 10:47 | CP.PCM.PN ---
Subjective - Date & Time of Evaluation Date of Evaluation: 07/13/18 Time of Evaluation: 10:44 - Subjective Subjective: Surgery PT seen and examined. Wound vac changed this AM. Tolerated it well. No acute events. Objective - Vital Signs/Intake and Output Vital Signs (last 24 hours): Temp Pulse Resp BP Pulse Ox 97.6 F 90 19 152/66 H 98 07/12/18 17:57 07/12/18 17:57 07/12/18 17:57 07/12/18 17:57 07/12/18 06:00 Intake and Output: 07/13/18 07/13/18 06:59 18:59 Intake Total 700 Output Total 380 Balance 320 - Medications Medications: Current Medications Albuterol/Ipratropium (Duoneb 3 Mg/0.5 Mg (3 Ml) Ud) 3 ml IH Q4 PRN PRN Reason: Wheezing Amino Acid Protein (Prostat 15 G Packet) 15 gm GT BID [facility] Atorvastatin Calcium (Lipitor) 20 mg GT DAILY [facility] Last Admin: 07/12/18 09:32 Dose: 20 mg Clopidogrel Bisulfate (Plavix) 75 mg GT DAILY [facility] Last Admin: 07/12/18 09:32 Dose: 75 mg Enoxaparin Sodium (Lovenox) 30 mg SC DAILY [facility]; Protocol Last Admin: 07/12/18 09:31 Dose: 30 mg Famotidine (Pepcid) 20 mg IVP DAILY [facility] Last Admin: 07/12/18 09:32 Dose: 20 mg Meropenem (Merrem Iv 1 Gm Premix) 1 gm in 50 mls @ 100 mls/hr IVPB Q8 [facility]; Protocol Last Admin: 07/13/18 05:48 Dose: 100 mls/hr Losartan Potassium (Cozaar) 50 mg GT DAILY [facility] Memantine (Namenda) 5 mg GT BID [facility] Last Admin: 07/12/18 18:17 Dose: 5 mg Metoclopramide HCl (Reglan) 10 mg IV ONCE PRN PRN Reason: Nausea/Vomiting Sodium Hypochlorite (Dakins Solution 0.25%) 0 ml TOP DAILY [facility] Last Admin: 07/12/18 09:31 Dose: 1 applic Vitamin A (Vitamin A & D Oint Ud Foilpak) 1 ea TOP Q2 PRN PRN Reason: Dry mouth Last Admin: 07/09/18 10:03 Dose: 1 ea Zinc Sulfate (Zinc Sulfate 220 Mg Cap) 220 mg GT DAILY [facility] Last Admin: 07/12/18 09:32 Dose: 220 mg - Labs Labs: 07/13/18 08:20 07/13/18 08:20 PT 15.3 SECONDS (9.4-12.5) H 07/10/18 07:30 INR 1.32 07/10/18 07:30 APTT 37.9 Seconds (25.1-36.5) H 07/10/18 07:30 - Constitutional Appears: No Acute Distress - Head Exam Head Exam: ATRAUMATIC, NORMAL INSPECTION, NORMOCEPHALIC - Eye Exam Eye Exam: EOMI, Normal appearance, PERRL Pupil Exam: NORMAL ACCOMODATION, PERRL - ENT Exam ENT Exam: Mucous Membranes Moist - Neck Exam Neck Exam: Normal Inspection - Respiratory Exam Respiratory Exam: NORMAL BREATHING PATTERN - Cardiovascular Exam Cardiovascular Exam: REGULAR RHYTHM - GI/Abdominal Exam GI & Abdominal Exam: Soft (G tube in place) - Rectal Exam Additional comments: [id number] sacral ulcer and another [id number] back ulcer. - Extremities Exam Extremities Exam: Full ROM - Back Exam Back Exam: NORMAL INSPECTION - Neurological Exam Neurological Exam: Awake, CN II-XII Intact, Oriented x3 - Psychiatric Exam Psychiatric exam: Normal Affect, Normal Mood - Skin Skin Exam: Erythema, Warm. absent: Dry, Intact, Normal Color Assessment and Plan - Assessment and Plan (Free Text) Assessment: Sacral ulcers -continue home wound vac for 3 month set up for home wound vac VNS for wound vac change q3 or q4 days. JAMES Norman
[2018-07-13] MEDS ORDERED: WATER IVPB ONE (11:00)
[2018-07-13] MEDS ORDERED: DEXTROSE 5% IVPB ONE (11:00)
[2018-07-13] MEDS ORDERED: AMIKACIN IVPB ONE (11:00)
[2018-07-13] MEDS: Dakin's Topical 0.25%-Half Strength (480 ml) TOP SCH (11:25)
[2018-07-13] MEDS: Enoxaparin 30 mg Syringe SC SCH (11:35)
[2018-07-13] MEDS: Prostat 15 g packet GT SCH ×2 (12:26→17:45)
--- NOTE | 2018-07-13 15:04 | CP.PCM.PN ---
Subjective - Date & Time of Evaluation Date of Evaluation: 07/13/18 Time of Evaluation: 11:30 - Subjective Subjective: Still not very responsive, no fevers, not in distress, no diarrhea. Wound vacuum in place Objective - Vital Signs/Intake and Output Vital Signs (last 24 hours): Temp Pulse Resp BP Pulse Ox 97.6 F 90 19 152/66 H 98 07/12/18 17:57 07/12/18 17:57 07/12/18 17:57 07/12/18 17:57 07/12/18 06:00 Intake and Output: 07/13/18 07/13/18 06:59 18:59 Intake Total 700 Output Total 380 Balance 320 - Medications Medications: Current Medications Albuterol/Ipratropium (Duoneb 3 Mg/0.5 Mg (3 Ml) Ud) 3 ml IH Q4 PRN PRN Reason: Wheezing Amino Acid Protein (Prostat 15 G Packet) 15 gm GT BID [facility] Atorvastatin Calcium (Lipitor) 20 mg GT DAILY [facility] Last Admin: 07/12/18 09:32 Dose: 20 mg Clopidogrel Bisulfate (Plavix) 75 mg GT DAILY [facility] Last Admin: 07/12/18 09:32 Dose: 75 mg Enoxaparin Sodium (Lovenox) 30 mg SC DAILY [facility]; Protocol Last Admin: 07/12/18 09:31 Dose: 30 mg Famotidine (Pepcid) 20 mg IVP DAILY [facility] Last Admin: 07/12/18 09:32 Dose: 20 mg Meropenem (Merrem Iv 1 Gm Premix) 1 gm in 50 mls @ 100 mls/hr IVPB Q8 [facility]; Protocol Last Admin: 07/13/18 05:48 Dose: 100 mls/hr Losartan Potassium (Cozaar) 50 mg GT DAILY [facility] Memantine (Namenda) 5 mg GT BID [facility] Last Admin: 07/12/18 18:17 Dose: 5 mg Sodium Hypochlorite (Dakins Solution 0.25%) 0 ml TOP DAILY [facility] Last Admin: 07/12/18 09:31 Dose: 1 applic Vitamin A (Vitamin A & D Oint Ud Foilpak) 1 ea TOP Q2 PRN PRN Reason: Dry mouth Last Admin: 07/09/18 10:03 Dose: 1 ea Zinc Sulfate (Zinc Sulfate 220 Mg Cap) 220 mg GT DAILY [facility] Last Admin: 07/12/18 09:32 Dose: 220 mg - Labs Labs: 07/13/18 08:20 07/13/18 08:20 PT 15.3 SECONDS (9.4-12.5) H 07/10/18 07:30 INR 1.32 07/10/18 07:30 APTT 37.9 Seconds (25.1-36.5) H 07/10/18 07:30 - Constitutional Appears: Chronically Ill - Head Exam Head Exam: NORMAL INSPECTION - Respiratory Exam Respiratory Exam: Decreased Breath Sounds - Cardiovascular Exam Cardiovascular Exam: +S1, +S2 - GI/Abdominal Exam GI & Abdominal Exam: Soft. absent: Tenderness - Back Exam Additional comments: wound vacuum in place over the sacral area Assessment and Plan - Assessment and Plan (Free Text) Plan: Assessment sepsis due to sacral decubitus ulcer growing drug resistant Acinetobacter and Proteus, as well as UTI with Proteus R/O recurrent aspiration diarrhea, probably antibiotic associated Parkinson's disease history of TIA HTN dyslipidemia decubitus ulcer dementia history of eyelid surgery Plan continue Vancomycin, Merrem and will add a dose of IV Amikacin follow up further plans of Surgery will continue to monitor clinically overall prognosis is poor
[2018-07-14] MEDS: Meropenem IV 1 gm in NS 1 GM/50 ML BAG IVPB SCH ×2 (05:51→22:05)
[2018-07-14] MEDS ORDERED: MEROPENEM 500 MG in NS 500 MG/50 ML BAG IVPB SCH (07:15)
[2018-07-14] MEDS: Vancomycin 1gm in NS 250ml 1 GM/250 ML BAG IVPB SCH ×2 (07:46→18:15)
[2018-07-14 09:14] LABS: BASO # 0.04 K/mm3 (0.0-2.0); BASO % 0.3 % (0.0-3.0); EOS # 0.3 (0.0-0.7); GRAN # 10.39 (1.4-6.5); GRAN % 75.2 % (50.0-68.0); HEMOGLOBIN 8.5 g/dL (12.0-16.0); LYMPH # 2.6 (1.2-3.4); LYMPH % 18.7 % (22.0-35.0); MEAN CELL VOLUME 80.4 fl (80.0-105.0); MEAN CORPUSCULAR HGB CONC 32.3 g/dl (31.0-37.0); MEAN PLATELET VOLUME 7.7 fl (7.0-11.0); MONO # 0.5 (0.1-0.6); MONO % 3.8 % (1.0-6.0); RBC 3.27 10^6/uL (3.5-6.1); RED CELL DISTRIBUTION WIDTH 15.7 % (11.5-14.5); WHITE BLOOD COUNT 13.8 10^3/uL (4.5-11.0)
[2018-07-14] MEDS: Enoxaparin 30 mg Syringe SC SCH (09:37)
[2018-07-14] MEDS: Prostat 15 g packet GT SCH ×2 (09:37→18:13)
[2018-07-14 10:07] LABS: ALB/GLOB RATIO 0.6 (1.1-1.8); CALCIUM 7.9 mg/dL (8.4-10.5)
--- NOTE | 2018-07-14 12:51 | CP.PCM.PN ---
<Yuliana Macias - Last Filed: 07/14/18 12:39> Subjective - Date & Time of Evaluation Date of Evaluation: 07/14/18 Time of Evaluation: 12:39 - Subjective Subjective: Yuliana Macias, PGY2, Medicine Progress Note for Dr Nieves: Patient seen and examined at bedside. No acute events overnight. Patient is alert, awake, oriented to self. No overnight fevers, vomiting. Patient is tolerating her tube feeds well. Wound vac in place. Objective - Vital Signs/Intake and Output Vital Signs (last 24 hours): Temp Pulse Resp BP Pulse Ox 97.8 F 94 H 20 157/83 H 99 07/14/18 11:46 07/14/18 11:46 07/14/18 11:46 07/14/18 11:46 07/14/18 06:00 Intake and Output: 07/14/18 07/14/18 06:59 18:59 Intake Total 200 Output Total 1080 Balance -880 - Medications Medications: Current Medications Albuterol/Ipratropium (Duoneb 3 Mg/0.5 Mg (3 Ml) Ud) 3 ml IH Q4 PRN PRN Reason: Wheezing Amino Acid Protein (Prostat 15 G Packet) 15 gm GT BID [facility] Last Admin: 07/13/18 17:45 Dose: 15 gm Atorvastatin Calcium (Lipitor) 20 mg GT DAILY [facility] Last Admin: 07/14/18 09:37 Dose: 20 mg Clopidogrel Bisulfate (Plavix) 75 mg GT DAILY [facility] Last Admin: 07/14/18 09:37 Dose: 75 mg Enoxaparin Sodium (Lovenox) 30 mg SC DAILY [facility]; Protocol Last Admin: 07/14/18 09:37 Dose: 30 mg Famotidine (Pepcid) 20 mg IVP DAILY [facility] Last Admin: 07/14/18 09:38 Dose: 20 mg Meropenem/Sodium Chloride (Merrem Iv 500 Mg/Ns 50 Ml) 500 mg in 50 mls @ 100 mls/hr IVPB Q8 [facility]; Protocol Stop: 07/15/18 06:29 Last Admin: 07/14/18 09:34 Dose: 100 mls/hr Vancomycin HCl (Vancomycin 1gm) 1 gm in 250 mls @ 167 mls/hr IVPB Q12H [facility]; Protocol Last Admin: 07/14/18 07:46 Dose: 167 mls/hr Losartan Potassium (Cozaar) 50 mg GT DAILY [facility] Last Admin: 07/14/18 09:37 Dose: 50 mg Memantine (Namenda) 5 mg GT BID [facility] Last Admin: 07/14/18 09:37 Dose: 5 mg Sodium Hypochlorite (Dakins Solution 0.25%) 0 ml TOP DAILY [facility] Last Admin: 07/13/18 11:25 Dose: 1 applic Vitamin A (Vitamin A & D Oint Ud Foilpak) 1 ea TOP Q2 PRN PRN Reason: Dry mouth Last Admin: 07/09/18 10:03 Dose: 1 ea Zinc Sulfate (Zinc Sulfate 220 Mg Cap) 220 mg GT DAILY [facility] Last Admin: 07/14/18 09:37 Dose: 220 mg - Labs Labs: 07/14/18 09:00 07/14/18 09:00 PT 15.3 SECONDS (9.4-12.5) H 07/10/18 07:30 INR 1.32 07/10/18 07:30 APTT 37.9 Seconds (25.1-36.5) H 07/10/18 07:30 - Additional Findings Additional findings: - Constitutional Appears: Non-toxic, No Acute Distress, Chronically Ill - Head Exam Head Exam: ATRAUMATIC, NORMOCEPHALIC - Eye Exam Eye Exam: EOMI, PERRL. absent: Conjunctival injection, Nystagmus, Scleral icterus Pupil Exam: NORMAL ACCOMODATION, PERRL - ENT Exam ENT Exam: Mucous Membranes Moist - Respiratory Exam Respiratory Exam: Decreased Breath Sounds - Cardiovascular Exam Cardiovascular Exam: RRR, +S1, +S2. absent: Murmur - GI/Abdominal Exam GI & Abdominal Exam: Soft, Normal Bowel Sounds. absent: Tenderness, Organomegaly Additional comments: G tube in place. - Extremities Exam Extremities Exam: absent: Calf Tenderness, Pedal Edema - Neurological Exam Neurological Exam: Alert, Awake - Psychiatric Exam Psychiatric exam: Normal Affect - Skin Skin Exam: Dry, Normal Color, Warm Additional comments: sacral decubitus ulcer - stage 5, wound vac in place. Assessment and Plan - Assessment and Plan (Free Text) Assessment: 88 year old female with PMHx significant for Parkinson's Disease, Unspecified Dementia, HTN, HLD, TIA, chronic back pain, and multiple Sacral Decubitus ulcers, admitted for AMS, severe sepsis, found to have UTI, decubiti ulcers. Initial blood cultures (1 of 2 bottles) positive for Peptostrep Asachholyticus, received antibiotics. Repeat blood cultures negative so far. Sacral ulcers in OR polymicrobial. Patient is s/p sacral decub ulcer debridement with wound vac and replacement of PEG tube. Patient is tolerating PEG tube feeds: Sepsis 2/2 Sacral Decubitus Ulcers vs UTI - s/p debridement of Stage 5 Sacral Ulcer: - Stage 5 sacral ulcer debridement w/ wound vac on 07/10 - ID on board. C/w Vanc and Merrem, Amikacin. Spoke with Dr Stewart, states that patient will likely need 2 weeks of Merrem IV outpatient (from the date of negative blood culture), still considering about dosage of Amikacin. - Blood culture 07/08: 1/ grew Peptostrep Asaccharolyticus - Repeat blood cultures 07/12: 2/2 negative x 48 hrs - Left decub buttock and hip cultures grew acinetobacter baumannii and proteus mirabilis. - Left shoulder decub culture grew proteus mirabilis, enterococcus faecalis, corynebacterium - Sacral decub culture grew proteus mirabilis - Echo shows EF 71%. Dilated left atrium. Moderate MR. Severe TR. Severe pulmonary HTN with estimated RVSP 77 mmHg. Small pericardial effusion. No clear vegetation. Moderate left pleural effusion with organized thrombus or mass noted in the lung. will f/u with CAT chest. - Chest CT showed right middle lobe infiltrate (seen previously on admission CXR). Moderate bilateral pleural effusions. - urine culture neg - f/u repeat blood cultures - Surgery recs appreciated. Wound vac in place. - Air mattress, frequent turning and positioning to avoid further decub ulcers. - Wound care on board. PEG tube replacement: - patient currently tolerating tube feeds, no residuals - Surgery monitoring. appreciate recs. Hx of Dementia: - c/w home Namenda Hx of HLD: - c/w home Lipitor GT Hx of TIA: - c/w home Plavix GT Hx of HTN: - patient currently normotensive - Hold home Cozaar in setting of prior hypotension. Will monitor. GI Prophylaxis: Pepcid DVT Prophylaxis: Lovenox Code Status: Full Code Palliative care is on board Dispo: As per social media content specialist, patient can be accepted to [facility] if family is in agreement. Will discuss with family. Pending insurance approval. Case was discussed and reviewed with Attending Physician, Dr. Nieves <Artemio Nieves - Last Filed: 07/14/18 13:56> Objective - Vital Signs/Intake and Output Vital Signs (last 24 hours): Temp Pulse Resp BP Pulse Ox 97.8 F 94 H 20 157/83 H 99 07/14/18 11:46 07/14/18 11:46 07/14/18 11:46 07/14/18 11:46 07/14/18 06:00 Intake and Output: 07/14/18 07/14/18 06:59 18:59 Intake Total 200 Output Total 1080 Balance -880 - Medications Medications: Current Medications Albuterol/Ipratropium (Duoneb 3 Mg/0.5 Mg (3 Ml) Ud) 3 ml IH Q4 PRN PRN Reason: Wheezing Amino Acid Protein (Prostat 15 G Packet) 15 gm GT BID [facility] Last Admin: 07/13/18 17:45 Dose: 15 gm Atorvastatin Calcium (Lipitor) 20 mg GT DAILY [facility] Last Admin: 07/14/18 09:37 Dose: 20 mg Clopidogrel Bisulfate (Plavix) 75 mg GT DAILY [facility] Last Admin: 07/14/18 09:37 Dose: 75 mg Enoxaparin Sodium (Lovenox) 30 mg SC DAILY [facility]; Protocol Last Admin: 07/14/18 09:37 Dose: 30 mg Famotidine (Pepcid) 20 mg IVP DAILY [facility] Last Admin: 07/14/18 09:38 Dose: 20 mg Meropenem/Sodium Chloride (Merrem Iv 500 Mg/Ns 50 Ml) 500 mg in 50 mls @ 100 mls/hr IVPB Q8 [facility]; Protocol Stop: 07/15/18 06:29 Last Admin: 07/14/18 09:34 Dose: 100 mls/hr Vancomycin HCl (Vancomycin 1gm) 1 gm in 250 mls @ 167 mls/hr IVPB Q12H [facility]; Protocol Last Admin: 07/14/18 07:46 Dose: 167 mls/hr Losartan Potassium (Cozaar) 50 mg GT DAILY [facility] Last Admin: 07/14/18 09:37 Dose: 50 mg Memantine (Namenda) 5 mg GT BID [facility] Last Admin: 01/19/19 09:37 Dose: 5 mg Sodium Hypochlorite (Dakins Solution 0.25%) 0 ml TOP DAILY [facility] Last Admin: 07/13/18 11:25 Dose: 1 applic Vitamin A (Vitamin A & D Oint Ud Foilpak) 1 ea TOP Q2 PRN PRN Reason: Dry mouth Last Admin: 07/09/18 10:03 Dose: 1 ea Zinc Sulfate (Zinc Sulfate 220 Mg Cap) 220 mg GT DAILY [facility] Last Admin: 07/14/18 09:37 Dose: 220 mg - Labs Labs: 07/14/18 09:00 07/14/18 09:00 PT 15.3 SECONDS (9.4-12.5) H 07/10/18 07:30 INR 1.32 07/10/18 07:30 APTT 37.9 Seconds (25.1-36.5) H 07/10/18 07:30 Attending/Attestation - Attestation I have personally seen and examined this patient.: Yes I have fully participated in the care of the patient.: Yes I have reviewed all pertinent clinical information, including history, physical exam and plan: Yes Notes (Text): 07/14/18 13:54 88 year old female with past medical history of Parkinson's disease, dementia, hypertension, TIA, s/p PEG and multiple sacral decubitus ulcers who presented with sepsis likely secondary to sacral decubitus ulcers and possible UTI. Initial BCx was positive for peptostrep asaccharolyticus. Repeat blood culture is negative to date. UCx was contaminated. Wound culture from left shoulder grew proteus mirabilis, enterococcus faecalis and corynebacterium species. Wound culture from hip and left buttock grew acinobacter baumannii and proteus mirabilis. Leukocyotosis is improving. Procalcitonin was elevated. Continue with iv antibiotics as per ID. Discussed with ID; may need 2 weeks of iv meropenem. Surgery is also following and patient is s/p debridement, wound vac and PEG tube replacement earlier this week. Echocardiogram showed small pericardial effusion, no clear vegetation, moderate left pleural effusion with ? organized thrombus or mass in the lung. This was followed up with CT chest showed showed right middle lobe infiltrate and moderate bilateral pleural effusions. CMx/Sw working on possible d/c planning to [facility]. Overall prognosis is guarded. Artemio Nieves MD Hospitalist.
--- NOTE | 2018-07-14 14:03 | CP.PCM.PN ---
Subjective - Date & Time of Evaluation Date of Evaluation: 07/14/18 Time of Evaluation: 11:35 - Subjective Subjective: Still not very responsive, but not in distress, no fevers. Objective - Vital Signs/Intake and Output Vital Signs (last 24 hours): Temp Pulse Resp BP Pulse Ox 97.6 F 83 18 165/89 H 98 07/13/18 12:00 07/13/18 12:00 07/13/18 12:00 07/13/18 12:00 07/12/18 06:00 Intake and Output: 07/13/18 07/13/18 06:59 18:59 Intake Total 700 Output Total 380 Balance 320 - Medications Medications: Current Medications Albuterol/Ipratropium (Duoneb 3 Mg/0.5 Mg (3 Ml) Ud) 3 ml IH Q4 PRN PRN Reason: Wheezing Amino Acid Protein (Prostat 15 G Packet) 15 gm GT BID [facility] Last Admin: 07/13/18 12:26 Dose: 15 gm Atorvastatin Calcium (Lipitor) 20 mg GT DAILY [facility] Last Admin: 07/13/18 11:34 Dose: 20 mg Clopidogrel Bisulfate (Plavix) 75 mg GT DAILY [facility] Last Admin: 07/13/18 11:34 Dose: 75 mg Enoxaparin Sodium (Lovenox) 30 mg SC DAILY [facility]; Protocol Last Admin: 07/13/18 11:35 Dose: 30 mg Famotidine (Pepcid) 20 mg IVP DAILY [facility] Last Admin: 07/13/18 11:37 Dose: 20 mg Meropenem (Merrem Iv 1 Gm Premix) 1 gm in 50 mls @ 100 mls/hr IVPB Q8 [facility]; Protocol Last Admin: 07/13/18 14:10 Dose: 100 mls/hr Losartan Potassium (Cozaar) 50 mg GT DAILY [facility] Last Admin: 07/13/18 11:41 Dose: 50 mg Memantine (Namenda) 5 mg GT BID [facility] Last Admin: 07/13/18 11:34 Dose: 5 mg Sodium Hypochlorite (Dakins Solution 0.25%) 0 ml TOP DAILY [facility] Last Admin: 07/13/18 11:25 Dose: 1 applic Vitamin A (Vitamin A & D Oint Ud Foilpak) 1 ea TOP Q2 PRN PRN Reason: Dry mouth Last Admin: 01/14/19 10:03 Dose: 1 ea Zinc Sulfate (Zinc Sulfate 220 Mg Cap) 220 mg GT DAILY [facility] Last Admin: 07/13/18 11:34 Dose: 220 mg - Labs Labs: 07/13/18 08:20 07/13/18 08:20 PT 15.3 SECONDS (9.4-12.5) H 07/10/18 07:30 INR 1.32 07/10/18 07:30 APTT 37.9 Seconds (25.1-36.5) H 07/10/18 07:30 - Constitutional Appears: Chronically Ill - Head Exam Head Exam: NORMAL INSPECTION - Respiratory Exam Respiratory Exam: Decreased Breath Sounds - Cardiovascular Exam Cardiovascular Exam: +S1, +S2 - GI/Abdominal Exam GI & Abdominal Exam: Soft. absent: Tenderness Assessment and Plan - Assessment and Plan (Free Text) Plan: Assessment sepsis due to sacral decubitus ulcer growing drug resistant Acinetobacter and Proteus, as well as UTI with Proteus, S/P debridement and placement of wound vacuum, and Peptostrep bacteremia (probably from decubitus ulcer) R/O recurrent aspiration diarrhea, probably antibiotic associated Parkinson's disease history of TIA HTN dyslipidemia decubitus ulcer dementia history of eyelid surgery Plan continue Vancomycin, Merrem and will give another dose of IV Amikacin tomorrow - should get at least 2 weeks of antibiotics from first negative blood cx follow up further plans of Surgery will continue to monitor clinically will check 2D echo overall prognosis is poor
[2018-07-14] MEDS: Dakin's Topical 0.25%-Half Strength (480 ml) TOP SCH (18:14)
[2018-07-15] MEDS: Meropenem IV 1 gm in NS 1 GM/50 ML BAG IVPB SCH ×3 (05:42→21:21)
[2018-07-15 06:55] LABS: ALB/GLOB RATIO 0.6 (1.1-1.8); ALBUMIN 1.9 g/dL (3.0-4.8); CALCIUM 7.8 mg/dL (8.4-10.5)
[2018-07-15 07:10] LABS: BASO # 0.03 K/mm3 (0.0-2.0); BASO % 0.2 % (0.0-3.0); EOS # 0.3 (0.0-0.7); EOS % 1.9 % (1.5-5.0); GRAN # 9.35 (1.4-6.5); HEMOGLOBIN 7.6 g/dL (12.0-16.0); LYMPH # 2.6 (1.2-3.4); LYMPH % 20.1 % (22.0-35.0); MEAN CELL VOLUME 80.4 fl (80.0-105.0); MEAN CORPUSCULAR HEMOGLOBIN 25.7 pg (25.0-35.0); MEAN CORPUSCULAR HGB CONC 31.9 g/dl (31.0-37.0); MONO # 0.8 (0.1-0.6); MONO % 5.8 % (1.0-6.0); RBC 2.96 10^6/uL (3.5-6.1); RED CELL DISTRIBUTION WIDTH 15.9 % (11.5-14.5)
[2018-07-15] MEDS: Vancomycin 1gm in NS 250ml 1 GM/250 ML BAG IVPB SCH ×2 (10:43→20:24)
[2018-07-15] MEDS: Sodium Chloride 0.9% 1,000 ML IV SCH (10:44)
[2018-07-15] MEDS: Enoxaparin 30 mg Syringe SC SCH (10:48)
[2018-07-15] MEDS: Prostat 15 g packet GT SCH ×2 (10:49→18:46)
[2018-07-15] MEDS: Dakin's Topical 0.25%-Half Strength (480 ml) TOP SCH (10:49)
--- NOTE | 2018-07-15 11:15 | CP.PCM.PN ---
<Unruly Artis - Last Filed: 07/15/18 11:22> Subjective - Date & Time of Evaluation Date of Evaluation: 07/15/18 Time of Evaluation: 08:00 - Subjective Subjective: Unruly Artis, PGY1 Medicine Progress Note for Dr. Nieves Patient was seen and examined at bedside this morning. Mental status unchanged, AAOx1. She is alert and awake. No adverse overnight events. Wound vac is in place. She is tolerating tube feeds. Objective - Vital Signs/Intake and Output Vital Signs (last 24 hours): Temp Pulse Resp BP Pulse Ox 98.5 F 90 19 137/62 100 07/15/18 06:00 07/15/18 06:00 07/15/18 06:00 07/15/18 06:00 07/15/18 06:00 Intake and Output: 07/15/18 07/15/18 06:59 18:59 Intake Total 950 Output Total 1410 Balance -460 - Medications Medications: Current Medications Albuterol/Ipratropium (Duoneb 3 Mg/0.5 Mg (3 Ml) Ud) 3 ml IH Q4 PRN PRN Reason: Wheezing Amino Acid Protein (Prostat 15 G Packet) 15 gm GT BID [facility] Last Admin: 07/15/18 10:49 Dose: 15 gm Atorvastatin Calcium (Lipitor) 20 mg GT DAILY [facility] Last Admin: 07/15/18 10:49 Dose: 20 mg Clopidogrel Bisulfate (Plavix) 75 mg GT DAILY [facility] Last Admin: 07/15/18 10:50 Dose: 75 mg Enoxaparin Sodium (Lovenox) 30 mg SC DAILY [facility]; Protocol Last Admin: 07/15/18 10:48 Dose: 30 mg Famotidine (Pepcid) 20 mg IVP DAILY [facility] Last Admin: 07/15/18 10:49 Dose: 20 mg Vancomycin HCl (Vancomycin 1gm) 1 gm in 250 mls @ 167 mls/hr IVPB Q12H [facility]; Protocol Last Admin: 07/15/18 10:43 Dose: 167 mls/hr Meropenem (Merrem Iv 1 Gm Premix) 1 gm in 50 mls @ 100 mls/hr IVPB Q8 [facility]; Protocol Stop: 07/21/18 22:01 Last Admin: 07/15/18 05:42 Dose: 100 mls/hr Sodium Chloride (Sodium Chloride 0.9%) 1,000 mls @ 50 mls/hr IV .Q20H [facility] Last Admin: 07/15/18 10:44 Dose: 50 mls/hr Losartan Potassium (Cozaar) 50 mg GT DAILY [facility] Last Admin: 07/15/18 10:49 Dose: 50 mg Memantine (Namenda) 5 mg GT BID [facility] Last Admin: 07/15/18 10:50 Dose: 5 mg Sodium Hypochlorite (Dakins Solution 0.25%) 0 ml TOP DAILY [facility] Last Admin: 07/15/18 10:49 Dose: Not Given Vitamin A (Vitamin A & D Oint Ud Foilpak) 1 ea TOP Q2 PRN PRN Reason: Dry mouth Last Admin: 07/09/18 10:03 Dose: 1 ea Zinc Sulfate (Zinc Sulfate 220 Mg Cap) 220 mg GT DAILY [facility] Last Admin: 07/14/18 09:37 Dose: 220 mg - Labs Labs: 07/15/18 05:00 07/15/18 05:00 PT 15.3 SECONDS (9.4-12.5) H 07/10/18 07:30 INR 1.32 07/10/18 07:30 APTT 37.9 Seconds (25.1-36.5) H 07/10/18 07:30 - Constitutional Appears: No Acute Distress - Head Exam Head Exam: ATRAUMATIC, NORMAL INSPECTION, NORMOCEPHALIC - Eye Exam Eye Exam: EOMI - ENT Exam ENT Exam: Mucous Membranes Moist - Respiratory Exam Respiratory Exam: Clear to Ausculation Bilateral. absent: Rales, Rhonchi, Wheezes - Cardiovascular Exam Cardiovascular Exam: RRR, +S1, +S2 - GI/Abdominal Exam GI & Abdominal Exam: Soft, Normal Bowel Sounds. absent: Firm, Guarding, Rigid, Tenderness, Organomegaly, Rebound Additional comments: G-tube is in place. - Extremities Exam Extremities Exam: Full ROM. absent: Joint Swelling, Pedal Edema - Neurological Exam Neurological Exam: Alert, Awake. absent: Oriented x3 - Psychiatric Exam Psychiatric exam: Normal Affect - Skin Skin Exam: Dry, Normal Color, Warm - Additional Findings Additional findings: Stage 5 sacral decubitus ulcer. Assessment and Plan - Assessment and Plan (Free Text) Assessment: Patient is a 88 y/o female with PMHx Parkinson's Disease, Unspecified Dementia, HTN, HLD, TIA, chronic back pain, and multiple Sacral Decubitus ulcers, admitted for AMS, severe sepsis, found to have UTI, decubiti ulcers. Blood cultures were positive for Peptostrep Asachholyticus, received antibiotics. Repeat blood cultures negative so far. Sacral ulcers in OR polymicrobial. Patient is s/p sacral decub ulcer debridement with wound vac and replacement of PEG tube. She is tolerating her tube feeds. Pending Midline placement for IV antibiotics. Plan: Sepsis with Bacteremia 2/2 Sacral Decubitus Ulcers vs UTI - s/p debridement of Stage 5 Sacral Ulcer: - Stage 5 sacral ulcer debridement w/ wound vac on 07/10 - ID on board. Recs were to c/w Vanco, Merrem, and intermittent Amikacin. Pt will need x2 weeks IV Merrem as oupatient (from date of negative blood cx). - Repeat blood cx 07/12: prelim negative x2 after 3 days - Blood culture 07/08: 12 grew Peptostrep Asaccharolyticus - Left decub buttock and hip cultures grew acinetobacter baumannii and proteus mirabilis. - Left shoulder decub culture grew proteus mirabilis, enterococcus faecalis, corynebacterium - Sacral decub culture grew proteus mirabilis - Echo (07/11) shows EF 71%. Dilated left atrium. Moderate MR. Severe TR. Severe pulmonary HTN with estimated RVSP 77 mmHg. Small pericardial effusion. No clear vegetation. Moderate left pleural effusion with organized thrombus or mass noted in the lung. - Chest CT (07/12) showed right middle lobe infiltrate (seen previously on admission CXR). Moderate bilateral pleural effusions. - urine culture neg - Surgery recs appreciated. Wound vac in place. - Air mattress, frequent turning and positioning to avoid further decub ulcers. - Wound care on board. PEG tube replacement: - patient currently tolerating tube feeds, no residuals - Surgery is monitoring the patient. Recs appreciated. Hx of Dementia: - c/w home Namenda Hx of HLD: - c/w home Lipitor GT Hx of TIA: - c/w home Plavix GT Hx of HTN: - c/w home Cozaar GI Prophylaxis: Pepcid DVT Prophylaxis: Lovenox Code Status: Full Code Palliative care is on board Dispo: As per social science teacher, patient can be accepted to [facility] if family is in agreement. Pending insurance approval. Pending midline placement for x2 weeks IV antibiotics. Case was discussed and reviewed with Attending Physician, Dr. Nieves <Artemio Nieves - Last Filed: 07/15/18 12:17> Objective - Vital Signs/Intake and Output Vital Signs (last 24 hours): Temp Pulse Resp BP Pulse Ox 98.5 F 90 19 137/62 100 07/15/18 06:00 07/15/18 06:00 07/15/18 06:00 07/15/18 06:00 07/15/18 06:00 Intake and Output: 07/15/18 07/15/18 06:59 18:59 Intake Total 950 Output Total 1410 Balance -460 - Medications Medications: Current Medications Albuterol/Ipratropium (Duoneb 3 Mg/0.5 Mg (3 Ml) Ud) 3 ml IH Q4 PRN PRN Reason: Wheezing Amino Acid Protein (Prostat 15 G Packet) 15 gm GT BID [facility] Last Admin: 07/15/18 10:49 Dose: 15 gm Atorvastatin Calcium (Lipitor) 20 mg GT DAILY [facility] Last Admin: 07/15/18 10:49 Dose: 20 mg Clopidogrel Bisulfate (Plavix) 75 mg GT DAILY [facility] Last Admin: 07/15/18 10:50 Dose: 75 mg Enoxaparin Sodium (Lovenox) 30 mg SC DAILY [facility]; Protocol Last Admin: 07/15/18 10:48 Dose: 30 mg Famotidine (Pepcid) 20 mg IVP DAILY [facility] Last Admin: 07/15/18 10:49 Dose: 20 mg Vancomycin HCl (Vancomycin 1gm) 1 gm in 250 mls @ 167 mls/hr IVPB Q12H [facility]; Protocol Last Admin: 07/15/18 10:43 Dose: 167 mls/hr Meropenem (Merrem Iv 1 Gm Premix) 1 gm in 50 mls @ 100 mls/hr IVPB Q8 [facility]; Protocol Stop: 07/21/18 22:01 Last Admin: 07/15/18 05:42 Dose: 100 mls/hr Sodium Chloride (Sodium Chloride 0.9%) 1,000 mls @ 50 mls/hr IV .Q20H [facility] Last Admin: 07/15/18 10:44 Dose: 50 mls/hr Losartan Potassium (Cozaar) 50 mg GT DAILY [facility] Last Admin: 07/15/18 10:49 Dose: 50 mg Memantine (Namenda) 5 mg GT BID [facility] Last Admin: 07/15/18 10:50 Dose: 5 mg Sodium Hypochlorite (Dakins Solution 0.25%) 0 ml TOP DAILY [facility] Last Admin: 07/15/18 10:49 Dose: Not Given Vitamin A (Vitamin A & D Oint Ud Foilpak) 1 ea TOP Q2 PRN PRN Reason: Dry mouth Last Admin: 07/09/18 10:03 Dose: 1 ea Zinc Sulfate (Zinc Sulfate 220 Mg Cap) 220 mg GT DAILY [facility] Last Admin: 07/14/18 09:37 Dose: 220 mg - Labs Labs: 07/15/18 05:00 07/15/18 05:00 PT 15.3 SECONDS (9.4-12.5) H 07/10/18 07:30 INR 1.32 07/10/18 07:30 APTT 37.9 Seconds (25.1-36.5) H 07/10/18 07:30 Attending/Attestation - Attestation I have personally seen and examined this patient.: Yes I have fully participated in the care of the patient.: Yes I have reviewed all pertinent clinical information, including history, physical exam and plan: Yes Notes (Text): 07/15/18 12:15 88 year old female with past medical history of Parkinson's disease, dementia, hypertension, TIA, s/p PEG and multiple sacral decubitus ulcers who presented with sepsis likely secondary to sacral decubitus ulcers and possible UTI. Initial BCx was positive for peptostrep asaccharolyticus. Repeat blood culture is negative to date. UCx was contaminated. Wound culture from left shoulder grew proteus mirabilis, enterococcus faecalis and corynebacterium species. Wound culture from hip and left buttock grew acinobacter baumannii and proteus mirabilis. Leukocyotosis has improved. Continue with iv antibiotics as per ID. Discussed with ID; may need 2 weeks of iv meropenem. Surgery is also following and patient is s/p debridement, wound vac and PEG tube replacement earlier this week. Echocardiogram showed small pericardial effusion, no clear vegetation, moderate left pleural effusion with ?organized thrombus or mass in the lung. This was followed up with CT chest showed showed right middle lobe infiltrate and moderate bilateral pleural effusions. Today she is noted to have mild LEONARDA started on gentle IVF. Also has downtrending anemia. Continue to monitor closely and transfuse as needed. CMx/Sw working on possible d/c planning to [facility]. Overall prognosis is guarded. Artemio Nieves MD Hospitalist.
--- NOTE | 2018-07-15 12:45 | CP.PCM.PN ---
Subjective - Date & Time of Evaluation Date of Evaluation: 07/15/18 Time of Evaluation: 10:55 - Subjective Subjective: Not in distress in bed, no fevers, no diarrhea. Objective - Vital Signs/Intake and Output Vital Signs (last 24 hours): Temp Pulse Resp BP Pulse Ox 97.8 F 94 H 20 157/83 H 99 07/14/18 11:46 07/14/18 11:46 07/14/18 11:46 07/14/18 11:46 07/14/18 06:00 Intake and Output: 07/14/18 07/14/18 06:59 18:59 Intake Total 200 Output Total 1080 Balance -880 - Medications Medications: Current Medications Albuterol/Ipratropium (Duoneb 3 Mg/0.5 Mg (3 Ml) Ud) 3 ml IH Q4 PRN PRN Reason: Wheezing Amino Acid Protein (Prostat 15 G Packet) 15 gm GT BID [facility] Last Admin: 07/13/18 17:45 Dose: 15 gm Atorvastatin Calcium (Lipitor) 20 mg GT DAILY [facility] Last Admin: 07/14/18 09:37 Dose: 20 mg Clopidogrel Bisulfate (Plavix) 75 mg GT DAILY [facility] Last Admin: 07/14/18 09:37 Dose: 75 mg Enoxaparin Sodium (Lovenox) 30 mg SC DAILY [facility]; Protocol Last Admin: 07/14/18 09:37 Dose: 30 mg Famotidine (Pepcid) 20 mg IVP DAILY [facility] Last Admin: 07/14/18 09:38 Dose: 20 mg Meropenem/Sodium Chloride (Merrem Iv 500 Mg/Ns 50 Ml) 500 mg in 50 mls @ 100 mls/hr IVPB Q8 [facility]; Protocol Stop: 07/15/18 06:29 Last Admin: 07/14/18 09:34 Dose: 100 mls/hr Vancomycin HCl (Vancomycin 1gm) 1 gm in 250 mls @ 167 mls/hr IVPB Q12H [facility]; Protocol Last Admin: 07/14/18 07:46 Dose: 167 mls/hr Losartan Potassium (Cozaar) 50 mg GT DAILY [facility] Last Admin: 07/14/18 09:37 Dose: 50 mg Memantine (Namenda) 5 mg GT BID [facility] Last Admin: 07/14/18 09:37 Dose: 5 mg Sodium Hypochlorite (Dakins Solution 0.25%) 0 ml TOP DAILY [facility] Last Admin: 07/13/18 11:25 Dose: 1 applic Vitamin A (Vitamin A & D Oint Ud Foilpak) 1 ea TOP Q2 PRN PRN Reason: Dry mouth Last Admin: 07/09/18 10:03 Dose: 1 ea Zinc Sulfate (Zinc Sulfate 220 Mg Cap) 220 mg GT DAILY [facility] Last Admin: 07/14/18 09:37 Dose: 220 mg - Labs Labs: 07/14/18 09:00 07/14/18 09:00 PT 15.3 SECONDS (9.4-12.5) H 07/10/18 07:30 INR 1.32 07/10/18 07:30 APTT 37.9 Seconds (25.1-36.5) H 07/10/18 07:30 - Constitutional Appears: Chronically Ill - Head Exam Head Exam: NORMAL INSPECTION - Neck Exam Neck Exam: absent: Meningismus - Respiratory Exam Respiratory Exam: Decreased Breath Sounds - Cardiovascular Exam Cardiovascular Exam: +S1, +S2 - GI/Abdominal Exam GI & Abdominal Exam: Soft. absent: Tenderness - Back Exam Additional comments: wound vacuum in place Assessment and Plan - Assessment and Plan (Free Text) Plan: Assessment sepsis due to sacral decubitus ulcer growing drug resistant Acinetobacter and Proteus, as well as UTI with Proteus, S/P debridement and placement of wound vacuum, and Peptostrep bacteremia (probably from decubitus ulcer) R/O recurrent aspiration diarrhea, probably antibiotic associated Parkinson's disease history of TIA HTN dyslipidemia decubitus ulcer dementia history of eyelid surgery Plan continue Vancomycin, Merrem and will give another dose of IV Amikacin today - should get at least 2 weeks of antibiotics from first negative blood cx, and may be as long as 4 weeks follow up further plans of Surgery will continue to monitor clinically 2D echo does not show vegetations overall prognosis is poor
[2018-07-16] MEDS: Meropenem IV 1 gm in NS 1 GM/50 ML BAG IVPB SCH ×3 (05:07→22:10)
[2018-07-16] MEDS: Sodium Chloride 0.9% 1,000 ML IV SCH (05:09)
[2018-07-16 08:50] LABS: BASO # 0.04 K/mm3 (0.0-2.0); BASO % 0.3 % (0.0-3.0); EOS # 0.2 (0.0-0.7); EOS % 1.2 % (1.5-5.0); GRAN # 10.8 (1.4-6.5); GRAN % 76.4 % (50.0-68.0); HEMOGLOBIN 8.7 g/dL (12.0-16.0); LYMPH # 2.6 (1.2-3.4); LYMPH % 18.3 % (22.0-35.0); MEAN CORPUSCULAR HEMOGLOBIN 25.4 pg (25.0-35.0); MEAN CORPUSCULAR HGB CONC 31.3 g/dl (31.0-37.0); MONO # 0.5 (0.1-0.6); MONO % 3.8 % (1.0-6.0); RBC 3.43 10^6/uL (3.5-6.1); RED CELL DISTRIBUTION WIDTH 16.2 % (11.5-14.5); WHITE BLOOD COUNT 14.1 10^3/uL (4.5-11.0)
[2018-07-16 09:01] LABS: ALB/GLOB RATIO 0.6 (1.1-1.8); ALBUMIN 2.2 g/dL (3.0-4.8); CALCIUM 8.1 mg/dL (8.4-10.5)
[2018-07-16] MEDS: Enoxaparin 30 mg Syringe SC SCH (10:00)
--- NOTE | 2018-07-16 10:39 | CP.PCM.PN ---
<Pierce Ortiz - Last Filed: 07/16/18 13:58> Subjective - Date & Time of Evaluation Date of Evaluation: 07/16/18 Time of Evaluation: 09:20 - Subjective Subjective: Infectious disease progress note: Pt seen and examined at bedside. No acute events overnight. Denies any complaints or pain at this time. 12 Point ROS performed and neg other than stated above. Objective - Vital Signs/Intake and Output Vital Signs (last 24 hours): Temp Pulse Resp BP Pulse Ox 97.9 F 93 H 18 134/62 100 07/16/18 05:47 07/16/18 05:47 07/16/18 05:47 07/16/18 05:47 07/16/18 05:47 Intake and Output: 07/16/18 07/16/18 06:59 18:59 Intake Total 800 Output Total 1000 Balance -200 - Medications Medications: Current Medications Albuterol/Ipratropium (Duoneb 3 Mg/0.5 Mg (3 Ml) Ud) 3 ml IH Q4 PRN PRN Reason: Wheezing Amino Acid Protein (Prostat 15 G Packet) 15 gm GT BID [facility] Last Admin: 07/15/18 18:46 Dose: 15 gm Atorvastatin Calcium (Lipitor) 20 mg GT DAILY [facility] Last Admin: 07/15/18 10:49 Dose: 20 mg Clopidogrel Bisulfate (Plavix) 75 mg GT DAILY [facility] Last Admin: 07/15/18 10:50 Dose: 75 mg Enoxaparin Sodium (Lovenox) 30 mg SC DAILY [facility]; Protocol Last Admin: 07/15/18 10:48 Dose: 30 mg Famotidine (Pepcid) 20 mg IVP DAILY [facility] Last Admin: 07/15/18 10:49 Dose: 20 mg Vancomycin HCl (Vancomycin 1gm) 1 gm in 250 mls @ 167 mls/hr IVPB Q12H [facility]; Protocol Last Admin: 07/15/18 20:24 Dose: 167 mls/hr Meropenem (Merrem Iv 1 Gm Premix) 1 gm in 50 mls @ 100 mls/hr IVPB Q8 [facility]; Protocol Stop: 07/21/18 22:01 Last Admin: 07/16/18 05:07 Dose: 100 mls/hr Sodium Chloride (Sodium Chloride 0.9%) 1,000 mls @ 50 mls/hr IV .Q20H [facility] Last Admin: 07/16/18 05:09 Dose: 50 mls/hr Losartan Potassium (Cozaar) [address] [facility] Last Admin: 07/15/18 10:49 Dose: 50 mg Memantine (Namenda) [address] [facility] Last Admin: 07/15/18 18:46 Dose: 5 mg Sodium Hypochlorite (Dakins Solution 0.25%) [address] [facility] Last Admin: 07/15/18 10:49 Dose: Not Given Vitamin A (Vitamin A & D Oint Ud Foilpak) 1 ea TOP Q2 PRN PRN Reason: Dry mouth Last Admin: 07/09/18 10:03 Dose: 1 ea Zinc Sulfate (Zinc Sulfate 220 Mg Cap) [address] [facility] Last Admin: 07/15/18 13:15 Dose: 220 mg - Labs Labs: 07/16/18 08:30 07/16/18 08:30 PT 15.3 SECONDS (9.4-12.5) H 07/10/18 07:30 INR 1.32 07/10/18 07:30 APTT 37.9 Seconds (25.1-36.5) H 07/10/18 07:30 - Constitutional Appears: No Acute Distress - Head Exam Head Exam: ATRAUMATIC, NORMOCEPHALIC - Eye Exam Eye Exam: EOMI - ENT Exam ENT Exam: Mucous Membranes Moist - Respiratory Exam Respiratory Exam: Clear to Ausculation Bilateral (no r/r/w) - Cardiovascular Exam Cardiovascular Exam: RRR, +S1, +S2 - GI/Abdominal Exam GI & Abdominal Exam: Soft - Extremities Exam Extremities Exam: absent: Calf Tenderness, Pedal Edema - Neurological Exam Neurological Exam: Alert, Awake, CN II-XII Intact - Psychiatric Exam Psychiatric exam: Normal Mood - Skin Skin Exam: Dry, Intact, Normal Color Assessment and Plan - Assessment and Plan (Free Text) Assessment: 88 year old female with a PMHx significant for Parkinson's Disease, dementia, HTN, HLD, TIA, chronic back pain, and multiple sacral decubiti who presented with change in mental status and sepsis (tachycardic and hypotensive) 2/2 possib ly UTI unlikely from sacral decubiti. Sacral decubitus ulcer growing drug resistant Acinetobacter and Proteus, as well as UTI with Proteus, S/P debridement and placement of wound vacuum, and Peptostrep bacteremia (probably from decubitus ulcer). - Wound cx of sacrum/hip possible contaminates - Blood cx- Peptostrep possibly from sacarl decub - Cont abx with Vanc and Karen and a dose of IV Amikacin yesterday - should get at least 2 weeks of antibiotics from first negative blood cx, and may be as long as 4 weeks. - Upon d/c cont Karen as an outpatient for 4 weeks. - Follow up OR findings and cultures. Case and plan was reviewed and discussed with Dr Francisco. <Miles Francisco - Last Filed: 07/16/18 14:07> Objective - Vital Signs/Intake and Output Vital Signs (last 24 hours): Temp Pulse Resp BP Pulse Ox 97.9 F 89 18 151/83 H 100 07/16/18 12:00 07/16/18 12:00 07/16/18 12:00 07/16/18 12:00 07/16/18 05:47 Intake and Output: 07/16/18 07/16/18 06:59 18:59 Intake Total 800 Output Total 1000 Balance -200 - Medications Medications: Current Medications Albuterol/Ipratropium (Duoneb 3 Mg/0.5 Mg (3 Ml) Ud) 3 ml IH Q4 PRN PRN Reason: Wheezing Amino Acid Protein (Prostat 15 G Packet) [address] [facility] Last Admin: 07/16/18 10:44 Dose: 15 gm Atorvastatin Calcium (Lipitor) [address] [facility] Last Admin: 07/16/18 10:43 Dose: 20 mg Clopidogrel Bisulfate (Plavix) [address] [facility] Last Admin: 07/16/18 10:44 Dose: 75 mg Enoxaparin Sodium (Lovenox) 30 mg SC DAILY [facility]; Protocol Last Admin: 07/15/18 10:48 Dose: 30 mg Famotidine (Pepcid) [address] [facility] Vancomycin HCl (Vancomycin 1gm) 1 gm in 250 mls @ 167 mls/hr IVPB Q12H [facility]; Protocol Last Admin: 07/16/18 10:44 Dose: 167 mls/hr Meropenem (Merrem Iv 1 Gm Premix) 1 gm in 50 mls @ 100 mls/hr IVPB Q8 [facility]; Protocol Stop: 07/21/18 22:01 Last Admin: 07/16/18 05:07 Dose: 100 mls/hr Sodium Chloride (Sodium Chloride 0.9%) 1,000 mls @ 50 mls/hr IV .Q20H [facility] Last Admin: 07/16/18 05:09 Dose: 50 mls/hr Losartan Potassium (Cozaar) [address] [facility] Last Admin: 07/16/18 10:46 Dose: 50 mg Memantine (Namenda) [address] [facility] Last Admin: 07/16/18 10:43 Dose: 5 mg Sodium Hypochlorite (Dakins Solution 0.25%) [address] [facility] Last Admin: 07/16/18 10:43 Dose: Not Given Vitamin A (Vitamin A & D Oint Ud Foilpak) 1 ea TOP Q2 PRN PRN Reason: Dry mouth Last Admin: 07/09/18 10:03 Dose: 1 ea Zinc Sulfate (Zinc Sulfate 220 Mg Cap) [address] [facility] Last Admin: 07/16/18 10:46 Dose: 220 mg - Labs Labs: 07/16/18 08:30 07/16/18 08:30 PT 15.3 SECONDS (9.4-12.5) H 07/10/18 07:30 INR 1.32 07/10/18 07:30 APTT 37.9 Seconds (25.1-36.5) H 07/10/18 07:30 Assessment and Plan - Assessment and Plan (Free Text) Assessment: Infectious diseases Attending Physician Attestation Patient seen and examined, discussed with medical receptionist medical assistant. I have reviewed the patient's history of present illness, past medical, social, personal and family histories, pertinent physical exam findings, course so far in this hospital admission, pertinent laboratory and imaging results. I agree with the above findings, assessment and plan. In addition, continue Merrem for patient with Proteus growing from infected unstageable sacral decubitus ulcer, S/P debridement as well as Peptostrep bacteremia, probably related to sacral ulcer. 2D echo does not show vegetations. Repeat blood cx are negative. Would recommend 4 weeks of antibiotics. Acinetobacter found in wound cx did not grow in all s pecimens and it is multidrug resistant - may be a colonizer since it did not grow in all specimens. Overall prognosis is poor. Follow up further surgical plans.
[2018-07-16] MEDS: Dakin's Topical 0.25%-Half Strength (480 ml) TOP SCH (10:43)
[2018-07-16] MEDS: Prostat 15 g packet GT SCH ×2 (10:44→17:54)
[2018-07-16] MEDS: Vancomycin 1gm in NS 250ml 1 GM/250 ML BAG IVPB SCH ×2 (10:44→20:04)
--- NOTE | 2018-07-16 14:37 | CP.PCM.PN ---
Subjective - Date & Time of Evaluation Date of Evaluation: 07/16/18 Time of Evaluation: 14:34 - Subjective Subjective: Surgery Wound vac changed w surgical team. No acute events. Objective - Vital Signs/Intake and Output Vital Signs (last 24 hours): Temp Pulse Resp BP Pulse Ox 97.9 F 89 18 151/83 H 100 07/16/18 12:00 07/16/18 12:00 07/16/18 12:00 07/16/18 12:00 07/16/18 05:47 Intake and Output: 07/16/18 07/16/18 06:59 18:59 Intake Total 800 Output Total 1000 Balance -200 - Medications Medications: Current Medications Albuterol/Ipratropium (Duoneb 3 Mg/0.5 Mg (3 Ml) Ud) 3 ml IH Q4 PRN PRN Reason: Wheezing Amino Acid Protein (Prostat 15 G Packet) 15 gm GT BID [facility] Last Admin: 07/16/18 10:44 Dose: 15 gm Atorvastatin Calcium (Lipitor) 20 mg GT DAILY [facility] Last Admin: 07/16/18 10:43 Dose: 20 mg Clopidogrel Bisulfate (Plavix) 75 mg GT DAILY [facility] Last Admin: 07/16/18 10:44 Dose: 75 mg Enoxaparin Sodium (Lovenox) 30 mg SC DAILY [facility]; Protocol Last Admin: 07/15/18 10:48 Dose: 30 mg Famotidine (Pepcid) 20 mg GT DAILY [facility] Vancomycin HCl (Vancomycin 1gm) 1 gm in 250 mls @ 167 mls/hr IVPB Q12H [facility]; Protocol Last Admin: 07/16/18 10:44 Dose: 167 mls/hr Meropenem (Merrem Iv 1 Gm Premix) 1 gm in 50 mls @ 100 mls/hr IVPB Q8 [facility]; Protocol Stop: 07/21/18 22:01 Last Admin: 07/16/18 05:07 Dose: 100 mls/hr Sodium Chloride (Sodium Chloride 0.9%) 1,000 mls @ 50 mls/hr IV .Q20H [facility] Last Admin: 07/16/18 05:09 Dose: 50 mls/hr Losartan Potassium (Cozaar) 50 mg GT DAILY [facility] Last Admin: 07/16/18 10:46 Dose: 50 mg Memantine (Namenda) 5 mg GT BID [facility] Last Admin: 07/16/18 10:43 Dose: 5 mg Sodium Hypochlorite (Dakins Solution 0.25%) 0 ml TOP DAILY [facility] Last Admin: 07/16/18 10:43 Dose: Not Given Vitamin A (Vitamin A & D Oint Ud Foilpak) 1 ea TOP Q2 PRN PRN Reason: Dry mouth Last Admin: 07/09/18 10:03 Dose: 1 ea Zinc Sulfate (Zinc Sulfate 220 Mg Cap) 220 mg GT DAILY [facility] Last Admin: 07/16/18 10:46 Dose: 220 mg - Labs Labs: 07/16/18 08:30 07/16/18 08:30 PT 15.3 SECONDS (9.4-12.5) H 07/10/18 07:30 INR 1.32 07/10/18 07:30 APTT 37.9 Seconds (25.1-36.5) H 07/10/18 07:30 - Constitutional Appears: No Acute Distress - Head Exam Head Exam: ATRAUMATIC, NORMAL INSPECTION, NORMOCEPHALIC - Eye Exam Eye Exam: EOMI, Normal appearance, PERRL Pupil Exam: NORMAL ACCOMODATION, PERRL - ENT Exam ENT Exam: Mucous Membranes Moist - Neck Exam Neck Exam: Normal Inspection - Respiratory Exam Respiratory Exam: NORMAL BREATHING PATTERN - Cardiovascular Exam Cardiovascular Exam: REGULAR RHYTHM - GI/Abdominal Exam GI & Abdominal Exam: Soft. absent: Tenderness (g tube in place ) - Extremities Exam Extremities Exam: absent: Full ROM - Back Exam Additional comments: wound vac in place. - Neurological Exam Neurological Exam: Alert, Awake - Psychiatric Exam Psychiatric exam: Normal Mood - Skin Skin Exam: Warm. absent: Intact Assessment and Plan - Assessment and Plan (Free Text) Assessment: Sacral ulcers -continue home wound vac for 3 month set up for home wound vac VNS for wound vac change q3 or q4 days. No further surgical intervention at this time. JAMES perez
--- NOTE | 2018-07-16 15:54 | CARD ---
APPROVED REPORT Date of service: 07/16/2018 EXAM: Two-dimensional and M-mode echocardiogram with Doppler and color Doppler. INDICATION Infection:Rule out subacute bacterial endocarditis 2D DIMENSIONS Left Atrium (2D)2.4 (1.6-4.0cm)IVSd1.2 (0.7-1.1cm) LVDd3.3 (3.9-5.9cm)PWd1.2 (0.7-1.1cm) LVDs2.2 (2.5-4.0cm)FS (%) 33.2 % LVEF (%)63.0 (>50%) M-Mode DIMENSIONS Aortic Root2.30 (2.2-3.7cm)Aortic Cusp Exc.0.70 (1.5-2.0cm) Aortic Valve AoV Peak [id number]/Alana Peak GR.12mmHg Mitral Valve MV E Rkqsfwbh32.6cm/sMV A Oporcbty07.5cm/sE/A ratio0.8 TDI E/Lateral E'0.0E/Medial E'0.0 Tricuspid Valve TR Peak [id number]/sRAP [id number] Peak Gr.43mmHg [id number] LEFT VENTRICLE The left ventricle is normal size. There is borderline concentric left ventricular hypertrophy. The left ventricular function is normal. The left ventricular ejection fraction is within the normal range. There is normal LV segmental wall motion. Transmitral Doppler flow pattern is Grade I-abnormal relaxation pattern. RIGHT VENTRICLE The right ventricle is normal size. There is normal right ventricular wall thickness. The right ventricular systolic function is normal. ATRIA The left atrium size is normal. The right atrium size is normal. AORTIC VALVE The aortic valve is severely thickened. There is mild aortic regurgitation. There is no aortic valvular stenosis. Cannot exclude aortic valvular vegetation. MITRAL VALVE The mitral valve is moderately thickened. Mitral regurgitation is mild. TRICUSPID VALVE There is moderate tricuspid regurgitation. There is moderate pulmonary hypertension. PULMONIC VALVE There is mild pulmonic valvular regurgitation. GREAT VESSELS The aortic root is normal in size. PERICARDIAL EFFUSION There is small pleural effusion. <Conclusion> There is borderline concentric left ventricular hypertrophy. The left ventricular function is normal. The left ventricular ejection fraction is within the normal range. There is normal LV segmental wall motion. Transmitral Doppler flow pattern is Grade I-abnormal relaxation pattern. There is mild aortic regurgitation. Mitral regurgitation is mild. There is moderate tricuspid regurgitation. There is moderate pulmonary hypertension. Cannot exclude aortic valvular vegetation.
--- NOTE | 2018-07-16 16:10 | CP.PCM.PN ---
<Unruly Artis - Last Filed: 07/16/18 16:07> Subjective - Date & Time of Evaluation Date of Evaluation: 07/16/18 Time of Evaluation: 08:00 - Subjective Subjective: Unruly Artis, PGY1 Medicine Progress Note for Dr. Cavanaugh Patient was seen and examined at bedside this morning. Mental status unchanged, AAOx1. She is alert and awake. No adverse overnight events. Wound vac is in place. She is tolerating tube feeds. Objective - Vital Signs/Intake and Output Vital Signs (last 24 hours): Temp Pulse Resp BP Pulse Ox 97.9 F 89 18 151/83 H 100 07/16/18 12:00 07/16/18 12:00 07/16/18 12:00 07/16/18 12:00 07/16/18 05:47 Intake and Output: 07/16/18 07/16/18 06:59 18:59 Intake Total 800 Output Total 1000 Balance -200 - Medications Medications: Current Medications Albuterol/Ipratropium (Duoneb 3 Mg/0.5 Mg (3 Ml) Ud) 3 ml IH Q4 PRN PRN Reason: Wheezing Amino Acid Protein (Prostat 15 G Packet) 15 gm GT BID [facility] Last Admin: 07/16/18 10:44 Dose: 15 gm Atorvastatin Calcium (Lipitor) 20 mg GT DAILY [facility] Last Admin: 07/16/18 10:43 Dose: 20 mg Clopidogrel Bisulfate (Plavix) 75 mg GT DAILY [facility] Last Admin: 07/16/18 10:44 Dose: 75 mg Enoxaparin Sodium (Lovenox) 30 mg SC DAILY [facility]; Protocol Last Admin: 07/16/18 10:00 Dose: 30 mg Famotidine (Pepcid) 20 mg GT DAILY [facility] Vancomycin HCl (Vancomycin 1gm) 1 gm in 250 mls @ 167 mls/hr IVPB Q12H [facility]; Protocol Last Admin: 07/16/18 10:44 Dose: 167 mls/hr Meropenem (Merrem Iv 1 Gm Premix) 1 gm in 50 mls @ 100 mls/hr IVPB Q8 [facility]; Protocol Stop: 07/21/18 22:01 Last Admin: 07/16/18 15:32 Dose: 100 mls/hr Sodium Chloride (Sodium Chloride 0.9%) 1,000 mls @ 50 mls/hr IV .Q20H [facility] Last Admin: 07/16/18 05:09 Dose: 50 mls/hr Losartan Potassium (Cozaar) 50 mg GT DAILY [facility] Last Admin: 07/16/18 10:46 Dose: 50 mg Memantine (Namenda) 5 mg GT BID [facility] Last Admin: 07/16/18 10:43 Dose: 5 mg Sodium Hypochlorite (Dakins Solution 0.25%) 0 ml TOP DAILY [facility] Last Admin: 07/16/18 10:43 Dose: Not Given Vitamin A (Vitamin A & D Oint Ud Foilpak) 1 ea TOP Q2 PRN PRN Reason: Dry mouth Last Admin: 07/09/18 10:03 Dose: 1 ea Zinc Sulfate (Zinc Sulfate 220 Mg Cap) 220 mg GT DAILY [facility] Last Admin: 07/16/18 10:46 Dose: 220 mg - Labs Labs: 07/16/18 08:30 07/16/18 08:30 PT 15.3 SECONDS (9.4-12.5) H 07/10/18 07:30 INR 1.32 07/10/18 07:30 APTT 37.9 Seconds (25.1-36.5) H 07/10/18 07:30 - Constitutional Appears: No Acute Distress - Head Exam Head Exam: ATRAUMATIC, NORMAL INSPECTION, NORMOCEPHALIC - Eye Exam Eye Exam: EOMI - ENT Exam ENT Exam: Mucous Membranes Moist - Respiratory Exam Respiratory Exam: Clear to Ausculation Bilateral. absent: Rales, Rhonchi, Wheezes - Cardiovascular Exam Cardiovascular Exam: RRR, +S1, +S2 - GI/Abdominal Exam GI & Abdominal Exam: Soft, Normal Bowel Sounds. absent: Firm, Guarding, Rigid, Hernia, Rebound Additional comments: G-tube in place. - Extremities Exam Extremities Exam: Full ROM, Normal Capillary Refill. absent: Joint Swelling, Pedal Edema - Neurological Exam Neurological Exam: Alert, Awake. absent: Oriented x3 - Skin Additional comments: Stage 4 sacral decubitus ulcer. Assessment and Plan - Assessment and Plan (Free Text) Assessment: Patient is a 88 y/o female with PMHx Parkinson's Disease, Unspecified Dementia, HTN, HLD, TIA, chronic back pain, and multiple Sacral Decubitus ulcers, admitted for AMS, severe sepsis, found to have UTI, decubiti ulcers. Blood cultures were positive for Peptostrep Asachholyticus, received antibiotics. Repeat blood cultures negative so far. Sacral ulcers in OR polymicrobial. Patient is s/p sacral decub ulcer debridement with wound vac and replacement of PEG tube. She is tolerating her tube feeds. Pending Midline placement for IV antibiotics. Plan: Sepsis with Bacteremia 2/2 Sacral Decubitus Ulcers vs UTI - s/p debridement of Stage 4 Sacral Ulcer: - As per ID recs, patient will receive IV antibiotics for a total of 4 weeks (from date of negative blood cx) - Midline placement today - Stage 4 sacral ulcer debridement w/ wound vac on 07/10 - ID on board. Recs were to c/w Vanco, Merrem, and intermittent Amikacin. - Repeat blood cx 07/12: prelim negative x2 after 3 days - Blood culture 07/08: 1/2 grew Peptostrep Asaccharolyticus - Left decub buttock and hip cultures grew acinetobacter baumannii and proteus mirabilis. - Left shoulder decub culture grew proteus mirabilis, enterococcus faecalis, corynebacterium - Sacral decub culture grew proteus mirabilis - Echo (07/11) shows EF 71%. Dilated left atrium. Moderate MR. Severe TR. Severe pulmonary HTN with estimated RVSP 77 mmHg. Small pericardial effusion. No clear vegetation. Moderate left pleural effusion with organized thrombus or mass noted in the lung. - Chest CT (07/12) showed right middle lobe infiltrate (seen previously on admission CXR). Moderate bilateral pleural effusions. - urine culture neg - Surgery recs appreciated. Wound vac in place. - Air mattress, frequent turning and positioning to avoid further decub ulcers. - Wound care on board. PEG tube replacement: - patient currently tolerating tube feeds, no residuals - Surgery is monitoring the patient. Recs appreciated. Mild LEONARDA - improving - c/w gentle hydration, IV NS at 50 cc/hr - Creatinine improving Anemia - Hgb went up today to 8.7 from 7.6 - No signs of overt bleeding - No indications for transfusion at this time Hx of Dementia: - c/w home Namenda Hx of HLD: - c/w home Lipitor GT Hx of TIA: - c/w home Plavix GT Hx of HTN: - c/w home Cozaar GI Prophylaxis: Pepcid DVT Prophylaxis: Lovenox Code Status: Full Code Palliative care is on board Dispo: As per social media content manager, patient accepted to [facility]. She will be going there tomorrow. Plan for mid-line placement today. Upon discharge, she wi ll receive a total of x4 weeks IV antibiotics with merrem as per ID recommendations. Case was discussed and reviewed with Attending Physician, Dr. Cavanaugh <Yenny Cavanaugh - Last Filed: 07/18/18 14:00> Objective - Vital Signs/Intake and Output Vital Signs (last 24 hours): Temp Pulse Resp BP Pulse Ox 97.5 F L 94 H 20 164/82 H 99 07/17/18 16:44 07/17/18 17:00 07/17/18 16:44 07/17/18 17:00 07/17/18 16:44 - Labs Labs: 07/17/18 06:20 07/17/18 06:20 PT 15.3 SECONDS (9.4-12.5) H 07/10/18 07:30 INR 1.32 07/10/18 07:30 APTT 37.9 Seconds (25.1-36.5) H 07/10/18 07:30 Attending/Attestation - Attestation I have personally seen and examined this patient.: Yes I have fully participated in the care of the patient.: Yes I have reviewed all pertinent clinical information, including history, physical exam and plan: Yes Notes (Text): 07/18/18 14:00 Medical record note made by the resident after discussion with my direction and input after the patient was personally seen and examined by me. I have reviewed the chart and agree that the record accurately reflects by personal performance of the history, physical exam, data review, and medical decision-making, in the course for the patient. I have also personally directed the plan of care.
[2018-07-17] MEDS: Sodium Chloride 0.9% 1,000 ML IV SCH (04:11)
[2018-07-17] MEDS: Meropenem IV 1 gm in NS 1 GM/50 ML BAG IVPB SCH ×2 (06:36→14:42)
[2018-07-17] MEDS: Vancomycin 1gm in NS 250ml 1 GM/250 ML BAG IVPB SCH (06:37)
[2018-07-17 06:57] VITALS: RESP 20
[2018-07-17 07:06] LABS: BASO # 0.02 K/mm3 (0.0-2.0); BASO % 0.2 % (0.0-3.0); EOS # 0.2 (0.0-0.7); EOS % 1.5 % (1.5-5.0); GRAN # 9.87 (1.4-6.5); GRAN % 75.4 % (50.0-68.0); HEMOGLOBIN 8.3 g/dL (12.0-16.0); LYMPH # 2.5 (1.2-3.4); LYMPH % 18.9 % (22.0-35.0); MEAN CELL VOLUME 81.9 fl (80.0-105.0); MEAN CORPUSCULAR HEMOGLOBIN 25.9 pg (25.0-35.0); MEAN CORPUSCULAR HGB CONC 31.6 g/dl (31.0-37.0); MEAN PLATELET VOLUME 8.4 fl (7.0-11.0); MONO # 0.5 (0.1-0.6); RBC 3.21 10^6/uL (3.5-6.1); RED CELL DISTRIBUTION WIDTH 16.4 % (11.5-14.5); WHITE BLOOD COUNT 13.1 10^3/uL (4.5-11.0)
[2018-07-17 07:21] LABS: ALB/GLOB RATIO 0.6 (1.1-1.8); ALBUMIN 2.2 g/dL (3.0-4.8); CALCIUM 8.2 mg/dL (8.4-10.5)
--- NOTE | 2018-07-17 08:30 | CP.PCM.PN ---
<Pierce Ortiz - Last Filed: 07/17/18 12:35> Subjective - Date & Time of Evaluation Date of Evaluation: 07/17/18 Time of Evaluation: 07:30 - Subjective Subjective: Infectious disease progress note: Pt seen and examined at bedside. No acute events overnight. Patient appears more lethargic today however denies any pain or complaints. 12 Point ROS performed and neg other than stated above. Objective - Vital Signs/Intake and Output Vital Signs (last 24 hours): Temp Pulse Resp BP Pulse Ox 97.3 F L 94 H 20 164/90 H 98 07/17/18 06:00 07/17/18 06:00 07/17/18 06:00 07/17/18 06:00 07/17/18 06:00 Intake and Output: 07/17/18 07/17/18 06:59 18:59 Intake Total 3240 Output Total 1240 900 Balance 1999 -900 - Medications Medications: Current Medications Albuterol/Ipratropium (Duoneb 3 Mg/0.5 Mg (3 Ml) Ud) 3 ml IH Q4 PRN PRN Reason: Wheezing Amino Acid Protein (Prostat 15 G Packet) 15 gm GT BID [facility] Last Admin: 07/16/18 17:54 Dose: 15 gm Atorvastatin Calcium (Lipitor) 20 mg GT DAILY [facility] Last Admin: 07/16/18 10:43 Dose: 20 mg Clopidogrel Bisulfate (Plavix) 75 mg GT DAILY [facility] Last Admin: 07/16/18 10:44 Dose: 75 mg Enoxaparin Sodium (Lovenox) 30 mg SC DAILY [facility]; Protocol Last Admin: 07/16/18 10:00 Dose: 30 mg Famotidine (Pepcid) 20 mg GT DAILY [facility] Meropenem (Merrem Iv 1 Gm Premix) 1 gm in 50 mls @ 100 mls/hr IVPB Q8 [facility]; Protocol Stop: 07/21/18 22:01 Last Admin: 07/17/18 06:36 Dose: 100 mls/hr Losartan Potassium (Cozaar) 50 mg GT DAILY [facility] Last Admin: 07/16/18 10:46 Dose: 50 mg Memantine (Namenda) 5 mg GT BID [facility] Last Admin: 07/16/18 17:53 Dose: 5 mg Sodium Hypochlorite (Dakins Solution 0.25%) 0 ml TOP DAILY [facility] Last Admin: 07/16/18 10:43 Dose: Not Given Vitamin A (Vitamin A & D Oint Ud Foilpak) 1 ea TOP Q2 PRN PRN Reason: Dry mouth Last Admin: 07/09/18 10:03 Dose: 1 ea Zinc Sulfate (Zinc Sulfate 220 Mg Cap) 220 mg GT DAILY [facility] Last Admin: 07/16/18 10:46 Dose: 220 mg - Labs Labs: 07/17/18 06:20 07/17/18 06:20 PT 15.3 SECONDS (9.4-12.5) H 07/10/18 07:30 INR 1.32 07/10/18 07:30 APTT 37.9 Seconds (25.1-36.5) H 07/10/18 07:30 - Constitutional Appears: No Acute Distress - Head Exam Head Exam: ATRAUMATIC, NORMOCEPHALIC - Eye Exam Eye Exam: EOMI - ENT Exam ENT Exam: Mucous Membranes Moist - Respiratory Exam Respiratory Exam: Clear to Ausculation Bilateral (no r/r/w) - Cardiovascular Exam Cardiovascular Exam: RRR, +S1, +S2 - GI/Abdominal Exam GI & Abdominal Exam: Soft, Normal Bowel Sounds - Extremities Exam Extremities Exam: absent: Calf Tenderness, Pedal Edema - Neurological Exam Neurological Exam: Awake - Psychiatric Exam Psychiatric exam: Normal Mood - Skin Skin Exam: Dry, Warm Additional comments: wound vac for sacral decub Assessment and Plan - Assessment and Plan (Free Text) Assessment: 88 year old female with a PMHx significant for Parkinson's Disease, dementia, HTN, HLD, TIA, chronic back pain, and multiple sacral decubiti who presented with change in mental status and sepsis (tachycardic and hypotensive) 2/2 poss ibly UTI unlikely from sacral decubiti. Sacral decubitus ulcer growing drug resistant Acinetobacter and Proteus, as well as UTI with Proteus, S/P debridement and placement of wound vacuum, and Peptostrep bacteremia (probably from decubitus ulcer). - Wound cx of sacrum/hip possible contaminates - Blood cx- Peptostrep possibly from sacarl decub - D/shana Vanc and continue Karen - s/p IV Amikacin x 2 - At least 2 weeks of antibiotics with Karen from first negative blood cx, and may be as long as 4 weeks. - Upon d/c cont Karen as an outpatient for 4 weeks. Case and plan was reviewed and discussed with Dr Francisco. <Miles Francisco - Last Filed: 07/17/18 14:40> Objective - Vital Signs/Intake and Output Vital Signs (last 24 hours): Temp Pulse Resp BP Pulse Ox 97.5 F L 95 H 20 163/97 H 98 07/17/18 12:00 07/17/18 12:00 07/17/18 12:00 07/17/18 12:00 07/17/18 06:00 Intake and Output: 07/17/18 07/17/18 06:59 18:59 Intake Total 3240 Output Total 1240 900 Balance 1999 - - Medications Medications: Current Medications Albuterol/Ipratropium (Duoneb 3 Mg/0.5 Mg (3 Ml) Ud) 3 ml IH Q4 PRN PRN Reason: Wheezing Amino Acid Protein (Prostat 15 G Packet) 15 gm GT BID [facility] Last Admin: 07/16/18 17:54 Dose: 15 gm Amlodipine Besylate (Norvasc) 5 mg GT DAILY [facility] Atorvastatin Calcium (Lipitor) 20 mg GT DAILY [facility] Last Admin: 07/17/18 10:04 Dose: 20 mg Clopidogrel Bisulfate (Plavix) 75 mg GT DAILY [facility] Last Admin: 07/17/18 10:04 Dose: 75 mg Enoxaparin Sodium (Lovenox) 30 mg SC DAILY [facility]; Protocol Last Admin: 07/17/18 10:04 Dose: 30 mg Famotidine (Pepcid) 20 mg GT DAILY [facility] Last Admin: 07/17/18 10:04 Dose: 20 mg Meropenem (Merrem Iv 1 Gm Premix) 1 gm in 50 mls @ 100 mls/hr IVPB Q8 [facility]; Protocol Stop: 07/21/18 22:01 Last Admin: 07/17/18 06:36 Dose: 100 mls/hr Losartan Potassium (Cozaar) 50 mg GT DAILY [facility] Last Admin: 07/17/18 10:08 Dose: 50 mg Memantine (Namenda) 5 mg GT BID [facility] Last Admin: 07/17/18 10:04 Dose: 5 mg Sodium Hypochlorite (Dakins Solution 0.25%) 0 ml TOP DAILY [facility] Last Admin: 07/17/18 10:02 Dose: 1 applic Vitamin A (Vitamin A & D Oint Ud Foilpak) 1 ea TOP Q2 PRN PRN Reason: Dry mouth Last Admin: 07/09/18 10:03 Dose: 1 ea Zinc Sulfate (Zinc Sulfate 220 Mg Cap) 220 mg GT DAILY [facility] Last Admin: 07/17/18 10:04 Dose: 220 mg - Labs Labs: 07/17/18 06:20 07/17/18 06:20 PT 15.3 SECONDS (9.4-12.5) H 07/10/18 07:30 INR 1.32 07/10/18 07:30 APTT 37.9 Seconds (25.1-36.5) H 07/10/18 07:30 Assessment and Plan - Assessment and Plan (Free Text) Assessment: Infectious diseases Attending Physician Attestation Patient seen and examined, discussed with vp medical. I have reviewed the patient's history of present illness, past medical, social, personal and family histories, pertinent physical exam findings, course so far in this hospital admission, pertinent laboratory and imaging results. I agree with the above findings, assessment and plan. In addition, continue Merrem for Peptostrep bacteremia and infected sacral ulcer with Proteus. Recommend up to 4 weeks of antibiotics. Follow up further plans of Surgery for the sacral ulcer. Overall prognosis is poor.
[2018-07-17] MEDS: Dakin's Topical 0.25%-Half Strength (480 ml) TOP SCH (10:02)
[2018-07-17] MEDS: Enoxaparin 30 mg Syringe SC SCH (10:04)
[2018-07-17] MEDS: Prostat 15 g packet GT SCH (10:45)
[2018-07-17 12:27] VITALS: TEMP 97.5
--- NOTE | 2018-07-17 15:42 | CP.PCM.DIS ---
<Pal,Unruly - Last Filed: 07/17/18 21:00> Provider - Provider Date of Admission: 07/08/18 19:41 Attending physician: Yenny Cavanaugh MD Primary care physician: Cat Guerra MD Consults: 07/08/18 21:19 Nursing Referral for Wound Care Routine Comment: Physician Instructions: Reason For Exam: Multiple stage 4 SDU Physician Consult Routine Comment: Consulting Provider: Venkat Salinas Consulting Physician: Venkat Salinas Reason for Consult: Leukocytosis; UTI; Multiple Stage 4 SDU 07/09/18 00:07 Physician Consult Routine Comment: Consulting Provider: Jason Norman Consulting Physician: Jason Norman Reason for Consult: ?Need for SDU debridement 07/09/18 09:45 Consult [Physician Consult] Routine Comment: Consulting Provider: Tammy Su Consulting Physician: Tammy Su Reason for Consult: full code, bed bound 07/11/18 03:56 Nursing Referral for Wound Care Routine Comment: Physician Instructions: Reason For Exam: shift assessment 07/13/18 10:47 Case Management Referral Routine Comment: Physician Instructions: Reason For Exam: For home wound vac for sacral ulcer Reason for Referral: [facility] Eval Time Spent in preparation of Discharge (in minutes): 35 Hospital Course - Lab Results Lab Results: Micro Results 07/12/18 00:30 Blood-Venous Blood Culture - Final NO GROWTH AFTER 5 DAYS 07/12/18 00:30 Blood-Venous Gram Stain - Final TEST NOT PERFORMED 07/12/18 00:45 Blood-Venous Blood Culture - Final NO GROWTH AFTER 5 DAYS 07/12/18 00:45 Blood-Venous Gram Stain - Final TEST NOT PERFORMED 07/08/18 16:49 Blood Blood Culture - Final NO GROWTH AFTER 5 DAYS 07/08/18 16:49 Blood Gram Stain - Final TEST NOT PERFORMED 07/08/18 16:49 Blood S.aureus & Coag-Neg Staph PNA FISH - Final TEST NOT PERFORMED 07/08/18 16:49 Blood Blood Culture - Final Peptostrep Asaccharolyticus 07/08/18 16:49 Blood Gram Stain - Final 07/09/18 01:30 Decubitus - Hip Gram Stain - Final 07/09/18 01:30 Decubitus - Hip Wound Culture - Final Acinetobacter Baumannii Proteus Mirabilis 07/09/18 01:30 Sacral Gram Stain - Final 07/09/18 01:30 Sacral Wound Culture - Final Proteus Mirabilis 07/10/18 23:30 Urine,Farrar Urine Culture - Final No Growth (<1,000 CFU/ML) 07/09/18 01:30 Decubitus - Buttock-Left Gram Stain - Final 07/09/18 01:30 Decubitus - Buttock-Left Wound Culture - Final Acinetobacter Baumannii Proteus Mirabilis 07/09/18 01:30 Decubitus - Shoulder-Left Gram Stain - Final 07/09/18 01:30 Decubitus - Shoulder-Left Wound Culture - Final Proteus Mirabilis Enterococcus Faecalis Corynebacterium Species 07/08/18 18:43 Urine,Farrar Urine Culture - Final >100,000 CFU/ML. MULTIPLE SPECIES. SUGGEST REPEAT SPECIMEN. Most Recent Lab Values WBC 13.1 10^3/uL (4.5-11.0) H 07/17/18 06:20 RBC 3.21 10^6/uL (3.5-6.1) L 07/17/18 06:20 Hgb 8.3 g/dL (12.0-16.0) L 07/17/18 06:20 Hct 26.3 % (36.0-48.0) L 07/17/18 06:20 MCV 81.9 fl (80.0-105.0) 07/17/18 06:20 MCH 25.9 pg (25.0-35.0) 07/17/18 06:20 MCHC 31.6 g/dl (31.0-37.0) 07/17/18 06:20 RDW 16.4 % (11.5-14.5) H 07/17/18 06:20 Plt Count 554 10^3/uL (120.0-450.0) H 07/17/18 06:20 MPV 8.4 fl (7.0-11.0) 07/17/18 06:20 Gran % 75.4 % (50.0-68.0) H 07/17/18 06:20 Lymph % (Auto) 18.9 % (22.0-35.0) L 07/17/18 06:20 Whitman % (Auto) 4.0 % (1.0-6.0) 07/17/18 06:20 Eos % (Auto) 1.5 % (1.5-5.0) 07/17/18 06:20 Baso % (Auto) 0.2 % (0.0-3.0) 07/17/18 06:20 Gran # 9.87 (1.4-6.5) H 07/17/18 06:20 Lymph # (Auto) 2.5 (1.2-3.4) 07/17/18 06:20 Whitman # (Auto) 0.5 (0.1-0.6) 07/17/18 06:20 Eos # (Auto) 0.2 (0.0-0.7) 07/17/18 06:20 Baso # (Auto) 0.02 K/mm3 (0.0-2.0) 07/17/18 06:20 PT 15.3 SECONDS (9.4-12.5) H 07/10/18 07:30 INR 1.32 07/10/18 07:30 APTT 37.9 Seconds (25.1-36.5) H 07/10/18 07:30 pO2 46 mm/Hg (30-55) 07/08/18 16:49 VBG pH 7.47 (7.32-7.43) H 07/08/18 16:49 VBG pCO2 54.0 (40-60) 07/08/18 16:49 VBG HCO3 39.3 mmol/l (21-28) H 07/08/18 16:49 VBG Total CO2 41.0 mmol.L (22-28) H 07/08/18 16:49 VBG O2 Sat (Calc) 85.2 % (40-65) H 07/08/18 16:49 VBG Base Excess 13.3 mmol/L (0.0-2.0) H 07/08/18 16:49 VBG Potassium 4.5 mmol/L (3.6-5.2) 07/08/18 16:49 Sodium 125.0 mmol/L (132-148) L 07/08/18 16:49 Chloride 90.0 mmol/L (98-107) L 07/08/18 16:49 Glucose 134 mg/dl (65-105) H 07/08/18 16:49 Lactate 1.7 mmol/L (0.7-2.1) 07/08/18 16:49 FiO2 21.0 % 07/08/18 16:49 Sodium 143 mmol/L (132-148) 07/17/18 06:20 Potassium 4.2 mmol/L (3.6-5.0) 07/17/18 06:20 Chloride 109 mmol/L (98-107) H 07/17/18 06:20 Carbon Dioxide 31 mmol/L (21-33) 07/17/18 06:20 Anion Gap 7 (10-20) L 07/17/18 06:20 BUN 64 mg/dL (7-21) H 07/17/18 06:20 Creatinine 1.3 mg/dl (0.7-1.2) H 07/17/18 06:20 Est GFR ( Amer) 47 07/17/18 06:20 Est GFR (Non-Af Amer) 39 07/17/18 06:20 Random Glucose 136 mg/dL (70-110) H 07/17/18 06:20 Calcium 8.2 mg/dL (8.4-10.5) L 07/17/18 06:20 Phosphorus 3.3 mg/dL (2.5-4.5) 07/17/18 06:20 Magnesium 1.8 mg/dL (1.7-2.2) 07/17/18 06:20 Total Bilirubin 0.2 mg/dL (0.2-1.3) 07/17/18 06:20 AST 35 U/L (14-36) 07/17/18 06:20 ALT 22 U/L (7-56) 07/17/18 06:20 Alkaline Phosphatase 102 U/L (38-126) 07/17/18 06:20 Total Protein 5.8 g/dL (5.8-8.3) 07/17/18 06:20 Albumin 2.2 g/dL (3.0-4.8) L 07/17/18 06:20 Globulin 3.6 gm/dL 07/17/18 06:20 Albumin/Globulin Ratio 0.6 (1.1-1.8) L 07/17/18 06:20 Procalcitonin 0.58 NG/ML (0.19-0.49) H 07/09/18 08:40 Venous Blood Potassium 4.5 mmol/L (3.6-5.2) 07/08/18 16:49 Urine Color Yellow (YELLOW) 07/08/18 18:43 Urine Appearance Cloudy (CLEAR) 07/08/18 18:43 Urine pH 6.5 (4.7-8.0) 07/08/18 18:43 Ur Specific [place] <= 1.005 (1.005-1.035) 07/08/18 18:43 Urine Protein Negative mg/dL (<30 mg/dL) 07/08/18 18:43 Urine Glucose (UA) Negative mg/dL (NEGATIVE) 07/08/18 18:43 Urine Ketones Negative mg/dL (NEGATIVE) 07/08/18 18:43 Urine Blood Small (NEGATIVE) H 07/08/18 18:43 Urine Nitrate Negative (NEGATIVE) 07/08/18 18:43 Urine Bilirubin Negative (NEGATIVE) 07/08/18 18:43 Urine Urobilinogen 0.2 E.U./dL (<1 E.U./dL) 07/08/18 18:43 Ur Leukocyte Esterase Large Yoselyn/uL (NEGATIVE) H 07/08/18 18:43 Urine RBC 1 - 3 /hpf (0-2) H 07/08/18 18:43 Urine WBC 15 - 20 /hpf (0-6) H 07/08/18 18:43 Ur Epithelial Cells 1 - 3 /hpf (0-5) 07/08/18 18:43 Urine Bacteria Few /hpf (NONE) 07/08/18 18:43 - Hospital Course Hospital Course: Unruly Artis, PGY1 Discharge Summary for Dr. Cavanaugh Patient is a 88 y/o F with a PMHx significant for Parkinson's Disease, Unspecified Dementia, HTN, HLD, TIA, chronic back pain, and multiple SDU's who presented with increased fatigue and confusion for the past several days. She initially presented septic. Medical team was consulted for evaluation. Patient was noted to have UTI, bacteremia, and multiple sacral decubitus ulcers. These were the likely reasons for patient's sepsis. There was a stage 4 sacral decubitus ulcer in which surgical team was consulted. Patient was also noted to have black residue in her PEG tube. As a result, surgery recommended that she have her PEG tube replaced and have debridement of her sacral ulcer. Initial blood cultures were positive for Peptostrep Asachholyticus. Sacral ulcers were also positive for polymicrobial organisms. Patient was started on IV antibiotics. ID and palliative were also brought on the case. PT also evaluated the patient. Patient had successful replacement of her PEG tube and sacral stage 4 ulcer debridement (wound vac in place) on 07/10. Patient has been on antibiotic therapy with IV antibiotics via merrem, vancomycin, and intermittent amikacin. Repeat blood cultures were negative during hospital course. Echo has not shown any signs of vegetations. As per ID recs, patient needs a total of 4 weeks IV merrerm, in which she had a mid-line placed. Patient will be going to a facility upon discharge: [facility]. Discharge Exam - Head Exam Head Exam: ATRAUMATIC, NORMOCEPHALIC - Eye Exam Eye Exam: Normal appearance - ENT Exam ENT Exam: Mucous Membranes Moist - Respiratory Exam Respiratory Exam: Clear to PA & Lateral, NORMAL BREATHING PATTERN. absent: Rales, Rhonchi, Wheezes - Cardiovascular Exam Cardiovascular Exam: RRR, +S1, +S2 - GI/Abdominal Exam GI & Abdominal Exam: Normal Bowel Sounds, Soft. absent: Guarding, Rebound, Rigid, Tenderness Additional comments: G-tube is in place. - Extremities Exam Extremities exam: pedal pulses present - Neurological Exam Neurological exam: Alert - Skin Additional comments: Stage 4 sacral decubitus ulcer. Discharge Plan - Discharge Medications Prescriptions: amLODIPine [Norvasc] 5 mg GT DAILY #30 tab - Follow Up Plan Condition: FAIR Disposition: REHAB FACILITY/REHAB UNIT Instructions: Sepsis in Adults, Pressure Sores (DC), How to Prevent Pressure So res Additional Instructions: 1. Please follow up with primary medical doctor within 3-5 days upon discharge from subacute rehab. 2. You will need 4 weeks of IV Merrem 1gm every 8hrs. Final day is August 09 2018. The midline can be discontinued after completing antibiotics. 3. You will need weekly blood work while on IV antibiotics for 4 weeks. CBC, CMP, ESR and CRP. 4. Patient will need to take NOTHING BY MOUTH. You failed evaluations by speech/swallow. 5. You will need to stay on the wound vac until evaluated by PMD and surgery as outpatient. 6. Wound Vac will need to be changed every 3-4 days. 7. If your symptoms return, please go to the nearest emergency department. Referrals: Reisner,Cat R, MD [Primary Care Provider] - Jason Norman MD [Staff Provider] - <Yenny Cavanaugh - Last Filed: 07/18/18 14:00> Provider - Provider Date of Admission: 07/08/18 19:41 Attending physician: Yenny Cavanaugh MD Primary care physician: Cat Guerra MD Consults: 07/08/18 21:19 Nursing Referral for Wound Care Routine Comment: Physician Instructions: Reason For Exam: Multiple stage 4 SDU Physician Consult Routine Comment: Consulting Provider: Venkat Salinas Consulting Physician: Venkat Salinas Reason for Consult: Leukocytosis; UTI; Multiple Stage 4 SDU 07/09/18 00:07 Physician Consult Routine Comment: Consulting Provider: Jason Norman Consulting Physician: Jason Norman Reason for Consult: ?Need for SDU debridement 07/09/18 09:45 Consult [Physician Consult] Routine Comment: Consulting Provider: Tammy Su Consulting Physician: Tammy Su Reason for Consult: full code, bed bound 07/11/18 03:56 Nursing Referral for Wound Care Routine Comment: Physician Instructions: Reason For Exam: shift assessment 07/13/18 10:47 Case Management Referral Routine Comment: Physician Instructions: Reason For Exam: For home wound vac for sacral ulcer Reason for Referral: [facility] Hospital Course - Lab Results Lab Results: Micro Results 07/12/18 00:30 Blood-Venous Blood Culture - Final NO GROWTH AFTER 5 DAYS 07/12/18 00:30 Blood-Venous Gram Stain - Final TEST NOT PERFORMED 07/12/18 00:45 Blood-Venous Blood Culture - Final NO GROWTH AFTER 5 DAYS 07/12/18 00:45 Blood-Venous Gram Stain - Final TEST NOT PERFORMED 07/08/18 16:49 Blood Blood Culture - Final NO GROWTH AFTER 5 DAYS 07/08/18 16:49 Blood Gram Stain - Final TEST NOT PERFORMED 07/08/18 16:49 Blood S.aureus & Coag-Neg Staph PNA FISH - Final TEST NOT PERFORMED 07/08/18 16:49 Blood Blood Culture - Final Peptostrep Asaccharolyticus 07/08/18 16:49 Blood Gram Stain - Final 07/09/18 01:30 Decubitus - Hip Gram Stain - Final 07/09/18 01:30 Decubitus - Hip Wound Culture - Final Acinetobacter Baumannii Proteus Mirabilis 07/09/18 01:30 Sacral Gram Stain - Final 07/09/18 01:30 Sacral Wound Culture - Final Proteus Mirabilis 07/10/18 23:30 Urine,Farrar Urine Culture - Final No Growth (<1,000 CFU/ML) 07/09/18 01:30 Decubitus - Buttock-Left Gram Stain - Final 07/09/18 01:30 Decubitus - Buttock-Left Wound Culture - Final Acinetobacter Baumannii Proteus Mirabilis 07/09/18 01:30 Decubitus - Shoulder-Left Gram Stain - Final 07/09/18 01:30 Decubitus - Shoulder-Left Wound Culture - Final Proteus Mirabilis Enterococcus Faecalis Corynebacterium Species 07/08/18 18:43 Urine,Farrar Urine Culture - Final >100,000 CFU/ML. MULTIPLE SPECIES. SUGGEST REPEAT SPECIMEN. Most Recent Lab Values WBC 13.1 10^3/uL (4.5-11.0) H 07/17/18 06:20 RBC 3.21 10^6/uL (3.5-6.1) L 07/17/18 06:20 Hgb 8.3 g/dL (12.0-16.0) L 07/17/18 06:20 Hct 26.3 % (36.0-48.0) L 07/17/18 06:20 MCV 81.9 fl (80.0-105.0) 07/17/18 06:20 MCH 25.9 pg (25.0-35.0) 07/17/18 06:20 MCHC 31.6 g/dl (31.0-37.0) 07/17/18 06:20 RDW 16.4 % (11.5-14.5) H 07/17/18 06:20 Plt Count 554 10^3/uL (120.0-450.0) H 07/17/18 06:20 MPV 8.4 fl (7.0-11.0) 07/17/18 06:20 Gran % 75.4 % (50.0-68.0) H 07/17/18 06:20 Lymph % (Auto) 18.9 % (22.0-35.0) L 07/17/18 06:20 Whitman % (Auto) 4.0 % (1.0-6.0) 07/17/18 06:20 Eos % (Auto) 1.5 % (1.5-5.0) 07/17/18 06:20 Baso % (Auto) 0.2 % (0.0-3.0) 07/17/18 06:20 Gran # 9.87 (1.4-6.5) H 07/17/18 06:20 Lymph # (Auto) 2.5 (1.2-3.4) 07/17/18 06:20 Whitman # (Auto) 0.5 (0.1-0.6) 07/17/18 06:20 Eos # (Auto) 0.2 (0.0-0.7) 07/17/18 06:20 Baso # (Auto) 0.02 K/mm3 (0.0-2.0) 07/17/18 06:20 PT 15.3 SECONDS (9.4-12.5) H 07/10/18 07:30 INR 1.32 07/10/18 07:30 APTT 37.9 Seconds (25.1-36.5) H 07/10/18 07:30 pO2 46 mm/Hg (30-55) 07/08/18 16:49 VBG pH 7.47 (7.32-7.43) H 07/08/18 16:49 VBG pCO2 54.0 (40-60) 07/08/18 16:49 VBG HCO3 39.3 mmol/l (21-28) H 07/08/18 16:49 VBG Total CO2 41.0 mmol.L (22-28) H 07/08/18 16:49 VBG O2 Sat (Calc) 85.2 % (40-65) H 07/08/18 16:49 VBG Base Excess 13.3 mmol/L (0.0-2.0) H 07/08/18 16:49 VBG Potassium 4.5 mmol/L (3.6-5.2) 07/08/18 16:49 Sodium 125.0 mmol/L (132-148) L 07/08/18 16:49 Chloride 90.0 mmol/L (98-107) L 07/08/18 16:49 Glucose 134 mg/dl (65-105) H 07/08/18 16:49 Lactate 1.7 mmol/L (0.7-2.1) 07/08/18 16:49 FiO2 21.0 % 07/08/18 16:49 Sodium 143 mmol/L (132-148) 07/17/18 06:20 Potassium 4.2 mmol/L (3.6-5.0) 07/17/18 06:20 Chloride 109 mmol/L (98-107) H 07/17/18 06:20 Carbon Dioxide 31 mmol/L (21-33) 07/17/18 06:20 Anion Gap 7 (10-20) L 07/17/18 06:20 BUN 64 mg/dL (7-21) H 07/17/18 06:20 Creatinine 1.3 mg/dl (0.7-1.2) H 07/17/18 06:20 Est GFR ( Amer) 47 07/17/18 06:20 Est GFR (Non-Af Amer) 39 07/17/18 06:20 Random Glucose 136 mg/dL (70-110) H 07/17/18 06:20 Calcium 8.2 mg/dL (8.4-10.5) L 07/17/18 06:20 Phosphorus 3.3 mg/dL (2.5-4.5) 07/17/18 06:20 Magnesium 1.8 mg/dL (1.7-2.2) 07/17/18 06:20 Total Bilirubin 0.2 mg/dL (0.2-1.3) 07/17/18 06:20 AST 35 U/L (14-36) 07/17/18 06:20 ALT 22 U/L (7-56) 07/17/18 06:20 Alkaline Phosphatase 102 U/L (38-126) 07/17/18 06:20 Total Protein 5.8 g/dL (5.8-8.3) 07/17/18 06:20 Albumin 2.2 g/dL (3.0-4.8) L 07/17/18 06:20 Globulin 3.6 gm/dL 07/17/18 06:20 Albumin/Globulin Ratio 0.6 (1.1-1.8) L 07/17/18 06:20 Procalcitonin 0.58 NG/ML (0.19-0.49) H 07/09/18 08:40 Venous Blood Potassium 4.5 mmol/L (3.6-5.2) 07/08/18 16:49 Urine Color Yellow (YELLOW) 07/08/18 18:43 Urine Appearance Cloudy (CLEAR) 07/08/18 18:43 Urine pH 6.5 (4.7-8.0) 07/08/18 18:43 Ur Specific [place] <= 1.005 (1.005-1.035) 07/08/18 18:43 Urine Protein Negative mg/dL (<30 mg/dL) 07/08/18 18:43 Urine Glucose (UA) Negative mg/dL (NEGATIVE) 07/08/18 18:43 Urine Ketones Negative mg/dL (NEGATIVE) 07/08/18 18:43 Urine Blood Small (NEGATIVE) H 07/08/18 18:43 Urine Nitrate Negative (NEGATIVE) 07/08/18 18:43 Urine Bilirubin Negative (NEGATIVE) 07/08/18 18:43 Urine Urobilinogen 0.2 E.U./dL (<1 E.U./dL) 07/08/18 18:43 Ur Leukocyte Esterase Large Yoselyn/uL (NEGATIVE) H 07/08/18 18:43 Urine RBC 1 - 3 /hpf (0-2) H 07/08/18 18:43 Urine WBC 15 - 20 /hpf (0-6) H 07/08/18 18:43 Ur Epithelial Cells 1 - 3 /hpf (0-5) 07/08/18 18:43 Urine Bacteria Few /hpf (NONE) 07/08/18 18:43 Attending/Attestation - Attestation I have personally seen and examined this patient.: Yes I have fully participated in the care of the patient.: Yes I have reviewed all pertinent clinical information, including history, physical exam and plan: Yes Notes (Text): 07/18/18 13:45 Medical record note made by the resident after discussion with my direction and input after the patient was personally seen and examined by me. I have reviewed the chart and agree that the record accurately reflects by personal performance of the history, physical exam, data review, and medical decision-making, in the course for the patient. I have also personally directed the plan of care. 88 year old female with PMH of of Parkinson's disease, dementia, hypertension, TIA, s/p PEG and multiple sacral decubitus ulcers who presented with sepsis likely secondary to sacral decubitus ulcers and possible UTI. Initial Blood culture was positive for peptostrep asaccharolyticus. Repeat blood cultures are negative. Wound culture from left shoulder grew proteus mirabilis, enterococcus faecalis and corynebacterium species. Wound culture from hip and left buttock grew acinobacter baumannii and proteus mirabilis. Patient was evaluated by surgery, patient is s/p debridement, wound vac and PEG tube replacement earlier this week. Initial Echocardiogram showed small pericardial effusion, no clear vegetation, moderate left pleural effusion with ?organized thrombus or mass in the lung. This was followed up with CT chest showed showed right middle lobe infiltrate and moderate bilateral pleural effusions.Repeat Echo 07/16/18 was also negative for vegetation. Leukocyotosis has improved.Patient is afebrile, will be discharged to [facility] , will need 4 weeks of IV antibiotics as per ID Patient will need weekly CBC,CMP,CRP while on IV antibiotics. Overall prognosis is guarded. 07/18/18 13:59
[2018-07-17 16:45] VITALS: BP 164/82; PULSE 94; O2SAT 99
== END 2018-07-17 20:21 | DRG 853 ==
LOC: ED 16:07 → ERH 19:41 → 2RSO 21:41
PROVIDERS: ADMIT Internal Medicine; ATTEND Internal Medicine
PROC: 0JB70ZZ Excision of Back Subcutaneous Tissue and Fascia, Open Approach (ICD-10-PCS; principal; 2018-07-10 09:30)
PROC: 0D20XUZ Change Feeding Device in Upper Intestinal Tract, External Approach (ICD-10-PCS; 2018-07-10 09:30)
DX: A41.9 Sepsis, unspecified organism (principal); L89.154 Pressure ulcer of sacral region, stage 4; I31.3 Pericardial effusion (noninflammatory); J90 Pleural effusion, not elsewhere classified; J98.11 Atelectasis; N17.9 Acute kidney failure, unspecified; N39.0 Urinary tract infection, site not specified; T85.518A Breakdown (mechanical) of other gastrointestinal prosthetic devices, implants and grafts, initial encounter; L89.150 Pressure ulcer of sacral region, unstageable; E11.9 Type 2 diabetes mellitus without complications; E78.5 Hyperlipidemia, unspecified; D64.9 Anemia, unspecified; F03.90 Unspecified dementia, unspecified severity, without behavioral disturbance, psychotic disturbance, mood disturbance, and anxiety; G20 Parkinson's disease; I10 Essential (primary) hypertension; I27.20 Pulmonary hypertension, unspecified; E87.6 Hypokalemia; Z51.5 Encounter for palliative care; Z74.01 Bed confinement status; Z86.73 Personal history of transient ischemic attack (TIA), and cerebral infarction without residual deficits; B96.4 Proteus (mirabilis) (morganii) as the cause of diseases classified elsewhere; B95.2 Enterococcus as the cause of diseases classified elsewhere; M54.9 Dorsalgia, unspecified; G89.29 Other chronic pain; I08.3 Combined rheumatic disorders of mitral, aortic and tricuspid valves; Z16.24 Resistance to multiple antibiotics

== ENCOUNTER 2018-07-19 19:09 | Inpatient (IN) | payer MEDICARE ==
[2018-07-19 19:12] VITALS: BMI 29.2
[2018-07-19 20:30] LABS: ALB/GLOB RATIO 0.6 (1.1-1.8); ALBUMIN 2.1 g/dL (3.0-4.8); ALT/SGPT 22 U/L (7-56); AST/SGOT 36 U/L (14-36); BLOOD UREA NITROGEN 71 mg/dL (7-21); CALCIUM 7.8 mg/dL (8.4-10.5); GFR NON-AFRICAN AMERICAN 43
[2018-07-19 20:30] LABS: INR 1.01; PARTIAL THROMBOPLASTIN TIME 28.6 Seconds (26.9-38.3); PROTHROMBIN TIME 11.2 SECONDS (9.4-12.5)
--- NOTE | 2018-07-19 20:35 | ED PDOC ---
Arrival/HPI - General Chief Complaint: Abnormal Labs Time Seen by Provider: 07/19/18 19:16 Historian: [facility]irement EM Caveat: Dementia - History of Present Illness Narrative History of Present Illness (Text): 07/19/18 19:40 88 year old female with a past medical history significant for dementia/Parkinson's Disease, Unspecified Dementia, hypertension, hyperlipidemia, TIA, chronic back pain, and multiple SDU's, presents to the [facility] after routine blood work showed hemoglobin of 5. Patient is non-verbal with a history of dementia. Patient is unable to provide any history. HPI and ROS limited due to patient's baseline state of dementia. PMD: Dr. Desouza Past Medical History - Provider Review Nursing Documentation Reviewed: Yes - Past History Past History: No Previous - Infectious Disease Hx of Infectious Diseases: None - Cardiac Hx Pacemaker: No - Pulmonary Hx Respiratory Disorders: No - Neurological Hx Neurological Disorder: Yes HX Cerebrovascular Accident: Yes (TIA) - HEENT Hx HEENT Disorder: Yes (eyeglasses) Other/Comment: eye sx fatty tissue removed from both eyelids - Renal Hx Renal Disorder: No - Endocrine/Metabolic Hx Endocrine Disorders: No - Hematological/Oncological Hx Cancer: No - Integumentary Hx Dermatological Disorder: No - Musculoskeletal/Rheumatological Hx Falls: No - Gastrointestinal Hx Gastrointestinal Disorders: Yes Other/Comment: PEG tube - Genitourinary/Gynecological Hx Genitourinary Disorders: Yes Other/Comment: Farrar - Psychiatric Hx Psychophysiologic Disorder: No Hx Substance Use: No - Surgical History Hx Mastectomy: No - Anesthesia Hx Anesthesia Reactions: No Hx Malignant Hyperthermia: No Family/Social History - Physician Review Nursing Documentation Reviewed: Yes Family/Social History: No Known Family HX Smoking Status: Never Smoked Hx Alcohol Use: No Hx Substance Use: No Allergies/Home Meds Allergies/Adverse Reactions: Allergies No Known Allergies Allergy (Verified 07/08/18 16:41) Home Medications: Home Meds Medication Instructions Recorded Confirmed RX: Albuterol/Ipratropium [Duoneb 3 ml IH Q4 PRN 07/08/18 07/19/18 3 mg/0.5 mg (3 ml) UD] RX: Atorvastatin [Lipitor] 20 mg GT DAILY 07/08/18 07/19/18 RX: Clopidogrel [Plavix] 75 mg GT DAILY 07/08/18 07/19/18 RX: Collagenase [Santyl] 250 unit TP DAILY 07/08/18 07/19/18 RX: Losartan [Cozaar] 50 mg GT DAILY 07/08/18 07/19/18 RX: Memantine [Namenda] 5 mg GT BID 07/08/18 07/19/18 RX: Zinc [Zinc Sulfate 220 mg Cap] 50 mg GT DAILY 07/08/18 07/20/18 Meropenem 1g/NS 100mL IVPB 1 g IV Q8H 07/19/18 07/19/18 RX: Vancomycin 1 GM [Vancomycin 1 g IV Q12H 07/19/18 07/20/18 1GM in Normal Saline Addvantage] Review of Systems - Physician Review All systems were reviewed & negative as marked: Yes - Review of Systems Systems not reviewed;Unavailable: Dementia Physical Exam Vital Signs Reviewed: Yes Vital Signs Temp Pulse Resp BP Pulse Ox 07/19/18 19:45 96.5 F L 07/19/18 19:30 98.9 F 95 H 18 117/56 L 100 Temperature: Afebrile Blood Pressure: Hypotensive Pulse: Regular Respiratory Rate: Normal Appearance: Positive for: Cachectic Pain Distress: None Mental Status: Positive for: other (awake, but nonverbal. Does not follow commands) - Systems Exam Head: Present: Atraumatic Pupils: Present: PERRL Conjunctiva: Present: Other (Conjunctival pallor) Mouth: Present: Moist Mucous Membranes Respiratory/Chest: Present: Clear to Auscultation, Good Air Exchange. No: Respiratory Distress, Accessory Muscle Use Cardiovascular: Present: Regular Rate and Rhythm, Normal S1, S2. No: Murmurs Abdomen: Present: Feeding Tubes (PEG tube to the abdomen), Other (folley cath draining cloudy urine). No: Tenderness, Distention, Peritoneal Signs Back: Present: Other (Large 20cm by 10cm Sacral ulcer stage III and IV. No purulent discharge. Also ulcer 3cm by 3cm to the lower thoracic vertebra. Stage I ulcer to the inferior scapula bilaterally. ) Upper Extremity: Present: Other (PIC line in the right upper extremity. No si gns of surrounding cellulitis. Not moving extremity secondary to dementia). No: Cyanosis, Edema Lower Extremity: Present: Other (Not moving extremity secondary to dementia. Bilateral foot drop). No: Edema Skin: Present: Warm, Dry, Pale. No: Rashes Psychiatric: Present: Alert (but nonverbal. Does not follow any commands. ) Medical Decision Making ED Course and Treatment: 07/19/18 19:40 Impression: 88 year old female [facility] for low hemoglobin of 5. Plan: -- Labs -- EKG -- Reassess and disposition Prior Visits: Notes and results from previous visits were reviewed. Progress Notes: 07/19/18 19:53 EKG shows NSR at 98 BPM with normal axis, normal PA, slightly prolonged QTC, inverted T waves in lateral leads, no ST elevations. Interpreted by me. IV hydration with NS initiated. Labs done showing severe anemia. Hemoccult done and was weakly positive. Type and screen completed and 2u PRBC ordered. Patient to be admitted for further management. 07/19/18 22:15 Case discussed with medical examiner and Dr. Kiah Ruiz who is aware and agrees with the plan. Accepts patient into hospitalist service. Dr. Ruiz and resident both saw patient in the ED. - Lab Interpretations Lab Results: PT 11.2 SECONDS (9.4-12.5) 07/19/18 20:10 INR 1.01 07/19/18 20:10 APTT 28.6 Seconds (26.9-38.3) 07/19/18 20:10 Total Bilirubin < 0.1 mg/dL (0.2-1.3) L 07/19/18 20:10 AST 36 U/L (14-36) 07/19/18 20:10 ALT 22 U/L (7-56) 07/19/18 20:10 Alkaline Phosphatase 79 U/L (38-126) 07/19/18 20:10 Total Protein 5.3 g/dL (5.8-8.3) L 07/19/18 20:10 Albumin 2.1 g/dL (3.0-4.8) L 07/19/18 20:10 Globulin 3.2 gm/dL 07/19/18 20:10 Albumin/Globulin Ratio 0.6 (1.1-1.8) L 07/19/18 20:10 I have reviewed the lab results: Yes - EKG Interpretation Interpreted by ED Physician: Yes Type: 12 lead EKG - Scribe Statement The provider has reviewed the documentation as recorded by the Buzz Jacobson Provider Scribe Attestation: All medical record entries made by the Buzz were at my direction and personally dictated by me. I have reviewed the chart and agree that the record accurately reflects my personal performance of the history, physical exam, medical decision making, and the department course for this patient. I have also personally directed, reviewed, and agree with the discharge instructions and disposition. Disposition/Present on Arrival - Present on Arrival Any Indicators Present on Arrival: Yes History of DVT/PE: No History of Uncontrolled Diabetes: No Urinary Catheter: Yes History of Decub. Ulcer: Yes History Surgical Site Infection Following: None - Disposition Have Diagnosis and Disposition been Completed?: Yes Diagnosis: Sacral decubitus ulcer, stage IV, Anemia Disposition: HOSPITALIZED Disposition Time: 22:18 Condition: GUARDED
[2018-07-19 21:37] LABS: BASO # 0.04 K/mm3 (0.0-2.0); BASO % 0.2 % (0.0-3.0); EOS % 0.2 % (1.5-5.0); GRAN # 11.44 (1.4-6.5); GRAN % 70.1 % (50.0-68.0); LYMPH # 3.9 (1.2-3.4); MEAN CELL VOLUME 82.7 fl (80.0-105.0); MEAN CORPUSCULAR HEMOGLOBIN 25.9 pg (25.0-35.0); MEAN CORPUSCULAR HGB CONC 31.3 g/dl (31.0-37.0); MEAN PLATELET VOLUME 8.9 fl (7.0-11.0); MONO # 0.9 (0.1-0.6); MONO % 5.5 % (1.0-6.0); RBC 1.62 10^6/uL (3.5-6.1); RED CELL DISTRIBUTION WIDTH 17.6 % (11.5-14.5); WHITE BLOOD COUNT 16.3 10^3/uL (4.5-11.0)
[2018-07-19 21:46] LABS: HEMOGLOBIN 4.2 g/dL (12.0-16.0)
--- NOTE | 2018-07-19 22:23 | CP.PCM.HP ---
History of Present Illness - History of Present Illness History of Present Illness: PGY-1 H&P for Dr. Dre Ruiz CC: Abnormal blood results HPI: Mrs. Caldwell is an 88 year old female with a past medical history significant for Parkinson's Disease, Unspecified Dementia, HTN, HLD, TIA, chronic back pain, and multiple SDU's, presents to the emergency department sent in from [facility] after routine blood work showed hemoglobin of 5. She was [place] [facility] for sepsis secondary to UTI, bacteremia, and multiple sacral decubitus ulcers. Patient was discharged to the correction with instructions to continue 4 weeks of IV Merrem. In ED, 2 X units PRBC ordered and started transfusions. HPI and ROS are limited as patient is non-verbal with a history of dementia and unable to provide any history. History obtained from chart review. 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 Desouza Pharmacy: [facility] [place] [facility] Present on Admission - Present on Admission Any Indicators Present on Admission: Yes History of DVT/PE: No History of Uncontrolled Diabetes: No Urinary Catheter: Yes Decubitus Ulcer Present: Yes Decubitus Ulcer Stage: IV Review of Systems - Review of Systems Systems not reviewed;Unavailable: Dementia, Altered Mental Status Past Patient History - Infectious Disease Hx of Infectious Diseases: None - Past Social History Smoking Status: Never Smoked - CARDIAC Hx Pacemaker: No - PULMONARY Hx Respiratory Disorders: No - NEUROLOGICAL Hx Neurological Disorder: Yes HX Cerebrovascular Accident: Yes (TIA) - HEENT Hx HEENT Problems: Yes (eyeglasses) Other/Comment: eye sx fatty tissue removed from both eyelids - RENAL Hx Chronic Kidney Disease: No - ENDOCRINE/METABOLIC Hx Endocrine Disorders: No - HEMATOLOGICAL/ONCOLOGICAL Hx Cancer: No - INTEGUMENTARY Hx Dermatological Problems: No - MUSCULOSKELETAL/RHEUMATOLOGICAL Hx Falls: No - GASTROINTESTINAL Hx Gastrointestinal Disorders: Yes Other/Comment: PEG tube - GENITOURINARY/GYNECOLOGICAL Hx Genitourinary Disorders: Yes Other/Comment: Farrar - PSYCHIATRIC Hx Psychophysiologic Disorder: No Hx Substance Use: No - SURGICAL HISTORY Hx Mastectomy: No - ANESTHESIA Hx Anesthesia Reactions: No Hx Malignant Hyperthermia: No Meds Allergies/Adverse Reactions: Allergies Allergy/AdvReac Type Severity Reaction Status Date / Time No Known Allergies Allergy Verified 07/08/18 16:41 Physical Exam - Constitutional Appears: Non-toxic, Other Additional comments: Patient is non-verbal and does not follow commands. - Head Exam Head Exam: ATRAUMATIC, NORMAL INSPECTION - Eye Exam Eye Exam: EOMI, Normal appearance, PERRL. absent: Scleral icterus - ENT Exam ENT Exam: Mucous Membranes Dry - Neck Exam Neck exam: Positive for: Normal Inspection - Respiratory Exam Respiratory Exam: Clear to Auscultation Bilateral. absent: Accessory Muscle Use , Rales, Rhonchi, Wheezes, Respiratory Distress - Cardiovascular Exam Cardiovascular Exam: RRR, +S1, +S2. absent: Gallop, Rubs, Systolic Murmur - GI/Abdominal Exam GI & Abdominal Exam: Soft. absent: Distended, Firm, Tenderness Additional comments: PEG tube noted on the abdomen. - Rectal Exam Rectal Exam: NORMAL INSPECTION. absent: Black Stool, Bloody Stool, Hemorrhoids, Fecal Impaction Additional comments: No masses palpable. No internal or external hemorrhoids noted. Soft brown stool noted. - Exam Additional comments: Farrar catheter in place, draining cloudy urine - Extremities Exam Extremities exam: Positive for: normal inspection. Negative for: pedal edema Additional comments: PICC line in the right upper extremity. No signs of surrounding cellulitis. - Neurological Exam Additional comments: Patient is non-verbal and does not follow commands. - Psychiatric Exam Psychiatric exam: Flat Affect - Skin Skin Exam: Normal Color, Warm Additional comments: Large 20cm by 10cm Sacral ulcer stage III and IV. No purulent discharge. Also ulcer 3cm by 3cm to the lower thoracic vertebra. Stage I ulcer to the inferior scapula bilaterally. Results - Vital Signs Recent Vital Signs: Last Vital Signs Temp 96.5 F L 07/19/18 19:45 Pulse 91 H 07/19/18 21:16 Resp 18 07/19/18 21:16 BP 107/91 H 07/19/18 21:16 Pulse Ox 100 07/19/18 21:16 - Labs Result Diagrams: 07/19/18 19:46 07/19/18 19:46 Labs: Laboratory Results - last 24 hr 07/19/18 07/19/18 07/19/18 19:46 20:10 20:10 WBC 16.3 H D RBC 1.62 L Hgb 4.2 L* D Hct 13.4 L* MCV 82.7 MCH 25.9 MCHC 31.3 RDW 17.6 H Plt Count 440 MPV 8.9 Gran % 70.1 H Lymph % (Auto) 24.0 [place] % (Auto) 5.5 Eos % (Auto) 0.2 L Baso % (Auto) 0.2 Gran # 11.44 H Lymph # (Auto) 3.9 H [place] # (Auto) 0.9 H Eos # (Auto) 0.0 Baso # (Auto) 0.04 PT 11.2 INR 1.01 APTT 28.6 Sodium 143 Potassium 3.3 L Chloride 107 Carbon Dioxide 31 Anion Gap 8 L BUN 71 H Creatinine 1.2 Est GFR ( Amer) 52 Est GFR (Non-Af Amer) 43 Random Glucose 155 H Calcium 7.8 L Total Bilirubin < 0.1 L AST 36 ALT 22 Alkaline Phosphatase 79 Total Protein 5.3 L Albumin 2.1 L Globulin 3.2 Albumin/Globulin Ratio 0.6 L Blood Type Antibody Screen Crossmatch BBK History Checked 07/19/18 20:10 WBC RBC Hgb Hct MCV MCH MCHC RDW Plt Count MPV Gran % Lymph % (Auto) [place] % (Auto) Eos % (Auto) Baso % (Auto) Gran # Lymph # (Auto) [place] # (Auto) Eos # (Auto) Baso # (Auto) PT INR APTT Sodium Potassium Chloride Carbon Dioxide Anion Gap BUN Creatinine Est GFR ( Amer) Est GFR (Non-Af Amer) Random Glucose Calcium Total Bilirubin AST ALT Alkaline Phosphatase Total Protein Albumin Globulin Albumin/Globulin Ratio Blood Type O POSITIVE Antibody Screen Negative Crossmatch See Detail BBK History Checked Patient has bt Assessment & Plan - Assessment and Plan (Free Text) Assessment: Mrs. Caldwell is an 88 year old female with a past medical history significant for Parkinson's Disease, Unspecified Dementia, HTN, HLD, TIA, chronic back pain, and multiple SDU's, presents to the emergency department sent in from [facility] after routine blood work showed hemoglobin of 5. Plan: Acute blood loss anemia - Likely 2/2 bleeding sacral ulcers, r/o GI bleed - Hb/Hct on admission: 4.2/13.4 - Transfuse 2 units of PRBC - IVF: NS @ 50 mls/hr - Continue to monitor via serial CBC's - Iron studies: Iron 39, TIBC 123, % Sat 32 - Reticulocyte count: 2.56 - Haptoglobin, LDH: pending - Vit B12, Folate: pending - Stool occult blood: pending - ID consulted, Dr. Francisco - EKG: NSR at 98 BPM with normal axis, normal DC, slightly prolonged QTC, inverted T waves in lateral leads, no ST elevations Sacral decubitus ulcer stages III and IV, r/o osteomyelitis - Surgery consulted, Dr. Norman - ID consulted, Dr. Francisco - Wound care nurse consulted - Wound culture: pending - Meropenem 500mg IV Q12 (started on 07/20) - Vancomycin 1g IV QD (started on 07/20) - Zinc 50mg GT QD - Turn, reposition Q2 - Air mattress - ESR, CRP: pending Leukocytosis - WBC: 16.3 - ID consulted, Dr. Francisco - Blood, urine, wound cultures: pending - Procalcitonin: pending - Meropenem 500mg IV Q12 (started on 07/20) - Vancomycin 1g IV QD (started on 07/20) Urinary tract infection - UA: positive for LE, WBC, bacteria, RBC - Urine culture: pending Uremia - Likely 2/2 acute blood loss vs dehydration - BUN/Cr: 71/1.2 - IVF: NS @ 50 mls/hr - Continue to monitor Hypokalemia - K: 3.3 - Continue to monitor - Replete as needed HTN: - Hold home antihypertensive medications due to risk of hypotension 2/2 acute bleeding - Monitor blood pressure HLD - Lipitor 20mg GT QD Dementia - Memantine 5mg GT QD Prophylaxis: - GI: Protonix 40mg IVP QD - DVT: SCD's Case discussed with Dr. Dre Gross, PGY-1
[2018-07-20 00:46] LABS: IRON 39 ug/dL (45-180)
[2018-07-20 00:56] LABS: % IRON SATURATION 32 % (20-55); TOTAL IRON BINDING CAPACITY 123 ug/dL (265-497)
[2018-07-20 01:02] LABS: URINE BILIRUBIN NEGATIVE (NEGATIVE); URINE BLOOD MODERATE (NEGATIVE); URINE GLUCOSE (UA) NEGATIVE (NEGATIVE); URINE LEUKOCYTE ESTERASE MODERATE Leu/uL (NEGATIVE); URINE PROTEIN 30 mg/dL (<30 mg/dL); URINE UROBILINOGEN 0.2 E.U./dL (<1 E.U./dL)
[2018-07-20 01:03] LABS: URINE APPEARANCE CLOUDY (CLEAR); URINE COLOR YELLOW (YELLOW)
[2018-07-20] MEDS: MEROPENEM 500 MG in NS 500 MG/50 ML BAG IVPB SCH ×3 (01:11→21:33)
[2018-07-20] MEDS ORDERED: Sodium Chloride 0.9% 500 ML IV STA (01:26)
[2018-07-20 02:01] LABS: URINE AMORPHOUS SEDIMENT MODERATE /hpf; URINE BACTERIA FEW /hpf
[2018-07-20] MEDS ORDERED: Thrombin Topical 20,000 Intl Units Spray Kit TOP ONE (02:51)
[2018-07-20] MEDS ORDERED: Silver Nitrate Topical - Stick TOP ONE (02:55)
--- NOTE | 2018-07-20 03:03 | CP.PCM.CON ---
History of Present Illness - History of Present Illness History of Present Illness: Surgery Consult Note- Dr. Norman Reason for consult: bleeding Sacral Decubitus Ulcer 88F pmhx significant for Parkinson's Disease, Unspecified Dementia, HTN, HLD, TIA, chronic back pain, and multiple SDU's who presented from [facility] with bleeding sacral ulcer and acute bleeding anemia. Patient is bed bound and intermittenly disoriented at baseline. Patient has been more confused and somnolent. Patient had necrotic wound debridement earlier this month and was placed on wound vac. Upon presentation, there was no wound vac this time. gauze and ABD dressing was soaked with blood. Dressing was reapplied appx 12AM in ED. On the floor there dressing was soaked with blood around 2PM. Surgiseal, gel form and pressure dressing was applied to area that was bleeding on the R sacrum on the bedside. PMH: As stated above PSH: Eyelid Surgery, multiple SDU debridement. 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 absent: Chills Past Patient History - Infectious Disease Hx of Infectious Diseases: None - Past Social History Smoking Status: Never Smoked - CARDIAC Hx Pacemaker: No - PULMONARY Hx Respiratory Disorders: No - NEUROLOGICAL Hx Neurological Disorder: Yes HX Cerebrovascular Accident: Yes (TIA) - HEENT Hx HEENT Problems: Yes (eyeglasses) Other/Comment: eye sx fatty tissue removed from both eyelids - RENAL Hx Chronic Kidney Disease: No - ENDOCRINE/METABOLIC Hx Endocrine Disorders: No - HEMATOLOGICAL/ONCOLOGICAL Hx Cancer: No - INTEGUMENTARY Hx Dermatological Problems: No - MUSCULOSKELETAL/RHEUMATOLOGICAL Hx Falls: No - GASTROINTESTINAL Hx Gastrointestinal Disorders: Yes Other/Comment: PEG tube - GENITOURINARY/GYNECOLOGICAL Hx Genitourinary Disorders: Yes Other/Comment: Farrar - PSYCHIATRIC Hx Psychophysiologic Disorder: No Hx Substance Use: No - SURGICAL HISTORY Hx Mastectomy: No - ANESTHESIA Hx Anesthesia Reactions: No Hx Malignant Hyperthermia: No Meds Allergies/Adverse Reactions: Allergies Allergy/AdvReac Type Severity Reaction Status Date / Time No Known Allergies Allergy Verified 07/08/18 16:41 - Medications Medications: Current Medications Meropenem/Sodium Chloride (Merrem Iv 500 Mg/Ns 50 Ml) 500 mg in 50 mls @ 100 mls/hr IVPB Q12 [facility]; Protocol Stop: 07/20/18 10:29 Last Admin: 07/20/18 01:11 Dose: 100 mls/hr Vancomycin HCl (Vancomycin 1gm) 1 gm in 250 mls @ 167 mls/hr IVPB DAILY [facility]; Protocol Pantoprazole Sodium (Protonix Inj) 40 mg IVP DAILY [facility] Silver Nitrate (Silver Nitrate Topical Stick) 1 swa TOP ONCE ONE Stop: 07/20/18 02:56 Thrombin (Thrombin-Jmi 20,000 Intl Units [place] Kit) 20,000 intlu TOP ONCE ONE Stop: 07/20/18 02:52 Physical Exam - Constitutional Appears: Confused, Chronically Ill - Head Exam Head Exam: ATRAUMATIC, NORMAL INSPECTION, NORMOCEPHALIC - Eye Exam Eye Exam: EOMI, Normal appearance, PERRL Pupil Exam: NORMAL ACCOMODATION, PERRL - ENT Exam ENT Exam: Mucous Membranes Moist, Normal Exam - Neck Exam Neck exam: Positive for: Normal Inspection - Respiratory Exam Respiratory Exam: NORMAL BREATHING PATTERN - Cardiovascular Exam Cardiovascular Exam: REGULAR RHYTHM - GI/Abdominal Exam GI & Abdominal Exam: Soft. absent: Tenderness - Rectal Exam Rectal Exam: NORMAL INSPECTION - Exam Exam: NORMAL INSPECTION - Extremities Exam Extremities exam: Positive for: normal inspection. Negative for: full ROM - Back Exam Back exam: tenderness. absent: FULL ROM, muscle spasm, NORMAL INSPECTION Additional comments: L [id number] deep sacral wound with 2cm undermining, R [id number] sacral wound with 1cm mid lateral area bleeding. mostly granulation tissues , few fibrinic tissues. - Neurological Exam Neurological exam: Altered - Skin Skin Exam: Erythema, Warm Results - Vital Signs Recent Vital Signs: Last Vital Signs Temp 97.9 F 07/20/18 02:41 Pulse 74 07/20/18 02:41 Resp 20 07/20/18 02:41 BP 103/52 L 07/20/18 02:41 Pulse Ox 99 07/20/18 01:40 - Labs Result Diagrams: 07/19/18 19:46 07/19/18 19:46 Labs: Laboratory Results - last 24 hr 07/19/18 07/19/18 07/19/18 19:46 19:46 19:46 WBC 16.3 H D RBC 1.62 L Hgb 4.2 L* D Hct 13.4 L* MCV 82.7 MCH 25.9 MCHC 31.3 RDW 17.6 H Plt Count 440 MPV 8.9 Gran % 70.1 H Lymph % (Auto) 24.0 [place] % (Auto) 5.5 Eos % (Auto) 0.2 L Baso % (Auto) 0.2 Gran # 11.44 H Lymph # (Auto) 3.9 H [place] # (Auto) 0.9 H Eos # (Auto) 0.0 Baso # (Auto) 0.04 Retic Count 2.56 H PT INR APTT Sodium 143 Potassium 3.3 L Chloride 107 Carbon Dioxide 31 Anion Gap 8 L BUN 71 H Creatinine 1.2 Est GFR ( Amer) 52 Est GFR (Non-Af Amer) 43 Random Glucose 155 H Calcium 7.8 L Iron TIBC % Saturation Total Bilirubin < 0.1 L AST 36 ALT 22 Alkaline Phosphatase 79 Total Protein 5.3 L Albumin 2.1 L Globulin 3.2 Albumin/Globulin Ratio 0.6 L Urine Color Urine Appearance Urine pH Ur Specific [place] Urine Protein Urine Glucose (UA) Urine Ketones Urine Blood Urine Nitrate Urine Bilirubin Urine Urobilinogen Ur Leukocyte Esterase Urine RBC Urine WBC Ur Epithelial Cells Amorphous Sediment Urine Bacteria Blood Type Antibody Screen Crossmatch BBK History Checked 07/19/18 07/19/18 07/19/18 20:10 20:10 20:10 WBC RBC Hgb Hct MCV MCH MCHC RDW Plt Count MPV Gran % Lymph % (Auto) [place] % (Auto) Eos % (Auto) Baso % (Auto) Gran # Lymph # (Auto) [place] # (Auto) Eos # (Auto) Baso # (Auto) Retic Count PT 11.2 INR 1.01 APTT 28.6 Sodium Potassium Chloride Carbon Dioxide Anion Gap BUN Creatinine Est GFR ( Amer) Est GFR (Non-Af Amer) Random Glucose Calcium Iron 39 L TIBC 123 L % Saturation 32 Total Bilirubin AST ALT Alkaline Phosphatase Total Protein Albumin Globulin Albumin/Globulin Ratio Urine Color Urine Appearance Urine pH Ur Specific [place] Urine Protein Urine Glucose (UA) Urine Ketones Urine Blood Urine Nitrate Urine Bilirubin Urine Urobilinogen Ur Leukocyte Esterase Urine RBC Urine WBC Ur Epithelial Cells Amorphous Sediment Urine Bacteria Blood Type O POSITIVE Antibody Screen Negative Crossmatch See Detail BBK History Checked Patient has bt 07/20/18 00:35 WBC RBC Hgb Hct MCV MCH MCHC RDW Plt Count MPV Gran % Lymph % (Auto) [place] % (Auto) Eos % (Auto) Baso % (Auto) Gran # Lymph # (Auto) [place] # (Auto) Eos # (Auto) Baso # (Auto) Retic Count PT INR APTT Sodium Potassium Chloride Carbon Dioxide Anion Gap BUN Creatinine Est GFR ( Amer) Est GFR (Non-Af Amer) Random Glucose Calcium Iron TIBC % Saturation Total Bilirubin AST ALT Alkaline Phosphatase Total Protein Albumin Globulin Albumin/Globulin Ratio Urine Color Yellow Urine Appearance Cloudy Urine pH 6.0 Ur Specific [place] 1.020 Urine Protein 30 H Urine Glucose (UA) Negative Urine Ketones Negative Urine Blood Moderate H Urine Nitrate Negative Urine Bilirubin Negative Urine Urobilinogen 0.2 Ur Leukocyte Esterase Moderate H Urine RBC 2 - 5 H Urine WBC 5 - 10 H Ur Epithelial Cells 1 - 3 Amorphous Sediment Moderate Urine Bacteria Few Blood Type Antibody Screen Crossmatch BBK History Checked Assessment & Plan - Assessment and Plan (Free Text) Assessment: Bleeding sacral ulcer Acute anemia Plan: Monitor VS, H/H, bleeding Apply surgiseal, gelform, thrombin or silver nitrate and pressure dressing for hemostasis If conservative management doesn't work, may apply stitch around the bleeding ulcer Wound vac therapy on low suction setting 75mmhg after hemostasis transfuse PRN Will JAMES Norman
[2018-07-20] MEDS ORDERED: Absorbable Gelatin Sponge Size 12-7 TP ONE (03:15)
[2018-07-20] MEDS ORDERED: Sodium Chloride 0.9% 1,000 ML IV SCH (04:15)
--- NOTE | 2018-07-20 09:09 | CP.PCM.PN ---
<Unruly Artis - Last Filed: 07/20/18 12:18> Subjective - Date & Time of Evaluation Date of Evaluation: 07/20/18 Time of Evaluation: 08:00 - Subjective Subjective: Unruly Artis, PGY1 Medicine Progress Note for Dr. Cavanaugh Patient was seen and examined at bedside this morning. She is a poor historian, appropriate ROS was unable to be obtained. Patient was sleeping. Responds to sternal rub and verbal stimuli. Farrar is in place and draining. PEG is in place. A full 12 point ROS was unable to be obtained due to patient's baseline dementia and mental status. Objective - Vital Signs/Intake and Output Vital Signs (last 24 hours): Temp Pulse Resp BP Pulse Ox 98.4 F 83 20 103/54 L 99 07/20/18 06:06 07/20/18 06:06 07/20/18 06:06 07/20/18 06:06 07/20/18 01:40 Intake and Output: 07/20/18 07/20/18 06:59 18:59 Intake Total 670 Output Total 100 Balance 570 - Medications Medications: Current Medications Atorvastatin Calcium (Lipitor) 20 mg GT DAILY [facility] Meropenem/Sodium Chloride (Merrem Iv 500 Mg/Ns 50 Ml) 500 mg in 50 mls @ 100 mls/hr IVPB Q12 [facility]; Protocol Stop: 07/27/18 00:46 Last Admin: 07/20/18 01:11 Dose: 100 mls/hr Vancomycin HCl (Vancomycin 1gm) 1 gm in 250 mls @ 167 mls/hr IVPB DAILY [facility]; Protocol Sodium Chloride (Sodium Chloride 0.9%) 1,000 mls @ 50 mls/hr IV .Q20H [facility] Last Admin: 07/20/18 06:08 Dose: 50 mls/hr Memantine (Namenda) 5 mg GT BID [facility] Pantoprazole Sodium (Protonix Inj) 40 mg IVP DAILY [facility] Zinc Sulfate (Zinc Sulfate 220 Mg Cap) 220 mg GT DAILY [facility] - Labs Labs: 07/19/18 19:46 07/19/18 19:46 PT 11.2 SECONDS (9.4-12.5) 07/19/18 20:10 INR 1.01 07/19/18 20:10 APTT 28.6 Seconds (26.9-38.3) 07/19/18 20:10 - Constitutional Appears: No Acute Distress - Head Exam Head Exam: ATRAUMATIC, NORMAL INSPECTION, NORMOCEPHALIC - Eye Exam Eye Exam: Normal appearance - ENT Exam ENT Exam: Mucous Membranes Moist - Respiratory Exam Respiratory Exam: Clear to Ausculation Bilateral. absent: Rales, Rhonchi, Wheezes - Cardiovascular Exam Cardiovascular Exam: REGULAR RHYTHM, +S1, +S2. absent: Murmur - GI/Abdominal Exam GI & Abdominal Exam: Soft, Normal Bowel Sounds. absent: Tenderness Additional comments: G-tube in place. Dark stool is noted. - Extremities Exam Extremities Exam: Full ROM Additional comments: Mild pitting edema bilaterally. - Neurological Exam Neurological Exam: Oriented x3. absent: Alert, Normal Gait - Skin Skin Exam: Dry, Warm Additional comments: Sacral stage 4 decubitus ulcers present. Assessment and Plan - Assessment and Plan (Free Text) Assessment: Patient is a 88 y/o F with PMHx Parkinson's disease, Unspecified dementia, HTN, HLD, TIA, chronic back pain, and multiple sacral decubitus ulcers who [facility] the ED from [facility] for anemia. Patient was [place] [facility] [place] for Sepsis 2/2 bacteremia, stage 4 sacral ulcer, and UTI. She had a recent sacral debridement and PEG tube replacement. Surgery and ID is on board. Plan: Acute Anemia 2/2 Stage 4 Sacral Decubitus Ulcer - Hgb on admission was 4.2; s/p x2 pRBC transfusion with repeat Hgb 8.7 - c/w merrem IV antibiotics as patient was supposed to receive a total of 4 weeks IV antibiotics - c/w vanco - ID is on consult. Follow up recommendations - Surgery is on consult. Recs appreciated: conservative management for now, transfuse as needed, pressure dressing applied. - Low iron level and TIBC suggestive of anemia of chronic disease - f/u wound cx, blood cx - f/u hemolytic labs - f/u procal Dysphagia with PEG tube - Dark stool noted in the G-tube; nurse advised to monitor for any bloody stools - restarted on tube feeds - c/w protonix - discontinued IVF as patient is getting tube feeds - PEG tube was replaced on previous admission by Surgical team UTI - c/w antibx - will follow up cultures - WBC is 16.3 however patient has been afebrile and her wbc was elevated upon prior admission as well Hypokalemia - K was 3.3 - Repleted; monitor K Hx Parkinson's and Dementia - c/w memantine Hx HLD - c/w Lipitor GI ppx: ptx DVT ppx: scds Case was discussed and reviewed with Attending Physician, Dr. Cavanaugh <Yenny Cavanaugh - Last Filed: 07/22/18 14:10> Objective - Vital Signs/Intake and Output Vital Signs (last 24 hours): Temp Pulse Resp BP Pulse Ox 97.8 F 100 H 20 115/59 L 98 07/22/18 08:53 07/22/18 08:53 07/22/18 08:53 07/22/18 08:53 07/22/18 08:53 Intake and Output: 07/22/18 07/22/18 06:59 18:59 Intake Total 900 Output Total 650 Balance 250 - Medications Medications: Current Medications Amino Acid Protein (Prostat 15 G Packet) 15 gm GT BID [facility] Last Admin: 07/21/18 18:20 Dose: 15 gm Atorvastatin Calcium (Lipitor) 20 mg GT DAILY [facility] Last Admin: 07/22/18 10:26 Dose: 20 mg Meropenem/Sodium Chloride (Merrem Iv 500 Mg/Ns 50 Ml) 500 mg in 50 mls @ 100 mls/hr IVPB Q12 [facility]; Protocol Stop: 07/27/18 00:46 Last Admin: 07/22/18 10:22 Dose: 100 mls/hr Memantine (Namenda) 5 mg GT BID [facility] Last Admin: 07/22/18 10:21 Dose: 5 mg Pantoprazole Sodium (Protonix Susp) 40 mg PEG 0600 [facility] Zinc Sulfate (Zinc Sulfate 220 Mg Cap) 220 mg GT DAILY [facility] Last Admin: 07/22/18 10:21 Dose: 220 mg - Labs Labs: 07/22/18 07:30 07/22/18 07:30 PT 11.2 SECONDS (9.4-12.5) 07/19/18 20:10 INR 1.01 07/19/18 20:10 APTT 28.6 Seconds (26.9-38.3) 07/19/18 20:10 Attending/Attestation - Attestation I have personally seen and examined this patient.: Yes I have fully participated in the care of the patient.: Yes I have reviewed all pertinent clinical information, including history, physical exam and plan: Yes Notes (Text): 07/22/18 14:10 Medical record note made by the resident after discussion with my direction and input after the patient was personally seen and examined by me. I have reviewed the chart and agree that the record accurately reflects by personal performance of the history, physical exam, data review, and medical decision-making, in the course for the patient. I have also personally directed the plan of care.
[2018-07-20 09:11] LABS: BASO # 0.04 K/mm3 (0.0-2.0); BASO % 0.2 % (0.0-3.0); EOS # 0.1 (0.0-0.7); EOS % 0.4 % (1.5-5.0); GRAN # 13.84 (1.4-6.5); GRAN % 74.3 % (50.0-68.0); HEMOGLOBIN 8.7 g/dL (12.0-16.0); LYMPH # 3.7 (1.2-3.4); LYMPH % 19.8 % (22.0-35.0); MEAN CELL VOLUME 87.3 fl (80.0-105.0); MEAN CORPUSCULAR HEMOGLOBIN 29.9 pg (25.0-35.0); MEAN CORPUSCULAR HGB CONC 34.3 g/dl (31.0-37.0); MEAN PLATELET VOLUME 8.9 fl (7.0-11.0); MONO % 5.3 % (1.0-6.0); RBC 2.91 10^6/uL (3.5-6.1); RED CELL DISTRIBUTION WIDTH 16.9 % (11.5-14.5); WHITE BLOOD COUNT 18.6 10^3/uL (4.5-11.0)
--- NOTE | 2018-07-20 09:14 | CP.PCM.CON ---
<Pierce Ortiz - Last Filed: 07/20/18 13:12> History of Present Illness - History of Present Illness History of Present Illness: Infectious dx consult note: 88 year old female with a PMHx of Parkinson's Disease, Dementia, HTN, HLD, TIA, chronic back pain, and multiple SDU's, presents from halfway after boodwork showed hemoglobin of 5. Of note patient was [place] [facility] [place] 2/2 UTI, bacteremia, and multiple sacral decubitus ulcers s/p sacral decub debridement during the admission. Patient was noted to be bleeding from her sacral decubiti in the halfway. ID consulted for abx, sacral decub ulcer, and leukocytosis. 12 Point ROS limited to patient dementia PMH: as above PSH: Eyelid Surgery, multiple SDU's debridement Family History: Noncontributory Social History: Denies any smoking, alcohol or illicit drug use; Bed bound Allergies: NKA Review of Systems - Review of Systems Systems not reviewed;Unavailable: Dementia Past Patient History - Infectious Disease Hx of Infectious Diseases: None - Past Social History Smoking Status: Never Smoked - CARDIAC Hx Pacemaker: No - PULMONARY Hx Respiratory Disorders: No - NEUROLOGICAL Hx Neurological Disorder: Yes HX Cerebrovascular Accident: Yes (TIA) - HEENT Hx HEENT Problems: Yes (eyeglasses) Other/Comment: eye sx fatty tissue removed from both eyelids - RENAL Hx Chronic Kidney Disease: No - ENDOCRINE/METABOLIC Hx Endocrine Disorders: No - HEMATOLOGICAL/ONCOLOGICAL Hx Cancer: No - INTEGUMENTARY Hx Dermatological Problems: No - MUSCULOSKELETAL/RHEUMATOLOGICAL Hx Falls: No - GASTROINTESTINAL Hx Gastrointestinal Disorders: Yes Other/Comment: PEG tube - GENITOURINARY/GYNECOLOGICAL Hx Genitourinary Disorders: Yes Other/Comment: Farrar - PSYCHIATRIC Hx Psychophysiologic Disorder: No Hx Substance Use: No - SURGICAL HISTORY Hx Mastectomy: No - ANESTHESIA Hx Anesthesia Reactions: No Hx Malignant Hyperthermia: No Meds Allergies/Adverse Reactions: Allergies Allergy/AdvReac Type Severity Reaction Status Date / Time No Known Allergies Allergy Verified 07/08/18 16:41 - Medications Medications: Current Medications Atorvastatin Calcium (Lipitor) 20 mg GT DAILY [facility] Meropenem/Sodium Chloride (Merrem Iv 500 Mg/Ns 50 Ml) 500 mg in 50 mls @ 100 mls/hr IVPB Q12 [facility]; Protocol Stop: 07/27/18 00:46 Last Admin: 07/20/18 01:11 Dose: 100 mls/hr Vancomycin HCl (Vancomycin 1gm) 1 gm in 250 mls @ 167 mls/hr IVPB DAILY [facility]; Protocol Sodium Chloride (Sodium Chloride 0.9%) 1,000 mls @ 50 mls/hr IV .Q20H [facility] Last Admin: 07/20/18 06:08 Dose: 50 mls/hr Memantine (Namenda) 5 mg GT BID [facility] Pantoprazole Sodium (Protonix Inj) 40 mg IVP DAILY [facility] Zinc Sulfate (Zinc Sulfate 220 Mg Cap) 220 mg GT DAILY [facility] Physical Exam - Constitutional Appears: No Acute Distress - Head Exam Head Exam: ATRAUMATIC, NORMOCEPHALIC - Eye Exam Eye Exam: EOMI - ENT Exam ENT Exam: Mucous Membranes Moist - Respiratory Exam Respiratory Exam: Clear to Auscultation Bilateral (no rrw) - Cardiovascular Exam Cardiovascular Exam: REGULAR RHYTHM, +S1, +S2 - GI/Abdominal Exam GI & Abdominal Exam: Normal Bowel Sounds, Soft - Extremities Exam Extremities exam: Negative for: calf tenderness, pedal edema - Neurological Exam Neurological exam: Alert - Psychiatric Exam Psychiatric exam: Normal Mood - Skin Skin Exam: Dry, Warm Additional comments: L [id number] deep sacral wound ; R [id number] sacral wound Results - Vital Signs Recent Vital Signs: Last Vital Signs Temp 98.4 F 07/20/18 06:06 Pulse 83 07/20/18 06:06 Resp 20 07/20/18 06:06 BP 103/54 L 07/20/18 06:06 Pulse Ox 99 07/20/18 01:40 - Labs Result Diagrams: 07/20/18 08:45 07/20/18 08:45 Labs: Laboratory Results - last 24 hr 07/19/18 07/19/18 07/19/18 19:46 19:46 19:46 WBC 16.3 H D RBC 1.62 L Hgb 4.2 L* D Hct 13.4 L* MCV 82.7 MCH 25.9 MCHC 31.3 RDW 17.6 H Plt Count 440 MPV 8.9 Gran % 70.1 H Lymph % (Auto) 24.0 [place] % (Auto) 5.5 Eos % (Auto) 0.2 L Baso % (Auto) 0.2 Gran # 11.44 H Lymph # (Auto) 3.9 H [place] # (Auto) 0.9 H Eos # (Auto) 0.0 Baso # (Auto) 0.04 Retic Count 2.56 H PT INR APTT Sodium 143 Potassium 3.3 L Chloride 107 Carbon Dioxide 31 Anion Gap 8 L BUN 71 H Creatinine 1.2 Est GFR ( Amer) 52 Est GFR (Non-Af Amer) 43 Random Glucose 155 H Calcium 7.8 L Iron TIBC % Saturation Total Bilirubin < 0.1 L AST 36 ALT 22 Alkaline Phosphatase 79 Total Protein 5.3 L Albumin 2.1 L Globulin 3.2 Albumin/Globulin Ratio 0.6 L Urine Color Urine Appearance Urine pH Ur Specific [place] Urine Protein Urine Glucose (UA) Urine Ketones Urine Blood Urine Nitrate Urine Bilirubin Urine Urobilinogen Ur Leukocyte Esterase Urine RBC Urine WBC Ur Epithelial Cells Amorphous Sediment Urine Bacteria Blood Type Antibody Screen Crossmatch BBK History Checked 07/19/18 07/19/18 07/19/18 20:10 20:10 20:10 WBC RBC Hgb Hct MCV MCH MCHC RDW Plt Count MPV Gran % Lymph % (Auto) [place] % (Auto) Eos % (Auto) Baso % (Auto) Gran # Lymph # (Auto) [place] # (Auto) Eos # (Auto) Baso # (Auto) Retic Count PT 11.2 INR 1.01 APTT 28.6 Sodium Potassium Chloride Carbon Dioxide Anion Gap BUN Creatinine Est GFR ( Amer) Est GFR (Non-Af Amer) Random Glucose Calcium Iron 39 L TIBC 123 L % Saturation 32 Total Bilirubin AST ALT Alkaline Phosphatase Total Protein Albumin Globulin Albumin/Globulin Ratio Urine Color Urine Appearance Urine pH Ur Specific [place] Urine Protein Urine Glucose (UA) Urine Ketones Urine Blood Urine Nitrate Urine Bilirubin Urine Urobilinogen Ur Leukocyte Esterase Urine RBC Urine WBC Ur Epithelial Cells Amorphous Sediment Urine Bacteria Blood Type O POSITIVE Antibody Screen Negative Crossmatch See Detail BBK History Checked Patient has bt 07/20/18 00:35 WBC RBC Hgb Hct MCV MCH MCHC RDW Plt Count MPV Gran % Lymph % (Auto) [place] % (Auto) Eos % (Auto) Baso % (Auto) Gran # Lymph # (Auto) [place] # (Auto) Eos # (Auto) Baso # (Auto) Retic Count PT INR APTT Sodium Potassium Chloride Carbon Dioxide Anion Gap BUN Creatinine Est GFR ( Amer) Est GFR (Non-Af Amer) Random Glucose Calcium Iron TIBC % Saturation Total Bilirubin AST ALT Alkaline Phosphatase Total Protein Albumin Globulin Albumin/Globulin Ratio Urine Color Yellow Urine Appearance Cloudy Urine pH 6.0 Ur Specific [place] 1.020 Urine Protein 30 H Urine Glucose (UA) Negative Urine Ketones Negative Urine Blood Moderate H Urine Nitrate Negative Urine Bilirubin Negative Urine Urobilinogen 0.2 Ur Leukocyte Esterase Moderate H Urine RBC 2 - 5 H Urine WBC 5 - 10 H Ur Epithelial Cells 1 - 3 Amorphous Sediment Moderate Urine Bacteria Few Blood Type Antibody Screen Crossmatch BBK History Checked Assessment & Plan - Assessment and Plan (Free Text) Assessment: 88 year old female with a PMHx of Parkinson's Disease, Dementia, HTN, HLD, TIA, chronic back pain, and multiple SDU's, presents from halfway after boodwork showed hemoglobin of 5. presents with acute anemia with Hb of 4.2 s/p 2 units PRBC. - Continue with Karen, will discontinue Vanc - F/ blood culture and wound cx - F/u surgery recs - Cont to monitor clinically Case and plan was reviewed and discussed with Dr Francisco. <Miles Francisco - Last Filed: 07/20/18 14:57> Meds - Medications Medications: Current Medications Amino Acid Protein (Prostat 15 G Packet) 15 gm GT BID [facility] Atorvastatin Calcium (Lipitor) 20 mg GT DAILY [facility] Last Admin: 07/20/18 10:42 Dose: 20 mg Meropenem/Sodium Chloride (Merrem Iv 500 Mg/Ns 50 Ml) 500 mg in 50 mls @ 100 mls/hr IVPB Q12 [facility]; Protocol Stop: 07/27/18 00:46 Last Admin: 07/20/18 10:42 Dose: 100 mls/hr Memantine (Namenda) 5 mg GT BID [facility] Last Admin: 07/20/18 10:42 Dose: 5 mg Pantoprazole Sodium (Protonix Inj) 40 mg IVP DAILY [facility] Last Admin: 07/20/18 10:41 Dose: 40 mg Zinc Sulfate (Zinc Sulfate 220 Mg Cap) 220 mg GT DAILY [facility] Last Admin: 07/20/18 10:42 Dose: 220 mg Results - Vital Signs Recent Vital Signs: Last Vital Signs Temp 97.6 F 07/20/18 12:00 Pulse 86 07/20/18 12:00 Resp 18 01/25/19 12:00 BP 128/66 07/20/18 12:00 Pulse Ox 99 07/20/18 01:40 - Labs Result Diagrams: 07/20/18 08:45 07/20/18 08:45 Labs: Laboratory Results - last 24 hr 07/19/18 07/19/18 07/19/18 19:46 19:46 19:46 WBC 16.3 H D RBC 1.62 L Hgb 4.2 L* D Hct 13.4 L* MCV 82.7 MCH 25.9 MCHC 31.3 RDW 17.6 H Plt Count 440 MPV 8.9 Gran % 70.1 H Lymph % (Auto) 24.0 [place] % (Auto) 5.5 Eos % (Auto) 0.2 L Baso % (Auto) 0.2 Gran # 11.44 H Lymph # (Auto) 3.9 H [place] # (Auto) 0.9 H Eos # (Auto) 0.0 Baso # (Auto) 0.04 ESR Retic Count 2.56 H Haptoglobin PT INR APTT Sodium 143 Potassium 3.3 L Chloride 107 Carbon Dioxide 31 Anion Gap 8 L BUN 71 H Creatinine 1.2 Est GFR ( Amer) 52 Est GFR (Non-Af Amer) 43 Random Glucose 155 H Calcium 7.8 L Phosphorus Magnesium Iron TIBC % Saturation Ferritin Total Bilirubin < 0.1 L AST 36 ALT 22 Alkaline Phosphatase 79 Lactate Dehydrogenase C-Reactive Protein Total Protein 5.3 L Albumin 2.1 L Globulin 3.2 Albumin/Globulin Ratio 0.6 L Vitamin B12 Folate Procalcitonin Urine Color Urine Appearance Urine pH Ur Specific [place] Urine Protein Urine Glucose (UA) Urine Ketones Urine Blood Urine Nitrate Urine Bilirubin Urine Urobilinogen Ur Leukocyte Esterase Urine RBC Urine WBC Ur Epithelial Cells Amorphous Sediment Urine Bacteria Blood Type Antibody Screen Crossmatch BBK History Checked 07/19/18 07/19/18 07/19/18 20:10 20:10 20:10 WBC RBC Hgb Hct MCV MCH MCHC RDW Plt Count MPV Gran % Lymph % (Auto) [place] % (Auto) Eos % (Auto) Baso % (Auto) Gran # Lymph # (Auto) [place] # (Auto) Eos # (Auto) Baso # (Auto) ESR Retic Count Haptoglobin PT 11.2 INR 1.01 APTT 28.6 Sodium Potassium Chloride Carbon Dioxide Anion Gap BUN Creatinine Est GFR ( Amer) Est GFR (Non-Af Amer) Random Glucose Calcium Phosphorus Magnesium Iron 39 L TIBC 123 L % Saturation 32 Ferritin Total Bilirubin AST ALT Alkaline Phosphatase Lactate Dehydrogenase C-Reactive Protein Total Protein Albumin Globulin Albumin/Globulin Ratio Vitamin B12 Folate Procalcitonin Urine Color Urine Appearance Urine pH Ur Specific [place] Urine Protein Urine Glucose (UA) Urine Ketones Urine Blood Urine Nitrate Urine Bilirubin Urine Urobilinogen Ur Leukocyte Esterase Urine RBC Urine WBC Ur Epithelial Cells Amorphous Sediment Urine Bacteria Blood Type O POSITIVE Antibody Screen Negative Crossmatch See Detail BBK History Checked Patient has bt 07/19/18 07/20/18 07/20/18 20:10 00:35 08:45 WBC RBC Hgb Hct MCV MCH MCHC RDW Plt Count MPV Gran % Lymph % (Auto) [place] % (Auto) Eos % (Auto) Baso % (Auto) Gran # Lymph # (Auto) [place] # (Auto) Eos # (Auto) Baso # (Auto) ESR Retic Count Haptoglobin PT INR APTT Sodium Potassium Chloride Carbon Dioxide Anion Gap BUN Creatinine Est GFR ( Amer) Est GFR (Non-Af Amer) Random Glucose Calcium Phosphorus Magnesium Iron TIBC % Saturation Ferritin 332.0 Total Bilirubin AST ALT Alkaline Phosphatase Lactate Dehydrogenase C-Reactive Protein Total Protein Albumin Globulin Albumin/Globulin Ratio Vitamin B12 Folate Procalcitonin 0.15 L Urine Color Yellow Urine Appearance Cloudy Urine pH 6.0 Ur Specific [place] 1.020 Urine Protein 30 H Urine Glucose (UA) Negative Urine Ketones Negative Urine Blood Moderate H Urine Nitrate Negative Urine Bilirubin Negative Urine Urobilinogen 0.2 Ur Leukocyte Esterase Moderate H Urine RBC 2 - 5 H Urine WBC 5 - 10 H Ur Epithelial Cells 1 - 3 Amorphous Sediment Moderate Urine Bacteria Few Blood Type Antibody Screen Crossmatch BBK History Checked 07/20/18 07/20/18 07/20/18 08:45 08:45 08:45 WBC 18.6 H RBC 2.91 L Hgb 8.7 L D Hct 25.4 L MCV 87.3 D MCH 29.9 MCHC 34.3 RDW 16.9 H Plt Count 315 MPV 8.9 Gran % 74.3 H Lymph % (Auto) 19.8 L [place] % (Auto) 5.3 Eos % (Auto) 0.4 L Baso % (Auto) 0.2 Gran # 13.84 H Lymph # (Auto) 3.7 H [place] # (Auto) 1.0 H Eos # (Auto) 0.1 Baso # (Auto) 0.04 ESR 38 H Retic Count Haptoglobin 165.2 PT INR APTT Sodium 144 Potassium 3.5 L Chloride 109 H Carbon Dioxide 31 Anion Gap 8 L BUN 66 H Creatinine 1.1 Est GFR ( Amer) 57 Est GFR (Non-Af Amer) 47 Random Glucose 90 Calcium 7.5 L Phosphorus 3.2 Magnesium 1.8 Iron TIBC % Saturation Ferritin Total Bilirubin 0.2 AST 57 H D ALT 35 Alkaline Phosphatase 70 Lactate Dehydrogenase 512 C-Reactive Protein 31.50 H Total Protein 5.0 L Albumin 1.9 L Globulin 3.1 Albumin/Globulin Ratio 0.6 L Vitamin B12 > 1000 H Folate 9.3 Procalcitonin Urine Color Urine Appearance Urine pH Ur Specific [place] Urine Protein Urine Glucose (UA) Urine Ketones Urine Blood Urine Nitrate Urine Bilirubin Urine Urobilinogen Ur Leukocyte Esterase Urine RBC Urine WBC Ur Epithelial Cells Amorphous Sediment Urine Bacteria Blood Type Antibody Screen Crossmatch BBK History Checked Assessment & Plan - Assessment and Plan (Free Text) Assessment: Infectious diseases Attending Physician Attestation Patient seen and examined, discussed with medical facilities section director. I have reviewed the patient's history of present illness, past medical, social, personal and family histories, pertinent physical exam findings, course so far in this hospital admission, pertinent laboratory and imaging results. I agree with the above findings, assessment and plan. In addition, continue Merrem for patient with Peptostrep bacteremia and osteomyelitis of sacral decubitus. Now with bleeding of sacral decubitus and follow up further surgical plans.
[2018-07-20 09:32] LABS: ALB/GLOB RATIO 0.6 (1.1-1.8); ALBUMIN 1.9 g/dL (3.0-4.8); ALT/SGPT 35 U/L (7-56); AST/SGOT 57 U/L (14-36); BLOOD UREA NITROGEN 66 mg/dL (7-21); CALCIUM 7.5 mg/dL (8.4-10.5); GFR NON-AFRICAN AMERICAN 47
--- NOTE | 2018-07-20 09:44 | RAD ---
Date of service: 07/20/2018 HISTORY: anemia COMPARISON: No prior. FINDINGS: LUNGS: No active pulmonary disease. PLEURA: No significant pleural effusion identified, no pneumothorax apparent. CARDIOVASCULAR: Aortic calcification Normal cardiac size. No pulmonary vascular congestion. OSSEOUS STRUCTURES: No significant abnormalities. VISUALIZED UPPER ABDOMEN: Normal. OTHER FINDINGS: None. IMPRESSION: No active disease.
[2018-07-20] MEDS ORDERED: Potassium Chloride 40 mEq/30 ml LIQ UD PO ONE (09:56)
[2018-07-20] MEDS ORDERED: Vancomycin 1gm in NS 250ml 1 GM/250 ML BAG IVPB SCH (10:00)
[2018-07-20 13:08] LABS: FOLATE 9.3 ng/mL
--- NOTE | 2018-07-20 15:52 | CARD ---
APPROVED REPORT Date of service: 07/19/2018 EKG Measurement Heart [id number] <Conclusion> Normal sinus rhythm Nonspecific T wave abnormality Abnormal ECG
[2018-07-20] MEDS: Prostat 15 g packet GT SCH (18:06)
[2018-07-21 09:32] LABS: HEMOGLOBIN 8.2 g/dL (12.0-16.0); MEAN CORPUSCULAR HEMOGLOBIN 29.4 pg (25.0-35.0); MEAN CORPUSCULAR HGB CONC 32.7 g/dl (31.0-37.0); MEAN PLATELET VOLUME 8.8 fl (7.0-11.0); RBC 2.79 10^6/uL (3.5-6.1); RED CELL DISTRIBUTION WIDTH 18.3 % (11.5-14.5); WHITE BLOOD COUNT 15.7 10^3/uL (4.5-11.0)
[2018-07-21 09:41] LABS: ALB/GLOB RATIO 0.6 (1.1-1.8); ALBUMIN 2.1 g/dL (3.0-4.8); CALCIUM 7.8 mg/dL (8.4-10.5)
--- NOTE | 2018-07-21 10:26 | CP.PCM.PN ---
<Iman Valera - Last Filed: 07/21/18 11:02> Subjective - Date & Time of Evaluation Date of Evaluation: 07/21/18 Time of Evaluation: 11:03 - Subjective Subjective: Iman Valera, PGY-[address] Cavanaugh: Pt was seen and examined this AM at bedside. Pt does not speak and therefore unable to assess relevant ROS on the pt. Pt continues to respond to sternal rub and verbal stimuli. Farrar and G tube in place and functioning. Objective - Vital Signs/Intake and Output Vital Signs (last 24 hours): Temp Pulse Resp BP Pulse Ox 98.6 F 92 H 20 128/63 99 07/21/18 05:27 07/21/18 05:27 07/21/18 00:01 07/21/18 05:27 07/20/18 01:40 Intake and Output: 07/21/18 07/21/18 06:59 18:59 Intake Total 200 Output Total 1302 Balance -1102 - Medications Medications: Current Medications Amino Acid Protein (Prostat 15 G Packet) 15 gm GT BID [facility] Last Admin: 07/20/18 18:06 Dose: 15 gm Atorvastatin Calcium (Lipitor) 20 mg GT DAILY [facility] Last Admin: 07/20/18 10:42 Dose: 20 mg Meropenem/Sodium Chloride (Merrem Iv 500 Mg/Ns 50 Ml) 500 mg in 50 mls @ 100 mls/hr IVPB Q12 [facility]; Protocol Stop: 07/27/18 00:46 Last Admin: 07/20/18 21:33 Dose: 100 mls/hr Memantine (Namenda) 5 mg GT BID [facility] Last Admin: 07/20/18 18:06 Dose: 5 mg Pantoprazole Sodium (Protonix Inj) 40 mg IVP DAILY [facility] Last Admin: 07/20/18 10:41 Dose: 40 mg Zinc Sulfate (Zinc Sulfate 220 Mg Cap) 220 mg GT DAILY [facility] Last Admin: 07/20/18 10:42 Dose: 220 mg - Labs Labs: 07/21/18 09:00 07/21/18 09:00 PT 11.2 SECONDS (9.4-12.5) 07/19/18 20:10 INR 1.01 07/19/18 20:10 APTT 28.6 Seconds (26.9-38.3) 07/19/18 20:10 - Constitutional Appears: Non-toxic, No Acute Distress - Head Exam Head Exam: ATRAUMATIC, NORMOCEPHALIC - Eye Exam Eye Exam: Normal appearance - Respiratory Exam Respiratory Exam: Clear to Ausculation Bilateral, NORMAL BREATHING PATTERN. absent: Accessory Muscle Use, Rales, Rhonchi, Wheezes, Respiratory Distress - Cardiovascular Exam Cardiovascular Exam: RRR, +S1, +S2. absent: Gallop, Rubs - GI/Abdominal Exam GI & Abdominal Exam: Soft, Normal Bowel Sounds. absent: Firm, Guarding, Rigid, Tenderness Additional comments: G tube in place - Extremities Exam Extremities Exam: Pedal Edema (trace pitting edema noted b/l) - Back Exam Back Exam: NORMAL INSPECTION - Neurological Exam Neurological Exam: absent: Alert, Awake Additional comments: responds to sternal rub - Psychiatric Exam Additional comments: Pt responds to sternal rub - Skin Additional comments: Sacral stage 4 decub ulcer Assessment and Plan - Assessment and Plan (Free Text) Assessment: Pt is a 88 yo F with pmhx of Parkinson's disease, Unspecified dementia, HTN, HLD, TIA, chronic back pain, and multiple sacral decubitus ulcers who presented to the ED from intermediate facility for anemia. Pt was recently discharged from [facility] on IV antibiotics for Sepsis 2/2 bacteremia, stage 4 sacral ulcer, and UTI. She had a recent sacral debridement and PEG tube replacement. Surgery and ID is on board. Plan: 1) Acute Anemia 2/2 Stage 4 Sacral Decubitus Ulcer - Hgb on admission was 4.2; s/p x2 pRBC transfusion with repeat Hgb 8.7 - c/w merrem IV antibiotics as patient was supposed to receive a total of 4 weeks IV antibiotics - Vanc d/shana per ID - ID is on consult. Follow up recommendations - Surgery is on consult. Recs appreciated: Wound vac monday - Low iron level and TIBC suggestive of anemia of chronic disease - Wound cx: Gram (-) Rods - Blood cx: Cont to be (-) - Procal: low .15 2) Dysphagia with PEG tube: - restarted on tube feeds - Cont protonix 40mg IVP - discontinued IVF as patient is getting tube feeds - PEG tube was replaced on previous admission by Surgical team 3) UTI: - Cont with Merrem - UCx: (-) - WBC is 15.7 however patient has been afebrile and her wbc was elevated upon prior admission as well 4) Hypokalemia: Resolved - K was 3.7 - Will cont to monitor 5) Hx Parkinson's and Dementia - Cont Memantine 6) Hx HLD - Cont Lipitor PPx: GI ppx: ptx DVT ppx: scds Case was discussed and reviewed with Attending Physician, Dr. Mao Valera, PGY-1 <Yenny Cavanaugh - Last Filed: 07/22/18 14:10> Objective - Vital Signs/Intake and Output Vital Signs (last 24 hours): Temp Pulse Resp BP Pulse Ox 97.8 F 100 H 20 115/59 L 98 07/22/18 08:53 07/22/18 08:53 07/22/18 08:53 07/22/18 08:53 07/22/18 08:53 Intake and Output: 07/22/18 07/22/18 06:59 18:59 Intake Total 900 Output Total 650 Balance 250 - Medications Medications: Current Medications Amino Acid Protein (Prostat 15 G Packet) 15 gm GT BID [facility] Last Admin: 07/21/18 18:20 Dose: 15 gm Atorvastatin Calcium (Lipitor) 20 mg GT DAILY [facility] Last Admin: 07/22/18 10:26 Dose: 20 mg Meropenem/Sodium Chloride (Merrem Iv 500 Mg/Ns 50 Ml) 500 mg in 50 mls @ 100 mls/hr IVPB Q12 [facility]; Protocol Stop: 07/27/18 00:46 Last Admin: 07/22/18 10:22 Dose: 100 mls/hr Memantine (Namenda) 5 mg GT BID [facility] Last Admin: 07/22/18 10:21 Dose: 5 mg Pantoprazole Sodium (Protonix Susp) 40 mg PEG 0600 [facility] Zinc Sulfate (Zinc Sulfate 220 Mg Cap) 220 mg GT DAILY [facility] Last Admin: 07/22/18 10:21 Dose: 220 mg - Labs Labs: 07/22/18 07:30 07/22/18 07:30 PT 11.2 SECONDS (9.4-12.5) 07/19/18 20:10 INR 1.01 07/19/18 20:10 APTT 28.6 Seconds (26.9-38.3) 07/19/18 20:10 Attending/Attestation - Attestation I have personally seen and examined this patient.: Yes I have fully participated in the care of the patient.: Yes I have reviewed all pertinent clinical information, including history, physical exam and plan: Yes Notes (Text): 07/22/18 14:06 Medical record note made by the resident after discussion with my direction and input after the patient was personally seen and examined by me. I have reviewed the chart and agree that the record accurately reflects by personal performance of the history, physical exam, data review, and medical decision-making, in the course for the patient. I have also personally directed the plan of care. 88 year old female with PMH of of Parkinson's disease, dementia, hypertension, TIA, s/p PEG and multiple sacral decubitus was recently discharged to SNF with wound vac and IV antibiotics was readmitted with anemia, hemoglobin WAS 4.3 due to severe blood lose from wound vac site, , she is SP 2 units PRBC, hemoglobin is 8.2, we will monitor closely.Surgery is following. Continue IV Meropenem for infected decubitus ulcer. Continue PEG tube feeding.Patient is high risk for aspiration. Prognosis is guarded. 07/22/18 14:09 07/22/18 14:09
[2018-07-21] MEDS: Prostat 15 g packet GT SCH ×2 (10:32→18:20)
[2018-07-21] MEDS: MEROPENEM 500 MG in NS 500 MG/50 ML BAG IVPB SCH ×2 (10:32→22:19)
--- NOTE | 2018-07-21 11:12 | PN ---
DATE: 07/21/2018 SUBJECTIVE: The patient is in bed in 272, bed 1, appears chronically ill, debilitated and week. OBJECTIVE: VITAL SIGNS: Uneventful night with a temperature of 98, blood pressure is 128/60, respiratory rate of 18, and heart rate of 94. HEENT: Unremarkable. NECK: Supple. LUNGS: Have decreased breath sounds. HEART: Normal S1, S2. ABDOMEN: Soft, nontender. LABORATORY EXAMINATION: Reveals the patient's white count is 15,700, hemoglobin of 8. BUN of 59, creatinine of 1.1. Urinalysis is noted. Procalcitonin is 0.15. Microbiology reveals the buttocks cultures have Gram-negative parker. The blood cultures are negative and the sacral cultures pending. Another buttock culture is pending. MEDICATIONS: The patient is currently on meropenem. ASSESSMENT AND PLAN: This is an 88-year-old female with Parkinson's and dementia and hyperlipidemia, transient ischemic attack, chronic back pain, and skilled nursing patient who is admitted with a hemoglobin of 5 and discharged recently from the hospital with sepsis with urinary tract and secondary to urine as the source and bacteremia, multiple decubitus ulcers at this point and with leukocytosis and was admitted with hypothermia, tachycardia, leukocytosis, and sepsis with Gram-negative parker, buttock cellulitis as the source in face of with a hemoglobin of 4.2, severe anemia acute blood loss anemia. We will continue the meropenem. Overall prognosis is poor, should consider a hospice setting for this 88-year-old female with no quality of life. Davy Casas MD
[2018-07-22 07:57] LABS: HEMOGLOBIN 7.6 g/dL (12.0-16.0); MEAN CELL VOLUME 92.9 fl (80.0-105.0); MEAN CORPUSCULAR HEMOGLOBIN 30.2 pg (25.0-35.0); MEAN CORPUSCULAR HGB CONC 32.5 g/dl (31.0-37.0); MEAN PLATELET VOLUME 8.8 fl (7.0-11.0); RBC 2.52 10^6/uL (3.5-6.1); RED CELL DISTRIBUTION WIDTH 19.3 % (11.5-14.5); WHITE BLOOD COUNT 15.1 10^3/uL (4.5-11.0)
[2018-07-22 08:13] LABS: ALB/GLOB RATIO 0.7 (1.1-1.8); ALBUMIN 2.1 g/dL (3.0-4.8); CALCIUM 7.6 mg/dL (8.4-10.5)
--- NOTE | 2018-07-22 09:51 | CP.PCM.PN ---
Subjective - Date & Time of Evaluation Date of Evaluation: 07/22/18 Time of Evaluation: 09:48 - Subjective Subjective: SUrgery Pt seen. No further bleeding per nursing. Resting comfortably Objective - Vital Signs/Intake and Output Vital Signs (last 24 hours): Temp Pulse Resp BP Pulse Ox 97.8 F 100 H 20 115/59 L 98 07/22/18 08:53 07/22/18 08:53 07/22/18 08:53 07/22/18 08:53 07/22/18 08:53 Intake and Output: 07/22/18 07/22/18 06:59 18:59 Intake Total 900 Output Total 650 Balance 250 - Medications Medications: Current Medications Amino Acid Protein (Prostat 15 G Packet) 15 gm GT BID [facility] Last Admin: 07/21/18 18:20 Dose: 15 gm Atorvastatin Calcium (Lipitor) 20 mg GT DAILY [facility] Last Admin: 07/21/18 10:32 Dose: 20 mg Meropenem/Sodium Chloride (Merrem Iv 500 Mg/Ns 50 Ml) 500 mg in 50 mls @ 100 mls/hr IVPB Q12 [facility]; Protocol Stop: 07/27/18 00:46 Last Admin: 07/21/18 22:19 Dose: 100 mls/hr Memantine (Namenda) 5 mg GT BID [facility] Last Admin: 07/21/18 18:17 Dose: 5 mg Pantoprazole Sodium (Protonix Inj) 40 mg IVP DAILY [facility] Last Admin: 07/21/18 10:32 Dose: 40 mg Zinc Sulfate (Zinc Sulfate 220 Mg Cap) 220 mg GT DAILY [facility] Last Admin: 07/21/18 10:32 Dose: 220 mg - Labs Labs: 07/22/18 07:30 07/22/18 07:30 PT 11.2 SECONDS (9.4-12.5) 07/19/18 20:10 INR 1.01 07/19/18 20:10 APTT 28.6 Seconds (26.9-38.3) 07/19/18 20:10 - Constitutional Appears: No Acute Distress - Head Exam Head Exam: ATRAUMATIC, NORMAL INSPECTION, NORMOCEPHALIC - Eye Exam Eye Exam: EOMI, Normal appearance, PERRL Pupil Exam: NORMAL ACCOMODATION, PERRL - ENT Exam ENT Exam: Mucous Membranes Moist, Normal Exam - Neck Exam Neck Exam: Normal Inspection - Respiratory Exam Respiratory Exam: NORMAL BREATHING PATTERN - Cardiovascular Exam Cardiovascular Exam: REGULAR RHYTHM - GI/Abdominal Exam GI & Abdominal Exam: Soft Additional comments: G tube in place. Tube feed - Extremities Exam Extremities Exam: Normal Inspection - Back Exam Additional comments: Large b/l sacral wounds - Neurological Exam Neurological Exam: Awake - Psychiatric Exam Psychiatric exam: Normal Mood - Skin Skin Exam: Erythema, Warm. absent: Intact Assessment and Plan - Assessment and Plan (Free Text) Assessment: Bleeding sacral ulcer: resolving Acute anemia Hgb Plan: Monitor VS, H/H, bleeding Apply surgiseal, gelform, thrombin or silver nitrate and pressure dressing for hemostasis If conservative management doesn't work, may apply stitch around the bleeding ulcer Wound vac therapy on low suction setting 75mmhg after hemostasis transfuse PRN Will JAMES Norman
[2018-07-22] MEDS: Prostat 15 g packet GT SCH ×2 (10:20→18:02)
[2018-07-22] MEDS: MEROPENEM 500 MG in NS 500 MG/50 ML BAG IVPB SCH ×2 (10:22→22:25)
--- NOTE | 2018-07-22 13:05 | RAD ---
Date of service: 07/22/2018 HISTORY: rule out aspiration pneumonia COMPARISON: Is made with the previous study dated 07/20/2018 FINDINGS: LUNGS: Interval mild worsening of hazy opacities at the mid and lower lungs since the previous exam may represent pulmonary vascular congestion. There is new opacity at the lung bases may represent aspiration or atelectasis. PLEURA: Blunting of the right costophrenic angle. CARDIOVASCULAR: Round atherosclerotic calcification at the aortic knob Normal cardiac size. Possible moderate pulmonary vascular congestion. OSSEOUS STRUCTURES: No significant abnormalities. VISUALIZED UPPER ABDOMEN: Normal. OTHER FINDINGS: None IMPRESSION: Possible new or worsening pulmonary vascular congestion. New blunting of the right costophrenic angle suspicious for small pleural effusion.
--- NOTE | 2018-07-22 16:50 | CP.PCM.PN ---
Subjective - Date & Time of Evaluation Date of Evaluation: 07/22/18 Time of Evaluation: 16:40 - Subjective Subjective: Iman Valera, PGY-1 Medicine Progress Note for Dr. Cavanaugh; Pt was seen and examined this AM at bedside. Per nursing pt had no acute events overnight. Pt does not speak and therefore unable to assess relevant ROS on the pt. Pt continues to respond to sternal rub and verbal stimuli. Farrar and G tube in place and functioning. Objective - Vital Signs/Intake and Output Vital Signs (last 24 hours): Temp Pulse Resp BP Pulse Ox 97.4 F L 100 H 20 126/68 98 07/22/18 16:35 07/22/18 16:35 07/22/18 16:35 07/22/18 16:35 07/22/18 08:53 Intake and Output: 07/22/18 07/22/18 06:59 18:59 Intake Total 900 20 Output Total 650 Balance 250 20 - Medications Medications: Current Medications Amino Acid Protein (Prostat 15 G Packet) 15 gm GT BID [facility] Last Admin: 07/22/18 10:20 Dose: Not Given Atorvastatin Calcium (Lipitor) 20 mg GT DAILY [facility] Last Admin: 07/22/18 10:26 Dose: 20 mg Meropenem/Sodium Chloride (Merrem Iv 500 Mg/Ns 50 Ml) 500 mg in 50 mls @ 100 mls/hr IVPB Q12 [facility]; Protocol Stop: 07/27/18 00:46 Last Admin: 07/22/18 10:22 Dose: 100 mls/hr Memantine (Namenda) 5 mg GT BID [facility] Last Admin: 07/22/18 10:21 Dose: 5 mg Pantoprazole Sodium (Protonix Susp) 40 mg PEG 0600 [facility] Zinc Sulfate (Zinc Sulfate 220 Mg Cap) 220 mg GT DAILY [facility] Last Admin: 07/22/18 10:21 Dose: 220 mg - Labs Labs: 07/22/18 07:30 07/22/18 07:30 PT 11.2 SECONDS (9.4-12.5) 07/19/18 20:10 INR 1.01 07/19/18 20:10 APTT 28.6 Seconds (26.9-38.3) 07/19/18 20:10 - Constitutional Appears: Non-toxic, No Acute Distress - Head Exam Head Exam: ATRAUMATIC, NORMOCEPHALIC - Eye Exam Eye Exam: EOMI, Normal appearance, PERRL - Respiratory Exam Respiratory Exam: Clear to Ausculation Bilateral. absent: Accessory Muscle Use, Rales, Rhonchi, Wheezes, Respiratory Distress - Cardiovascular Exam Cardiovascular Exam: RRR, +S1, +S2. absent: Gallop, Rubs - GI/Abdominal Exam GI & Abdominal Exam: Soft, Normal Bowel Sounds. absent: Rigid, Tenderness Additional comments: G tube in place - Extremities Exam Extremities Exam: Pedal Edema (trace edema b/l) - Back Exam Back Exam: NORMAL INSPECTION. absent: CVA tenderness (L), CVA tenderness (R) - Neurological Exam Additional comments: responds to sternal rub - Psychiatric Exam Additional comments: Pt responds to sternal rub - Skin Additional comments: Sacral stage 4 decub ulcer Assessment and Plan - Assessment and Plan (Free Text) Assessment: Pt is a 88 yo F with pmhx of Parkinson's disease, Unspecified dementia, HTN, HLD, TIA, chronic back pain, and multiple sacral decubitus ulcers who presented to the ED from alf facility for anemia. Pt was recently discharged from [facility] on IV antibiotics for Sepsis 2/2 bacteremia, stage 4 sacral ulcer, and UTI. She had a recent sacral debridement and PEG tube replacement. Surgery and ID is on board. Pt Hgb noted to drop from 8.2 to 7.6 and pt is transfused 1u PRBC. Plan: 1) Acute Anemia 2/2 Stage 4 Sacral Decubitus Ulcer s/p 3 total transfusions pRBCs (last 07/22) - Hgb this AM dropped to 7.6 from 8.2 - Pt transfused 1u PRBCs - Cont merrem IV antibiotics as patient was supposed to receive a total of 4 weeks IV antibiotics - Vanc d/shana per ID - ID is on consult. Follow up recommendations - Surgery is on consult. Recs appreciated: Wound vac monday - Low iron level and TIBC suggestive of anemia of chronic disease - Wound cx: Gram (-) Rods: Proteus Mirabilis - Blood cx: Cont to be (-) @ 48 hr - Procal: low .15 2) Dysphagia with PEG tube: - Please keep HOB elevated to 45 degrees to reduce aspiration risk - restarted on tube feeds - Cont protonix 40mg IVP - discontinued IVF as patient is getting tube feeds - PEG tube was replaced on previous admission by Surgical team - Aspiration precautions 3) UTI: - Cont with Merrem - UCx: (-) - WBC is 15.7 however patient has been afebrile and her wbc was elevated upon prior admission as well 4) Hypokalemia: Resolved - Will cont to monitor 5) Hx Parkinson's and Dementia - Cont Memantine 6) Hx HLD - Cont Lipitor PPx: GI ppx: ptx DVT ppx: scds Case was discussed and reviewed with Attending Physician, Dr. Mao Valera, PGY-1
--- NOTE | 2018-07-22 17:53 | PN ---
DATE: 07/22/2018 SUBJECTIVE: The patient is in bed in no acute distress, was seen earlier today. PHYSICAL EXAMINATION: VITAL SIGNS: On exam, temperature is 97, blood pressure is 115/50, respiratory rate of 16. HEENT: Unremarkable. NECK: Supple. CARDIOPULMONARY: Normal S1 and S2. LUNGS: Have decreased breath sounds. ABDOMEN: Soft. LABORATORY DATA: Reveals a white count of 15,000, hemoglobin of 7, BUN of 63, creatinine of 1.1. Procalcitonin is 0.15 and microbiology reveals the patient's blood cultures are negative and buttocks cultures are noted. Review of orders, the patient is on meropenem. ASSESSMENT AND PLAN: This is an 88-year-old female with Parkinson's dementia, hyperlipidemia, transient ischemic attack, chronic back pain, retirement patient admitted with hemoglobin of 4 and discharged recently from the hospital with sepsis, urinary tract infection as the source and urine as the source of bacteremia, multiple decubitus ulcer. The patient admitted with hypothermia, tachycardia, leukocytosis with sepsis with a gram-negative parker, buttock cellulitis, on meropenem. Overall quality of life is quite poor. Davy Casas MD
[2018-07-23] MEDS: Pantoprazole 40 mg Susp UD PEG SCH (06:01)
[2018-07-23 07:21] LABS: HEMOGLOBIN 9.5 g/dL (12.0-16.0); MEAN CELL VOLUME 91.5 fl (80.0-105.0); MEAN CORPUSCULAR HEMOGLOBIN 29.8 pg (25.0-35.0); MEAN CORPUSCULAR HGB CONC 32.5 g/dl (31.0-37.0); MEAN PLATELET VOLUME 8.9 fl (7.0-11.0); RBC 3.19 10^6/uL (3.5-6.1); RED CELL DISTRIBUTION WIDTH 18.2 % (11.5-14.5); WHITE BLOOD COUNT 13.4 10^3/uL (4.5-11.0)
--- NOTE | 2018-07-23 07:36 | CP.PCM.PN ---
Subjective - Date & Time of Evaluation Date of Evaluation: 07/23/18 Time of Evaluation: 07:35 - Subjective Subjective: Surgery progress note, Dr. Norman Patient seen and examines at bedside. No acute event overnight. Patient is in NAD. Wound vac placed on sacral area today. Objective - Vital Signs/Intake and Output Vital Signs (last 24 hours): Temp Pulse Resp BP Pulse Ox 98.3 F 91 H 20 130/67 94 L 07/22/18 21:52 07/22/18 21:52 07/22/18 21:52 07/22/18 21:52 07/22/18 21:52 Intake and Output: 07/23/18 07/23/18 06:59 18:59 Intake Total 300 Output Total 600 Balance -300 - Medications Medications: Current Medications Amino Acid Protein (Prostat 15 G Packet) 15 gm GT BID [facility] Last Admin: 07/22/18 18:02 Dose: Not Given Atorvastatin Calcium (Lipitor) 20 mg GT DAILY [facility] Last Admin: 07/22/18 10:26 Dose: 20 mg Meropenem/Sodium Chloride (Merrem Iv 500 Mg/Ns 50 Ml) 500 mg in 50 mls @ 100 mls/hr IVPB Q12 [facility]; Protocol Stop: 07/27/18 00:46 Last Admin: 07/22/18 22:25 Dose: 100 mls/hr Memantine (Namenda) 5 mg GT BID [facility] Last Admin: 07/22/18 18:01 Dose: 5 mg Pantoprazole Sodium (Protonix Susp) 40 mg PEG 0600 [facility] Last Admin: 07/23/18 06:01 Dose: 40 mg Zinc Sulfate (Zinc Sulfate 220 Mg Cap) 220 mg GT DAILY [facility] Last Admin: 07/22/18 10:21 Dose: 220 mg - Labs Labs: 07/23/18 07:00 07/22/18 07:30 PT 11.2 SECONDS (9.4-12.5) 07/19/18 20:10 INR 1.01 07/19/18 20:10 APTT 28.6 Seconds (26.9-38.3) 07/19/18 20:10 - Constitutional Appears: Well, No Acute Distress, Chronically Ill - Eye Exam Eye Exam: EOMI, Normal appearance, PERRL Pupil Exam: NORMAL ACCOMODATION, PERRL - Neck Exam Neck Exam: Normal Inspection - Respiratory Exam Respiratory Exam: Clear to Ausculation Bilateral, NORMAL BREATHING PATTERN - Cardiovascular Exam Cardiovascular Exam: REGULAR RHYTHM, +S1, +S2. absent: Murmur - GI/Abdominal Exam GI & Abdominal Exam: Soft, Normal Bowel Sounds. absent: Hernia, Organomegaly Additional comments: G tube in place. Tube feed - Back Exam Additional comments: Large b/l sacral wounds - Neurological Exam Neurological Exam: Awake - Skin Additional comments: stage 4 sacral ulcers with erythema Assessment and Plan - Assessment and Plan (Free Text) Assessment: Bleeding sacral ulcer Acute anemia Plan: -wound vac therapy on low suction setting 75mmhg applied today. change x3 days -continue air mattress, frequent repositioning -H/H stable continue monitoring -transfuse prn -further recs per attending surgeon Dr. Emerson Huitron, DO
[2018-07-23 07:52] LABS: ALB/GLOB RATIO 0.7 (1.1-1.8); ALBUMIN 2.1 g/dL (3.0-4.8); CALCIUM 7.6 mg/dL (8.4-10.5)
--- NOTE | 2018-07-23 10:34 | CP.PCM.PN ---
<Pierce Ortiz - Last Filed: 07/23/18 10:34> Subjective - Date & Time of Evaluation Date of Evaluation: 07/23/18 Time of Evaluation: 09:00 - Subjective Subjective: Infectious disease progress note: Pt seen and examined at bedside. No acute events overnight. Patient appears more lethargic today. Denies any complaints. 12 Point ROS neg however limited 2/2 lethargic Objective - Vital Signs/Intake and Output Vital Signs (last 24 hours): Temp Pulse Resp BP Pulse Ox 98.4 F 64 18 123/70 99 07/23/18 06:00 07/23/18 06:00 07/23/18 06:00 07/23/18 06:00 07/23/18 06:00 Intake and Output: 07/23/18 07/23/18 06:59 18:59 Intake Total 300 Output Total 600 Balance -300 - Medications Medications: Current Medications Amino Acid Protein (Prostat 15 G Packet) 15 gm GT BID [facility] Last Admin: 07/22/18 18:02 Dose: Not Given Atorvastatin Calcium (Lipitor) 20 mg GT DAILY [facility] Last Admin: 07/22/18 10:26 Dose: 20 mg Meropenem/Sodium Chloride (Merrem Iv 500 Mg/Ns 50 Ml) 500 mg in 50 mls @ 100 mls/hr IVPB Q12 [facility]; Protocol Stop: 07/27/18 00:46 Last Admin: 07/22/18 22:25 Dose: 100 mls/hr Memantine (Namenda) 5 mg GT BID [facility] Last Admin: 07/22/18 18:01 Dose: 5 mg Pantoprazole Sodium (Protonix Susp) 40 mg PEG 0600 [facility] Last Admin: 07/23/18 06:01 Dose: 40 mg Zinc Sulfate (Zinc Sulfate 220 Mg Cap) 220 mg GT DAILY [facility] Last Admin: 07/22/18 10:21 Dose: 220 mg - Labs Labs: 07/23/18 07:00 07/23/18 07:00 PT 11.2 SECONDS (9.4-12.5) 07/19/18 20:10 INR 1.01 07/19/18 20:10 APTT 28.6 Seconds (26.9-38.3) 07/19/18 20:10 - Constitutional Appears: No Acute Distress - Head Exam Head Exam: ATRAUMATIC, NORMOCEPHALIC - Eye Exam Eye Exam: EOMI - ENT Exam ENT Exam: Mucous Membranes Moist - Respiratory Exam Respiratory Exam: Clear to Ausculation Bilateral. absent: Wheezes - Cardiovascular Exam Cardiovascular Exam: RRR, +S1, +S2 - GI/Abdominal Exam GI & Abdominal Exam: Soft. absent: Tenderness - Extremities Exam Extremities Exam: absent: Calf Tenderness, Pedal Edema - Neurological Exam Neurological Exam: Alert, Awake, Oriented x3 - Psychiatric Exam Psychiatric exam: Normal Mood - Skin Skin Exam: Dry, Warm Assessment and Plan - Assessment and Plan (Free Text) Assessment: 88 year old female with a PMHx of Parkinson's Disease, Dementia, HTN, HLD, TIA, chronic back pain, and multiple SDU's, presents from [facility] after boodwork showed hemoglobin of 5. presents with acute anemia with Hb of 4.2 s/p 3 units PRBC. - Continue with Karen to complete 4 weeks of abx - Wound cx shows proteus, acinetobacter, and gram neg parker - F/ blood culture and wound cx - Cont to monitor clinically Case and plan was reviewed and discussed with Dr Francisco. <Milse Francisco - Last Filed: 07/23/18 15:58> Objective - Vital Signs/Intake and Output Vital Signs (last 24 hours): Temp Pulse Resp BP Pulse Ox 98 F 82 20 132/66 99 07/23/18 14:00 07/23/18 14:00 07/23/18 14:00 07/23/18 14:00 07/23/18 14:00 Intake and Output: 07/23/18 07/23/18 06:59 18:59 Intake Total 300 Output Total 600 Balance -300 - Medications Medications: Current Medications Amino Acid Protein (Prostat 15 G Packet) 15 gm GT BID [facility] Last Admin: 07/23/18 11:28 Dose: Not Given Atorvastatin Calcium (Lipitor) 20 mg GT DAILY [facility] Last Admin: 07/23/18 11:14 Dose: 20 mg Meropenem/Sodium Chloride (Merrem Iv 500 Mg/Ns 50 Ml) 500 mg in 50 mls @ 100 mls/hr IVPB Q12 [facility]; Protocol Stop: 07/27/18 00:46 Last Admin: 07/23/18 11:14 Dose: 100 mls/hr Memantine (Namenda) 5 mg GT BID [facility] Last Admin: 07/23/18 11:14 Dose: 5 mg Pantoprazole Sodium (Protonix Susp) 40 mg PEG 0600 [facility] Last Admin: 07/23/18 06:01 Dose: 40 mg Zinc Sulfate (Zinc Sulfate 220 Mg Cap) 220 mg GT DAILY [facility] Last Admin: 07/23/18 11:14 Dose: 220 mg - Labs Labs: 07/23/18 07:00 07/23/18 07:00 PT 11.2 SECONDS (9.4-12.5) 07/19/18 20:10 INR 1.01 07/19/18 20:10 APTT 28.6 Seconds (26.9-38.3) 07/19/18 20:10 Assessment and Plan - Assessment and Plan (Free Text) Assessment: Infectious diseases Attending Physician Attestation Patient seen and examined, discussed with medical writer. I have reviewed the patient's history of present illness, past medical, social, personal and family histories, pertinent physical exam findings, course so far in this hospital admission, pertinent laboratory and imaging results. I agree with the above findings, assessment and plan. In addition, continue Merrem for patient with Peptostrep bacteremia and infected sacral ulcer S/P debridement. Should complete 4 weeks of total antibiotic therapy from first negative blood cx.
[2018-07-23] MEDS: MEROPENEM 500 MG in NS 500 MG/50 ML BAG IVPB SCH ×2 (11:14→21:26)
[2018-07-23] MEDS: Prostat 15 g packet GT SCH (11:28)
--- NOTE | 2018-07-23 13:18 | CP.PCM.PN ---
<Ruben Montero - Last Filed: 07/23/18 14:43> Subjective - Date & Time of Evaluation Date of Evaluation: 07/23/18 Time of Evaluation: 07:40 - Subjective Subjective: Ruben Montero DO, PGY-1 Hospitalist Progress Note for Dr. Nieves Patient was seen and examined at bedside this AM. She is responsive to verbal and painful stimuli and opens eyes spontaneously. She appears tachypneic but is otherwise resting comfortably. Objective - Vital Signs/Intake and Output Vital Signs (last 24 hours): Temp Pulse Resp BP Pulse Ox 98.4 F 64 18 123/70 99 07/23/18 06:00 07/23/18 06:00 07/23/18 06:00 07/23/18 06:00 07/23/18 11:52 Intake and Output: 07/23/18 07/23/18 06:59 18:59 Intake Total 300 Output Total 600 Balance -300 - Medications Medications: Current Medications Amino Acid Protein (Prostat 15 G Packet) 15 gm GT BID [facility] Last Admin: 07/23/18 11:28 Dose: Not Given Atorvastatin Calcium (Lipitor) 20 mg GT DAILY [facility] Last Admin: 07/23/18 11:14 Dose: 20 mg Meropenem/Sodium Chloride (Merrem Iv 500 Mg/Ns 50 Ml) 500 mg in 50 mls @ 100 mls/hr IVPB Q12 [facility]; Protocol Stop: 07/27/18 00:46 Last Admin: 07/23/18 11:14 Dose: 100 mls/hr Memantine (Namenda) 5 mg GT BID [facility] Last Admin: 07/23/18 11:14 Dose: 5 mg Pantoprazole Sodium (Protonix Susp) 40 mg PEG 0600 [facility] Last Admin: 07/23/18 06:01 Dose: 40 mg Zinc Sulfate (Zinc Sulfate 220 Mg Cap) 220 mg GT DAILY [facility] Last Admin: 07/23/18 11:14 Dose: 220 mg - Labs Labs: 07/23/18 07:00 07/23/18 07:00 PT 11.2 SECONDS (9.4-12.5) 07/19/18 20:10 INR 1.01 07/19/18 20:10 APTT 28.6 Seconds (26.9-38.3) 07/19/18 20:10 - Constitutional Appears: Non-toxic, No Acute Distress - Head Exam Head Exam: ATRAUMATIC, NORMOCEPHALIC - Eye Exam Eye Exam: EOMI, Normal appearance, PERRL - ENT Exam ENT Exam: Mucous Membranes Moist - Neck Exam Neck Exam: Full ROM, Normal Inspection - Respiratory Exam Respiratory Exam: Decreased Breath Sounds, Rhonchi (diffuse rhonchi b/l). absent: Accessory Muscle Use, Wheezes, Respiratory Distress, Stridor - Cardiovascular Exam Cardiovascular Exam: REGULAR RHYTHM, RRR, +S1, +S2. absent: Gallop, Rubs, Murmur - GI/Abdominal Exam GI & Abdominal Exam: Soft. absent: Guarding, Tenderness - Extremities Exam Extremities Exam: Normal Inspection. absent: Pedal Edema - Back Exam Back Exam: NORMAL INSPECTION - Neurological Exam Neurological Exam: Alert, Altered, Awake - Skin Skin Exam: Dry, Intact, Warm Assessment and Plan - Assessment and Plan (Free Text) Assessment: 88 yo F with PMH of Parkinson's Disease, HTN, HLD, TIA, and multiple SDU's presented from senior living after routine blood work found Hgb of 5. She was recently discharged from [facility] last week for treatment of sepsis and osteomyelitis. Plan: Acute Anemia 2/2 Stage 4 Sacral Decubitus Ulcer Likely 2/2 acute blood loss on anemia of chronic disease H/H stable at 9.5/29.2 this AM She is s/p transfusion of 3 u PRBCs Continue IV merrem ID consulted, recs appreciated Per surgery, plan is for wound vac placement today Wound cx positive for GNR and proteus Blood cx no growth to date Dysphagia with PEG tube Continue tube feeds Elevate head of bed 45 degrees and other aspiration pxns Cont protonix 40mg IVP Pulmonary Vascular Congestion Rhonchi auscultated b/l Patient tachypneic on exam Last CXR with signs of worsening vascular congestion Will start lasix 20 mg IVP daily Continue to monitor UTI Pyuria and moderate leukocyte esterase on admission However, urine cx negative to date Continue Merrem ID following, recs appreciated Hypokalemia Replaced Will continue to monitor Hx Parkinson's and Dementia Continue Memantine Hx HLD Continue Lipitor DVT/GI PPX: SCDs/protonix Full Code Tube feeds, otherwise NPO with aspiration pxns Monitor on med/surg Patient seen, examined, and plan discussed with my attending Dr. Ezequiel Montero, [place].O. IM Resident PGY-1 Pager: [phone] <Artemio Nieves - Last Filed: 07/23/18 15:03> Objective - Vital Signs/Intake and Output Vital Signs (last 24 hours): Temp Pulse Resp BP Pulse Ox 98 F 82 20 132/66 99 07/23/18 14:00 07/23/18 14:00 07/23/18 14:00 07/23/18 14:00 07/23/18 14:00 Intake and Output: 07/23/18 07/23/18 06:59 18:59 Intake Total 300 Output Total 600 Balance -300 - Medications Medications: Current Medications Amino Acid Protein (Prostat 15 G Packet) 15 gm GT BID [facility] Last Admin: 07/23/18 11:28 Dose: Not Given Atorvastatin Calcium (Lipitor) 20 mg GT DAILY [facility] Last Admin: 07/23/18 11:14 Dose: 20 mg Meropenem/Sodium Chloride (Merrem Iv 500 Mg/Ns 50 Ml) 500 mg in 50 mls @ 100 mls/hr IVPB Q12 [facility]; Protocol Stop: 07/27/18 00:46 Last Admin: 07/23/18 11:14 Dose: 100 mls/hr Memantine (Namenda) 5 mg GT BID [facility] Last Admin: 07/23/18 11:14 Dose: 5 mg Pantoprazole Sodium (Protonix Susp) 40 mg PEG 0600 [facility] Last Admin: 07/23/18 06:01 Dose: 40 mg Zinc Sulfate (Zinc Sulfate 220 Mg Cap) 220 mg GT DAILY [facility] Last Admin: 07/23/18 11:14 Dose: 220 mg - Labs Labs: 07/23/18 07:00 07/23/18 07:00 PT 11.2 SECONDS (9.4-12.5) 07/19/18 20:10 INR 1.01 07/19/18 20:10 APTT 28.6 Seconds (26.9-38.3) 07/19/18 20:10 Attending/Attestation - Attestation I have personally seen and examined this patient.: Yes I have fully participated in the care of the patient.: Yes I have reviewed all pertinent clinical information, including history, physical exam and plan: Yes Notes (Text): 07/23/18 14:59 88 year old female with past medical history of Parkinson's disease, dementia, hypertension, TIA, s/p PEG, and multiple sacral decubiti s/p recent debridement and wound vac placement who presented from SNF with acute anemia, likely secondary to severe blood loss from wound vac site. Hemoglobin has improved after prbc transfusions. Surgery is following for possible wound vac. Continue with iv antibiotics as per ID. This morning patient sounds congested. CXR yesterday showed vascular congestion. Will start on iv lasix and re-assess. Overall prognosis is guarded. Artemio Nieves MD Hospitalist.
[2018-07-24] MEDS: Pantoprazole 40 mg Susp UD PEG SCH (05:34)
[2018-07-24 07:18] LABS: HEMOGLOBIN 9.4 g/dL (12.0-16.0); MEAN CELL VOLUME 92.9 fl (80.0-105.0); MEAN CORPUSCULAR HEMOGLOBIN 29.2 pg (25.0-35.0); MEAN CORPUSCULAR HGB CONC 31.4 g/dl (31.0-37.0); MEAN PLATELET VOLUME 9.2 fl (7.0-11.0); RBC 3.22 10^6/uL (3.5-6.1); RED CELL DISTRIBUTION WIDTH 18.4 % (11.5-14.5); WHITE BLOOD COUNT 13.6 10^3/uL (4.5-11.0)
[2018-07-24 07:29] LABS: ALB/GLOB RATIO 0.6 (1.1-1.8); ALBUMIN 2.3 g/dL (3.0-4.8); CALCIUM 7.7 mg/dL (8.4-10.5)
--- NOTE | 2018-07-24 08:35 | CP.PCM.PN ---
<Pierce Ortiz - Last Filed: 07/24/18 12:18> Subjective - Date & Time of Evaluation Date of Evaluation: 07/24/18 Time of Evaluation: 07:50 - Subjective Subjective: Infectious disease progress note: Pt seen and examined at bedside. No acute events overnight. Less lethargic today. No complaints. 12 Point ROS neg other than stated above Objective - Vital Signs/Intake and Output Vital Signs (last 24 hours): Temp Pulse Resp BP Pulse Ox 98 F 82 20 128/68 99 07/23/18 14:00 07/23/18 14:00 07/23/18 14:00 07/23/18 18:13 07/23/18 14:00 Intake and Output: 07/24/18 07/24/18 06:59 18:59 Output Total 500 Balance -500 - Medications Medications: Current Medications Amino Acid Protein (Prostat 15 G Packet) 15 gm GT BID [facility] Last Admin: 07/23/18 11:28 Dose: Not Given Atorvastatin Calcium (Lipitor) 20 mg GT DAILY [facility] Last Admin: 07/23/18 11:14 Dose: 20 mg Furosemide (Lasix) 20 mg IVP DAILY [facility] Meropenem/Sodium Chloride (Merrem Iv 500 Mg/Ns 50 Ml) 500 mg in 50 mls @ 100 mls/hr IVPB Q12 [facility]; Protocol Stop: 07/27/18 00:46 Last Admin: 07/23/18 21:26 Dose: 100 mls/hr Memantine (Namenda) 5 mg GT BID [facility] Last Admin: 07/23/18 18:13 Dose: 5 mg Pantoprazole Sodium (Protonix Susp) 40 mg PEG 0600 [facility] Last Admin: 07/24/18 05:34 Dose: 40 mg Zinc Sulfate (Zinc Sulfate 220 Mg Cap) 220 mg GT DAILY [facility] Last Admin: 07/23/18 11:14 Dose: 220 mg - Labs Labs: 07/24/18 06:40 07/24/18 06:40 PT 11.2 SECONDS (9.4-12.5) 07/19/18 20:10 INR 1.01 07/19/18 20:10 APTT 28.6 Seconds (26.9-38.3) 07/19/18 20:10 - Constitutional Appears: No Acute Distress - Head Exam Head Exam: ATRAUMATIC, NORMOCEPHALIC - Eye Exam Eye Exam: EOMI - ENT Exam ENT Exam: Mucous Membranes Moist - Cardiovascular Exam Cardiovascular Exam: RRR, +S1, +S2 - GI/Abdominal Exam GI & Abdominal Exam: Soft Additional comments: no tender non distended - Extremities Exam Extremities Exam: absent: Calf Tenderness, Pedal Edema - Neurological Exam Neurological Exam: Awake, Oriented x3 - Psychiatric Exam Psychiatric exam: Normal Mood - Skin Skin Exam: Dry, Warm Assessment and Plan - Assessment and Plan (Free Text) Assessment: 88 year old female with a PMHx of Parkinson's Disease, Dementia, HTN, HLD, TIA, chronic back pain, and multiple SDU's, presents from assisted after boodwork showed hemoglobin of 5. presents with acute anemia with Hb of 4.2 s/p 3 units PRBC. - Karen to complete 4 weeks of abx - Wound cx shows proteus, acinetobacter, and gram neg parker - Cont to monitor clinically Case and plan was reviewed and discussed with Dr Francisco. <Miles Francisco - Last Filed: 07/24/18 13:32> Objective - Vital Signs/Intake and Output Vital Signs (last 24 hours): Temp Pulse Resp BP Pulse Ox 98.4 F 94 H 20 142/80 100 07/24/18 06:00 07/24/18 06:00 07/24/18 06:00 07/24/18 10:25 07/24/18 06:00 Intake and Output: 07/24/18 07/24/18 06:59 18:59 Output Total 500 1100 Balance -500 -1100 - Medications Medications: Current Medications Atorvastatin Calcium (Lipitor) 20 mg GT DAILY [facility] Last Admin: 07/24/18 10:26 Dose: 20 mg Furosemide (Lasix) 20 mg IVP DAILY [facility] Last Admin: 07/24/18 10:25 Dose: 20 mg Meropenem/Sodium Chloride (Merrem Iv 500 Mg/Ns 50 Ml) 500 mg in 50 mls @ 100 mls/hr IVPB Q12 [facility]; Protocol Stop: 07/27/18 00:46 Last Admin: 07/24/18 10:21 Dose: 100 mls/hr Memantine (Namenda) 5 mg GT BID [facility] Last Admin: 07/24/18 10:26 Dose: 5 mg Pantoprazole Sodium (Protonix Susp) 40 mg PEG 0600 [facility] Last Admin: 07/24/18 05:34 Dose: 40 mg Zinc Sulfate (Zinc Sulfate 220 Mg Cap) 220 mg GT DAILY [facility] Last Admin: 07/24/18 10:26 Dose: 220 mg - Labs Labs: 07/24/18 06:40 07/24/18 06:40 PT 11.2 SECONDS (9.4-12.5) 07/19/18 20:10 INR 1.01 07/19/18 20:10 APTT 28.6 Seconds (26.9-38.3) 07/19/18 20:10 Assessment and Plan - Assessment and Plan (Free Text) Assessment: Infectious diseases Attending Physician Attestation Patient seen and examined, discussed with certified medical coding specialist. I have reviewed the patient's history of present illness, past medical, social, personal and family histories, pertinent physical exam findings, course so far in this hospital admission, pertinent laboratory and imaging results. I agree with the above findings, assessment and plan. In addition, continue Merrem for patient with Peptostrep bacteremia with associated infected sacral decubitus ulcer - should finish 4 weeks of antibiotics.
[2018-07-24] MEDS ORDERED: Magnesium Sulfate 2 gm/50 ml 2 GM/50 ML BAG IVPB ONE (09:06)
[2018-07-24] MEDS: MEROPENEM 500 MG in NS 500 MG/50 ML BAG IVPB SCH ×2 (10:21→22:08)
[2018-07-24] MEDS: Prostat 15 g packet GT SCH (10:27)
--- NOTE | 2018-07-24 11:01 | RAD ---
Date of service: 07/24/2018 HISTORY: f/u congestion COMPARISON: 07/22/2018 FINDINGS: LUNGS: Vague opacity mid left lung possibly dependent pleural fluid. Decreased from prior. PLEURA: Small left pleural effusion. No evidence of right pleural effusion. No pneumothorax. Left apex obscured by patient's mandible. CARDIOVASCULAR: There is atherosclerotic calcification of the aortic arch. Normal cardiac size. No pulmonary vascular congestion. OSSEOUS STRUCTURES: No significant abnormalities. VISUALIZED UPPER ABDOMEN: Normal. OTHER FINDINGS: None. IMPRESSION: Small left pleural effusion. No definite infiltrate.
--- NOTE | 2018-07-24 13:29 | CP.PCM.PN ---
<Ruben Montero - Last Filed: 07/24/18 15:32> Subjective - Date & Time of Evaluation Date of Evaluation: 07/24/18 Time of Evaluation: 07:30 - Subjective Subjective: Ruben Montero DO, PGY-1 Hospitalist Progress Note for Dr. Nieves Patient was seen and examined at bedside this AM. She appears less tachypneic today and is resting comfortably. She continues to respond to vocal and tactile stimuli but is otherwise non-verbal. RN reports no acute events overnight and breathing has improved since lasix administration. Objective - Vital Signs/Intake and Output Vital Signs (last 24 hours): Temp Pulse Resp BP Pulse Ox 98.4 F 94 H 20 142/80 100 07/24/18 06:00 07/24/18 06:00 07/24/18 06:00 07/24/18 10:25 07/24/18 06:00 Intake and Output: 07/24/18 07/24/18 06:59 18:59 Output Total 500 1100 Balance -500 -1100 - Medications Medications: Current Medications Amino Acid Protein (Prostat 15 G Packet) 15 gm GT BID [facility] Last Admin: 07/24/18 10:27 Dose: 15 gm Atorvastatin Calcium (Lipitor) 20 mg GT DAILY [facility] Last Admin: 07/24/18 10:26 Dose: 20 mg Furosemide (Lasix) 20 mg IVP DAILY [facility] Last Admin: 07/24/18 10:25 Dose: 20 mg Meropenem/Sodium Chloride (Merrem Iv 500 Mg/Ns 50 Ml) 500 mg in 50 mls @ 100 mls/hr IVPB Q12 [facility]; Protocol Stop: 07/27/18 00:46 Last Admin: 07/24/18 10:21 Dose: 100 mls/hr Memantine (Namenda) 5 mg GT BID [facility] Last Admin: 07/24/18 10:26 Dose: 5 mg Pantoprazole Sodium (Protonix Susp) 40 mg PEG 0600 [facility] Last Admin: 07/24/18 05:34 Dose: 40 mg Zinc Sulfate (Zinc Sulfate 220 Mg Cap) 220 mg GT DAILY [facility] Last Admin: 07/24/18 10:26 Dose: 220 mg - Labs Labs: 07/24/18 06:40 07/24/18 06:40 PT 11.2 SECONDS (9.4-12.5) 01/24/19 20:10 INR 1.01 07/19/18 20:10 APTT 28.6 Seconds (26.9-38.3) 07/19/18 20:10 - Constitutional Appears: Non-toxic, Cachectic, Chronically Ill - Head Exam Head Exam: ATRAUMATIC, NORMOCEPHALIC - Eye Exam Eye Exam: EOMI, Normal appearance, PERRL - ENT Exam ENT Exam: Mucous Membranes Dry - Neck Exam Neck Exam: Full ROM, Normal Inspection - Respiratory Exam Respiratory Exam: Rhonchi (faint rhonchi b/l improved from prior exams). absent: Accessory Muscle Use, Rales, Wheezes, Respiratory Distress - Cardiovascular Exam Cardiovascular Exam: REGULAR RHYTHM, RRR, +S1, +S2. absent: Gallop, Rubs, Murmur - GI/Abdominal Exam GI & Abdominal Exam: Soft, Normal Bowel Sounds - Extremities Exam Extremities Exam: Normal Inspection. absent: Pedal Edema - Back Exam Back Exam: NORMAL INSPECTION - Neurological Exam Neurological Exam: Alert - Skin Skin Exam: Dry, Intact, Warm Assessment and Plan - Assessment and Plan (Free Text) Assessment: 88 yo F with PMH of Parkinson's Disease, HTN, HLD, TIA, and multiple SD[facility] blood work found Hgb of 5. She was recently discharged from [facility] last week for treatment of sepsis and osteomyelitis. Plan: Acute Anemia 2/2 Stage 4 Sacral Decubitus Ulcer Likely 2/2 acute blood loss from bleeding sacral wounds on anemia of chronic disease H/H continues to be stable at 10.5/34 this AM Continue IV merrem for four weeks for sacral ulcers per ID recs Wound vac placed yesterday Continue to f/u additional surgery recs Wound cx positive for GNR and proteus Blood cx no now x 4 days Dysphagia with PEG tube Continue tube feeds, patient appears to be tolerating well Continue aspiration pxns including elevate head of bed 45 degrees Cont protonix 40mg IVP daily Pulmonary Vascular Congestion Rhonchi improved from prior exams Tachypnea improved, patient now appears to be resting comfortably Repeat CXR appears unchanged from prior Continue lasix 20 mg IVP daily Continue to monitor UTI Pyuria and moderate leukocyte esterase on admission Urine cx negative to date Continue Merrem ID following, recs appreciated Hypokalemia Replaced Will continue to monitor Hx Parkinson's and Dementia Continue Memantine Hx HLD Continue Lipitor DVT/GI PPX: SCDs/protonix Full Code Tube feeds, otherwise NPO with aspiration pxns Monitor on med/surg Patient seen, examined, and plan discussed with my attending Dr. Ezequiel Montero, [place] Marie[place]. IM Resident PGY-1 Pager: [phone] <Artemio Nieves - Last Filed: 07/24/18 16:30> Objective - Vital Signs/Intake and Output Vital Signs (last 24 hours): Temp Pulse Resp BP Pulse Ox 98.4 F 94 H 20 142/80 100 07/24/18 06:00 07/24/18 06:00 07/24/18 06:00 07/24/18 10:25 07/24/18 06:00 Intake and Output: 07/24/18 07/24/18 06:59 18:59 Output Total 500 1100 Balance -500 -1100 - Medications Medications: Current Medications Atorvastatin Calcium (Lipitor) 20 mg GT DAILY [facility] Last Admin: 07/24/18 10:26 Dose: 20 mg Furosemide (Lasix) 20 mg IVP DAILY [facility] Last Admin: 07/24/18 10:25 Dose: 20 mg Meropenem/Sodium Chloride (Merrem Iv 500 Mg/Ns 50 Ml) 500 mg in 50 mls @ 100 mls/hr IVPB Q12 [facility]; Protocol Stop: 07/27/18 00:46 Last Admin: 07/24/18 10:21 Dose: 100 mls/hr Memantine (Namenda) 5 mg GT BID [facility] Last Admin: 07/24/18 10:26 Dose: 5 mg Pantoprazole Sodium (Protonix Susp) 40 mg PEG 0600 [facility] Last Admin: 07/24/18 05:34 Dose: 40 mg Zinc Sulfate (Zinc Sulfate 220 Mg Cap) 220 mg GT DAILY [facility] Last Admin: 07/24/18 10:26 Dose: 220 mg - Labs Labs: 07/24/18 06:40 07/24/18 06:40 PT 11.2 SECONDS (9.4-12.5) 07/19/18 20:10 INR 1.01 07/19/18 20:10 APTT 28.6 Seconds (26.9-38.3) 07/19/18 20:10 Attending/Attestation - Attestation I have personally seen and examined this patient.: Yes I have fully participated in the care of the patient.: Yes I have reviewed all pertinent clinical information, including history, physical exam and plan: Yes Notes (Text): 07/24/18 16:28 88 year old female with past medical history of Parkinson's disease, dementia, hypertension, TIA, s/p PEG, and multiple sacral decubiti s/p recent debridement and wound vac placement who presented from SNF with acute anemia, likely secondary to severe blood loss from wound vac site. Hemoglobin has improved after prbc transfusions. Surgery is following and patient is s/p wound vac placement yesterday. Continue with iv antibiotics as per ID. CXR today reviewed showing improvement of congestion seen prior; will switch lasix to po. Will replete and repeat lytes (magnesium). Overall prognosis is guarded. Artemio Nieves MD Hospitalist.
[2018-07-25] MEDS: Pantoprazole 40 mg Susp UD PEG SCH (05:42)
[2018-07-25 07:38] LABS: BASO # 0.04 K/mm3 (0.0-2.0); BASO % 0.3 % (0.0-3.0); EOS # 0.5 (0.0-0.7); EOS % 3.6 % (1.5-5.0); HEMOGLOBIN 9.4 g/dL (12.0-16.0); LYMPH # 2.7 (1.2-3.4); LYMPH % 21.2 % (22.0-35.0); MEAN CELL VOLUME 93.6 fl (80.0-105.0); MEAN CORPUSCULAR HEMOGLOBIN 29.9 pg (25.0-35.0); MEAN PLATELET VOLUME 9.1 fl (7.0-11.0); MONO # 0.6 (0.1-0.6); MONO % 4.7 % (1.0-6.0); RBC 3.14 10^6/uL (3.5-6.1); RED CELL DISTRIBUTION WIDTH 18.4 % (11.5-14.5); WHITE BLOOD COUNT 12.8 10^3/uL (4.5-11.0)
[2018-07-25 08:04] LABS: ALB/GLOB RATIO 0.7 (1.1-1.8); ALBUMIN 2.2 g/dL (3.0-4.8); CALCIUM 7.9 mg/dL (8.4-10.5)
[2018-07-25] MEDS ORDERED: Potassium Chloride 40 mEq/30 ml LIQ UD PO ONE (10:19)
--- NOTE | 2018-07-25 10:41 | CP.PCM.PN ---
Subjective - Date & Time of Evaluation Date of Evaluation: 07/25/18 Time of Evaluation: 10:36 - Subjective Subjective: Resident Progress Note for Surgery: Dr. Norman Patient examined at bedside. No acute events overnight. Wound vac changed this morning. Objective - Vital Signs/Intake and Output Vital Signs (last 24 hours): Temp Pulse Resp BP Pulse Ox 97.2 F L 83 19 129/67 97 07/25/18 06:00 07/25/18 06:00 07/25/18 06:00 07/25/18 06:00 07/25/18 06:00 Intake and Output: 07/25/18 07/25/18 06:59 18:59 Intake Total 0 Output Total 1800 Balance -1800 - Medications Medications: Current Medications Atorvastatin Calcium (Lipitor) 20 mg GT DAILY [facility] Last Admin: 07/24/18 10:26 Dose: 20 mg Furosemide (Lasix) 20 mg PEG DAILY [facility] Meropenem/Sodium Chloride (Merrem Iv 500 Mg/Ns 50 Ml) 500 mg in 50 mls @ 100 mls/hr IVPB Q12 [facility]; Protocol Stop: 07/27/18 00:46 Last Admin: 07/24/18 22:08 Dose: 100 mls/hr Memantine (Namenda) 5 mg GT BID [facility] Last Admin: 07/24/18 18:40 Dose: 5 mg Pantoprazole Sodium (Protonix Susp) 40 mg PEG 0600 [facility] Last Admin: 07/25/18 05:42 Dose: 40 mg Zinc Sulfate (Zinc Sulfate 220 Mg Cap) 220 mg GT DAILY [facility] Last Admin: 07/24/18 10:26 Dose: 220 mg - Labs Labs: 07/25/18 07:20 07/25/18 07:20 PT 11.2 SECONDS (9.4-12.5) 07/19/18 20:10 INR 1.01 07/19/18 20:10 APTT 28.6 Seconds (26.9-38.3) 07/19/18 20:10 - Additional Findings Additional findings: - Constitutional Appears: No Acute Distress, Chronically Ill - Eye Exam Eye Exam: EOMI, Normal appearance - Neck Exam Neck Exam: Normal Inspection - Respiratory Exam Respiratory Exam: NORMAL BREATHING PATTERN. absent: Respiratory Distress, Accessory Muscle Use - Cardiovascular Exam Cardiovascular Exam: REGULAR RHYTHM, +S1, +S2. absent: Murmur - GI/Abdominal Exam GI & Abdominal Exam: Soft, Normal Bowel Sounds. absent: Hernia, Organomegaly, Distended, Rigid Additional comments: G tube in place - Back Exam Additional comments: b/l sacral wounds with wound vac intact - Neurological Exam Neurological Exam: Awake - Skin Additional comments: Warm, Dry. Assessment and Plan - Assessment and Plan (Free Text) Assessment: Patient is an 88 year old female with past medical history Parkinson's Disease, dementia, HTN, HLD, TIA, chronic back pain who presented from long term with bleeding sacral ulcer and acute anemia. Plan: - currently hemodynamically stable - wound vac therapy on low suction setting 75 mm Hg - continue air mattress, frequent repositioning - monitor H/H and transfuse PRN - further management per primary team - further recs per Dr. Emerson Navarro PGY-1
--- NOTE | 2018-07-25 10:48 | CP.PCM.PN ---
<Pierce Ortiz - Last Filed: 07/25/18 13:41> Subjective - Date & Time of Evaluation Date of Evaluation: 07/25/18 Time of Evaluation: 07:00 - Subjective Subjective: Infectious disease progress note: Pt seen and examined at bedside. No acute events overnight. Denies any complaints today. No fevers. 12 Point ROS neg other than stated above Objective - Vital Signs/Intake and Output Vital Signs (last 24 hours): Temp Pulse Resp BP Pulse Ox 97.2 F L 83 19 129/67 97 07/25/18 06:00 07/25/18 06:00 07/25/18 06:00 07/25/18 06:00 07/25/18 06:00 Intake and Output: 07/25/18 07/25/18 06:59 18:59 Intake Total 0 Output Total 1800 Balance -1800 - Medications Medications: Current Medications Atorvastatin Calcium (Lipitor) 20 mg GT DAILY [facility] Last Admin: 07/24/18 10:26 Dose: 20 mg Furosemide (Lasix) 20 mg PEG DAILY [facility] Meropenem/Sodium Chloride (Merrem Iv 500 Mg/Ns 50 Ml) 500 mg in 50 mls @ 100 mls/hr IVPB Q12 [facility]; Protocol Stop: 07/27/18 00:46 Last Admin: 07/24/18 22:08 Dose: 100 mls/hr Memantine (Namenda) 5 mg GT BID [facility] Last Admin: 07/24/18 18:40 Dose: 5 mg Pantoprazole Sodium (Protonix Susp) 40 mg PEG 0600 [facility] Last Admin: 07/25/18 05:42 Dose: 40 mg Zinc Sulfate (Zinc Sulfate 220 Mg Cap) 220 mg GT DAILY [facility] Last Admin: 07/24/18 10:26 Dose: 220 mg - Labs Labs: 07/25/18 07:20 07/25/18 07:20 PT 11.2 SECONDS (9.4-12.5) 07/19/18 20:10 INR 1.01 07/19/18 20:10 APTT 28.6 Seconds (26.9-38.3) 07/19/18 20:10 - Constitutional Appears: No Acute Distress - Head Exam Head Exam: ATRAUMATIC, NORMOCEPHALIC - Eye Exam Eye Exam: EOMI - ENT Exam ENT Exam: Mucous Membranes Moist - Respiratory Exam Respiratory Exam: Clear to Ausculation Bilateral. absent: Wheezes - Cardiovascular Exam Cardiovascular Exam: REGULAR RHYTHM, +S1, +S2 - GI/Abdominal Exam GI & Abdominal Exam: Soft. absent: Tenderness - Extremities Exam Extremities Exam: absent: Calf Tenderness, Pedal Edema - Neurological Exam Neurological Exam: Awake - Psychiatric Exam Psychiatric exam: Normal Mood - Skin Skin Exam: Dry, Warm Additional comments: sacral decub - wound vac in place Assessment and Plan - Assessment and Plan (Free Text) Assessment: 88 year old female with a PMHx of Parkinson's Disease, Dementia, HTN, HLD, TIA, chronic back pain, and multiple SDU's, presents from assisted after boodwork showed hemoglobin of 5. presents with acute anemia with Hb of 4.2 s/p 3 units PRBC. - Karen to complete 4 weeks of abx - Wound cx shows proteus, acinetobacter, and citrobacter freundi - F/u surgical consult and recs - wound vac in place - Cont to monitor clinically Case and plan was reviewed and discussed with Dr Francisco. <Miles Francisco - Last Filed: 07/25/18 14:38> Objective - Vital Signs/Intake and Output Vital Signs (last 24 hours): Temp Pulse Resp BP Pulse Ox 97.2 F L 83 19 130/68 97 07/25/18 06:00 07/25/18 06:00 07/25/18 06:00 07/25/18 11:17 07/25/18 06:00 Intake and Output: 07/25/18 07/25/18 06:59 18:59 Intake Total 0 Output Total 1800 Balance -1800 - Medications Medications: Current Medications Atorvastatin Calcium (Lipitor) 20 mg GT DAILY [facility] Last Admin: 07/25/18 11:17 Dose: 20 mg Furosemide (Lasix) 20 mg PEG DAILY [facility] Last Admin: 07/25/18 11:17 Dose: 20 mg Meropenem/Sodium Chloride (Merrem Iv 500 Mg/Ns 50 Ml) 500 mg in 50 mls @ 100 mls/hr IVPB Q12 [facility]; Protocol Stop: 07/27/18 00:46 Last Admin: 07/25/18 11:16 Dose: 100 mls/hr Memantine (Namenda) 5 mg GT BID [facility] Last Admin: 07/25/18 11:17 Dose: 5 mg Pantoprazole Sodium (Protonix Susp) 40 mg PEG 0600 [facility] Last Admin: 07/25/18 05:42 Dose: 40 mg Zinc Sulfate (Zinc Sulfate 220 Mg Cap) 220 mg GT DAILY [facility] Last Admin: 07/25/18 11:16 Dose: 220 mg - Labs Labs: 07/25/18 07:20 07/25/18 07:20 PT 11.2 SECONDS (9.4-12.5) 07/19/18 20:10 INR 1.01 07/19/18 20:10 APTT 28.6 Seconds (26.9-38.3) 07/19/18 20:10 Assessment and Plan - Assessment and Plan (Free Text) Assessment: Infectious diseases Attending Physician Attestation Patient seen and examined, discussed with medical technologist generalist. I have reviewed the patient's history of present illness, past medical, social, personal and family histories, pertinent physical exam findings, course so far in this hospital admission, pertinent laboratory and imaging results. I agree with the above findings, assessment and plan. In addition, continue Merrem for Peptostrep bacteremia with infected sacral decubitus ulcers. New cultures on this admission are superificial cultures and probably colonizers. Overall prognosis is poor.
[2018-07-25] MEDS: MEROPENEM 500 MG in NS 500 MG/50 ML BAG IVPB SCH ×2 (11:16→22:49)
--- NOTE | 2018-07-25 17:26 | CP.PCM.PN ---
<Ruben Montero - Last Filed: 07/25/18 17:44> Subjective - Date & Time of Evaluation Date of Evaluation: 07/25/18 Time of Evaluation: 07:20 - Subjective Subjective: Ruben Montero DO, PGY-1 Hospitalist Progress Note for Dr. Nieves Patient was seen and examined at bedside this AM. RN reports no acute events overnight. Surgery changed wound vac today. Objective - Vital Signs/Intake and Output Vital Signs (last 24 hours): Temp Pulse Resp BP Pulse Ox 97.2 F L 83 19 130/68 97 07/25/18 06:00 07/25/18 06:00 07/25/18 06:00 07/25/18 11:17 07/25/18 06:00 Intake and Output: 07/25/18 07/25/18 06:59 18:59 Intake Total 0 Output Total 1800 800 Balance -1800 -800 - Medications Medications: Current Medications Atorvastatin Calcium (Lipitor) 20 mg GT DAILY [facility] Last Admin: 07/25/18 11:17 Dose: 20 mg Furosemide (Lasix) 20 mg PEG DAILY [facility] Last Admin: 07/25/18 11:17 Dose: 20 mg Meropenem/Sodium Chloride (Merrem Iv 500 Mg/Ns 50 Ml) 500 mg in 50 mls @ 100 mls/hr IVPB Q12 [facility]; Protocol Stop: 07/27/18 00:46 Last Admin: 07/25/18 11:16 Dose: 100 mls/hr Memantine (Namenda) 5 mg GT BID [facility] Last Admin: 07/25/18 11:17 Dose: 5 mg Pantoprazole Sodium (Protonix Susp) 40 mg PEG 0600 [facility] Last Admin: 07/25/18 05:42 Dose: 40 mg Zinc Sulfate (Zinc Sulfate 220 Mg Cap) 220 mg GT DAILY [facility] Last Admin: 07/25/18 11:16 Dose: 220 mg - Labs Labs: 07/25/18 07:20 07/25/18 07:20 PT 11.2 SECONDS (9.4-12.5) 07/19/18 20:10 INR 1.01 07/19/18 20:10 APTT 28.6 Seconds (26.9-38.3) 07/19/18 20:10 - Constitutional Appears: Non-toxic, No Acute Distress - Head Exam Head Exam: ATRAUMATIC, NORMOCEPHALIC - Eye Exam Eye Exam: EOMI, Normal appearance, PERRL - ENT Exam ENT Exam: Mucous Membranes Moist - Neck Exam Neck Exam: Full ROM - Respiratory Exam Respiratory Exam: Clear to Ausculation Bilateral, NORMAL BREATHING PATTERN. absent: Rales, Rhonchi, Wheezes - Cardiovascular Exam Cardiovascular Exam: REGULAR RHYTHM, RRR, +S1, +S2. absent: Gallop, Rubs, Murmur - GI/Abdominal Exam GI & Abdominal Exam: Soft, Normal Bowel Sounds - Extremities Exam Extremities Exam: Normal Inspection. absent: Pedal Edema - Back Exam Additional comments: multiple pressure ulcers covered in dressing, wound vac in place without dr abraham - Neurological Exam Neurological Exam: Awake - Skin Skin Exam: Dry, Warm Assessment and Plan - Assessment and Plan (Free Text) Assessment: 88 yo F with PMH of Parkinson's Disease, HTN, HLD, TIA, and multiple SDU's presented from [facility] after routine blood work found Hgb of 5. She was recently discharged from [facility] last week for treatment of sepsis and osteomyelitis. Plan: Acute Anemia 2/2 Stage 4 Sacral Decubitus Ulcer Likely 2/2 acute blood loss from bleeding sacral wounds on anemia of chronic disease H/H decreased but stable this AM at 9.4/29.4 Continue IV merrem for four weeks for sacral ulcers per ID recs Wound vac changed today per surgery Continue to f/u additional surgery recs Wound cx positive for GNR and proteus Blood cx no now x 5 days Pending authorization for long-term care placement Dysphagia with PEG tube Continue tube feeds, patient appears to be tolerating well Continue aspiration pxns Cont protonix 40mg PEG daily Pulmonary Vascular Congestion Rhonchi improved from prior exams Tachypnea improved, patient now appears to be resting comfortably Repeat CXR is improved from prior Will d/c lasix Continue to monitor with monitoring instructions when patient returns to [facility] or other long-term care facility UTI Pyuria and moderate leukocyte esterase on admission Urine cx negative to date Continue Merrem ID following, recs appreciated Hypokalemia Replaced Will continue to monitor Hx Parkinson's and Dementia Continue Memantine Hx HLD Continue Lipitor DVT/GI PPX: SCDs/protonix Full Code Tube feeds, otherwise NPO with aspiration pxns Monitor on med/surg Patient seen, examined, and plan discussed with my attending Dr. Ezequiel Montero, D.O. IM Resident PGY-1 Pager: [phone] <Artemio Nieves - Last Filed: 07/25/18 18:38> Objective - Vital Signs/Intake and Output Vital Signs (last 24 hours): Temp Pulse Resp BP Pulse Ox 97.2 F L 83 19 130/68 97 07/25/18 06:00 07/25/18 06:00 07/25/18 06:00 07/25/18 11:17 07/25/18 06:00 Intake and Output: 07/25/18 07/25/18 06:59 18:59 Intake Total 0 Output Total 1800 800 Balance -1800 -800 - Medications Medications: Current Medications Atorvastatin Calcium (Lipitor) 20 mg GT DAILY [facility] Last Admin: 07/25/18 11:17 Dose: 20 mg Furosemide (Lasix) 20 mg PEG DAILY [facility] Last Admin: 07/25/18 11:17 Dose: 20 mg Meropenem/Sodium Chloride (Merrem Iv 500 Mg/Ns 50 Ml) 500 mg in 50 mls @ 100 mls/hr IVPB Q12 [facility]; Protocol Stop: 07/27/18 00:46 Last Admin: 07/25/18 11:16 Dose: 100 mls/hr Memantine (Namenda) 5 mg GT BID [facility] Last Admin: 07/25/18 11:17 Dose: 5 mg Pantoprazole Sodium (Protonix Susp) 40 mg PEG 0600 [facility] Last Admin: 07/25/18 05:42 Dose: 40 mg Zinc Sulfate (Zinc Sulfate 220 Mg Cap) 220 mg GT DAILY [facility] Last Admin: 07/25/18 11:16 Dose: 220 mg - Labs Labs: 07/25/18 07:20 07/25/18 07:20 PT 11.2 SECONDS (9.4-12.5) 07/19/18 20:10 INR 1.01 07/19/18 20:10 APTT 28.6 Seconds (26.9-38.3) 07/19/18 20:10 Attending/Attestation - Attestation I have personally seen and examined this patient.: Yes I have fully participated in the care of the patient.: Yes I have reviewed all pertinent clinical information, including history, physical exam and plan: Yes Notes (Text): 07/25/18 18:36 88 year old female with past medical history of Parkinson's disease, dementia, hypertension, TIA, s/p PEG, and multiple sacral decubiti s/p recent debridement and wound vac placement who presented from SNF with acute anemia, likely secondary to severe blood loss from wound vac site. Hemoglobin has improved after prbc transfusions. Surgery is following; wound vac was changed today. Continue with iv antibiotics as per ID. Will replete and repeat lytes (po tassium). hall worker note reviewed; d/c planning to LTACH. Overall prognosis is guarded. Artemio Nieves MD Hospitalist.
--- NOTE | 2018-07-25 17:33 | CP.PCM.DIS ---
Provider - Provider Date of Admission: 07/19/18 22:46 Attending physician: Artemio Nieves MD Consults: 07/20/18 00:25 Physician Consult Routine Comment: Consulting Provider: Miles Francisco Consulting Physician: Miles Francisco Reason for Consult: Stage 4 sacral decubitus ulcer, leukocytosis 07/20/18 00:26 General Surgery Consult Routine Comment: Consulting Provider: Jason Norman Consulting Physician: Jason Norman Reason for Consult: stage 4 decubitus ulcer with bleeding, Hb: 4.2 07/20/18 00:32 Wound Care [Nursing Referral for Wound Care] Routine Comment: Physician Instructions: Reason For Exam: stage 4 sacral decubitus ulcer 07/22/18 09:52 Case Management Referral Routine Comment: Physician Instructions: Reason For Exam: please have home wound vac ready Reason for Referral: [facility] Eval Time Spent in preparation of Discharge (in minutes): 40 Diagnosis - Discharge Diagnosis (1) Acute anemia Status: Acute (2) Sacral decubitus ulcer, stage IV Status: Chronic Hospital Course - Lab Results Lab Results: Micro Results 07/20/18 00:45 Buttock Gram Stain - Final 07/20/18 00:45 Buttock Wound Culture - Final Acinetobacter Baumannii Proteus Mirabilis 07/20/18 09:20 Blood Blood Culture - Final NO GROWTH AFTER 5 DAYS 07/20/18 09:20 Blood Gram Stain - Final TEST NOT PERFORMED 07/20/18 08:45 Blood Blood Culture - Final NO GROWTH AFTER 5 DAYS 07/20/18 08:45 Blood Gram Stain - Final TEST NOT PERFORMED 07/20/18 00:45 Sacral Gram Stain - Final 07/20/18 00:45 Sacral Wound Culture - Final Proteus Mirabilis Citrobacter Freundii 07/20/18 00:45 Buttock Gram Stain - Final 07/20/18 00:45 Buttock Wound Culture - Final Proteus Mirabilis Acinetobacter Baumannii 07/20/18 00:35 Urine,Catheterized Urine Culture - Final No Growth (<1,000 CFU/ML) Most Recent Lab Values WBC 12.8 10^3/uL (4.5-11.0) H 07/25/18 07:20 RBC 3.14 10^6/uL (3.5-6.1) L 07/25/18 07:20 Hgb 9.4 g/dL (12.0-16.0) L 07/25/18 07:20 Hct 29.4 % (36.0-48.0) L 07/25/18 07:20 MCV 93.6 fl (80.0-105.0) 07/25/18 07:20 MCH 29.9 pg (25.0-35.0) 07/25/18 07:20 MCHC 32.0 g/dl (31.0-37.0) 07/25/18 07:20 RDW 18.4 % (11.5-14.5) H 07/25/18 07:20 Plt Count 436 10^3/uL (120.0-450.0) 07/25/18 07:20 MPV 9.1 fl (7.0-11.0) 07/25/18 07:20 Gran % 74.3 % (50.0-68.0) H 07/20/18 08:45 Neut % (Auto) 70.2 % (50.0-68.0) H 07/25/18 07:20 Lymph % (Auto) 21.2 % (22.0-35.0) L 07/25/18 07:20 [place] % (Auto) 4.7 % (1.0-6.0) 07/25/18 07:20 Eos % (Auto) 3.6 % (1.5-5.0) 07/25/18 07:20 Baso % (Auto) 0.3 % (0.0-3.0) 07/25/18 07:20 Gran # 13.84 (1.4-6.5) H 07/20/18 08:45 Lymph # (Auto) 2.7 (1.2-3.4) 07/25/18 07:20 [place] # (Auto) 0.6 (0.1-0.6) 07/25/18 07:20 Eos # (Auto) 0.5 (0.0-0.7) 07/25/18 07:20 Baso # (Auto) 0.04 K/mm3 (0.0-2.0) 07/25/18 07:20 Absolute Neuts (auto) 8.99 (1.4-6.5) H 07/25/18 07:20 ESR 38 mm/hr (0.0-20.0) H 07/20/18 08:45 Retic Count 2.56 % (0.5-1.5) H 07/19/18 19:46 Haptoglobin 165.2 mg/dL (30.0-200.0) 07/20/18 08:45 PT 11.2 SECONDS (9.4-12.5) 07/19/18 20:10 INR 1.01 07/19/18 20:10 APTT 28.6 Seconds (26.9-38.3) 07/19/18 20:10 Sodium 146 mmol/L (132-148) 07/25/18 07:20 Potassium 3.4 mmol/L (3.6-5.0) L 07/25/18 07:20 Chloride 111 mmol/L (98-107) H 07/25/18 07:20 Carbon Dioxide 34 mmol/L (21-33) H 07/25/18 07:20 Anion Gap 4 (10-20) L 07/25/18 07:20 BUN 64 mg/dL (7-21) H 07/25/18 07:20 Creatinine 1.1 mg/dl (0.7-1.2) 07/25/18 07:20 Est GFR ( Amer) 57 07/25/18 07:20 Est GFR (Non-Af Amer) 47 07/25/18 07:20 POC Glucose (mg/dL) 352 mg/dL (65-110) H 07/22/18 06:50 Random Glucose 129 mg/dL (70-110) H 07/25/18 07:20 Calcium 7.9 mg/dL (8.4-10.5) L 07/25/18 07:20 Phosphorus 3.3 mg/dL (2.5-4.5) 07/25/18 07:20 Magnesium 2.1 mg/dL (1.7-2.2) 07/25/18 07:20 Iron 39 ug/dL (45-180) L 07/19/18 20:10 TIBC 123 ug/dL (265-497) L 07/19/18 20:10 % Saturation 32 % (20-55) 07/19/18 20:10 Ferritin 332.0 ng/mL 07/19/18 20:10 Total Bilirubin 0.2 mg/dL (0.2-1.3) 07/25/18 07:20 AST 33 U/L (14-36) 07/25/18 07:20 ALT 23 U/L (7-56) 07/25/18 07:20 Alkaline Phosphatase 83 U/L (38-126) 07/25/18 07:20 Lactate Dehydrogenase 512 U/L (333-699) 07/20/18 08:45 C-Reactive Protein 31.50 mg/L (0.0-9.9) H 07/20/18 08:45 Total Protein 5.6 g/dL (5.8-8.3) L 07/25/18 07:20 Albumin 2.2 g/dL (3.0-4.8) L 07/25/18 07:20 Globulin 3.4 gm/dL 07/25/18 07:20 Albumin/Globulin Ratio 0.7 (1.1-1.8) L 07/25/18 07:20 Vitamin B12 > 1000 pg/mL (239-931) H 07/20/18 08:45 Folate 9.3 ng/mL 07/20/18 08:45 Procalcitonin 0.15 NG/ML (0.19-0.49) L 07/20/18 08:45 Urine Color Yellow (YELLOW) 07/20/18 00:35 Urine Appearance Cloudy (CLEAR) 07/20/18 00:35 Urine pH 6.0 (4.7-8.0) 07/20/18 00:35 Ur Specific [place] 1.020 (1.005-1.035) 07/20/18 00:35 Urine Protein 30 mg/dL (<30 mg/dL) H 07/20/18 00:35 Urine Glucose (UA) Negative mg/dL (NEGATIVE) 07/20/18 00:35 Urine Ketones Negative mg/dL (NEGATIVE) 07/20/18 00:35 Urine Blood Moderate (NEGATIVE) H 07/20/18 00:35 Urine Nitrate Negative (NEGATIVE) 07/20/18 00:35 Urine Bilirubin Negative (NEGATIVE) 07/20/18 00:35 Urine Urobilinogen 0.2 E.U./dL (<1 E.U./dL) 07/20/18 00:35 Ur Leukocyte Esterase Moderate Yoselyn/uL (NEGATIVE) H 07/20/18 00:35 Urine RBC 2 - 5 /hpf (0-2) H 07/20/18 00:35 Urine WBC 5 - 10 /hpf (0-6) H 07/20/18 00:35 Ur Epithelial Cells 1 - 3 /hpf (0-5) 07/20/18 00:35 Amorphous Sediment Moderate /hpf (NONE) 07/20/18 00:35 Urine Bacteria Few /hpf (NONE) 07/20/18 00:35 Blood Type O POSITIVE 07/22/18 12:30 Antibody Screen Negative 07/22/18 12:30 Crossmatch See Detail 07/22/18 12:30 BBK History Checked Patient has bt 07/22/18 12:30 - Hospital Course Hospital Course: Ruben Montero DO, PGY-1 Hospitalist Discharge Summary for Dr. Nieves Ms. Caldwell is an 88 year old female with PMH of Parkinson's Disease, HTN, HLD, TIA, and multiple SDU's presented from half-way after routine blood work found Hgb of 5. She was [place] [facility] [place] of sepsis and osteomyelitis. Acute blood loss anemia from severe SDUs was suspected. She received 3 units of PRBCs while admitted and her H/H subsequently improved to 9.4/29.4 on discharge. She was restarted on tube feedings on 07/20/18 and was found to have some "coffee-ground" staining around the tube feed site. PPI was started. She was subsequently scheduled for and underwent wound vac placement on 07/23/18 per surgery team. She was also noted to be tachypneic on exam at that time and repeat CXR showed b/l congestion. She was started on 20 mg PO lasix and improved. mobile marketing manager discussed discharge planning with son who agreed to long-term care placement. Authorization was received. All questions were answered. Patient seen, examined, and discharge plan discussed with my attending Dr. Ezequiel Montero, Syl. IM Resident PGY-1 Discharge Exam - Head Exam Head Exam: ATRAUMATIC, NORMOCEPHALIC Discharge Plan - Follow Up Plan Condition: GUARDED Disposition: [facility] Instructions: Pressure Sores, Pressure Sores (DC), How to Prevent Pressure Sores Additional Instructions: Patient to continue merropenem as prescribed for four weeks duration. Patient to have wound vac dressing changed by nursing staff every 3 days. Please continue q2h turns, air mattress, other pressure ulcer precautions. Patient did not require blood pressure medicines while in hospital. Please monitor patient's blood pressure and may resume blood home losartan 50 mg daily and amlodipine as needed. Continue with home medications as directed. Please continue to monitor patient's breathing closely. If patient becomes tachypneic, please obtain a repeat chest x-ray to monitor for pulmonary edema. If patient's breathing worsens, becomes febrile, or becomes anemic again, please return her to the nearest ED.
[2018-07-26] MEDS: Pantoprazole 40 mg Susp UD PEG SCH (06:03)
[2018-07-26 07:35] LABS: BASO # 0.02 K/mm3 (0.0-2.0); BASO % 0.2 % (0.0-3.0); EOS # 0.3 (0.0-0.7); EOS % 2.1 % (1.5-5.0); LYMPH # 2.5 (1.2-3.4); LYMPH % 19.3 % (22.0-35.0); MEAN CELL VOLUME 95.7 fl (80.0-105.0); MEAN CORPUSCULAR HGB CONC 31.4 g/dl (31.0-37.0); MEAN PLATELET VOLUME 9.3 fl (7.0-11.0); MONO # 0.7 (0.1-0.6); MONO % 5.5 % (1.0-6.0); RED CELL DISTRIBUTION WIDTH 18.4 % (11.5-14.5); WHITE BLOOD COUNT 12.9 10^3/uL (4.5-11.0)
[2018-07-26 08:01] LABS: ALB/GLOB RATIO 0.7 (1.1-1.8); ALBUMIN 2.2 g/dL (3.0-4.8); CALCIUM 7.9 mg/dL (8.4-10.5)
[2018-07-26 08:43] VITALS: RESP 20
[2018-07-26] MEDS: MEROPENEM 500 MG in NS 500 MG/50 ML BAG IVPB SCH (09:50)
[2018-07-26 15:19] VITALS: BP 125/76; PULSE 94; TEMP 99.8; O2SAT 94
--- NOTE | 2018-07-26 16:14 | CP.PCM.DIS ---
<MonteroRuben prieto - Last Filed: 07/26/18 16:15> Provider - Provider Date of Admission: 07/19/18 22:46 Attending physician: Artemio Nieves MD Consults: 07/20/18 00:25 Physician Consult Routine Comment: Consulting Provider: Miles Francisco Consulting Physician: Miles Francisco Reason for Consult: Stage 4 sacral decubitus ulcer, leukocytosis 07/20/18 00:26 General Surgery Consult Routine Comment: Consulting Provider: Jason Norman Consulting Physician: Jason Norman Reason for Consult: stage 4 decubitus ulcer with bleeding, Hb: 4.2 07/20/18 00:32 Wound Care [Nursing Referral for Wound Care] Routine Comment: Physician Instructions: Reason For Exam: stage 4 sacral decubitus ulcer 07/22/18 09:52 Case Management Referral Routine Comment: Physician Instructions: Reason For Exam: please have home wound vac ready Reason for Referral: [facility] Eval Time Spent in preparation of Discharge (in minutes): 40 Diagnosis - Discharge Diagnosis (1) Acute anemia Status: Acute (2) Sacral decubitus ulcer, stage IV Status: Chronic Hospital Course - Lab Results Lab Results: Micro Results 07/20/18 00:45 Buttock Gram Stain - Final 07/20/18 00:45 Buttock Wound Culture - Final Acinetobacter Baumannii Proteus Mirabilis 07/20/18 09:20 Blood Blood Culture - Final NO GROWTH AFTER 5 DAYS 07/20/18 09:20 Blood Gram Stain - Final TEST NOT PERFORMED 07/20/18 08:45 Blood Blood Culture - Final NO GROWTH AFTER 5 DAYS 07/20/18 08:45 Blood Gram Stain - Final TEST NOT PERFORMED 07/20/18 00:45 Sacral Gram Stain - Final 07/20/18 00:45 Sacral Wound Culture - Final Proteus Mirabilis Citrobacter Freundii 07/20/18 00:45 Buttock Gram Stain - Final 07/20/18 00:45 Buttock Wound Culture - Final Proteus Mirabilis Acinetobacter Baumannii 07/20/18 00:35 Urine,Catheterized Urine Culture - Final No Growth (<1,000 CFU/ML) Most Recent Lab Values WBC 12.9 10^3/uL (4.5-11.0) H 07/26/18 07:15 RBC 3.00 10^6/uL (3.5-6.1) L 07/26/18 07:15 Hgb 9.0 g/dL (12.0-16.0) L 07/26/18 07:15 Hct 28.7 % (36.0-48.0) L 07/26/18 07:15 MCV 95.7 fl (80.0-105.0) 07/26/18 07:15 MCH 30.0 pg (25.0-35.0) 07/26/18 07:15 MCHC 31.4 g/dl (31.0-37.0) 07/26/18 07:15 RDW 18.4 % (11.5-14.5) H 07/26/18 07:15 Plt Count 465 10^3/uL (120.0-450.0) H 07/26/18 07:15 MPV 9.3 fl (7.0-11.0) 07/26/18 07:15 Gran % 74.3 % (50.0-68.0) H 07/20/18 08:45 Neut % (Auto) 72.9 % (50.0-68.0) H 07/26/18 07:15 Lymph % (Auto) 19.3 % (22.0-35.0) L 07/26/18 07:15 Bull[place] % (Auto) 5.5 % (1.0-6.0) 07/26/18 07:15 Eos % (Auto) 2.1 % (1.5-5.0) 07/26/18 07:15 Baso % (Auto) 0.2 % (0.0-3.0) 07/26/18 07:15 Gran # 13.84 (1.4-6.5) H 07/20/18 08:45 Lymph # (Auto) 2.5 (1.2-3.4) 07/26/18 07:15 Bullitt # (Auto) 0.7 (0.1-0.6) H 07/26/18 07:15 Eos # (Auto) 0.3 (0.0-0.7) 07/26/18 07:15 Baso # (Auto) 0.02 K/mm3 (0.0-2.0) 07/26/18 07:15 Absolute Neuts (auto) 9.39 (1.4-6.5) H 07/26/18 07:15 ESR 38 mm/hr (0.0-20.0) H 07/20/18 08:45 Retic Count 2.56 % (0.5-1.5) H 07/19/18 19:46 Haptoglobin 165.2 mg/dL (30.0-200.0) 07/20/18 08:45 PT 11.2 SECONDS (9.4-12.5) 07/19/18 20:10 INR 1.01 07/19/18 20:10 APTT 28.6 Seconds (26.9-38.3) 07/19/18 20:10 Sodium 149 mmol/L (132-148) H 07/26/18 07:15 Potassium 3.7 mmol/L (3.6-5.0) 07/26/18 07:15 Chloride 113 mmol/L (98-107) H 07/26/18 07:15 Carbon Dioxide 35 mmol/L (21-33) H 07/26/18 07:15 Anion Gap 4 (10-20) L 07/26/18 07:15 BUN 78 mg/dL (7-21) H 07/26/18 07:15 Creatinine 1.1 mg/dl (0.7-1.2) 07/26/18 07:15 Est GFR ( Amer) 57 07/26/18 07:15 Est GFR (Non-Af Amer) 47 07/26/18 07:15 POC Glucose (mg/dL) 352 mg/dL (65-110) H 07/22/18 06:50 Random Glucose 160 mg/dL (70-110) H 07/26/18 07:15 Calcium 7.9 mg/dL (8.4-10.5) L 07/26/18 07:15 Phosphorus 3.3 mg/dL (2.5-4.5) 07/25/18 07:20 Magnesium 2.1 mg/dL (1.7-2.2) 07/25/18 07:20 Iron 39 ug/dL (45-180) L 07/19/18 20:10 TIBC 123 ug/dL (265-497) L 07/19/18 20:10 % Saturation 32 % (20-55) 07/19/18 20:10 Ferritin 332.0 ng/mL 07/19/18 20:10 Total Bilirubin 0.2 mg/dL (0.2-1.3) 07/26/18 07:15 AST 31 U/L (14-36) 07/26/18 07:15 ALT 28 U/L (7-56) 07/26/18 07:15 Alkaline Phosphatase 86 U/L (38-126) 07/26/18 07:15 Lactate Dehydrogenase 512 U/L (333-699) 07/20/18 08:45 C-Reactive Protein 31.50 mg/L (0.0-9.9) H 07/20/18 08:45 Total Protein 5.6 g/dL (5.8-8.3) L 07/26/18 07:15 Albumin 2.2 g/dL (3.0-4.8) L 07/26/18 07:15 Globulin 3.4 gm/dL 07/26/18 07:15 Albumin/Globulin Ratio 0.7 (1.1-1.8) L 07/26/18 07:15 Vitamin B12 > 1000 pg/mL (239-931) H 07/20/18 08:45 Folate 9.3 ng/mL 07/20/18 08:45 Procalcitonin 0.15 NG/ML (0.19-0.49) L 07/20/18 08:45 Urine Color Yellow (YELLOW) 07/20/18 00:35 Urine Appearance Cloudy (CLEAR) 07/20/18 00:35 Urine pH 6.0 (4.7-8.0) 07/20/18 00:35 Ur Specific [place] 1.020 (1.005-1.035) 07/20/18 00:35 Urine Protein 30 mg/dL (<30 mg/dL) H 07/20/18 00:35 Urine Glucose (UA) Negative mg/dL (NEGATIVE) 07/20/18 00:35 Urine Ketones Negative mg/dL (NEGATIVE) 07/20/18 00:35 Urine Blood Moderate (NEGATIVE) H 07/20/18 00:35 Urine Nitrate Negative (NEGATIVE) 07/20/18 00:35 Urine Bilirubin Negative (NEGATIVE) 07/20/18 00:35 Urine Urobilinogen 0.2 E.U./dL (<1 E.U./dL) 07/20/18 00:35 Ur Leukocyte Esterase Moderate Yoselyn/uL (NEGATIVE) H 07/20/18 00:35 Urine RBC 2 - 5 /hpf (0-2) H 07/20/18 00:35 Urine WBC 5 - 10 /hpf (0-6) H 07/20/18 00:35 Ur Epithelial Cells 1 - 3 /hpf (0-5) 07/20/18 00:35 Amorphous Sediment Moderate /hpf (NONE) 07/20/18 00:35 Urine Bacteria Few /hpf (NONE) 07/20/18 00:35 Blood Type O POSITIVE 07/22/18 12:30 Antibody Screen Negative 07/22/18 12:30 Crossmatch See Detail 07/22/18 12:30 BBK History Checked Patient has bt 07/22/18 12:30 - Hospital Course Hospital Course: Ruben Montero DO, PGY-1 Hospitalist Discharge Summary for Dr. Nieves Ms. Caldwell is an 88 year old female with PMH of Parkinson's Disease, HTN, HLD, TIA, and multiple SDU's presented from correction after routine blood work found Hgb of 5. She was recently discharged from [facility] last week for treatment of sepsis and osteomyelitis. Acute blood loss anemia from severe SDUs was suspected. She received 3 units of PRBCs while admitted and her H/H subsequently improved to 9.4/29.4 on discharge. She was restarted on tube feedings on 07/20/18 and was found to have some "coffee-ground" staining around the tube feed site. PPI was started. She was subsequently scheduled for and underwent wound vac placement on 07/23/18 per surgery team. She was also noted to be tachypneic on exam at that time and repeat CXR showed b/l congestion. She was started on 20 mg PO lasix and improved. biofuels product manager discussed discharge planning with son who agreed to either halfway care placement or return to [facility]. Authorization for terminal block assembler care was denied but authorization for return to [facility] was obtained. Patient is to be transported at 1900 this evening back to [facility] with instructions to change wound vac every 3 days, weekly labs, and merem for four weeks duration. All questions were answered. Patient seen, examined, and discharge plan discussed with my attending Dr. Ezequiel Montero, Syl. IM Resident PGY-1 Discharge Exam - Head Exam Head Exam: ATRAUMATIC, NORMOCEPHALIC - Eye Exam Eye Exam: EOMI, Normal appearance, PERRL - ENT Exam ENT Exam: Mucous Membranes Moist - Neck Exam Neck exam: Full Rom - Respiratory Exam Respiratory Exam: Clear to PA & Lateral, NORMAL BREATHING PATTERN. absent: Rales, Rhonchi, Wheezes - Cardiovascular Exam Cardiovascular Exam: REGULAR RHYTHM, RRR, +S1, +S2. absent: Gallop, Rubs, Systolic Murmur - GI/Abdominal Exam GI & Abdominal Exam: Normal Bowel Sounds, Soft - Back Exam Additional comments: multiple SDUs, wound vac in place without drainage - Neurological Exam Neurological exam: Alert, Altered Additional comments: at baseline Discharge Plan - Follow Up Plan Condition: GUARDED Disposition: REHAB FACILITY/REHAB UNIT Instructions: Pressure Sores, Pressure Sores (DC), How to Prevent Pressure Sores Additional Instructions: Patient to continue merem as prescribed for four weeks duration. Please obtain weekly CBC, CMP, ESR, and CRP for four weeks while on merem. Patient to have wound vac dressing changed by nursing staff every 3 days. Please continue q2h turns, air mattress, other pressure ulcer precautions. Patient did not require blood pressure medicines while in hospital. Please monitor patient's blood pressure and may resume blood home losartan 50 mg daily and amlodipine as needed. Continue with other home medications as directed. Please continue to monitor patient's breathing closely. If patient becomes tachypneic, please obtain a repeat chest x-ray to monitor for pulmonary edema. Patient may also require free water flushes 10ml by PEG tube every 6 hours. Please do AM BMPs to follow electrolytes. If patient's breathing worsens, becomes febrile, or becomes anemic again, please return her to the nearest ED. <Artemio Nieves - Last Filed: 07/26/18 16:38> Provider - Provider Date of Admission: 07/19/18 22:46 Attending physician: Artemio Nieves MD Consults: 07/20/18 00:25 Physician Consult Routine Comment: Consulting Provider: Miles Francisco Consulting Physician: Miles Francisco Reason for Consult: Stage 4 sacral decubitus ulcer, leukocytosis 07/20/18 00:26 General Surgery Consult Routine Comment: Consulting Provider: Jason Norman Consulting Physician: Jason Norman Reason for Consult: stage 4 decubitus ulcer with bleeding, Hb: 4.2 07/20/18 00:32 Wound Care [Nursing Referral for Wound Care] Routine Comment: Physician Instructions: Reason For Exam: stage 4 sacral decubitus ulcer 07/22/18 09:52 Case Management Referral Routine Comment: Physician Instructions: Reason For Exam: please have home wound vac ready Reason for Referral: [facility] Hospital Course - Lab Results Lab Results: Micro Results 07/20/18 00:45 Buttock Gram Stain - Final 07/20/18 00:45 Buttock Wound Culture - Final Acinetobacter Baumannii Proteus Mirabilis 07/20/18 09:20 Blood Blood Culture - Final NO GROWTH AFTER 5 DAYS 07/20/18 09:20 Blood Gram Stain - Final TEST NOT PERFORMED 07/20/18 08:45 Blood Blood Culture - Final NO GROWTH AFTER 5 DAYS 07/20/18 08:45 Blood Gram Stain - Final TEST NOT PERFORMED 07/20/18 00:45 Sacral Gram Stain - Final 07/20/18 00:45 Sacral Wound Culture - Final Proteus Mirabilis Citrobacter Freundii 07/20/18 00:45 Buttock Gram Stain - Final 07/20/18 00:45 Buttock Wound Culture - Final Proteus Mirabilis Acinetobacter Baumannii 07/20/18 00:35 Urine,Catheterized Urine Culture - Final No Growth (<1,000 CFU/ML) Most Recent Lab Values WBC 12.9 10^3/uL (4.5-11.0) H 07/26/18 07:15 RBC 3.00 10^6/uL (3.5-6.1) L 07/26/18 07:15 Hgb 9.0 g/dL (12.0-16.0) L 07/26/18 07:15 Hct 28.7 % (36.0-48.0) L 07/26/18 07:15 MCV 95.7 fl (80.0-105.0) 07/26/18 07:15 MCH 30.0 pg (25.0-35.0) 07/26/18 07:15 MCHC 31.4 g/dl (31.0-37.0) 07/26/18 07:15 RDW 18.4 % (11.5-14.5) H 07/26/18 07:15 Plt Count 465 10^3/uL (120.0-450.0) H 07/26/18 07:15 MPV 9.3 fl (7.0-11.0) 07/26/18 07:15 Gran % 74.3 % (50.0-68.0) H 07/20/18 08:45 Neut % (Auto) 72.9 % (50.0-68.0) H 07/26/18 07:15 Lymph % (Auto) 19.3 % (22.0-35.0) L 07/26/18 07:15 Bullitt % (Auto) 5.5 % (1.0-6.0) 07/26/18 07:15 Eos % (Auto) 2.1 % (1.5-5.0) 07/26/18 07:15 Baso % (Auto) 0.2 % (0.0-3.0) 07/26/18 07:15 Gran # 13.84 (1.4-6.5) H 07/20/18 08:45 Lymph # (Auto) 2.5 (1.2-3.4) 07/26/18 07:15 Bullitt # (Auto) 0.7 (0.1-0.6) H 07/26/18 07:15 Eos # (Auto) 0.3 (0.0-0.7) 07/26/18 07:15 Baso # (Auto) 0.02 K/mm3 (0.0-2.0) 07/26/18 07:15 Absolute Neuts (auto) 9.39 (1.4-6.5) H 07/26/18 07:15 ESR 38 mm/hr (0.0-20.0) H 07/20/18 08:45 Retic Count 2.56 % (0.5-1.5) H 07/19/18 19:46 Haptoglobin 165.2 mg/dL (30.0-200.0) 07/20/18 08:45 PT 11.2 SECONDS (9.4-12.5) 07/19/18 20:10 INR 1.01 07/19/18 20:10 APTT 28.6 Seconds (26.9-38.3) 07/19/18 20:10 Sodium 149 mmol/L (132-148) H 07/26/18 07:15 Potassium 3.7 mmol/L (3.6-5.0) 07/26/18 07:15 Chloride 113 mmol/L (98-107) H 07/26/18 07:15 Carbon Dioxide 35 mmol/L (21-33) H 07/26/18 07:15 Anion Gap 4 (10-20) L 07/26/18 07:15 BUN 78 mg/dL (7-21) H 07/26/18 07:15 Creatinine 1.1 mg/dl (0.7-1.2) 07/26/18 07:15 Est GFR ( Amer) 57 07/26/18 07:15 Est GFR (Non-Af Amer) 47 07/26/18 07:15 POC Glucose (mg/dL) 352 mg/dL (65-110) H 07/22/18 06:50 Random Glucose 160 mg/dL (70-110) H 07/26/18 07:15 Calcium 7.9 mg/dL (8.4-10.5) L 07/26/18 07:15 Phosphorus 3.3 mg/dL (2.5-4.5) 07/25/18 07:20 Magnesium 2.1 mg/dL (1.7-2.2) 07/25/18 07:20 Iron 39 ug/dL (45-180) L 07/19/18 20:10 TIBC 123 ug/dL (265-497) L 07/19/18 20:10 % Saturation 32 % (20-55) 07/19/18 20:10 Ferritin 332.0 ng/mL 07/19/18 20:10 Total Bilirubin 0.2 mg/dL (0.2-1.3) 07/26/18 07:15 AST 31 U/L (14-36) 07/26/18 07:15 ALT 28 U/L (7-56) 07/26/18 07:15 Alkaline Phosphatase 86 U/L (38-126) 07/26/18 07:15 Lactate Dehydrogenase 512 U/L (333-699) 07/20/18 08:45 C-Reactive Protein 31.50 mg/L (0.0-9.9) H 07/20/18 08:45 Total Protein 5.6 g/dL (5.8-8.3) L 07/26/18 07:15 Albumin 2.2 g/dL (3.0-4.8) L 07/26/18 07:15 Globulin 3.4 gm/dL 07/26/18 07:15 Albumin/Globulin Ratio 0.7 (1.1-1.8) L 07/26/18 07:15 Vitamin B12 > 1000 pg/mL (239-931) H 07/20/18 08:45 Folate 9.3 ng/mL 07/20/18 08:45 Procalcitonin 0.15 NG/ML (0.19-0.49) L 07/20/18 08:45 Urine Color Yellow (YELLOW) 07/20/18 00:35 Urine Appearance Cloudy (CLEAR) 07/20/18 00:35 Urine pH 6.0 (4.7-8.0) 07/20/18 00:35 Ur Specific [place] 1.020 (1.005-1.035) 07/20/18 00:35 Urine Protein 30 mg/dL (<30 mg/dL) H 07/20/18 00:35 Urine Glucose (UA) Negative mg/dL (NEGATIVE) 07/20/18 00:35 Urine Ketones Negative mg/dL (NEGATIVE) 07/20/18 00:35 Urine Blood Moderate (NEGATIVE) H 07/20/18 00:35 Urine Nitrate Negative (NEGATIVE) 07/20/18 00:35 Urine Bilirubin Negative (NEGATIVE) 07/20/18 00:35 Urine Urobilinogen 0.2 E.U./dL (<1 E.U./dL) 07/20/18 00:35 Ur Leukocyte Esterase Moderate Yoselyn/uL (NEGATIVE) H 07/20/18 00:35 Urine RBC 2 - 5 /hpf (0-2) H 07/20/18 00:35 Urine WBC 5 - 10 /hpf (0-6) H 07/20/18 00:35 Ur Epithelial Cells 1 - 3 /hpf (0-5) 07/20/18 00:35 Amorphous Sediment Moderate /hpf (NONE) 07/20/18 00:35 Urine Bacteria Few /hpf (NONE) 07/20/18 00:35 Blood Type O POSITIVE 07/22/18 12:30 Antibody Screen Negative 07/22/18 12:30 Crossmatch See Detail 07/22/18 12:30 BBK History Checked Patient has bt 07/22/18 12:30 Discharge Plan - Follow Up Plan Patient education suggested?: Yes Attending/Attestation - Attestation I have personally seen and examined this patient.: Yes I have fully participated in the care of the patient.: Yes I have reviewed all pertinent clinical information, including history, physical exam and plan: Yes Notes (Text): 07/26/18 16:36 88 year old female with past medical history of Parkinson's disease, dementia, hypertension, TIA, s/p PEG, and multiple sacral decubiti s/p recent debridement and wound vac placement who presented from SNF with acute anemia, likely secondary to severe blood loss from wound vac site. Hemoglobin has improved after prbc transfusions. She was seen by surgery and wound vac was changed. S he was also seen by ID and maintained on iv antibiotics. LTACH was denied, patient is discharged to [facility]. Continue with free water flush through PEG. Repeat labs in AM; monitor for hypernatremia. Monitor CBC/BP. Overall prognosis is guarded. Artemio Nieves MD Hospitalist.
[2018-07-26] MEDS ORDERED: Nystatin 100,000 Units/gm Topical Pow(15 gm) TOP SCH (18:00)
== END 2018-07-26 21:09 | DRG 811 ==
LOC: ED 19:09 → ERH 22:46 → 2RSO 07-20 01:44 → 5RSO 07-22 02:45
PROVIDERS: ADMIT Internal Medicine; ATTEND Internal Medicine
PROC: 30233N1 Transfusion of Nonautologous Red Blood Cells into Peripheral Vein, Percutaneous Approach (ICD-10-PCS; principal; 2018-07-19)
DX: D62 Acute posthemorrhagic anemia (principal); L89.154 Pressure ulcer of sacral region, stage 4; L03.317 Cellulitis of buttock; M46.28 Osteomyelitis of vertebra, sacral and sacrococcygeal region; N39.0 Urinary tract infection, site not specified; E78.5 Hyperlipidemia, unspecified; G20 Parkinson's disease; F02.80 Dementia in other diseases classified elsewhere, unspecified severity, without behavioral disturbance, psychotic disturbance, mood disturbance, and anxiety; I10 Essential (primary) hypertension; Z74.01 Bed confinement status; Z86.73 Personal history of transient ischemic attack (TIA), and cerebral infarction without residual deficits; Z93.1 Gastrostomy status; D72.829 Elevated white blood cell count, unspecified; D63.8 Anemia in other chronic diseases classified elsewhere; R13.10 Dysphagia, unspecified; E87.6 Hypokalemia; B96.4 Proteus (mirabilis) (morganii) as the cause of diseases classified elsewhere; Z16.24 Resistance to multiple antibiotics

== ENCOUNTER 2018-11-18 15:39 | Emergency (ER) | payer MEDICARE ==
[2018-11-18 15:39] VITALS: BMI 29.2
[2018-11-18 15:46] VITALS: RESP 18; TEMP 98.5; O2SAT 98
[2018-11-18] MEDS ORDERED: Lidocaine 1% Inj (20ml) ONE (16:25)
[2018-11-18] MEDS ORDERED: Iohexol 240 (50 ml) ONE (16:40)
--- NOTE | 2018-11-18 17:39 | RAD ---
Date of service: 11/18/2018 HISTORY: confirm tube placement COMPARISON: Correlations made to CT scan of the chest, abdomen pelvis dated 08/11/2017 TECHNIQUE: 1 view obtained. FINDINGS: BOWEL: Gastrostomy tube within the stomach. Injected contrast via the gastrostomy tube demonstrates opacification of the stomach without evidence of leak. No obstruction. No free air. BONES: Normal. OTHER FINDINGS: None. IMPRESSION: Gastrostomy tube in satisfactory position.
--- NOTE | 2018-11-18 18:24 | ED PDOC ---
Arrival/HPI - General Chief Complaint: GI Problem Time Seen by Provider: 11/18/18 15:51 Historian: Other (Son) - History of Present Illness Narrative History of Present Illness (Text): 11/18/18 18:25 An 88 year old female, whose past medical history includes dementia/Parkinson's Disease, Unspecified Dementia, hypertension, hyperlipidemia, TIA, chronic back pain, and multiple SDU's, presents to the ED accompanied by her son, complaining of a G-Tube displacement. Son reports patient's G-Tube has fallen out prior to arrival. G-Tube was placed a couple of years ago. Son denies patient has any other complaints. Time/Duration: Prior to Arrival Symptom Onset: Gradual Symptom Course: Unchanged Activities at Onset: Light Context: Home Past Medical History - Provider Review Nursing Documentation Reviewed: Yes - Past History Past History: No Previous - Infectious Disease Hx of Infectious Diseases: None - Reproductive Menopause: Yes - Cardiac Hx Pacemaker: No - Pulmonary Hx Respiratory Disorders: No - Neurological Hx Neurological Disorder: Yes HX Cerebrovascular Accident: Yes (TIA) - HEENT Hx HEENT Disorder: Yes (eyeglasses) Other/Comment: eye sx fatty tissue removed from both eyelids - Renal Hx Renal Disorder: No - Endocrine/Metabolic Hx Endocrine Disorders: No - Hematological/Oncological Hx Cancer: No - Integumentary Hx Dermatological Disorder: No - Musculoskeletal/Rheumatological Hx Falls: No - Gastrointestinal Hx Gastrointestinal Disorders: Yes Other/Comment: PEG tube - Genitourinary/Gynecological Hx Genitourinary Disorders: Yes Other/Comment: [place] - Psychiatric Hx Psychophysiologic Disorder: No Hx Substance Use: No - Surgical History Hx Mastectomy: No - Anesthesia Hx Anesthesia Reactions: No Hx Malignant Hyperthermia: No Family/Social History - Physician Review Nursing Documentation Reviewed: Yes Family/Social History: No Known Family HX Smoking Status: Never Smoked Hx Alcohol Use: No Hx Substance Use: No Allergies/Home Meds Allergies/Adverse Reactions: Allergies No Known Allergies Allergy (Verified 11/18/18 15:43) Home Medications: Home Meds Medication Instructions Recorded Confirmed Albuterol/Ipratropium [Duoneb 3 3 ml IH Q4 PRN 07/08/18 07/19/18 mg/0.5 mg (3 ml) UD] Atorvastatin [Lipitor] 20 mg GT DAILY 07/08/18 07/19/18 Clopidogrel [Plavix] 75 mg GT DAILY 07/08/18 07/19/18 Collagenase [Santyl] 250 unit TP DAILY 07/08/18 07/19/18 Memantine [Namenda] 5 mg GT BID 07/08/18 07/19/18 Zinc [Zinc Sulfate 220 mg Cap] 50 mg GT DAILY 07/08/18 07/20/18 Meropenem 1g/NS 100mL IVPB 1 g IV Q8H 07/19/18 07/19/18 Review of Systems - Physician Review All systems were reviewed & negative as marked: Yes - Review of Systems Constitutional: absent: Fevers Eyes: absent: Vision Changes ENT: absent: Hearing Changes Respiratory: absent: SOB, Cough Cardiovascular: absent: Chest Pain Gastrointestinal: Other (G-Tube fell out) Genitourinary Female: absent: Dysuria Musculoskeletal: absent: Back Pain, Neck Pain Skin: absent: Rash Neurological: absent: Headache, Dizziness Endocrine: absent: Diaphoresis Hemo/Lymphatic: absent: Adenopathy Psychiatric: absent: Anxiety, Depression Physical Exam Vital Signs Reviewed: Yes Vital Signs Temp Pulse Resp BP Pulse Ox 11/18/18 15:46 98.5 F 106 H 18 111/69 98 Temperature: Afebrile Blood Pressure: Normal Pulse: Tachycardic Respiratory Rate: Normal Appearance: Positive for: Well-Appearing, Non-Toxic, Comfortable Pain Distress: None - Systems Exam Head: Present: Atraumatic, Normocephalic Pupils: Present: PERRL Extroacular Muscles: Present: EOMI Conjunctiva: Present: Normal Respiratory/Chest: Present: Clear to Auscultation, Good Air Exchange. No: Respiratory Distress, Accessory Muscle Use Cardiovascular: Present: Murmurs (Systolic) Abdomen: Present: Normal Bowel Sounds, Other (Stroma in epigastric region, no active bleeding.) Skin: Present: Other (Extensive decubiti on back and posterior aspect of shoulders.) Medical Decision Making ED Course and Treatment: 11/18/18 18:18 Impression: An 88 year old female who presents to the ED complaining of G tube displacement. Plan: -- Reassess and disposition Prior Visits: Notes and results from previous visits were reviewed. Patient was last seen in the emergency department on 07/19/18. Progress Notes: university relations vice president evaluated decubiti, currently stabilized. Patient will be discharged and will receive wound care three times a week. - RAD Interpretation Radiology Orders: 11/18/18 16:30 ABDOMEN (FLAT PLATE) 1VIEW [RAD] Stat - Procedure PROCEDURE NOTE (Text): 11/18/18 18:33 PROCEDURE: GASTROSTOMY TUBE REPLACEMENT Performed by the emergency provider Consent: Informed consent, after discussion of the risks, benefits, and alternatives to the procedure was obtained. Timeout: A timeout to verify the correct patient, procedure, and site was performed immediately prior to the procedure. Indication: G-tube dislodgement. Gastrostomy Tube Size: Balloon was inflated with 20 cc saline. It was secured by 4 2-0 nylon sutures. Confirmation: Gastrostomy tube placement was verified by X-Ray. Post-procedure: Patient tolerated the procedure well with no immediate complications - Scribe Statement The provider has reviewed the documentation as recorded by the Buzz Hiale Provider Scribe Attestation: All medical record entries made by the Scribe were at my direction and personally dictated by me. I have reviewed the chart and agree that the record accurately reflects my personal performance of the history, physical exam, medical decision making, and the department course for this patient. I have also personally directed, reviewed, and agree with the discharge instructions and disposition. Disposition/Present on Arrival - Present on Arrival Any Indicators Present on Arrival: No History of DVT/PE: No History of Uncontrolled Diabetes: No Urinary Catheter: Yes History of Decub. Ulcer: No History Surgical Site Infection Following: None - Disposition Have Diagnosis and Disposition been Completed?: Yes Diagnosis: Dislodged gastrostomy tube Disposition: HOME/ ROUTINE Disposition Time: 17:40 Condition: IMPROVED Discharge Instructions (ExitCare): How to Care for Your PEG Tube , How to Give a Tube Feeding Additional Instructions: IMAN LACKEY, thank you for letting us take care of you today. Your provider was Surjit Hart DO and you were treated for FEEDING TUBE DISLODGED. The emergency medical care you received today was directed at your acute symptoms. If you were prescribed any medication, please fill it and take as directed. It may take several days for your symptoms to resolve. Return to the Emergency Department if your symptoms worsen, do not improve, or if you have any other problems. Please contact your doctor or call one of the physicians/clinics you have been referred to that are listed on the Patient Visit Information form that is included in your discharge packet. Bring any paperwork you were given at discharge with you along with any medications you are taking to your follow up visit. Our treatment cannot replace ongoing medical care by a primary care provider outside of the emergency department. Thank you for allowing the [facility] team to be part of your care today. The feeding tube is in place and can be used. Follow up with your primary care doctor and wound care team as scheduled. Return to the emergency room for any concerns. Referrals: [facility], [Non-Staff] - Follow up with primary Forms: [employer] (Armenian)
[2018-11-18 18:25] VITALS: BP 113/65; PULSE 95
--- NOTE | 2018-11-19 08:22 | CP.PCM.PN ---
Subjective - Date & Time of Evaluation Date of Evaluation: 11/18/18 Time of Evaluation: 16:30 - Subjective Subjective: Called by ED to evaluate patients decubitous ulcers. Pt is on home hospice and has her wound care done by family on weekends and visiting nurse during the week. Pt has bilateral scapular ulcers, a mid back ulcer, and a large sacral ulcer with a midline skin bridge. All ulcers except for the R scapular ulcer are clean based with good granulation tissue. R scapular ulcer has small amount of sloughing eschar with good granulation tissue underneath. No need for surgical debridement, countinue with usual home wound care. Discussed patient with Dr. Norman. PGY4 Objective - Vital Signs/Intake and Output Vital Signs (last 24 hours): Temp Pulse Resp BP Pulse Ox 98.5 F 95 H 18 113/65 98 11/18/18 15:46 11/18/18 18:24 11/18/18 18:24 11/18/18 18:24 11/18/18 18:24
== END 2018-11-18 19:28 | disposition home or self-care (01) ==
LOC: ED 15:39
DX: Z43.1 Encounter for attention to gastrostomy (principal)
CPT/HCPCS: 43762; 74018; 99283; Q9966